=== PATIENT | female | born 1960 | race Caucasian/White ===

== ENCOUNTER → 2018-07-22 09:52 | Outpatient (BNVA) | payer MEDICARE, MEDICAID, SELFPAY | PROVIDERS: PCP Family Medicine; Visit Provider Orthopaedic Surgery | DX: M17.12 Unilateral primary osteoarthritis, left knee (principal); Z96.651 Presence of right artificial knee joint | CPT/HCPCS: 20610; 99211; 99213; J7325 ==

== ENCOUNTER 2018-08-16 15:09 | Emergency (ER) | payer MEDICARE, MEDICAID, SELFPAY ==
[2018-08-16 15:37] VITALS: BP 145/77; PULSE 112; RESP 18; TEMP 36.7; O2SAT 93
--- NOTE | 2018-08-16 15:47 | DI.RAD_ITS ---
SYMPTOM/DIAGNOSIS: COUGH, WHEEZE PA AND LATERAL CHEST: Comparison is made with 10/19/14. The heart size is normal. There is minimal atelectasis versus scarring at the left lung base. No infiltrate, effusion or pulmonary edema is seen. IMPRESSION: No acute abnormality.
--- NOTE | 2018-08-16 15:50 | ED.GENADUL_ITS ---
Discharge Plan Disposition Patient Disposition: HOME Condition: Improving Discharge Details Chief Complaint: RespSymp Clinical Impression: Acute bronchitis with bronchospasm Primary Care Provider: Shahzad Olivarez ED Provider: Jimmy Caban Home Meds and New Rx's Prescriptions: New prednisone 20 mg tablet 40 mg PO DAILY 5 Days Qty: 10 RF: 0 doxycycline hyclate 100 mg capsule 100 mg PO BID 10 Days Qty: 20 RF: 0 Continued simvastatin 20 MG tablet 1 tab PO DAILY Qty: 90 RF: 3 diclofenac sodium 75 MG tablet,delayed release (DR/EC) 75 mg PO BID PRNQty: 180 RF: 3 doxepin 100 MG capsule 200 mg PO HS Qty: 60 RF: 11 gabapentin 300 MG capsule 300 - 600 mg PO BID Qty: 90 RF: 5 lisinopril-hydrochlorothiazide 1 EACH tablet 1 tab-cap PO DAILY Qty: 90 RF: 3 ProAir HFA 90 mcg/actuation HFA aerosol inhaler 2 puff Inhalation QID PRN (Reason: bronchospasm) Qty: 6.7 RF: 3 acetaminophen [Tylenol] 325 MG tablet 2 tab PO PRN PRNRF: 0 aripiprazole [Abilify] 20 MG tablet 30 mg PO DAILY RF: 0 Discharge Instructions Instructions: Acute Bronchitis (ED) Additional Instructions: Home to rest today. Small, frequent sips of fluids to maintain hydration. Begin antibiotics today, continue the prednisone tomorrow as prescribed. Return for any acute concerns. Please follow-up with regular doctor if not improved in 5days Medical Decision Making Pleasant 57-year-old female with a history of COPD presents with 2 days of cough, congestion and now some mild to moderate wheezing. She has a O2 sat of 93% and had a triage pulse of 112. She is speaking full sentences in no acute distress. Differential diagnosis includes bronchitis with bronchospasm, must exclude underlying pneumonia. Patient given DuoNeb and referred for chest x- ray. Question linear atelectasis on the left base, otherwise no acute findings. She is improved with inhaled updraft, will require a burst of steroids given her underlying COPD and given question of underlying pneumonitis I will place her on a course of antibiotics. She is stable and appropriate discharge. Discussed return precautions as well as follow-up with her prior to discharge HPI General Mode of arrival: ambulatory . Date/Time Provider Initiated Documentation: 08/16/18 15:40 . Limitations to Documentation: no limitations . Information obtained by: patient . History of Present Illness 57 year old F presents to the emergency department with the chief complaint of 2 days of cough, congestion, wheezing, described as similar to prior episodes, Quality is described as dull, and is localized to the chest. Patient reports no radiation. Patient started experiencing this day(s) and it has been intermittent. No relieving factors improve symptom(s), No exacerbating facto rs reported . Patient notes cough. Patient did receive the following treatments prior to arrival, other (Albuterol) Related Data Home Medications Medication Instructions Recorded Confirmed acetaminophen [Tylenol] 2 tab PO PRN PRN 10/19/14 08/16/18 aripiprazole [Abilify] 30 mg PO DAILY 02/08/15 08/16/18 diclofenac sodium 75 mg PO BID PRN #180 tab-cap 08/16/17 08/16/18 simvastatin 1 tab PO DAILY #90 tab-cap 08/16/17 08/16/18 doxepin 200 mg PO HS #60 tab-cap 10/25/17 08/16/18 gabapentin 300 - 600 mg PO BID #90 tab-cap 10/29/17 07/22/18 lisinopril-hydrochlorothiazide 1 tab-cap PO DAILY #90 tab-cap 02/12/18 08/16/18 albuterol sulfate HFA 90 2 puff INHALATION QID PRN #6.7 gm 05/13/18 08/16/18 mcg/actuation aerosol inhaler doxycycline hyclate 100 mg PO BID 10 Days #20 cap 08/16/18 prednisone 40 mg PO DAILY 5 Days #10 tab 08/16/18 Previous Rx's Medication Instructions Recorded simvastatin 1 tab PO DAILY #90 tab-cap 08/16/17 doxepin 200 mg PO HS #60 tab-cap 10/25/17 gabapentin 300 - 600 mg PO BID #90 tab-cap 10/29/17 lisinopril-hydrochlorothiazide 1 tab-cap PO DAILY #90 tab-cap 02/12/18 albuterol sulfate HFA 90 2 puff INHALATION QID PRN #6.7 gm 05/13/18 mcg/actuation aerosol inhaler doxycycline hyclate 100 mg PO BID 10 Days #20 cap 08/16/18 prednisone 40 mg PO DAILY 5 Days #10 tab 08/16/18 Allergies Allergy/AdvReac Type Severity Reaction Status Date / Time No Known Allergies Allergy Unverified 08/16/18 15:41 General Stated Complaint: RespSymp BUFFY: 3 Review of Systems Review of Systems 8 systems reviewed and otherwise negative [facility] Surgical History Cholecystectomy (~06/2013) EGD - MAC KNEE SURGERY Replacement of total knee joint (04/17/17) Total replacement of hip ULCER/STOMACH SURGERY Family History Mother Essential hypertension Hyperlipidemia Stroke Grandfather Essential hypertension Stroke Father No problems noted. Grandmother Essential hypertension Stroke Grandfather Essential hypertension Stroke Grandmother No problems noted. Son No problems noted. Son No problems noted. Social History Smoking/Tobacco Use Status: Current-Occasional Exam Narrative Exam Narrative: GEN: awake, alert, oriented 3. Pleasant, well groomed, interactive. HEAD: Normocephalic, atraumatic ENT: Mucous membranes moist, oropharynx unremarkable, External ear exam unremarkable EYES: PERRL, EOMI NECK: Full ROM, no RADHA, no menigismus CHEST/RESP: Nontender,l, bilateral end expiratory wheeze CARDIOVASCULAR: RRR, no murmur, rub hazel. 2+ Rad pulse bilateral ABDOMEN: Soft, nontender, no mass. +Bowel sounds EXT: Full ROM, no edema, no rash Neuro: Grossly normal neurologic exam, conversant, interactive. Psych: Speech fluent, thoughts congruent, affect normal Course Vital Signs Temperature 36.7 C 08/16/18 15:37 Pulse 112 H 08/16/18 15:37 Respiratory Rate 18 08/16/18 15:37 Blood Pressure 145/77 H 08/16/18 15:37 Pulse Oximetry 93 L 08/16/18 15:37 Temperature 36.7 C 08/16/18 15:37 Temperature Source Temporal Artery Scan 08/16/18 15:37 Pulse 112 H 08/16/18 15:37 Respiratory Rate 18 08/16/18 15:37 Blood Pressure 145/77 H 08/16/18 15:37 Blood Pressure Position Sitting 08/16/18 15:37 Pulse Oximetry 93 L 08/16/18 15:37 Oxygen Delivery Method Room Air 12/29/18 15:37 Oxygen Flow Rate 0 08/16/18 15:37 Pain Level 0 08/16/18 15:37
[2018-08-16] MEDS: predniSONE 20 MG TAB 60 MG PO (15:52)
[2018-08-16 15:54] VITALS: RESP 1; RESP 8
[2018-08-16] MEDS: Albuterol/Ipratropium 3 ML UPD VIAL UPD (15:54)
[2018-08-16 16:24] VITALS: O2SAT 95
--- NOTE | 2018-08-16 16:46 | DI.VRAD_ITS ---
EXAM: XR Chest, 2 Views EXAM DATE/TIME: 08/16/2018 3:48 PM CLINICAL HISTORY: 57 years old, female; Signs and symptoms; Cough and wheezing TECHNIQUE: XR of the chest, 2 views. COMPARISON: No relevant prior studies available. FINDINGS: Lungs: Minimal linear atelectasis and/or scarring the left lung base. No pulmonary consolidation. Mild COPD. Pleural space: No pleural effusion or pneumothorax. Heart/Mediastinum: The cardiomediastinal silhouette and pulmonary vasculature are within normal limits. Bones/joints: There is mild scoliosis of the thoracolumbar spine. IMPRESSION: 1. Mild COPD. 2. Linear atelectasis and/or scarring left lung base. Dictated and Authenticated by: Beny Reed MD. Ordering:GEOVANI Marquez MD
== END 2018-08-16 16:52 | disposition home or self-care (01) ==
PROVIDERS: Emergency Provider Emergency Medicine; PCP Family Medicine
DX: J44.0 Chronic obstructive pulmonary disease with (acute) lower respiratory infection (principal); F17.210 Nicotine dependence, cigarettes, uncomplicated
CPT/HCPCS: 94640; 99283; 71046; J7512; J7620

== ENCOUNTER 2018-08-17 12:09 | Inpatient (IN) | payer MEDICARE, MEDICAID, SELFPAY ==
[2018-08-17] VITALS (74 sets, daily range): BP systolic 80–159; BP diastolic 64–113; PULSE 102–133; RESP 4–31; TEMP 36.5–37.5; O2SAT 84–93
--- NOTE | 2018-08-17 12:45 | W.ED.GENAD ---
Discharge Plan Disposition Patient Disposition: [facility] INPATIENT Condition: Serious Discharge Details Chief Complaint: SOB Clinical Impression: Asthma exacerbation in COPD, Bronchitis Primary Care Provider: Shahzad Olivarez ED Provider: Juan Douglass Home Meds and New Rx's Prescriptions: No Action simvastatin 20 MG tablet 1 tab PO DAILY Qty: 90 RF: 3 diclofenac sodium 75 MG tablet,delayed release (DR/EC) 75 mg PO BID PRNQty: 180 RF: 3 doxepin 100 MG capsule 200 mg PO HS Qty: 60 RF: 11 gabapentin 300 MG capsule 300 - 600 mg PO BID Qty: 90 RF: 5 lisinopril-hydrochlorothiazide 1 EACH tablet 1 tab-cap PO DAILY Qty: 90 RF: 3 ProAir HFA 90 mcg/actuation HFA aerosol inhaler 2 puff Inhalation QID PRN (Reason: bronchospasm) Qty: 6.7 RF: 3 acetaminophen [Tylenol] 325 MG tablet 2 tab PO PRN PRNRF: 0 aripiprazole [Abilify] 20 MG tablet 30 mg PO DAILY RF: 0 prednisone 20 mg tablet 40 mg PO DAILY 5 Days Qty: 10 RF: 0 doxycycline hyclate 100 mg capsule 100 mg PO BID 10 Days Qty: 20 RF: 0 Medical Decision Making 12:53 --57-year-old female with history of COPD, recently seen and diagnosed with bronchitis and treated with prednisone and doxycycline, returns with worsening symptoms. Patient is tachypneic and hypoxic on room air and tachycardic. She is requiring 6 L of oxygen to maintain saturation at 93%. She has decreased breath sounds bilaterally with some wheeze and prolonged expiratory phase. Concerned about persistent acute COPD exacerbation with bronchitis. She may have a pneumonia as there was a linear atelectasis noted on chest x-ray yesterday. Plan is to consult respiratory therapy to assist in management. I will order a DuoNeb treatment at this time as well as additional Solu-Medrol to be given IV. Plan to repeat chest x-ray. Will check influenza testing. ECG reviewed and interpreted by me: Sinus tachycardia 128 bpm, normal axis, no STEMI, nondiagnostic. 15:38 -- Patient reassessed: Feels a little better and is moving more air. Respiratory therapy has assisted in the care of the patient. Patient remains tachycardic and hypoxic. Labs reviewed and nondiagnostic. Reviewed and no significant change from yesterday. Plan to cover more broadly with Levaquin 750 mg IV. Plan to admit for further treatment given failing outpatient management and ED course. 15:54 -- Spoke with Dr. Ledesma who will admit - requests bridging orders to floor and TSH, lactate and blood cultures pending at time of admission. HPI General Mode of arrival: ambulatory. Date/Time Provider Initiated Documentation: 08/17/18 12:32. Limitations to Documentation: no limitations. Information obtained by: patient. HPI Narrative: 57yo female with history of COPD, presents with chief complaint of shortness of breath. Patient notes that she was here yesterday for 2-3 days of cough and shortness of breath. She had a chest x-ray that revealed questionable linear atelectasis of the left base, she was treated for bronchitis with bronchospasm and received albuterol neb and prednisone and doxycycline. She has been taking medication as prescribed and noted that she seemed worse today. Last night she used her albuterol inhaler and it did not seem to help. Symptoms are now severe. She states that she feels like she has trouble catching her breath. Cough remains nonproductive. No modifiers. She has no associated leg swelling, calf pain or chest pain. Related Data Home Medications Medication Instructions Recorded Confirmed acetaminophen [Tylenol] 2 tab PO PRN PRN 10/19/14 08/17/18 aripiprazole [Abilify] 30 mg PO DAILY 02/08/15 08/16/18 diclofenac sodium 75 mg PO BID PRN #180 tab-cap 08/16/17 08/16/18 simvastatin 1 tab PO DAILY #90 tab-cap 08/16/17 08/17/18 doxepin 200 mg PO HS #60 tab-cap 10/25/17 08/16/18 gabapentin 300 - 600 mg PO BID #90 tab-cap 10/29/17 08/17/18 lisinopril-hydrochlorothiazide 1 tab-cap PO DAILY #90 tab-cap 02/12/18 08/17/18 albuterol sulfate HFA 90 2 puff INHALATION QID PRN #6.7 gm 05/13/18 08/17/18 mcg/actuation aerosol inhaler doxycycline hyclate 100 mg PO BID 10 Days #20 cap 08/16/18 08/17/18 prednisone 40 mg PO DAILY 5 Days #10 tab 12/29/18 12/30/18 Previous Rx's Medication Instructions Recorded simvastatin 1 tab PO DAILY #90 tab-cap 08/16/17 doxepin 200 mg PO HS #60 tab-cap 10/25/17 gabapentin 300 - 600 mg PO BID #90 tab-cap 10/29/17 lisinopril-hydrochlorothiazide 1 tab-cap PO DAILY #90 tab-cap 02/12/18 albuterol sulfate HFA 90 2 puff INHALATION QID PRN #6.7 gm 05/13/18 mcg/actuation aerosol inhaler doxycycline hyclate 100 mg PO BID 10 Days #20 cap 08/16/18 prednisone 40 mg PO DAILY 5 Days #10 tab 08/16/18 Allergies Allergy/AdvReac Type Severity Reaction Status Date / Time No Known Allergies Allergy Unverified 08/17/18 12:24 General Stated Complaint: SOB BUFFY: 3 Review of Systems Review of Systems All systems reviewed & are unremarkable except as noted in HPI and below Cardiovascular Denies edema and Reports dyspnea Respiratory Reports cough, Reports dyspnea and Reports wheezing Allergic/Immunologic Reports wheezing PFSH Medical History COPD (chronic obstructive pulmonary disease) (Chronic) Surgical History Cholecystectomy (~06/2013) EGD - MAC KNEE SURGERY Replacement of total knee joint (04/17/17) Total replacement of hip ULCER/STOMACH SURGERY Family History Mother Essential hypertension Hyperlipidemia Stroke Grandfather Essential hypertension Stroke Father No problems noted. Grandmother Essential hypertension Stroke Grandfather Essential hypertension Stroke Grandmother No problems noted. Son No problems noted. Son No problems noted. Social History Smoking/Tobacco Use Status: Current-Occasional Exam Const General: cooperative and no acute distress HENMT Head: normocephalic and atraumatic Mouth: moist mucous membranes Eyes Conjunctivae: normal conjunctivae Sclera: normal sclerae EOM: EOM intact bilaterally Neck Neck: trachea midline and no JVD Resp Effort & Inspection: cough, no stridor and tachypneic Auscultation: diminished lung sounds bilaterally, no rales and wheezes expiratory wheezes Cardio Jugular venous pressure: no JVD Rate: tachycardic Rhythm: regular rhythm GI Palpation: soft, not firm, no guarding, no masses, not rigid and nontender Skin General skin exam: no rashes or lesions noted Neuro General: alert, awake, oriented x3 and tone normal Extrem General: no calf tenderness bilaterally and no edema Psych Appearance: grossly normal Mental Status: mental status grossly normal Speech and Movement: speech and movement normal Course Vital Signs Temperature 37 C 08/17/18 12:21 Pulse 133 H 08/17/18 12:21 Respiratory Rate 20 08/17/18 12:21 Blood Pressure 159/84 H 08/17/18 12:21 Pulse Oximetry 86 L 08/17/18 12:21 Temperature 37.2 C 08/17/18 12:38 Temperature Source Oral 08/17/18 12:38 Pulse 133 H 08/17/18 12:21 Respiratory Rate 20 08/17/18 12:39 Respiratory Effort 08/17/18 12:39 Respiratory Depth Normal 08/17/18 12:39 Respiratory Pattern Normal 08/17/18 12:39 Blood Pressure 159/84 H 08/17/18 12:21 Blood Pressure Position Sitting 08/17/18 12:21 Pulse Oximetry 86 L 08/17/18 12:25 Oxygen Delivery Method Nasal Cannula 08/17/18 12:25 Oxygen Flow Rate 6 08/17/18 12:25 Pain Level 0 08/17/18 12:21
[2018-08-17] MEDS: Albuterol/Ipratropium 3 ML UPD VIAL UPD ×2 (12:56→21:36)
[2018-08-17] MEDS: Normal Saline 1,000 ML 1000 ML IV (13:00)
[2018-08-17] MEDS: methylPREDNISolone SUCC 40 MG VIAL IVP (13:09)
[2018-08-17 13:11] LABS: Abs Immature Grans 0.03 k/cumm (0.0-0.09); Absolute Basophil Count 0.02 k/cumm (0.0-0.2); Absolute Lymphocyte Count 0.83 k/cumm (1.2-3.4); Absolute Neutrophil Count 7.17 k/cumm (1.2-6.7); Basophils % 0.2; HCT 46.1 % (36.0-46.0); HGB 15.2 g/dL (12.0-15.5); Immature Grans % 0.4; Lymphocytes % 9.9; Mean Corpuscular Hemoglobin 29.6 pg (27.0-33.0); Mean Corpuscular Volume 89.9 fL (80-95); Mean Platelet Volume 9.6 fL (8.0-11.0); Monocytes % 3.6; Neutrophils % 85.9; Platelet Count 296 x1000/uL (130-400); RBC 5.13 m/cumm (4.00-5.20); White Blood Cell Count 8.35 k/cumm (4.4-10.8)
[2018-08-17 13:25] LABS: ALT 33 U/L (12-78); AST 20 U/L (15-37); Albumin 3.7 g/dL (3.4-5.0); Alkaline Phosphatase 107 U/L (46-116); Anion Gap 9.5 mmol/L (3-11); BUN 10 mg/dL (7-18); Bilirubin, Total 0.3 mg/dL (0.2-1.0); CO2 26.5 mmol/L (21.0-32.0); CREATININE 0.63 mg/dL (0.55-1.02); Calcium 10.1 mg/dL (8.5-10.1); Chloride 101 mmol/L (98-107); Glucose 154 mg/dL (70-100); Magnesium 1.8 mg/dL (1.8-2.4); Sodium 137 mmol/L (136-145); Total Protein 7.8 g/dL (6.4-8.2)
[2018-08-17] MEDS: Albuterol/Ipratropium 3 ML UPD VIAL (13:34)
--- NOTE | 2018-08-17 15:03 | DI.RAD_ITS ---
SYMPTOM/DIAGNOSIS: F/U, COPD PA AND LATERAL CHEST: Comparison is made with 08/16/18. Heart size and pulmonary vasculature are stable. The lungs show no evidence of congestive heart failure or pneumonia. No effusions or pneumothoraces are identified. There is hyperinflation of the lungs with flattened diaphragms consistent with underlying COPD. Stable degenerative changes are seen in the spine. IMPRESSION: No acute pulmonary process.
--- NOTE | 2018-08-17 15:49 | DI.VRAD_ITS ---
EXAM: XR Chest, 2 Views EXAM DATE/TIME: 08/17/2018 3:04 PM CLINICAL HISTORY: 57 years old, female; Signs and symptoms; Cough TECHNIQUE: XR of the chest, 2 views. COMPARISON: CR XR CHEST 2V PA LATERAL 08/16/2018 4:31 PM FINDINGS: Lungs: Stable interstitial prominence. Emphysematous changes. No focal consolidation. Pleural space: Unremarkable. No pleural effusion. No pneumothorax. Heart/Mediastinum: Unremarkable. No cardiomegaly. Bones/joints: Unremarkable. IMPRESSION: No acute findings. Dictated and Authenticated by: Ruthie Tay MD. Ordering:REHAN Martinez MD
[2018-08-17] MEDS: LEVOFLOXACIN 750 MG/150 ML BAG 100 MG IVPB (16:42)
--- NOTE | 2018-08-17 20:18 | HPE_ITS ---
Date of service: 08/17/18 Time of Service: 20:06 Assessment and Plan (1) COPD (chronic obstructive pulmonary disease): Current visit: Yes Status: Chronic With apparent acute exacerbation, with noted change in cough and sputum production. Repeat chest x-ray today again negative for infiltrate. Initiate IV Solu-Medrol, and aggressive nebulizer therapy. Given change in cough and sputum production will also benefit from antibiotic therapy -received high- dose Levaquin in the ED. Will initiate 500 mg of daily levofloxacin starting tomorrow. Continue supplemental oxygen and wean as appropriate. (2) Tobacco use disorder: Current visit: Yes Status: Chronic Encourage cessation and maintain on nicotine replacement therapy while hospitalized (3) Hyperthyroidism: Current visit: Yes Status: Resolved History of hyperthyroidism that appears resolved. Patient is not on replacement therapy. Repeat TSH is normal despite acute illness. (4) Gastric ulcer: Current visit: Yes Status: Chronic History of gastric ulcers, not on PPI therapy. Given need for steroids will initiate IV Protonix (5) DVT prophylaxis: Current visit: Yes Status: Acute SC Lovenox. History of Present Illness Chief Complaint: Dyspnea Narrative: 57-year-old woman with past medical history significant for ongoing tobacco use and likely underlying COPD, referred for admission from [facility] emergency department for a likely bronchitis with COPD exacerbation. This is Giacobbe is a prior medical history significant for likely COPD and ongoing tobacco abuse. She also has a prior history of gastric ulcers, depression and anxiety, and chronic lower back pain. Hypertension and dyslipidemia are also listed as her past medical history, as is osteoarthritis. She was previously incarcerated due to narcotic abuse and distribution, as well as noted sedative drug abuse as well. Patient reports onset of dyspnea yesterday, prompting an ED visit. At that time her lab work was unremarkable, she was afebrile and non-hypoxic, and her imaging with a chest x-ray showed no infiltrate. She was initiated on oral doxycycline and prednisone, and discharged home. However she returned today with worsening of her symptoms, including noted hypoxia and tachycardia, albeit still afebrile. Repeat imaging of the chest showed no evidence of infiltrate. Given her ongoing hypoxia and tachycardia she was referred for admission for further evaluation and treatment. Review of Systems Review of Systems All systems reviewed & are unremarkable except as noted in HPI and below [facility] Medical History COPD (chronic obstructive pulmonary disease) (Chronic) Weight disorder (Chronic) Transaminase or LDH elevation (Chronic) Tobacco use disorder (Chronic) Sleep disturbance (Chronic 07/18/05) Sedative, hypnotic or anxiolytic abuse (Chronic) Hyperthyroidism (Resolved) Gastroparesis (Chronic 07/18/05) Gastric ulcer (Chronic 08/18/05) Depression (Chronic 07/18/05) COPD (chronic obstructive pulmonary disease) (Chronic) Surgical History History of back surgery (Chronic 10/17/17) Cholecystectomy (~06/2013) EGD - MAC KNEE SURGERY Replacement of total knee joint (04/17/17) Total replacement of hip ULCER/STOMACH SURGERY Family History Mother Essential hypertension Hyperlipidemia Stroke Grandfather Essential hypertension Stroke Father No problems noted. Grandmother Essential hypertension Stroke Grandfather Essential hypertension Stroke Grandmother No problems noted. Son No problems noted. Son No problems noted. Social History Smoking/Tobacco Use Status: Current-Occasional additional social history: The patient is . Has 2 children. 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 She has a [id number]-year history of smoking, currently ongoing. Denies any current illicit drug or alcohol use, but previously used and sold narcotics. Meds Home Medications Medication Instructions Recorded Confirmed Type acetaminophen [Tylenol] 2 tab PO PRN PRN 10/19/14 08/17/18 History aripiprazole [Abilify] 30 mg PO DAILY 02/08/15 08/16/18 History diclofenac sodium 75 mg PO BID PRN #180 tab-cap 08/16/17 08/16/18 History simvastatin 1 tab PO DAILY #90 tab-cap 08/16/17 08/17/18 Rx doxepin 200 mg PO HS #60 tab-cap 10/25/17 08/16/18 Rx gabapentin 300 - 600 mg PO BID #90 tab-cap 10/29/17 08/17/18 Rx lisinopril-hydrochlorothiazide 1 tab-cap PO DAILY #90 tab-cap 02/12/18 08/17/18 Rx albuterol sulfate HFA 90 2 puff INHALATION QID PRN #6.7 gm 05/13/18 08/17/18 Rx mcg/actuation aerosol inhaler doxycycline hyclate 100 mg PO BID 10 Days #20 cap 08/16/18 08/17/18 Rx prednisone 40 mg PO DAILY 5 Days #10 tab 08/16/18 08/17/18 Rx Allergies Allergy/AdvReac Type Severity Reaction Status Date / Time No Known Allergies Allergy Unverified 08/17/18 12:24 Exam Narrative Exam Narrative: General: Patient appears comfortable, AAOX3, NAD Neck: Supple CV: Regular, tachycardic, S1S2, No rubs, murmurs, or gallops. Pulmonary: Markedly decreased breath sounds diffusely with trace wheezing, no crackles or rhonchi Abdomen: + Bowel Sounds, soft, nontender, nondistended, obese in contour Vascular: No lower extremity edema Psych: Normal mood and affect. Results Imaging Chest x-ray: report reviewed Additional studies: EXAM: XR Chest, 2 Views EXAM DATE/TIME: 08/17/2018 3:04 PM CLINICAL HISTORY: 57 years old, female; Signs and symptoms; Cough TECHNIQUE: XR of the chest, 2 views. COMPARISON: CR XR CHEST 2V PA LATERAL 08/16/2018 4:31 PM FINDINGS: Lungs: Stable interstitial prominence. Emphysematous changes. No focal consolidation. Pleural space: Unremarkable. No pleural effusion. No pneumothorax. Heart/Mediastinum: Unremarkable. No cardiomegaly. Bones/joints: Unremarkable. IMPRESSION: No acute findings. Labs : 08/17/18 13:00 08/17/18 13:00 Laboratory Results - last 24 hr 08/17/18 08/17/18 08/17/18 13:00 13:00 16:05 WBC 8.35 RBC 5.13 Hgb 15.2 Hct 46.1 H MCV 89.9 MCH 29.6 MCHC 33.0 RDW 13.0 Plt Count 296 MPV 9.6 Immature Gran % 0.4 Neutrophils % 85.9 Lymphocytes % 9.9 Monocytes % 3.6 Eosinophils % 0.0 Basophils % 0.2 Absolute Neutrophils 7.17 H Absolute Lymphocytes 0.83 L Absolute Monocytes 0.30 Absolute Eosinophils 0.00 Absolute Basophils 0.02 Sodium 137 Potassium 4.0 Chloride 101 Carbon Dioxide 26.5 Anion Gap 9.5 BUN 10 Creatinine 0.63 Estimated GFR/1.73 m2 >= 60.00 Glucose 154 H Lactate 1.0 Calcium 10.1 Magnesium 1.8 Total Bilirubin 0.3 AST 20 ALT 33 Alkaline Phosphatase 107 Total Protein 7.8 Albumin 3.7 Last Vital Signs Temp 36.5 C 08/17/18 19:34 Pulse 102 H 08/17/18 19:34 Resp 20 08/17/18 19:34 BP 141/102 H 08/17/18 19:34 Pulse Ox 92 L 08/17/18 19:34
[2018-08-17] MEDS: Normal Saline Flush 10 ML SYR IVP (21:42)
[2018-08-17] MEDS: methylPREDNISolone SUCC 125 MG VIAL 60 MG IVP (21:42)
[2018-08-17] MEDS: Pantoprazole 40 MG VIAL IVP (21:46)
[2018-08-17] MEDS: Enoxaparin 40 MG/0.4 ML SYR SC (21:50)
[2018-08-17] MEDS: Doxepin 50 MG CAP 200 MG PO (22:04)
[2018-08-17] MEDS: Levalbuterol 1.25 MG/3 ML UPD VIAL UPD (22:44)
[2018-08-17] MEDS: Acetaminophen 325 MG TAB PO (23:24)
[2018-08-17] MEDS: Benzonatate 100 MG CAP PO (23:24)
[2018-08-18] VITALS (8 sets, daily range): BP systolic 132–136; BP diastolic 72–81; PULSE 103–117; RESP 4–24; TEMP 37–37.5; O2SAT 93–95
[2018-08-18] MEDS: Albuterol/Ipratropium 3 ML UPD VIAL UPD ×3 (01:23→15:36)
[2018-08-18] MEDS: methylPREDNISolone SUCC 125 MG VIAL 60 MG IVP ×3 (03:50→20:28)
[2018-08-18] MEDS: Normal Saline Flush 10 ML SYR IVP ×5 (03:50→21:43)
[2018-08-18] MEDS: Levalbuterol 1.25 MG/3 ML UPD VIAL UPD ×2 (04:02→18:11)
[2018-08-18 07:04] LABS: Abs Immature Grans 0.01 k/cumm (0.0-0.09); Absolute Basophil Count 0.01 k/cumm (0.0-0.2); Absolute Lymphocyte Count 0.42 k/cumm (1.2-3.4); Absolute Monocyte Count 0.13 k/cumm (0.11-0.7); Absolute Neutrophil Count 7.38 k/cumm (1.2-6.7); Basophils % 0.1; HCT 45.4 % (36.0-46.0); HGB 14.5 g/dL (12.0-15.5); Immature Grans % 0.1; Lymphocytes % 5.3; Mean Corp. HGB Concentration 31.9 g/dL (32.0-36.0); Mean Corpuscular Hemoglobin 29.2 pg (27.0-33.0); Mean Corpuscular Volume 91.3 fL (80-95); Mean Platelet Volume 9.9 fL (8.0-11.0); Monocytes % 1.6; Neutrophils % 92.9; Platelet Count 284 x1000/uL (130-400); RBC 4.97 m/cumm (4.00-5.20); RBC Distribution Width 13.3 % (11.7-14.6); White Blood Cell Count 7.95 k/cumm (4.4-10.8)
[2018-08-18 07:11] LABS: Anion Gap 12.5 mmol/L (3-11); BUN 12 mg/dL (7-18); CO2 27.5 mmol/L (21.0-32.0); CREATININE 0.75 mg/dL (0.55-1.02); Calcium 10.1 mg/dL (8.5-10.1); Chloride 100 mmol/L (98-107); Glucose 171 mg/dL (70-100); Potassium 3.8 mmol/L (3.5-5.1); Sodium 140 mmol/L (136-145)
[2018-08-18] MEDS: Magnesium Oxide 400 MG TAB PO (08:38)
[2018-08-18] MEDS: ARIPiprazole 15 MG TAB 30 MG PO (08:38)
[2018-08-18] MEDS: Simvastatin 20 MG TAB PO (08:38)
[2018-08-18] MEDS: Lisinopril 10 MG TAB PO (08:38)
[2018-08-18] MEDS: Potassium Chloride 20 MEQ TABCR PO (08:38)
[2018-08-18] MEDS: Nystatin POWDER 60 GM JAR TP ×2 (08:39→20:29)
--- NOTE | 2018-08-18 11:16 | PDOC.CMIN ---
- If Service Date Differs Date of service: 08/18/18 Time of Service: 11:16 Care Management Initial Assess REASON FOR HOSPITALIZATION:: COPD Exacerbation PAST MEDICAL HISTORY/PAST SURGICAL HISTORY:: COPD (chronic obstructive pulmonary disease) (Chronic). Weight disorder (Chronic). Transaminase or LDH elevation (Chronic). Tobacco use disorder (Chronic). Sleep disturbance (Chronic 07/18/05). Sedative, hypnotic or anxiolytic abuse (Chronic). Hyperthyroidism (Resolved). Gastroparesis (Chronic 07/18/05). Gastric ulcer (Chronic 08/18/05). Depression (Chronic 07/18/05). COPD (chronic obstructive pulmonary disease) (Chronic). History of back surgery (Chronic 10/17/17). Cholecystectomy (~06/2013). EGD - MAC. KNEE SURGERY. Replacement of total knee joint (04/17/17). Total replacement of hip. ULCER/STOMACH SURGERY PREVIOUS FUNCTIONAL STATUS/SOCIAL/FAMILY SUPPORTS:: Chapis resides with her mother Cherelle in [place]. She has two sons whom both reside out of state, she states that she sees them throughout the year. Chapis statest ahts he has been on disability for the past 10 years and prefers not to discuss her prior work history. She is independent at baseline, drives, and manages ADLs CURRENT FUNCTIONAL STATUS:: Currently Chapis is sitting up in bed this morning. She states that she has been having a coughing spell though states that she is feeling somewhat better. ADVANCE DIRECTIVES:: On file - mother Cherelle Akbar is agent Has patient been provided with information about the portal?: Yes Did the patient sign up for the portal?: No CODE STATUS:: Full Code INSURANCE COVERAGE / FINANCIAL ISSUES:: Medicare, Medicaid CURRENT HOME/COMMUNITY SERVICES/EQUIPMENT:: Currently Chapis has no services or medical equipment in the community. PRIMARY CARE PHYSICIAN:: Dr. Olivarez POTENTIAL DISCHARGE NEEDS:: F/U appointment with PCP PATIENT/FAMILY EDUCATION NEEDS:: Review DC instructions, any limitations, and ongoing DC planning discussion. Discuss 'Ask Me Three' ANTICIPATED BARRIERS TO DISCHARGE:: None identified at this time. TRANSPORTATION:: Via private vehicle with mother Cherelle PLAN:: Chapis will return home with no anticipated services. She will F/U with PCP and plan of care as prescribed. Chapis's mom Cherelle to transport when medically cleared.
[2018-08-18] MEDS: Benzonatate 100 MG CAP PO (11:52)
--- NOTE | 2018-08-18 13:16 | CHAPLAIN ---
Chapis was sitting up on the edge of her bed texting, when I visited. She said she didn't need a brazer crawler torch visit, but was friendly. She lives with her mom who has also recently has been sick.
--- NOTE | 2018-08-18 13:40 | PHARADMIT ---
Addendum entered by Timothy King III 08/22/18 11:46: Pharmacy Note Subjective MD notes that patient is not at baseline yet. Ambulating, decreasing O2 requirement. Objective VS-OK HR-102 No Labs O2 @ 1 L SA-O2-91% Large BM yesterday. Assessment Levaquin completes today. Plan MD will discharge home once she is off O2 and at baseline Original Note: Addendum entered by Jackelin Harvey 08/21/18 10:34: Pharmacy Note Subjective probably will keep pt another day, pt still requiring O2 Objective no labs or vs listed Assessment Levofloxain continues day 5, steroids starting to wean as of yesterday, PPI to continue while on steroids Plan continue to monitor vitals, labs, med changes Original Note: Addendum entered by Dahiana Alexandre 08/20/18 16:31: Pharmacy Note Subjective ok night, feeling better, coughing less Objective HR 107 (trending down) other vitals okay; Na 135; WBC 11.57; BG 143 Assessment Bad case of bronchitis with COPD exacerbation (previously undiagnosed) Continue levaquin 500mg daily, nebulizer therapy and IV solumedrol (dose decreased today) Sputum culture shows moderate growth Plan Continue to monitor vitals, labs, med changes Original Note: Admission Pharmacy Clinical Review COPD exacerbation, bronchitis Code Status Full Code Current Weight 117.934 kg Renally Cleared and Narrow Therapeutic Index Meds Crcl 108.9 mL/min using adjusted body weight QTc Value / Action Taken QTc 441 BP Control, Fever BP 132/80 afebrile Electrolytes reviewed within normal limits DVT Prophylaxis enoxaparin Opiate Usage / Scheduled Bowel Regimen Ordered pnp/prn Plt/SCr for Heparin / Enoxaparin plt 284 SCr 0.75 INR for Warfarin n/a H/H stable, WBC/Bands h/h 14.5/45.4 wbc 7.95 Antibiotic appropriateness levofloxacin Cultures and Sensitivities blood and sputum cultures pending rapid flu negative Surgical ABX d/c within 24 hr n/a DM control / Insulin Dosing BG 171 none Heart Failure (Check EF%) (FRANCISCO's, B-Block, Diuretics) hydrochlorothiazide, lisinopril IV to PO Switch n/a Home Meds Reviewed multiple [employer] depressants- aripiprazole, gabapentin, doxepin Home Meds Not Ordered albuterol (has duonebs ordered), doxycycline(has other abx ordered), gabapentin (pt not taking per med rec comment), prednisone (has IV steroid ordered) Comments
[2018-08-18] MEDS: LEVOFLOXACIN 500 MG/100 ML BAG 100 MG IVPB (15:38)
--- NOTE | 2018-08-18 19:52 | PGE_ITS ---
Date of Service Date of service: 08/18/18 Time of Service: 19:48 Assessment and Plan (1) COPD (chronic obstructive pulmonary disease): Current visit: Yes Status: Chronic With apparent acute exacerbation, with noted change in cough and sputum production. Repeat chest x-ray at time of admission again negative for infiltrate. Continue IV Solu-Medrol and aggressive nebulizer therapy. Given change in cough and sputum production will also benefit from antibiotic therapy - received high- dose Levaquin in the ED. Will continue 500 mg of daily levofloxacin starting today, day #2. Continue supplemental oxygen and wean as appropriate. (2) Tobacco use disorder: Current visit: Yes Status: Chronic Encourage cessation and maintain on nicotine replacement therapy while hospitalized. (3) Hyperthyroidism: Current visit: Yes Status: Resolved History of hyperthyroidism that appears resolved. Patient is not on replacement therapy. Repeat TSH is normal despite acute illness. (4) Gastric ulcer: Current visit: Yes Status: Chronic History of gastric ulcers, not on PPI therapy. Given need for steroids will continue IV Protonix. (5) DVT prophylaxis: Current visit: Yes Status: Acute SC Lovenox. Subjective Interval history since last seen: 57-year-old woman with past medical history significant for ongoing tobacco use and likely underlying COPD, referred for admission from [facility] emergency department for a likely bronchitis with COPD exacerbation. Mrs. Cline is a prior medical history significant for likely COPD and ongoing tobacco abuse. She also has a prior history of gastric ulcers, depression and anxiety, and chronic lower back pain. Hypertension and dyslipidemia are also listed as her past medical history, as is osteoarthritis. She was previously incarcerated due to narcotic abuse and distribution, as well as noted sedative drug abuse as well. Patient reported onset of dyspnea on the day prior to her admission, prompting an ED visit. At that time her lab work was unremarkable, she was afebrile and non-hypoxic, and her imaging with a chest x-ray showed no infiltrate. She was initiated on oral doxycycline and prednisone, and discharged home. However she returned the next day with worsening of her symptoms, including noted hypoxia and tachycardia, albeit still afebrile. Repeat imaging of the chest showed no evidence of infiltrate. Given her ongoing hypoxia and tachycardia she was referred for admission for further evaluation and treatment. The patient has been maintained on IV steroids, frequent duonebs, supplemental oxygen, and antibiotic therapy. She reports some improvement in her symptoms, but not yet at her baseline. She is still requiring supplemental O2 as well. No overnight events reported. She remains afebrile. Exam Narrative Exam Narrative: General: Patient appears comfortable, AAOX3, NAD Neck: Supple CV: Regular, tachycardic, S1S2, No rubs, murmurs, or gallops. Pulmonary: Ddecreased breath sounds diffusely with trace wheezing, improved, with no crackles or rhonchi Abdomen: + Bowel Sounds, soft, nontender, nondistended, obese in contour Vascular: No lower extremity edema Psych: Normal mood and affect. Objective Objective Clinical Data: Abnormal lab results 08/18/18 08/18/18 Range/Units 06:24 06:24 MCHC 31.9 L (32.0-36.0) g/dL Absolute Neutrophils 7.38 H (1.2-6.7) k/cumm Absolute Lymphocytes 0.42 L (1.2-3.4) k/cumm Anion Gap 12.5 H (3-11) mmol/L Glucose 171 H (70-100) mg/dL Vital Signs Temperature 37.5 C 08/18/18 16:21 Temperature Source Tympanic 08/18/18 16:21 Pulse 115 H 08/18/18 16:21 Pulse Rhythm Regular 08/18/18 08:40 Pulse 109 H 08/17/18 19:00 Respiratory Rate 22 08/18/18 16:21 Respiratory Effort 08/18/18 08:40 Respiratory Depth Normal 08/18/18 08:40 Respiratory Pattern Normal 08/18/18 08:40 Blood Pressure 136/81 08/18/18 16:21 Blood Pressure Mean 101 08/17/18 18:45 Blood Pressure Position Sitting 08/17/18 12:21 Pulse Oximetry 93 L 08/18/18 16:21 Oxygen Delivery Method Nasal Cannula 08/18/18 16:21 Oxygen Flow Rate 6 08/18/18 16:21 Pain Level 0 08/18/18 16:21 Intake & Output 08/17/18 08/18/18 08/18/18 23:59 11:59 23:59 Intake Total 1920 / 1920 271 / 631 360 / 631 Output Total 2150 / 2150 600 / 600 Balance -230 / -230 - / 31 31 Weight 117.934 kg Intake: IV 1170 / 1170 31 / 151 120 / 151 Oral 750 / 750 240 / 480 240 / 480 Output: Urine 2150 / 2150 600 / 600 Other: Urine Color Yellow Yellow Urine Appearance Clear Clear Urine Odor Normal Normal Comment Pt voiding in bsc independently. Voiding Methods Bedside Commode Bedside Commode Laboratory Results WBC 7.95 k/cumm (4.4-10.8) 08/18/18 06:24 RBC 4.97 m/cumm (4.00-5.20) 08/18/18 06:24 Hgb 14.5 g/dL (12.0-15.5) 08/18/18 06:24 Hct 45.4 % (36.0-46.0) 08/18/18 06:24 MCV 91.3 fL (80-95) 08/18/18 06:24 MCH 29.2 pg (27.0-33.0) 08/18/18 06:24 MCHC 31.9 g/dL (32.0-36.0) L 08/18/18 06:24 RDW 13.3 % (11.7-14.6) 08/18/18 06:24 Plt Count 284 x1000/uL (130-400) 08/18/18 06:24 MPV 9.9 fL (8.0-11.0) 08/18/18 06:24 Immature Gran % 0.1 08/18/18 06:24 Neutrophils % 92.9 08/18/18 06:24 Lymphocytes % 5.3 08/18/18 06:24 Monocytes % 1.6 08/18/18 06:24 Eosinophils % 0.0 08/18/18 06:24 Basophils % 0.1 08/18/18 06:24 Absolute Neutrophils 7.38 k/cumm (1.2-6.7) H 08/18/18 06:24 Absolute Lymphocytes 0.42 k/cumm (1.2-3.4) L 08/18/18 06:24 Absolute Monocytes 0.13 k/cumm (0.11-0.7) 08/18/18 06:24 Absolute Eosinophils 0.00 k/cumm (0.0-0.7) 08/18/18 06:24 Absolute Basophils 0.01 k/cumm (0.0-0.2) 08/18/18 06:24 Sodium 140 mmol/L (136-145) 08/18/18 06:24 Potassium 3.8 mmol/L (3.5-5.1) 08/18/18 06:24 Chloride 100 mmol/L (98-107) 08/18/18 06:24 Carbon Dioxide 27.5 mmol/L (21.0-32.0) 08/18/18 06:24 Anion Gap 12.5 mmol/L (3-11) H 08/18/18 06:24 BUN 12 mg/dL (7-18) 08/18/18 06:24 Creatinine 0.75 mg/dL (0.55-1.02) 08/18/18 06:24 Estimated GFR/1.73 m2 >= 60.00 (mL/min/1.73m2) 08/18/18 06:24 Glucose 171 mg/dL (70-100) H 08/18/18 06:24 Lactate 1.0 mmol/L (0.6-1.4) 08/17/18 16:05 Calcium 10.1 mg/dL (8.5-10.1) 08/18/18 06:24 Magnesium 2.0 mg/dL (1.8-2.4) 08/18/18 06:24 Total Bilirubin 0.3 mg/dL (0.2-1.0) 08/17/18 13:00 AST 20 U/L (15-37) 08/17/18 13:00 ALT 33 U/L (12-78) 08/17/18 13:00 Alkaline Phosphatase 107 U/L (46-116) 08/17/18 13:00 Total Protein 7.8 g/dL (6.4-8.2) 08/17/18 13:00 Albumin 3.7 g/dL (3.4-5.0) 08/17/18 13:00
[2018-08-18] MEDS: Doxepin 50 MG CAP 200 MG PO (21:42)
[2018-08-18] MEDS: Enoxaparin 40 MG/0.4 ML SYR SC (21:42)
[2018-08-18] MEDS: Pantoprazole 40 MG VIAL IVP (21:43)
[2018-08-19] MEDS: Acetaminophen 325 MG TAB PO (02:01)
[2018-08-19 02:23] VITALS: BP 136/82; PULSE 102; RESP 20; TEMP 36.5; O2SAT 93
[2018-08-19] MEDS: methylPREDNISolone SUCC 125 MG VIAL 60 MG IVP ×3 (04:07→19:39)
[2018-08-19] MEDS: Normal Saline Flush 10 ML SYR IVP ×6 (04:08→21:17)
[2018-08-19 07:00] VITALS: BP 139/88; PULSE 92; RESP 18; TEMP 37.2; O2SAT 92
[2018-08-19 07:16] LABS: Abs Immature Grans 0.04 k/cumm (0.0-0.09); Absolute Basophil Count 0.01 k/cumm (0.0-0.2); Absolute Lymphocyte Count 1.04 k/cumm (1.2-3.4); Absolute Monocyte Count 0.43 k/cumm (0.11-0.7); Basophils % 0.1; HCT 45.1 % (36.0-46.0); HGB 14.5 g/dL (12.0-15.5); Immature Grans % 0.4; Lymphocytes % 9.1; Mean Corp. HGB Concentration 32.2 g/dL (32.0-36.0); Mean Corpuscular Hemoglobin 29.5 pg (27.0-33.0); Mean Corpuscular Volume 91.7 fL (80-95); Mean Platelet Volume 9.6 fL (8.0-11.0); Monocytes % 3.8; Neutrophils % 86.6; Platelet Count 316 x1000/uL (130-400); RBC 4.92 m/cumm (4.00-5.20); RBC Distribution Width 13.3 % (11.7-14.6); White Blood Cell Count 11.41 k/cumm (4.4-10.8)
[2018-08-19 07:26] LABS: Absolute Neutrophil Count 9.88 k/cumm (1.2-6.7)
[2018-08-19 07:31] LABS: Anion Gap 8.3 mmol/L (3-11); BUN 20 mg/dL (7-18); CO2 29.7 mmol/L (21.0-32.0); CREATININE 0.75 mg/dL (0.55-1.02); Calcium 10.1 mg/dL (8.5-10.1); Chloride 100 mmol/L (98-107); Glucose 129 mg/dL (70-100); Magnesium 2.2 mg/dL (1.8-2.4); Potassium 4.5 mmol/L (3.5-5.1); Sodium 138 mmol/L (136-145)
[2018-08-19] MEDS: Simvastatin 20 MG TAB PO (07:45)
[2018-08-19] MEDS: Lisinopril 10 MG TAB PO (07:45)
[2018-08-19] MEDS: ARIPiprazole 15 MG TAB 30 MG PO (07:45)
[2018-08-19] MEDS: Albuterol/Ipratropium 3 ML UPD VIAL UPD (07:47)
[2018-08-19] MEDS: Nystatin POWDER 60 GM JAR TP ×2 (07:50→20:38)
[2018-08-19] MEDS: guaiFENesin/D-METHORPHAN HB 5 ML CUP 10 ML PO ×3 (10:30→19:39)
[2018-08-19] MEDS: Budesonide 0.5 MG/2 ML UPD VIAL UPD ×2 (10:30→21:18)
--- NOTE | 2018-08-19 11:47 | PDOC.CMPRO ---
- If Service Date Differs Date of service: 08/19/18 Time of Service: 11:47 Care Management Progress Note S/O: Chapis is sitting up in her bed when this writer producer visits this morning. She continues to cough throughout discussion, though states that she is hopeful that she is getting better. CM reviewed DC plan with Chapis which remains unchanged at this time. A: 57 y/o female admitted 08/17/18 for COPD Exacerbation, Bronchitis P: Chapis will return home with no anticipated services. She will F/U with PCP and plan of care as prescribed. Chapis's mother Cherelle to transport when ready.
[2018-08-19 16:13] VITALS: BP 131/86; PULSE 98; RESP 18; TEMP 36.8; O2SAT 93
[2018-08-19] MEDS: LEVOFLOXACIN 500 MG/100 ML BAG 100 MG IVPB (16:24)
[2018-08-19] MEDS: Benzonatate 200 MG CAP PO (19:39)
--- NOTE | 2018-08-19 20:09 | PGE_ITS ---
Date of Service Date of service: 08/19/18 Time of Service: 20:06 Assessment and Plan (1) COPD (chronic obstructive pulmonary disease): Current visit: Yes Status: Chronic With apparent acute exacerbation, with noted change in cough and sputum production. Repeat chest x-ray at time of admission again negative for infiltrate. Continue IV Solu-Medrol and aggressive nebulizer therapy. Given change in cough and sputum production will also benefit from antibiotic therapy - received high- dose Levaquin in the ED. Will continue 500 mg of daily levofloxacin starting today, day #3. Continue supplemental oxygen and wean as able. (2) Tobacco use disorder: Current visit: Yes Status: Chronic Encourage cessation and maintain on nicotine replacement therapy while hospitalized. (3) Hyperthyroidism: Current visit: Yes Status: Resolved History of hyperthyroidism that appears resolved. Patient is not on replacement therapy. Repeat TSH is normal despite acute illness. (4) Gastric ulcer: Current visit: Yes Status: Chronic History of gastric ulcers, not on PPI therapy. Given need for steroids will continue IV Protonix. (5) DVT prophylaxis: Current visit: Yes Status: Acute SC Lovenox. Subjective Interval history since last seen: 57-year-old woman with past medical history significant for ongoing tobacco use and likely underlying COPD, referred for admission from [facility] emergency department for a likely bronchitis with acute COPD exacerbation. Mrs. Cline has a prior medical history significant for likely COPD that is undiagnosed, and ongoing tobacco abuse. She also has a prior history of gastric ulcers, depression and anxiety, and chronic lower back pain. Hypertension and dyslipidemia are also listed as her past medical history, as is osteoarthritis. She was previously incarcerated due to narcotic distribution, as well as noted sedative drug abuse. Patient reported onset of dyspnea on the day prior to her admission, prompting an ED visit. At that time her lab work was unremarkable, she was afebrile and non-hypoxic, and her imaging with a chest x-ray showed no infiltrate. She was initiated on oral doxycycline and prednisone, and discharged home. However she returned the next day with worsening of her symptoms, including noted hypoxia and tachycardia, albeit still afebrile. Repeat imaging of the chest showed no evidence of infiltrate. Given her ongoing hypoxia and tachycardia she was referred for admission for further evaluation and treatment. The patient has been maintained on IV steroids, frequent duonebs, supplemental oxygen, and antibiotic therapy. She reports continued improvement in her symptoms, but not yet at her baseline. She is still requiring supplemental O2 as well. No overnight events reported. She remains afebrile. Exam Narrative Exam Narrative: General: Patient appears comfortable, AAOX3, NAD Neck: Supple CV: Regular, tachycardic, S1S2, No rubs, murmurs, or gallops. Pulmonary: Ddecreased breath sounds diffusely with trace wheezing, improved air entry, with no crackles or rhonchi Abdomen: + Bowel Sounds, soft, nontender, nondistended, obese in contour Vascular: No lower extremity edema Psych: Normal mood and affect. Objective Objective Clinical Data: Abnormal lab results 08/19/18 08/19/18 Range/Units 06:50 06:50 WBC 11.41 H D (4.4-10.8) k/cumm Absolute Neutrophils 9.88 H (1.2-6.7) k/cumm Absolute Lymphocytes 1.04 L (1.2-3.4) k/cumm BUN 20 H D (7-18) mg/dL Glucose 129 H (70-100) mg/dL Vital Signs Temperature 36.8 C 08/19/18 16:13 Temperature Source Tympanic 08/19/18 16:13 Pulse 98 H 08/19/18 16:13 Pulse Rhythm Regular 08/19/18 07:45 Pulse 109 H 08/17/18 19:00 Respiratory Rate 18 08/19/18 16:13 Respiratory Effort 08/19/18 07:45 Respiratory Depth Normal 08/19/18 07:45 Respiratory Pattern Normal 08/19/18 07:45 Blood Pressure 131/86 08/19/18 16:13 Blood Pressure Mean 101 08/17/18 18:45 Blood Pressure Position Sitting 08/17/18 12:21 Pulse Oximetry 93 L 08/19/18 16:13 Oxygen Delivery Method Nasal Cannula 08/19/18 16:13 Oxygen Flow Rate 6 08/19/18 16:13 Pain Level 0 08/19/18 07:00 Intake & Output 08/18/18 08/19/18 08/19/18 23:59 11:59 23:59 Intake Total 600 / 871 700 / 1520 820 / 1520 Output Total 1500 / 1500 Balance 600 / 271 -800 / 20 820 / 20 Intake: IV 120 / 151 130 / 130 Oral 480 / 720 700 / 1390 690 / 1390 Output: Urine 1500 / 1500 Other: Urine Color Yellow Urine Appearance Clear Urine Odor Normal Comment Pt voiding in bsc independently. Voiding Methods Bedside Commode Laboratory Results WBC 11.41 k/cumm (4.4-10.8) H D 08/19/18 06:50 RBC 4.92 m/cumm (4.00-5.20) 08/19/18 06:50 Hgb 14.5 g/dL (12.0-15.5) 08/19/18 06:50 Hct 45.1 % (36.0-46.0) 08/19/18 06:50 MCV 91.7 fL (80-95) 08/19/18 06:50 MCH 29.5 pg (27.0-33.0) 08/19/18 06:50 MCHC 32.2 g/dL (32.0-36.0) 08/19/18 06:50 RDW 13.3 % (11.7-14.6) 08/19/18 06:50 Plt Count 316 x1000/uL (130-400) 08/19/18 06:50 MPV 9.6 fL (8.0-11.0) 08/19/18 06:50 Immature Gran % 0.4 08/19/18 06:50 Neutrophils % 86.6 08/19/18 06:50 Lymphocytes % 9.1 08/19/18 06:50 Monocytes % 3.8 08/19/18 06:50 Eosinophils % 0.0 08/19/18 06:50 Basophils % 0.1 08/19/18 06:50 Absolute Neutrophils 9.88 k/cumm (1.2-6.7) H 08/19/18 06:50 Absolute Lymphocytes 1.04 k/cumm (1.2-3.4) L 08/19/18 06:50 Absolute Monocytes 0.43 k/cumm (0.11-0.7) 08/19/18 06:50 Absolute Eosinophils 0.00 k/cumm (0.0-0.7) 08/19/18 06:50 Absolute Basophils 0.01 k/cumm (0.0-0.2) 08/19/18 06:50 Sodium 138 mmol/L (136-145) 08/19/18 06:50 Potassium 4.5 mmol/L (3.5-5.1) 08/19/18 06:50 Chloride 100 mmol/L (98-107) 08/19/18 06:50 Carbon Dioxide 29.7 mmol/L (21.0-32.0) 08/19/18 06:50 Anion Gap 8.3 mmol/L (3-11) 08/19/18 06:50 BUN 20 mg/dL (7-18) H D 08/19/18 06:50 Creatinine 0.75 mg/dL (0.55-1.02) 08/19/18 06:50 Estimated GFR/1.73 m2 >= 60.00 (mL/min/1.73m2) 08/19/18 06:50 Glucose 129 mg/dL (70-100) H 08/19/18 06:50 Lactate 1.0 mmol/L (0.6-1.4) 08/17/18 16:05 Calcium 10.1 mg/dL (8.5-10.1) 08/19/18 06:50 Magnesium 2.2 mg/dL (1.8-2.4) 08/19/18 06:50 Total Bilirubin 0.3 mg/dL (0.2-1.0) 08/17/18 13:00 AST 20 U/L (15-37) 08/17/18 13:00 ALT 33 U/L (12-78) 08/17/18 13:00 Alkaline Phosphatase 107 U/L (46-116) 08/17/18 13:00 Total Protein 7.8 g/dL (6.4-8.2) 08/17/18 13:00 Albumin 3.7 g/dL (3.4-5.0) 08/17/18 13:00
[2018-08-19 20:40] VITALS: BP 130/77; PULSE 109; RESP 20; TEMP 37.1; O2SAT 95
[2018-08-19] MEDS: Doxepin 50 MG CAP 200 MG PO (21:18)
[2018-08-19] MEDS: Pantoprazole 40 MG VIAL IVP (21:18)
[2018-08-19] MEDS: Enoxaparin 40 MG/0.4 ML SYR SC (21:18)
[2018-08-20] VITALS (10 sets, daily range): BP systolic 119–138; BP diastolic 73–95; PULSE 90–107; RESP 17–20; TEMP 36.3–36.9; O2SAT 91–94
[2018-08-20] MEDS: Normal Saline Flush 10 ML SYR IVP ×5 (04:08→21:50)
[2018-08-20] MEDS: methylPREDNISolone SUCC 125 MG VIAL 60 MG IVP ×2 (04:08→11:46)
[2018-08-20 07:18] LABS: HCT 45.2 % (36.0-46.0); HGB 14.4 g/dL (12.0-15.5); Mean Corp. HGB Concentration 31.9 g/dL (32.0-36.0); Mean Corpuscular Hemoglobin 29.2 pg (27.0-33.0); Mean Corpuscular Volume 91.7 fL (80-95); Mean Platelet Volume 9.8 fL (8.0-11.0); Platelet Count 303 x1000/uL (130-400); RBC 4.93 m/cumm (4.00-5.20); White Blood Cell Count 11.57 k/cumm (4.4-10.8)
[2018-08-20 07:32] LABS: Anion Gap 5.5 mmol/L (3-11); BUN 26 mg/dL (7-18); CO2 31.5 mmol/L (21.0-32.0); CREATININE 0.66 mg/dL (0.55-1.02); Calcium 9.9 mg/dL (8.5-10.1); Chloride 98 mmol/L (98-107); Glucose 143 mg/dL (70-100); Magnesium 2.3 mg/dL (1.8-2.4); Potassium 4.2 mmol/L (3.5-5.1); Sodium 135 mmol/L (136-145)
[2018-08-20 08:02] LABS: Absolute Lymphocyte Count 2.08 k/cumm (1.2-3.4); Absolute Monocyte Count 0.35 k/cumm (0.11-0.7); Absolute Neutrophil Count 9.14 k/cumm (1.2-6.7); Atypical Lymphocytes % 5; Diff Comment Manual Differential; RBC Morphology Normal
[2018-08-20] MEDS: ARIPiprazole 15 MG TAB 30 MG PO (08:16)
[2018-08-20] MEDS: Lisinopril 10 MG TAB PO (08:17)
[2018-08-20] MEDS: Benzonatate 200 MG CAP PO (08:17)
[2018-08-20] MEDS: Simvastatin 20 MG TAB PO (08:17)
[2018-08-20] MEDS: Nystatin POWDER 60 GM JAR TP ×2 (08:19→21:51)
[2018-08-20] MEDS: Budesonide 0.5 MG/2 ML UPD VIAL UPD ×2 (09:46→21:50)
[2018-08-20] MEDS: guaiFENesin/D-METHORPHAN HB 5 ML CUP 10 ML PO ×2 (10:01→17:05)
--- NOTE | 2018-08-20 14:02 | PDOC.CMPRO ---
- If Service Date Differs Date of service: 08/20/18 Time of Service: 14:02 Care Management Progress Note S/O:Chapis is sitting on the edge of her bed this morning, she reports starting to feel better at this time, and coughing less throughout the day today. Chapis remains on IV steroids and IV antibiotics at this time. CM reviewed DC plan with Chapis which remains unchanged at this time. A: 57 y/o female admitted 08/17/18 for COPD Exacerbation, Bronchitis P: Chapis will return home with no anticipated services. She will F/U with PCP and plan of care as prescribed. Chapis's mother Cherelle to transport when ready.
--- NOTE | 2018-08-20 15:32 | CHAPLAIN ---
Chapis said is feeling better. She lives with her mom who is home sick, Chapis said. A friend of Chapis's has visited her here.
--- NOTE | 2018-08-20 16:41 | W.PM.PROGNOT ---
Date of Service Date of service: 08/20/18 Time of Service: 16:41 Assessment and Plan (1) COPD (chronic obstructive pulmonary disease): Current visit: Yes Status: Chronic With apparent acute exacerbation, with noted change in cough and sputum production. Repeat chest x-ray at time of admission again negative for infiltrate. Continue IV Solu-Medrol and aggressive nebulizer therapy - begin weaning steroids tody. Given change in cough and sputum production will also benefit from antibiotic therapy - received high- dose Levaquin in the ED. Will continue 500 mg of daily levofloxacin starting today, day #4. Continue supplemental oxygen and wean as able. (2) Tobacco use disorder: Current visit: Yes Status: Chronic Encourage cessation and maintain on nicotine replacement therapy while hospitalized. (3) Hyperthyroidism: Current visit: Yes Status: Resolved History of hyperthyroidism that appears resolved. Patient is not on replacement therapy. Repeat TSH is normal despite acute illness. (4) Gastric ulcer: Current visit: Yes Status: Chronic History of gastric ulcers, not on PPI therapy. Given need for steroids will continue IV Protonix. (5) DVT prophylaxis: Current visit: Yes Status: Acute SC Lovenox. Subjective Interval history since last seen: 57-year-old woman with past medical history significant for ongoing tobacco use and likely underlying COPD, referred for admission from [facility] emergency department for a likely bronchitis with acute COPD exacerbation. Mrs. Cline has a prior medical history significant for likely COPD that is undiagnosed, and ongoing tobacco abuse. She also has a prior history of gastric ulcers, depression and anxiety, and chronic lower back pain. Hypertension and dyslipidemia are also listed as her past medical history, as is osteoarthritis. She was previously incarcerated due to narcotic distribution, as well as noted sedative drug abuse. Patient reported onset of dyspnea on the day prior to her admission, prompting an ED visit. At that time her lab work was unremarkable, she was afebrile and non-hypoxic, and her imaging with a chest x-ray showed no infiltrate. She was initiated on oral doxycycline and prednisone, and discharged home. However she returned the next day with worsening of her symptoms, including noted hypoxia and tachycardia, albeit still afebrile. Repeat imaging of the chest showed no evidence of infiltrate. Given her ongoing hypoxia and tachycardia she was referred for admission for further evaluation and treatment. The patient has been maintained on IV steroids, frequent duonebs, supplemental oxygen, and antibiotic therapy without titration so far. She reports continued improvement in her symptoms today, but still not at her baseline. She is still requiring supplemental O2 as well. No overnight events reported. She remains afebrile. Exam Narrative Exam Narrative: General: Patient appears comfortable, AAOX3, NAD Neck: Supple CV: Regular, tachycardic, S1S2, No rubs, murmurs, or gallops. Pulmonary: Improved breath sounds, still decreased but with improved air entry. Improved wheezing, with no crackles or rhonchi Abdomen: + Bowel Sounds, soft, nontender, nondistended, obese in contour Vascular: No lower extremity edema Psych: Normal mood and affect. Objective Objective Clinical Data: Abnormal lab results 08/20/18 08/20/18 Range/Units 06:35 06:35 WBC 11.57 H (4.4-10.8) k/cumm MCHC 31.9 L (32.0-36.0) g/dL Absolute Neutrophils 9.14 H (1.2-6.7) k/cumm Sodium 135 L (136-145) mmol/L BUN 26 H (7-18) mg/dL Glucose 143 H (70-100) mg/dL Vital Signs Temperature 36.9 C 08/20/18 16:22 Temperature Source Tympanic 08/20/18 16:22 Pulse 107 H 08/20/18 16:22 Pulse Rhythm Regular 08/20/18 08:10 Pulse 109 H 08/17/18 19:00 Respiratory Rate 19 08/20/18 16:22 Respiratory Effort Short of Breath 08/20/18 08:10 Respiratory Depth Normal 08/20/18 08:10 Respiratory Pattern Normal 08/20/18 08:10 Blood Pressure 119/73 08/20/18 16:22 Blood Pressure Mean 101 08/17/18 18:45 Blood Pressure Position Sitting 08/17/18 12:21 Pulse Oximetry 91 L 08/20/18 16:22 Oxygen Delivery Method Nasal Cannula 08/20/18 16:22 Oxygen Flow Rate 2 08/20/18 16:22 Pain Level 0 08/19/18 07:00 Comment 08/20/18 12:53 Intake & Output 08/19/18 08/20/18 08/20/18 23:59 11:59 23:59 Intake Total 950 / 1650 660 / 1690 1030 / 1690 Output Total 900 / 2150 1250 / 2150 Balance 950 / 150 -240 / -460 -220 / -460 Intake: IV 140 / 140 20 / 20 Oral 810 / 1510 640 / 1670 1030 / 1670 Output: Urine 900 / 2150 1250 / 2150 Other: Urine Color Light [place] Yellow Urine Appearance Clear Clear Urine Odor None Normal Comment pt gets up AD EKANU to void. Voiding Methods Bedside Commode Bedside Commode Bedside Commode Laboratory Results WBC 11.57 k/cumm (4.4-10.8) H 08/20/18 06:35 RBC 4.93 m/cumm (4.00-5.20) 08/20/18 06:35 Hgb 14.4 g/dL (12.0-15.5) 08/20/18 06:35 Hct 45.2 % (36.0-46.0) 08/20/18 06:35 MCV 91.7 fL (80-95) 08/20/18 06:35 MCH 29.2 pg (27.0-33.0) 08/20/18 06:35 MCHC 31.9 g/dL (32.0-36.0) L 08/20/18 06:35 RDW 13.0 % (11.7-14.6) 08/20/18 06:35 Plt Count 303 x1000/uL (130-400) 08/20/18 06:35 MPV 9.8 fL (8.0-11.0) 08/20/18 06:35 Immature Gran % 0.0 08/20/18 06:35 Neutrophils % 79.0 08/20/18 06:35 Lymphocytes % 13.0 08/20/18 06:35 Monocytes % 3.0 08/20/18 06:35 Eosinophils % 0.0 08/20/18 06:35 Basophils % 0.0 08/20/18 06:35 Absolute Neutrophils 9.14 k/cumm (1.2-6.7) H 08/20/18 06:35 Absolute Lymphocytes 2.08 k/cumm (1.2-3.4) 08/20/18 06:35 Absolute Monocytes 0.35 k/cumm (0.11-0.7) 08/20/18 06:35 Absolute Eosinophils 0.00 k/cumm (0.0-0.7) 08/20/18 06:35 Absolute Basophils 0.00 k/cumm (0.0-0.2) 08/20/18 06:35 Differential Comment Manual differential 08/20/18 06:35 Atypical Lymphocytes 5 08/20/18 06:35 RBC Morphology Normal 08/20/18 06:35 Sodium 135 mmol/L (136-145) L 08/20/18 06:35 Potassium 4.2 mmol/L (3.5-5.1) 08/20/18 06:35 Chloride 98 mmol/L (98-107) 08/20/18 06:35 Carbon Dioxide 31.5 mmol/L (21.0-32.0) 08/20/18 06:35 Anion Gap 5.5 mmol/L (3-11) 08/20/18 06:35 BUN 26 mg/dL (7-18) H 08/20/18 06:35 Creatinine 0.66 mg/dL (0.55-1.02) 08/20/18 06:35 Estimated GFR/1.73 m2 >= 60.00 (mL/min/1.73m2) 08/20/18 06:35 Glucose 143 mg/dL (70-100) H 08/20/18 06:35 Lactate 1.0 mmol/L (0.6-1.4) 08/17/18 16:05 Calcium 9.9 mg/dL (8.5-10.1) 08/20/18 06:35 Magnesium 2.3 mg/dL (1.8-2.4) 08/20/18 06:35 Total Bilirubin 0.3 mg/dL (0.2-1.0) 08/17/18 13:00 AST 20 U/L (15-37) 08/17/18 13:00 ALT 33 U/L (12-78) 08/17/18 13:00 Alkaline Phosphatase 107 U/L (46-116) 08/17/18 13:00 Total Protein 7.8 g/dL (6.4-8.2) 08/17/18 13:00 Albumin 3.7 g/dL (3.4-5.0) 08/17/18 13:00
[2018-08-20] MEDS: LEVOFLOXACIN 500 MG/100 ML BAG 100 MG IVPB (16:45)
[2018-08-20] MEDS: Pantoprazole 40 MG VIAL IVP (21:49)
[2018-08-20] MEDS: methylPREDNISolone SUCC 40 MG VIAL IVP (21:49)
[2018-08-20] MEDS: Doxepin 50 MG CAP 200 MG PO (21:50)
[2018-08-20] MEDS: Enoxaparin 40 MG/0.4 ML SYR SC (21:50)
[2018-08-21] VITALS (10 sets, daily range): BP systolic 132–135; BP diastolic 81–88; PULSE 86–109; RESP 1–19; TEMP 36.7–37.2; O2SAT 85–93
[2018-08-21] MEDS: guaiFENesin/D-METHORPHAN HB 5 ML CUP 10 ML PO ×3 (02:05→17:30)
[2018-08-21] MEDS: Normal Saline Flush 10 ML SYR IVP ×4 (04:39→21:46)
[2018-08-21] MEDS: methylPREDNISolone SUCC 40 MG VIAL IVP ×2 (04:39→16:45)
[2018-08-21] MEDS: Docusate Sodium 100 MG CAP PO (04:47)
[2018-08-21] MEDS: Albuterol/Ipratropium 3 ML UPD VIAL UPD ×3 (07:48→18:18)
[2018-08-21] MEDS: Lisinopril 10 MG TAB PO (09:10)
[2018-08-21] MEDS: Simvastatin 20 MG TAB PO (09:13)
[2018-08-21] MEDS: ARIPiprazole 15 MG TAB 30 MG PO (09:13)
[2018-08-21] MEDS: Nystatin POWDER 60 GM JAR TP ×2 (09:14→19:45)
--- NOTE | 2018-08-21 10:31 | PDOC.CMPRO ---
- If Service Date Differs Date of service: 08/21/18 Time of Service: 10:31 Care Management Progress Note S/O: Chapis is sitting on the sitting on the edge of her bed when CM visits this morning. She is engaged in conversation, makes good eye contact, and is talkative. She continues to receive supplemental O2 via [place] (2 L) and reports that while she is feeling a little better she does not feel ready to return home. Discussion has ensued with MD regarding Chapis remaining at the hospital to wean from O2 requirements (she remains on 2 L via [facility] at this time) vs. returning home today with supplemental O2 services through [employer] or [employer]. Chapis reports that her mother, whom she lives with, is sick and she feels she would benefit from another night. Chapis reports that she has a friend in [facility], Maryjane, who is quite busy but could support her during her recovery if needed. Her mother, as she is sick, will not be able to assist her, per patient. A: 57 y/o female admitted 08/17/18 for COPD Exacerbation, Bronchitis P: Chapis will return home when medically ready per MD. Anticipate patient will discharge with no services and follow up with her PCP. Chapis will transport via private vehicle with her mother or friend, Maryjane. CM will continue to offer support to patient and care team regarding discharge planning and disposition.
--- NOTE | 2018-08-21 10:42 | CMPROGNOTE_ITS ---
- If Service Date Differs Date of service: 08/21/18 Time of Service: 10:31 Care Management Progress Note S/O: Chapis is sitting on the sitting on the edge of her bed when CM visits this morning. She is engaged in conversation, makes good eye contact, and is talkative. She continues to receive supplemental O2 via [facility] (2 L) and reports that while she is feeling a little better she does not feel ready to return home. Discussion has ensued with MD regarding Chapis remaining at the hospital to wean from O2 requirements (she remains on 2 L via [facility] at this time) vs. returning home today with supplemental O2 services through [employer] or [employer]. Chapis reports that her mother, whom she lives with, is sick and she feels she would benefit from another night. Chapis reports that she has a friend in [facility], Maryjane, who is quite busy but could support her during her recovery if needed. Her mother, as she is sick, will not be able to assist her, per patient. A: 57 y/o female admitted 08/17/18 for COPD Exacerbation, Bronchitis P: Chapis will return home when medically ready per MD. Anticipate patient will discharge with no services and follow up with her PCP. Chapis will transport via private vehicle with her mother or friend, Maryjane. CM will continue to offer support to patient and care team regarding discharge planning and disposition.
--- NOTE | 2018-08-21 12:48 | PGE_ITS ---
Date of Service Date of service: 08/21/18 Time of Service: 12:44 Assessment and Plan (1) COPD (chronic obstructive pulmonary disease): Current visit: Yes Status: Chronic With apparent acute exacerbation, with noted change in cough and sputum production. Repeat chest x-ray at time of admission again negative for infiltrate. Continue IV Solu-Medrol and aggressive nebulizer therapy - continue weaning steroids today. Given change in cough and sputum production will also benefit from antibiotic therapy - received high- dose Levaquin in the ED. Will continue 500 mg of daily levofloxacin starting today, day #5. Continue supplemental oxygen and wean as able - currently down to 2L. (2) Tobacco use disorder: Current visit: Yes Status: Chronic Encourage cessation and maintain on nicotine replacement therapy while hospitalized. (3) Hyperthyroidism: Current visit: Yes Status: Resolved History of hyperthyroidism that appears resolved. Patient is not on replacement therapy. Repeat TSH is normal despite acute illness. (4) Gastric ulcer: Current visit: Yes Status: Chronic History of gastric ulcers, not on PPI therapy. Given need for steroids will continue IV Protonix. (5) DVT prophylaxis: Current visit: Yes Status: Acute SC Lovenox. Subjective Interval history since last seen: 57-year-old woman with past medical history significant for ongoing tobacco use and likely underlying COPD, referred for admission from [facility] emergency department for a likely bronchitis with acute COPD exacerbation. Mrs. Cline has a prior medical history significant for likely COPD that is undiagnosed, and ongoing tobacco abuse. She also has a prior history of gastric ulcers, depression and anxiety, and chronic lower back pain. Hypertension and dyslipidemia are also listed as her past medical history, as is osteoarthritis. She was previously incarcerated due to narcotic distribution, as well as noted sedative drug abuse. Patient reported onset of dyspnea on the day prior to her admission, prompting an ED visit. At that time her lab work was unremarkable, she was afebrile and non-hypoxic, and her imaging with a chest x-ray showed no infiltrate. She was initiated on oral doxycycline and prednisone, and discharged home. However she returned the next day with worsening of her symptoms, including noted hypoxia and tachycardia, albeit still afebrile. Repeat imaging of the chest showed no evidence of infiltrate. Given her ongoing hypoxia and tachycardia she was referred for admission for further evaluation and treatment. The patient has been maintained on IV steroids, frequent duonebs, supplemental oxygen, and antibiotic therapy. She reports continued improvement in her symptoms today, and is now ambulating with supplemental O2. Her oxygen demand has decreased from 6L down to 2, and she has an improved pulmonary exam - still not at her baseline. No overnight events reported. She remains afebrile. Exam Narrative Exam Narrative: General: Patient appears comfortable, AAOX3, NAD Neck: Supple CV: Regular, tachycardic, S1S2, No rubs, murmurs, or gallops. Pulmonary: Improved breath sounds, with vastly improved air entry. Improved wheezing - now minimal, with no crackles or rhonchi Abdomen: + Bowel Sounds, soft, nontender, nondistended, obese in contour Vascular: No lower extremity edema Psych: Normal mood and affect. Objective Objective Clinical Data: Vital Signs Temperature 36.7 C 08/21/18 07:55 Temperature Source Tympanic 08/21/18 07:55 Pulse 86 08/21/18 07:55 Pulse Rhythm Regular 08/21/18 07:55 Pulse 109 H 08/17/18 19:00 Respiratory Rate 19 08/21/18 07:55 Respiratory Effort Non-Labored 08/21/18 07:55 Respiratory Depth Normal 08/21/18 07:55 Respiratory Pattern Normal 08/21/18 07:55 Blood Pressure 135/88 08/21/18 07:55 Blood Pressure Mean 101 08/17/18 18:45 Blood Pressure Position Sitting 08/17/18 12:21 Pulse Oximetry 91 L 08/21/18 07:55 Oxygen Delivery Method Nasal Cannula 08/21/18 07:55 Oxygen Flow Rate 2 08/21/18 07:55 Pain Level 0 08/21/18 07:55 Comment 08/20/18 12:53 Intake & Output 08/20/18 08/21/18 08/21/18 23:59 11:59 23:59 Intake Total 1030 / 1690 1200 / 1200 Output Total 1850 / 2750 1600 / 1600 Balance -820 / -1060 -400 / -400 Intake: IV 160 / 160 Oral 1030 / 1670 1040 / 1040 Output: Urine 1850 / 2750 1600 / 1600 Other: Urine Color Yellow Straw Urine Appearance Clear Clear Urine Odor Normal None Comment voided into toilet when had BM Stool Size Large Stool Characteristics Formed Brown Voiding Methods Toilet Toilet Laboratory Results WBC 11.57 k/cumm (4.4-10.8) H 08/20/18 06:35 RBC 4.93 m/cumm (4.00-5.20) 08/20/18 06:35 Hgb 14.4 g/dL (12.0-15.5) 08/20/18 06:35 Hct 45.2 % (36.0-46.0) 08/20/18 06:35 MCV 91.7 fL (80-95) 08/20/18 06:35 MCH 29.2 pg (27.0-33.0) 08/20/18 06:35 MCHC 31.9 g/dL (32.0-36.0) L 08/20/18 06:35 RDW 13.0 % (11.7-14.6) 08/20/18 06:35 Plt Count 303 x1000/uL (130-400) 08/20/18 06:35 MPV 9.8 fL (8.0-11.0) 08/20/18 06:35 Immature Gran % 0.0 08/20/18 06:35 Neutrophils % 79.0 08/20/18 06:35 Lymphocytes % 13.0 08/20/18 06:35 Monocytes % 3.0 08/20/18 06:35 Eosinophils % 0.0 08/20/18 06:35 Basophils % 0.0 08/20/18 06:35 Absolute Neutrophils 9.14 k/cumm (1.2-6.7) H 08/20/18 06:35 Absolute Lymphocytes 2.08 k/cumm (1.2-3.4) 08/20/18 06:35 Absolute Monocytes 0.35 k/cumm (0.11-0.7) 08/20/18 06:35 Absolute Eosinophils 0.00 k/cumm (0.0-0.7) 08/20/18 06:35 Absolute Basophils 0.00 k/cumm (0.0-0.2) 08/20/18 06:35 Differential Comment Manual differential 08/20/18 06:35 Atypical Lymphocytes 5 08/20/18 06:35 RBC Morphology Normal 08/20/18 06:35 Sodium 135 mmol/L (136-145) L 08/20/18 06:35 Potassium 4.2 mmol/L (3.5-5.1) 08/20/18 06:35 Chloride 98 mmol/L (98-107) 08/20/18 06:35 Carbon Dioxide 31.5 mmol/L (21.0-32.0) 08/20/18 06:35 Anion Gap 5.5 mmol/L (3-11) 08/20/18 06:35 BUN 26 mg/dL (7-18) H 08/20/18 06:35 Creatinine 0.66 mg/dL (0.55-1.02) 08/20/18 06:35 Estimated GFR/1.73 m2 >= 60.00 (mL/min/1.73m2) 08/20/18 06:35 Glucose 143 mg/dL (70-100) H 08/20/18 06:35 Lactate 1.0 mmol/L (0.6-1.4) 08/17/18 16:05 Calcium 9.9 mg/dL (8.5-10.1) 08/20/18 06:35 Magnesium 2.3 mg/dL (1.8-2.4) 08/20/18 06:35 Total Bilirubin 0.3 mg/dL (0.2-1.0) 08/17/18 13:00 AST 20 U/L (15-37) 08/17/18 13:00 ALT 33 U/L (12-78) 08/17/18 13:00 Alkaline Phosphatase 107 U/L (46-116) 08/17/18 13:00 Total Protein 7.8 g/dL (6.4-8.2) 08/17/18 13:00 Albumin 3.7 g/dL (3.4-5.0) 08/17/18 13:00
[2018-08-21] MEDS: Budesonide 0.5 MG/2 ML UPD VIAL UPD ×2 (13:26→21:46)
[2018-08-21] MEDS: LEVOFLOXACIN 500 MG/100 ML BAG 100 MG IVPB (16:16)
[2018-08-21] MEDS: Enoxaparin 40 MG/0.4 ML SYR SC (21:46)
[2018-08-21] MEDS: Doxepin 50 MG CAP 200 MG PO (21:46)
[2018-08-21] MEDS: Pantoprazole 40 MG VIAL IVP (21:46)
[2018-08-22 00:03] VITALS: BP 124/84; PULSE 89; RESP 19; TEMP 36.5; O2SAT 93
[2018-08-22] MEDS: methylPREDNISolone SUCC 40 MG VIAL IVP (03:43)
[2018-08-22] MEDS: Normal Saline Flush 10 ML SYR IVP ×2 (03:43→08:02)
[2018-08-22 07:55] VITALS: BP 104/72; PULSE 102; RESP 17; TEMP 36.6; O2SAT 91
[2018-08-22] MEDS: guaiFENesin/D-METHORPHAN HB 5 ML CUP 10 ML PO (08:02)
[2018-08-22] MEDS: ARIPiprazole 15 MG TAB 30 MG PO (08:03)
[2018-08-22] MEDS: Simvastatin 20 MG TAB PO (08:03)
[2018-08-22] MEDS: Lisinopril 10 MG TAB PO (08:04)
[2018-08-22] MEDS: Nystatin POWDER 60 GM JAR TP (08:04)
[2018-08-22 08:45] VITALS: O2SAT 91
[2018-08-22 09:40] VITALS: PULSE 102; PULSE 118; PULSE 123; RESP 20; RESP 24; O2SAT 89; O2SAT 90; O2SAT 91
--- NOTE | 2018-08-22 09:59 | PDOC.CMPRO ---
- If Service Date Differs Date of service: 08/22/18 Time of Service: 09:59 Care Management Progress Note S/O: Chapis is sitting on the edge of her bed when this greeting card writer visits with her this morning. She is pleasant and receptive to discussion. Chapis states that she is still coughing quite a bit, however states that it is better than when she first came to the hospital. Reviewed CM role and DC plans with Chapis. A: 57 y/o female admitted 08/17/18 for COPD Exacerbation, Bronchitis P: Chapis will return home when medically ready per MD. Anticipate patient will discharge with no services and follow up with her PCP. Chapis will transport via private vehicle with her mother or friend, Maryjane. CM will continue to offer support to patient and care team regarding discharge planning and disposition.
[2018-08-22 10:24] VITALS: RESP 8
[2018-08-22] MEDS: Albuterol/Ipratropium 3 ML UPD VIAL UPD (10:24)
[2018-08-22] MEDS: Budesonide 0.5 MG/2 ML UPD VIAL UPD (10:24)
--- NOTE | 2018-08-22 11:52 | DSE_ITS ---
Date of service: 08/22/18 Time of Service: 11:50 DS: Diagnosis Discharge Diagnosis (1) COPD (chronic obstructive pulmonary disease): Status: Chronic (2) Tobacco use disorder: Status: Chronic Discharge Plan Disposition Patient Disposition: HOME Condition: Serious Discharge Details Reason For Visit: COPD EXACERBATION, BRONCHITIS Admit Date/Time: 08/17/18 15:57 Admit Provider: Kael Ledesma Attending Provider: Kael Ledesma Primary Care Provider: Shahzad Olivarez Hospital Course Hospital Course: CC: Dyspnea HPI: 57-year-old woman with past medical history significant for ongoing tobacco use and likely underlying COPD, referred for admission from [facility] emergency department for a likely bronchitis with acute COPD exacerbation. Mrs. Cline has a prior medical history significant for likely COPD that is undiagnosed, and ongoing tobacco abuse. She also has a prior history of gastric ulcers, depression and anxiety, and chronic lower back pain. Hypertension and dyslipidemia are also listed as her past medical history, as is osteoarthritis. She was previously incarcerated due to narcotic distribution, as well as noted sedative drug abuse. Patient reported onset of dyspnea on the day prior to her admission, prompting an ED visit. At that time her lab work was unremarkable, she was afebrile and non-hypoxic, and her imaging with a chest x-ray showed no infiltrate. She was initiated on oral doxycycline and prednisone, and discharged home. However she returned the next day with worsening of her symptoms, including noted hypoxia and tachycardia, albeit still afebrile. Repeat imaging of the chest showed no evidence of infiltrate. Given her ongoing hypoxia and tachycardia she was referred for admission for further evaluation and treatment. The patient has been maintained on IV steroids, frequent duonebs, supplemental oxygen, and antibiotic therapy. She reports continued improvement in her symptoms today - she had been ambulating with supplemental O2 with a decreased overall oxygen requirement, but today she is no longer hypoxic on room air, and her ambulating O2 was acceptable . No overnight events reported. She remains afebrile. Hospital Course: (1) COPD (chronic obstructive pulmonary disease): With apparent acute exacerbation, with noted change in cough and sputum production. Repeat chest x-ray at time of admission again negative for infiltrate. Continue steroids and wean as outpatient. Will ensure patient has rescue inhaler at time of discharge. Given change in cough and sputum she was also give antibiotic therapy - received high- dose Levaquin in the ED, continued on 500 mg of daily levofloxacin and completed course. Discussed importance of tobacco cessation as well. Condition is vastly improved overall. (2) Tobacco use disorder: Encourage cessation - maintained on nicotine replacement therapy while hospitalized. (3) Hyperthyroidism: History of hyperthyroidism that appears resolved. Patient is not on replacement therapy. Repeat TSH is normal despite acute illness. (4) Gastric ulcer: History of gastric ulcers, not on PPI therapy. Given need for steroids was maintained on IV PPI - will transition to oral protonix short-term following discharge. Home Meds and New Rx's Prescriptions: New pantoprazole [Protonix] 40 mg tablet,delayed release (DR/EC) 40 mg PO DAILY Qty: 30 RF: 0 prednisone 10 mg tablet 10 mg PO DAILY Qty: 56 RF: 0 Continued simvastatin 20 MG tablet 1 tab PO DAILY Qty: 90 RF: 3 diclofenac sodium 75 MG tablet,delayed release (DR/EC) 75 mg PO BID PRNQty: 180 RF: 3 doxepin 100 MG capsule 200 mg PO HS Qty: 60 RF: 11 gabapentin 300 MG capsule 300 - 600 mg PO BID Qty: 90 RF: 5 lisinopril-hydrochlorothiazide 1 EACH tablet 1 tab-cap PO DAILY Qty: 90 RF: 3 acetaminophen [Tylenol] 325 MG tablet 2 tab PO PRN PRNRF: 0 aripiprazole [Abilify] 20 MG tablet 30 mg PO DAILY RF: 0 Changed ProAir HFA 90 mcg/actuation HFA aerosol inhaler 2 puff Inhalation Q4H PRN PRN (Reason: bronchospasm) Qty: 6.7 RF: 3 Discontinued doxycycline hyclate 100 mg capsule 100 mg PO BID 10 Days Qty: 20 RF: 0 Discharge Instructions Instructions: Acute Bronchitis (GEN), Bronchospasm (DC) Additional Instructions: Please see your primary doctor within 1-2 weeks of discharge Stand Alone Forms: Nursing Discharge Form Referrals: Shahzad Olivarez [Primary Care Provider] - (Dr. Olivarez's office will call you with an appointment) Activity:: No Strenuous Activity Equipment/Supplies:: No Equipment Needed Diet:: Heart Healthy Discharge Orders Discharge Orders: Discharge Order (Routine); Ordered 08/22/18 Ordered By: Kael Ledesma Exam Narrative Exam Narrative: General: Patient appears comfortable, AAOX3, NAD Neck: Supple CV: Regular, minimally tachycardic, S1S2, No rubs, murmurs, or gallops. Pulmonary: Improved breath sounds, with vastly improved air entry. Improved wheezing - now minimal at best but mostly resolved, with no crackles or rhonchi Abdomen: + Bowel Sounds, soft, nontender, nondistended, obese in contour Vascular: No lower extremity edema Psych: Normal mood and affect. DS: Data Vitals/I&O Vitals and I&O: Vital Signs Temperature 36.6 C 08/22/18 07:55 Temperature Source Tympanic 08/22/18 07:55 Pulse 102 H 08/22/18 07:55 Pulse Rhythm Regular 08/22/18 08:00 Pulse 109 H 08/17/18 19:00 Respiratory Rate 17 08/22/18 07:55 Respiratory Effort Non-Labored 08/22/18 08:00 Respiratory Depth Normal 08/22/18 08:00 Respiratory Pattern Normal 08/22/18 08:00 Blood Pressure 104/72 08/22/18 07:55 Blood Pressure Mean 101 08/17/18 18:45 Blood Pressure Position Sitting 08/17/18 12:21 Pulse Oximetry 91 L 08/22/18 07:55 Oxygen Delivery Method Nasal Cannula 08/22/18 07:55 Oxygen Flow Rate 1 08/22/18 07:55 Pain Level 0 08/21/18 07:55 Comment 08/21/18 14:35 Intake & Output 08/21/18 08/21/18 08/22/18 11:59 23:59 11:59 Intake Total 1200 / 1810 610 / 1810 610 / 610 Output Total 1600 / 1600 Balance -400 / 210 610 / 210 610 / 610 Intake: IV 160 / 280 120 / 280 10 / 10 Oral 1040 / 1530 490 / 1530 600 / 600 Output: Urine 1600 / 1600 Other: Urine Color Straw Urine Appearance Clear Clear Urine Odor None Comment voided into toilet when had BM voiding indep into toilet. Enc to use toilet not commode to promote ambulation. voiding indep into toilet. Enc to use toilet not commode to promote ambulation. Stool Size Large Stool Characteristics Formed Brown Voiding Methods Toilet Toilet Toilet Completed studies during hospitalization [Text1]: Exam(s) 08/16/2018 a RAD:XR chest 2V PA & lateral SYMPTOM/DIAGNOSIS: COUGH, WHEEZE PA AND LATERAL CHEST: Comparison is made with 10/19/14. The heart size is normal. There is minimal atelectasis versus scarring at the left lung base. No infiltrate, effusion or pulmonary edema is seen. IMPRESSION: No acute abnormality. Exam(s) 08/16/2018 a RAD:XR chest 2V PA & lateral SYMPTOM/DIAGNOSIS: F/U, COPD PA AND LATERAL CHEST: Comparison is made with 08/16/18. Heart size and pulmonary vasculature are stable. The lungs show no evidence of congestive heart failure or pneumonia. No effusions or pneumothoraces are identified. There is hyperinflation of the lungs with flattened diaphragms consistent with underlying COPD. Stable degenerative changes are seen in the spine. IMPRESSION: No acute pulmonary process. Labs on day of discharge: Preliminary micro results at discharge 08/17/18 16:23 Blood Culture - Preliminary Blood NO GROWTH 96 HOURS 08/17/18 16:05 Blood Culture - Preliminary Blood NO GROWTH 96 HOURS Rapid Influenza A & B Final 08/17/18-130 RESULT NEGATIVE FOR FLU A AND B ANTIGENS. A negative test result does NOT exclude an influenza infection on this screening assay. Correlation with clinical impression is recommended to determine if subsequent testing (molecular testing, PCR) is necessary. Sputum Culture Final 08/21/18 Day 1 Result ISOLATES BELOW DAY 1 GROWTH MODERATE GROWTH ISOLATE 1 APPEARANCE Normal Buddy Day 2 Result ISOLATES BELOW DAY 2 GROWTH MODERATE GROWTH ISOLATE 1 APPEARANCE Normal Buddy Day 3 Result ISOLATES BELOW DAY 3 GROWTH MODERATE GROWTH ISOLATE 1 APPEARANCE Normal Buddy Organism 1 NORMAL BUDDY GROWTH MODERATE GROWTH Gram Stain Final 08/18/18-0842 GRAM STAIN Moderate White Blood Cells Few Epithelial Cells Few Mixed Gram Positive & Gram Negative Buddy; None Predominant [facility] Medical History COPD (chronic obstructive pulmonary disease) (Chronic) Weight disorder (Chronic) Transaminase or LDH elevation (Chronic) Tobacco use disorder (Chronic) Sleep disturbance (Chronic 07/18/05) Sedative, hypnotic or anxiolytic abuse (Chronic) Hyperthyroidism (Resolved) Gastroparesis (Chronic 07/18/05) Gastric ulcer (Chronic 08/18/05) Depression (Chronic 07/18/05) COPD (chronic obstructive pulmonary disease) (Chronic) Surgical History History of back surgery (Chronic 10/17/17) Cholecystectomy (~06/2013) EGD - MAC KNEE SURGERY Replacement of total knee joint (04/17/17) Total replacement of hip ULCER/STOMACH SURGERY Family History Mother Essential hypertension Hyperlipidemia Stroke Grandfather Essential hypertension Stroke Father No problems noted. Grandmother Essential hypertension Stroke Grandfather Essential hypertension Stroke Grandmother No problems noted. Son No problems noted. Son No problems noted. Social History Smoking/Tobacco Use Status: Current-Occasional additional social history: The patient is . Has 2 children. 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 She has a 72-82-fodm-year history of smoking, currently ongoing. Denies any current illi cit drug or alcohol use, but previously used and sold narcotics.
--- NOTE | 2018-08-22 13:54 | PDOC.CMDIS ---
- If Service Date Differs Date of service: 08/22/18 Time of Service: 13:54 LACE Index Scoring Tool - Questions: Length of Stay (in days): 4 - 6 Acuity (Admit via E.D.?): Yes Comorbidities: Chronic Pulmonary Disease E.D. Visits: 2 - Answers: Total Score: 11 Risk of Readmission: High Risk Care Management Discharge Reason for Hospitalization: COPD Exacerbation Discharge Plan: Chapis will return home today with no services. She will F/U with PCP and plan of care as prescribed. Chapis's family to transport. Patient/Family Education Needs: Review DC instructions, any limitations, and discuss Ask Me Three
== END 2018-08-22 13:27 | disposition home or self-care (01) | DRG 192 ==
LOC: ER 16:22 → MS 19:14
PROVIDERS: Admitting Provider Internal Medicine; Emergency Provider Student in an Organized Health Care Education/Training Program; PCP Family Medicine; Visit Provider Internal Medicine
DX: J44.1 Chronic obstructive pulmonary disease with (acute) exacerbation (principal); R09.02 Hypoxemia; R00.0 Tachycardia, unspecified; F17.210 Nicotine dependence, cigarettes, uncomplicated; Z86.39 Personal history of other endocrine, nutritional and metabolic disease; Z87.11 Personal history of peptic ulcer disease; I10 Essential (primary) hypertension
CPT/HCPCS: 36415; 80048; 80053; 87040; 87449; 93005; 94640; 96361; 96365; 96375; 99222; 99232; 99239; 99285; J1650; 71046; 83605; 83735; 85025; 87070; 87205; 93010; J1956; J2930; J7614; J7620; J7626

== ENCOUNTER 2018-08-27 11:40 | Outpatient (CLI) | payer MEDICARE, MEDICAID, SELFPAY ==
[2018-08-27 13:02] LABS: Hemoglobin A1C 6.4 % (4.5-6.2)
[2018-08-27 13:24] LABS: Cholesterol 207 mg/dL (50-200); HDL Cholesterol 64 mg/dL (40-60); LDL CHOLESTEROL 100 mg/dL (<100); Triglyceride 203 mg/dL (30-150)
== END 2018-08-27 12:00 ==
PROVIDERS: PCP Family Medicine; Visit Provider Family Medicine
DX: E78.5 Hyperlipidemia, unspecified (principal); R73.02 Impaired glucose tolerance (oral)
CPT/HCPCS: 36415; 80061; 83721; 83036

== ENCOUNTER 2018-11-08 19:09 | Emergency (ER) | payer MEDICARE, MEDICAID, SELFPAY ==
[2018-11-08 19:15] VITALS: BP 164/101; PULSE 105; RESP 16; TEMP 36.1; O2SAT 98
--- NOTE | 2018-11-08 19:35 | DI.RAD_ITS ---
SYMPTOM/DIAGNOSIS: FELL, RT HIP AND KNEE PAIN RIGHT HIP AND PELVIS: Comparison is made with 07/04/16. A right hip prosthesis is again noted. There is a long stem component of the femoral component which is not fully included on the exam. No fracture or dislocation is seen. RIGHT KNEE: Comparison is made with 04/17/17. There is a total knee prosthesis. No fracture or joint effusion is seen. There is no periprosthetic lucency. IMPRESSION: Intact knee prosthesis. No acute abnormality.
--- NOTE | 2018-11-08 19:43 | ED.GENADUL_ITS ---
Discharge Plan Disposition Patient Disposition: HOME Condition: Good Discharge Details Chief Complaint: Orthopedic Clinical Impression: Acute pain of right hip Primary Care Provider: Shahzad Olivarez ED Provider: Alonso Garsia Home Meds and New Rx's Prescriptions: No Action diclofenac sodium 75 mg tablet,delayed release (DR/EC) 75 mg PO BID PRN (Reason: back pain) Qty: 180 RF: 1 doxepin 100 mg capsule 200 mg PO HS Qty: 60 RF: 11 simvastatin 20 mg tablet 20 mg PO DAILY Qty: 90 RF: 3 lisinopril-hydrochlorothiazide 1 EACH tablet 1 tab-cap PO DAILY Qty: 90 RF: 3 acetaminophen [Tylenol] 325 MG tablet 2 tab PO PRN PRNRF: 0 aripiprazole [Abilify] 20 MG tablet 30 mg PO DAILY RF: 0 albuterol sulfate [ProAir HFA] 90 mcg/actuation HFA aerosol inhaler 2 puff Inhalation Q4H PRN PRN (Reason: bronchospasm) Qty: 6.7 RF: 3 Discharge Instructions Instructions: Hip Pain (ED) Additional Instructions: Please use the crutches as directed. Please take Tylenol and Motrin as needed for pain. Please use ice over the sore areas. Please follow-up with your orthopedic surgeon . if you notice any worsening of your symptoms, or any new symptoms such as vomiting, diarrhea, fever, chills, shortness of breath, chest pain, numbness, weakness, or fainting , please return immediately to the emergency department for reevaluation. Please follow up with your primary care provider as soon as possible for reassessment and reevaluation. As always, it was a pleasure participating in your medical care today. Referrals: Ruben Walters MD [ [facility] STAFF PHYSICIAN] - Medical Decision Making This is a pleasant 58-year-old female who presents today for right hip and right knee pain. She has had a right hip and right knee replacement in [facility] over 10 years ago. She fell just moments prior to arrival by slipping on the ice. She did not hit her head or lose consciousness. She was able to get up with assistance and able to walk a few steps over the pain was notable. Pain is made worse with movement and is located in the right hip and right knee. Physical exam shows no signs of severe deformity, however we will get an x-ray to rule out acute process fracture. We will give Toradol for control of pain. Patient is neurovascularly intact, with no signs of neurovascular compromise at this time. 9:01 PM X-ray results have returned and there is no evidence of acute fracture for the knee or hip or pelvis. No evidence of abnormality for the orthotic component. The patient still does have mild to moderate pain with ambulation, however she was able to ambulate with a single person assist, as well as ambulate independently with crutches without significant discomfort. We did discuss potential CT imaging, however it is felt that because of the patient's orthotic that additional CT imaging would be unhelpful secondary to obfuscation from the metal in her hip replacement. With no signs of significant deformity on x-ray, and the patient being able to ambulate well without significant difficulty utilizing crutches, do feel that discharge home is reasonable at this time. Patient would like to go home, and would like to follow-up with her orthopedic surgeon that did her need . With no clinical signs of severe defor mity or fracture per virtual radiology for an x-ray of, we discussed red flags for which to me including worsening pain, worsening symptoms or continued difficulty with ambulation. I have extensively reviewed the treatment plan and discharge instructions with the patient and their family. I have addressed all patient concerns at this time. The patient and family was made aware of what symptoms to monitor for that would warrant a return to the emergency department. Discussed the plan with the patient and family, they demonstrate verbal understanding and agreement with our assessment and plan at this time. Technique: Imaging protocol: XR Right knee 3 views. Comparison: CR RIGHT KNEE LIMITED 1 OR 2 VIEW 04/17/2017 1:59 PM Findings: Bones/joints: Patient is status post complete right knee arthroplasty. No evidence of acute complications. Specifically, no belgica-hardware lucencies or periprosthetic fractures. No acute displaced fractures. No dislocation. No joint effusions. Soft tissues: No significant soft tissue swelling. Impression: No acute findings. Dictated and Authenticated by: Devin Mohr MD. Ordering:CHRISTI Gupta MD Comparison: CR RIGHT HIP COMPLETE POST REDUC 07/04/2016 9:35 AM Findings: Bones/joints: Patient status post complete right hip arthroplasty. No evidence of complications. Specifically, no belgica-hardware lucencies or periprosthetic fractures are appreciated. No acutely displaced skeletal fractures are otherwise seen. Mild osteoarthritis to the left hip joint, as manifested predominantly by tiny marginal osteophyte formation. Patient is status post lumbosacral spine fixation. Soft tissues: No acute soft tissue abnormalities are grossly noted. Impression: 1. No acute skeletal findings. 2. No discrete complications to the right hip arthroplasty. Dictated and Authenticated by: Devin Mohr MD. Ordering:CHRISTI Gupta MD HPI General Date/Time Provider Initiated Documentation: 11/08/18 19:20 . HPI Narrative: This is a 58-year-old female with a past medical history of hypert ension, high cholesterol, and a right hip replacement and a right knee replacement who presents today for evaluation of right hip pain mild right knee pain after a fall. The patient states that just a few minutes prior she was walking and slipped on ice, which led to notable pain in the right hip. She was able to walk with notable pain and difficulty. Strength is limited secondary to pain with movement. She has not taken any Tylenol or Motrin. She denies any numbness tingling or weakness otherwise. She denies any chest or abdomen pain. She did not hit her head, she is not on any blood thinners. She has no other complaints or modifying factors at this time. Related Data Home Medications Medication Instructions Recorded Confirmed acetaminophen [Tylenol] 2 tab PO PRN PRN 10/19/14 11/08/18 aripiprazole [Abilify] 30 mg PO DAILY 02/08/15 11/08/18 lisinopril-hydrochlorothiazide 1 tab-cap PO DAILY #90 tab-cap 02/12/18 11/08/18 albuterol sulfate [ProAir HFA] 2 puff INHALATION Q4H PRN PRN #6.7 08/22/18 11/08/18 gm diclofenac sodium 75 mg 75 mg PO BID PRN #180 tab-cap 08/27/18 11/08/18 tablet,delayed release doxepin 100 mg capsule 200 mg PO HS #60 tab-cap 08/27/18 11/08/18 simvastatin 20 mg tablet 20 mg PO DAILY #90 tab-cap 08/27/18 11/08/18 Previous Rx's Medication Instructions Recorded lisinopril-hydrochlorothiazide 1 tab-cap PO DAILY #90 tab-cap 02/12/18 albuterol sulfate [ProAir HFA] 2 puff INHALATION Q4H PRN PRN #6.7 08/22/18 gm diclofenac sodium 75 mg 75 mg PO BID PRN #180 tab-cap 08/27/18 tablet,delayed release doxepin 100 mg capsule 200 mg PO HS #60 tab-cap 08/27/18 simvastatin 20 mg tablet 20 mg PO DAILY #90 tab-cap 08/27/18 Allergies Allergy/AdvReac Type Severity Reaction Status Date / Time No Known Allergies Allergy Unverified 11/08/18 19:21 General Stated Complaint: Orthopedic BUFFY: 3 Review of Systems Review of Systems All systems reviewed & are unremarkable except as noted in HPI and below PFSH Medical History COPD (chronic obstructive pulmonary disease) (Chronic) Weight disorder (Chronic) Transaminase or LDH elevation (Chronic) Tobacco use disorder (Chronic) Sleep disturbance (Chronic 07/18/05) Sedative, hypnotic or anxiolytic abuse (Chronic) Hyperthyroidism (Resolved) Gastroparesis (Chronic 07/18/05) Gastric ulcer (Chronic 08/18/05) Depression (Chronic 07/18/05) COPD (chronic obstructive pulmonary disease) (Chronic) Surgical History History of back surgery (Chronic 10/17/17) Cholecystectomy (~06/2013) EGD - MAC KNEE SURGERY Replacement of total knee joint (04/17/17) Total replacement of hip ULCER/STOMACH SURGERY Social History Smoking/Tobacco Use Status: Current every day Alcohol Intake: never Drug use: Never Substance use type: does not use Do you feel safe at home: Yes Do you feel safe in your relationship?: Yes Additional Social history: The patient is . Has 2 children. 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 She has a 54-39-srhk-year history of smoking, currently ongoing. Denies any current illicit drug or alcohol use, but previously used and sold narcotics. Exam Narrative Exam Narrative: 1.Const: Well-nourished, Well-developed, appearing stated age 2.Eyes: PERRL, no conjunctival injection, and symmetrical lids. 3.ENT: Atraumatic external nose and ears. Moist MM. Neck: Symmetric, trachea midline, No thyromegaly. 4.CVS: +S1/S2, No murmurs or gallops. Peripheral pulses 2+ and equal in all extremities. Brisk capillary refill in all extremities. 5.RESP: Unlabored respiratory effort. Clear to auscultation bilaterally. No wheezes rales or rhonchi 6.GI: Soft, Nontender/Nondistended, No hepatosplenomegaly. No guarding or rebound. 7.MSK: Normocephalic/Atraumatic, Extremities w/o deformity. No cyanosis or clubbing, no gross deformities or discolorations or lesions. All compartments of upper and lower extremities are soft with no significant tenderness. Vascular exam demonstrates brisk capillary refill and intact pulses in all extremities. Pelvic exam demonstrates a stable pelvis, nontender to lateral compression and palpation of symphysis pubis. Notable worsening of pain with logroll of the right leg. No pain with movement or activity of the left leg. Minimal swelling distal to the right patella. Minimal redness and abrasion. No signs of deformity or dislocation of the right knee. Patient demonstrates reduced strength in the right lower extremity secondary to pain with movement. Normal sensation for both lower extremities, brisk capillary refill in all toes, dorsalis pedis pulses +2 bilaterally. No signs of significant neurovascular compromise. 8.Skin: Warm, Dry. No rashes or lesions. 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 Sensation grossly intact, no focal neurologic deficits. 10.Psych: (AAO) x3. Appropriate mood and affect Course Vital Signs Temperature 36.1 C L 11/08/18 19:15 Pulse 105 H 11/08/18 19:15 Respiratory Rate 16 11/08/18 19:15 Blood Pressure 164/101 H 11/08/18 19:15 Pulse Oximetry 98 11/08/18 19:15 Temperature 36.1 C L 11/08/18 19:15 Temperature Source Temporal Artery Scan 11/08/18 19:15 Pulse 105 H 11/08/18 19:15 Respiratory Rate 16 11/08/18 19:15 Respiratory Effort Non-Labored 11/08/18 19:19 Blood Pressure 164/101 H 11/08/18 19:15 Blood Pressure Position Sitting 11/08/18 19:15 Pulse Oximetry 98 11/08/18 19:15 Oxygen Delivery Method Room Air 11/08/18 19:15 Oxygen Flow Rate 0 11/08/18 19:15 Pain Level 8 11/08/18 19:19
[2018-11-08] MEDS: Ketorolac 30 MG/ML VIAL IM (19:49)
--- NOTE | 2018-11-08 20:26 | DI.VRAD_ITS ---
EXAM: XR Right Hip with Pelvis when Performed, 2 or 3 Views EXAM DATE/TIME: 11/08/2018 7:22 PM CLINICAL HISTORY: 58 years old, female; Pain; Hip pain; Right hip; Patient HX: S/P fall pain right hip. TECHNIQUE: Imaging protocol: XR Right hip with pelvis when performed, 2 or 3 views COMPARISON: CR RIGHT HIP COMPLETE POST REDUC 07/04/2016 9:35 AM FINDINGS: Bones/joints: Patient status post complete right hip arthroplasty. No evidence of complications. Specifically, no belgica-hardware lucencies or periprosthetic fractures are appreciated. No acutely displaced skeletal fractures are otherwise seen. Mild osteoarthritis to the left hip joint, as manifested predominantly by tiny marginal osteophyte formation. Patient is status post lumbosacral spine fixation. Soft tissues: No acute soft tissue abnormalities are grossly noted. IMPRESSION: 1. No acute skeletal findings. 2. No discrete complications to the right hip arthroplasty. Dictated and Authenticated by: Devin Mohr MD. Ordering:CHRISTI Gupta MD
--- NOTE | 2018-11-08 20:28 | DI.VRAD_ITS ---
EXAM: XR Right Knee, 3 Views EXAM DATE/TIME: 11/08/2018 7:22 PM CLINICAL HISTORY: 58 years old, female; Pain; Knee; Right; Prior surgery; Surgery date: 6+ months; Surgery type: Tkr; Patient HX: S/P fall, RT knee pain. TECHNIQUE: Imaging protocol: XR Right knee 3 views. COMPARISON: CR RIGHT KNEE LIMITED 1 OR 2 VIEW 04/17/2017 1:59 PM FINDINGS: Bones/joints: Patient is status post complete right knee arthroplasty. No evidence of acute complications. Specifically, no belgica-hardware lucencies or periprosthetic fractures. No acute displaced fractures. No dislocation. No joint effusions. Soft tissues: No significant soft tissue swelling. IMPRESSION: No acute findings. Dictated and Authenticated by: Devin Mohr MD. Ordering:CHRISTI Gupta MD
[2018-11-08 20:55] VITALS: BP 154/99; PULSE 101; RESP 16; TEMP 36.1; O2SAT 98
== END 2018-11-08 21:00 | disposition home or self-care (01) ==
PROVIDERS: Emergency Provider Student in an Organized Health Care Education/Training Program; PCP Family Medicine
DX: M25.551 Pain in right hip (principal); Z96.641 Presence of right artificial hip joint; Z96.651 Presence of right artificial knee joint; J44.9 Chronic obstructive pulmonary disease, unspecified
CPT/HCPCS: 73562; 96372; 99284; 73502; 99283; E0114; J1885

== ENCOUNTER 2018-11-25 18:16 | Outpatient (CLI) | payer MEDICARE, SELFPAY ==
--- NOTE | 2018-11-25 14:50 | DI.RAD_ITS ---
SYMPTOM/DIAGNOSIS: FELL, ONGOING RT HIP PAIN, M25.559 RIGHT HIP AND PELVIS: Comparison is made with 11/08/18. There are again seen post surgical changes of a right total hip replacement. No evidence of hardware failure is seen. No acute fracture or dislocation is present. The soft tissues are unremarkable. IMPRESSION: No acute fracture or dislocation.
== END 2018-11-25 18:36 ==
PROVIDERS: PCP Family Medicine; Visit Provider Family Medicine
DX: M25.551 Pain in right hip (principal); Z96.641 Presence of right artificial hip joint
CPT/HCPCS: 73502

== ENCOUNTER 2018-12-17 01:19 | Outpatient (CLI) | payer MEDICARE, SELFPAY ==
--- NOTE | 2018-12-17 14:08 | DI.CT_ITS ---
SYMPTOMS/DIAGNOSIS: LOW BACK PAIN WITH LEFT RADICULOPATHY, M54.5 CT SCAN OF THE LUMBAR SPINE AND SACROILIAC JOINTS: Comparison MRI is 10/09/17. Since the prior examination, the patient has undergone an L5 laminectomy, posterior spinal rods and placement of an L5-S1 intervertebral disc cage. There is normal alignment of the lumbar spine. No acute fractures or subluxations are present. There is artifact from the patient's orthopedic hardware present. At L1-L2, there is no focal disc herniation, central spinal canal or neural foraminal stenosis. At L2-L3, there is no focal disc herniation, central spinal canal or neural foraminal stenosis. At L3-L4, there does appear to be a mild diffuse disc bulge but no significant central spinal canal stenosis or neural foraminal stenosis is present. At L4-L5, there is disc desiccation. Degenerative changes of the facets are present. These contribute to cause a mild to moderate central canal stenosis. There is mild bilateral neural foraminal stenosis, left greater than right. At L5-S1, the disc space is obscured by the orthopedic hardware. There does not appear to be significant central spinal canal stenosis. There does appear to be significant narrowing of the neural foramen present. IMPRESSION: 1. Interval postsurgical changes at L5-S1 since 10/09/17. 2. Degenerative changes at L4-5 and L5-S1 as described. The findings result in central spinal canal and neural foraminal stenosis as described above.
== END 2018-12-17 01:39 ==
PROVIDERS: PCP Family Medicine; Visit Provider Family Medicine
DX: M54.5 Low back pain (principal); M54.16 Radiculopathy, lumbar region; M51.17 Intervertebral disc disorders with radiculopathy, lumbosacral region; Z98.890 Other specified postprocedural states
CPT/HCPCS: 72131

== ENCOUNTER → 2019-01-20 09:51 | Outpatient (BNVA) | payer MEDICARE, SELFPAY | PROVIDERS: PCP Family Medicine; Referring Provider Family Medicine; Visit Provider Orthopaedic Surgery | DX: M17.12 Unilateral primary osteoarthritis, left knee (principal); M25.562 Pain in left knee | CPT/HCPCS: 20610; 99211; J7325 ==

== ENCOUNTER 2019-01-21 00:44 | Outpatient (CLI) | payer MEDICARE, SELFPAY ==
--- NOTE | 2019-01-21 11:26 | DI.MRI_ITS ---
SYMPTOMS/DIAGNOSIS: WORSENING RT LEG PAIN AFTER FALL IN OCTOBER, ASSESS FOR POSSIBLE HNP, S/P LUMBAR FUSION 2018, M79.606, M54.5, Z98.1 MRI OF THE LUMBAR SPINE: Routine noncontrast examination was performed. Comparison MRI is 10/09/17. Since the prior examination, the patient has undergone an L 5 - S 1 fusion. The conus medullaris has a normal appearance and location. At L 5 - S 1 the neural foramen are compromised due to the orthopedic hardware artifact. No significant central spinal canal stenosis is seen. At L 4 - 5 there is disc desiccation. There is a mild diffuse disc bulge. No significant central spinal canal stenosis is seen. There is mild to moderate left and mild right neural foraminal stenosis present. At L 3 - 4 there is disc desiccation. There is a diffuse disc bulge. There does appear to be a small central extruded disc. No significant narrowing of the central spinal canal stenosis is seen. No nerve root compression is identified. No significant neural foraminal stenosis is present. At L 2 - 3 no focal disc herniation, central spinal canal or neural foraminal stenosis is present. L 1 - 2 shows mild disc desiccation. No focal disc herniation, central spinal canal or neural foraminal stenosis is seen. No findings to suggest an occult fracture are appreciated. IMPRESSION: 1. No findings to suggest an occult fracture in the lumbar spine. 2. Interval post surgical changes at L 5 - S 1 with posterior spinal fusion. 3. Multi-level degenerative changes in the lumbar spine resulting in neural foraminal stenosis as described above. The findings are most marked at L 4 - 5.
== END 2019-01-21 01:04 ==
PROVIDERS: PCP Family Medicine; Visit Provider Neurological Surgery
DX: M79.604 Pain in right leg (principal); M54.5 Low back pain; M51.16 Intervertebral disc disorders with radiculopathy, lumbar region; Z98.1 Arthrodesis status
CPT/HCPCS: 72148

== ENCOUNTER 2020-08-15 02:51 | Outpatient (CLI) | payer MEDICARE, SELFPAY ==
[2020-08-15 12:52] LABS: Iron 52 ug/dL (50-170)
[2020-08-15 13:03] LABS: Anion Gap 11.9 mmol/L (3-11); BUN 20 mg/dL (7-18); CO2 26.1 mmol/L (21.0-32.0); Calcium 9.9 mg/dL (8.5-10.1); Calculated LDL 98 mg/dL (<100); Chloride 104 mmol/L (98-107); Cholesterol 201 mg/dL (<200); Ferritin 16 ng/mL (8-252); Glucose 110 mg/dL (74-106); HDL Cholesterol 49 mg/dL (40-60); Sodium 142 mmol/L (136-145); Triglyceride 273 mg/dL (<150)
== END 2020-08-15 03:11 ==
PROVIDERS: PCP Family Medicine; Visit Provider Family Medicine
DX: D64.9 Anemia, unspecified (principal); E78.5 Hyperlipidemia, unspecified; E87.1 Hypo-osmolality and hyponatremia
CPT/HCPCS: 36415; 80048; 80061; 82728; 83540

== ENCOUNTER → 2021-03-15 02:25 | Outpatient (CLI) | payer MEDICARE, SELFPAY ==
--- NOTE | 2021-03-15 10:15 | DI.RAD_ITS ---
Exam(s) XR HIP LT COMPLETE AP PELVIS EXAM: XR HIP LT COMPLETE AP PELVIS CLINICAL HISTORY: left hip pain, LT SCIATICA,M54.32. TECHNIQUE: 2D digital imaging was performed. COMPARISON: CR XR hip RT complete AP pelvis from 11/25/2018 FINDINGS: There is fusion hardware in the lumbosacral spine lower aspect as well as an intervertebral disc spac e divide ower at L5-S1 level. There is a right hip prosthesis. Sacroiliac joints appear unremarkabl e. No evidence of acute fracture in the left hip nor significant narrowing of the hip joint space no r osteophytes. Small calcific densities seen lateral to the greater trochanter of the left hip, prob ably related to calcific tendinitis-bursitis. No lytic nor blastic osseous lesions evident. IMPRESSION: DATA REPOSITORY: RADIATION DOSE DELIVERED:
--- NOTE | 2021-03-15 10:19 | DI.RAD_ITS ---
Exam(s) XR LUMBAR SPINE COMPLETE EXAM: XR LUMBAR SPINE COMPLETE CLINICAL HISTORY: left low back pain,M54.9. TECHNIQUE: 2D digital imaging was performed. FINDINGS: There is variant anatomy here. There are 4 non rib bearing vertebral bodies and L5 segment is sacral ized. There is fusion hardware at this level with posterior fusion rods and bilateral intrapedicular screws as well as an intervertebral disc space divide ower at this level (which will be named L5-S1) . There is no listhesis at this level. No hardware fracture. There is moderate disc space narrowin g at 1 level above the fusion which is L4-5 and there appears to be mild anterolisthesis of L 4 upon L5. Approximately 5 millimeters. No pars defects at the L4 level. There is moderate disc space josé miguel rowing at L3-4 level. No disc space narrowing above this level. The 12th ribs are small but have ri b like appearance. Sacroiliac joints appear unremarkable. There is a right hip prosthesis. There i s evidence of previous cholecystectomy in the right upper quadrant and suture line is also seen in th e left upper quadrant. IMPRESSION: DATA REPOSITORY: RADIATION DOSE DELIVERED:
== END ==
PROVIDERS: PCP Family Medicine; Visit Provider Family Medicine
DX: M54.42 Lumbago with sciatica, left side (principal); M25.552 Pain in left hip
CPT/HCPCS: 72110; 73502

== ENCOUNTER → 2021-04-04 02:18 | Outpatient (CLI) | payer MEDICARE, SELFPAY ==
[2021-04-04 09:51] LABS: CREATININE 0.9 mg/dL (0.55-1.02)
[2021-04-04] MEDS: Normal Saline Flush 10 ML SYR IVP (10:06)
[2021-04-04] MEDS: Gadoterate meglumine 20 ML VIAL IVP (10:06)
--- NOTE | 2021-04-04 10:45 | DI.MRI_ITS ---
Exam(s) MR LUMBAR SPINE WO/W EXAM: MR LUMBAR SPINE WO/W CLINICAL HISTORY: back pain/prev back fusion sx in 2018,LT SCIATICA,M54.32. TECHNIQUE: Multiplanar multisequence MRI was performed. CR XR LUMBAR SPINE COMPLETE from 03/15/2021 CR XR LUMBAR SPINE COMPLETE from 03/15/2021 FINDINGS: MR examination lumbosacral spine was performed according to the usual protocol with additional pre an d post contrast axial and sagittal T1 fat sat imaging. Examination is compared with prior study of January 21 2019. Patient has history of prior Pelletier r od placement at the L5-S1 level. Prior examination showed slight persistent spondylolisthesis of L5 on S1, unchanged on today's examination. Conus medullaris appears intact. No significant findings from T 10 T11 through the T2-3 levels. No central canal spinal stenosis, neural foraminal stenosis, or disc herniation at these levels. At L3-4 there is a moderate disc bulge most prominent to the left. This is unchanged from the prior examination. There is no gross central canal spinal stenosis. No significant neural foraminal steno sis at this level. At L4-5 there is a moderate disc bulge without focal disc herniation. Slight bilateral neural forami nal narrowing noted, left greater than right. No significant change from prior examination. No cent ral canal spinal stenosis. At L5-S1 there is a mild disc bulge without evidence of disc herniation. There is mild left-sided ne ural foraminal narrowing and moderate right-sided neural foraminal narrowing. There is no central ca nal spinal stenosis. No change from prior study. IMPRESSION: Multilevel findings as described above, please see above discussion for findings at individual levels . No significant change from prior examination of January 2019. Bilateral neural foraminal stenosis no lukasz at L4-5 and L5-S1. DATA REPOSITORY:
== END ==
PROVIDERS: PCP Family Medicine; Visit Provider Family Medicine
DX: M54.32 Sciatica, left side (principal); M51.27 Other intervertebral disc displacement, lumbosacral region; M48.07 Spinal stenosis, lumbosacral region
CPT/HCPCS: 72158; 82565

== ENCOUNTER 2021-07-26 02:11 | Outpatient (CLI) | payer MEDICARE, SELFPAY ==
[2021-07-26 14:33] LABS: Abs Immature Grans 0.05 10^3/uL (0.0-0.06); Absolute Basophil Count 0.06 10^3/uL (0.0-0.2); Absolute Eosinophil Count 0.37 10^3/uL (0.0-0.7); Absolute Lymphocyte Count 2.55 10^3/uL (1.2-3.4); Absolute Monocyte Count 0.54 10^3/uL (0.1-0.8); Absolute Neutrophil Count 6.02 10^3/uL (1.2-6.7); Basophils % 0.6; Eosinophils % 3.9; HCT 43.5 % (36.0-46.0); Immature Grans % 0.5; Lymphocytes % 26.6; MCH 24.5 pg (27.0-33.0); MCHC 29.9 % (32.0-36.0); MCV 82.1 fL (80-95); MPV 9.3 fL (8.0-11.0); Monocytes % 5.6; Neutrophils % 62.8; Nucleated RBC 0 %; Platelet Count 387 10^3/uL (130-400); RDW 14.5 % (11.7-14.6); RDW-SD 43.1 fL; WBC 9.59 10^3/uL (4.4-10.8)
[2021-07-26 16:25] LABS: Iron 82 ug/dL (50-170)
[2021-07-26 16:38] LABS: Ferritin 13 ng/mL (8-252)
== END 2021-07-26 02:12 | disposition home or self-care (01) ==
LOC: LBO 02:11
PROVIDERS: PCP Family Medicine; Visit Provider Family Medicine
DX: D64.9 Anemia, unspecified (principal); R53.83 Other fatigue
CPT/HCPCS: 36415; 82728; 83540; 85025

== ENCOUNTER 2021-09-28 02:52 | Outpatient (CLI) | payer MEDICARE, SELFPAY ==
[2021-09-28 10:07] LABS: Anion Gap 8.7 mmol/L (3-11); BUN 17 mg/dL (7-18); CO2 27.3 mmol/L (21.0-32.0); CREATININE 0.8 mg/dL (0.55-1.02); Calcium 9.9 mg/dL (8.5-10.1); Calculated LDL 82 mg/dL (<100); Chloride 102 mmol/L (98-107); Cholesterol 187 mg/dL (<200); Glucose 132 mg/dL (74-106); HDL Cholesterol 54 mg/dL (40-60); Potassium 4.7 mmol/L (3.5-5.1); Sodium 138 mmol/L (136-145); Triglyceride 256 mg/dL (<150)
== END 2021-09-28 02:53 | disposition home or self-care (01) ==
LOC: LBO 02:52
PROVIDERS: PCP Family Medicine; Visit Provider Family Medicine
DX: E78.5 Hyperlipidemia, unspecified (principal); E87.1 Hypo-osmolality and hyponatremia
CPT/HCPCS: 36415; 80048; 80061

== ENCOUNTER 2022-05-04 00:57 | Outpatient (CLI) | payer MEDICARE, SELFPAY ==
--- OUTSIDE RECORDS SUMMARY | 2022-05-04 00:59 | XMS_ITS | Encounter Summary ---
:1960 Author Organization [facility] [place] [address] Care Team Providers Name Role Phone Lilli Carmona MD Primary Care Provider Encounter Details Date Type Department Care Team Description 02/11/2018 Interpretation Only [facility] Eveline Knight, [address], [place] [address] [facility] [place], [place] [address] (Wo rk) Social History Tobacco Use Types Packs/Day Years Used Date Never Assessed Sex Assigned at Date Recorded Not on file documented as of this encounter Plan of Treatment Not on filedocumented as of this encounter Procedures Procedure Name Priority Date/Time Associated Diagnosis Comme nts XR LUMBAR SPINE 2 Routine 02/11/2018 12:40 PM Res ults for this OR 3 VIEWS EDT procedure are i n the results section. documented in this encounter Results XR Lumbar Spine 2 Or 3 Views (Generic) (02/11/2018 12:40 PM EDT) Anatomical Region Laterality Modality L-spine N/A Radiographic Imaging Specimen (Source) Anatomical Collection Method Collection Time Re ceived Time Location / / Volume Laterality 02/11/2018 12:40 PM EDT Impressions 02/11/2018 1:21 PM EDT Status post L5-S1 fusion with as above. Narrative 02/11/2018 1:21 PM EDT EXAMINATION: SPINE LUMBAR (2-3VWS) -ROUTN CLINICAL HISTORY: ASSESS LUMBAR FUSION - ., L5,S1, ?? TECHNIQUE: Lateral views of the lumbar s pine including flexion and extension views. COMPARISON: 12/17/2017 FINDINGS: Status post L5-S1 fusion. The hardware r emains intact. There is intervertebral spacer at L5-S1, unchanged in position. There is L5-S1 spondylolisthesis, measur ing approximately 5mm and identified on all views. No significant instability. There is also minimal approximately 4 mm spondylolisthesis L5 on S1, seen on all views. Procedure Note Jake Renteria MD - 02/11/2018Format ting of this note might be different from the original. EXAMINATION: SPINE LUMBAR (2-3VWS) -ROUT N CLINICAL HISTORY: ASSESS LUMBAR FUSION - ., L5,S1, TECHNIQUE: Lateral views of the lumbar s pine including flexion and extension views. COMPARISON: 12/17/2017 FINDINGS: Status post L5-S1 fusion. The hardware r emains intact. There is intervertebral spacer at L5-S1, unchanged in position. There is L5-S1 spondylolisthesis, measur ing approximately 5mm and identified on all views. No significant instability. There is also minimal approximately 4 mm spondylolisthesis L5 on S1, seen on all views. IMPRESSION Status post L5-S1 fusion with as above. Eveline Knight MD IMG DX ORDERABLES documented in this encounter Visit Diagnoses Not on filedocumented in this encounter Care Teams Box Attacher Relationship Specialty Start Date End Date Lilli Carmona MD PCP - General 07/11/[address] [place] [address] documented as of this encounter
--- OUTSIDE RECORDS SUMMARY | 2022-05-04 00:59 | XMS_ITS | Encounter Summary ---
:1960 Author Organization [facility] [place] [address] Care Team Providers Name Role Phone Lilli Carmona MD Primary Care Provider Encounter Details Date Type Department Care Team Description 09/02/2015 Telephone [facility] [address] [place] [address] Social History Tobacco Use Types Packs/Day Years Used Date Never Assessed Sex Assigned at Date Recorded Not on file documented as of this encounter Miscellaneous Notes Telephone Encounter - [facility] Lowry - 09/02/2015 10:08 AM EST Left message for patient to give us a call at [phone] to schedule a GAP eval. documented in this encounter Plan of Treatment Not on filedocumented as of this encounter Visit Diagnoses Not on filedocumented in this encounter Care Teams Top Hat Body Maker Relationship Specialty Start Date End Date Lilli Carmona MD PCP - General 07/11/[address] [place], [place] [address] documented as of this encounter
--- OUTSIDE RECORDS SUMMARY | 2022-05-04 00:59 | XMS_ITS | Encounter Summary ---
:1960 Author Organization [facility] Address [address] [place] [address] Care Team Providers Name Role Phone Lilli Carmona MD Primary Care Provider Encounter Details Date Type Department Care Team Description 01/15/2008 Results Only [facility] - Lilli Carmona MD Maple conversion [address] [facility] [address] [place] [address] [place], [place] [phone] (Wo rk) Social History Tobacco Use Types Packs/Day Years Used Date Never Assessed Sex Assigned at Date Recorded Not on file documented as of this encounter Plan of Treatment Not on filedocumented as of this encounter Procedures Procedure Name Priority Date/Time Associated Comments Diagnosis HPV DETECTION, HIGH Routine 01/15/2008 8:20 Resul ts for this RISK TYPES EDT procedure are i n the results section. CYTOPATHOLOGY Routine 01/15/2008 0:00 Results for this EDT procedure are i n the results section. documented in this encounter Results HUMAN PAPILLOMA VIRUS DNA TEST (01/15/2008 8:20 EDT) Specimen Description Cervix, ThinPrep [facility] Result Positive for one or more of HPV types 16,18,31,33,35,39,45,51,52,56,58,59, or 68. These [facility] high/intermediate risk HPV t ypes are associated with dysplasia and some cervical cancers. LAB Report Status Final [facility] [id number] [facility] Specimen Performing Organization Address City/State/ZIP Code Phon e Number [facility] [address] [place] [address] SERVICES [facility] [address] [place] [address] CYTOPATHOLOGY (01/15/2008 0:00 EDT) Pathology Report: CYTOPATHOLOGY REPORT [facility] RENATE ANG[facility] Reports generated via electronic interface contain julee ginal data; however they are lacking the format of the original re port. Caution should be taken when reading/interpreting unfo rmatted reports. Name: ? MICHELLE JAMES ? Accession #: ? [id number] : ? 1960 (Age: 47) ??F ?Collect Date: ? 12/18 Location: ? [facility] ? Receive Date : ? 01/16/2008 Provider: ?LILLI CARMONA MD Copy to: ? Specimen/Source: ?ThinPrep Pap Test, E ndocervix, processed on Back& ThinPrep Imaging System, with manual evaluation Last Menstrual Period: ? 10/24 Other: ? HPVDX - HPV testing requested regardless of diag nosis on current ThinPrep Pap test. ? SPECIMEN ADEQUACY ? Satisfactory for Evaluation - transformation zone component absent GENERAL CATEGORIZATION ? Negative for Intraepithelial Lesion or Malignan cy ? Document reviewed and electronically signed by: ? Ida Guo, SCT(ASCP) ? Report Date: ??01/19/2008 13:27 End of Report Specimen Performing Organization Address City/State/ZIP Code Phon e Number [facility] [address] [place] [address] SERVICES [facility] [address] [place] [address] documented in this encounter Visit Diagnoses Not on filedocumented in this encounter Care Teams Face Man Relationship Specialty Start Date End Date Lilli Carmona MD PCP - General 09/16/09 03/31/[address] [place] [phone] documented as of this encounter
--- OUTSIDE RECORDS SUMMARY | 2022-05-04 00:59 | XMS_ITS | Encounter Summary ---
:1960 Author Organization [facility] [place] [address] Care Team Providers Name Role Phone Lilli Carmona MD Primary Care Provider Encounter Details Date Type Department Care Team Description 04/15/2012 Orders Only Orthopaedics at [facility] Michael Ramirez, S/P hip replacement [facility] (Primary Dx) [place] [address] [address] [phone] ORTHOPAEDIC SURGERY [place] [address] Social History Tobacco Use Types Packs/Day Years Used Date Never Assessed Sex Assigned at Date Recorded Not on file documented as of this encounter Plan of Treatment Not on filedocumented as of this encounter Visit Diagnoses Diagnosis S/P hip replacement - Primary Hip joint replacement by other means documented in this encounter Care Teams Online Merchandiser Relationship Specialty Start Date End Date Lilli Carmona MD PCP - General 07/11/[address] [place] [address] documented as of this encounter
--- OUTSIDE RECORDS SUMMARY | 2022-05-04 00:59 | XMS_ITS | Encounter Summary ---
:1960 Author Organization [facility] [place] [address] Care Team Providers Name Role Phone Lilli Carmona MD Primary Care Provider Encounter Details Date Type Department Care Team Description 03/15/2021 Ancillary Procedure Radiology at [facility] Frederic Mosquera MD [facility] [place] [address] [facility], [place] [address] (Wo rk) Social History Tobacco Use Types Packs/Day Years Used Date Never Assessed Sex Assigned at Date Recorded Not on file documented as of this encounter Plan of Treatment Not on filedocumented as of this encounter Procedures Procedure Name Priority Date/Time Associated Diagnosis Comme nts FILM LIBRARY Routine 03/15/2021 12:00 AM Results for this STORAGE ONLY DX EDT procedure ar e in SPINE the results section. documented in this encounter Results Film Library- Storage Only DX Spine (03/15/2021 12:00 AM EDT) Specimen (Source) Anatomical Location Collection Method / Collectio n Time Received Time / Laterality Volume Narrative RAD - 04/05/2021 9:14 PM EDT This exam is auto-finalizing. It's purpo se is for storage only. Frederic Mosquera MD IMG FILM LIBRARY ORDERABLES Performing Organization Address City/State/ZIP Code Phon e Number RAD [place], [place] documented in this encounter Visit Diagnoses Not on filedocumented in this encounter Care Teams Renal Case Manager Relationship Specialty Start Date End Date Lilli Carmona MD PCP - General 07/11/[address] [place] [address] documented as of this encounter
--- OUTSIDE RECORDS SUMMARY | 2022-05-04 00:59 | XMS_ITS | Encounter Summary ---
:1960 Author Organization [facility] [place] [address] Care Team Providers Name Role Phone Lilli Carmona MD Primary Care Provider Encounter Details Date Type Department Care Team Description 11/06/2017 Interpretation Only [facility] Eveline Knight, [address], [place] [address] [facility] [phone] [place], [place] [address] (Wo rk) Social History Tobacco Use Types Packs/Day Years Used Date Never Assessed Sex Assigned at Date Recorded Not on file documented as of this encounter Plan of Treatment Not on filedocumented as of this encounter Procedures Procedure Name Priority Date/Time Associated Diagnosis Comme nts XR O-ARM MORE THAN Routine 11/06/2017 1:30 PM Res ults for this ONE HOUR EDT procedure are i n the results section. documented in this encounter Results XR O-Arm More Than One Hour (11/06/2017 1:30 PM EDT) Anatomical Region Laterality Modality Other Specimen (Source) Anatomical Collection Method Collection Time Re ceived Time Location / / Volume Laterality 11/06/2017 1:30 PM EDT Impressions 11/07/2017 8:23 AM EDT C-arm fluoroscopy used for intraoperative guidance. Fluoroscopy time: Six seconds Dose (mGy): 34 Images demonstrate a fixation device mid line attaching to the spinous process with transpedicular screws and intravert ebral spacer at L5-S1. No neural foraminal interruption. Narrative 11/07/2017 8:23 AM EDT EXAMINATION: O-ARM ( =>1HR ) CLINICAL HISTORY: RIGHT L5-S1 FACETECTOM Y PLIF CORTICAL SCREW - OR ROOM 2, ?? Spot fluoroscopic and tomographic images submitted. Procedure Note Adarsh Smith MD - 11/07/2017Formattin g of this note might be different from the original. EXAMINATION: O-ARM ( =>1HR ) CLINICAL HISTORY: RIGHT L5-S1 FACETECTOM Y PLIF CORTICAL SCREW - OR ROOM 2, Spot fluoroscopic and tomographic images submitted. IMPRESSION C-arm fluoroscopy used for intraoperativ e guidance. Fluoroscopy time: Six seconds Dose (mGy): 34 Images demonstrate a fixation device mid line attaching to the spinous process with transpedicular screws and intravert ebral spacer at L5-S1. No neural foraminal interruption. Eveline Knight MD PACS IMAGES documented in this encounter Visit Diagnoses Not on filedocumented in this encounter Care Teams Plaster Molder Relationship Specialty Start Date End Date Lilli Carmona MD PCP - General 07/11/[address] [place] [address] documented as of this encounter
--- OUTSIDE RECORDS SUMMARY | 2022-05-04 00:59 | XMS_ITS | Encounter Summary ---
:1960 Author Organization [facility] Address [address] [place] [address] Care Team Providers Name Role Phone Lilli Carmona MD Primary Care Provider Encounter Details Date Type Department Care Team Description 01/07/2007 Results Only [facility] - Lilli Carmona MD Maple conversion [address] [facility] [address] [place], [place] [id number] [place] [phone] (Wo rk) Social History Tobacco Use Types Packs/Day Years Used Date Never Assessed Sex Assigned at Date Recorded Not on file documented as of this encounter Plan of Treatment Not on filedocumented as of this encounter Procedures Procedure Name Priority Date/Time Associated Diagnosis Comme nts CYTOPATHOLOGY Routine 01/07/2007 0:00 EDT Results for this procedure are i n the results section . documented in this encounter Results CYTOPATHOLOGY (01/07/2007 0:00 EDT) Pathology Report: CYTOPATHOLOGY REPORT [facility] Reports generated via electronic interface contain julee ginal data; however they are lacking the format of the original re port. Caution should be taken when reading/interpreting unfo rmatted reports. Name: ? MICHELLE JAMES ? Accession #: ? [id number] : ? 1960 (Age: 46) ??F ?Collect Date: ? 12/18 Location: ? [facility] ? Receive Date : ? 01/08/2007 Provider: ?LILLI CARMONA MD Copy to: ? Specimen/Source: ?ThinPrep Pap Test, E ndocervix, processed on [employer] ThinPrep Imaging System, with manual evaluation Last Menstrual Period: ? 3 yrs ago Other: ? HPVA - HPV testing requested if ASC-US on the current ThinPrep Pap test. ? SPECIMEN ADEQUACY ? Satisfactory for Evaluation - transformation zone component present GENERAL CATEGORIZATION ? Negative for Intraepithelial Lesion or Malignan cy ? Document reviewed and electronically signed by: ? RICA Allred(ASCP) ? Report Date: ??01/15/2007 07:46 End of Report Specimen Performing Organization Address City/State/ZIP Code Phon e Number [facility] [address] [place] [address] SERVICES [facility] [address] [place] [address] documented in this encounter Visit Diagnoses Not on filedocumented in this encounter Care Teams Diesel Dinkey Engineer Relationship Specialty Start Date End Date Lilli Carmona MD PCP - General 09/16/09 03/31/[address] [place] [phone] documented as of this encounter
--- OUTSIDE RECORDS SUMMARY | 2022-05-04 00:59 | XMS_ITS | Clinical Summary ---
:1960 Author Organization [facility] [place] [address] Care Team Providers Name Role Phone Lilli Carmona MD Primary Care Provider Allergies Active Allergy Reactions Severity Noted Date Comments Adhesive Tape Medium CIS - Urticari a Diphenhydramine Hcl High CIS - ge ts hyper Doxepin Medium CIS - urinary r etention Hydroxyzine High CIS - paradoxic al agitation Nsaids (Non-Steroidal High CIS - Stomach ulcers Anti-Inflammatory Drug) Tramadol Hcl High CIS - Nausea/Vo miting Medications Medication Sig Dispensed Refills Start Date End Date Status esomeprazole (NEXIUM) 40 40M 0 03/17/2010 Active mg capsule Capsule(s), PO, Twice daily metoprolol succinate 0 03/17/2010 Active (TOPROL-XL) 50 mg 24 hr tablet mirtazapine (REMERON) 15 0 03/17/2010 Active mg tablet DULoxetine (CYMBALTA) 30 0 03/17/2010 Active mg capsule dicyclomine (BENTYL) 10 10 MG = 1 0 03/22/2010 Active mg capsule Capsule(s), PO, Three times daily,PRN ALPRAZOLAM ORAL 0 03/17/2010 Act asha polyethylene glycol 0 03/29/2010 Active (MIRALAX) 17 gram/dose powder docusate sodium (COLACE) 0 03/17/2010 Active 100 mg capsule risperidone (RISPERDAL) 0 03/17/2010 Active 2 mg tablet lithium (ESKALITH) 450 0 03/17/2010 Active mg CR tablet bisacodyl (DULCOLAX) 10 0 03/29/2010 Active mg suppository MINERAL OIL (ENEMA RECT) 0 03/29/2010 Active Active Problems Problem Noted Date Spondylosis of lumbosacral region 08/31/2015 Immunizations Name Administration Dates Next Due Influenza Vaccine (Novel) [id number], 09/18/2009 Injectable Influenza Vaccine, Whole 06/19/2009, 06/15/2008, 09/10/2005 Pneumococcal Polyvalent 23 09/10/2005 Social History Tobacco Use Types Packs/Day Years Used Date Never Assessed Sex Assigned at Date Recorded Not on file Plan of Treatment Health Maintenance Due Date Last Done Comments Covid-19 Vaccine (#1) 1967 HIV screen 1980 Hepatitis C Screening 1980 Tdap adult 1981 Tetanus vaccine 1981 HPV test 1992 PAP Smear 1992 Breast Cancer Share Decision 2002 Needed Colonoscopy 2007 Breast Cancer screening 2012 Zoster vaccine (1 of 2) 2012 Influenza (Flu) vaccine (1 of 1 - 04/19/2022 09/18/2009, , Influenza standard series) 06/15/2008, Additiona l history exists Insurance Payer Benefit Plan / Subscriber ID Effective Dates Phone Addre ss Type Group MEDICARE MEDICARE PART [id number] 2009-Prese [phone] [facility] [place] [id number] [place] [id number] 2017-Prese [phone] [address] [place] [address] Advance Directives Documents on File Type Date Recorded Patient Belt Maker Explanati on Advance Directives and Living 10/18/2010 8:56 AM Will Care Teams Acting Teacher Relationship Specialty Start Date End Date Lilli Carmona MD PCP - General 07/11/[address] [place] [address]
--- OUTSIDE RECORDS SUMMARY | 2022-05-04 00:59 | XMS_ITS | Encounter Summary ---
:1960 Author Organization [facility] Address [address] [place] [address] Care Team Providers Name Role Phone Unavailable Primary Care Provider Unavailable Encounter Details Date Type Department Care Team Description 09/13/2009 Orders Only [facility] Pat Carmona MD Laboratory Services - [address] [place] [address] [address] [place] [address] [phone] Social History Tobacco Use Types Packs/Day Years Used Date Never Assessed Sex Assigned at Date Recorded Not on file documented as of this encounter Plan of Treatment Not on filedocumented as of this encounter Procedures Procedure Name Priority Date/Time Associated Diagnosis Comme [facility] SURGICAL PATHOLOGY Routine 09/13/2009 0:00 EST Re sults for this procedure are i n the results section. documented in this encounter Results SURGICAL PATHOLOGY (09/13/2009 0:00 EST) Pathologist [facility] Pathology Report: SURGICAL PATHOLOGY REPORT ? [facility] Reports generated via electr TUBE interface contain original data; ? LAB however they are lacking the format of the original report. ? Caution should be taken when reading/interpreting unformatted reports. ? Name: ? GIACOBBE, KATHLE EN ? Accession #: ? [id number] ? : ? 1960 (Age: 49) ??F ? Collec t Date: ? 09/13/2009 ? Location: ? [facility] ? R eceive Date: ? 09/14/2009 ? Provider: MILAGROS M DOBBERTIN MD ? Copy to: ? Final Pathologic Diagnosis: ? Endometrium, biopsy: ? - Fragments of inactive endo metrium. ? Document reviewed and electr onically signed by: ? Victor Manuel Mckeon. Paez, MD ? Report ??Date: 09/19/2009 17 :47 ? By the signature above, the attending physician certifies that he/she has ? personally conducted a gross and/or microscopic examination of the described ? specimens and rendered or co nfirmed the above diagnosis. ? Specimen(s) Received: ? Endometrial bx ? Clinical History: ? DUB ? Gross Description: ? Received in formalin labelled Marlyn, Chapis and endometrial bx is a 1.0 x 0.7 x 0.2 cm aggrega te of henning-brown, focally pale henning soft, fragmented ?? tissue which is submitted en tirely in one cassette. (Naseem Garrett)/mpl ? End of Report ? Specimen Performing Organization Address City/State/ZIP Code Phon e Number [facility] [address] [place] [address] SERVICES [facility] [address] [place] [address] documented in this encounter Visit Diagnoses Not on filedocumented in this encounter
--- OUTSIDE RECORDS SUMMARY | 2022-05-04 00:59 | XMS_ITS | Encounter Summary ---
:1960 Author Organization [facility] Address [address] [place] [address] Care Team Providers Name Role Phone Lilli Carmona MD Primary Care Provider Encounter Details Date Type Department Care Team Description 08/16/2005 Results Only [facility] - Allison Pascual MD [employer] conversion [address] [place] [address] [place] [address] Social History Tobacco Use Types Packs/Day Years Used Date Never Assessed Sex Assigned at Date Recorded Not on file documented as of this encounter Plan of Treatment Not on filedocumented as of this encounter Procedures Procedure Name Priority Date/Time Associated Diagnosis Comme [facility] CYTOPATHOLOGY Routine 08/16/2005 0:00 EST Results for this procedure are i n the results section . documented in this encounter Results CYTOPATHOLOGY (08/16/2005 0:00 EST) Pathology Report: CYTOPATHOLOGY REPORT [facility] Reports generated via electronic interface contain julee ginal data; however they are lacking the format of the original re port. Caution should be taken when reading/interpreting unfo rmatted reports. Name: ? MICHELLE JAMES ? Accession #: ? [id number] : ? 1960 (Age: 44) ??F ?Collect Date: ? 07/20 Location: ? [facility] ? Receive Date : ? 08/21/2005 Provider: ?KOJO PASCUAL MD Copy to: ?NICOLE LEZAMA MD ? Specimen/Source: ? ThinPrep Pap Test, Cervix/Endocervix, processed on [facility] ThinPrep Imaging System, with manual evaluation Last Menstrual Period: ? SPECIMEN ADEQUACY ? Satisfactory for Evaluation - transformation zone component present - scant squamous epithelial component secondary to exc essive inflammation GENERAL CATEGORIZATION ? Negative for Intraepithelial Lesion or Malignan cy INTERPRETATION ? Reactive cellular festus nges associated with inflammation present (includes repair). ? COMMENT ? The cell sample is atrophic. ? Document reviewed and electronically signed by: ? KEVIN CHU MD [facility] ? Report Date: ??08/24/2005 18:42 End of Report Specimen Performing Organization Address City/State/ZIP Code Phon e Number [facility] [address] [place] [address] SERVICES [facility] [address] [place] [address] documented in this encounter Visit Diagnoses Not on filedocumented in this encounter Care Teams Program Supervisor Relationship Specialty Start Date End Date Lilli Carmona MD PCP - General 09/16/09 03/31/[address] [place] [id number] documented as of this encounter
--- OUTSIDE RECORDS SUMMARY | 2022-05-04 00:59 | XMS_ITS | Encounter Summary ---
:1960 Author Organization [facility] [place] [address] Care Team Providers Name Role Phone Lilli Carmona MD Primary Care Provider Encounter Details Date Type Department Care Team Description 03/15/2021 Ancillary Procedure Radiology at [facility] Frederic Mosquera MD [address] [facility] [address] NEUROSURGERY-[place], [place] [address] (Wo rk) Social History Tobacco Use Types Packs/Day Years Used Date Never Assessed Sex Assigned at Date Recorded Not on file documented as of this encounter Plan of Treatment Not on filedocumented as of this encounter Procedures Procedure Name Priority Date/Time Associated Diagnosis Comme nts FILM LIBRARY Routine 03/15/2021 12:05 AM Results for this STORAGE ONLY DX HIP EDT procedur e are in the results section. documented in this encounter Results Film Library- Storage Only DX Hip (03/15/2021 12:05 AM EDT) Specimen (Source) Anatomical Location Collection Method / Collectio n Time Received Time / Laterality Volume Narrative RAD - 04/05/2021 9:17 PM EDT This exam is auto-finalizing. It's purpo se is for storage only. Frederic Mosquera MD G FILM LIBRARY ORDERABLES Performing Organization Address City/State/ZIP Code Phon e Number [facility] [place], [place] documented in this encounter Visit Diagnoses Not on filedocumented in this encounter Care Teams Guyline Operator Relationship Specialty Start Date End Date Lilli Carmona MD PCP - General 07/11/[address] [place] [address] documented as of this encounter
--- OUTSIDE RECORDS SUMMARY | 2022-05-04 00:59 | XMS_ITS | Encounter Summary ---
:1960 Author Organization [facility] [place] [address] Care Team Providers Name Role Phone Lilli Carmona MD Primary Care Provider Encounter Details Date Type Department Care Team Description 11/06/2017 Interpretation Only [facility] Eveline Knight, [address], [place] [address] [address] [facility] [phone] [place], [place] [address] (Wo rk) Social History Tobacco Use Types Packs/Day Years Used Date Never Assessed Sex Assigned at Date Recorded Not on file documented as of this encounter Plan of Treatment Not on filedocumented as of this encounter Procedures Procedure Name Priority Date/Time Associated Diagnosis Comme nts XR FLUORO MORE THAN Routine 11/06/2017 1:30 PM Re sults for this ONE HOUR EDT procedure are i n the results section. documented in this encounter Results XR FLUORO MORE THAN ONE HOUR (11/06/2017 1:30 PM EDT) Anatomical Region Laterality Modality Other Specimen (Source) Anatomical Collection Method Collection Time Re ceived Time Location / / Volume Laterality 11/06/2017 1:30 PM EDT Impressions 11/07/2017 8:22 AM EDT C-arm fluoroscopy used for intraoperative guidance. Fluoroscopy time: 11 seconds Dose (mGy): Nine Images demonstrate a metallic device pro jecting posteriorly at the L5-S1 intervertebral disc space level. Vacuum disc phenomenon noted. Narrative 11/07/2017 8:22 AM EDT EXAMINATION: C-ARM (=>1HR) CLINICAL HISTORY: RIGHT L5-S1 FACETECTOM Y PLIF CORTICAL SCREW - OR ROOM 2, ?? Procedure Note Adarsh Smith MD - 11/07/2017Formjasper colon of this note might be different from the original. EXAMINATION: C-ARM (=>1HR) CLINICAL HISTORY: RIGHT L5-S1 FACETECTOM Y PLIF CORTICAL SCREW - OR ROOM 2, IMPRESSION C-arm fluoroscopy used for intraoperativ e guidance. Fluoroscopy time: 11 seconds Dose (mGy): Nine Images demonstrate a metallic device pro jecting posteriorly at the L5-S1 intervertebral disc space level. Vacuum disc phenomenon noted. Eveline Knight MD PACS IMAGES documented in this encounter Visit Diagnoses Not on filedocumented in this encounter Care Teams Intake Clinician Relationship Specialty Start Date End Date Lilli Carmona MD PCP - General 07/11/[address] [place] [address] documented as of this encounter
--- OUTSIDE RECORDS SUMMARY | 2022-05-04 00:59 | XMS_ITS | Encounter Summary ---
:1960 Author Organization [facility] [place] [address] Care Team Providers Name Role Phone Lilli Carmona MD Primary Care Provider Encounter Details Date Type Department Care Team Description 05/16/2012 Telephone Orthopaedics at [facility] [place] [address] Social History Tobacco Use Types Packs/Day Years Used Date Never Assessed Sex Assigned at Date Recorded Not on file documented as of this encounter Miscellaneous Notes Telephone Encounter - Mely Vang - 05/16/2012 1:08 PM EDT The patient had not been seen at our office since April of 2009. We set her up for a rotary appointment that was later bumped. When I called to reschedule the appointment, I found that all appointments had been cancelled since April 2010 and the phone numbers were not in service. I called the PCP's office and they informed me that she has been incarcerated. They were not certain of the lengthof time she will be but were under the impression that it would be for a very long period of time. The bumped appointment has been deleted and I will arrange for a note to be placed in [facility] for this change. documented in this encounter Plan of Treatment Not on filedocumented as of this encounter Visit Diagnoses Not on filedocumented in this encounter Care Teams Globe Cleaner Relationship Specialty Start Date End Date Lilli Carmona MD PCP - General 07/11/[address] [place] [address] documented as of this encounter
--- OUTSIDE RECORDS SUMMARY | 2022-05-04 00:59 | XMS_ITS | Encounter Summary ---
:1960 Author Organization [facility] [place] [address] Care Team Providers Name Role Phone Lilli Carmona MD Primary Care Provider Encounter Details Date Type Department Care Team Description 12/17/2017 Interpretation Only [facility] Brandi Montano [address] [place] [address] [place] [address] [phone] (Wo rk) Social History Tobacco Use Types Packs/Day Years Used Date Never Assessed Sex Assigned at Date Recorded Not on file documented as of this encounter Plan of Treatment Not on filedocumented as of this encounter Procedures Procedure Name Priority Date/Time Associated Diagnosis Comme nts XR LUMBAR SPINE 2 Routine 12/17/2017 10:46 AM Res ults for this OR 3 VIEWS EDT procedure are i n the results section. documented in this encounter Results XR Lumbar Spine 2 Or 3 Views (Generic) (12/17/2017 10:46 AM EDT) Anatomical Region Laterality Modality L-spine N/A Radiographic Imaging Specimen (Source) Anatomical Collection Method Collection Time Re ceived Time Location / / Volume Laterality 12/17/2017 10:46 AM EDT Impressions 12/17/2017 12:10 PM EDT 1. ??Interval L5-S1 fusion. 2. ??Slight motion at L4-5 level with na rrowed disc space. Narrative 12/17/2017 12:10 PM EDT EXAMINATION: SPINE LUMBAR (2-3VWS) -ROUTN CLINICAL HISTORY: ASSESS HEALING - S/P F USION, L5,S1, ?? TECHNIQUE: Neutral flexion-extension lat eral views. COMPARISON: CT scan of abdomen pelvis [facility] October 2009 FINDINGS: L5-S1 posterior instrumented fusion and placement of interbody graft. No radiolucency surrounding hardware. Number of non-rib bearing lumbar-type ve rtebrae: 5 Vertebral bodies: Normal vertebral heigh t. No vertebral fracture. There are small vertebral body osteophytes. Disk spaces: Normal. Soft tissues:Unchanged narrow L3-4 L4-5 disc spaces. Diffuse aortic wall calcifications. Alignment: L4-5:5 mm anterolisthesis on neutral, 4 mm on extension and reduce on flexion. L5-S1: 5 mm anterolisthesis unchanged on all images. Procedure Note Leslie Little MD - 12/17/2017Formatt ing of this note might be different from the original. EXAMINATION: SPINE LUMBAR (2-3VWS) -ROUT N CLINICAL HISTORY: ASSESS HEALING - S/P F USION, L5,S1, TECHNIQUE: Neutral flexion-extension lat eral views. COMPARISON: CT scan of abdomen pelvis [facility] October 2009 FINDINGS: L5-S1 posterior instrumented fusion and placement of interbody graft. No radiolucency surrounding hardware. Number of non-rib bearing lumbar-type ve rtebrae: 5 Vertebral bodies: Normal vertebral heigh t. No vertebral fracture. There are small vertebral body osteophytes. Disk spaces: Normal. Soft tissues:Unchanged narrow L3-4 L4-5 disc spaces. Diffuse aortic wall calcifications. Alignment: L4-5:5 mm anterolisthesis on neutral, 4 mm on extension and reduce on flexion. L5-S1: 5 mm anterolisthesis unchanged on all images. IMPRESSION 1. Interval L5-S1 fusion. 2. Slight motion at L4-5 level with narr owed disc space. Brandi Miranda IMG DX ORDERABLES documented in this encounter Visit Diagnoses Not on filedocumented in this encounter Care Teams Color Card Maker Relationship Specialty Start Date End Date Lilli Carmona MD PCP - General 07/11/[address] [place] [address] documented as of this encounter
--- OUTSIDE RECORDS SUMMARY | 2022-05-04 00:59 | XMS_ITS | Clinical Summary ---
:1960 Author Organization [facility] Address [address] [place] [address] Care Team Providers Name Role Phone Unknown, Provider Primary Care Provider Lilli Carmona MD Unavailable Social History Tobacco Use Types Packs/Day Years Used Date Never Assessed Sex Assigned at Date Recorded Not on file Plan of Treatment Health Maintenance Due Date Last Done Comments Hepatitis C Screen 1960 COVID-19 Vaccine (1) 1974 Care Teams E Learning Developer Relationship Specialty Start Date End Date Unknown, Provider, PCP - General 04/01/18 Lilli Carmona MD 04/01/[address] [place] [phone]
--- OUTSIDE RECORDS SUMMARY | 2022-05-04 00:59 | XMS_ITS | Encounter Summary ---
:1960 Author Organization [facility] Address [address] [place] [address] Care Team Providers Name Role Phone Unknown, Provider Primary Care Provider Lilli Carmona MD Unavailable Reason for Visit (Routine) - Receiving Office to Obtain Authorization Specialty Diagnoses / Procedures Referred By Contact Refer red To Contact Procedures Unknown, ProviderMD MR OUTSIDE IMAGES NEURO Phone: Referral ID Status Reason Start Expiration Visits Visits Date Date Requested Authorized [id number] Receiving Office 04/04/2021 1 1 to Obtain Authorization Encounter Details Date Type Department Care Team Description 04/04/2021 Hospital Encounter [facility] Secondary Reads [place] Social History Tobacco Use Types Packs/Day Years Used Date Never Assessed Sex Assigned at Date Recorded Not on file documented as of this encounter Discharge Disposition Disposition Code Departure Means Destination Home or Self Care documented in this encounter Plan of Treatment Not on filedocumented as of this encounter Procedures Procedure Name Priority Date/Time Associated Diagnosis Comme nts MR OUTSIDE IMAGES Routine 04/04/2021 16:00 Result s for this NEURO EDT procedure are i n the results section. documented in this encounter Results MR OUTSIDE IMAGES NEURO (04/04/2021 16:00 EDT) Specimen Narrative 04/04/2021 16:00 EDT This is a non-reportable exam. documented in this encounter Visit Diagnoses Not on filedocumented in this encounter Care Teams Furnace Checker Relationship Specialty Start Date End Date Unknown, ProviderMD PCP - General 04/01/18 Lilli Carmona MD 04/01/[address] [place] [address] [address] [place] [address] documented as of this encounter
--- OUTSIDE RECORDS SUMMARY | 2022-05-04 00:59 | XMS_ITS | Encounter Summary ---
:1960 Author Organization [facility] [place] [address] Care Team Providers Name Role Phone Lilli Carmona MD Primary Care Provider Encounter Details Date Type Department Care Team Description 04/04/2021 Ancillary Procedure Radiology at [facility] Frederic Mosquera MD [address] [facility] [place] [address] NEUROSURGERY-[place], [place] [address] (Wo rk) Social History Tobacco Use Types Packs/Day Years Used Date Never Assessed Sex Assigned at Date Recorded Not on file documented as of this encounter Plan of Treatment Not on filedocumented as of this encounter Procedures Procedure Name Priority Date/Time Associated Diagnosis Comme nts FILM LIBRARY Routine 04/04/2021 12:00 AM Results for this STORAGE ONLY MR EDT procedure ar e in SPINE the results section. documented in this encounter Results Film Library- Storage Only MR Spine (04/04/2021 12:00 AM EDT) Specimen (Source) Anatomical Location Collection Method / Collectio n Time Received Time / Laterality Volume Narrative RAD - 04/05/2021 9:18 PM EDT This exam is auto-finalizing. It's purpo se is for storage only. Frederic Mosquera MD IMG FILM LIBRARY ORDERABLES Performing Organization Address City/State/ZIP Code Phon e Number RAD [place], [place] documented in this encounter Visit Diagnoses Not on filedocumented in this encounter Care Teams Ruby Software Developer Relationship Specialty Start Date End Date Lilli Carmona MD PCP - General 07/11/[address] [place] [address] documented as of this encounter
--- OUTSIDE RECORDS SUMMARY | 2022-05-04 00:59 | XMS_ITS | Encounter Summary ---
:1960 Author Organization [facility] Address [address] [place] [address] Care Team Providers Name Role Phone Unavailable Primary Care Provider Unavailable Encounter Details Date Type Department Care Team Description 09/05/2009 Orders Only [facility]- Jenae Vanegas NP [phone] [address] [place], [place] [address] (Wo rk) Social History Tobacco Use Types Packs/Day Years Used Date Never Assessed Sex Assigned at Date Recorded Not on file documented as of this encounter Plan of Treatment Not on filedocumented as of this encounter Procedures Procedure Name Priority Date/Time Associated Comments Diagnosis HPV DETECTION, HIGH Routine 09/05/2009 14:12 Resu lts for this RISK TYPES EST procedure are i n the results section. CYTOPATHOLOGY Routine 09/05/2009 0:00 Results for this EST procedure are i n the results section. documented in this encounter Results HUMAN PAPILLOMA VIRUS DNA TEST (09/05/2009 14:12 EST) Specimen Description Cervix, ThinPrep [facility] vial Result Negative for HPV [facility] types 16, 18, 31, 33, 35, 39, 45, 51, 52, 56, 58, 59, and 68. Report Status Final [facility] 09/13/2009 Specimen Performing Organization Address City/State/ZIP Code Phon e Number [facility] [address] [place] [address] SERVICES [facility] [address] [place] [address] CYTOPATHOLOGY (09/05/2009 0:00 EST) Pathology Report: CYTOPATHOLOGY REPORT ? [facility] Reports generated via electr onic interface contain original data; ? however they are lacking the format of the original report. ? Caution should be taken when reading/interpreting unformatted reports. ? Name: ? MARY JAMES ? Accession #: ? [id number] ? : ? 1960 (Age: 48) ??F ?Collect Date: ? 09/05/2009 ? Location: ? [facility] ? Receive Date: ? 09/06/2009 ? Provider: ?JENAE SIDNEY MORAN [employer]SPORT AIRCREWMAN ? Copy to: ? Specimen/Source: ? Pap Test, Cervix/Endocervix, ThinPrep Imaging System ? with manual evaluation ? Last Menstrual Period: ? 12/09 ? Previous Gynecologic Patholo gy: ? HPV: high risk ? Other: ? Additional clinical informat ion: LMP 12/09 prior to this one years since menses HPVDX - HPV testing requeste d regardless of diagnosis on current ThinPrep Pap ?? test. ? SPECIMEN ADEQUACY ? Satisfactory for Eval uation ? - transformation zone compon ent present ? - obscuring contamination, p ossibly lubricant ? GENERAL CATEGORIZATION ? Negative for Intraepi thelial Lesion or Malignancy ? Document reviewed and electr onically signed by: ? Lynan Marcial, [place](ASCP) ? Report Date: ??// 2009 09:33 ? End of Report ? Specimen Performing Organization Address City/State/ZIP Code Phon e Number [facility] [address] [place] [address] SERVICES [facility] [address] [place] [address] documented in this encounter Visit Diagnoses Not on filedocumented in this encounter
--- NOTE | 2022-05-04 07:45 | DI.RAD_ITS ---
Exam(s) XR HIP LT COMPLETE AP PELVIS EXAM: XR HIP LT COMPLETE AP PELVIS CLINICAL HISTORY: left hip pain and limp,m25.552. TECHNIQUE: 2D digital imaging was performed. COMPARISON: CR XR HIP LT COMPLETE AP PELVIS from 03/15/2021 FINDINGS: 3 views Right hip prosthesis again noted. Left hip appears unremarkable. No fracture. No obvious degenerat asha changes. Bone density normal. No osseous lesions. Fusion hardware in the lower lumbar spine ag ain noted. IMPRESSION: DATA REPOSITORY: RADIATION DOSE DELIVERED:
== END 2022-05-04 01:17 ==
LOC: DI 00:57
PROVIDERS: PCP Family Medicine; Visit Provider Family Medicine
DX: M25.552 Pain in left hip (principal)
CPT/HCPCS: 73502

== ENCOUNTER 2022-07-02 09:53 | Outpatient (CLI) | payer MEDICARE, SELFPAY ==
--- NOTE | 2022-07-02 09:45 | DI.RAD_ITS ---
Exam(s) XR STANDING ALIGNMENT EXAM: XR STANDING ALIGNMENT CLINICAL HISTORY: evaluate leg length discrepancy. TECHNIQUE: 2D digital imaging was performed. Standing AP views were performed from the pelvis throu gh the ankles. COMPARISON: No exams were available for comparison FINDINGS: BONES: There is a right hip prosthesis with long stem femoral component. A right total knee prosthes is is noted. No acute fracture is present. No bony destructive lesion is seen. Leg length discrepancy: The right iliac crest projects slightly superior to the left. JOINTS: Knees: Severe narrowing of the medial femoral tibial joint space of the left knee. The right ankle is unremarkable. The left ankle is not well profiled. SOFT TISSUE: Bilateral lower extremity soft tissue edema, right greater than left. IMPRESSION: Severe degenerative changes medial femoral tibial joint space of the left knee.. Mild overall leg length discrepancy. DATA REPOSITORY: RADIATION DOSE DELIVERED:
== END 2022-07-02 09:54 | disposition home or self-care (01) ==
PROVIDERS: PCP Family Medicine; Referring Provider Family Medicine; Visit Provider Physician Assistant
DX: M48.061 Spinal stenosis, lumbar region without neurogenic claudication (principal); M25.552 Pain in left hip; M54.16 Radiculopathy, lumbar region; Z98.890 Other specified postprocedural states
CPT/HCPCS: 99203; 77073

== ENCOUNTER 2022-07-23 02:49 | Outpatient (CLI) | payer MEDICARE, SELFPAY ==
--- NOTE | 2022-07-23 07:15 | DI.MRI_ITS ---
Exam(s) MR LUMBAR SPINE WO EXAM: MR LUMBAR SPINE WO CLINICAL HISTORY: PAIN,lumbar radiculopathy,m54.16. TECHNIQUE: Multiplanar multisequence MRI of the Lumbar spine was performed. COMPARISON: MR MR LUMBAR SPINE WO/W from 04/04/2021 CR XR STANDING ALIGNMENT from 07/02/2022 FINDINGS: Bones: The last intervertebral disc space is designated the L5/S1 level for the numbering purpose of this examination. The vertebral body heights are well maintained. Alignment is satisfactory. The ma rrow signal characteristics are unremarkable. Posterior fusion hardware is again noted at the L5-S1 l evel. This creates mild artifact. Cord: The conus tip ends at the T12 level. It is of normal size and signal intensity. T12-L1: No disc herniations or bulges are present. No central spinal canal or neural foraminal stenos is. L1-2: No disc herniations or bulges are present. No central spinal canal or neural foraminal stenosis . L2-3: No disc herniations or bulges are present. No central spinal canal or neural foraminal stenosis . L3-4: Moderate loss of disc height. Stable appearance of disc bulging. No significant central canal stenosis or neural foraminal narrowing. L4-5: Stable concentric disc bulging and small endplate osteophytes. Mild loss of disc height. Face t degenerative changes encroach upon the foramen bilaterally. No central spinal canal stenosis. L5-S1: Postsurgical disc spacer material.. No central spinal canal stenosis.Severe right neural fora enrique narrowing secondary to a combination of endplate osteophytes and facet encroachment. The visualized SI joints and sacrum are well maintained. Soft tissues: The paraspinal soft tissues are unremarkable. IMPRESSION: No evidence of disc herniation. Postsurgical changes at L5-S1. Stable disc bulging and facet degenerative changes at L3-4 and L4-5. Neural foraminal narrowing greatest at L5-S1 on the right. DATA REPOSITORY:
== END 2022-07-23 03:09 ==
LOC: DI 02:49
PROVIDERS: PCP Family Medicine; Visit Provider Student in an Organized Health Care Education/Training Program
DX: M51.16 Intervertebral disc disorders with radiculopathy, lumbar region; M47.26 Other spondylosis with radiculopathy, lumbar region; Z98.890 Other specified postprocedural states
CPT/HCPCS: 72148

== ENCOUNTER 2022-09-26 09:42 | Outpatient (CLI) | payer MEDICARE, SELFPAY ==
[2022-09-26 12:41] LABS: Hemoglobin A1C 5.7 % (<5.7)
[2022-09-26 12:48] LABS: ALT 16 U/L (14-59); AST 14 U/L (15-37); Albumin 3.9 g/dL (3.4-5.0); Alkaline Phosphatase 80 U/L (46-116); BUN 8 mg/dL (7-18); Bilirubin, Total 0.2 mg/dL (0.2-1.0); CREATININE 0.7 mg/dL (0.55-1.02); Calcium 10.3 mg/dL (8.5-10.1); Calculated LDL 66 mg/dL (<100); Chloride 100 mmol/L (98-107); Cholesterol 156 mg/dL (<200); Estimated GFR 98.95 (mL/min/1.73m2); Glucose 118 mg/dL (74-106); HDL Cholesterol 57 mg/dL (40-60); Potassium 3.8 mmol/L (3.5-5.1); Sodium 139 mmol/L (136-145); Total Protein 7.6 g/dL (6.4-8.2); Triglyceride 167 mg/dL (<150)
== END 2022-09-26 09:43 | disposition home or self-care (01) ==
LOC: LOS 09:42
PROVIDERS: PCP Family Medicine; Referring Provider Family Medicine; Visit Provider Family Medicine
DX: R10.9 Unspecified abdominal pain (principal); E78.5 Hyperlipidemia, unspecified; R73.9 Hyperglycemia, unspecified
CPT/HCPCS: 36415; 80053; 80061; 83036

== ENCOUNTER 2023-01-29 00:55 | Outpatient (CLI) | payer MEDICARE, SELFPAY ==
--- NOTE | 2023-01-29 | DI.MRI_ITS ---
Exam(s) MR LUMBAR SPINE WO EXAM: MR LUMBAR SPINE WO CLINICAL HISTORY: RT LEG AND BACK PAIN, H/O FUSION,M54.30,SCIATICA,SPONDYLOSIS,M47.816,Z98.1. TECHNIQUE: Multiplanar multisequence MRI of the Lumbar spine was performed. COMPARISON: CR XR LUMBAR SPINE COMPLETE from 03/15/2021 MR MR LUMBAR SPINE WO/W from 04/04/2021 MR MR LUMBAR SPINE WO from 07/23/2022 FINDINGS: Again noted is posterior fusion hardware at L5-S1 level comprised of posterior fusion rods and bilate ral intrapedicular screws at these 2 levels. There is also artifact from and intervertebral disc spa ce device at L5-S1 disc space level. Conus medullaris is at L2 level. There is no evidence of conus mass nor subjacent clumping of intrat hecal nerve roots to suggest arachnoiditis. The distal thecal sac appears unremarkable.There is no e vidence of Tarlov intrasacral cysts nor other significant findings within the sacral canal Bones:There are no fractures nor ominous osseous lesions in the lumbar vertebral bodies and visualize d sacrum. No evidence of discitis nor osteomyelitis. With respect to the individual levels... T12-L1: Unremarkable L1-2: Normal disc height and signal. No disc herniation nor central canal stenosis.No foraminal steno sis L2-3: Normal disc height. No disc herniation nor central canal stenosis.No foraminal stenosis.No face t arthropathy. L3-4: This level exhibits moderate decreased disc height and signal.. This is more evident on the le ft side of this disc space. Also lateral bridging osteophytes on the left side at this level noted w hich have slowly increase from plain x-rays of February 2021. There is broad annular bulging at this level, somewhat more so on the left side. There is extension of disc bulge into the exiting left neural foramen with mild-moderate left-sided foraminal stenosis a t this level. This has significantly increased when compared to MRI scan of July 2022 (left side ). There is mild central canal stenosis at this level due to short AP dimensions the pedicles. L4-5: This is 1 level above the fusion. The bilateral intrapedicular screws at L5 level quite close to the endplate levels, particularly under right-side. The left side intra pedicular screw at this level continues 1.5 cm into the anterior aspect of the ve rtebra anterior to the pedicle. On the left side the intra pedicular screw ends at the junction of t he anterior aspect of the pedicle and the posterior aspect of the anterior vertebral body, similar to previous. There is mild central canal stenosis at this level At this disc level there is chronic disc space narrowing again noted. There is annular bulging exten ding into the floor of the exiting left neural foramen with mild foraminal stenosis at this level aga in noted, unchanged. Slightly more prominent foraminal stenosis is noted on the right side at this l evel, also unchanged. Facets appear unchanged. L5-S1: This is the level of the fusion. The bilateral intrapedicular screws in S1 exhibit normal pos itions. There is artifact from in intervertebral disc space divide ower slightly to the right of wagner ter at this disc space. There is no disc herniation at this level. Central canal dimensions are low er normal. No prominent listhesis. Minimal foraminal stenosis on the left side, unchanged. On the right side at this level there is again noted significant narrowing and impingement of the exiting ne rve root between the overlying right L5 pedicle and subjacent annular bulging. However, this finding is unchanged from the study of 07/23/2022 Soft tissues: paraspinal soft tissues appear unremarkable. IMPRESSION: 1. Compared to prior MRI scan of 07/23/2022 there is again noted posterior fusion hardware at L5-S1 l evel which appears unchanged in position and no evidence of discitis nor osteomyelitis nor paraspinal abscess. The previously described significant neural foramina ink on the right-sided L5-S1 level is again noted. 2. However, the most significant new finding is at the L3-4 level where there is significant annular bulging now evident in the exiting left neural foramen with mild-moderate left-sided foraminal stenos is. More so than on the scan of July 2022.. However, this is not severe spinal canal stenosis. There is mild central canal stenosis at this level which is mostly due to short AP dimensions the pe dicles. 3. Other findings as above. DATA REPOSITORY:
== END 2023-01-29 01:15 ==
LOC: DI 00:56
PROVIDERS: PCP Family Medicine; Visit Provider Physician Assistant Medical
DX: M54.9 Dorsalgia, unspecified (principal); Z98.1 Arthrodesis status; M48.061 Spinal stenosis, lumbar region without neurogenic claudication
CPT/HCPCS: 72148

== ENCOUNTER 2023-08-24 09:03 | Observation (INO) | payer MEDICARE, SELFPAY ==
[2023-08-24] VITALS (32 sets, daily range): BP systolic 107–169; BP diastolic 58–102; PULSE 72–105; RESP 13–21; TEMP 36.4–37; O2SAT 92–100
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
--- NOTE | 2023-08-24 09:45 | DI.CT_ITS ---
Exam(s) CT LUMBAR SPINE SI JOINTS WO EXAM: CT LUMBAR SPINE SI JOINTS WO CLINICAL HISTORY: Spinal stenosis, increased falls. TECHNIQUE: Imaging Protocol: Axial computed tomography images with coronal and sagittal reformatted images were created and reviewed. COMPARISON: CT CT LUMBAR SPINE SI JOINTS WO from 12/17/2018 CR XR LUMBAR SPINE COMPLETE from 03/15/2021 MR MR LUMBAR SPINE WO/W from 04/04/2021 MR MR LUMBAR SPINE WO from 07/23/2022 MR MR LUMBAR SPINE WO from 01/29/2023 FINDINGS: Bones: No fractures or dislocations are seen. There is a right convex lumbar scoliosis. Postsurgical changes with posterior spinal rods and pedicle screws are seen at L5-S1. The right pedicle screw at L5 extends beyond the superior aspect of the cortex of the left pedicle. There is lucency seen arou nd the right L5 pedicle screw particularly inferiorly and anteriorly. This may reflect loosening. T here is also a discectomy at L5-S1. There are vacuum discs at L3-L4, L4-L5. The L3 vertebral body i s laterally subluxed relative to L4 which is chronic. There are degenerative changes seen at the sac roiliac joints bilaterally. Soft tissues: The degenerative changes there is moderately severe central spinal canal stenosis at L3 -L4. There is also marked central spinal canal stenosis at L4-L5 due to the degenerative changes pre sent. Bilateral neural foraminal stenosis is seen at L3-L4. There is atherosclerosis present. IMPRESSION: 1. Postsurgical changes of posterior L5-S1 instrumentation and L5-S1 discectomy. 2. The right L5 pedicle screw extends beyond the borders of the superior aspect of the left pedicle. 3. There is a lucency seen around the right S1 pedicle screw which can be seen with loosening. 4. Multilevel degenerative changes causing central spinal canal stenosis at L3-4 and L4-L5. 5. No acute fracture or subluxation. RADIATION DOSE DELIVERED: 734.04mGy.cm Total DLP 734.04mGy.cm Total DLP DATA REPOSITORY: All CT scans at this facility are submitted to the National Radiology Data Registry (NRDR) Dose Index Registry (DIR) with the [employer] ([employer]). RADIATION OPTIMIZATION: All CT scans at this facility use at least one of these dose optimization te chniques: automated exposure control; mA and/or kV adjustment per patient size (includes targeted exa ms where dose is matched to clinical indication); or iterative reconstruction.
[2023-08-24 10:04] LABS: Abs Immature Grans 0.02 10^3/uL (0.0-0.06); Absolute Basophil Count 0.04 10^3/uL (0.0-0.2); Absolute Lymphocyte Count 1.29 10^3/uL (1.2-3.4); Absolute Monocyte Count 0.51 10^3/uL (0.1-0.8); Absolute Neutrophil Count 6.35 10^3/uL (1.2-6.7); Basophils % 0.5; Eosinophils % 2.4; HCT 32.8 % (36.0-46.0); Immature Grans % 0.2; Lymphocytes % 15.3; MCH 18.7 pg (27.0-33.0); MCHC 27.4 % (32.0-36.0); MCV 68 fL (80-95); MPV 8.5 fL (8.0-11.0); Monocytes % 6.1; Neutrophils % 75.5; RBC 4.82 10^6/uL (3.93-5.22); RDW 17.5 % (11.7-14.6); RDW-SD 42.4 fL; WBC 8.41 10^3/uL (4.4-10.8)
[2023-08-24] MEDS: hydroCHLOROthiazide 12.5 MG TAB PO (10:07)
[2023-08-24] MEDS: HYDROmorphone 2 MG TAB PO ×2 (10:07→16:18)
[2023-08-24] MEDS: Lisinopril 10 MG TAB PO (10:07)
[2023-08-24] MEDS: Diclofenac Sodium 75 MG TABEC PO ×2 (10:07→16:23)
[2023-08-24] MEDS: fentaNYL 75 MCG PATCH TD (10:08)
[2023-08-24 10:24] LABS: ALT 16 U/L (14-59); AST 12 U/L (15-37); Albumin 3.6 g/dL (3.4-5.0); Alkaline Phosphatase 68 U/L (46-116); BUN 5 mg/dL (7-18); Bilirubin, Total 0.3 mg/dL (0.2-1.0); CREATININE 0.7 mg/dL (0.55-1.02); Calcium 10.5 mg/dL (8.5-10.1); Chloride 101 mmol/L (98-107); Estimated GFR 98.95 (mL/min/1.73m2); Glucose 106 mg/dL (74-106); Magnesium 1.9 mg/dL (1.8-2.4); Potassium 3.2 mmol/L (3.5-5.1); Sodium 140 mmol/L (136-145); Total Protein 7.3 g/dL (6.4-8.2)
[2023-08-24 10:25] LABS: Diff Comment Diff Reviewed; Hypochromasia 2+; Microcytosis 2+; Platelet Count 612 10^3/uL (130-400); Polychromasia Present
[2023-08-24 10:26] LABS: Poikilocytes 2+
--- NOTE | 2023-08-24 10:56 | DI.VRAD_ITS ---
PROCEDURE INFORMATION: Exam: CT Lumbar Spine Without Contrast Exam date and time: 08/24/2023 10:29 AM Age: 62 years old Clinical indication: Pain and injury or trauma; Fall and other: History of spinal stenosis, multiple falls; Low back pain; Prior surgery; Surgery date: 6+ months; Surgery type: Lumbar TECHNIQUE: Imaging protocol: Computed tomography of the lumbar spine without contrast. COMPARISON: MR LUMBAR SPINE WO 01/29/2023 10:01 AM FINDINGS: Bones/joints: Surgical changes of posterior L5-S1 instrumentation with L5-S1 disc cage. No hardware fracture. There is a 1 mm lucency surrounding the right S1 screw. The right L5 screw is violating the upper endplate the right L5 into the right aspect of the L4-L5 disc space. In addition, the right L5 screw is violating the superior border of the right pedicle into the inferior aspect of the right L4-L5 neural foramen. No acute fracture or dislocation. There is a mild curvature of the lumbar spine convex to the right. There is advanced degenerative disease at L3-L4 and L4-L5 with vacuum phenomenon, disc space narrowing, endplate sclerosis and anterior and posterior osteophytes. There is severe thecal sac compression at L3-L4 with posterior osteophyte disc complex as well as bilateral neural foraminal narrowing. There is a posterior osteophyte disc complex at L4-L5 with moderate thecal sac compression. There is degenerative disease of bilateral sacroiliac joints. Vasculature: There are bilateral aortoiliac calcifications. Soft tissues: Unremarkable. Atelectatic changes in the dependent lung bases. IMPRESSION: 1. No posttraumatic changes. 2. Posterior L5-S1 instrumentation hardware with the right L5 screw violating the superior border of the right pedicle and the upper L5 endplate. 3. Advanced degenerative at L3-L4 and L4-L5 more significant at L3-L4. Dictated and Authenticated by: Surjit Escalante MD. Ordering:JENNA Fulton MD
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
[2023-08-24] MEDS: Potassium Chloride 20 MEQ TABCR 40 MEQ PO (12:43)
[2023-08-24 12:44] LABS: Bilirubin Negative (Negative); Blood Negative (Negative); Clarity Cloudy (Clear); Glucose Negative (Negative); Ketones Negative (Negative); Leukocyte Esterase Negative (Negative); Nitrite Positive (Negative)
[2023-08-24 13:03] LABS: Bacteria Many HPF (Negative); C & S Indicated? Yes; Casts Negative LPF (Negative); Crystals Negative HPF (Negative); Epithelial Cells Rare HPF (Negative); Mucus Negative (Negative); RBC 0-2 HPF (0-2)
[2023-08-24] MEDS: Fosfomycin Tromethamine 3 GM PACKET PO (13:30)
--- NOTE | 2023-08-24 14:07 | NUR.NOTE ---
meal tray ordered Nursing Note:
[2023-08-24 15:54] LABS: COVID-19 PCR Negative (Negative); Influenza A PCR Negative (Negative); Influenza B PCR Negative (Negative); RSV PCR Negative (Negative)
[2023-08-24 15:56] LABS: Source Nasopharynx
[2023-08-24] MEDS: Acetaminophen 325 MG TAB PO (16:17)
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
[2023-08-24] MEDS: metFORMIN 500 MG TAB 1000 MG PO (17:30)
[2023-08-24] MEDS: Enoxaparin 40 MG/0.4 ML SYR SC (17:31)
[2023-08-24] MEDS: Normal Saline Flush 10 ML SYR IVP (20:10)
[2023-08-24] MEDS: Lidocaine 5% Patch 1 PATCH TP (20:11)
[2023-08-24] MEDS: Doxepin 50 MG CAP 200 MG PO (22:42)
[2023-08-24] MEDS: Gabapentin 600 MG TAB PO (22:42)
[2023-08-25 07:46] LABS: Anion Gap 4.5 mmol/L (3-11); BUN 8 mg/dL (7-18); CO2 29.5 mmol/L (21.0-32.0); CREATININE 0.6 mg/dL (0.55-1.02); Calcium 9.8 mg/dL (8.5-10.1); Chloride 103 mmol/L (98-107); Estimated GFR 102.69 (mL/min/1.73m2); Ferritin 8 ng/mL (8-252); Folate 4.9 ng/mL (8.6-20.0); Glucose 96 mg/dL (74-106); Magnesium 1.8 mg/dL (1.8-2.4); Potassium 3.8 mmol/L (3.5-5.1); Sodium 137 mmol/L (136-145); Vitamin B12 170 pg/mL (193-986)
[2023-08-25 08:00] LABS: Iron 11 ug/dL (50-170); Total Iron Binding Capacity 359 ug/dL (250-450); Transferrin Sat 3 % (15-50)
[2023-08-25] MEDS: ARIPiprazole 5 MG TAB 10 MG PO (08:01)
[2023-08-25] MEDS: metFORMIN 500 MG TAB 1000 MG PO ×2 (08:05→16:55)
[2023-08-25] MEDS: Patch Removal 1 EACH TP (08:05)
[2023-08-25] MEDS: Lisinopril 5 MG TAB PO (08:05)
[2023-08-25] MEDS: HYDROmorphone 2 MG TAB PO ×3 (08:06→19:27)
[2023-08-25] MEDS: hydroCHLOROthiazide 12.5 MG TAB 6.25 MG PO (08:06)
[2023-08-25] MEDS: Cyanocobalamin 1000 MCG/ML VIAL IM/SC (08:17)
[2023-08-25] MEDS: Fenofibrate, Micronized 48 MG TAB PO (08:17)
[2023-08-25] MEDS: Cyanocobalamin 500 MCG TAB 1000 MCG PO (08:17)
[2023-08-25] MEDS: Folic Acid 1 MG TAB PO (08:17)
[2023-08-25] MEDS: Ketoconazole 2% CREAM 15 GM TUBE TP (08:18)
[2023-08-25] MEDS: Normal Saline Flush 10 ML SYR IVP ×2 (08:18→19:25)
[2023-08-25] MEDS: Tiotropium Bromide-Respimat 10 PUFF INH 2 PUFF IH (08:28)
[2023-08-25] MEDS: Budesonide/Formoterol 80/4.5 6.9 GM 60 PUFF INH IH (08:29)
[2023-08-25 08:31] VITALS: BP 145/77; PULSE 99; RESP 19; TEMP 36.9; O2SAT 91
[2023-08-25] MEDS: Acetaminophen 325 MG TAB PO ×2 (08:34→17:58)
[2023-08-25] MEDS: ARIPiprazole 15 MG TAB 30 MG PO (08:34)
[2023-08-25] MEDS: Gabapentin 600 MG TAB PO ×2 (09:17→19:26)
[2023-08-25] MEDS: Diclofenac Sodium 75 MG TABEC PO ×3 (09:20→19:27)
--- NOTE | 2023-08-25 10:25 | PT.INIE ---
PT Notes Visit Reasons: acute on chronic back pain, amb. dysfunction Inpatient Physical Therapy Evaluation Date: 08/25/23 Referring Doctor: Dr. Cardenas PT Orders: PT CONSULT: limited ability to ambulate Precautions: fall Patient Profile/Admitting Diagnosis: Patient admitted 08/24/23 from ED after fall at home. Patient endorses multiple falls (approx 6 in the past several weeks), most recently falling when trying to stand from toilet. Long history of LBP and sciatica, with h/o lumbar fusion 2017 and notes from [facility] noting severe L4-5 right foraminal stenosis. She is additionally s/p right hip surgery x 3, including NAN. Admitted on observation status, with scheduled MRI for Saturday08/26/23. Social History/Home Situation: Chapis lives in a private home with her mother. She has been receiving HH PT for the past 2 weeks. Utilizes 4WW for ambulation in the home, with h/o multiple falls. States that she is extremely fearful of falling, and spends most of her day on the couch. She sleeps on the couch due to inability to manage stairs. Requires use of leg auto painter helper to lie down and get up from couch. Equipment Owned/DME: FWW Subjective: Patient reports fall at home occurring when trying to stand from toilet. States that she had her 4WW there, but that her legs just gave out. She was evaluated by myself in the ED yesterday, at which time she was unable to ambulate and required assistance for all transfers. Rates her pain as 8/10 in RLE (references L4 pattern). Objective: General Observation: Resting in bed. Villatoro catheter in place. IV in RUE. Mental Status: A&O3. Pleasant and coorative during session. ROM: Right Upper Extremity: WFL Left Upper Extremity: WFL Right Lower Extremity: Hip flexion 95* with moderate reduction in RLE pain. Hip AB to 30*. Knee flexion to 110*. Knee extension +10. Left Lower Extremity: Hip flexoin 100*. Hip AB 30*. Knee motion 0-110*. Strength: Right Upper Extremity: WFL Left Upper Extremity: WFL Right Lower Extremity: Hip flexion 3-/5. Quads 3/5. Functionally unable to perform SLR. Ankle DF 4/5. EHL 3/5. Left Lower Extremity: Hip flexion 3-/5. Quads 3/5. Functionally unable to perform SLR. Ankle DF 4/5. EHL 3/5. Bed Mobility/Transfers: supine-sit: mod A to LEs sit-supine: mod A to LEs. Requires cues for sit-sidelying, and able to roll sidelying to supine with SBA. sit-stand: CGA, with heavy reliance on UE support to FWW in forward flexed standing position stand-sit: CGA Gait: Ambulates 6'x2 with FWW, CGA. Balance: Static Sitting: good Dynamic Sitting: fair Static Standing: fair Dynamic Standing: poor Special Tests: Mobility Limitations Standardized Measure [facility] AM-PAC 6 clicks Basic Mobility Inpatient Short Form: Raw Score: 16 CMS Score: 54% impairment Informed Consent/Education: Patient instructed in purpose of PT consult and plan of care. Therapeutic Exercises ([id number]): AA heel slides, 10x each ankle pumps 10x seated LAQ 10x each sit-stand 3x Assessment: Patient is a 62 year old female referred to physical therapy services during acute care stay for management of acute on chronic back pain with radiculopathy after fall at home. She is demonstrating improved mobility vs her presentation yesterday, although continues to have severe impairments in bed mobility and ambulation. She responds favorably to flexion based movement patterns, and reported improved pain symptoms after short distance ambulation. She requires skilled PT intervention to address mobility impairments. May require brief SNF stay if not making dramatic improvements in mobility. Goals will reflect efforts to return to community with PT, as per baseline. She currently demonstrated by the following impairment level findings: 1. decreased LE strength bilat 2. decreased activity tolerance 3. poorly controlled pain Impairments are contributing to the following functional limitations: 1. unable to ambulate independently 2. unable to perform bed mobility independently 3. unable to transfer independently Patient is assessed as yonathan [id number] complexity based on the following: History: Patient is a 62 year old female with h/o chronic back pain with radicular symptoms, presenting with worsening mobility resulting in fall at home. She presents with significant LE weakness and poorly controlled pain resulting in inability to independently transfer or ambulate. No significant complicating factors. Examination: functional limitations as noted above Presentation: evolving Decision Making: low complexity Goals: 7 days supine-sit: supervision sit-supine: supervision sit-stand: supervision stand-sit: supervision Gait: able to ambulate 50' with FWW and SBA Plan of Care/Treatment Plan: 1-2x/day, 7 days/week x 1 week. Plan of care has been reviewed with the WEB PRODUCTION DESIGNER providing the service under Physical Therapy direction. Initiate Physical Therapy intervention for strengthening, bed mobility, transfers, gait, stairs, balance training, use of assistive device. DISCHARGE RECOMMENDATIONS: Home with home health vs SNF. Will continue monitoring mobility for discharge planning. TREATMENT CODE/TIME: 48820 ([id number]) Thank you for this referral! Rosa Maria Maldonado, PT, DPT [facility] Please sign an return this page within 30 days if you agree with the above POC. Thank you! Physician Signature Date [facility]
--- NOTE | 2023-08-25 14:27 | W.PM.PROGNOT ---
Date of Service Date of service: 08/25/23 Time of Service: 14:27 Assessment and Plan Assessment and plan (1) Lumbar spinal stenosis: Status: Chronic Assessment and plan: adjustments to pain regimen included increased gabapentin dose, lidocaine patch and added one extra dose of hydromorphone increasing from 2 mg bid to tid prn continue heat. fentanyl patch unchanged dose Will plan for MRI lumbar spine on Saturday. discontinue paige catheter as she is safely reambulating (2) Multiple falls: Status: Acute Assessment and plan: fall precautions. advanced imaging pending for tomorrow PT eval (3) Ambulatory dysfunction: Status: Acute Assessment and plan: As above (4) Chronic back pain: Status: Chronic Assessment and plan: as above (5) Tinea pedis: Status: Acute Assessment and plan: treat with topical ketoconazole (6) DVT prophylaxis: Status: Acute Assessment and plan: SC enoxaparin (7) Discharge planning issues: Status: Acute Assessment and plan: Full code anticipate discharge to home with services vs skilled rehabilitation discussed with DR Cardenas Subjective Subjective Interval history since last seen: pain much better, safely re-ambulating. states she is eating and drinking well. no constipation. Exam Const General: cooperative, healthy appearing, comfortable and no acute distress Nutritional Appearance: overweight Orientation: alert, awake and oriented x3 HENMT Head: normal to inspection, normocephalic and atraumatic Face and sinus: normal facial exam Mouth: oral mucosae normal Chest Chest: normal inspection of the chest Cardio Rate: regular rate GI Inspection: normal to inspection Skin General skin exam: no rashes or lesions noted Neuro General: patient alert, patient awake, patient oriented x3, tone normal and moves all extremities Extrem General: normal to inspection and full ROM Objective Last Vital Signs Temp 36.9 C 08/25/23 08:31 Pulse 99 H 08/25/23 08:31 Resp 19 08/25/23 08:31 BP 145/77 H 08/25/23 08:31 Pulse Ox 91 L 08/25/23 08:31 Laboratory Results - last 24 hr 08/24/23 08/25/23 15:15 06:00 Sodium 137 Potassium 3.8 Chloride 103 Carbon Dioxide 29.5 Anion Gap 4.5 BUN 8 Creatinine 0.6 Est GFR (CKD-EPI 2020) 102.69 Glucose 96 Calcium 9.8 Magnesium 1.8 Iron 11 L TIBC 359 Transferrin % Sat 3 L Ferritin 8 Vitamin B12 170 L Folate 4.9 L COVID-19 Source Nasopharynx SARS-CoV-2 (PCR) Negative Influenza Type A (PCR) Negative Influenza Type B (PCR) Negative RSV (PCR) Negative Time Spent with Patient Time Spent with Patient: 35-49 minutes Time was spent: preparing to see the patient(eg.review tests), obtaining and/or reviewing separately otained hiistory, ordering medications,tests, procedures, indepentently interpreting results and counseling the patient
[2023-08-25 15:07] VITALS: BP 128/71; PULSE 82; RESP 18; TEMP 36.6; O2SAT 97
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
[2023-08-25] MEDS: Enoxaparin 40 MG/0.4 ML SYR SC (17:58)
[2023-08-25] MEDS: Lidocaine 5% Patch 1 PATCH TP (19:23)
[2023-08-25] MEDS: Doxepin 50 MG CAP 200 MG PO (19:26)
[2023-08-25] MEDS: Simvastatin 20 MG TAB PO (19:26)
[2023-08-25 21:25] VITALS: BP 112/64; PULSE 82; RESP 18; TEMP 36.8; O2SAT 98
[2023-08-26] MEDS: HYDROmorphone 2 MG TAB PO ×2 (03:09→09:46)
[2023-08-26] MEDS: Acetaminophen 325 MG TAB PO ×2 (03:09→11:46)
[2023-08-26 07:02] LABS: Platelet Count 459 10^3/uL (130-400)
[2023-08-26 07:19] LABS: Hemoglobin A1C 5.1 % (<5.7)
[2023-08-26 07:25] VITALS: BP 130/81; PULSE 71; RESP 17; TEMP 36.6; O2SAT 98
[2023-08-26] MEDS: Tiotropium Bromide-Respimat 10 PUFF INH 2 PUFF IH (07:28)
[2023-08-26] MEDS: Budesonide/Formoterol 80/4.5 6.9 GM 60 PUFF INH IH (07:28)
[2023-08-26] MEDS: Ketoconazole 2% CREAM 15 GM TUBE TP (07:29)
[2023-08-26] MEDS: Insulin Aspart 300 UNITS/3 ML PEN SC (07:30)
[2023-08-26] MEDS: Fenofibrate, Micronized 48 MG TAB PO (07:34)
[2023-08-26] MEDS: hydroCHLOROthiazide 12.5 MG TAB 6.25 MG PO (07:34)
[2023-08-26] MEDS: Diclofenac Sodium 75 MG TABEC PO (07:34)
[2023-08-26] MEDS: metFORMIN 500 MG TAB 1000 MG PO (07:35)
[2023-08-26] MEDS: Cyanocobalamin 500 MCG TAB 1000 MCG PO (07:35)
[2023-08-26] MEDS: ARIPiprazole 15 MG TAB 30 MG PO (07:35)
[2023-08-26] MEDS: Folic Acid 1 MG TAB PO (07:35)
[2023-08-26] MEDS: Gabapentin 600 MG TAB PO (07:35)
[2023-08-26] MEDS: Lisinopril 5 MG TAB PO (07:35)
[2023-08-26] MEDS: ARIPiprazole 5 MG TAB 10 MG PO (07:35)
[2023-08-26] MEDS: Patch Removal 1 EACH TP (07:36)
[2023-08-26] MEDS: Normal Saline Flush 10 ML SYR IVP (07:36)
--- NOTE | 2023-08-26 09:16 | PT.INTREAT ---
PT Notes Visit Reasons: acute on chronic back pain, amb. dysfunction Date: 08/26/23 Referring Doctor: Dr. Cardenas PT Orders: PT CONSULT: limited ability to ambulate Precautions: fall SUBJECTIVE: Pt in bed when approached for therapy this morning, pt agrees to participating with therapy, pt expresses concern about falling, and reports feeling very weak today prior to initiation of session. OBJECTIVE: ? PAIN: pt reports her knees are painful on the medial aspect, ankle and lowback ? BED MOBILITY/TRANSFERS? Supine-sit: min A? Sit-supine: mod A for BLE elevation to get centered in bed? Sit-stand: min A ? Stand-sit: cga ? Toilet seat: Stand-pivot transfer with FWW and Min A? ?stand to sit, min A for sit to stand ? GAIT? Assistive Device: FWW? Weight bearing: Full Assist: CGA ? Distance:? 15' to toilet ? Deviation: apprehensive verbally/physically, very limited requiring close contact guarding to improve pt confidence with activity. ? THEREX: Patient was instructed in a seated LE strengthening program in a.m., to include: ankle pumps, heel raises, LAQ, hip flexion and hip abduction.? she was instructed in a AROM supine UE and LE strengthening program, to include: bicep curls, shoulder flexion, shoulder abduction, triceps, IR/ER, ankle pumps, hip adduction, hip abduction and heel slides. ? ASSESSMENT:? Pt expresses she feels very weak, afraid to go home due to weakness, requires verbal and tactile cue to prevent pt from feeling like she is going to fall. PLAN: Continue with global strengthening and general conditioning for improved mobility and activity tolerance. TREATMENT CODE/TIME: 25 minutes; [id number], [id number] (8:50-9:15am) ? Session 2: 21 minutes; [id number] x2 (13:01)
[2023-08-26] MEDS: LORazepam 1 MG TAB PO (10:29)
--- NOTE | 2023-08-26 11:13 | W.NUTRFU ---
Date of service: 08/26/23
[2023-08-26] MEDS: fentaNYL 75 MCG PATCH TD (13:23)
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
--- NOTE | 2023-08-26 16:20 | CMDISCH_ITS ---
Date of service: 08/26/23 Time of Service: 16:21 LACE Index Scoring Tool Questions: Length of Stay (in days): 2 Was the patient admitted via the E.D.?: Yes Comorbidities: Chronic Pulmonary Disease E.D. Visits: 0 Answers: Total Score: 7 Risk of Readmission: Low Risk Care Management Discharge Plan Reason for Hospitalization: Acute on chronic back pain, ambulatory dysfunction Discharge Plan: Maryjane will return home via RCT private vehicle with a lift assist coordinated through [employer]. She verbalized concerns over her interaction with the provider and about returning home; CM provided patient education central to medical necessity and provision of outpatient services. She will follow up with her PCP and plan of care as prescribed and resume home health support as needed. She stated her mother and son were re-adjusting furniture in the home to support her return. Patient/Family Education Needs: Review discharge instructions, discuss Ask Me [employer]. [facility] Health Related Social Needs: No Data to Display
--- NOTE | 2023-08-31 09:19 | PDOC.CMPRO ---
Date of service: 08/31/23 Time of Service: 09:19 Care Management Progress Note Progress Note Text Progress Note Text: CM asked by ED provider to see patient . Maryjane presented to ED on
== END 2023-08-26 14:48 | disposition home or self-care (01) ==
LOC: ER 15:13 → MS 08-25 09:57
PROVIDERS: Family Medicine; Admitting Provider Internal Medicine; Emergency Provider Nurse Practitioner Family; PCP Family Medicine; Visit Provider Internal Medicine
DX: M48.061 Spinal stenosis, lumbar region without neurogenic claudication (principal); R29.6 Repeated falls; G89.29 Other chronic pain; B35.3 Tinea pedis; M54.50 Low back pain, unspecified; Z79.891 Long term (current) use of opiate analgesic; Z87.11 Personal history of peptic ulcer disease; Z96.641 Presence of right artificial hip joint; T84.328A Displacement of other bone devices, implants and grafts, initial encounter; R73.03 Prediabetes; R53.83 Other fatigue; I10 Essential (primary) hypertension; J44.9 Chronic obstructive pulmonary disease, unspecified; R74.01 Elevation of levels of liver transaminase levels; Z98.1 Arthrodesis status; K31.84 Gastroparesis; F32.A Depression, unspecified; F41.9 Anxiety disorder, unspecified; G47.9 Sleep disorder, unspecified; M17.12 Unilateral primary osteoarthritis, left knee; F17.210 Nicotine dependence, cigarettes, uncomplicated
CPT/HCPCS: 00123; 36415; 51702; 80048; 80053; 87077; 87637; 94640; 96365; 96372; 97110; 97161; 97162; 97530; 99285; J1650; 72131; 81003; 81015; 82607; 82728; 82746; 83036; 83540; 83550; 83735; 85025; 85049; 87086; 87186; 94664; 99223; 99233; 99238; G0378; J0131; J1815; J3420; J3490

== ENCOUNTER 2023-08-30 21:00 | Observation (INO) | payer MEDICARE, SELFPAY ==
[2023-08-30] VITALS (30 sets, daily range): BP systolic 102–144; BP diastolic 42–79; PULSE 68–124; RESP 12–24; TEMP 36.8; O2SAT 93–100
--- NOTE | 2023-08-30 20:45 | RT.EKG_ITS ---
APPROVED REPORT Exam: Resting ECG Reason for Exam: weakness Patient Location: E HR:93 bpm ECG Measurements Heart Rate 93 AXIS AZ 144 P 13 QRSd 94 QRS 19 QT 348 T 31 QTc 434 Conclusion Sinus rhythm...normal P axis, V-rate 60- 99 Supraventricular bigeminy...bigeminy string>4 w/ SV complexes Probable left atrial enlargement...P >50mS, <-0.10mV V1
[2023-08-30 21:31] LABS: Abs Immature Grans 0.03 10^3/uL (0.0-0.06); Absolute Basophil Count 0.05 10^3/uL (0.0-0.2); Absolute Eosinophil Count 0.45 10^3/uL (0.0-0.7); Absolute Lymphocyte Count 1.51 10^3/uL (1.2-3.4); Basophils % 0.7; Eosinophils % 6.1; HCT 33.4 % (36.0-46.0); Immature Grans % 0.4; Lymphocytes % 20.6; MCH 18.5 pg (27.0-33.0); MCHC 26.9 % (32.0-36.0); MCV 69 fL (80-95); MPV 9.3 fL (8.0-11.0); Monocytes % 5.4; Neutrophils % 66.8; Platelet Count 671 10^3/uL (130-400); RBC 4.86 10^6/uL (3.93-5.22); RDW 17.5 % (11.7-14.6); WBC 7.34 10^3/uL (4.4-10.8)
[2023-08-30 21:46] LABS: ALT 15 U/L (14-59); AST 11 U/L (15-37); Albumin 3.9 g/dL (3.4-5.0); Alkaline Phosphatase 63 U/L (46-116); Anion Gap 9.6 mmol/L (3-11); BUN 12 mg/dL (7-18); Bilirubin, Total 0.3 mg/dL (0.2-1.0); CO2 31.4 mmol/L (21.0-32.0); CREATININE 0.9 mg/dL (0.55-1.02); Calcium 10.5 mg/dL (8.5-10.1); Chloride 94 mmol/L (98-107); Estimated GFR 73.19 (mL/min/1.73m2); Glucose 112 mg/dL (74-106); Potassium 3.6 mmol/L (3.5-5.1); Sodium 135 mmol/L (136-145); Total Protein 7.6 g/dL (6.4-8.2)
--- NOTE | 2023-08-30 21:56 | DI.RAD_ITS ---
Exam(s) XR KNEE RT 3V AP,LAT,RAJ EXAM: XR KNEE RT 3V AP,LAT,RAJ CLINICAL HISTORY: right knee inj. TECHNIQUE: 2D digital imaging was performed. COMPARISON: CR XR knee RT 3V AP,lat,raj from 11/08/2018 CR XR STANDING ALIGNMENT from 07/02/2022 FINDINGS: 3 views Position alignment of the components of the prosthesis remain stable. No fracture or loosening evide nt. No evidence of osteomyelitis. IMPRESSION: No acute osseous findings in the right knee. Stable appearing knee prosthesis. DATA REPOSITORY: RADIATION DOSE DELIVERED:
[2023-08-30 21:58] LABS: Hypochromasia 2+; Microcytosis 2+; Poikilocytes 2+
--- NOTE | 2023-08-30 22:09 | DI.VRAD_ITS ---
PROCEDURE INFORMATION: Exam: XR Right Knee Exam date and time: 08/30/2023 9:48 PM Age: 62 years old Clinical indication: Injury or trauma; Fall; Blunt trauma; Injury date: 08/30/23; Injury details: Patient fell onto floor; Prior surgery; Surgery date: 6+ months; Surgery type: Knee replacement; Patient HX: Right knee injury; Additional info: Patient unable to bend knee, best images possible TECHNIQUE: Imaging protocol: Radiologic exam of the right knee. Views: 3 views. COMPARISON: CR XR knee RT 3V AP,lat,glendy 11/08/2018 7:38 PM FINDINGS: Bones/joints: Surgical changes of right total knee arthroplasty with no hardware complications. There is a small knee joint effusion. No acute fracture or dislocation. Soft tissues: Normal. IMPRESSION: No acute fracture or dislocation. Dictated and Authenticated by: Surjit Escalante MD. Ordering:VAL Kwong MD
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
[2023-08-31] VITALS (236 sets, daily range): BP systolic 90–119; BP diastolic 49–86; PULSE 71–106; RESP 13–25; TEMP 36.3; O2SAT 83–100
[2023-08-31] MEDS: HYDROmorphone 2 MG TAB PO ×4 (00:23→20:48)
[2023-08-31] MEDS: Gabapentin 300 MG CAP 600 MG PO ×3 (00:23→19:24)
[2023-08-31] MEDS: Doxepin 50 MG CAP 200 MG PO ×2 (00:24→20:51)
[2023-08-31 00:54] LABS: Bilirubin Negative (Negative); Blood Negative (Negative); Clarity Clear (Clear); Glucose Negative (Negative); Ketones Negative (Negative); Leukocyte Esterase Negative (Negative); Nitrite Negative (Negative); Specific Gravity 1.015 (1.005-1.025); Urobilinogen 0.2 mg/dL (Up to 0.2)
--- NOTE | 2023-08-31 07:57 | W.EDPROG ---
Date of service: 08/31/23 Time of Service: 07:58 Medical Decision Making I received signout on this 70-year-old female emergency department pending an evaluation with physical therapy, Occupational Therapy, and care management. She was discharged from the hospital last week. She cannot ambulate. Provider tried to transfer her to [facility]. She has not been accepted by the hospitalist team. Will update documentation following PT OT assessment. 8:36 AM Magda Duenas from care management is in to see the patient. I ordered the patient's home antihypertensives and her hydromorphone. 9:05 AM Patient has received outpatient prescriptions for Lidoderm patches and hydromorphone which she has not yet filled reportedly. Magda Duenas advises increasing PT from once up to 2-3 times per week. She also advises adding on occupational therapy for help with showering and providing the patient with a bedside commode. She will return once PT and OT have seen the patient. 9:15 AM Reportedly according to health community associate Nyla there is no Occupational Therapy on the weekend. 9:51 AM I spoke with Katia from physical therapy who reported that the patient was not safe for discharge. She reported that the patient was a heavy 3 person assist. Care management will return to see the patient. 11:42 AM I spoke with Dr. Kirkpatrick from the hospitalist team who was planning on touching base with care management. In the event that the patient's knee pain is a result of a ligamentous injury I ordered a knee immobilizer. 12:25 PM I spoke with Dr. Kirkpatrick again from the hospitalist team. He had spoken with Magda from care management. He did not agree to accept the patient for hospitalization. He felt that the patient would not qualify for inpatient hospitalization. I asked him to leave a note given physical therapy evaluation reporting that the patient was not safe for discharge. 1:30 PM I met with the patient and explained plan for discharge. I am waiting on a note from the hospitalist. Patient is a supportive mother was a bedside. 2:38 PM I spoke to the patient's son, Sony Palomo, by phone. He had been talking to home health all week. [phone]. 4:07 PM No active issues on my shift. Will sign patient out to Dr. Harris. Quality:[facility] Health Related Social Needs: No Data to Display Sign Out Sign Out Data: Sign Out Comment: back pain/spinal stenosis/deconditioning/ unable to ambulate safely : pending care management assessment and PT eval in the AM pending urinalysis baseline anemia Last updated by Elenita Espinal PA at 08/30/23 23:33 Sign Out Comment: No additional interventions needed throughout the night. Follow-up on PT OT eval in the a.m. Last updated by Alonso Garsia DO at 08/31/23 08:24 Discharge Plan Discharge Details Chief Complaint: Fall/Non TraumaCriteria Clinical Impression: Multiple falls, Acute pain of right knee Primary Care Provider: Shahzad Olivarez ED Provider: Eligio Dumont [place] Meds and New Rx's Prescriptions: Continued Stiolto Respimat 2.5-2.5 mcg/actuation mist 2 puff inhalation DAILY Qty: 4 11RF Hold Instructions: discuss with pcp doxepin 100 mg capsule 200 mg PO QHS Qty: 180 3RF simvastatin 20 mg tablet 20 mg PO DAILY Qty: 90 3RF fenofibrate nanocrystallized [Tricor] 48 mg tablet 48 mg PO DAILY Qty: 90 3RF aripiprazole [Abilify] 20 mg tablet 40 mg PO DAILY Qty: 180 4RF Trelegy Ellipta 100-62.5-25 mcg blister with device 1 inh inhalation DAILY Qty: 28 11RF lisinopril-hydrochlorothiazide 10-12.5 mg tablet 0.5 tab PO DAILY diclofenac sodium 75 mg tablet,delayed release (DR/EC) 75 mg PO BID PRN (Reason: back pain) Qty: 180 3RF metformin 1,000 mg tablet 1,000 mg PO BID Qty: 180 3RF fentanyl 75 mcg/hr patch 72 hour 1 patch transdermal Q72H MDD 1 patch Qty: 3 0RF acetaminophen 325 mg Tablet 650 mg PO Q4H PRN PRNQty: 90 0RF budesonide-formoterol [Symbicort] 80-4.5 mcg/actuation Hfa Aerosol Inhaler 2 puff inhalation BID Qty: 0 0RF Spiriva Respimat 2.5 mcg/actuation Mist 2 puff inhalation BID Qty: 0 0RF gabapentin 600 mg tablet 600 mg PO BID Qty: 0 0RF Rx Instructions: dose increase 10/16/22 hydromorphone 2 mg tablet 2 mg PO TID MDD 2 TABS Qty: 6 0RF
[2023-08-31] MEDS: Tiotropium Bromide-Respimat 10 PUFF INH 2 PUFF IH (08:20)
[2023-08-31] MEDS: metFORMIN 500 MG TAB 1000 MG PO ×2 (08:21→17:25)
[2023-08-31] MEDS: Acetaminophen 500 MG TAB 1000 MG PO (08:22)
--- NOTE | 2023-08-31 09:22 | CMPROGNOTE_ITS ---
Date of service: 08/31/23 Time of Service: 09:22 Care Management Progress Note Progress Note Text Progress Note Text: CM was asked by ED provider to see patient. Maryjane is a 62 year old woman with chronic back pain and spinal stenosis who has been experiencing frequent falls at home. Most recently she was discharged from [facility] after a 2 day Observation stay (08/24/23-08/26/23) for the same issues. Her pain medicine regimen was adjusted and included an increase in Gabapentin to 600 mg bid, addition of Lidocaine patches and increase in Dialudid from 1-2 mg bid to 2 mg tid. She was discharged home on 08/26/23 with a 2 day supply of additional Dilaudid and a prescription for Lidocaoine patches. Maryjane admits that she did not fill the prescriptions so has not emilia receiving the meds at home. CM explained to Maryjane that there did not appear to be a medical reason to admit her and that if she were admitted, insurance might not cover the cost. Maryjane asked about SNF, CM explained that insurance would not cover the cost because she has not had a qualifying 3 night hospital stay.She would have to pay out of pocket for rehab. Maryjane lives at home with her mother. She stated several times that she does not want her mother to have to take care of her. When asked what care she requires, she stated that although she can dress, toilet and feed herself, she needs help with meal preparation. CM suggested Meals on Wheels and Maryjane informed CM that she already receives MOW, its just that sometimes she cant stand and wait at the microwave and then her mother needs to bring it to her. She was also concerned that her mother might have to empty her commode if she got one.CM inquired if her mother was fairly independent and Maryjane stated that she is independent and continues to drive. If discharged home, CM suggested: 1. Fill prescriptions for Lidocaine and higher dose gabapentin 2. Get a commode and keep it near to reduce the amount of walking needed. 3. Increase home health PT to at least 2-3 times a week and add OT 4.Consider getting a wheelchair 5.Complete an application for Patient Financial Assistance (provided by CM)
--- NOTE | 2023-08-31 09:53 | PT.ERNOTE ---
PT Emergency Department Note Patient Location: Emergency Room Referring Provider: Dr. Eligio Dumont PT Diagnosis: Frequent falls, chronic LBP, impaired mobility and safety MD Diagnosis: Evaluate for ambulatory status Date of Service: August 30, 2023 21:00 Precautions: Fall risk Patient Profile/Admitting Diagnosis:? The patient is a 62 yo female who came to the ED 08/30/23 s/p fall at home. Previously adm to hospital 08/24/23 to 08/26/23 secondary to falls at home. Patient reports her right LE just gives out. Lives with her 82 yo mom in [place]. Has a 4 wheeled rolling walker at home. No commode. Reports she just sponge bathes. Reports she has HHPT. Reported to case management that she has MOW. Says she has been having more difficulty at home and that she planned to have her son drive her to the ED [place] [facility] at 8 am for evaluation by her normal providers for her spine. She reports sometimes she is able to sit on the seat of her walker and cook on the stove. Reports she is normally able to walk from her bedroom to the bathroom. Past Medical History: COPD (chronic obstructive pulmonary disease) ULCER/STOMACH SURGERY (esophagogastroduodenoscopy) [place] Replacement of total knee joint (04/17/17) RIGHT/ Total replacement of hip 2006 [facility] [place] HORSE ACCIDENT SURGERY 10/2014 LEFT KNEE; 01/2015 RIGHT KNEE Cholecystectomy (~06/2013) Prediabetes Lumbar spinal stenosis Morbid obesity Essential hypertension L knee OA Tobacco use disorder Sleep disturbance (Chronic 07/18/05) Sedative, hypnotic or anxiolytic abuse (Chronic) ? GRAND MAL SEIZURE, SECONDARY TO BENZO WITHDRAWAL 2006; one episode without any recurrence; occurred due to anxiety prior to incarceration Injury of head (Chronic 11/16/06) History of back surgery (Chronic 10/17/17) L5-S1 facetectomy and lumbar body fusion Magnadottir UVN Gastroparesis (Chronic 07/18/05) Gastric ulcer (Chronic 08/18/05) 08/24 EGD: DUODENITIS; REACTIVE GASTROPATHY; ANTRAL ULCERATION; HYPERPLASTIC SQUAMOUS MUCOSA;NEG H. PYLORI Depression (Chronic 07/18/05) history of 7 psych admissions 2009 Chronic back pain (Chronic 06/30/14) Anxiety (Chronic 07/18/05) Medications: Home Medications Medication Instructions Recorded Confirmed tiotropium 2.5 mcg-olodaterol 2.5 2 puff inhalation DAILY #4 grams 10/02/21 08/30/23 mcg/actuation mist for inhalation (Stiolto Respimat) doxepin 100 mg capsule 200 mg (2 x 100 mg) PO QHS #180 09/26/22 08/30/23 caps fenofibrate nanocrystallized 48 mg 48 mg PO DAILY #90 tabs 09/26/22 08/30/23 tablet (Tricor) simvastatin 20 mg tablet 20 mg PO DAILY #90 tab-caps 09/26/22 08/30/23 aripiprazole 20 mg tablet (Abilify) 40 mg (2 x 20 mg) PO DAILY #180 10/20/22 08/30/23 tabs fluticasone fur. 100 mcg-umeclid 1 inh inhalation DAILY #28 ea 07/16/23 08/30/23 62.5 mcg-vilant 25 mcg inhalat.powder (Trelegy Ellipta) lisinopril 10 0.5 tab PO DAILY 08/13/23 08/24/23 mg-hydrochlorothiazide 12.5 mg tablet diclofenac sodium 75 mg 75 mg PO BID PRN back pain #180 08/21/23 08/30/23 tablet,delayed release tab-caps acetaminophen 325 mg tablet 650 mg (2 x 325 mg) PO Q4H PRN PRN 08/26/23 08/30/23 #90 tabs budesonide-formoterol HFA 80 2 puff inhalation BID #0 grams 08/26/23 08/30/23 mcg-4.5 mcg/actuation aerosol inhaler (Symbicort) gabapentin 600 mg tablet 600 mg PO BID #0 tabs 08/26/23 08/30/23 hydromorphone 2 mg tablet 2 mg PO TID #6 tabs 08/26/23 08/30/23 tiotropium bromide 2.5 2 puff inhalation BID #0 grams 08/26/23 mcg/actuation mist for inhalation (Spiriva Respimat) fentanyl 75 mcg/hr transdermal 1 patch transdermal Q72H #3 ea 08/28/23 08/30/23 patch metformin 1,000 mg tablet 1,000 mg PO BID #180 tabs 08/28/23 08/30/23 Previous Rx's Medication Instructions Recorded tiotropium 2.5 mcg-olodaterol 2.5 2 puff inhalation DAILY #4 grams 10/02/21 mcg/actuation mist for inhalation (Stiolto Respimat) doxepin 100 mg capsule 200 mg (2 x 100 mg) PO QHS #180 09/26/22 caps fenofibrate nanocrystallized 48 mg 48 mg PO DAILY #90 tabs 09/26/22 tablet (Tricor) simvastatin 20 mg tablet 20 mg PO DAILY #90 tab-caps 09/26/22 aripiprazole 20 mg tablet (Abilify) 40 mg (2 x 20 mg) PO DAILY #180 10/20/22 tabs fluticasone fur. 100 mcg-umeclid 1 inh inhalation DAILY #28 ea 07/16/23 62.5 mcg-vilant 25 mcg inhalat.powder (Trelegy Ellipta) diclofenac sodium 75 mg 75 mg PO BID PRN back pain #180 08/21/23 tablet,delayed release tab-caps acetaminophen 325 mg tablet 650 mg (2 x 325 mg) PO Q4H PRN PRN 08/26/23 #90 tabs budesonide-formoterol HFA 80 2 puff inhalation BID #0 grams 08/26/23 mcg-4.5 mcg/actuation aerosol inhaler (Symbicort) gabapentin 600 mg tablet 600 mg PO BID #0 tabs 08/26/23 hydromorphone 2 mg tablet 2 mg PO TID #6 tabs 08/26/23 tiotropium bromide 2.5 2 puff inhalation BID #0 grams 08/26/23 mcg/actuation mist for inhalation (Spiriva Respimat) fentanyl 75 mcg/hr transdermal 1 patch transdermal Q72H #3 ea 08/28/23 patch metformin 1,000 mg tablet 1,000 mg PO BID #180 tabs 08/28/23 Spoke with case management who reports she was given prescriptions for lidocaine patches, gabapentin and dilaudid during her recent admission to assist with the pain, but she did not fill any of these prescriptions. Allergies Allergy/AdvReac Type Severity Reaction Status Date / Time No Known Drug Allergies Allergy Unknown Unverified 08/30/23 20:57 Subjective: Reports no increased back pain or pain in her LE since her fall yesterday. Objective: Spoke with Case management and Dr. Dumont after this evaluation of my findings. Mental Status: Patient is alert and oriented. Pain: No c/o pain or grimacing during today's session Vital Signs: Monitored by nursing. Patient was using 1.5 l/min 02 at time of this evaluation. Reports she does not usually use home O@ ROM/Strength: Upper extremities: WNL. My arms are strong. Lower extremities: Able to perform active quad sets bilaterally. Unable to perform active heel slide or straight leg raise bilaterally. 3/5 right long arc quad while sitting on the commode. Sensation: Reports tingling in her right lateral thigh and leg, but reports this is not new. Soft tissue/edema: Bilateral LE observed. Bed Mobility: sit to supine onto gurney with max/dependent x 2. Transfers: Sit to stand mod assist from commode with cuing to use UE and left LE to support right LE. SPT with walker to [place] and upon lining up with gurney, patient stopped weight bearing through either extremity despite cuing and left LE blocked by PT to prevent from sliding to the floor. Assisted back onto gurney as above. Gait: n/a Balance: unsafe to consistently stand with walker without assist [facility] AM-PAC 6 clicks Basic Mobility Inpatient Short Form: Raw Score:??10? CMS Score:76.75% disability Informed Consent/Education:? Patient instructed in purpose of PT consult and plan of care and is agreeable Assessment:? Patient is a? 62 year old female who came to the ED 08/30/23 s/p fall at home who is currently unable to independently mobilize as needed for home with her 82 yo mother.? Patient presents with low back and right LE pain (though not reported during today's session), decreased strength, decreased functional mobility, decreased balance and difficulty with ambulation. The patient would benefit from skilled PT services to improve these impairments to maximize function and safety. Patient is assessed as:? High 60651 complexity based on the following: History: duration of symptoms, overweight, home environment, chronic back pain, depression, anxiety Examination: see above Presentation: Unstable/unpredictable ? Decision Making:? High (3-4 history, 4+ exam, unstable, challenging- 45 mins) Physical Therapy Goals: 1 week Able to get in/out of bed with supervision only. Able to perform sit to/from stand with supervision only. Able to 20 walk feet with rolling walker with supervision only. Able to go up and down 2-3 steps with 1 rail with contact guard assist only. Independent with home exercise program Plan of Care/Treatment Plan: 1-2x/day, 7 days/week x 1 week. Plan of care has been reviewed with the ORTHODONTIST providing the service under Physical Therapy direction. Initiate Physical Therapy intervention for strengthening, bed mobility, transfers, gait, stairs, balance training, use of assistive device. DISCHARGE RECOMMENDATIONS: May need Level 1 Billing Charges: Treatment Units Time Duration Manual Therapy(60730) Hands-on techniques to modulate pain increase joint range of motion reduce or eliminate soft tissue swelling, inflammation, or restriction facilitate relaxation and improve contractile and non-contractile tissue extensibility ? ? Therapeutic Procedures (55027) Instruction in therapeutic exercises to develop strength and endurance, range of motion and flexibility. HEP instruction and review: Provided skilled instruction in proper exercise performance: Provided skilled manual cues to facilitate proper muscle recruitment and/or movement pattern Neurological Re-Education(64754) To improve balance, coordination, kinesthetic and proprioceptive sensations. ? ? Ultrasound(00039) To promote healing. ? ? Gait Training(74040) ?0 6 ? Therapeutic Activity(20452) Instruction in dynamic activities with one on one patient contact by the provider to improve functional performance as follows: ? ? Self Care Training(59150) ? ? E-Stim (Attended)(02896) ? ? Low IE(16381) Mod IE(86235) ? ? High IE(44419) ?1 ?26 Time Coded Treatment Time ? 6 Total Treatment Time ? 26
--- NOTE | 2023-08-31 15:10 | W.MEDCONSULT ---
Date of service: 08/31/23 Time of Service: 15:11 Assessment and Plan Assessment and plan (1) Acute pain of right knee: Status: Acute Assessment and plan: xray of the right knee did not show any fractures nor any evidence for loosening of the hardware. Patient wearing a knee immobilizer for comfort and stability. I would try NSAID (oral and topical to the knee), continue lidocaine patches for her back along w/ gabapentin and fentanyl patch and dilaudid prn for breakthrough pain. Per nursing, she was really affected by the 2 mg dilaudid. Perhaps just 1 mg dilaudid 3 to 4 times per day as needed, while her gabapentin dose is adjusted and she may need an increase in her fentanyl patch. She would benefit from a Pain Management consult. her right hip muscle group weakness may from her radiculopath and may not improve w/ pain control or skilled P.T. She reportedly has an upcoming appointment w/ the spine surgeon in September. I spoke w/ her son who lives in [place]. He has even indicated a willingness to drive her to [facility] to see her specialist there. for the knee, I do not think she tore any ligaments. She has no bruising and no effusion. If knee pain is not improving then an MRI of the knee would be reasonable. We have no ortho coverage for next few days. As for hospitalization, she may benefit from titration of her pain meds under supervision, however, we do not have the specialists in house to deal w/ any spine surgery or in house pain consultants. She could be referred to Dr. Morales as an outpatient. She would benefit from increased home health services including P.T. and O.T. 3 x per week. She does not seem to have a diagnosis which would qualify her for inpatient admission let alone a required 3 night stay in order for Medicare to cover her for senior care stay. She would need a home wheel chair and bedside commode to accomodate her needs at present. I spoke w/ her son, he indicated that his grandmother does not drive after dark and therefore the patient will likely need to stay for the night. (2) Ambulatory dysfunction: Status: Acute (3) Multiple falls: Status: Acute (4) Lumbar spinal stenosis: Status: Chronic Qualifiers: Neurogenic claudication status: without neurogenic claudication Qualified Code(s): M48.061 - Spinal stenosis, lumbar region without neurogenic claudication History of Present Illness History of Present Illness Chief Complaint: frequent falls, right knee pain, inability to ambulate Narrative: Ms Cline is a 62 yr old female w/ hx of chronic lower back pain d/t lumbar spinal stenosis w/ L5 radiculopathy to the right leg, s/p prior back surgeries, and scoliosis, s/p hip replacement x 3 which has left her w/ left leg longer than the right necessitating use of a shoe lift. She was hospitalized @ [facility] 08/24-08/26/23 after a series of falls at home leadinig to increasing lower back pains. Patient is under pain management contract w/ her PCP, Dr. Shahzad Olivraez. Her pain meds include fentanyl patch and oral dilaudid. During this hospital stay a CT of her lower back was performed and demonstrated Postsurgical changes of the posterior L5-S1 instrumentation as well as L5-S1 S1 discectomy, right L5 pedicle screw extends beyond the borders of the superior aspect of the left pedicle, there is lucency seen around the right S1 pedicle screw suggestive of loosening of the screw, multilevel degenerative changes causing central spinal canal stenosis at L3-4 and L4-L5 no acute fractures or subluxation. After P.T. evaluation of the patient in the ED and determination that she could safely ambulate she was admitted to the hospitalist service on observation status. While hospitalized her pain medications were adjusted: gabapentin increased to 600 mg bid, lidocaine patches were added, dilaudis was increased from 1 to 2 mg bid to 2 mg tid. P.T. was consulted while she was on observation status (see P.T. notes 08/25 and 08/26/23. Patient was able to ambulate up to 15 ft w/ FWW w/ only CGA but required much encouragement as she was afraid of falling. As her pain was under better control she was dc home for outpatient follow up w her PCP and for home P.T to continue to work w/ her. She returns to the E.D. last night after recurrent fall at home w/ a twisting of her knee and she complains of right knee pain (same one which has had TKA) as well as leg weakness and inability to ambulate herself even w/ her walker. She was treated in the E.D.with her hydromorphone, and gabapentin and tylenol. Physical therapy and credit administration manager and myself were asked by the ED provider to evaluate the patient. See Magda Ortega's notes regarding patient home conditions and resources. Patient is cared for by her 82 yr old mother w/ assistance of home health agency w/ home P.T. and Meals on Wheels. P.T. evaluation was completed in the E.D See her note for details. PT reported patient is 2 person max assist to get her from sit to supine onto guerney after patient had gone from sit to stand w/ moderate assist from commode using walker. Patient exhibited ability to perform active quad sets bilaterally but was unable to perform active heel slide or SLR biaterally. PFSH All Active Problems (Updated 08/31/23 @ 21:23 by Rom Carrillo) Hyponatremia (Acute) Hypercalcemia (Chronic) Type 2 diabetes mellitus (Chronic) Microcytic anemia (Chronic) Chronic right-sided lumbar radiculopathy (Acute) Acute pain of right knee (Acute) Tinea pedis (Acute) Ambulatory dysfunction (Acute) Multiple falls (Acute) Prediabetes (Acute) Cellulitis (Acute) Lumbar spinal stenosis (Chronic) Hip abductor tendinitis (Acute) Pain in left hip (Acute) COVID-19 (Acute) Fatigue (Acute) Left sided sciatica (Acute) Morbid obesity (Acute) Essential hypertension (Acute) Chronic bilateral low back pain without sciatica (Acute) History of arthroscopy of right knee (Acute 11/08/14) History of cholecystectomy (Acute) History of esophagogastroduodenoscopy (Acute) History of hip replacement (Acute) History of surgical procedure (Acute) Primary osteoarthritis of left knee (Chronic) Hip pain (Acute) COPD (chronic obstructive pulmonary disease) (Chronic) Weight disorder (Chronic) UP AND DOWN Transaminase or LDH elevation (Chronic) Tobacco use disorder (Chronic) Sleep disturbance (Chronic 07/18/05) Sedative, hypnotic or anxiolytic abuse (Chronic) [facility]; ? GRAND MAL SEIZURE, SECONDARY TO BENZO WITHDRAWAL 2006; one episode without any recurrence; occurred due to anxiety prior to incarceration Pneumonia (Acute) Malnutrition (Acute) Injury of head (Chronic 11/16/06) History of back surgery (Chronic 10/17/17) L5-S1 facetectomy and lumbar body fusion Magnadottir UVN Gastroparesis (Chronic 07/18/05) Gastric ulcer (Chronic 08/18/05) 08/24 EGD: DUODENITIS; REACTIVE GASTROPATHY; ANTRAL ULCERATION; HYPERPLASTIC SQUAMOUS MUCOSA; NEG H. PYLORI Depression (Chronic 07/18/05) history of 7 psych admissions 2009 Chronic back pain (Chronic 06/30/14) Anxiety (Chronic 07/18/05) Medical History COPD (chronic obstructive pulmonary disease) Surgical History [place]OM[place] Replacement of total knee joint (04/17/17) RIGHT/ Total replacement of hip [place] [facility] HORSE ACCIDENT KNEE SURGERY 10/2014 LEFT KNEE; 01/2015 RIGHT KNEE EGD - [facility] Cholecystectomy (~06/2013) Family History Mother Essential hypertension Hyperlipidemia Stroke Grandfather Essential hypertension Stroke Father No problems noted. Grandmother Essential hypertension Stroke Grandfather Essential hypertension Stroke Grandmother No problems noted. Son No problems noted. Son No problems noted. Social History Smoking/Tobacco Use Status: Former Tobacco Use Quit Date: 08/19/18 Second Hand Exposure: No Smoking risk assessment performed?: Yes Alcohol Intake: never Drug use: Never Substance use type: does not use Household members: family Housing: apartment Communication Needs: None Pets and animals: Yes Pets and animals: dog(s) Sexually active: No Do you think of yourself as: straight/heterosexual What is your relationship status?: How often do you talk on the phone with friends or family?: three or more times per week How often do you get together with friends or relatives?: decline to answer How often do you attend gnosticist or taoism services?: 1-3 times per year Do you belong to any clubs or organized social groups?: no Panel score (0-1 are the most socially isolated patients): 1 What type of physical activity do you participate in: none [employer]ki/[employer] Seatbelt use: always Drive intox or ride w/intox team driver: No Do you feel safe at home: Yes Do you feel safe in your relationship?: Yes Additional Social history: The patient is . Has 2 children. 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 She has a [id number]-year history of smoking, currently ongoing. Denies any current illicit drug or alcohol use, but previously used and sold narcotics. Exam Narrative Exam Narrative: Patient was fearful at first of attempting to mobilize out of the chair while in the E.D. I found that the walker provided for her was set at the incorrect height such that she was at a mechanical disadvantage when attempting to get up out of the chair (i.e. her arms would have to flex at the elbow in such a way that her elbow were up to her chin in order for her to grab the walker handles. After I adjusted the walker to the correct height, the patient was able to stand on her left leg w/ touch down bearing of her right leg. She was unsteady in her gait, halting at first but with encouragement I got her to take 3 to 4 steps forward before she stated that she was going to fall and her legs buckled, I and the nurse pulled the chair forward towards her buttocks so she could sit Examination of her spine demonstrates scoliosis w/ and evidence of prior lumbosacral surgery, she had no spine or paraspinal tenderness when I palpated her back Lower extremities: s/p R TKA scar over midline of knee, no ballotable effusions, no tenderness w/ palpation of the medial or lateral collateral ligaments, no erythema. Anterior and posterior Drawer's maneuver w/out laxity of the joint Manual muscle testing: she was weak in both quads although the left was stronger than the right. On the right I could not get her to hold her thigh up against gravity; knee extension and flexion on the left was normal whereas it was 3/5 on the right, dorsal flexion and plantar flexion was normal on the left and 4/5 on the right, hip abductors was normal on the left and 4/5 on the right, hip adductors were normal bilaterally Results Last Vital Signs Temp 36.8 C 08/30/23 20:59 Pulse 81 08/31/23 13:32 Resp 13 08/31/23 00:31 BP 111/65 08/31/23 13:32 Pulse Ox 96 08/31/23 11:52 Labs 08/30/23 21:05 08/30/23 21:05 Labs: Laboratory Results - last 24 hr 08/30/23 08/31/23 21:05 00:46 WBC 7.34 RBC 4.86 Hgb 9.0 L Hct 33.4 L MCV 69 L MCH 18.5 L MCHC 26.9 L RDW 17.5 H Plt Count 671 H MPV 9.3 Immature Gran % 0.4 Neutrophils % 66.8 Lymphocytes % 20.6 Monocytes % 5.4 Eosinophils % 6.1 Basophils % 0.7 Nucleated RBC % 0.0 Absolute Neutrophils 4.90 Absolute Lymphocytes 1.51 Absolute Monocytes 0.40 Absolute Eosinophils 0.45 Absolute Basophils 0.05 RBC Morphology See Below Hypochromasia 2+ Poikilocytosis 2+ Microcytosis 2+ Sodium 135 L Potassium 3.6 Chloride 94 L Carbon Dioxide 31.4 Anion Gap 9.6 BUN 12 Creatinine 0.9 Est GFR (CKD-EPI 2020) 73.19 Glucose 112 H Calcium 10.5 H Total Bilirubin 0.3 AST 11 L ALT 15 Alkaline Phosphatase 63 Total Protein 7.6 Albumin 3.9 Urine Color Yellow Urine Clarity Clear Urine pH 7.0 Ur Specific [place] 1.015 Urine Protein Negative Urine Ketones Negative Urine Blood Negative Urine Nitrite Negative Urine Bilirubin Negative Urine Urobilinogen 0.2 Ur Leukocyte Esterase Negative Urine Glucose Negative
[2023-08-31] MEDS: Ketorolac 15 MG/ML VIAL IM (19:24)
--- NOTE | 2023-08-31 20:33 | W.EDPROG ---
Date of service: 08/31/23 Time of Service: 20:33 Medical Decision Making pt given oral pain meds and im toradol and still needs assistance to get to walker and can only go a few steps until she needs to stop due to balance issues, will discuss with hospitalist about obs admissionand repeat pt/ot tomorrow Quality:SDOH Health Related Social Needs: No Data to Display Sign Out Sign Out Data: Sign Out Comment: back pain/spinal stenosis/deconditioning/ unable to ambulate safely : pending care management assessment and PT eval in the AM pending urinalysis baseline anemia Last updated by Elenita Espinal PA at 08/30/23 23:33 Sign Out Comment: No additional interventions needed throughout the night. Follow-up on PT OT eval in the a.m. Last updated by Alonso Garsia DO at 08/31/23 08:24 Sign Out Comment: Patient unable to ambulate. PT evaluated the patient and advised hospitalization. Hospitalist is to see the patient. If she is to be discharged home she would likely benefit from prescription for additional PT and Occupational Therapy. Last updated by Eligio Dumont MD at 08/31/23 16:21 Discharge Plan Disposition Patient Disposition: Admit to [facility] Condition: Stable Discharge Details Chief Complaint: Fall/Non TraumaCriteria Clinical Impression: Multiple falls, Acute pain of right knee Primary Care Provider: Shahzad Olivarez ED Provider: Howard Harris Home Meds and New Rx's Prescriptions: Continued Stiolto Respimat 2.5-2.5 mcg/actuation mist 2 puff inhalation DAILY Qty: 4 11RF Hold Instructions: discuss with pcp doxepin 100 mg capsule 200 mg PO QHS Qty: 180 3RF simvastatin 20 mg tablet 20 mg PO DAILY Qty: 90 3RF fenofibrate nanocrystallized [Tricor] 48 mg tablet 48 mg PO DAILY Qty: 90 3RF aripiprazole [Abilify] 20 mg tablet 40 mg PO DAILY Qty: 180 4RF Trelegy Ellipta 100-62.5-25 mcg blister with device 1 inh inhalation DAILY Qty: 28 11RF lisinopril-hydrochlorothiazide 10-12.5 mg tablet 0.5 tab PO DAILY diclofenac sodium 75 mg tablet,delayed release (DR/EC) 75 mg PO BID PRN (Reason: back pain) Qty: 180 3RF metformin 1,000 mg tablet 1,000 mg PO BID Qty: 180 3RF fentanyl 75 mcg/hr patch 72 hour 1 patch transdermal Q72H MDD 1 patch Qty: 3 0RF acetaminophen 325 mg Tablet 650 mg PO Q4H PRN PRNQty: 90 0RF budesonide-formoterol [Symbicort] 80-4.5 mcg/actuation Hfa Aerosol Inhaler 2 puff inhalation BID Qty: 0 0RF Spiriva Respimat 2.5 mcg/actuation Mist 2 puff inhalation BID Qty: 0 0RF gabapentin 600 mg tablet 600 mg PO BID Qty: 0 0RF Rx Instructions: dose increase 10/16/22 hydromorphone 2 mg tablet 2 mg PO TID MDD 2 TABS Qty: 6 0RF
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
[2023-09-01 03:32] VITALS: BP 121/81; PULSE 86; RESP 20; TEMP 36.8; O2SAT 96
[2023-09-01] MEDS: Acetaminophen 325 MG TAB PO ×2 (03:41→20:28)
[2023-09-01] MEDS: HYDROmorphone 2 MG TAB PO ×4 (05:28→20:28)
[2023-09-01 07:29] VITALS: BP 135/84; PULSE 79; RESP 18; TEMP 36.6; O2SAT 99
[2023-09-01 07:29] LABS: HCT 27.9 % (36.0-46.0); HGB 7.7 g/dL (11.2-15.7); MCHC 27.6 % (32.0-36.0); MPV 8.9 fL (8.0-11.0); Platelet Count 551 10^3/uL (130-400); RBC 4.11 10^6/uL (3.93-5.22); RDW 17.6 % (11.7-14.6); RDW-SD 42.5 fL; WBC 6.85 10^3/uL (4.4-10.8)
[2023-09-01 07:42] LABS: Iron 13 ug/dL (50-170)
[2023-09-01 07:44] LABS: MCV 68 fL (80-95)
[2023-09-01 07:45] LABS: MCH 18.7 pg (27.0-33.0)
[2023-09-01 08:08] LABS: ALT 16 U/L (14-59); AST 10 U/L (15-37); Albumin 3.1 g/dL (3.4-5.0); Alkaline Phosphatase 53 U/L (46-116); Anion Gap 4.9 mmol/L (3-11); BUN 12 mg/dL (7-18); Bilirubin, Total 0.2 mg/dL (0.2-1.0); CO2 30.1 mmol/L (21.0-32.0); CREATININE 0.7 mg/dL (0.55-1.02); Calcium 9.5 mg/dL (8.5-10.1); Chloride 97 mmol/L (98-107); Estimated GFR 98.95 (mL/min/1.73m2); Ferritin 11 ng/mL (8-252); Folate 7.1 ng/mL (8.6-20.0); Glucose 92 mg/dL (74-106); Magnesium 1.5 mg/dL (1.8-2.4); Potassium 3.8 mmol/L (3.5-5.1); Sodium 132 mmol/L (136-145); Total Protein 6.2 g/dL (6.4-8.2); Vitamin B12 401 pg/mL (193-986)
[2023-09-01] MEDS: Tiotropium Bromide-Respimat 10 PUFF INH IH ×2 (08:19→20:26)
[2023-09-01] MEDS: Gabapentin 600 MG TAB PO ×2 (09:24→20:29)
[2023-09-01] MEDS: Lisinopril 5 MG TAB PO (09:24)
[2023-09-01] MEDS: hydroCHLOROthiazide 12.5 MG TAB 6.25 MG PO (09:25)
[2023-09-01] MEDS: metFORMIN 500 MG TAB 1000 MG PO ×2 (09:25→16:03)
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
[2023-09-01] MEDS: Fenofibrate, Micronized 48 MG TAB PO (09:26)
[2023-09-01] MEDS: fentaNYL 75 MCG PATCH TD (09:27)
[2023-09-01] MEDS: Diclofenac Sodium 75 MG TABEC PO (09:52)
[2023-09-01] MEDS: ARIPiprazole 5 MG TAB 10 MG PO (09:52)
[2023-09-01] MEDS: ARIPiprazole 15 MG TAB 30 MG PO (09:53)
[2023-09-01 15:16] VITALS: BP 126/74; PULSE 80; RESP 17; TEMP 36.9; O2SAT 95
--- NOTE | 2023-09-01 15:47 | W.PM.PROGNOT ---
Date of Service Date of service: 09/01/23 Time of Service: 15:47 Assessment and Plan Assessment and plan (1) Lumbar spinal stenosis: Status: Chronic Assessment and plan: patient to follow up w/ her spine surgeon at [facility], otherwise, I would suggest referral to Dr. Morales for pain management locally at [facility] Qualifiers: Neurogenic claudication status: with neurogenic claudication Qualified Code(s): M48.062 - Spinal stenosis, lumbar region with neurogenic claudication (2) Acute pain of right knee: Status: Acute Assessment and plan: no fracture on xray and no evidence of hardware disruption, no soft tissue injury. continue current pain regimen along w/ use of walker and P.T. (3) Multiple falls: Status: Acute (4) Chronic right-sided lumbar radiculopathy: Status: Chronic Subjective Subjective Interval history since last seen: Patient states that her pain is better today. She is looking forward to going home tomorrow. CM met w/ her and is arranging increased home health services including more frequent P.T. addition of O.T. Patient would like a grab bar in her bathroom to help w/ getting off the toilet. She indicated that her son is coming up from [place] on Saturday. Exam Narrative Exam Narrative: Sadie is more cheerful today, no acute pain, sitting on edge of her bed She seems to have improved strength in both her legs. She has good left hip flexion and extension and she has good bilateral knee flexion and extenions as well as pedal dorsiflexion and plantar flexion. She is no longer wearing the knee brace as it was uncomfortable to wear Right knee has no swelling or redness and no pain w/ palpation of the joint. Objective Last Vital Signs Temp 36.9 C 09/01/23 15:16 Pulse 80 09/01/23 15:16 Resp 17 09/01/23 15:16 BP 126/74 09/01/23 15:16 Pulse Ox 95 09/01/23 15:16 Laboratory Results - last 24 hr 09/01/23 09/01/23 09/01/23 06:38 06:38 06:38 WBC 6.85 RBC 4.11 Hgb 7.7 L Hct 27.9 L MCV 68 L MCH 18.7 L MCHC 27.6 L RDW 17.6 H Plt Count 551 H MPV 8.9 Sodium 132 L Potassium 3.8 Chloride 97 L Carbon Dioxide 30.1 Anion Gap 4.9 BUN 12 Creatinine 0.7 Est GFR (CKD-EPI 2020) 98.95 Glucose 92 Calcium 9.5 Magnesium 1.5 L Iron Cancelled 13 L Ferritin Cancelled 11 Total Bilirubin 0.2 AST 10 L ALT 16 Alkaline Phosphatase 53 Total Protein 6.2 L Albumin 3.1 L Vitamin B12 Cancelled Folate 09/01/23 09/01/23 06:38 06:38 WBC RBC Hgb Hct MCV MCH MCHC RDW Plt Count MPV Sodium Potassium Chloride Carbon Dioxide Anion Gap BUN Creatinine Est GFR (CKD-EPI 2020) Glucose Calcium Magnesium Iron Ferritin Total Bilirubin AST ALT Alkaline Phosphatase Total Protein Albumin Vitamin B12 401 Folate Cancelled 7.1 L Time Spent with Patient Time Spent with Patient: <25 minutes Time was spent: preparing to see the patient(eg.review tests), indepentently interpreting results, counseling the patient and care coordination
[2023-09-01] MEDS: Budesonide/Formoterol 80/4.5 10.2 GM 120 PUFF INH IH (20:24)
[2023-09-01] MEDS: Doxepin 50 MG CAP 200 MG PO (20:27)
[2023-09-01] MEDS: Simvastatin 20 MG TAB PO (20:28)
[2023-09-01 23:53] VITALS: BP 113/62; PULSE 80; RESP 18; TEMP 36; O2SAT 94
[2023-09-02] MEDS: HYDROmorphone 2 MG TAB PO ×2 (04:08→10:35)
[2023-09-02 07:27] VITALS: BP 117/69; PULSE 78; RESP 18; TEMP 36.5; O2SAT 98
[2023-09-02] MEDS: ARIPiprazole 15 MG TAB 30 MG PO (07:32)
[2023-09-02] MEDS: ARIPiprazole 5 MG TAB 10 MG PO (07:32)
[2023-09-02] MEDS: hydroCHLOROthiazide 12.5 MG TAB 6.25 MG PO (07:33)
[2023-09-02] MEDS: Fenofibrate, Micronized 48 MG TAB PO (07:33)
[2023-09-02] MEDS: Lisinopril 5 MG TAB PO (07:34)
[2023-09-02] MEDS: metFORMIN 500 MG TAB 1000 MG PO (07:34)
[2023-09-02] MEDS: Gabapentin 600 MG TAB PO (07:34)
[2023-09-02] MEDS: Tiotropium Bromide-Respimat 10 PUFF INH IH (07:36)
[2023-09-02] MEDS: Budesonide/Formoterol 80/4.5 10.2 GM 120 PUFF INH IH (07:36)
--- NOTE | 2023-09-02 09:34 | PDOC.HHF2F_ITS ---
Home Health Referral Home Health Orders Clinical synopsis of why skilled professionals are needed: Lumbar spine stenosis, frequent falls Registered Nurse: Check all that apply Instruct on new or changed medication(s)/assess compliance: Ordered Assess for exacerbation of medical condition, instruct patient/caregivers on signs and symptoms to report for early detection: Ordered (worsening back pain; leg weakness) Physical Therapist: Check all that apply Increase strength & endurance for safe mobility at home: Ordered To design/establish home maintenance program: Ordered Fall reduction therapy program for patient with history of frequent falls: Ordered Home safety evaluation and teaching/gait training including stair management (if applicable): Ordered Rn Progressive Care: Assist with community resources: Ordered Home Bound Status Patient has a condition such that leaving home is medically contraindicated (Describe): exacerbation of back pain/leg weakness Encounter Date and Reason: I certify that a FTF encounter for this patient was performed on September 02, 2023 and that such encounter was related to the primary reason the patient requires home health services. The encounter was conducted in the following manner: * By me as the certifying physician, BUILDING CONSTRUCTION SUPERVISOR, PA or * By an inpatient physician, BUILDING CONSTRUCTION SUPERVISOR or PA during an inpatient stay who communicated findings to me, Certification And Authentication I certify that I composed the above information based on my clinical judgment relating to this patient's medical condition and, if applicable, clinical findings communicated to me by the NPP or inpatient physician who performed the FTF encounter. Name of Provider that will be monitoring home health services: Shahzad Olivarez
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
[2023-09-02 10:03] LABS: Parathyroid Hormone,Intact 48 pg/mL (19-88)
--- NOTE | 2023-09-02 10:45 | PT.INNT ---
PT Notes Visit Reasons: Multiple falls,Lumbar stenosis with radiculopathy Pt DC'd at 9:30am, going for home and receiving HHPT.
--- NOTE | 2023-09-02 17:32 | PDOC.CMDIS ---
Date of service: 09/02/23 Time of Service: 17:32 LACE Index Scoring Tool Questions: Length of Stay (in days): 2 Was the patient admitted via the E.D.?: Yes Comorbidities: Diabetes w/o Complication, Chronic Pulmonary Disease and Liver or Renal Disease E.D. Visits: 2 Answers: Total Score: 12 Risk of Readmission: High Risk Care Management Discharge Plan Reason for Hospitalization: multiple falls Discharge Plan: Maryjane will be discharged home with an increase in home health PT services with the addition of OT. She also plans to get a commode to reduce the amount she needs to ambulate. She will follow up with her community providers and plan of care and transport with family. Patient/Family Education Needs: Review of discharge instructions, activity, limitations, follow up plan, discuss Ask Me Three Services Needed at Discharge: Home Health Care Services SDOH Health Related Social Needs: No Data to Display
== END 2023-09-02 10:37 | disposition home health service (06) ==
LOC: ER 08-31 21:53 → MS 08-31 22:04
PROVIDERS: Physician Assistant; Admitting Provider Family Medicine; Emergency Provider Emergency Medicine; PCP Family Medicine; Visit Provider Family Medicine
DX: M48.062 Spinal stenosis, lumbar region with neurogenic claudication (principal); M25.561 Pain in right knee; R29.6 Repeated falls; M54.16 Radiculopathy, lumbar region; D50.9 Iron deficiency anemia, unspecified; E83.42 Hypomagnesemia; E87.1 Hypo-osmolality and hyponatremia; Z96.651 Presence of right artificial knee joint; Z79.891 Long term (current) use of opiate analgesic; E83.52 Hypercalcemia; E66.01 Morbid (severe) obesity due to excess calories; M54.40 Lumbago with sciatica, unspecified side; J44.9 Chronic obstructive pulmonary disease, unspecified; R74.01 Elevation of levels of liver transaminase levels; Z87.11 Personal history of peptic ulcer disease; F32.A Depression, unspecified; G89.29 Other chronic pain; M54.9 Dorsalgia, unspecified; F41.9 Anxiety disorder, unspecified; Z98.1 Arthrodesis status; Z68.34 Body mass index [BMI] 34.0-34.9, adult; E11.43 Type 2 diabetes mellitus with diabetic autonomic (poly)neuropathy; K31.84 Gastroparesis; Z79.84 Long term (current) use of oral hypoglycemic drugs
CPT/HCPCS: 00123; 36415; 36416; 73562; 80053; 82962; 85027; 93005; 94640; 96372; 97163; 99285; 81003; 82607; 82728; 82746; 83540; 83735; 83970; 85025; 93010; 94664; 99222; 99231; 99239; G0378; J1885

== ENCOUNTER 2023-10-02 19:01 | Outpatient (REF) | payer MEDICARE, SELFPAY ==
[2023-10-02 18:47] LABS: HCT 36.2 % (36.0-46.0); HGB 10.4 g/dL (11.2-15.7); MCHC 28.7 % (32.0-36.0); MPV 9.8 fL (8.0-11.0); Platelet Count 430 10^3/uL (130-400); RBC 4.85 10^6/uL (3.93-5.22); RDW 24.8 % (11.7-14.6); RDW-SD 64.8 fL; WBC 7.18 10^3/uL (4.4-10.8)
[2023-10-02 18:59] LABS: Calculated LDL 55 mg/dL (<100); Cholesterol 142 mg/dL (<200); HDL Cholesterol 59 mg/dL (40-60); Triglyceride 143 mg/dL (<150)
[2023-10-02 19:03] LABS: MCH 21.4 pg (27.0-33.0); MCV 75 fL (80-95)
== END 2023-10-02 19:02 | disposition home or self-care (01) ==
LOC: LBN 19:01
PROVIDERS: PCP Family Medicine; Visit Provider Family Medicine
DX: E78.5 Hyperlipidemia, unspecified (principal); R53.83 Other fatigue
CPT/HCPCS: 80061; 85027

== ENCOUNTER → 2023-11-29 00:17 | Outpatient (CLI) | payer MEDICARE, SELFPAY ==
--- NOTE | 2023-11-29 | DI.DEXA_ITS ---
Exam(s) XR DEXA BONE DENSITY W/WO NEO EXAM: XR DEXA BONE DENSITY W/WO NEO CLINICAL HISTORY: M81.0 Osteoporosis,unspd osteoporosis , unspd patholgical FX presence; TECHNIQUE: COMPARISON: No exams were available for comparison FINDINGS: Lateral Spine Image: Unremarkable. No compression deformities identified. Posterior spinal surgery a nd disc surgery at L5-S1. Left hip: Total T-Score: -3.1 Total Z-Score: -2.1 T- and Z-scores: Findings are consistent with osteoporosis. Left forearm: Total T-Score: -2.2 Total Z-Score: -0.9 T- and Z-scores: Findings are consistent with osteopenia. IMPRESSION: Osteoporosis in the left hip.
== END ==
PROVIDERS: PCP Family Medicine; Visit Provider Neurological Surgery
DX: M81.0 Age-related osteoporosis without current pathological fracture (principal); Z13.820 Encounter for screening for osteoporosis
CPT/HCPCS: 77080

== ENCOUNTER 2024-03-06 01:30 | Outpatient (CLI) | payer MEDICARE, SELFPAY ==
[2024-03-06 16:32] LABS: Anion Gap 10.3 mmol/L (3-11); BUN 18 mg/dL (7-18); CO2 27.7 mmol/L (21.0-32.0); CREATININE 0.6 mg/dL (0.55-1.02); Calcium 10.1 mg/dL (8.5-10.1); Chloride 100 mmol/L (98-107); Estimated GFR 102.06 (mL/min/1.73m2); Glucose 104 mg/dL (74-106); Potassium 4.5 mmol/L (3.5-5.1); Sodium 138 mmol/L (136-145); Vitamin D 25 Total 30.8 ng/mL (30-100)
[2024-03-06 22:48] LABS: Parathyroid Hormone,Intact 69 pg/mL (19-88)
== END 2024-03-06 01:31 | disposition home or self-care (01) ==
LOC: LBO 01:31
PROVIDERS: PCP Family Medicine; Visit Provider Internal Medicine Endocrinology, Diabetes & Metabolism
DX: M81.0 Age-related osteoporosis without current pathological fracture (principal)
CPT/HCPCS: 36415; 80048; 82306; 83970

== ENCOUNTER 2024-03-17 19:31 | Emergency (ER) | payer MEDICARE, MEDICAID, SELFPAY ==
[2024-03-17 19:41] VITALS: BP 164/104; PULSE 108; RESP 18; TEMP 37; O2SAT 95
[2024-03-17 21:14] VITALS: BP 168/91; PULSE 98; RESP 16; TEMP 37.1; O2SAT 97
[2024-03-17] MEDS: Clindamycin 300 MG CAP PO (21:14)
[2024-03-17] MEDS: Ketorolac 15 MG/ML VIAL IM (21:14)
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
--- NOTE | 2024-03-17 21:51 | NUR.NOTE ---
Nursing Note: Report and transfer of care given to Ann Marie Zayas RN
[2024-03-17 22:28] VITALS: BP 171/100; PULSE 94; TEMP 36.3; O2SAT 97
[2024-03-17 22:46] VITALS: BP 171/100; PULSE 94; RESP 16; TEMP 36.3; O2SAT 97
== END 2024-03-17 22:46 | disposition home or self-care (01) ==
PROVIDERS: Emergency Provider Emergency Medicine; PCP Family Medicine
DX: L03.115 Cellulitis of right lower limb (principal); E11.628 Type 2 diabetes mellitus with other skin complications; M79.661 Pain in right lower leg
CPT/HCPCS: 96372; 99284; 99283; J1885

== ENCOUNTER 2024-03-25 05:24 | Emergency (ER) | payer MEDICARE, MEDICAID, SELFPAY ==
[2024-03-25 05:22] VITALS: BP 151/93; PULSE 103; RESP 16; TEMP 36.2; O2SAT 99
--- NOTE | 2024-03-25 05:30 | DI.CT_ITS ---
Exam(s) CT UPPER EXTREMITY RT CTA EXAM: CT UPPER EXTREMITY RT CTA CLINICAL HISTORY: fall, large hematoma TECHNIQUE: Imaging Protocol: Axial computed tomography images with coronal and sagittal reformatted images were created and reviewed. CONTRAST MATERIAL: Intravenous: Omnipaque 350 Contrast volume:100 mL contrast route:IV - COMPARISON: No exams were available for comparison FINDINGS: OSSEOUS: No evidence of humerus fracture nor fracture of the clavicle, scapula, and ipsilateral ribs. Small calcific density adjacent to the greater tuberosity noted consistent with calcific rotator cu ff tendinitis. SOFT TISSUES: There is a huge hematoma of the right deltoid muscle with medial expansion causing up l ifting of the ipsilateral pectoralis major. The size of this hematoma measures 16 cm wide x 6 cm AP x 16 cm craniocaudal. There does not appear to be active extravasation blush seen in the substance o f this large hematoma. ARTERIES: Thoracic aorta is intact. With respect of the right upper extremity, the brachiocephalic a rteries intact. Right subclavian artery is intact. Right axillary artery intact. Right brachial ar azar intact. There does not appear to be extravasation from these vessels nor from the opacified cir cumflex humerus vessels. OTHER: No evidence of lung contusion, pleural effusion, nor pneumothorax. No ominous incidental lung findings. No ascites in the visualized upper abdomen included in the field of view. No liver lacer ation. Visualize kidneys and spleen appear intact. No significant adrenal findings. Aortic arch an d descending thoracic aorta unremarkable. IMPRESSION: There is a very large hematoma of the right deltoid muscle measuring 16x 6 x 16 centimeters. The rig ht subclavian, axillary common brachial arteries are patent and there does not appear to be active ex travasation in the main component of the large hematoma. No fractures evident Other findings as above. Discussed with ER physician 03/25/2024 at 7:15 a.m. RADIATION DOSE DELIVERED: Total DLP DATA REPOSITORY: All CT scans at this facility are submitted to the National Radiology Data Registry (NRDR) Dose Index Registry (DIR) with the [employer] (A[employer]). RADIATION OPTIMIZATION: All CT scans at this facility use at least one of these dose optimization te chniques: automated exposure control; mA and/or kV adjustment per patient size (includes targeted exa ms where dose is matched to clinical indication); or iterative reconstruction.
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
[2024-03-25] MEDS: Normal Saline - Diluent 50 ML VIAL IJ (06:27)
[2024-03-25] MEDS: Omnipaque 350 MG/ML 100 ML BTL IJ (06:27)
[2024-03-25 06:28] LABS: Abs Immature Grans 0.05 10^3/uL (0.0-0.06); Absolute Basophil Count 0.05 10^3/uL (0.0-0.2); Absolute Eosinophil Count 0.29 10^3/uL (0.0-0.7); Absolute Lymphocyte Count 0.97 10^3/uL (1.2-3.4); Absolute Monocyte Count 0.46 10^3/uL (0.1-0.8); Absolute Neutrophil Count 7.99 10^3/uL (1.2-6.7); Basophils % 0.5 %; HCT 32.8 % (36.0-46.0); HGB 10.1 g/dL (11.2-15.7); Immature Grans % 0.5 %; Lymphocytes % 9.9 %; MCH 27.3 pg (27.0-33.0); MCHC 30.8 % (32.0-36.0); MCV 89 fL (80-95); MPV 8.4 fL (8.0-11.0); Monocytes % 4.7 %; Neutrophils % 81.4 %; Platelet Count 376 10^3/uL (130-400); RDW 14.2 % (11.7-14.6); RDW-SD 45.7 fL; WBC 9.81 10^3/uL (4.4-10.8)
[2024-03-25] MEDS: Ondansetron 4 MG/2 ML VIAL IVP (06:31)
[2024-03-25] MEDS: ACETAMINOPHEN 1,000 MG/100 ML BTL 400 MG IVPB (06:31)
[2024-03-25] MEDS: MORPHine 4 MG/ML SYR IVP ×2 (06:31→08:49)
[2024-03-25] MEDS: Ketorolac 15 MG/ML VIAL IVP (06:31)
[2024-03-25 06:46] LABS: ALT 22 U/L (14-59); AST 19 U/L (15-37); Albumin 3.6 g/dL (3.4-5.0); Alkaline Phosphatase 67 U/L (46-116); Anion Gap 5.8 mmol/L (3-11); BUN 16 mg/dL (7-18); Bilirubin, Total 0.25 mg/dL (0.2-1.0); CO2 30.2 mmol/L (21.0-32.0); CREATININE 0.7 mg/dL (0.55-1.02); Calcium 10.1 mg/dL (8.5-10.1); Chloride 97 mmol/L (98-107); Creatine Kinase 151 U/L (26-192); Estimated GFR 98.34 (mL/min/1.73m2); Glucose 129 mg/dL (74-106); Potassium 4.3 mmol/L (3.5-5.1); Sodium 133 mmol/L (136-145); Total Protein 6.8 g/dL (6.4-8.2)
[2024-03-25 06:57] LABS: PTT Activated 23.6 sec (23.6-32.8); Prothrombin Time 10.3 sec (9.1-11.1)
--- NOTE | 2024-03-25 07:30 | DI.RAD_ITS ---
Exam(s) XR SHOULDER RT COMPLETE 2+V EXAM: XR SHOULDER RT COMPLETE 2+V CLINICAL HISTORY: eval soft tissue hematoma. TECHNIQUE: 2D digital imaging was performed. COMPARISON: No exams were available for comparison FINDINGS: There are 2 small adjacent soft tissue calcifications charge medially adjacent to the greater tuberos ity on the lateral aspect of the humeral head consistent with calcific tendinitis. There are no frac tures evident. No dislocation of the glenohumeral and AC joints. Clavicle appears intact. There is prominent soft tissue density over the lateral aspect of the shoulder-upper humerus consiste nt with a large hematoma as seen on CT scan IMPRESSION: Calcific rotator cuff tendinitis. No fractures evident. Large soft tissue hematoma as described on CT scan earlier same date. This hematoma was shown to rey sures 16 x 6 x [address] scan today. DATA REPOSITORY: RADIATION DOSE DELIVERED:
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
--- NOTE | 2024-03-25 09:50 | IN_ITS ---
PT Notes Visit Reasons: SHRUTHI fell down Inpatient Physical Therapy Evaluation Date: March 25, 2024 Referring Doctor: Dr. Castaneda PT Orders: PT CONSULT: Evaluation for assistive device Precautions: [] Patient Profile/Admitting Diagnosis: Chapis is a 63-year-old female presented to the ED after fall at home while walking with her 4 wheeled walker. X-ray of right shoulder negative for fracture positive for large hematoma to anterior lateral deltoid area. She is medicated with morphine prior to assessment. PMHX: DM type II, HTN, COPD, obesity, chronic low back pain with lumbar radiculopathy, anxiety, depression, right TKA, left NAN, OP, BLE cellulitis Social History/Home Situation: lives with her mother(81) who has dementia in a 1 story home with 3STE and right rail going up. Patient reports she ascends stairs leading with left leg occasionally needing assistance from left upper extremity to place left foot onto step due to her pre-existing conditions. Independent ambulation with 4 wheeled walker within home. Current Functional Limitations: Equipment Owned/DME: Four-wheel walker with seat and brakes Subjective: It hurts to lift my arm but I can use it . Maybe it is the medication. Objective: [] General Observation: Semireclined on stretcher frequently closing eyes/dozing off , B Lower extremities( shins/calf) with weeping scapped areas Mental Status: Alert and oriented x 4 Pain: Right shoulder with pain med in place 4 out of 10; without pain meds 10 out of 10 Vital Signs: ROM: Right Upper Extremity: Shoulder flexion 15 degrees; abduction 40 degrees; external rotation 45 degrees with with 20 degrees of abduction; elbow wrist and fingers within normal limits Left Upper Extremity: WNL Right Lower Extremity: WFL Left Lower Extremity: WFL Strength: Right Upper Extremity: shoulder flexion 2-/5; abduction 2-/5, IR >2/5, ER 2-/5 Left Upper Extremity: 5/5 Right Lower Extremity: hip 2+/5, knee 3/5 ankle 3/5 Left Lower Extremity: hip 3/5, knee 3/5 ankle 3/5 Sensation: intact light touch deep pressure hot and cold Bed Mobility/Transfers: SBA transfers , Vincenzo for bed mobility for LE management Gait: FWW SBA 5 feet limited by BLE pain Denies pain in RUE with WB or advancement of FWW. Pt demonstrates impaired foot clearance BLE, decreased knee flexion B during swing phase Balance: Static Sitting: Normal Dynamic Sitting: Good Static Standing: Good Dynamic Standing: Good with 1UE support of FWW Special Tests: Mobility Limitations Standardized Measure [facility] AM-PAC 6 clicks Basic Mobility Inpatient Short Form: Raw Score: 21 Standardized Score: [] CMS Score: 28.97 Informed Consent/Education: Patient instructed in purpose of PT consult and plan of care. Assessment: Patient is a 63 year old female referred to physical therapy services with the diagnosis of Right shoulder hematoma s/p fall. Patient presents with clinical signs and symptoms consistent with diagnosis, as demonstrated by the following impairment level findings: pain, swelling, ROM, strength Impairments are contributing to the following functional limitations: AMPAC score, impaired ADLS. Pt demonstrates ability to WB through RUE for transfers and advancement of FWW for short distance ambulation. She demonstrates limitation in BLE d/t lumbar radiculopathy. Pt expressing desire to return to [facility] . She notes she has to sit at the EOB at home for 1 hour in the morning d/t the stiffness in her legs. She demonstrated ability to lift her LE to step height for simulated stair. Patient is assessed as a X Low 44214 [] Moderate 54371 [] High 82332 complexity based on the following: History: [X] Examination: [X] Presentation: [X] Decision Making: [X] Goals: NA eval only Plan of Care/Treatment Plan: evaluation only reviewed with Dr Castaneda DISCHARGE RECOMMENDATIONS: [] Home with no services [] [X] Home with services PT [] Home with outpatient PT [] [] SNF for continued rehabilitation [] [] [facility] [] [] SNF versus LTC based on ability to participate and progress [] TREATMENT CODE/TIME: 35587 /54 minutes Please sign an return this page within 30 days if you agree with the above POC. Thank you! Physician Signature Date [facility]
[2024-03-25 10:07] LABS: HCT 28.6 % (36.0-46.0); HGB 8.7 g/dL (11.2-15.7); MCH 27.1 pg (27.0-33.0); MCHC 30.4 % (32.0-36.0); MCV 89 fL (80-95); MPV 8.5 fL (8.0-11.0); Platelet Count 328 10^3/uL (130-400); RBC 3.21 10^6/uL (3.93-5.22); RDW 14.1 % (11.7-14.6); RDW-SD 45.9 fL
--- NOTE | 2024-03-25 10:49 | ED.PROG_ITS ---
Date of service: 03/25/24 Time of Service: 10:54 Medical Decision Making 63-year-old female who was signed out to me by my colleague Dr. Cyr. Please refer to HPI, physical exam, assessment and plan. At time of signout we are awaiting repeat assessment CBC and x-ray as well as orthopedic evaluation. Orthopedics made a wonderful suggestion for getting a PT consult while here in the ED. Repeat x-ray is unchanged. PT consult demonstrates excellent ambulatory capability with walker, good range of motion for the shoulder, and excellent pain tolerance. Patient was able to ambulate well without any lightheadedness or difficulty. She did not require any extra assistance. She does live with a friend in her home as well. Repeat hemoglobin came back at 8.7, which is actually relatively close to her baseline. Patient's hemodynamics remained notably stable. Blood pressure stable with no hypotension, no near syncope. Patient otherwise feels well. I did contact her primary care provider's office, Dr. Olivarez is currently out today, but I did speak with Randolph Villela. They will follow-up closely with the patient and schedule repeat CBC on Saturday to make sure hemoglobin is staying stable. Recommend continued fluids at home, red meat diet and iron supplements. Recommend caution when standing up. Discussed signs and symptoms that would necessitate return. Recommend continued ice of the shoulder. Orthopedics did evaluate the patient, and the good Dr. Valentine evaluated the patient and feels that outpatient follow- up is certainly reasonable at this time as there is no indication for orthopedic admission or emergent surgical intervention. Patient will be discharged home. We will help coordinate lift assist for when she gets home. Discussed red flags for which to return. I have extensively reviewed the treatment plan and discharge instructions with the patient and their family. I have addressed all patient concerns at this time. The patient and family was made aware of what symptoms to monitor for that would warrant a return to the emergency department. Discussed the plan with the patient and family, they demonstrate verbal understanding and agreement with our assessment and plan at this time. The documentation in this chart was dictated using [employer] dictation software. Please excuse any dictation errors. Quality:SDOH Health Related Social Needs: No Data to Display Sign Out Sign Out Data: Sign Out Comment: MFFS, severe rapidly progressive right upper arm/shoulder swelling extending to anterior chest. Not on anticoagulation. Benign neurovascular exam. Not compartment syndrome at this time. Pending CTA read for ? vascular injury/fracture, discussed with ortho. Plan for XR, repeat CBC. May need admission to medicine for trend labs/pain control Last updated by Quiana Kim MD at 03/25/24 07:44 Discharge Plan Disposition Patient Disposition: Home Condition: Good Discharge Details Chief Complaint: Fall/Non TraumaCriteria Clinical Impression: Sprain of right shoulder, Hematoma of right shoulder Primary Care Provider: Shahzad Olivarez ED Provider: Alonso Garsia Home Meds and New Rx's Prescriptions: No Action clindamycin HCl 300 mg capsule 300 mg PO QID Qty: 48 0RF Stiolto Respimat 2.5-2.5 mcg/actuation mist 2 puff inhalation DAILY Qty: 4 11RF Trelegy Ellipta 100-62.5-25 mcg blister with device 1 inh inhalation DAILY Qty: 28 11RF pantoprazole 40 mg tablet,delayed release (DR/EC) 40 mg PO DAILY Rx Instructions: 09/11/23 Per [facility] [place] [facility]. -hb simvastatin 20 mg tablet 20 mg PO DAILY Qty: 90 3RF aripiprazole [Abilify] 20 mg tablet 40 mg PO DAILY Qty: 180 4RF fenofibrate 54 mg tablet 54 mg PO DAILY Qty: 90 3RF cholecalciferol (vitamin D3) 1,250 mcg (50,000 unit) capsule 1,250 mcg PO QWEEK Qty: 12 2RF diclofenac sodium 75 mg tablet,delayed release (DR/EC) 75 mg PO BID PRN (Reason: back pain) Qty: 180 3RF oxycodone 10 mg tablet 10 mg PO QHS MDD 1 tab PRN (Reason: pain) Qty: 24 0RF lisinopril-hydrochlorothiazide 10-12.5 mg tablet 0.5 tab PO DAILY Qty: 45 3RF gabapentin 600 mg tablet 900 mg PO TID Qty: 135 1RF Rx Instructions: dose increase 12/28/23 doxepin 100 mg capsule 200 mg PO QHS Qty: 180 3RF fentanyl 100 mcg/hr patch 72 hour 1 patch transdermal Q48H MDD 1 patch Qty: 5 0RF fentanyl 12 mcg/hr patch 72 hour 1 patch transdermal Q48H MDD 1 patch Qty: 5 0RF lisinopril 5 mg Tablet 5 mg PO QAM Qty: 60 0RF cephalexin 500 mg capsule 500 mg PO QID Patient Comments: TAKE ONE CAPSULE BY MOUTH FOUR TIMES A DAY FOR 7 DAYS furosemide 20 mg tablet 20 mg PO DAILY PRN Patient Comments: TAKE 1 TABLET BY MOUTH DAILY NEEDED FOR SWELLING acetaminophen 325 mg Tablet 650 mg PO Q4H PRN PRNQty: 90 0RF budesonide-formoterol [Symbicort] 80-4.5 mcg/actuation Hfa Aerosol Inhaler 2 puff inhalation BID Qty: 0 0RF Spiriva Respimat 2.5 mcg/actuation Mist 2 puff inhalation BID Qty: 0 0RF Discharge Instructions Instructions: Shoulder Sprain ED Additional Instructions: At this time your x-ray and CAT scan showed no evidence of fracture in your shoulder. As we discussed together you have a large hematoma in your shoulder which is a collection of blood. Please ice the area frequently. You did very well with his physical therapist, and it is their assessment that you have the resources needed at home at this time. Please still stand up slowly and be cautious when you ambulate. Use your walker at all times. With the amount of blood that you did lose in your shoulder it is important to get your blood levels rechecked. Please come back Saturday morning to have a repeat blood level checked And follow-up closely with your primary care provider. Stay well- hydrated. Drink plenty of fluids and do not hesitate to eat red meat or take an iron supplement. If you notice any worsening of your symptoms, or any new symptoms such as vomiting, diarrhea, fever, chills, shortness of breath, chest pain, numbness, weakness, or fainting , please return immediately to the emergency department for reevaluation. Please follow up with your primary care provider as soon as possible for reassessment and reevaluation. As always, it was a pleasure participating in your medical care today. Referrals: Richard Valentine PA [PHYSICIANS PHOTONICS TECHNICIAN] - Shahzad Olivarez MD [Primary Care Provider] -
[2024-03-25 11:11] VITALS: BP 115/60; PULSE 89; RESP 14; O2SAT 99
== END 2024-03-25 11:11 | disposition home or self-care (01) ==
PROVIDERS: Student in an Organized Health Care Education/Training Program; Emergency Provider Student in an Organized Health Care Education/Training Program; PCP Family Medicine
DX: S40.011A Contusion of right shoulder, initial encounter (principal); S43.491A Other sprain of right shoulder joint, initial encounter; D64.9 Anemia, unspecified; I10 Essential (primary) hypertension; E11.9 Type 2 diabetes mellitus without complications; J44.9 Chronic obstructive pulmonary disease, unspecified; Z87.891 Personal history of nicotine dependence; W01.0XXA Fall on same level from slipping, tripping and stumbling without subsequent striking against object, initial encounter; Y93.01 Activity, walking, marching and hiking; Y92.018 Other place in single-family (private) house as the place of occurrence of the external cause
CPT/HCPCS: 00123; 73206; 80053; 82550; 85027; 86850; 86900; 86901; 96365; 96375; 96376; 97161; 99284; 99285; 73030; 85025; 85610; 85730; J0131; J1885; J2270; J2405; J3490

== ENCOUNTER 2024-04-14 18:18 | Outpatient (REF) | payer MEDICARE, SELFPAY ==
[2024-04-14 14:29] LABS: HCT 35.2 % (36.0-46.0); HGB 10.4 g/dL (11.2-15.7); MCH 27.8 pg (27.0-33.0); MCHC 29.5 % (32.0-36.0); MCV 94 fL (80-95); MPV 9.2 fL (8.0-11.0); Platelet Count 398 10^3/uL (130-400); RBC 3.74 10^6/uL (3.93-5.22); RDW 14.8 % (11.7-14.6); RDW-SD 51.6 fL
[2024-04-14 14:45] LABS: Iron 69 ug/dL (50-170); Total Iron Binding Capacity 405 ug/dL (250-450); Transferrin Sat 17 % (15-50)
[2024-04-14 14:56] LABS: Ferritin 69 ng/mL (8-252)
== END 2024-04-14 18:19 | disposition home or self-care (01) ==
LOC: LBN 18:18
PROVIDERS: PCP Family Medicine; Visit Provider Family Medicine
DX: R53.83 Other fatigue (principal); D64.9 Anemia, unspecified
CPT/HCPCS: 85027; 82728; 83540; 83550

== ENCOUNTER 2024-05-01 12:23 | Emergency (ER) | payer MEDICARE, MEDICAID, SELFPAY ==
[2024-05-01] VITALS (24 sets, daily range): BP systolic 101–161; BP diastolic 30–99; PULSE 70–148; RESP 13–33; TEMP 37.2; O2SAT 92–97
--- NOTE | 2024-05-01 12:30 | DI.CT_ITS ---
Exam(s) CT THORACIC LUMBAR SPINE WO EXAM: CT THORACIC LUMBAR SPINE WO CLINICAL HISTORY: Fall, eval fracture. TECHNIQUE: Imaging Protocol: Axial computed tomography images with coronal and sagittal reformatted images were created and reviewed. COMPARISON: MR MR LUMBAR SPINE WO from 01/29/[address] LUMBAR SPINE SI JOINTS WO from 08/24/2023 CR XR DEXA BONE DENSITY W/WO NEO from 11/29/2023 CR XR PORTABLE CHEST AP from 05/01/2024 FINDINGS: Bones: No acute fracture or subluxation is seen in the thoracic spine. Age-appropriate degenerative changes are present. There is a left convex upper thoracic spine scoliosis. Since the prior examina tion, there is now disruption of the posterior cortex of the L3 vertebral body and a lucency in the i nferior endplate of the L3 vertebral body. There is also now a fracture through the posterior and le ft aspect of the L3 vertebral body. There is loss of height of the left aspect of the L3 vertebral b dariel. There is also new loss of the cortex at the L4-L5 level. There is again seen posterior spinal surgery pedicle screws and posterior rods at L4 and L5 and an intervertebral disc cage at L5-S1. Ther e is increased lucency seen about the pedicle screws in S1. This has progressed since the prior exam ination. There is also now lucency around the right L5 pedicle screw. There is also a healing subac [place] nondisplaced fracture of the right L2 transverse process. This was not present on the prior exam ination. Soft tissues: There is now air seen within the spinal canal. The air extends from T11 through to L2. There is high density material seen within the spinal canal at L1 and L2 which appears to be contig uous with the air collection. The possibility of an abscess should be considered given the findings seen in the bones of the lumbar spine. Trauma should also be considered. IMPRESSION: 1. Fracture involving the posterior and superior aspect of the L3 vertebral body with loss of height of the vertebral body. 2. Irregularity in the cortices of L3-L4 and L5 concerning for spondylo discitis. 3. Worsening lucency seen around the pedicle screws at L4 and L5 which can be seen with loosening or infection. 4. Air-fluid collection within the spinal canal. Given the concern for spondylo discitis, abscess sh ould be considered. 5. An MRI of the thoracic and lumbar spine without and with contrast is recommended in this patient. 6. Findings were discussed with Dr. Ibrahim at 2:55 p.m. on 05/01/2024. RADIATION DOSE DELIVERED: 2,895.43mGy.cm Total DLP DATA REPOSITORY: All CT scans at this facility are submitted to the National Radiology Data Registry (NRDR) Dose Index Registry (DIR) with the [employer] ([employer]). RADIATION OPTIMIZATION: All CT scans at this facility use at least one of these dose optimization te chniques: automated exposure control; mA and/or kV adjustment per patient size (includes targeted exa ms where dose is matched to clinical indication); or iterative reconstruction.
--- NOTE | 2024-05-01 12:30 | RT.EKG_ITS ---
APPROVED REPORT Exam: Resting ECG Reason for Exam: Tachycardia Patient Location: E HR:112 bpm ECG Measurements Heart Rate 112 AXIS HI 153 P 21 QRSd 95 QRS 24 QT 326 T 263 QTc 442 Conclusion Sinus tachycardia, rate 112 PACs No interval abnormalities Diffuse non-specific T-wave depression/flattening, <1mm elevation aVR No STEMI
--- NOTE | 2024-05-01 12:32 | NUR.NOTE ---
Nursing Note:this RN and [facility], RN visualized x2 fent patches on patient left upper arm one 100mcg and 12mcg on arrival to department
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
[2024-05-01 13:08] LABS: Abs Immature Grans 0.16 10^3/uL (0.0-0.06); Absolute Eosinophil Count 0.26 10^3/uL (0.0-0.7); Absolute Lymphocyte Count 0.92 10^3/uL (1.2-3.4); Absolute Neutrophil Count 14.73 10^3/uL (1.2-6.7); Basophils % 0.3 %; Eosinophils % 1.5 %; HCT 39.2 % (36.0-46.0); HGB 12.2 g/dL (11.2-15.7); Immature Grans % 0.9 %; Lymphocytes % 5.3 %; MCH 28.4 pg (27.0-33.0); MCHC 31.1 % (32.0-36.0); MCV 91 fL (80-95); MPV 8.1 fL (8.0-11.0); Monocytes % 7.6 %; Neutrophils % 84.4 %; Platelet Count 373 10^3/uL (130-400); RBC 4.29 10^6/uL (3.93-5.22); RDW 14.2 % (11.7-14.6); RDW-SD 47.6 fL; WBC 17.45 10^3/uL (4.4-10.8)
[2024-05-01] MEDS: Acetaminophen 500 MG TAB 1000 MG PO (13:19)
[2024-05-01 13:27] LABS: Absolute Basophil Count 0.05 10^3/uL (0.0-0.2); Absolute Monocyte Count 1.33 10^3/uL (0.1-0.8)
--- NOTE | 2024-05-01 13:30 | DI.RAD_ITS ---
Exam(s) XR PORTABLE CHEST AP EXAM: XR PORTABLE CHEST AP CLINICAL HISTORY: eval infection TECHNIQUE: 2D digital imaging was performed. COMPARISON: CR XR CHEST 2V PA LATERAL from 08/17/2018 FINDINGS: LUNGS: Basilar linear atelectasis. Infiltrates not entirely excluded. Lungs are suboptimally inflat ed. No pleural abnormality seen. HEART: Normal size. AORTA: Normal diameter. BONES: Unremarkable for age. Soft tissues: Unremarkable. IMPRESSION: Suboptimal exam. Bibasilar atelectasis. DATA REPOSITORY: RADIATION DOSE DELIVERED:
[2024-05-01 13:31] LABS: ALT 11 U/L (14-59); AST 13 U/L (15-37); Albumin 3.6 g/dL (3.4-5.0); Alkaline Phosphatase 90 U/L (46-116); Anion Gap 11.5 mmol/L (3-11); BUN 35 mg/dL (7-18); Bilirubin, Total 0.33 mg/dL (0.2-1.0); CO2 26.5 mmol/L (21.0-32.0); Calcium 9.9 mg/dL (8.5-10.1); Chloride 99 mmol/L (98-107); Estimated GFR 64.09 (mL/min/1.73m2); Glucose 105 mg/dL (74-106); Magnesium 1.8 mg/dL (1.8-2.4); Potassium 3.4 mmol/L (3.5-5.1); Sodium 137 mmol/L (136-145); Total Protein 7.1 g/dL (6.4-8.2)
[2024-05-01 13:38] LABS: Prothrombin Time 10.3 sec (9.1-11.1)
[2024-05-01 14:06] LABS: Bilirubin Negative (Negative); Blood Negative (Negative); Clarity Sl Cloudy (Clear); Glucose Negative (Negative); Ketones Negative (Negative); Leukocyte Esterase Moderate (Negative); Nitrite Negative (Negative); Urobilinogen 0.2 mg/dL (Up to 0.2); pH 5.5 (5-8)
[2024-05-01] MEDS: Lactated Ringers 1,000 ML 1000 ML IV (14:09)
[2024-05-01 14:31] LABS: Epithelial Cells Moderate HPF (Negative)
[2024-05-01 14:32] LABS: Bacteria Moderate HPF (Negative); C & S Indicated? No/Sq. Contamination; Crystals Negative HPF (Negative); Mucus Negative (Negative); Other Cells Rare Transitional (Negative)
[2024-05-01 14:35] LABS: Lactate 1.8 mmol/L (0.6-1.4)
--- NOTE | 2024-05-01 15:00 | DI.MRI_ITS ---
Exam(s) MR THORACIC SPINE WO/W MR LUMBAR SPINE WO/W EXAM: MR LUMBAR SPINE WO/W and MR thoracic spine without and with CLINICAL HISTORY: Eval abscess, fracture. TECHNIQUE: Multiplanar multisequence MRI of the thoracic and lumbar Spine was performed. CONTRAST MATERIAL: IV Contrast: 20 mL of Dotarem contrast administered. COMPARISON: MR MR LUMBAR SPINE WO from 01/29/[address] THORACIC LUMBAR SPINE WO from 05/01/2024 FINDINGS: The examination is limited due to patient motion artifact. MRI of the thoracic spine: Bones: The vertebral body heights are well maintained. There is a left convex curvature of the midtho racic spine. Mild endplate degenerative signal changes are seen in the thoracic spine. Cord: There is normal signal intensity in the spinal cord. No intrinsic cord lesion is present. There is flattening of the spinal cord secondary to the extradural fluid collection as described below. It also causes rightward displacement of the spinal cord. There is posterior dural enhancement almost t he entire length of the thoracic spine. Discs: No disc herniation or bulge is present in the thoracic spine. No significant neural foraminal stenosis is seen. Soft tissues: There is an extradural collection extending from T11 through L3. It lies posterior and to the left of the thecal sac. It measures at least 7.1 cm in length. As a maximum transverse diamet er of 1.9 cm in the maximum AP diameter 1.1 cm. There is some enhancement of the wall following contr ast administration. There are areas of signal dropout seen predominantly superiorly consistent with t he air seen on the CT scan from the same day. MRI of the lumbar spine: This examination is limited by patient motion artifact. Bones: The last intervertebral disc space is designated the L5/S1 level for the numbering purpose of this examination. There are 4 non rib-bearing lumbar type vertebral bodies. Posterior spinal rods an d pedicle screws are again seen at L5-S1. There is a right convex lumbar scoliosis. The fracture of t he left lateral aspect of the L3 vertebral body is noted but best visualized on the CT scan from the same day. In addition to endplate degenerative changes throughout the lumbar spine, hyperintense sign al seen on the T2 weighted images and hypointense signal seen on the T1 weighted images consistent wi th L3 fracture. Cord: The conus tip ends at the L1 level. It is of normal size and signal intensity. T12-L1: No disc herniations or bulges are present. There does appear to be left neural foraminal sten osis. There is narrowing of the central spinal canal secondary to the extradural fluid collection. L1-L2: No disc herniations or bulges are present. There is left neural foraminal stenosis. L2-L3: There is a diffuse disc bulge. It is eccentric to the left. There is marked left neural forami nal stenosis and [id number] right neural foraminal stenosis.There is central spinal canal steno sis. L3-L4: A diffuse disc bulge. There is marked right and moderate left neural foraminal stenosis. There is central spinal canal stenosis seen. L4-L5: No disc herniations or bulges are present. There is marked right neural foraminal stenosis and [id number] left neural foraminal stenosis. No definite central spinal canal stenosis is seen, however, examination is limited by orthopedic hardware artifact. IMPRESSION: 1. 7.1 x 1.9 x 1.1 cm extradural 5 heterogeneous fluid collection posterior to the left of the thecal sac extending from L2. Findings consistent with internal air and associated calcification are noted and are consistent with what is seen on the CT scan from the same day. There is peripheral enhancemen t following contrast administration. This may be sequelae from the pre-existing discal calcification and the acute L2 fracture. Infection should also be considered. 2. Posterior dural enhancement to almost the entire length of the thoracic spine. This may be reactiv e. Again, infection should be considered. 3. Normal signal seen in the thoracic spinal cord. There is compression of the distal cord secondary to the extradural complex fluid collection. 4. Fracture of the L2 vertebral body which is best seen on the CT scan from the same day. DATA REPOSITORY:
[2024-05-01 15:03] LABS: Bilirubin Negative (Negative); Blood Negative (Negative); Clarity Clear (Clear); Glucose Negative (Negative); Ketones Negative (Negative); Leukocyte Esterase Negative (Negative); Nitrite Negative (Negative); Urobilinogen 0.2 mg/dL (Up to 0.2); pH 5.5 (5-8)
[2024-05-01 15:03] LABS: ESR 19 mm/hr (0-30)
[2024-05-01 15:10] LABS: C-Reactive Protein 7.56 mg/dL (<or=0.5)
[2024-05-01] MEDS: LORazepam 2 MG/ML VIAL 0.5 MG IVP (15:31)
[2024-05-01] MEDS: Gadoterate meglumine 20 ML SYRINGE IVP (15:43)
[2024-05-01] MEDS: Normal Saline Flush 10 ML SYR IVP (15:43)
--- NOTE | 2024-05-01 17:57 | DI.VRAD_ITS ---
PROCEDURE INFORMATION: Exam: MR Thoracic Spine Without and With Contrast Exam date and time: 05/01/2024 4:06 PM Age: 63 years old Clinical indication: Condition or disease; Other: Eval abscess, fracture TECHNIQUE: Imaging protocol: Magnetic resonance imaging of the thoracic spine without and with contrast. Contrast material: DOTAREM; Contrast volume: 20 ml; Contrast route: INTRAVENOUS (IV); COMPARISON: 1. CT THORACIC LUMBAR SPINE WO 05/01/2024 1:[address] LUMBAR SPINE SI JOINTS WO 08/24/2023 10:29 AM FINDINGS: Limitations: The examination is mildly degraded by patient motion artifact. Diagnostic information is still obtained. Bones/joints: Mild S shaped curvature and rotation of the thoracic spine. No subluxation or marrow infiltrative changes are appreciated. Spinal cord: There is a heterogeneous extradural collection of the posterolateral left thoracic spine extending from T10 through the lumbar spine. This demonstrates signal dropout on all pulse sequences consistent with air seen on prior CT, as well as additional heterogeneous material consistent with fluid density in calcium density seen on prior CT. There is peripheral dural and epidural enhancement. This displaces the thoracic cord to the right anterior, with significant flattening of the thoracic cord. To the extent evaluated there is no gross cord edema or enhancement to suggest acute cord compression. There is additionally noted smooth dorsal dural enhancement in the thoracic spine extending from the T3 level through the extradural mass at T10. This does not significantly contribute to spinal canal stenosis. Soft tissues: Unremarkable. IMPRESSION: 1. Heterogeneous left posterior epidural collection extending from T10 through the lumbar spine. Given the appearance on CT and MRI, this is consistent with complex intraspinal extension of disc and heterotopic calcification seen on prior CT of 08/24/2023, likely facilitated by L2 fracture (see CT and MRI lumbar spine dictated the same day). The presence of surrounding dural and epidural enhancement is likely reactive in nature; the possibility of superinfection is unlikely but not excluded. 2. Right anterior displacement of the thoracic cord at T10 through the thoracolumbar junction with deformity; no definite evidence of acute cord compression. 3. Additional smooth dural and epidural thickening and enhancement of the thoracic spine extending from T3 through T10 is likely reactive in nature. Dictated and Authenticated by: Rohith White MD. Ordering:NIKITA Murry MD
--- NOTE | 2024-05-01 17:57 | DI.VRAD_ITS ---
PROCEDURE INFORMATION: Exam: MR Lumbar Spine Without and With Contrast Exam date and time: 05/01/2024 3:41 PM Age: 63 years old Clinical indication: Other: Eval abscess, fracture; Prior surgery; Surgery date: 6+ months; Surgery type: Fusion TECHNIQUE: Imaging protocol: Magnetic resonance imaging of the lumbar spine without and with contrast. Contrast material: DOTAREM; Contrast volume: 20 ml; Contrast route: INTRAVENOUS (IV); COMPARISON: 1. CT THORACIC LUMBAR SPINE WO 05/01/2024 1:[address] LUMBAR SPINE SI JOINTS WO 08/24/2023 10:29 AM FINDINGS: Limitations: The examination is mildly degraded by patient motion artifact. Bones/joints: Four [id number]-[id number] lumbar type vertebral bodies with essentially complete sacralization of L5. Close correlation with vertebral body numbering is recommended prior to any planned intervention. The patient is status post discectomy and posterior fusion at L4-L5, unchanged. Metallic artifact with signal dropout and geometric distortion results in suboptimal evaluation through this level. S shaped curvature of the lumbar spine with right lateral subluxation of L2 and L3, unchanged from CT lumbar spine examination performed earlier the same day. There is edema associated with the left superior vertebral and pedicle fracture at L2 as well as predominantly Modic type 1 endplate degenerative signal change at L1-L2. Spinal epidural space: There is a complex left epidural collection which appears to originate anterolaterally at L1-L2 and extend to the left dorsal lateral epidural space. This is concordant with calcified, soft tissue, fluid, and air seen in this space on CT. There is surrounding dural thickening and epidural enhancement which appears to be circumferential at L1-L2 through L2-L3. There is possibly additional dural and epidural enhancement of the lower lumbar spine however this is not well visualized secondary to metallic artifact. Additional extension into the thoracic spine as described on the thoracic spine MRI dictated separately. Spinal cord: Right anterolateral deviation and deformity of the distal thoracic cord, conus medullaris, and cauda equina. No edema or enhancement of the distal cord or conus medullaris to suggest acute compression. T11-T12: Prominent left posterior collection results in deviation of the conus medullaris anterolaterally to the right without definite evidence of acute compression. Overall severe spinal canal stenosis. No significant disc disease. T12-L1: Prominent left posterior and lateral collection results in deviation of the conus medullaris and cauda equina nerve roots anterolateral to the right with severe spinal canal stenosis and severe narrowing of the left subarticular recess. Mild disc desiccation and disc bulge. Likely moderate left neural foraminal narrowing. L1-L2: Disc and endplate osteophyte disease is greater on the right than the left with diffuse abnormal signal intensity of the L2 vertebral body likely related to fracture and sclerotic changes seen on CT. Irregular circumferential moderate narrowing of the thecal sac and subarticular recesses. Severe left neural foraminal narrowing. L2-L3: Large disc extrusion and lateral subluxation with severe spinal canal stenosis and severe narrowing of the subarticular recesses. Moderate right and severe left neural foraminal narrowing. L3-L4: Irregular disc and endplate osteophyte complex with vacuum disc phenomenon. Severe spinal canal stenosis with severe right and moderate left neural foraminal narrowing. L4-L5: Sacralization of L5, status post discectomy and posterior fusion. To the extent evaluated there is no gross high-grade spinal canal stenosis. There does appear to be residual severe right neural foraminal narrowing. L5-S1: Rudimentary intervertebral disc without gross spinal canal stenosis or neural foraminal narrowing. Soft tissues: There are calcifications with surrounding edema and enhancement lateral to the left L2-L3 interspace consistent with calcifications and ill-defined collection seen on CT. Urinary bladder: The urinary bladder appears significantly distended, incompletely evaluated. IMPRESSION: 1. Four [id number]-[id number]-jfkftib lumbar type vertebral bodies with essentially complete sacralization of L5.. Close correlation with vertebral body numbering is recommended prior to any planned intervention. 2. Status post discectomy and posterior fusion at L4-L5. 3. Fracture on the left at L2 is better seen on the lumbar spine CT, with associated edema on MRI. This appears to be associated with a complex left epidural collection likely representing intraspinal extension of previously seen amorphous calcifications and disc into the epidural space, with resultant high-grade spinal canal stenosis, right anterolateral deviation of the conus medullaris and cauda equina, and enhancement of the dura and epidural space that is likely reactive in nature. The possibility of superinfection is not excluded. 4. Additional severe degenerative changes of the lumbar spine as detailed on a level by level basis above. Dictated and Authenticated by: Rohith White MD. Ordering:NIKITA Murry MD
[2024-05-01] MEDS: HYDROmorphone 2 MG/ML SYR 0.5 MG IVP (19:31)
--- NOTE | 2024-05-01 19:54 | W.EDPROG ---
Date of service: 05/01/24 Time of Service: 19:54 Medical Decision Making MRI showing complex left epidural collection with right anterior lateral deviation of conus medullaris and cauda equina as well as enhancement of the dura and epidural space in the setting of leukocytosis elevated CRP tachycardia high clinical suspicion for epidural abscess was able to consult with [facility] orthopedic team who is covering spine Dr. Ruiz who is going to consult with the rest of his team to determine whether this patient can be transferred to [facility] for operative evaluation and treatment however I have been told that they have limited bed availability. Patient has persistent tachycardia initially antibiotics were held as to preserve diagnostic yield of any operative intervention from a culture standpoint however Dr. Ruiz has suggested starting broad-spectrum antibiotics if our differential includes spinal epidural abscess which it does. Awaits with Dr. Ruiz discusses this case with his team before calling another tertiary care center to attempt to transfer this patient for operative management. Lower extremities remained neurologically and neurovascularly intact, patient has good rectal tone with normal sensation in the perineum. 21: 52 as I have not heard back from [facility] spine team in some time I have reached out to [facility] for consultation with spinal service. 22: 34 patient resting comfortably no acute distress neurovascularly intact; I was able to speak with Dr. Quiroz of orthopedic/spine service at [facility] who has accepted patient for transfer, patient will come ED to ED accepting ER physician Dr. Horowitz. Quality:HIOH Health Related Social Needs: No Data to Display Sign Out Sign Out Data: Sign Out Comment: Multiple mechanical falls at home, unable to stand due to pain and generalized lower extremity weakness today, found to have evidence of L3 fracture and a concern for spinal infection (epidural abscess likely with air-fluid levels). New leukocytosis, tachycardic, no fever, cultures drawn and pending. -Follow MRI with and without T and L-spine -Spine surgery if significant findings Last updated by Jackeline Kuhn MD at 05/01/24 16:36 Discharge Plan Disposition Patient Disposition: Transfer-Acute Inpatient Care Specific Acute Inpt Facility: [facility] Condition: Stable Discharge Details Chief Complaint: Fall/Non TraumaCriteria Clinical Impression: Spinal epidural abscess Primary Care Provider: Shahzad Olivarez ED Provider: Michael Nichole Home Meds and New Rx's Prescriptions: No Action fenofibrate 54 mg tablet 54 mg PO DAILY Qty: 90 3RF simvastatin 20 mg tablet 20 mg PO DAILY Qty: 90 3RF Stiolto Respimat 2.5-2.5 mcg/actuation mist 2 puff inhalation DAILY Qty: 4 11RF Trelegy Ellipta 100-62.5-25 mcg blister with device 1 inh inhalation DAILY Qty: 28 11RF cholecalciferol (vitamin D3) 1,250 mcg (50,000 unit) capsule 1,250 mcg PO QWEEK Qty: 12 2RF lisinopril-hydrochlorothiazide 10-12.5 mg tablet 0.5 tab PO DAILY Qty: 45 3RF doxepin 100 mg capsule 200 mg PO QHS Qty: 180 3RF aripiprazole [Abilify] 20 mg tablet 40 mg PO DAILY Qty: 180 4RF furosemide 20 mg tablet 20 mg PO DAILY PRN (Reason: swelling) Qty: 30 3RF diclofenac sodium 75 mg tablet,delayed release (DR/EC) 75 mg PO BID PRN (Reason: back pain) Qty: 180 3RF fentanyl 100 mcg/hr patch 72 hour 1 patch transdermal Q48H MDD 1 patch Qty: 10 0RF fentanyl 12 mcg/hr patch 72 hour 1 patch transdermal Q48H MDD 1 patch Qty: 10 0RF oxycodone 10 mg tablet 10 mg PO QHS MDD 1 tab PRN (Reason: pain) Qty: 24 0RF gabapentin 600 mg tablet 900 mg PO TID Qty: 135 1RF Rx Instructions: dose increase 12/28/23 acetaminophen 325 mg Tablet 650 mg PO Q4H PRN PRNQty: 90 0RF Spiriva Respimat 2.5 mcg/actuation Mist 2 puff inhalation BID Qty: 0 0RF
== END 2024-05-01 23:20 | disposition short-term general hospital (02) ==
PROVIDERS: Emergency Medicine; Emergency Provider Emergency Medicine; PCP Family Medicine
DX: M54.50 Low back pain, unspecified (principal); G06.1 Intraspinal abscess and granuloma; W19.XXXA Unspecified fall, initial encounter; R29.6 Repeated falls; R53.1 Weakness
CPT/HCPCS: 00123; 72158; 80053; 85652; 87040; 93005; 96361; 96374; 96375; 99285; 71045; 72128; 72131; 72157; 81003; 81015; 83605; 83735; 85025; 85610; 86140; 93010; J1170; J2060

== ENCOUNTER 2024-06-20 17:53 | Observation (INO) | payer MEDICARE, MEDICAID, SELFPAY ==
[2024-06-20] VITALS (35 sets, daily range): BP systolic 81–112; BP diastolic 53–67; PULSE 68–100; RESP 6–19; TEMP 37.4; O2SAT 79–99
--- NOTE | 2024-06-20 18:00 | DI.RAD_ITS ---
Exam(s) XR ANKLE RT COMPLETE EXAM: XR ANKLE RT COMPLETE CLINICAL HISTORY: fall, medial ankle pain. TECHNIQUE: 2D digital imaging was performed. Three views. COMPARISON: CR XR STANDING ALIGNMENT from 07/02/2022 FINDINGS: BONES: Fracture at the posterior malleolus without significant displacement. Cortical contour deform ity at the medial malleolus could indicate additional nondisplaced fracture. Old fracture of the dis abdifatah tibial shaft. No bony destructive lesion is seen. Bones are demineralized. Plantar calcaneal sp ur. JOINTS: The ankle mortise is normally aligned. SOFT TISSUE: Lower leg and ankle edema. IMPRESSION: Acute fracture of the posterior malleolus. DATA REPOSITORY: RADIATION DOSE DELIVERED:
--- NOTE | 2024-06-20 18:45 | DI.CT_ITS ---
Exam(s) CT LOWER EXTREMITY RT WO EXAM: CT LOWER EXTREMITY RT WO CLINICAL HISTORY: eval for ankle fx and acuity versus chronicity. TECHNIQUE: Imaging Protocol: Axial computed tomography images with coronal and sagittal reformatted images were created and reviewed. CONTRAST MATERIAL: Noncontrast COMPARISON: CR,XR XR ANKLE RT COMPLETE from 06/20/2024 FINDINGS: Exam is limited by image noise and bony demineralization. Bones: Nondisplaced fracture seen through the posterior malleolus, extending in the coronal plane. N o separation at the articular surface. Additional nondisplaced fracture seen extending through the t alus an oblique sagittal plane. No separation at the articular surface. No defect of the talar dome . The fracture extends to the posterior talocalcaneal joint. Additional fracture noted at the media l metaphysis of the distal tibia, above the level of the malleolus. The bones are demineralized. Ol d fracture deformity of the distal tibial shaft. No cellulitic or osteomyelitic changes are identified. No lytic or sclerotic lesions are identified. Joints: There is no significant joint space narrowing. Mild periarticular spurring. Soft Tissues: Lower extremity edema. IMPRESSION: Exam is limited by bony demineralization and increased image noise. Nondisplaced fracture through the posterior malleolus without visible separation at the articular leighton face. Nondisplaced fracture through the the medial tibial metaphysis. Nondisplaced fracture through the posterior talus. RADIATION DOSE DELIVERED: Total DLP DATA REPOSITORY: All CT scans at this facility are submitted to the National Radiology Data Registry (NRDR) Dose Index Registry (DIR) with the [employer] (A[employer]). RADIATION OPTIMIZATION: All CT scans at this facility use at least one of these dose optimization te chniques: automated exposure control; mA and/or kV adjustment per patient size (includes targeted exa ms where dose is matched to clinical indication); or iterative reconstruction.
--- NOTE | 2024-06-20 18:46 | DI.VRAD_ITS ---
PROCEDURE INFORMATION: Exam: XR Right Ankle Exam date and time: 06/20/2024 6:20 PM Age: 63 years old Clinical indication: Right; Patient HX: Fall, medial ankle pain TECHNIQUE: Imaging protocol: Radiologic exam of the right ankle. Views: 3 or more views. COMPARISON: CR XR KNEE RT 3V AP,LAT,RAJ 08/30/2023 9:48 PM FINDINGS: Bones/joints: The bones are demineralized. Chronic appearing healed deformity of the tibial diaphysis. Fracture of the posterior malleolus with a minimal cortical step-off along the cephalad margin. The ankle mortise is intact. Plantar calcaneal spur. Soft tissues: Generalized soft tissue swelling. IMPRESSION: Fracture of the posterior malleolus with a minimal cortical step-off along the cephalad margin. This is very challenging to date radiographically and could be acute, subacute or chronic. Please correlate with the location of tenderness and any prior imaging. Dictated and Authenticated by: Jacqui Hopkins MD. Ordering:CHRISTI Gupta MD
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
--- NOTE | 2024-06-20 19:34 | DI.VRAD_ITS ---
PROCEDURE INFORMATION: Exam: CT Right Lower Extremity, Ankle Exam date and time: 06/20/2024 7:03 PM Age: 63 years old Clinical indication: Screening exam; Eval for FX and acuity vs chronicity TECHNIQUE: Imaging protocol: CT of the right lower extremity without contrast was performed. Exam focused on the ankle. COMPARISON: CR XR ANKLE RT COMPLETE 06/20/2024 6:20 PM FINDINGS: Bones/joints: Chronic healed tibial diaphysis deformity. Vertically oriented acute fracture of the posterior malleolus of the tibia without displacement. The bones are severely demineralized. The ankle mortise is intact. That could be in minor chronic healed deformity of the lateral malleolus which is anatomic. Soft tissues: Severe generalized infiltration throughout the subcutaneous fat. Skin thickening. No focal fluid collection on these noncontrast images. IMPRESSION: 1. Vertically oriented acute fracture of the posterior malleolus of the tibia without displacement. 2. Severe generalized edema and/or cellulitis. 3. The bones are severely demineralized. Dictated and Authenticated by: Jacqui Hopkins MD. Ordering:CHRISTI Gupta MD
[2024-06-20] MEDS: oxyCODONE 10 MG TAB PO (21:53)
[2024-06-21] VITALS (29 sets, daily range): BP systolic 97–134; BP diastolic 48–88; PULSE 73–111; RESP 14–18; TEMP 36.8–37.5; O2SAT 90–98
[2024-06-21] MEDS: oxyCODONE 10 MG TAB PO ×2 (02:01→13:52)
[2024-06-21] MEDS: MORPHine IR 15 MG TAB 7.5 MG PO (07:00)
[2024-06-21] MEDS: ARIPiprazole 5 MG TAB 40 MG PO (08:30)
[2024-06-21] MEDS: Gabapentin 300 MG CAP 600 MG PO (08:39)
[2024-06-21] MEDS: Lisinopril 10 MG TAB PO (08:39)
[2024-06-21] MEDS: hydroCHLOROthiazide 12.5 MG TAB PO (08:39)
[2024-06-21] MEDS: Furosemide 20 MG TAB PO (08:39)
[2024-06-21] MEDS: Acetaminophen 500 MG TAB 1000 MG PO (09:18)
--- NOTE | 2024-06-21 09:52 | IN_ITS ---
PT Notes Visit Reasons: SHRUTHI/ankle injury Inpatient Physical Therapy Evaluation Date: June 21, 2024 Referring Doctor: Alonso Garsia PT Orders: PT CONSULT: Safety consult evaluation for discharge Precautions: Weightbearing as tolerated with walking boot Patient Profile/Admitting Diagnosis: 63-year-old female with a past medical history of type 2 diabetes, COPD, GERD, gastric ulcer, depression, who more recently a few months ago had spinal abscess with surgery, and was eventually discharged from [facility] to [facility] rehab for a month. She was discharged home 2 days ago and while at home yesterday she fell and hit her right ankle. This occurred last night. She was unable to get off the toilet today because of the pain and weakness in the right ankle. She contacted EMS and she was brought to the ER for further assessment. Upon arrival at the ER she complained of pain in the ankle itself, mainly when bearing weight. She denies any other pain or trauma anywhere else. She did not hit her head. She denies any chest pain or shortness of breath. She denies any new or acute back pain. She denies any hip pain. She denies any new numbness or tingling. No other complaints at this time. Patient expressed desire to avoid rehab placement and wishes to go home. States that her baseline includes utilizing front wheel walker and also has a 4 wheeled walker. Diagnostics performed. CT confirms : IMPRESSION: Exam is limited by bony demineralization and increased image noise. Nondisplaced fracture through the posterior malleolus without visible separation at the articular surface. Nondisplaced fracture through the the medial tibial metaphysis. Nondisplaced fracture through the posterior talus. PMHX: PFSH All Active Problems (Updated 06/20/24 @ 21:17 by Alonso Garsia DO) Ankle fracture, right (Acute) Right leg weakness (Acute) Frequent falls (Acute) Traumatic hematoma of right shoulder (Acute 03/25/24) Bilateral cellulitis of lower leg (Acute ~02/2024) Osteoporosis (Chronic) Type 2 diabetes mellitus (Chronic) Microcytic anemia (Chronic) Chronic right-sided lumbar radiculopathy (Chronic) Tinea pedis (Acute) Ambulatory dysfunction (Acute) Multiple falls (Acute) Prediabetes (Acute) Cellulitis (Acute) Lumbar spinal stenosis (Chronic) Hip abductor tendinitis (Acute) Pain in left hip (Acute) COVID-19 (Acute) Fatigue (Acute) Left sided sciatica (Acute) Morbid obesity (Acute) Essential hypertension (Acute) Chronic bilateral low back pain without sciatica (Acute) History of arthroscopy of right knee (Acute 11/08/14) History of cholecystectomy (Acute) History of esophagogastroduodenoscopy (Acute) History of hip replacement (Acute) History of surgical procedure (Acute) Primary osteoarthritis of left knee (Chronic) Hip pain (Acute) COPD (chronic obstructive pulmonary disease) (Chronic) Weight disorder (Chronic) UP AND DOWN Transaminase or LDH elevation (Chronic) Tobacco use disorder (Chronic) Sleep disturbance (Chronic 07/18/05) Sedative, hypnotic or anxiolytic abuse (Chronic) [facility]; ? GRAND MAL SEIZURE, SECONDARY TO BENZO WITHDRAWAL 2006; one episode without any recurrence; occurred due to anxiety prior to incarceration Pneumonia (Acute) Malnutrition (Acute) Injury of head (Chronic 11/16/06) History of back surgery (Chronic 10/17/17) L5-S1 facetectomy and lumbar body fusion Magnadottir UVN Gastroparesis (Chronic 07/18/05) Gastric ulcer (Chronic 08/18/05) 08/24 EGD: DUODENITIS; REACTIVE GASTROPATHY; ANTRAL ULCERATION; HYPERPLASTIC SQUAMOUS MUCOSA; NEG H. PYLORI Depression (Chronic 07/18/05) history of 7 psych admissions 2009 Chronic back pain (Chronic 06/30/14) Anxiety (Chronic 07/18/05) Medical History History of fractured rib 09/12/23 Per [facility] [place]. Left lateral 5th rib, anterior right rib 5&6. -hbCOPD (chronic obstructive pulmonary disease) Surgical History [facility]LCER[facility]OMACH [facility] 2007[facility] [place] [facility] RIGHT/ replacement of hip 2006 [facility] [place]; HORSE ACCIDENTKNEE SURGERY 10/2014 LEFT KNEE; 01/2015 RIGHT KNEEEGD - MAC Cholecystectomy (~06/2013) Social History/Home Situation: Lives with her mother in a single level dwelling with 3 steps to enter railing upon entry. Has grab bars near toilet and bathroom. Current Functional Limitations: Inability to tolerate weightbearing, ambulation, prolonged stance. Unable to utilize front wheeled walker for ambulatory purposes secondary to pain. Equipment Owned/DME: Front wheel walker, 4 wheeled walker. Medications: Home Medications ?Medication ?Instructions ?Recorded ?Confirmed tiotropium 2.5 mcg-olodaterol 2.5 2 puff inhalation DAILY #4 grams 10/02/21 06/20/24 mcg/actuation mist for inhalation (Stiolto Respimat) fluticasone fur. 100 mcg-umeclid 1 inh inhalation DAILY #28 ea 07/16/23 06/20/24 62.5 mcg-vilant 25 mcg inhalat.powder (Trelegy Ellipta) acetaminophen 325 mg tablet 650 mg (2 x 325 mg) PO Q4H PRN PRN 08/26/23 06/20/24 #90 tabs tiotropium bromide 2.5 2 puff inhalation BID #0 grams 08/26/23 06/20/24 mcg/actuation mist for inhalation (Spiriva Respimat) cholecalciferol (vitamin D3) 1,250 1,250 mcg PO QWEEK #12 caps 01/01/24 06/20/24 mcg (50,000 unit) capsule lisinopril 10 0.5 tab PO DAILY #45 tabs 03/12/24 06/20/24 mg-hydrochlorothiazide 12.5 mg tablet doxepin 100 mg capsule 200 mg (2 x 100 mg) PO QHS #180 03/17/24 06/20/24 caps fenofibrate 54 mg tablet 54 mg PO DAILY #90 tabs 04/07/24 06/20/24 simvastatin 20 mg tablet 20 mg PO DAILY #90 tab-caps 04/07/24 06/20/24 aripiprazole 20 mg tablet (Abilify) 40 mg (2 x 20 mg) PO DAILY #180 04/13/24 06/20/24 tabs furosemide 20 mg tablet 20 mg PO DAILY PRN swelling #30 04/13/24 06/20/24 tabs diclofenac sodium 75 mg 75 mg PO BID PRN back pain #180 04/23/24 06/20/24 tablet,delayed release tab-caps fentanyl 100 mcg/hr transdermal 1 patch transdermal Q48H #10 ea 04/23/24 06/20/24 patch fentanyl 12 mcg/hr transdermal 1 patch transdermal Q48H #10 ea 04/23/24 06/20/24 patch oxycodone 10 mg tablet 10 mg PO QHS PRN pain #24 tabs 04/27/24 06/20/24 gabapentin 600 mg tablet 900 mg (1.5 x 600 mg) PO TID #135 04/29/24 06/20/24 tabs Previous Rx's ?Medication ?Instructions ?Recorded tiotropium 2.5 mcg-olodaterol 2.5 2 puff inhalation DAILY #4 grams 10/02/21 mcg/actuation mist for inhalation (Stiolto Respimat) fluticasone fur. 100 mcg-umeclid 1 inh inhalation DAILY #28 ea 07/16/23 62.5 mcg-vilant 25 mcg inhalat.powder (Trelegy Ellipta) acetaminophen 325 mg tablet 650 mg (2 x 325 mg) PO Q4H PRN PRN 08/26/23 #90 tabs tiotropium bromide 2.5 2 puff inhalation BID #0 grams 08/26/23 mcg/actuation mist for inhalation (Spiriva Respimat) cholecalciferol (vitamin D3) 1,250 1,250 mcg PO QWEEK #12 caps 01/01/24 mcg (50,000 unit) capsule lisinopril 10 0.5 tab PO DAILY #45 tabs 03/12/24 mg-hydrochlorothiazide 12.5 mg tablet doxepin 100 mg capsule 200 mg (2 x 100 mg) PO QHS #180 03/17/24 caps fenofibrate 54 mg tablet 54 mg PO DAILY #90 tabs 04/07/24 simvastatin 20 mg tablet 20 mg PO DAILY #90 tab-caps 04/07/24 aripiprazole 20 mg tablet (Abilify) 40 mg (2 x 20 mg) PO DAILY #180 04/13/24 tabs furosemide 20 mg tablet 20 mg PO DAILY PRN swelling #30 04/13/24 tabs diclofenac sodium 75 mg 75 mg PO BID PRN back pain #180 04/23/24 tablet,delayed release tab-caps fentanyl 100 mcg/hr transdermal 1 patch transdermal Q48H #10 ea 04/23/24 patch fentanyl 12 mcg/hr transdermal 1 patch transdermal Q48H #10 ea 04/23/24 patch oxycodone 10 mg tablet 10 mg PO QHS PRN pain #24 tabs 04/27/24 gabapentin 600 mg tablet 900 mg (1.5 x 600 mg) PO TID #135 04/29/24 tabs Subjective: I really do not want to go back to rehab. I just want to go home. Really difficult for me to put any weight down through my right ankle due to pain. Objective: General Observation: Patient lying in hospital bed in ED. Head of bed 45 degrees. Pulse oximeter. Mental Status: Alert and oriented x 3 Pain: 6/10 at rest, 10/10 in stance and with attempt to walk Vital Signs: Per nursing ROM: Right Upper Extremity: Glenohumeral joint flexion and abduction 140 degrees, elbow flexion extension within normal limits, active range of motion right wrist within normal limits Left Upper Extremity: Glenohumeral height flexion and abduction 135 degrees, elbow flexion and extension within normal limits, active range of motion of the left wrist within normal limits Right Lower Extremity: Ankle range of motion not assessed. Patient in walking boot for stabilization purposes. Hip and knee AROM within functional limits Left Lower Extremity: Hip, knee and ankle AROM within functional limits. Strength: Right Upper Extremity: 4/5 glenohumeral flexion, abduction, elbow flexion. 4 - /5 elbow extension. 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 4 -/5 elbow extension. 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 Hip flexion 4/5, knee flexion 4 -/5, knee extension 4/5 ankle dorsiflexion, plantarflexion 4/5 Left Lower Extremity: Unable to perform straight leg raise. Hip flexion 3/5, knee extension 3+/5, knee flexion 4 -/5. Ankle strength not assessed. Sensation: Reports intact sensation light touch to toes right foot. Bed Mobility/Transfers: Supine?sit: Min assist x 1 more so for right lower extremity placement. Sit?stand: Max assist x 1 to front wheel walker with gait belt. Stand?sit: Mod assist x 1 for placement of right lower extremity Gait: Prior to gait, in standing, patient works on some weight shifts for right lower extremity and immediately complains of 10/10 pain. Attempted 2 steps with front wheel walker and unable. This required max assist x 1 with contact-guard via gait belt. Balance: Static Sitting: Normal Dynamic Sitting: Normal Static Standing: Poor Dynamic Standing: Poor Special Tests: Mobility Limitations Standardized Measure [facility] AM-PAC 6 clicks Basic Mobility Inpatient Short Form: Raw Score: 11 standardized Score: [] CMS Score:73% Informed Consent/Education: Patient instructed in purpose of PT consult and plan of care. ASSESSMENT:?? Patient currently in ED secondary to right nondisplaced fracture through posterior malleolus, medial tibial metaphysis and posterior talus right lower extremity. Unfortunately sustained a fall the day she return from extended rehab secondary to spinal surgery. She resides at home with her mother and baseline uses assistive device including front wheel walker and 4 wheeled walker. Patient presents with clinical signs and symptoms consistent with current/admitting diagnoses that have resulted to mobility limitations, gait instability, generalized weakness, and overall ADL decline as demonstrated by the following impairment level findings: 1. Decreased strength to R LE major muscle groups as before 2. Poorly managed pain 3. Impaired activity tolerance 4. High pain level and high anticipation of pain, high anxiety 5. decreased ROM LLE 6. Impaired bone density Impairments are contributing to the following functional limitations: 1. Decline in bed mobility skills 2. Decline in transfer skills 3. Non-ambulatory secondary to pain Given her current status with unmanageable pain with weightbearing she is in no condition to be discharged home for safety reasons. Do recommend placement intermediate care facility for further rehabilitation. Patient is assessed as a 52965 moderate complexity based on the following: History: 63-year-old female with past medical history as indicated above Examination: Demonstrable impairment in strength, balance, and mobility level with underlying impairments and functional limitations as exhibited above as well as deficit score of 73% utilizing the [facility] Mobility Inpatient Short Form Presentation: Evolving Decision Makin moderate complexity Goals: Goals X1 week 1. Supine-Sit : Independent 2. Sit-Supine independent 3. Sit-Stand: min assist with contact-guard to front wheel walker 4. Stand-Sit : min assist with contact-guard from front wheel walker 5. Bed-Chair: Min assist x 1 with contact-guard with front wheel walker 6. Chair-Bed: Min assist x1 contact-guard with front wheel walker 7. Gait: Able to demonstrate ambulation with contact-guard x 1 with front wheel walker 150 feet. 8. Stairs: Able to negotiate 3 stairs with railing contact-guard x 1 9. Independent with home exercise program . Plan of Care/Treatment Plan: 1-2x/day, 7 days/week x 1 week. Plan of care has been reviewed with the CORE DRILLING SUPERVISOR providing the service under Physical Therapy direction. Initiate Physical Therapy intervention for strengthening, bed mobility, transfers, gait, stairs, balance training, use of assistive device. DISCHARGE RECOMMENDATIONS: [] Home with no services [] [] Home with services [specify] [] Home with outpatient PT [] X SNF for continued rehabilitation once cleared medically [] Planning Rn Care [] [] SNF versus LTC based on ability to participate and progress [] TREATMENT CODE/TIME: 40 minutes 9:20-1000 direct one-on-one care. Initial evaluation [id number]. Please sign an return this page within 30 days if you agree with the above POC. Thank you! Physician Signature Date Thank you for the opportunity to participate in the care of this patient. Howard Do PT, DPT [facility]
--- NOTE | 2024-06-21 12:01 | W.PM.HP.N ---
Date of service: 06/21/24 Time of Service: 12:02 Assessment and Plan Assessment and plan (1) Ankle fracture, right: Status: Acute Assessment and plan: walking boot and walker for toe touch weight bearing as tolerated pain management elevation ice therapy outpatient orthopedic consultation (2) Frequent falls: Status: Acute Assessment and plan: fall precautions PT consultation, gait training, falls prevention, etc (3) Type 2 diabetes mellitus: Status: Chronic Assessment and plan: hemoglobin A1C 5.1 in Aug. no surveillance while hospitalized. will change to regular diet. Qualifiers: Diabetes mellitus complication status: without complication Diabetes mellitus longterm insulin use: without watcher automat long goods use Qualified Code(s): E11.9 - Type 2 diabetes mellitus without complications (4) Essential hypertension: Status: Acute Assessment and plan: blood pressure is controlled on lisinopril/hctz continue to monitor and adjust as needed. discussed with DR Whitney History of Present Illness Narrative: right ankle pain, obese female released from rehab 2 days ago, had a mechanical fall at home with isolated injury to right ankle. CT imaging to better evaluate with findings of acute fracture of the posterior malleolus of the tibia without displacement, with possible small chip in the talas as well. She was trialled to reambulate with walking boot but poorly tolerated. PT evaluation recommendations for skilled rehabilitation. Hospitalist services contacted and patient meets criteria for observation overnight for pain management and ongoing PT services. Review of Systems All systems reviewed & are unremarkable except as noted in HPI and below PFSH All Active Problems (Updated 06/20/24 @ 21:17 by Alonso Garsia DO) Ankle fracture, right (Acute) Right leg weakness (Acute) Frequent falls (Acute) Traumatic hematoma of right shoulder (Acute 03/25/24) Bilateral cellulitis of lower leg (Acute ~02/2024) Osteoporosis (Chronic) Type 2 diabetes mellitus (Chronic) Microcytic anemia (Chronic) Chronic right-sided lumbar radiculopathy (Chronic) Tinea pedis (Acute) Ambulatory dysfunction (Acute) Multiple falls (Acute) Prediabetes (Acute) Cellulitis (Acute) Lumbar spinal stenosis (Chronic) Hip abductor tendinitis (Acute) Pain in left hip (Acute) COVID-19 (Acute) Fatigue (Acute) Left sided sciatica (Acute) Morbid obesity (Acute) Essential hypertension (Acute) Chronic bilateral low back pain without sciatica (Acute) History of arthroscopy of right knee (Acute 11/08/14) History of cholecystectomy (Acute) History of esophagogastroduodenoscopy (Acute) History of hip replacement (Acute) History of surgical procedure (Acute) Primary osteoarthritis of left knee (Chronic) Hip pain (Acute) COPD (chronic obstructive pulmonary disease) (Chronic) Weight disorder (Chronic) UP AND DOWN Transaminase or LDH elevation (Chronic) Tobacco use disorder (Chronic) Sleep disturbance (Chronic 07/18/05) Sedative, hypnotic or anxiolytic abuse (Chronic) [facility]; ? GRAND MAL SEIZURE, SECONDARY TO BENZO WITHDRAWAL 2006; one episode without any recurrence; occurred due to anxiety prior to incarceration Pneumonia (Acute) Malnutrition (Acute) Injury of head (Chronic 11/16/06) History of back surgery (Chronic 10/17/17) L5-S1 facetectomy and lumbar body fusion Magn[place]ottir UVN Gastroparesis (Chronic 07/18/05) Gastric ulcer (Chronic 08/18/05) 08/24 EGD: DUODENITIS; REACTIVE GASTROPATHY; ANTRAL ULCERATION; HYPERPLASTIC SQUAMOUS MUCOSA; NEG H. PYLORI Depression (Chronic 07/18/05) history of 7 psych admissions 2009 Chronic back pain (Chronic 06/30/14) Anxiety (Chronic 07/18/05) Medical History History of fractured rib 09/12/23 [place] [facility] Left lateral 5th rib, anterior right rib 5&6. -hb COPD (chronic obstructive pulmonary disease) Surgical History ULCER[place]OMACH [place] 2006[place] Replacement of total knee joint (04/17/17) RIGHT/ Total replacement of hip 2006 [facility] HORSE ACCIDENT KNEE SURGERY 10/2014 LEFT KNEE; 01/2015 RIGHT KNEE EGD - MAC Cholecystectomy (~06/2013) Family History Mother Essential hypertension Hyperlipidemia Stroke Grandfather Essential hypertension Stroke Father No problems noted. Grandmother Essential hypertension Stroke Grandfather Essential hypertension Stroke Grandmother No problems noted. Son No problems noted. Son No problems noted. Social History (Reviewed 06/20/24 @ 18:54 by LISA Minaya Smoking/Tobacco Use Status: Current every day Tobacco Type: cigarettes Second Hand Exposure: No Smoking risk assessment performed?: Yes Alcohol Intake: never Drug use: Never Substance use type: does not use Details: Fent patch on and prescription for PRN oxy Household members: family Housing: apartment Communication Needs: None Pets and animals: Yes Pets and animals: dog(s) Sexually active: No Do you think of yourself as: straight/heterosexual What is your relationship status?: How often do you talk on the phone with friends or family?: three or more times per week How often do you get together with friends or relatives?: decline to answer How often do you attend hoahaoism or yarsani services?: 1-3 times per year Do you belong to any clubs or organized social groups?: no Panel score (0-1 are the most socially isolated patients): 1 What type of physical activity do you participate in: none Nikki/Protestant: Moravian Seatbelt use: always Drive intox or ride w/intox 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 100 mcg-umeclid 1 inh inhalation DAILY #28 ea 07/16/23 06/20/24 Rx 62.5 mcg-vilant 25 mcg inhalat.powder (Trelegy Ellipta) acetaminophen 325 mg tablet 650 mg (2 x 325 mg) PO Q4H PRN PRN 08/26/23 06/20/24 Rx #90 tabs tiotropium bromide 2.5 2 puff inhalation BID #0 grams 08/26/23 06/20/24 Rx mcg/actuation mist for inhalation (Spiriva Respimat) cholecalciferol (vitamin D3) 1,250 1,250 mcg PO QWEEK #12 caps 01/01/24 06/20/24 Rx mcg (50,000 unit) capsule lisinopril 10 0.5 tab PO DAILY #45 tabs 03/12/24 06/20/24 Rx mg-hydrochlorothiazide 12.5 mg tablet doxepin 100 mg capsule 200 mg (2 x 100 mg) PO QHS #180 03/17/24 06/20/24 Rx caps fenofibrate 54 mg tablet 54 mg PO DAILY #90 tabs 04/07/24 06/20/24 Rx simvastatin 20 mg tablet 20 mg PO DAILY #90 tab-caps 04/07/24 06/20/24 Rx aripiprazole 20 mg tablet (Abilify) 40 mg (2 x 20 mg) PO DAILY #180 04/13/24 06/20/24 Rx tabs furosemide 20 mg tablet 20 mg PO DAILY PRN swelling #30 04/13/24 06/20/24 Rx tabs diclofenac sodium 75 mg 75 mg PO BID PRN back pain #180 04/23/24 06/20/24 Rx tablet,delayed release tab-caps fentanyl 100 mcg/hr transdermal 1 patch transdermal Q48H #10 ea 04/23/24 06/20/24 Rx patch fentanyl 12 mcg/hr transdermal 1 patch transdermal Q48H #10 ea 04/23/24 06/20/24 Rx patch oxycodone 10 mg tablet 10 mg PO QHS PRN pain #24 tabs 04/27/24 06/20/24 Rx gabapentin 600 mg tablet 900 mg (1.5 x 600 mg) PO TID #135 04/29/24 06/20/24 Rx tabs Results Last Vital Signs Temp 37.4 C 06/20/24 18:07 Pulse 81 06/21/24 10:41 Resp 16 06/21/24 04:25 BP 129/70 06/21/24 10:41 Pulse Ox 96 06/21/24 10:41 Time Spent Time spent with Patient: 55-74 minutes Time was spent: preparing to see the patient(eg.review tests), obtaining and/or reviewing separately otained hiistory, ordering medications,tests, procedures, indepentently interpreting results, counseling the patient and care coordination
--- NOTE | 2024-06-21 12:15 | W.PC.ACHO ---
Registration Status: Primary Language: Preferred Language: ED Information & Data Chief Complaint Cellulitis 06/20/24 18:56 Triage Note pt d/c from [facility] 06/20/24 18:02 yesterday for recovery from cellulitis, lives with mother (81), fell/slow slide to ground in bathroom last night, unable to get off toilet today r/t leg weakness/right leg pain, no deformity but MARIELA LE red/ swollen and warm to touch, pain 5/10 but has 112mct fent patch and took 15mg oxy at 1700, temp 99.4 orally on arrival, other VSS. Medical / Surgical History (Last Reviewed 06/20/24 @ 18:54 by Alonso Garsia DO) History of fractured rib COPD (chronic obstructive pulmonary disease) (Last Reviewed 06/20/24 @ 18:54 by Alonso Garsia DO) ULCER/STOMACH SURGERY Replacement of total knee joint (04/17/17) Total replacement of hip KNEE SURGERY EGD - MAC Cholecystectomy (~06/2013) Most Recent Vital Signs Temperature 37.4 C 06/20/24 18:07 Temperature Source Oral 06/20/24 18:07 Pulse 79 06/21/24 11:31 Pulse 96 H 06/21/24 00:30 Respiratory Rate 16 06/21/24 04:25 Respiratory Effort Normal, Non-Labored 06/20/24 18:06 Blood Pressure 110/66 06/21/24 11:31 Blood Pressure Mean 81 06/21/24 11:31 Blood Pressure Position Supine 06/20/24 18:02 Pulse Oximetry 93 06/21/24 11:15 Oxygen Delivery Method Room Air 06/21/24 04:25 Oxygen Flow Rate 0 06/21/24 04:25 Pain Level 7 06/21/24 09:18 Allergies No Known Drug Allergies Allergy (Unknown, Verified 06/20/24 18:02) none Precautions Isolation Standard precaution 06/20/24 18:06 Active Medications Generic Name Dose Route Start Last Admin Trade Name Freq PRN Reason Stop Dose Admin Aripiprazole 40 mg 06/21/24 08:30 06/21/24 08:30 Aripiprazole 5 Mg Tab PO 40 mg DAILY TAINA Administration Fentanyl 100 mcg 06/20/24 21:00 06/21/24 00:34 Fentanyl 100 Mcg Patch TD Not Given Q72H TAINA Furosemide 20 mg 06/21/24 08:30 06/21/24 08:39 Furosemide 20 Mg Tab PO 20 mg DAILY TAINA Administration Gabapentin 600 mg 06/21/24 08:30 06/21/24 08:39 Gabapentin 300 Mg Cap PO 600 mg TID TAINA Administration Hydrochlorothiazide 12.5 mg 06/21/24 08:30 06/21/24 08:39 Hydrochlorothiazide 12.5 Mg Tab PO 12.5 mg DAILY TAINA Administration Lisinopril 10 mg 06/21/24 08:30 06/21/24 08:39 Lisinopril 10 Mg Tab PO 10 mg DAILY TAINA Administration Tiotropium Orrum/Olodaterol 2 puff 06/21/24 08:30 06/21/24 08:41 Tiotropium/Olodaterol 10 Puff Inhaler IH Not Given DAILY TAINA Intake and Output - 24 Hour Total 06/20/24 17:46 thru 06/21/24 10:47 Output Total 1400 Balance -1400 Weight 95.254 kg Output: Urine 1400 Other: Urine Color Yellow Urine Appearance Clear Urinary Catheter Urinary Catheter Date of 06/21/24 Insertion [Urethral (Paige)] Time of insertion [Urethral ( 10:47 Paige)] Falls Risk Assessment History of Falls Previous History 06/20/24 18:10 Contributing Factors Impairments,Incontinence, 06/20/24 18:10 Medications Ambulatory Aids Uses ambulatory device 06/20/24 18:10 Tubes/Lines None 06/20/24 18:10 Gait Evaluation W/no contributing factors 06/20/24 18:10 Cognition No cognitive impairment 06/20/24 18:10 Fall Total Score 49 06/20/24 18:10 Level of Risk Moderate Risk 06/20/24 18:10 Problems (Last Reviewed 06/20/24 @ 18:54 by Alonso Garsia DO) Ankle fracture, right (Acute) Frequent falls (Acute) Type 2 diabetes mellitus (Chronic) Essential hypertension (Acute) v v v v v v v v v Sending and/or Receiving Nurses: Please use comment section below to note any information pertinent to the patient hand-off not included above. Information / Comments: A&Ox3, 18F [address], patent, No iV access all medications given PO, able to stand pivot to commode. Bilateral lower extremities, warm, red and swollen. Report received from: Clementina RICHARDSON from ER at 1214
[2024-06-21] MEDS: Acetaminophen 325 MG TAB 650 MG PO ×3 (13:26→20:12)
[2024-06-21] MEDS: fentaNYL 100 MCG PATCH TD (13:26)
[2024-06-21] MEDS: Gabapentin 300 MG CAP 900 MG PO ×2 (13:26→20:13)
[2024-06-21] MEDS: fentaNYL 12 MCG PATCH TD (13:27)
[2024-06-21] MEDS: oxyCODONE 10 MG TAB 15 MG PO ×2 (17:48→21:58)
--- NOTE | 2024-06-21 18:04 | NUR.NOTE ---
Nursing Note: Walking boot removed at 1805 while patient is in bed resting. ice applied. Per Leatha Suárez MARKET NEWS REPORTER okay to remove while in bed. MACEY RN
[2024-06-21] MEDS: Doxepin 50 MG CAP 100 MG PO (21:59)
[2024-06-22] MEDS: oxyCODONE 10 MG TAB 15 MG PO ×5 (04:23→21:25)
[2024-06-22] MEDS: Diclofenac Sodium 75 MG TABEC PO (04:25)
[2024-06-22 04:26] VITALS: BP 122/77; PULSE 88; RESP 18; TEMP 36.9; O2SAT 99
[2024-06-22 07:45] VITALS: BP 110/62; PULSE 74; RESP 18; TEMP 37.4; O2SAT 94
[2024-06-22] MEDS: Acetaminophen 325 MG TAB 650 MG PO ×4 (08:26→21:24)
[2024-06-22] MEDS: Gabapentin 300 MG CAP 900 MG PO ×3 (08:29→21:25)
[2024-06-22] MEDS: Furosemide 20 MG TAB PO (08:29)
[2024-06-22] MEDS: Lisinopril 10 MG TAB PO (08:29)
[2024-06-22] MEDS: hydroCHLOROthiazide 12.5 MG TAB PO (08:30)
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
--- NOTE | 2024-06-22 10:40 | PTTR_ITS ---
PT Notes Visit Reasons: Right ankle pain,intractable Inpatient Physical Therapy Treatment Note Date: 06/22/2024 Precautions: Fall risk. Standard precautions. Per Dr. Jones as of 06/22/2024, protected weight bearing on the R LE with fracture boot on the R and post-op shoe on the L (to balance leg length), use FWW. Subjective: 5/10 pain in the R leg and foot with weight bearing. Fatigued at end of walk. Complained of pain in low back too at 5/10. Concerned about how she will tackle the three entrance steps at home. Prefers to go home if safe to do so. Objective: General Observation: Patient resting in bed for both sessions when PT came in. High BMI. Mental Status: Alert and oriented x 3 Pain: In AM 7-8/10/ at rest, 5-6/10 with weight bearing in the PM Vital Signs: Closely monitored by nursing staff Bed Mobility/Transfers: Minimal cueing provided for use of B hands as needed for support, movement sequence, AD management, and posture to reduce fall risk and minimize pain report Supine?sit: stand by assist with definite use of hands for support, HOB at 45 degrees Sit?stand: minimal assist using FWW Stand?sit: contact guard assist with FWW Bed to chair: minimal assist with FWW using stand pivot transfer with fracture boot on R, post-op shoe on L and using FWW in the morning oh Gait: Instructed patient with safe performance of proteceted weight bearing through the R LE with fracture boot and FWB through L LE with post op shoe, FWW needed. patietn covered about 15 feet, turned around slowly towards the L side and then walked another 15 feet back to the edge of bed, turned towards L side and then finally sat on edge of bed after adequately backing up. Emphasized putting weight through hands while right before midstance through R LE to ensure WB precaution. Reinforced optimizing trunk alignment and advancing R LE not too far each time. Pain report of 5-6/10 which subsided with rest. No LOB. No SOB. Balance: Static Sitting: Normal Dynamic Sitting: Normal Static Standing: Fair Dynamic Standing: Fair ASSESSMENT:?? Patient recently discharged from SNF where she stayed for a month of rehabilitation. Fell 2 days after she went home and sustained a lateral malleolus, tibial metaphysis, and posterior talus as read in CT scan on 06/21/2024. Per Dr. Jones, patient is to do protected weight bearing on the R LE with fracture boot. PT put in a post op shoe on the L side to equalize leg length as the fracture boot added at least 2 inches to the R leg length an dpatient does not have shoes that she brought with her here. Patient required assist of 1 for short distance ambulation using FWW with cueing provided for appropriate weight distribution through extremities. Will plane on practicing on steps tomorrow morning if this afternoon's x-rays are okay and with clearance from orthopedic surgeon. Goals: Goals X1 week 1. Supine-Sit : Independent 2. Sit-Supine independent 3. Sit-Stand: min assist with contact-guard to front wheel walker 4. Stand-Sit : min assist with contact-guard from front wheel walker 5. Bed-Chair: Min assist x 1 with contact-guard with front wheel walker 6. Chair-Bed: Min assist x1 contact-guard with front wheel walker 7. Gait: Able to demonstrate ambulation with contact-guard x 1 with front wheel walker 150 feet. 8. Stairs: Able to negotiate 3 stairs with railing contact-guard x 1 9. Independent with home exercise program . Plan of Care/Treatment Plan: 1-2x/day, 7 days/week x 1 week. Do stairs negotiation training to determine ability of patient to return to home with current mobility level and WB precaution. Review HEP prior to discharge. DISCHARGE RECOMMENDATIONS: [] Home with no services [] [] Home with services [specify] [] Home with outpatient PT [] [] SNF for continued rehabilitation once cleared medically [] Casing Worker Care [] [] SNF versus LTC based on ability to participate and progress [] [X] HH PT vs short-term rehab based on progress towards goals TREATMENT CODE/TIME: Session 1--10611 x 32 minutes for 2 units (10;40-11:12). Session 2--63054 x 20 minutes for 1 unit (12:37-13:07).
[2024-06-22] MEDS: Fenofibrate, Micronized 48 MG TAB PO (12:50)
[2024-06-22 15:17] VITALS: BP 116/64; PULSE 78; RESP 16; TEMP 36.5; O2SAT 94
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
--- NOTE | 2024-06-22 18:50 | W.PM.PROGNOT ---
Date of Service Date of service: 06/22/24 Time of Service: 12:00 Assessment and Plan Assessment and plan (1) Ankle fracture, right: Status: Acute Assessment and plan: walking boot and walker for toe touch weight bearing as tolerated pain management elevation ice therapy orthopedic consultation PT (2) Frequent falls: Status: Acute Assessment and plan: fall precautions PT consultation, gait training, falls prevention, etc (3) Type 2 diabetes mellitus: Status: Chronic Assessment and plan: hemoglobin A1C 5.1 in Aug. no surveillance while hospitalized. regular diet. Qualifiers: Diabetes mellitus manager terminal insulin use: without penitentiary use Diabetes mellitus complication status: without complication Qualified Code(s): E11.9 - Type 2 diabetes mellitus without complications (4) Essential hypertension: Status: Acute Assessment and plan: blood pressure is controlled on lisinopril/hctz continue to monitor and adjust as needed. discussed with Dr. Huitron and Dr Jones Subjective Subjective Patient reports: no new complaints Exam Narrative Exam Narrative: 1.Const: Well-nourished, Well-developed, appearing stated age 2.Eyes: PERRL, no conjunctival injection, and symmetrical lids. 3.ENT: Atraumatic external nose and ears. Moist MM. Neck: Symmetric, trachea midline, No thyromegaly. 4.CVS: +S1/S2, Peripheral pulses 2+ and equal in all extremities. Brisk capillary refill in all extremities 5.RESP: Unlabored respiratory effort. Clear to auscultation bilaterally. No wheezes rales or rhonchi 6.GI: Soft, Nontender/Nondistended, No hepatosplenomegaly. No guarding or rebound. 7.MSK: Bilateral extremities demonstrate +1 pitting edema. Mild chronic venous stasis staining bilaterally. Right ankle demonstrates mild swelling and tenderness at the medial malleolus, mild edema. Notable pain on plantarflexion. Minimal pain with dorsiflexion. Minimal pain with eversion and inversion of the ankle. 8.Skin: Warm, Dry. No rashes or lesions. 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 Sensation grossly intact, no focal neurologic deficits. 10.Psych: (AAO) x3. Appropriate mood and affect Objective Last Vital Signs Temp 36.5 C 06/22/24 15:17 Pulse 78 06/22/24 15:17 Resp 16 06/22/24 15:17 BP 116/64 06/22/24 15:17 Pulse Ox 94 06/22/24 15:17 Time Spent with Patient Time Spent with Patient: 25-34 minutes Time was spent: preparing to see the patient(eg.review tests), ordering medications,tests, procedures, referring, communicating with other health acute care occupational therapist, indepentently interpreting results, counseling the patient and care coordination
--- NOTE | 2024-06-22 19:00 | DI.RAD_ITS ---
Exam(s) XR ANKLE RT COMPLETE EXAM: XR ANKLE RT COMPLETE CLINICAL HISTORY: eval frx after mobilization. TECHNIQUE: 2D digital imaging was performed of the right ankle. Four images were obtained. AP, lat eral and oblique views were obtained. COMPARISON: CT CT LOWER EXTREMITY RT WO from 06/20/2024 CR,XR XR ANKLE RT COMPLETE from 06/20/2024 FINDINGS: BONES: There are findings of an old healed distal right tibial fracture. The bones are osteopenic. The deformity at the medial metaphysis of the distal tibia is again seen. The talar fracture was bes t appreciated on the CT scan of the leg. The minimally displaced posterior malleolar fracture is aga in seen. No bony destructive lesion is seen. There is a plantar calcaneal spur. JOINTS: The ankle mortise is normally aligned. Degenerative changes are seen in the foot. SOFT TISSUE: There is soft tissue swelling of the ankle particularly medially. IMPRESSION: Stable appearance of the ankle with minimally displaced posterior malleolar fracture and deformity in volving the medial aspect of the distal tibia. DATA REPOSITORY: RADIATION DOSE DELIVERED:
--- NOTE | 2024-06-22 19:48 | DI.VRAD_ITS ---
PROCEDURE INFORMATION: Exam: XR Right Ankle Exam date and time: 06/22/2024 6:51 PM Age: 63 years old Clinical indication: Other: Eval frx after mobilization TECHNIQUE: Imaging protocol: Radiologic exam of the right ankle. Views: 3 or more views. COMPARISON: CT LOWER EXTREMITY RT WO 06/20/2024 7:03 PM FINDINGS: Bones/joints: Again noted is mild osteopenia. Again noted is chronic appearing deformity of the distal tibial diaphysis, suggesting old healed fracture. There is chronic appearing mild deformity of the medial malleolus as well, unchanged, likely old healed fracture. Again noted is a small minimally displaced posterior malleolar fracture, unchanged in alignment, likely with some interval healing since prior study. There is moderate degenerative change of the dorsal midfoot, as on prior study. There is a small plantar calcaneal spur. Soft tissues: Again noted is mild soft tissue swelling around the medial malleolus. IMPRESSION: No change in alignment of small minimally displaced posterior malleolar fracture, with findings suggesting some degree of interval healing. Dictated and Authenticated by: Eligio Infante MD. Ordering:JORDAN Braun MD
[2024-06-22] MEDS: Doxepin 50 MG CAP 100 MG PO (21:26)
[2024-06-22] MEDS: Simvastatin 20 MG TAB PO (21:26)
[2024-06-22 22:10] VITALS: BP 108/66; PULSE 92; RESP 16; TEMP 37; O2SAT 91
[2024-06-23] MEDS: oxyCODONE 10 MG TAB 15 MG PO ×4 (06:44→23:07)
[2024-06-23] MEDS: Diclofenac Sodium 75 MG TABEC PO (06:44)
[2024-06-23 07:42] VITALS: BP 133/72; PULSE 100; RESP 18; TEMP 37.9; O2SAT 92
--- NOTE | 2024-06-23 08:10 | PT.INTREAT ---
PT Notes Visit Reasons: Right ankle pain,intractable Inpatient Physical Therapy Treatment Note Date: 06/23/2024 Precautions: Fall risk. Standard precautions. Per Dr. Jones as of 06/22/2024, protected weight bearing on the R LE with fracture boot on the R and post-op shoe on the L (to balance leg length), use FWW. Subjective: 5-6/10 pain in the R leg and foot with weight bearing. Minimally atigued at end of walk. Hoping to stay for another day to do more training with walking and stairs. Continues to be anxious abour doing the stairs as she only has one rail and she prefers not use the cane. Planning on coming into house with stair lift assist. Willing to see how she will do tomorrow morning with stairs training before she goes home. Likes to use the bariatric walker as she feels more stable. Objective: General Observation: Patient resting in bed for both sessions when PT came in. High BMI. Mental Status: Alert and oriented x 3 Pain: In AM 5/10 with movement Vital Signs: Closely monitored by nursing staff Bed Mobility/Transfers: Minimal cueing provided for use of B hands as needed for support, movement sequence, AD management, and posture to reduce fall risk and minimize pain report Supine?sit: stand by assist with definite use of hands for support, HOB at 45 degrees Sit?stand: stand by assist Stand?sit: stand by assist Bed to chair: stand by assist with FWW Gait: Instructed patient with safe performance of protected weight bearing through the R LE with fracture boot and FWB through L LE with post op shoe, FWW needed. Covered about 30 feet in the morning using the regular walker and about 40 feet in the afternoon using the bariatric walker. Emphasized putting weight through hands while right before midstance through R LE to ensure WB precaution. Reinforced optimizing trunk alignment and advancing R LE not too far each time. Pain report of 5/10 which subsided with rest. No LOB. No SOB. Stairs: Patient was brought to the therapy room to attempt stairs training. Patient backed out on doing it, evidently very apprehensive despite safe technique shown to her. She verbalized that she plans to have chair lift assist to get into house when she goes home tomorrow however would like to see how she feels tomorrow morning during last PT session to seeh if she would want to try. Balance: Static Sitting: Normal Dynamic Sitting: Normal Static Standing: Fair Dynamic Standing: Fair ASSESSMENT:?? Demonstrated improved functional performance, increased distance coverage, and better posture using bariatric FWW this afternoon. HAs strong reservatins about trying out the stairs despite safe technique and persuasion of PT. Will revisit and offer stair performance tomorrow morning within half an hour after she is pre-medicated. Patient recently discharged from SNF where she stayed for a month of rehabilitation. Fell 2 days after she went home and sustained a lateral malleolus, tibial metaphysis, and posterior talus as read in CT scan on 06/21/2024. Per Dr. Jones, patient is to do protected weight bearing on the R LE with fracture boot. PT put in a post op shoe on the L side to equalize leg length as the fracture boot added at least 2 inches to the R leg length an dpatient does not have shoes that she brought with her here. Patient required assist of 1 for short distance ambulation using FWW with cueing provided for appropriate weight distribution through extremities. Plan of Care/Treatment Plan: 1-2x/day, 7 days/week x 1 week. Continue with HH PT to ensure safety training with all mobility performance at home in compliance with WB precaution by orthopedic surgeon using needed devices for walking. Patient will be provided with bariatric FWW to ensure independence and reduce fall risk at home. DISCHARGE RECOMMENDATIONS: [] Home with no services [] [] Home with services [specify] [] Home with outpatient PT [] [] SNF for continued rehabilitation once cleared medically [] [facility] [] [] SNF versus LTC based on ability to participate and progress [] [X] HH PT vs short-term rehab based on progress towards goals TREATMENT CODE/TIME: Session 1--76781 x 38 minutes for 3 units (8;10-8:48). Session 2--[id number] x 23 minutes for 2 units (14:12-14:35).
[2024-06-23] MEDS: hydroCHLOROthiazide 12.5 MG TAB PO (09:02)
[2024-06-23] MEDS: Acetaminophen 325 MG TAB 650 MG PO ×4 (09:02→19:31)
[2024-06-23] MEDS: Gabapentin 300 MG CAP 900 MG PO ×3 (09:02→19:31)
[2024-06-23] MEDS: Lisinopril 10 MG TAB PO (09:03)
[2024-06-23] MEDS: Furosemide 20 MG TAB PO (09:03)
--- NOTE | 2024-06-23 11:06 | PDOC.CMDIS ---
Date of service: 06/23/24 Time of Service: 11:06 LACE Index Scoring Tool Questions: Length of Stay (in days): 2 Was the patient admitted via the E.D.?: Yes Comorbidities: Diabetes w/o Complication and Chronic Pulmonary Disease E.D. Visits: 3 Answers: Total Score: 11 Risk of Readmission: High Risk Care Management Discharge Plan Reason for Hospitalization: Right ankle pain, intractable Discharge Plan: Maryjane will return home today with resumption of HH PT, OT, and addition of WINDOW TRIMMER. She will transport via private vehicle by a friend. She will follow up with her PCP and discharge plan of care. Patient/Family Education Needs: Review discharge instructions and limitations, discussion of self care needs including ask me three. Services Needed at Discharge: Home Health Care Services (resume HH PT, OT, add WINDOW TRIMMER) [facility] Health Related Social Needs: No Data to Display
[2024-06-23] MEDS: fentaNYL 100 MCG PATCH TD (15:14)
[2024-06-23] MEDS: fentaNYL 12 MCG PATCH TD (15:15)
[2024-06-23 15:50] VITALS: BP 109/68; PULSE 76; RESP 18; TEMP 36.9; O2SAT 91
[2024-06-23] MEDS: ZOLEDRONIC ACID/MANNITOL/WATER 5 MG/100 ML BTL 300 MG IVPB (16:01)
--- NOTE | 2024-06-23 16:19 | CMPROGNOTE_ITS ---
Date of service: 06/23/24 Time of Service: 16:19 Care Management Progress Note Progress Note Text Progress Note Text: Maryjane was sitting up in bed when CM met with her. She stated that she was concerned about going home today, as she feels she isn't ready. Per PT, she will benefit from another night to provide an opportunity for her to continue working with PT on stairs and mobility using a walking boot. Maryjane called her son, Sony, with CM in the room, and together Maryjane's discharge plan was discussed. Sony brought up concerns about his mother falling again, and the potential for rehab. CM reviewed the barriers to rehab, including the lack of a three night inpatient stay, that she has used at least the first 20 MCR days in the past month at [facility], and that she does not want to go back to rehab. CM verified that Maryjane is an active [employer] member, which will waive the three night stay, but she will likely have a 20% copay, as she has recently used her 20 MCR days which would be paid in full. Maryjane stated that she prefers to return home, and feels safe, especially after having the ability to work with PT again prior to discharge. She stated that her mother will pick her up tomorrow at 11am. CM provided this information to the provider, who will plan to discharge her in the morning. CM will continue to follow. Discharge Potential Discharge Needs: PCP F/U Appt Anticipated Barriers to Discharge: None Identified Patient/Family Education Needs: Review discharge instructions, discuss Ask Me Three Transportation: Private vehicle Plan: Anticipate Maryjane will return home with a resumption of HH PT, OT. She will likely transport via private vehicle by her mother. She will follow up with her PCP and discharge plan of care. CM will continue to follow. SDOH(Care Management) Screening Will the Patient Participate in the Screening?: Yes Do you worry about having a steady place to live?: no Problems where you live: no known problems In the past 12 months, have you had to go without electric, gas, oil or water in your home?: no Have you or anyone in your house had to go without enough food to eat?: no Has lack of transportation kept you from medical appointments or from doing things needed for daily living?: no Has anyone in your support network made you feel unsafe for any reason?: no
[2024-06-23] MEDS: Enoxaparin 40 MG/0.4 ML SYR SC (16:20)
--- NOTE | 2024-06-23 16:41 | NUR.NOTE ---
Nursing Note: Patient has not had labs done since April of this year. Lovenox scheduled to be given and provider notified by primary nurse. Policy was reviewed by RN and shown to discharge coordinator. Provider and charge nurse said that it was not indicated for labs to be drawn and platelet levels are fine from history and nurse was told to give the anticoagulant.
--- NOTE | 2024-06-23 16:52 | PGE_ITS ---
Date of Service Date of service: 06/23/24 Time of Service: 16:52 Assessment and Plan Assessment and plan (1) Ankle fracture, right: Status: Acute Assessment and plan: walking boot and walker for toe touch weight bearing as tolerated pain management elevation ice therapy orthopedic consultation PT Zoledronic acid 5 mg x 1 per recommendation of orthopedics (2) Frequent falls: Status: Acute Assessment and plan: fall precautions PT consultation, gait training, falls prevention, etc (3) Type 2 diabetes mellitus: Status: Chronic Assessment and plan: hemoglobin A1C 5.1 in Aug. no surveillance while hospitalized. regular diet. Qualifiers: Diabetes mellitus ad terminal makeup operator insulin use: without ad terminal makeup operator use Diabetes mellitus complication status: without complication Qualified Code(s): E11.9 - Type 2 diabetes mellitus without complications (4) Essential hypertension: Status: Acute Assessment and plan: blood pressure is controlled on lisinopril/hctz continue to monitor and adjust as needed. discussed with Dr. Huitron and Dr Jones Subjective Subjective Patient reports: no new complaints Exam Narrative Exam Narrative: 1.Const: Well-nourished, Well-developed, appearing stated age 2.Eyes: PERRL, no conjunctival injection, and symmetrical lids. 3.ENT: Atraumatic external nose and ears. Moist MM. Neck: Symmetric, trachea m idline, No thyromegaly. 4.CVS: +S1/S2, Peripheral pulses 2+ and equal in all extremities. Brisk capillary refill in all extremities 5.RESP: Unlabored respiratory effort. Clear to auscultation bilaterally. No wheezes rales or rhonchi 6.GI: Soft, Nontender/Nondistended, No hepatosplenomegaly. No guarding or rebound. 7.MSK: Bilateral extremities demonstrate +1 pitting edema. Mild chronic venous stasis staining bilaterally. Right ankle demonstrates mild swelling and tenderness at the medial malleolus, mild edema. Notable pain on plantarflexion. Minimal pain with dorsiflexion. Minimal pain with eversion and inversion of the ankle. 8.Skin: Warm, Dry. No rashes or lesions. 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 Sensation grossly intact, no focal neurologic deficits. 10.Psych: (AAO) x3. Appropriate mood and affect Objective Last Vital Signs Temp 36.9 C 06/23/24 15:50 Pulse 76 06/23/24 15:50 Resp 18 06/23/24 15:50 BP 109/68 06/23/24 15:50 Pulse Ox 91 L 06/23/24 15:50 Time Spent with Patient Time Spent with Patient: 25-34 minutes Time was spent: preparing to see the patient(eg.review tests), ordering medications,tests, procedures, referring, communicating with other health progressive care manager, indepentently interpreting results, counseling the patient and care coordination
--- NOTE | 2024-06-23 16:53 | PGE_ITS ---
Date of Service Date of service: 06/23/24 Time of Service: 12:30 Assessment and Plan Assessment and plan (1) Fracture of right talus: Status: Acute Assessment and plan: Maryjane is a 63 year old female with significant medical comorbidities who has suffered fractures around the right ankle, largely related to really poor bone and likely, or at least clinical, osteoporosis. These fractures are associated with focal areas of osteoporotic lesions, yet they don't seem to invovled the weight bearing portions of the subtalar or tibiotalar joint. Post mobilization x-rays yesterday do not show any change in position. Thus, we will continue with weightbearing as tolerated for short distances so she may be able to transition to home. This would be very unlikely I would recommend close follow- up of the edema and associated errythema. There is the possibility of further displacement or fracture about the right ankle but given that it doesn't involve the mechanical portions of the joint we will trial protected weight bearing and then check follow-up x-rays. I would also say that she needs treatment for her osteoporosis and will discuss with hospitalist about potentially starting that.. (2) Pathological fracture of ankle: Status: Acute (3) Fracture of posterior malleolus of right tibia: Status: Acute (4) Ankle fracture, right: Status: Acute Subjective Subjective Interval history since last seen: Maryjane reports to be doing well. She has been able to mobilize with manageable pain. No new symptoms. No increasing pain at the area of hyperemia of the distal right leg. X-rays after mobilization yesterday were reviewed and do not show any signs of fracture displacement or diastases. Exam Narrative Exam Narrative: Resting in the bed. No acute distress. Evaluation of the right leg shows 3+ pitting edema. There is notable swelling of the distal leg from about the proximal leg down through the foot. There is an area of hyperemia about the distal aspect of the right leg however nontender to palpation. 3 small serous blisters. Objective Last Vital Signs Temp 36.9 C 06/23/24 15:50 Pulse 76 06/23/24 15:50 Resp 18 06/23/24 15:50 BP 109/68 06/23/24 15:50 Pulse Ox 91 L 06/23/24 15:50 Time Spent with Patient Time Spent with Patient: <25 minutes Time was spent: preparing to see the patient(eg.review tests) and referring, communicating with other health rn progressive care unit
[2024-06-23] MEDS: Simvastatin 20 MG TAB PO (19:31)
[2024-06-23] MEDS: Doxepin 50 MG CAP 100 MG PO (19:31)
[2024-06-23 23:19] VITALS: BP 110/68; PULSE 80; RESP 18; TEMP 36.7; O2SAT 91
[2024-06-24 07:47] VITALS: BP 164/77; PULSE 132; RESP 18; TEMP 39; O2SAT 91
[2024-06-24] MEDS: Furosemide 20 MG TAB PO (07:52)
[2024-06-24] MEDS: Gabapentin 300 MG CAP 900 MG PO ×2 (07:52→13:10)
[2024-06-24] MEDS: oxyCODONE 10 MG TAB 15 MG PO ×2 (07:52→13:10)
[2024-06-24] MEDS: Acetaminophen 325 MG TAB 650 MG PO ×2 (07:52→12:13)
[2024-06-24] MEDS: hydroCHLOROthiazide 12.5 MG TAB PO (07:53)
[2024-06-24] MEDS: Lisinopril 10 MG TAB PO (07:53)
[2024-06-24 08:11] VITALS: PULSE 112
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
[2024-06-24 09:33] VITALS: BP 141/94; PULSE 130; RESP 18; TEMP 37; O2SAT 92
--- NOTE | 2024-06-24 09:51 | PT.INTREAT ---
PT Notes Visit Reasons: Right ankle pain,intractable Inpatient Physical Therapy Treatment Note Date: 06/24/2024 Precautions: Fall risk. Standard precautions. Per Dr. Jones as of 06/22/2024, protected weight bearing on the R LE with fracture boot on the R and post-op shoe on the L (to balance leg length), use FWW. Subjective: In pain today at 7-8/10. Anxious about going home with paiin this much. Per Nurse Kanwal, patient has been given all her pain meds about an hour ago. Still willing to go for a walk and test her new bariatric walker. Continues to be anxious about doing the stairs as she only has one rail and she prefers not use the cane. Planning on coming into house with stair lift assist. Willing to see how she will do tomorrow morning with stairs training before she goes home. Likes to use the bariatric walker as she feels more stable. Objective: General Observation: Patient sitting at edge of bed. Mental Status: Alert and oriented x 3 Pain: As above Vital Signs: Closely monitored by nursing staff Bed Mobility/Transfers: Minimal cueing provided for use of B hands as needed for support, movement sequence, AD management, and posture to reduce fall risk and minimize pain report Supine?sit: stand by assist with definite use of hands for support, HOB at 45 degrees Sit?stand: stand by assist Stand?sit: stand by assist Bed to chair: stand by assist with FWW Gait: Instructed patient with safe performance of protected weight bearing through the R LE with fracture boot and FWB through L LE with post op shoe, FWW needed. Covered about 50 feet the bariatric walker. Emphasized putting weight through hands right before midstance through R LE to ensure WB precaution. Reinforced optimizing trunk alignment and advancing R LE not too far each time. No LOB. No SOB. Fatigued after activity. Stairs: Refused. Patient does not feel safe tackling the stairs despite technique given. Verbalizes that boot is too heavy to lift. Balance: Static Sitting: Normal Dynamic Sitting: Normal Static Standing: Fair Dynamic Standing: Fair ASSESSMENT:?? Demonstrated improved functional performance, increased distance coverage, and better posture using bariatric FWW. Has strong reservatins about trying out the stairs despite safe technique and persuasion of PT. Pain level on the high side despite intake of pain medications earlier in the morning. Patient recently discharged from SNF where she stayed for a month of rehabilitation. Fell 2 days after she went home and sustained a lateral malleolus, tibial metaphysis, and posterior talus as read in CT scan on 06/21/2024. Per Dr. Jones, patient is to do protected weight bearing on the R LE with fracture boot. PT put in a post op shoe on the L side to equalize leg length as the fracture boot added at least 2 inches to the R leg length an dpatient does not have shoes that she brought with her here. Patient required assist of 1 for short distance ambulation using FWW with cueing provided for appropriate weight distribution through extremities. Plan of Care/Treatment Plan: 1-2x/day, 7 days/week x 1 week. Continue with HH PT to ensure safety training with all mobility performance at home in compliance with WB precaution by orthopedic surgeon using needed devices for walking. Patient provided with bariatric FWW to ensure independence and reduce fall risk at home. DISCHARGE RECOMMENDATIONS: [] Home with no services [] [] Home with services [specify] [] Home with outpatient PT [] [] SNF for continued rehabilitation once cleared medically [] [facility] [] [] SNF versus LTC based on ability to participate and progress [] [X] HH PT vs short-term rehab based on progress towards goals TREATMENT CODE/TIME: 91413 x 20 minutes for 1 unit (9:51-10:11).
[2024-06-24 10:50] VITALS: BP 112/57; PULSE 102; RESP 16; TEMP 37.9; O2SAT 89
[2024-06-24 10:50] LABS: Abs Immature Grans 0.02 10^3/uL (0.0-0.06); Absolute Basophil Count 0.04 10^3/uL (0.0-0.2); Absolute Eosinophil Count 0.11 10^3/uL (0.0-0.7); Absolute Lymphocyte Count 0.38 10^3/uL (1.2-3.4); Absolute Monocyte Count 0.25 10^3/uL (0.1-0.8); Absolute Neutrophil Count 5.62 10^3/uL (1.2-6.7); Basophils % 0.6 %; Eosinophils % 1.7 %; HCT 38.6 % (36.0-46.0); HGB 11.8 g/dL (11.2-15.7); Immature Grans % 0.3 %; Lymphocytes % 5.9 %; MCH 26.1 pg (27.0-33.0); MCHC 30.6 % (32.0-36.0); MCV 85 fL (80-95); MPV 9.1 fL (8.0-11.0); Monocytes % 3.9 %; Neutrophils % 87.6 %; Platelet Count 318 10^3/uL (130-400); RBC 4.52 10^6/uL (3.93-5.22); RDW 13.4 % (11.7-14.6); RDW-SD 42.2 fL; WBC 6.42 10^3/uL (4.4-10.8)
[2024-06-24 11:00] LABS: Anion Gap 6.9 mmol/L (3-11); BUN 13 mg/dL (7-18); CO2 30.1 mmol/L (21.0-32.0); CREATININE 0.6 mg/dL (0.55-1.02); Calcium 9.8 mg/dL (8.5-10.1); Chloride 99 mmol/L (98-107); Estimated GFR 102.06 (mL/min/1.73m2); Glucose 114 mg/dL (74-106); Magnesium 1.8 mg/dL (1.8-2.4); Potassium 4.1 mmol/L (3.5-5.1); Sodium 136 mmol/L (136-145)
[2024-06-24 11:34] VITALS: O2SAT 94
[2024-06-24 11:58] LABS: Bilirubin Negative (Negative); Blood Trace-intact (Negative); Clarity Clear (Clear); Glucose Negative (Negative); Ketones Negative (Negative); Leukocyte Esterase Small (Negative); Nitrite Positive (Negative); Specific Gravity <= 1.005 (1.005-1.025); Urobilinogen 0.2 mg/dL (Up to 0.2); pH 5.5 (5-8)
[2024-06-24 12:12] LABS: COVID-19 PCR Negative (Negative); Influenza A PCR Negative (Negative); Influenza B PCR Negative (Negative); RSV PCR Negative (Negative)
[2024-06-24 12:21] LABS: Source Nasopharynx
[2024-06-24 12:29] LABS: Epithelial Cells Few HPF (Negative); WBC 20-50 HPF (0-5)
[2024-06-24 12:30] LABS: Bacteria Many HPF (Negative); C & S Indicated? Yes; Crystals Negative HPF (Negative); Mucus Negative (Negative); Other Cells Few Renal (Negative)
[2024-06-24] MEDS: MacroBID 100 MG CAP PO (13:10)
--- NOTE | 2024-06-24 13:44 | CMDISCH_ITS ---
Date of service: 06/24/24 Time of Service: 13:45 LACE Index Scoring Tool Questions: Length of Stay (in days): 3 Was the patient admitted via the E.D.?: Yes Comorbidities: Chronic Pulmonary Disease E.D. Visits: 4 Answers: Total Score: 12 Risk of Readmission: High Risk Care Management Discharge Plan Reason for Hospitalization: right ankle fracture Discharge Plan: Maryjane was discharged home earlier today with new orders for oral antibiotics, for UTI, and continued HH PT and [employer]. She transported home with her Mom in a private vehicle. She will continue f/u with her PCP on 06/[address] Jones on 07/27, and continue per the plan of care. Patient/Family Education Needs: Review of discharge instructions, activity, limitations and discuss ask me 3. Services Needed at Discharge: Home Health Care Services (resumption of HH PT and new [employer]) [facility] Health Related Social Needs: No Data to Display
--- NOTE | 2024-07-15 15:10 | NUR.NOTE ---
Accessed patient chart to print provider note to be faxed to [facility] for billing purposes. Nursing Note:
== END 2024-06-24 13:31 | disposition home health service (06) ==
LOC: ER 06-21 12:07 → MS 06-21 12:27
PROVIDERS: Nurse Practitioner Family; Admitting Provider Family Medicine; Emergency Provider Student in an Organized Health Care Education/Training Program; PCP Family Medicine; Visit Provider Family Medicine
DX: S82.391A Other fracture of lower end of right tibia, initial encounter for closed fracture (principal); M80.871A Other osteoporosis with current pathological fracture, right ankle and foot, initial encounter for fracture; S92.101A Unspecified fracture of right talus, initial encounter for closed fracture; R50.9 Fever, unspecified; R29.6 Repeated falls; E11.9 Type 2 diabetes mellitus without complications; I10 Essential (primary) hypertension; Z79.899 Other long term (current) drug therapy; J44.9 Chronic obstructive pulmonary disease, unspecified; K21.9 Gastro-esophageal reflux disease without esophagitis; F32.A Depression, unspecified; W19.XXXA Unspecified fall, initial encounter; R60.0 Localized edema; I87.2 Venous insufficiency (chronic) (peripheral); D50.9 Iron deficiency anemia, unspecified; M48.061 Spinal stenosis, lumbar region without neurogenic claudication; M54.32 Sciatica, left side; E66.01 Morbid (severe) obesity due to excess calories; F17.210 Nicotine dependence, cigarettes, uncomplicated; Z96.651 Presence of right artificial knee joint
CPT/HCPCS: 00123; 27750; 36410; 51702; 80048; 87040; 87077; 87637; 96365; 96372; 97162; 97530; 99222; 99231; 99285; J1650; 73610; 73700; 81003; 81015; 83735; 85025; 87086; 87186; 99239; G0378; J3489

== ENCOUNTER 2024-07-03 13:07 | Observation (INO) | payer MEDICARE, MEDICAID, SELFPAY ==
[2024-07-03] VITALS (61 sets, daily range): BP systolic 121–188; BP diastolic 63–101; PULSE 100–135; RESP 11–25; TEMP 36.6–37.3; O2SAT 93–100
--- NOTE | 2024-07-03 13:15 | DI.RAD_ITS ---
Exam(s) XR ANKLE RT COMPLETE EXAM: XR ANKLE RT COMPLETE CLINICAL HISTORY: Eval Fracture. TECHNIQUE: 2D digital imaging was performed. Three views. COMPARISON: CR,XR XR ANKLE RT COMPLETE from 06/20/[address] LOWER EXTREMITY RT WO from 06/20/2024 CR,XR XR ANKLE RT COMPLETE from 06/22/2024 FINDINGS: BONES: Transverse fracture now seen through the lateral malleolus with mild medial displacement. Fra cture of the medial malleolus which is now significantly displaced. No bony destructive lesion is se en. Eight increased displacement of posterior malleolar fracture. The fractures noted on CT throug h the talus is not visible on the current exam. JOINTS: medial displacement of the talus with respect to the distal tibia. SOFT TISSUE: Extensive swelling IMPRESSION: Displaced trimalleolar fracture with significant worsening from prior exam. DATA REPOSITORY: RADIATION DOSE DELIVERED:
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
--- NOTE | 2024-07-03 14:09 | DI.RAD_ITS ---
Exam(s) XR TIB/FIB RT EXAM: XR TIB/FIB RT CLINICAL HISTORY: Fracture. TECHNIQUE: 2D digital imaging was performed. Two views. COMPARISON: No exams were available for comparison FINDINGS: BONES: Old distal tibial shaft fracture. Acute fractures again noted of the malleoli. Please see pr evious ankle films. No fractures are seen more superiorly in the tibia or fibula. There is a knee p rosthesis which is unremarkable. No bony destructive lesion is seen. Visualized portion of knee and ankle joints are unremarkable. SOFT TISSUE: Normal. IMPRESSION: Fractures of the distal tibia and fibula. No additional fractures are noted more superiorly. DATA REPOSITORY: RADIATION DOSE DELIVERED:
[2024-07-03] MEDS: oxyCODONE 5 MG TAB PO ×2 (14:17→19:37)
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
[2024-07-03 14:47] LABS: Abs Immature Grans 0.03 10^3/uL (0.0-0.06); Absolute Basophil Count 0.02 10^3/uL (0.0-0.2); Absolute Eosinophil Count 0.19 10^3/uL (0.0-0.7); Absolute Lymphocyte Count 1.11 10^3/uL (1.2-3.4); Absolute Monocyte Count 0.36 10^3/uL (0.1-0.8); Absolute Neutrophil Count 4.44 10^3/uL (1.2-6.7); Basophils % 0.3 %; Eosinophils % 3.1 %; HCT 38.4 % (36.0-46.0); HGB 11.4 g/dL (11.2-15.7); Immature Grans % 0.5 %; MCH 25.5 pg (27.0-33.0); MCHC 29.7 % (32.0-36.0); MCV 86 fL (80-95); MPV 8.4 fL (8.0-11.0); Monocytes % 5.9 %; Neutrophils % 72.2 %; Platelet Count 390 10^3/uL (130-400); RBC 4.47 10^6/uL (3.93-5.22); RDW 13.6 % (11.7-14.6); RDW-SD 42.8 fL; WBC 6.15 10^3/uL (4.4-10.8)
[2024-07-03 15:06] LABS: ALT 14 U/L (14-59); AST 6 U/L (15-37); Albumin 3.4 g/dL (3.4-5.0); Alkaline Phosphatase 145 U/L (46-116); BUN 11 mg/dL (7-18); Bilirubin, Total 0.28 mg/dL (0.2-1.0); CREATININE 0.5 mg/dL (0.55-1.02); Calcium 9.4 mg/dL (8.5-10.1); Chloride 105 mmol/L (98-107); Estimated GFR 106.64 (mL/min/1.73m2); Glucose 104 mg/dL (74-106); Potassium 4.2 mmol/L (3.5-5.1); Sodium 142 mmol/L (136-145); Total Protein 7.3 g/dL (6.4-8.2)
--- NOTE | 2024-07-03 15:15 | DI.RAD_ITS ---
Exam(s) XR ANKLE RT COMPLETE EXAM: XR ANKLE RT COMPLETE CLINICAL HISTORY: Post-reduction. TECHNIQUE: 2D digital imaging was performed of the right ankle. Three images were obtained. AP, la teral and oblique views were obtained. COMPARISON: CR XR ANKLE RT COMPLETE from 07/03/2024 FINDINGS: There is again seen a trimalleolar fracture of the right ankle. There has been improved alignment of the ankle, particularly improvement of the displaced medial and lateral malleolar fractures. The ti bial talar joint has been reduced. The patient's ankle is in a cast. There is diffuse soft tissue s welling of the ankle. IMPRESSION: Trimalleolar fracture of the right ankle. There has been improved alignment of the ankle joint since the prior examination. DATA REPOSITORY: RADIATION DOSE DELIVERED:
[2024-07-03] MEDS: Propofol 200 MG/20 ML VIAL IVP (15:33)
--- NOTE | 2024-07-03 15:37 | RESPIRATORY ---
Paged at 1505 to assist with conscious sedation. Patient placed on NC with EtCO2 monitoring with oral airway, ambu bag and suction at bedside. Pt required 4L O2 during procedure which was titrated to RA immediately after procedure complete. HR 122, RR 18, SpO2 96% and EtCO2 27.Patient awake, alert and stable post procedure.
[2024-07-03] MEDS: HYDROmorphone 2 MG/ML SYR 0.5 MG IVP (15:39)
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
--- NOTE | 2024-07-03 16:06 | W.EDPROG ---
Date of service: 07/03/24 Time of Service: 16:06 Medical Decision Making This dictation utilizes [id number] dictation software and may contain unedited grammatical errors. Patient seen in signout from Brandi Tay NP, please see her complete note. Essentially this 63-year-old female who is seen 1104 with a posterior and medial tibia fracture at the ankle. She is now having an unstable trimalleolar fracture that was reduced with closed reduction and conscious sedation, Ortho recommends that she follow-up with [facility] for surgery, she had been walking on the injury and has significant weight issues. At time of signout we are awaiting postreduction x-ray as well as physical therapy evaluation, the patient has awake from conscious sedation with disposition pending. Patients' medical history: T2DM hypertension, COPD, gastroparesis, gastric ulcer, history of spinal epidural abscess operated on at [facility]. Family and social history: Patient does have home opiate and fentanyl use by prescription, denies other illicit substance use, lives with her elderly mother who has dementia. Pertinent exam findings / vital signs include [ ]. Differential / pathologies of concern include [ ]. Diagnostic studies of: -Reviewed initial imaging today and basic labs, awaiting postreduction x-ray. -Postreduction x-ray shows [ ] Interventions of: -Reviewed prior interventions, patient received 5 mg oxycodone, total of 1 mg IV Dilaudid, constant sedation by propofol, see Dr. Duoglass's note. -PT recommends against safety for discharge. -[facility] Ortho Dr. Fitzgerald at 1808 states that they could do surgery on this patient, but not this weekend as it is non-emergent, non-urgent. -Spoke to Hospitalist Dr. Carrillo @ 1844, accepts patient for admit- OBS status, surgery consulting. Patient may need SNF/rehab placement, as [facility] refuses to accept patient, and on-call ortho does not perform this type of surgery and refuses to have it scheduled for early in the week. -Given 10mg oxycodone PO after shift-change -Given another dose 5mg @ 1930 Disposition of Displaced trimalleolar fracture of right ankle, fracture of right tibia. Patient verbalized understanding of the plan and return to ED criteria and engaged in shared decision making. Medical Records Medical records reviewed: Yes I reviewed the patient's medical records. Imaging Data Radiologic Study: Attestation: I personally reviewed and interpreted this imaging study as follows: Imaging: X-Ray Radiologist's impression: EXAM: XR ANKLE RT COMPLETE CLINICAL HISTORY: Eval Fracture. TECHNIQUE: 2D digital imaging was performed. Three views. COMPARISON: CR,XR XR ANKLE RT COMPLETE from 06/20/[address] LOWER EXTREMITY RT WO from 06/20/2024 CR,XR XR ANKLE RT COMPLETE from 06/22/2024 FINDINGS: BONES: Transverse fracture now seen through the lateral malleolus with mild medial displacement. Fracture of the medial malleolus which is now significantly displaced. No bony destructive lesion is seen. Eight increased displacement of posterior malleolar fracture. The fractures noted on CT through the talus is not visible on the current exam. JOINTS: medial displacement of the talus with respect to the distal tibia. SOFT TISSUE: Extensive swelling IMPRESSION: Displaced trimalleolar fracture with significant worsening from prior exam. Radiologic Study #2: Attestation: I personally reviewed and interpreted this imaging study as follows: Imaging: X-Ray Radiologist's impression: EXAM: XR TIB/FIB RT CLINICAL HISTORY: Fracture. TECHNIQUE: 2D digital imaging was performed. Two views. COMPARISON: No exams were available for comparison FINDINGS: BONES: Old distal tibial shaft fracture. Acute fractures again noted of the malleoli. Please see previous ankle films. No fractures are seen more superiorly in the tibia or fibula. There is a knee prosthesis which is unremarkable. No bony destructive lesion is seen. Visualized portion of knee and ankle joints are unremarkable. SOFT TISSUE: Normal. IMPRESSION: Fractures of the distal tibia and fibula. No additional fractures are noted more superiorly. Radiologic Study #3: Attestation: I personally reviewed and interpreted this imaging study as follows: Imaging: X-Ray Radiologist's impression: EXAM: XR ANKLE RT COMPLETE CLINICAL HISTORY: Post-reduction. TECHNIQUE: 2D digital imaging was performed of the right ankle. Three images were obtained. AP, lateral and oblique views were obtained. COMPARISON: CR XR ANKLE RT COMPLETE from 07/03/2024 FINDINGS: There is again seen a trimalleolar fracture of the right ankle. There has been improved alignment of the ankle, particularly improvement of the displaced medial and lateral malleolar fractures. The tibial talar joint has been reduced. The patient's ankle is in a cast. There is diffuse soft tissue swelling of the ankle. IMPRESSION: Trimalleolar fracture of the right ankle. There has been improved alignment of the ankle joint since the prior examination. Lab Data Lab results reviewed: Yes I reviewed the patient's lab results. Labs: Laboratory Tests Range/Units 07/03/24 14:40 WBC (4.4-10.8) 10^3/uL 6.15 RBC (3.93-5.22) 10^6/uL 4.47 Hgb (11.2-15.7) g/dL 11.4 Hct (36.0-46.0) % 38.4 MCV (80-95) fL 86 MCH (27.0-33.0) pg 25.5 L MCHC (32.0-36.0) % 29.7 L RDW (11.7-14.6) % 13.6 Plt Count (130-400) 10^3/uL 390 MPV (8.0-11.0) fL 8.4 Immature Gran % % 0.5 Neutrophils % % 72.2 Lymphocytes % % 18.0 Monocytes % % 5.9 Eosinophils % % 3.1 Basophils % % 0.3 Nucleated RBC % (0.0-0.3) % 0.0 Absolute Neutrophils (1.2-6.7) 10^3/uL 4.44 Absolute Lymphocytes (1.2-3.4) 10^3/uL 1.11 L Absolute Monocytes (0.1-0.8) 10^3/uL 0.36 Absolute Eosinophils (0.0-0.7) 10^3/uL 0.19 Absolute Basophils (0.0-0.2) 10^3/uL 0.02 Sodium (136-145) mmol/L 142 Potassium (3.5-5.1) mmol/L 4.2 Chloride (98-107) mmol/L 105 Carbon Dioxide (21.0-32.0) mmol/L 30.0 Anion Gap (3-11) mmol/L 7.0 BUN (7-18) mg/dL 11 Creatinine (0.55-1.02) mg/dL 0.5 L Est GFR (CKD-EPI 2020) (mL/min/1.73m2) 106.64 Glucose (74-106) mg/dL 104 Calcium (8.5-10.1) mg/dL 9.4 Total Bilirubin (0.2-1.0) mg/dL 0.28 AST (15-37) U/L 6 L ALT (14-59) U/L 14 Alkaline Phosphatase (46-116) U/L 145 H Total Protein (6.4-8.2) g/dL 7.3 Albumin (3.4-5.0) g/dL 3.4 Quality:SDOH Health Related Social Needs: No Data to Display Sign Out Sign Out Data: Sign Out Comment: 63 year old recent Spinal abscess surgery at [facility] in Apr, Here and Dc'd on 06/24/24 for right ankle fracture with failed ambulatory trial. Dc'd to home with home PT, walking boot and walker. Since Wed increased pain. Here with trimalleolar fracture and is post reduction and procedural sedation with Propofol. Awaiting PT eval for DC safety consult. Last updated by Suly Valente NP at 07/03/24 15:51 Discharge Plan Disposition Patient Disposition: Admit to [facility] Condition: Stable Discharge Details Clinical Impression: Displaced trimalleolar fracture of right ankle, Fracture of right tibia Primary Care Provider: Shahzad Olivarez ED Provider: Alonso Palmer Home Meds and New Rx's Prescriptions: No Action fenofibrate 54 mg tablet 54 mg PO DAILY Qty: 90 3RF simvastatin 20 mg tablet 20 mg PO DAILY Qty: 90 3RF Trelegy Ellipta 100-62.5-25 mcg blister with device 1 inh inhalation DAILY Qty: 28 11RF cholecalciferol (vitamin D3) 1,250 mcg (50,000 unit) capsule 1,250 mcg PO QWEEK Qty: 12 2RF lisinopril-hydrochlorothiazide 10-12.5 mg tablet 0.5 tab PO DAILY Qty: 45 3RF doxepin 100 mg capsule 200 mg PO QHS Qty: 180 3RF aripiprazole [Abilify] 20 mg tablet 40 mg PO DAILY Qty: 180 4RF furosemide 20 mg tablet 20 mg PO DAILY PRN (Reason: swelling) Qty: 30 3RF diclofenac sodium 75 mg tablet,delayed release (DR/EC) 75 mg PO BID PRN (Reason: back pain) Qty: 180 3RF fentanyl 100 mcg/hr patch 72 hour 1 patch transdermal Q48H MDD 1 patch Qty: 10 0RF fentanyl 12 mcg/hr patch 72 hour 1 patch transdermal Q48H MDD 1 patch Qty: 10 0RF gabapentin 600 mg tablet 900 mg PO TID Qty: 135 1RF Rx Instructions: dose increase 12/28/23 Lactobacillus acidoph-L.bulgar [Floranex] 1 million cell tablet 2 tab PO BID methocarbamol 500 mg tablet 500 mg PO QID gabapentin 300 mg capsule 300 mg PO TID tamsulosin 0.4 mg capsule 0.4 mg PO QHS loperamide [Anti-Diarrheal (loperamide)] 2 mg capsule 2 mg PO Q2H PRN Rx Instructions: administer after each loose stool until symptoms controlled; do not exceed 8 mg per 24 hrs oxycodone 10 mg tablet 10 mg PO TID MDD 3 tabs PRN (Reason: pain) Qty: 30 0RF nitrofurantoin macrocrystal 100 mg capsule 100 mg PO BID Qty: 9 0RF Rx Instructions: must administer with a meal/food acetaminophen 325 mg Tablet 650 mg PO Q4H PRN PRNQty: 90 0RF
[2024-07-03] MEDS: hydroCHLOROthiazide 12.5 MG TAB 6.25 MG PO (17:11)
[2024-07-03] MEDS: oxyCODONE 10 MG TAB PO (17:12)
[2024-07-03] MEDS: Lisinopril 5 MG TAB PO (17:12)
[2024-07-03 18:30] LABS: Bilirubin Negative (Negative); Blood Negative (Negative); Clarity Clear (Clear); Glucose Negative (Negative); Ketones Negative (Negative); Leukocyte Esterase Trace (Negative); Nitrite Positive (Negative); Urobilinogen 0.2 mg/dL (Up to 0.2)
[2024-07-03 18:36] LABS: Bacteria Moderate HPF (Negative); C & S Indicated? No; Casts Negative LPF (Negative); Crystals Negative HPF (Negative); Epithelial Cells Rare HPF (Negative); Mucus Negative (Negative); RBC Negative HPF (0-2)
[2024-07-03] MEDS: Acetaminophen 325 MG TAB 650 MG PO (19:37)
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
[2024-07-03] MEDS: Cefpodoxime 200 MG TAB PO (20:21)
[2024-07-03 20:24] LABS: Source Nasal/Nares
[2024-07-03 20:58] LABS: COVID-19 PCR Negative (Negative)
[2024-07-03] MEDS: Ketorolac 30 MG/ML VIAL IVP (22:55)
[2024-07-04] MEDS: Tamsulosin 0.4 MG CAPCR PO ×2 (00:04→20:44)
[2024-07-04] MEDS: Gabapentin 300 MG CAP PO (00:04)
[2024-07-04] MEDS: Methocarbamol 500 MG TAB PO ×5 (00:04→20:44)
[2024-07-04] MEDS: Doxepin 50 MG CAP 200 MG PO ×2 (00:05→20:42)
[2024-07-04] MEDS: oxyCODONE 10 MG TAB PO ×5 (01:29→21:39)
[2024-07-04 02:10] VITALS: BP 120/73; PULSE 102; RESP 16; TEMP 36.9; O2SAT 95
--- NOTE | 2024-07-04 05:29 | W.PC.ACHO ---
Registration Status: Primary Language: Preferred Language: ED Information & Data Chief Complaint Orthopedic 07/03/24 13:21 Triage Note Pt arrives via EMS for known 07/03/24 13:08 right distal tibia fracture that occurred 8 days ago , was wearing boot, doing pt at home on saturday and pain has been worse since. Thinks she walked too much. Pain only when ambulating. Leg appears red around ankle which pt states is baseline . No fall. Medical / Surgical History (Last Reviewed 07/03/24 @ 20:04 by Rom Carrillo) Type 2 diabetes mellitus Essential hypertension History of fractured rib COPD (chronic obstructive pulmonary disease) (Last Reviewed 07/03/24 @ 20:04 by Rom Carrillo) ULCER/STOMACH SURGERY Replacement of total knee joint (04/17/17) Total replacement of hip KNEE SURGERY EGD - MAC Cholecystectomy (~06/2013) Most Recent Vital Signs Temperature 36.9 C 07/04/24 02:10 Temperature Source Tympanic 07/04/24 02:10 Pulse 102 H 07/04/24 02:10 Pulse Rhythm Regular 07/03/24 21:30 Pulse 111 H 07/03/24 20:30 Respiratory Rate 16 07/04/24 02:10 Respiratory Effort Normal, Non-Labored 07/03/24 21:30 Respiratory Depth Normal 07/03/24 21:30 Respiratory Pattern Normal 07/03/24 21:30 Blood Pressure 120/73 07/04/24 02:10 Blood Pressure Mean 79 07/03/24 20:16 Blood Pressure Position Supine 07/03/24 13:08 Pulse Oximetry 95 07/04/24 02:10 Respiratory End-tidal CO2 32 07/03/24 15:40 Oxygen Delivery Method Room Air 07/04/24 02:10 Oxygen Flow Rate 0 07/04/24 02:10 Pain Level 7 07/03/24 22:55 Comment ED provider aware of persistent tachycardia 07/03/24 16:25 Allergies No Known Drug Allergies Allergy (Unknown, Verified 07/03/24 13:19) none Active Medications Generic Name Dose Route Start Last Admin Trade Name Freq PRN Reason Stop Dose Admin Cefpodoxime Proxetil 200 mg 07/03/24 20:00 07/03/24 20:21 Cefpodoxime 200 Mg Tab PO 07/13/24 19:59 200 mg Q12H TAINA Administration Doxepin HCl 200 mg 07/03/24 23:25 07/04/24 00:05 Doxepin 50 Mg Cap PO 200 mg HS TAINA Administration Gabapentin 300 mg 07/03/24 23:07 07/04/24 00:04 Gabapentin 300 Mg Cap PO 300 mg TID TAINA Administration Ketorolac Tromethamine 30 mg 07/03/24 22:39 07/03/24 22:55 Ketorolac 30 Mg/Ml Vial IVP 07/08/24 22:38 30 mg Q6H PRN PRN Administration Methocarbamol 500 mg 07/03/24 23:07 07/04/24 00:04 Methocarbamol 500 Mg Tab PO 500 mg QID TAINA Administration Oxycodone HCl 10 mg 07/03/24 19:57 07/04/24 01:29 Oxycodone 10 Mg Tab PO 10 mg Q4H PRN Administration Sodium Chloride 0 ml 07/03/24 20:00 07/03/24 20:16 Normal Saline Flush 10 Ml Syr IVP Not Given BID TAINA Tamsulosin HCl 0.4 mg 07/03/24 23:07 07/04/24 00:04 Tamsulosin 0.4 Mg Capcr PO 0.4 mg HS TAINA Administration IV IV Catheter Type [Left Upper Saline Lock arm] IV Catheter Gauge [Left Upper 18 arm] Diet Orders Category Date Time Status Heart Healthy Eating [DIET] Nutrition 07/04/24 Breakfast Active Diagnostics 07/04/24 07/03/24 07/03/24 Range/Units 05:35 20:20 18:22 WBC Pending (4.4-10.8) 10^3/uL RBC Pending (3.93-5.22) 10^6/uL Hgb Pending (11.2-15.7) g/dL Hct Pending (36.0-46.0) % MCV Pending (80-95) fL MCH Pending (27.0-33.0) pg MCHC Pending (32.0-36.0) % RDW Pending (11.7-14.6) % Plt Count Pending (130-400) 10^3/uL MPV Pending (8.0-11.0) fL Immature Gran % % Neutrophils % % Lymphocytes % % Monocytes % % Eosinophils % % Basophils % % Nucleated RBC % (0.0-0.3) % Absolute Neutrophils (1.2-6.7) 10^3/uL Absolute Lymphocytes (1.2-3.4) 10^3/uL Absolute Monocytes (0.1-0.8) 10^3/uL Absolute Eosinophils (0.0-0.7) 10^3/uL Absolute Basophils (0.0-0.2) 10^3/uL Sodium Pending (136-145) mmol/L Potassium Pending (3.5-5.1) mmol/L Chloride Pending (98-107) mmol/L Carbon Dioxide Pending (21.0-32.0) mmol/L Anion Gap Pending (3-11) mmol/L BUN Pending (7-18) mg/dL Creatinine Pending (0.55-1.02) mg/dL Est GFR (CKD-EPI 2020) Pending (mL/min/1.73m2) Glucose Pending (74-106) mg/dL Calcium Pending (8.5-10.1) mg/dL Magnesium Pending Total Bilirubin Pending (0.2-1.0) mg/dL AST Pending (15-37) U/L ALT Pending (14-59) U/L Alkaline Phosphatase Pending (46-116) U/L Total Protein Pending (6.4-8.2) g/dL Albumin Pending (3.4-5.0) g/dL Urine Color Yellow (Yellow) Urine Clarity Clear (Clear) Urine pH 7.0 (5-8) Ur Specific Mitchell 1.020 (1.005-1.025) Urine Protein Negative (Neg-Trace) mg/dL Urine Ketones Negative (Negative) mg/dL Urine Blood Negative (Negative) Urine Nitrite Positive H (Negative) Urine Bilirubin Negative (Negative) Urine Urobilinogen 0.2 (Up to 0.2) mg/dL Ur Leukocyte Esterase Trace H (Negative) Urine RBC Negative (0-2) HPF Urine WBC 3-5 (0-5) HPF Ur Epithelial Cells Rare (Negative) HPF Urine Crystals Negative (Negative) HPF Urine Bacteria Moderate (Negative) HPF Urine Casts Negative (Negative) LPF Urine Mucus Negative (Negative) Ur Culture Indicated? No Urine Glucose Negative (Negative) mg/dL COVID-19 Source Nasal/Nares SARS-CoV-2 (PCR) Negative (Negative) 07/03/24 Range/Units 14:40 WBC 6.15 (4.4-10.8) 10^3/uL RBC 4.47 (3.93-5.22) 10^6/uL Hgb 11.4 (11.2-15.7) g/dL Hct 38.4 (36.0-46.0) % MCV 86 (80-95) fL MCH 25.5 L (27.0-33.0) pg MCHC 29.7 L (32.0-36.0) % RDW 13.6 (11.7-14.6) % Plt Count 390 (130-400) 10^3/uL MPV 8.4 (8.0-11.0) fL Immature Gran % 0.5 % Neutrophils % 72.2 % Lymphocytes % 18.0 % Monocytes % 5.9 % Eosinophils % 3.1 % Basophils % 0.3 % Nucleated RBC % 0.0 (0.0-0.3) % Absolute Neutrophils 4.44 (1.2-6.7) 10^3/uL Absolute Lymphocytes 1.11 L (1.2-3.4) 10^3/uL Absolute Monocytes 0.36 (0.1-0.8) 10^3/uL Absolute Eosinophils 0.19 (0.0-0.7) 10^3/uL Absolute Basophils 0.02 (0.0-0.2) 10^3/uL Sodium 142 (136-145) mmol/L Potassium 4.2 (3.5-5.1) mmol/L Chloride 105 (98-107) mmol/L Carbon Dioxide 30.0 (21.0-32.0) mmol/L Anion Gap 7.0 (3-11) mmol/L BUN 11 (7-18) mg/dL Creatinine 0.5 L (0.55-1.02) mg/dL Est GFR (CKD-EPI 2020) 106.64 (mL/min/1.73m2) Glucose 104 (74-106) mg/dL Calcium 9.4 (8.5-10.1) mg/dL Magnesium Total Bilirubin 0.28 (0.2-1.0) mg/dL AST 6 L (15-37) U/L ALT 14 (14-59) U/L Alkaline Phosphatase 145 H (46-116) U/L Total Protein 7.3 (6.4-8.2) g/dL Albumin 3.4 (3.4-5.0) g/dL Urine Color (Yellow) Urine Clarity (Clear) Urine pH (5-8) Ur Specific Mitchell (1.005-1.025) Urine Protein (Neg-Trace) mg/dL Urine Ketones (Negative) mg/dL Urine Blood (Negative) Urine Nitrite (Negative) Urine Bilirubin (Negative) Urine Urobilinogen (Up to 0.2) mg/dL Ur Leukocyte Esterase (Negative) Urine RBC (0-2) HPF Urine WBC (0-5) HPF Ur Epithelial Cells (Negative) HPF Urine Crystals (Negative) HPF Urine Bacteria (Negative) HPF Urine Casts (Negative) LPF Urine Mucus (Negative) Ur Culture Indicated? Urine Glucose (Negative) mg/dL COVID-19 Source SARS-CoV-2 (PCR) (Negative) 07/03/24 18:22 Urine Culture - Pending Urine - Cath Paige Indwelling Intake and Output - 24 Hour Total 07/03/24 12:58 thru 07/04/24 00:10 Intake Total 20 Output Total 950 Balance -930 Weight 97.522 kg Intake: IV 20 Output: Urine 950 Other: Urine Color Pale Yellow Urine Appearance Clear Stool Size Small Stool Characteristics Soft Formed Brown Urinary Catheter Urinary Catheter Date of 07/03/24 Insertion [Urethral (Paige)] Time of insertion [Urethral ( 18:00 Paige)] Falls Risk Assessment History of Falls Previous History 07/03/24 21:30 Contributing Factors No Factors 07/03/24 21:30 Ambulatory Aids Uses ambulatory device + 07/03/24 21:30 Tubes/Lines With any additional score 07/03/24 21:30 Gait Evaluation W/any additional score 07/03/24 21:30 Cognition No cognitive impairment 07/03/24 21:30 Fall Total Score 85 07/03/24 21:30 Level of Risk Maximum Risk 07/03/24 21:30 Problems (Last Reviewed 07/03/24 @ 20:04 by Rom Carrillo) UTI (urinary tract infection) (Acute) Displaced trimalleolar fracture of right ankle (Acute) Chronic right-sided lumbar radiculopathy (Chronic) Morbid obesity (Acute) COPD (chronic obstructive pulmonary disease) (Chronic) Tobacco use disorder (Chronic) Depression (Chronic 07/18/05) Notes 07/03/24 15:37 Respiratory by Odessa Kilgore Paged at 1505 to assist with conscious sedation. Patient placed on NC with EtCO2 monitoring with oral airway, ambu bag and suction at bedside. Pt required 4L O2 during procedure which was titrated to RA immediately after procedure complete. HR 122, RR 18, SpO2 96% and EtCO2 27.Patient awake, alert and stable post procedure. Initialized on 07/03/24 15:37 - END OF NOTE v v v v v v v v v Sending and/or Receiving Nurses: Please use comment section below to note any information pertinent to the patient hand-off not included above. Information / Comments: Pt had PT last saturday, since then has felt worse, feels like ankle looks more deformed. found to have trimalleolar fracture - reduced by MD Tonya. splinted chronic pain, chronic pain med use. Pt broke back in Apr., had an abcess. A&O, occasionally make unrelated/impulsive remarks HR tachy, pvcs present, on tele BP has improved R calf larger than L calf Last visit did not have DVT profylaxis, aware of Cardiac status and swelling has paige- 800 output immediately- educated on infection risk of paige stood 1x with PT, appears to be putting too much weight on foot even with instruction to be non-weight bearing Urine was sent to lab, maybe has a bit of uti left over has gotten: 1g APAP 10mg oxy lisinopril hydrochlorothiazide cefpedoxime 2120 pt will not take ibuprofen or anything similar IV 18g MAE HR 115 RR 19 O2 93 ra T 36.6 Report received from: DEBRA Fernando @ [id number]
[2024-07-04] MEDS: Heparin 5,000 UNITS/ML VIAL 5000 UNITS SC ×3 (06:22→22:43)
[2024-07-04 07:09] LABS: HCT 36.3 % (36.0-46.0); HGB 10.8 g/dL (11.2-15.7); MCH 25.7 pg (27.0-33.0); MCHC 29.8 % (32.0-36.0); MCV 86 fL (80-95); MPV 8.5 fL (8.0-11.0); Platelet Count 368 10^3/uL (130-400); RBC 4.21 10^6/uL (3.93-5.22); RDW 13.8 % (11.7-14.6); RDW-SD 43.5 fL; WBC 4.89 10^3/uL (4.4-10.8)
[2024-07-04 07:34] LABS: ALT 11 U/L (14-59); AST 9 U/L (15-37); Albumin 2.9 g/dL (3.4-5.0); Alkaline Phosphatase 128 U/L (46-116); Anion Gap 5.9 mmol/L (3-11); BUN 9 mg/dL (7-18); Bilirubin, Total 0.28 mg/dL (0.2-1.0); CO2 29.1 mmol/L (21.0-32.0); CREATININE 0.5 mg/dL (0.55-1.02); Calcium 8.7 mg/dL (8.5-10.1); Chloride 105 mmol/L (98-107); Estimated GFR 106.64 (mL/min/1.73m2); Glucose 89 mg/dL (74-106); Magnesium 1.8 mg/dL (1.8-2.4); Potassium 3.9 mmol/L (3.5-5.1); Sodium 140 mmol/L (136-145); Total Protein 6.4 g/dL (6.4-8.2)
[2024-07-04 07:37] VITALS: BP 138/68; PULSE 89; RESP 17; TEMP 36.7; O2SAT 97
[2024-07-04] MEDS: Cefpodoxime 200 MG TAB PO ×2 (08:35→20:42)
[2024-07-04] MEDS: Gabapentin 300 MG CAP 900 MG PO ×3 (08:35→20:42)
[2024-07-04] MEDS: Normal Saline Flush 10 ML SYR IVP ×2 (08:36→20:40)
[2024-07-04] MEDS: Lactobacillus Acidophilus CAP 2 CAP PO ×2 (08:36→20:43)
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
--- NOTE | 2024-07-04 09:40 | PTTR_ITS ---
PT Notes Visit Reasons: trimalleolar fracture right ankle, UTI, Morbid Obe Date: 07/04/2024 PRECAUTIONS: Fall risk. Standard precautions. Per Dr. Castaneda as of 07/03/2024, protected weight bearing on the R LE with posterior leg splint on the R and post-op shoe on the L (to balance leg length), use FWW. SUBJECTIVE: Pt in bed when approached for therapy this morning. agreed to participating with therapy session. OBJECTIVE: Villatoro catheter, RLE posterior leg splint? PAIN: 12/26 ankle VITALS: Closely monitored by nursing Therapeutic Activities 81175: Direct one-on-one instruction in dynamic activ ities to improve functional performance. ?? BED MOBILITY/TRANSFERS? Rolling L/R: supervision Supine-sit: ?supervision? Sit-supine: ? supervision? Sit-stand: ? SBA ? Stand-sit: ??SBA ? Bed-Commode:? ?SBA ? Commode-bed: SBA Provided skilled cues and instruction on performance and technique throughout. Gait Training 48871: Direct one-on-one instruction and skilled instruction in: Employing an assistive device Modified weight-bearing status Movement sequencing Turning and movement with proper form Provided verbal cues for equipment management and technique Provided instruction in gait pattern Patient education regarding pacing and breathing techniques to maximize activity tolerance? GAIT? Assistive Device: ??FWW ? Weight bearing: Protected weight bearing Assist: ?SBA ? Distance:??Stand pivot transfer ? Deviation: ? antalgic? ASSESSMENT:?Pt cue for making sure edge of commode is touching the back of her knees to ensure safety, education on how to perform transfers with in protected weight bearing status, able to execute transfer safely and with improved confidence with activity. pt refused gait training, reports she would like to try tomorrow. PLAN: Continue with balance training, global strengthening and general conditioning for improved safety, mobility and activity tolerance until pt is ready for DC. TREATMENT CODE/TIME: [id number] 15mins (9:15-9:30am)
[2024-07-04 11:04] VITALS: BP 143/91; PULSE 101; RESP 20; TEMP 36.8; O2SAT 92
--- NOTE | 2024-07-04 12:01 | RESPIRATORY ---
RT had conversation with pt about home inhaler regimen. Pt used to take Trelegy Ellipta, medication unavailable at this facility, Spiriva and Symbicort orderd in place of this. Pt states that she does not want these inhalers and since she has quit smoking, she has also stopped using her home Trelegy and no longer needs it.
[2024-07-04] MEDS: fentaNYL 12 MCG PATCH TD (12:23)
[2024-07-04] MEDS: fentaNYL 100 MCG PATCH TD (12:23)
--- NOTE | 2024-07-04 13:40 | PGE_ITS ---
Date of Service Date of service: 07/04/24 Time of Service: 13:40 Assessment and Plan Assessment and plan (1) Displaced trimalleolar fracture of right ankle: Start date: 07/03/24 Status: Acute Assessment and plan: This is a 63-year-old lady with fall and fracture of her right ankle 1-1/2 weeks prior to this admission now with trimalleolar fracture and advancing of displacement with fibular fracture while ambulating on her previous fracture. She did have a walking boot previously. She is morbidly obese and male PT evaluation for safe return home tonight. She will be admitted for observation and further physical therapy with patient to walk with bariatric walker she has at home and return home to her elderly mother who could be helpful. Long-term she will need fixation of the right ankle and will be seeing [facility] orthopedics as an outpatient. Pain management while hospitalized which may be complicated by her chronic fentanyl patch use for chronic back pain. DVT prophylaxis per orthopedics. She is a full code. 07/04/2024 Plan of care was reiterated with the patient patient this afternoon. I am going to attempt to transfer the patient again on Saturday at the patient's wishes to either [facility] or [facility]. My guess is that she will have to follow-up in their clinic prior to her surgery. Qualifiers: Encounter type: initial encounter Fracture type: closed Qualified Code(s): S82.851A - Displaced trimalleolar fracture of right lower leg, initial encounter for closed fracture (2) UTI (urinary tract infection): Start date: 07/03/24 Status: Acute Assessment and plan: Patient does have suggestive for UTI with treated with oral antibiotic therapy with urine culture performed. Adjust oral antibiotics according to culture report if positive. If negative, patient could be placed on Macrodantin for prophylaxis which has been done in the recent past. 07/04/2024 Waiting on urine culture results. Patient has a history of UTIs and I will attempt to look at old urine culture results to see if I can determine a pattern. Qualifiers: Urinary tract infection type: acute cystitis Hematuria presence: without hematuria Qualified Code(s): N30.00 - Acute cystitis without hematuria (3) Morbid obesity: Status: Chronic Assessment and plan: This complicates her ability to ambulate and osteoporosis as well as risk for DVT. Weight loss advised the patient losing weight overall. She was prediabetic in the past but not overtly diabetic presently. (4) COPD (chronic obstructive pulmonary disease): Status: Chronic Assessment and plan: Continue outpatient medical therapy with inhalers. This is not exacerbated. Qualifiers: COPD type: chronic bronchitis Chronic bronchitis type: simple Qualified Code(s): J41.0 - Simple chronic bronchitis (5) Chronic right-sided lumbar radiculopathy: Status: Chronic Assessment and plan: Continue fentanyl patches which are changed every 48 hours at 112 mcg/h. (6) Tobacco use disorder: Status: Chronic Assessment and plan: Long-term advised complete cessation. (7) Depression: Status: Chronic Assessment and plan: Continue outpatient medical therapy. Qualifiers: Depression Type: major depressive disorder Major depression recurrence: recurrent Active/Remission status: currently active Major depression episode severity: moderate Qualified Code(s): F33.1 - Major depressive disorder, recurrent, moderate (8) Essential hypertension: Assessment and plan: Continue outpatient medical therapy adjust as needed. Subjective Subjective Interval history since last seen: Patient seen and examined in her room this afternoon. Patient does complain of postprocedure pain in her right ankle. Plan of care discussed with patient as well as at multidisciplinary rounds. Exam Narrative Exam Narrative: Constitutional: Alert and oriented x3. Appears stated age. Normal body habitus. Head: Normocephalic, no trauma. Eyes: Pupils PERRL, Red reflex noted, EOM's intact. Eyelids symmetrical without lesions, discharge, or swelling. Chest: RRR, Normal S1, S2, distal pulses intact. Resp: Lungs clear to auscultation bilaterally, no wheezes, rales, or rhonchi. Abdomen: Soft, non-distended, Normoactive bowel sounds all 4 quads. Musculoskeletal: cast on right leg, cap refill less than 2 seconds. Skin: No suspicious rashes or lesions. Capillary refill less than 2 sec. Neurologic: Cranial nerves II-XII intact. Alert and oriented x 3. Motor: No deficits noted. Sensory: Intact bilaterally all 4 extremities. Hematologic/Lymphatic: No ecchymosis, no lymphadenopathy. Objective Last Vital Signs Temp 36.8 C 07/04/24 11:04 Pulse 101 H 07/04/24 11:04 Resp 20 07/04/24 11:04 BP 143/91 H 07/04/24 11:04 Pulse Ox 92 07/04/24 11:04 Laboratory Results - last 24 hr 07/03/24 07/03/24 07/03/24 14:40 18:22 20:20 WBC 6.15 RBC 4.47 Hgb 11.4 Hct 38.4 MCV 86 MCH 25.5 L MCHC 29.7 L RDW 13.6 Plt Count 390 MPV 8.4 Immature Gran % 0.5 Neutrophils % 72.2 Lymphocytes % 18.0 Monocytes % 5.9 Eosinophils % 3.1 Basophils % 0.3 Nucleated RBC % 0.0 Absolute Neutrophils 4.44 Absolute Lymphocytes 1.11 L Absolute Monocytes 0.36 Absolute Eosinophils 0.19 Absolute Basophils 0.02 Sodium 142 Potassium 4.2 Chloride 105 Carbon Dioxide 30.0 Anion Gap 7.0 BUN 11 Creatinine 0.5 L Est GFR (CKD-EPI 2020) 106.64 Glucose 104 Calcium 9.4 Magnesium Total Bilirubin 0.28 AST 6 L ALT 14 Alkaline Phosphatase 145 H Total Protein 7.3 Albumin 3.4 Urine Color Yellow Urine Clarity Clear Urine pH 7.0 Ur Specific [place] 1.020 Urine Protein Negative Urine Ketones Negative Urine Blood Negative Urine Nitrite Positive H Urine Bilirubin Negative Urine Urobilinogen 0.2 Ur Leukocyte Esterase Trace H Urine RBC Negative Urine WBC 3-5 Ur Epithelial Cells Rare Urine Crystals Negative Urine Bacteria Moderate Urine Casts Negative Urine Mucus Negative Ur Culture Indicated? No Urine Glucose Negative COVID-19 Source Nasal/Nares SARS-CoV-2 (PCR) Negative 07/04/24 06:52 WBC 4.89 RBC 4.21 Hgb 10.8 L Hct 36.3 MCV 86 MCH 25.7 L MCHC 29.8 L RDW 13.8 Plt Count 368 MPV 8.5 Immature Gran % Neutrophils % Lymphocytes % Monocytes % Eosinophils % Basophils % Nucleated RBC % Absolute Neutrophils Absolute Lymphocytes Absolute Monocytes Absolute Eosinophils Absolute Basophils Sodium 140 Potassium 3.9 Chloride 105 Carbon Dioxide 29.1 Anion Gap 5.9 BUN 9 Creatinine 0.5 L Est GFR (CKD-EPI 2020) 106.64 Glucose 89 Calcium 8.7 Magnesium 1.8 Total Bilirubin 0.28 AST 9 L ALT 11 L Alkaline Phosphatase 128 H Total Protein 6.4 Albumin 2.9 L Urine Color Urine Clarity Urine pH Ur Specific [place] Urine Protein Urine Ketones Urine Blood Urine Nitrite Urine Bilirubin Urine Urobilinogen Ur Leukocyte Esterase Urine RBC Urine WBC Ur Epithelial Cells Urine Crystals Urine Bacteria Urine Casts Urine Mucus Ur Culture Indicated? Urine Glucose COVID-19 Source SARS-CoV-2 (PCR) Time Spent with Patient Time Spent with Patient: 35-49 minutes Time was spent: preparing to see the patient(eg.review tests), obtaining and/or reviewing separately otained hiistory, ordering medications,tests, procedures, referring, communicating with other health childcare teacher, indepentently interpreting results, counseling the patient and care coordination
[2024-07-04] MEDS: Acetaminophen 500 MG TAB 1000 MG PO (14:47)
[2024-07-04 15:13] VITALS: BP 153/69; PULSE 100; RESP 18; TEMP 37.3; O2SAT 95
[2024-07-04] MEDS: Budesonide/Formoterol 80/4.5 6.9 GM 60 PUFF INH IH (20:06)
[2024-07-04 20:40] VITALS: BP 146/83; PULSE 88; RESP 16; TEMP 37.4; O2SAT 95
[2024-07-04] MEDS: Simvastatin 20 MG TAB PO (20:43)
[2024-07-04] MEDS: Calcium 600mg/Vit D 200U TAB 1 TAB PO (20:43)
--- NOTE | 2024-07-05 | DI.CT_ITS ---
Exam(s) CT LOWER EXTREMITY RT WO EXAM: CT LOWER EXTREMITY RT WO CLINICAL HISTORY: evaluation of intra-articular involvement. TECHNIQUE: Imaging Protocol: Axial computed tomography images with coronal and sagittal reformatted images were created and reviewed. CONTRAST MATERIAL: Noncontrast COMPARISON: CT CT LOWER EXTREMITY RT WO from 06/20/2024 CR XR ANKLE RT COMPLETE from 07/03/2024 FINDINGS: Exam is somewhat limited by bony demineralization as well as technical artifacts. Bones: The bones are severely demineralized. Impacted fracture at the distal tibia with comminuted f ractures of the medial and posterior malleoli. The medial malleolar fragment is severely displaced m edially. The posterior malleolar fracture is displaced posteriorly. There is significant separation at the articular surface. Distal fibular fracture shows mild displacement and angulation. A nondis placed fractures again noted extending obliquely through the talus. No cellulitic or osteomyelitic changes are identified. Multiple degenerative cysts are noted. Joints: There is no significant joint space narrowing. No significant periarticular spurring. Soft Tissues: Cast material noted. Extensive soft tissue edema. IMPRESSION: Comminuted, impacted intra-articular fracture of the distal tibia with significant displacement. Mil dly angulated distal fibular fracture. Nondisplaced oblique talar fracture. RADIATION DOSE DELIVERED: Total DLP DATA REPOSITORY: All CT scans at this facility are submitted to the National Radiology Data Registry (NRDR) Dose Index Registry (DIR) with the [employer] (A[employer]). RADIATION OPTIMIZATION: All CT scans at this facility use at least one of these dose optimization te chniques: automated exposure control; mA and/or kV adjustment per patient size (includes targeted exa ms where dose is matched to clinical indication); or iterative reconstruction.
[2024-07-05 03:11] VITALS: BP 139/79; PULSE 85; RESP 16; TEMP 36.8; O2SAT 100
[2024-07-05] MEDS: oxyCODONE 10 MG TAB PO ×5 (03:16→18:13)
[2024-07-05] MEDS: Heparin 5,000 UNITS/ML VIAL 5000 UNITS SC ×3 (05:21→22:58)
[2024-07-05 06:58] LABS: HCT 36.2 % (36.0-46.0); HGB 10.7 g/dL (11.2-15.7); MCH 25.4 pg (27.0-33.0); MCHC 29.6 % (32.0-36.0); MCV 86 fL (80-95); MPV 8.6 fL (8.0-11.0); Platelet Count 373 10^3/uL (130-400); RBC 4.22 10^6/uL (3.93-5.22); RDW 13.7 % (11.7-14.6); WBC 5.61 10^3/uL (4.4-10.8)
[2024-07-05] MEDS: Cefpodoxime 200 MG TAB PO ×2 (07:15→20:57)
[2024-07-05] MEDS: Calcium 600mg/Vit D 200U TAB 1 TAB PO ×2 (07:15→20:57)
[2024-07-05 07:16] LABS: ALT 10 U/L (14-59); AST 6 U/L (15-37); Albumin 2.9 g/dL (3.4-5.0); Alkaline Phosphatase 132 U/L (46-116); BUN 10 mg/dL (7-18); Bilirubin, Total 0.19 mg/dL (0.2-1.0); CREATININE 0.5 mg/dL (0.55-1.02); Chloride 106 mmol/L (98-107); Estimated GFR 106.64 (mL/min/1.73m2); Glucose 90 mg/dL (74-106); Potassium 4.1 mmol/L (3.5-5.1); Sodium 140 mmol/L (136-145); Total Protein 6.4 g/dL (6.4-8.2)
[2024-07-05] MEDS: Lactobacillus Acidophilus CAP 2 CAP PO ×2 (07:16→20:57)
[2024-07-05] MEDS: Gabapentin 300 MG CAP 900 MG PO ×3 (07:16→20:57)
[2024-07-05] MEDS: Budesonide/Formoterol 80/4.5 6.9 GM 60 PUFF INH IH ×2 (08:02→20:28)
[2024-07-05] MEDS: Tiotropium Bromide-Respimat 10 PUFF INH 2 PUFF IH (08:03)
[2024-07-05 08:14] VITALS: BP 145/69; PULSE 85; RESP 18; TEMP 36.8; O2SAT 95
--- NOTE | 2024-07-05 09:28 | PT.INTREAT ---
PT Notes Visit Reasons: trimalleolar fracture right ankle, UTI, Morbid Obe Date: 07/04/2024 PRECAUTIONS: Fall risk. Standard precautions. Per Dr. Castaneda as of 07/03/2024, protected weight bearing on the R LE with posterior leg splint on the R and post-op shoe on the L (to balance leg length), use FWW. SUBJECTIVE: Pt in bed when approached for therapy this morning. agreed to participating with therapy session. OBJECTIVE: Villatoro catheter, RLE posterior leg splint? PAIN: 12/26 ankle VITALS: Closely monitored by nursing Therapeutic Activities 71099: Direct one-on-one instruction in dynamic activities to improve functional performance. ?? BED MOBILITY/TRANSFERS? Rolling L/R: supervision Supine-sit: ?supervision? Sit-supine: ? supervision? Sit-stand: ? SBA ? Stand-sit: ??SBA ? Bed-Commode:? ?SBA ? Commode-bed: SBA Provided skilled cues and instruction on performance and technique throughout. Gait Training 78812: Direct one-on-one instruction and skilled instruction in: Employing an assistive device Modified weight-bearing status Movement sequencing Turning and movement with proper form Provided verbal cues for equipment management and technique Provided instruction in gait pattern Patient education regarding pacing and breathing techniques to maximize activity tolerance? GAIT? Assistive Device: ??FWW ? Weight bearing: Protected weight bearing RLE Assist: ?SBA ? Distance:??20'x1 with 180degree turn at 10' to get back to EOB ? Deviation: ? antalgic? ASSESSMENT:?Pt education about importance of not weight shifting on RLE by using LLE as pivot leg. cue for emphasis with BUE weight bearing to improve safety and maintain precaution. PLAN: Continue with balance training, global strengthening and general conditioning for improved safety, mobility and activity tolerance until pt is ready for DC. TREATMENT CODE/TIME: [id number] 25mins (9:05-9:30am)
[2024-07-05] MEDS: Methocarbamol 500 MG TAB PO ×4 (09:37→20:57)
[2024-07-05] MEDS: Normal Saline Flush 10 ML SYR IVP ×2 (09:37→20:58)
[2024-07-05 09:46] VITALS: PULSE 98
[2024-07-05 11:44] VITALS: BP 145/80; PULSE 80; RESP 20; TEMP 37; O2SAT 95
--- NOTE | 2024-07-05 14:28 | DI.VRAD_ITS ---
PROCEDURE INFORMATION: Exam: CT Right Lower Extremity, Ankle Exam date and time: 07/05/2024 12:58 PM Age: 63 years old Clinical indication: Other: Evaluation of intra-articular involvement TECHNIQUE: Imaging protocol: CT of the right lower extremity without contrast was performed. Exam focused on the ankle. COMPARISON: CR XR ANKLE RT COMPLETE 07/03/2024 3:44 PM (report not provided) FINDINGS: Tubes, catheters and devices: A fiberglass splint is again present. Bones/joints: There is again acute comminuted fracture involving the distal tibia, with extension through the anterior and posterior malleoli, and oblique extension through the base of the medial malleolus. There are variable degrees of displacement and multifocal intra-articular involvement of the tibial plafond, with splaying of articular fragments across much of the plafond. There is also acute, mildly displaced fracture extending horizontally through the base of the lateral malleolus with mild medial angulation. The ankle mortise is irregularly disrupted, mildly widened laterally and narrowed medially. There also appears to be nondisplaced, obliquely oriented fracture involving the talus, extending from the lateral aspect of the dome posteriorly and medially to the articular surface of the posterior subtalar joint. No other fracture is identified. Aside from the ankle mortise, the joint spaces are normally aligned. There are variable degenerative changes. The bones appear osteopenic. Soft tissues: There is moderate associated soft tissue swelling about the ankle. IMPRESSION: 1. Acute comminuted intra-articular distal tibial fracture with involvement of the anterior and posterior malleoli and base of the medial malleolus. 2. Acute lateral malleolar fracture. 3. Irregular disruption of the ankle mortise. 4. Apparent nondisplaced talar fracture. 5. Variable degenerative changes. 6. Apparent osteopenia. Dictated and Authenticated by: Howard Johnson MD. Ordering:JORDAN Braun MD
[2024-07-05] MEDS: hydroCHLOROthiazide 12.5 MG TAB 6.25 MG PO (14:30)
[2024-07-05] MEDS: Lisinopril 5 MG TAB PO (14:31)
[2024-07-05] MEDS: Ketorolac 30 MG/ML VIAL IVP (14:32)
--- NOTE | 2024-07-05 15:00 | PGE_ITS ---
Date of Service Date of service: 07/05/24 Time of Service: 15:00 Assessment and Plan Assessment and plan (1) Displaced trimalleolar fracture of right ankle: Start date: 07/03/24 Status: Acute Assessment and plan: This is a 63-year-old lady with fall and fracture of her right ankle 1-1/2 weeks prior to this admission now with trimalleolar fracture and advancing of displacement with fibular fracture while ambulating on her previous fracture. She did have a walking boot previously. She is morbidly obese and male PT evaluation for safe return home tonight. She will be admitted for observation and further physical therapy with patient to walk with bariatric walker she has at home and return home to her elderly mother who could be helpful. Long-term she will need fixation of the right ankle and will be seeing [facility] orthopedics as an outpatient. Pain management while hospitalized which may be complicated by her chronic fentanyl patch use for chronic back pain. DVT prophylaxis per orthopedics. She is a full code. 07/04/2024 Plan of care was reiterated with the patient patient this afternoon. I am going to attempt to transfer the patient again on Saturday at the patient's wishes to either [facility] or [facility]. My guess is that she will have to follow-up in their clinic prior to her surgery. 07/05/24 Pt will remain overnight and we will attempt to transfer her to [facility] or [facility] in the am Qualifiers: Encounter type: initial encounter Fracture type: closed Qualified Code(s): S82.851A - Displaced trimalleolar fracture of right lower leg, initial encounter for closed fracture (2) UTI (urinary tract infection): Start date: 07/03/24 Status: Acute Assessment and plan: Patient does have suggestive for UTI with treated with oral antibiotic therapy with urine culture performed. Adjust oral antibiotics according to culture report if positive. If negative, patient could be placed on Macrodantin for prophylaxis which has been done in the recent past. 07/04/2024 Waiting on urine culture results. Patient has a history of UTIs and I will attempt to look at old urine culture results to see if I can determine a pattern. 07/05/24 Urine cultures show GNR with over 100k cfu's Qualifiers: Urinary tract infection type: acute cystitis Hematuria presence: without hematuria Qualified Code(s): N30.00 - Acute cystitis without hematuria (3) Morbid obesity: Status: Chronic Assessment and plan: This complicates her ability to ambulate and osteoporosis as well as risk for DVT. Weight loss advised the patient losing weight overall. She was prediabetic in the past but not overtly diabetic presently. (4) COPD (chronic obstructive pulmonary disease): Status: Chronic Assessment and plan: Continue outpatient medical therapy with inhalers. This is not exacerbated. Qualifiers: COPD type: chronic bronchitis Chronic bronchitis type: simple Qualified Code(s): J41.0 - Simple chronic bronchitis (5) Chronic right-sided lumbar radiculopathy: Status: Chronic Assessment and plan: Continue fentanyl patches which are changed every 48 hours at 112 mcg/h. (6) Tobacco use disorder: Status: Chronic Assessment and plan: Long-term advised complete cessation. (7) Depression: Status: Chronic Assessment and plan: Continue outpatient medical therapy. Qualifiers: Depression Type: major depressive disorder Major depression recurrence: recurrent Active/Remission status: currently active Major depression episode severity: moderate Qualified Code(s): F33.1 - Major depressive disorder, recurrent, moderate (8) Essential hypertension: Assessment and plan: Continue outpatient medical therapy adjust as needed. Subjective Subjective Interval history since last seen: Patient seen and examined in her room this morning. Plan of care discussed with patient as well as the multidisciplinary team. Patient does complain of mild right lower extremity pain but is otherwise without significant complaint Exam Narrative Exam Narrative: Constitutional: Alert and oriented x3. Appears stated age. Normal body habitus. Head: Normocephalic, no trauma. Eyes: Pupils PERRL, Red reflex noted, EOM's intact. Eyelids symmetrical without lesions, discharge, or swelling. Chest: RRR, Normal S1, S2, distal pulses intact. Resp: Lungs clear to auscultation bilaterally, no wheezes, rales, or rhonchi. Abdomen: Soft, non-distended, Normoactive bowel sounds all 4 quads. Musculoskeletal: Unable to assess gait, lower extremities erythemic, appears to be chronic venous stasis, she reports she does have chronic cellulitis. Does have swelling noted to her right ankle and it is rotated outwards distal dorsal pedal pulses intact. Extremity is warm, cap refill less than 2 seconds. Skin: No suspicious rashes or lesions. Capillary refill less than 2 sec. Neurologic: Cranial nerves II-XII intact. Alert and oriented x 3. Motor: No deficits noted. Sensory: Intact bilaterally all 4 extremities. Hematologic/Lymphatic: No ecchymosis, no lymphadenopathy. Objective Last Vital Signs Temp 37 C 07/05/24 11:44 Pulse 80 07/05/24 11:44 Resp 20 07/05/24 11:44 BP 145/80 H 07/05/24 11:44 Pulse Ox 95 07/05/24 11:44 Laboratory Results - last 24 hr 07/05/24 06:33 WBC 5.61 RBC 4.22 Hgb 10.7 L Hct 36.2 MCV 86 MCH 25.4 L MCHC 29.6 L RDW 13.7 Plt Count 373 MPV 8.6 Sodium 140 Potassium 4.1 Chloride 106 Carbon Dioxide 28.0 Anion Gap 6.0 BUN 10 Creatinine 0.5 L Est GFR (CKD-EPI 2020) 106.64 Glucose 90 Calcium 9.0 Total Bilirubin 0.19 L AST 6 L ALT 10 L Alkaline Phosphatase 132 H Total Protein 6.4 Albumin 2.9 L Time Spent with Patient Time Spent with Patient: 25-34 minutes Time was spent: preparing to see the patient(eg.review tests), obtaining and/or reviewing separately otained hiistory, ordering medications,tests, procedures, referring, communicating with other health manager critical care unit, indepentently interpreting results, counseling the patient and care coordination
[2024-07-05 15:01] VITALS: BP 148/90; PULSE 77; RESP 19; TEMP 37.7; O2SAT 99
[2024-07-05] MEDS: Acetaminophen 500 MG TAB 1000 MG PO (18:13)
[2024-07-05] MEDS: Doxepin 50 MG CAP 200 MG PO (20:56)
[2024-07-05] MEDS: Simvastatin 20 MG TAB PO (20:57)
[2024-07-05] MEDS: Tamsulosin 0.4 MG CAPCR PO (20:57)
[2024-07-05 21:08] VITALS: BP 128/68; PULSE 91; RESP 18; TEMP 36.9; O2SAT 97
[2024-07-06] VITALS (7 sets, daily range): BP systolic 125–139; BP diastolic 55–82; PULSE 78–91; RESP 15–18; TEMP 36.2–37.2; O2SAT 90–97
--- NOTE | 2024-07-06 01:43 | PT.INTREAT ---
PT Notes Visit Reasons: trimalleolar fracture right ankle, UTI, Morbid Obe Physical Therapy Treatment Note Date: 07/06/2024 Precautions: Fall risk. Standard precautions. Per Dr Castaneda as of 07/03/2024, NWB on the R LE with AD, may do protected weight bearing if patient is unable and weak. Transfers only with nursing staff, ALWAYS LEAD WITH LEFT FOOT TO TRANSFER SURFACE. Ambulation training with physical therapy only. Subjective: Would like to minimize movement to essential transfers only until seen for definitive surgery at [facility] in a day or two. Was agreeable to positioning self in bed so that her B LEs are elevated and not dangling at edge of bed. Continues to report pain in the R leg and foot at rest and with movement. Objective: General Observation: Patient lying in hospital bed in ED. Head of bed 45 degrees. Telemetry monitoring in place. Mental Status: Alert and oriented x 4 Pain: Moderate to severe with movement Vital Signs: Closely monitored by nursing staff Bed Mobility/Transfers: Minimal cueing provided for correct WB precaution, use of B hands as needed for support, movement sequence, AD management, and posture to reduce fall risk and minimize pain report Supine?sit: stand by assist Sit?stand: contact guard assist Stand?sit: contact guard assist Bed<>bedside commode: contact guard assist Gait: Completed side side pivot with the L LE leading, R LE sliding along with contact guard assist using bariatric FWW. Pain increased but no loss of balance seen. Patient needed assistnce on R LE onto bed. ensured that r LE was elevated using pillow for comfort and for edema reduction/minimization. THERA EX: Gluteal sets 5sh x 10 Quads sets 5 sh x 10 gentle Toe curls x 10 Balance: Static Sitting: Normal Dynamic Sitting: Normal Static Standing: Poor Dynamic Standing: Poor ASSESSMENT:?? Patient previously with non-displaced fracture through posterior malleolus, medial tibial metaphysis and posterior talus on the right lower extremity as of 06/20/2024 from a fall she sustained now presents with displaced trimalleolar fracture S/P closed reduction with short leg plaster splint in place. Anxiety level high, signs of depression worsening. Patient requires conatct guard to minimal assist dependending on pain level at time of visit. Protected weight bearing only through the R affected LE. She resides at home with her mother and at baseline using front-wheeled walker and 4 wheeled walker independently. Per orthopod recommendation, may need transfer to a tertiary care facility for a more definitive orthopedic/surgical intervention. Plan of Care/Treatment Plan: 1-2x/day, 7 days/week x 1 week. AMBULATION WITH THERAPY ONLY. NURSING MAY DO ESSENTIAL TRANSFERS WITH PATIENT. Will hold off on any ambulation training until fracture is definitively fixated/stabilized. DISCHARGE RECOMMENDATIONS: [] Home with no services [] [] Home with services [specify] [] Home with outpatient PT [] [X] SNF for continued rehabilitation. Patient will benefit from snf facility placement for continued skilled physical therapy services in order to progress mobility level, strength, and balance in preparation for a safe discharge to home. [] [facility] Care [] [] SNF versus LTC based on ability to participate and progress [] TREATMENT CODE/TIME: Session 1--45177 x 17 minutes for 1 unit (09:10-09:27). Session 2--55004 x 20 minutes for 1 unit (13:43-14:03)
[2024-07-06] MEDS: oxyCODONE 10 MG TAB PO ×4 (01:59→21:47)
[2024-07-06] MEDS: Heparin 5,000 UNITS/ML VIAL 5000 UNITS SC ×3 (06:48→21:54)
[2024-07-06] MEDS: Tiotropium Bromide-Respimat 10 PUFF INH 2 PUFF IH (07:44)
[2024-07-06] MEDS: Budesonide/Formoterol 80/4.5 6.9 GM 60 PUFF INH IH ×2 (07:45→20:15)
[2024-07-06] MEDS: Acetaminophen 500 MG TAB 1000 MG PO (07:48)
[2024-07-06] MEDS: hydroCHLOROthiazide 12.5 MG TAB 6.25 MG PO (08:45)
[2024-07-06] MEDS: Gabapentin 300 MG CAP 900 MG PO ×3 (08:45→21:47)
[2024-07-06] MEDS: Cefpodoxime 200 MG TAB PO (08:45)
[2024-07-06] MEDS: Calcium 600mg/Vit D 200U TAB 1 TAB PO ×2 (08:45→21:48)
[2024-07-06] MEDS: Lisinopril 5 MG TAB PO (08:46)
[2024-07-06] MEDS: Lactobacillus Acidophilus CAP 2 CAP PO ×2 (08:46→21:47)
[2024-07-06] MEDS: Methocarbamol 500 MG TAB PO ×4 (08:47→21:47)
[2024-07-06] MEDS: Normal Saline Flush 10 ML SYR IVP ×2 (09:43→21:49)
--- NOTE | 2024-07-06 11:08 | PDOC.CMPRO ---
Date of service: 07/06/24 Time of Service: 12:24 Care Management Progress Note Progress Note Text Progress Note Text: Maryjane was lying in bed when CM met with her. She stated that she was informed that she will likely be transferred to [facility] tomorrow, pending bed availability. Per report, she is scheduled for surgery at [facility] on Saturday. CM discussed discharge planning considerations with her; she stated that she would prefer to return home, but understands that she has limitations. She expressed understanding that she may require short term rehab post surgically. CM contacted [facility], the rehab facility where she spent time after discharge from [facility], to verify dates and determine if she has remaining [facility] benefit days, and found that she was admitted at [facility] from 05/13/24-06/19/24. CM informed Maryjane that she will likely have the opportunity to work with care management at [facility] to discuss discharge planning considerations further, as she will be receiving acute care at [facility]. CM will continue to follow. Discharge Potential Discharge Needs: Other (transfer to tertiary facility for surgery) Anticipated Barriers to Discharge: Bed availability Patient/Family Education Needs: Review discharge instructions, discuss Ask Me Three Transportation: EMS Plan: Maryjane will be transferred to [facility], pending bed availability, where she will have surgical intervention for her ankle fracture. She will transport via EMS, coordinated by RN color making supervisor, as it is an acute transfer. She will discuss discharge planning considerations with staff at [facility]. She will follow up with her PCP and discharge plan of care. CM will continue to follow. SDOH(Care Management) Screening Will the Patient Participate in the Screening?: Declined to provide
--- NOTE | 2024-07-06 12:16 | W.PM.PROGNOT ---
Date of Service Date of service: 07/06/24 Time of Service: 12:16 Assessment and Plan Assessment and plan (1) Displaced trimalleolar fracture of right ankle: Start date: 07/03/24 Status: Acute Assessment and plan: This is a 63-year-old lady with fall and fracture of her right ankle 1-1/2 weeks prior to this admission now with trimalleolar fracture and advancing of displacement with fibular fracture while ambulating on her previous fracture. She did have a walking boot previously. She is morbidly obese and male PT evaluation for safe return home tonight. She will be admitted for observation and further physical therapy with patient to walk with bariatric walker she has at home and return home to her elderly mother who could be helpful. Long-term she will need fixation of the right ankle and will be seeing [facility] orthopedics as an outpatient. Pain management while hospitalized which may be complicated by her chronic fentanyl patch use for chronic back pain. DVT prophylaxis per orthopedics. She is a full code. 07/04/2024 Plan of care was reiterated with the patient patient this afternoon. I am going to attempt to transfer the patient again on Saturday at the patient's wishes to either [facility] or [facility]. My guess is that she will have to follow-up in their clinic prior to her surgery. 07/05/24 Pt will remain overnight and we will attempt to transfer her to [facility] or [facility] in the am 07/06/2024 Patient accepted in transfer to [facility] this will be done tomorrow Qualifiers: Encounter type: initial encounter Fracture type: closed Qualified Code(s): S82.851A - Displaced trimalleolar fracture of right lower leg, initial encounter for closed fracture (2) UTI (urinary tract infection): Start date: 07/03/24 Status: Acute Assessment and plan: Patient does have suggestive for UTI with treated with oral antibiotic therapy with urine culture performed. Adjust oral antibiotics according to culture report if positive. If negative, patient could be placed on Macrodantin for prophylaxis which has been done in the recent past. 07/04/2024 Waiting on urine culture results. Patient has a history of UTIs and I will attempt to look at old urine culture results to see if I can determine a pattern. 07/05/24 Urine cultures show GNR with over 100k cfu's 07/06/2024 Urine cultures reviewed and her infection is sensitive to Macrobid so we will switch from recurrent antibiotics of Macrobid for targeted coverage. Qualifiers: Urinary tract infection type: acute cystitis Hematuria presence: without hematuria Qualified Code(s): N30.00 - Acute cystitis without hematuria (3) Morbid obesity: Status: Chronic Assessment and plan: This complicates her ability to ambulate and osteoporosis as well as risk for DVT. Weight loss advised the patient losing weight overall. She was prediabetic in the past but not overtly diabetic presently. (4) COPD (chronic obstructive pulmonary disease): Status: Chronic Assessment and plan: Continue outpatient medical therapy with inhalers. This is not exacerbated. Qualifiers: COPD type: chronic bronchitis Chronic bronchitis type: simple Qualified Code(s): J41.0 - Simple chronic bronchitis (5) Chronic right-sided lumbar radiculopathy: Status: Chronic Assessment and plan: Continue fentanyl patches which are changed every 48 hours at 112 mcg/h. (6) Tobacco use disorder: Status: Chronic Assessment and plan: Long-term advised complete cessation. (7) Depression: Status: Chronic Assessment and plan: Continue outpatient medical therapy. Qualifiers: Depression Type: major depressive disorder Major depression recurrence: recurrent Active/Remission status: currently active Major depression episode severity: moderate Qualified Code(s): F33.1 - Major depressive disorder, recurrent, moderate (8) Essential hypertension: Assessment and plan: Continue outpatient medical therapy adjust as needed. Subjective Subjective Interval history since last seen: Patient seen and examined in her room this morning. Plan of care discussed with patient, as well as with orthopedic surgery, as well as the multidisciplinary team. The plan today transferred department was communicated to the patient Exam Narrative Exam Narrative: Constitutional: Alert and oriented x3. Appears stated age. Normal body habitus. Head: Normocephalic, no trauma. Eyes: Pupils PERRL, Red reflex noted, EOM's intact. Eyelids symmetrical without lesions, discharge, or swelling. Chest: RRR, Normal S1, S2, distal pulses intact. Resp: Lungs clear to auscultation bilaterally, no wheezes, rales, or rhonchi. Abdomen: Soft, non-distended, Normoactive bowel sounds all 4 quads. MS: Splint/cast placed on the right lower extremity Skin: No suspicious rashes or lesions. Capillary refill less than 2 sec. Neurologic: Cranial nerves II-XII intact. Alert and oriented x 3. Motor: No deficits noted. Sensory: Intact bilaterally all 4 extremities. Hematologic/Lymphatic: No ecchymosis, no lymphadenopathy. Objective Last Vital Signs Temp 37.2 C 07/06/24 11:25 Pulse 91 H 07/06/24 11:25 Resp 16 07/06/24 11:25 BP 125/82 07/06/24 11:25 Pulse Ox 90 L 07/06/24 11:25 Time Spent with Patient Time Spent with Patient: 25-34 minutes Time was spent: preparing to see the patient(eg.review tests), obtaining and/or reviewing separately otained hiistory, ordering medications,tests, procedures, referring, communicating with other health career development engineer, indepentently interpreting results, counseling the patient and care coordination
--- NOTE | 2024-07-06 12:38 | PHA.REVIEW2 ---
Pharmacy Admission Review Admission Clinical Review Admission Pharmacy Review: UTI (urinary tract infection) (Acute) Displaced trimalleolar fracture of right ankle (Acute) No Known Drug Allergies Allergy (Unknown, Verified 07/03/24 13:19) none Resuscitation Status Full Code Height 5 ft 5 in Weight 95.254 kg Comments Comments/Follow Ups: Has been accepted for transfer to [facility] tomorrow Pharmacy Admission Review Renal Dosing Renal Dosing: BUN 10 mg/dL (7-18) 07/05/24 06:33 Creatinine 0.5 mg/dL (0.55-1.02) L 07/05/24 06:33 Medications needing adjustments: Reviewed (CrCl 67.43 mL/min) List of meds needing interventions: Current medications are okay Anticoagulation Anticoagulation: Hgb 10.7 g/dL (11.2-15.7) L 07/05/24 06:33 Hct 36.2 % (36.0-46.0) 07/05/24 06:33 Plt Count 373 10^3/uL (130-400) 07/05/24 06:33 Creatinine 0.5 mg/dL (0.55-1.02) L 07/05/24 06:33 DVT Prophylaxis: Reviewed Medications: Heparin (q8h) Opiate Usage Evaluate Pain Scale/Pains Meds: Reviewed (Fentanyl 112mcg/hr patch and oxycodone 10mg q4h PRN - 40mg in past 24 hours) Scheduled Bowel Reg ordered if on Opiates?: No (PRN docusate / Miralax) Relevant Labs Relevant Labs: Sodium 140 mmol/L (136-145) 07/05/24 06:33 Potassium 4.1 mmol/L (3.5-5.1) 07/05/24 06:33 Chloride 106 mmol/L (98-107) 07/05/24 06:33 Magnesium 1.8 mg/dL (1.8-2.4) 07/04/24 06:52 Electrolytes, C-Reactive P, ESR: Reviewed (No new labs for today) Cardiac Review BP, HR, EF%: Reviewed (BP WNL, HR 91, Ox 90) List meds needing interventions: Has order for HCTZ 6.25mg daily and lisinopril 5mg daily QTc Review QTc: Reviewed (442 from 05/01/24 - most recent EKG on file) IV to PO Switch IV Medications: Reviewed (ketorolac) Home Meds Home Med List reviewed: Reviewed Relevent Home Meds Not ordered & why?: fenofibrate (hold per progress note), diclofenac (PRN), Trelegy (substituted with Symbicort and Spiriva per pharmacy protocol), furosemide (PRN weight gain) and Bactrim (therapy completed) Patients vitmain D3 put in as patients own med, per nurse patient is unlikely to have this brought in for them. Current Meds Current Medication Order Review: Reviewed Pharmacy Antibiotic Review Relevant Labs: WBC 5.61 10^3/uL (4.4-10.8) 07/05/24 06:33 Temperature 37.2 C Temperature 36.8 C Temperature 36.8 C Temperature 36.8 C Microbiology 07/03/24 18:22 Urine Culture - Final Urine - Cath Villatoro Indwelling Citrobacter Freundii Pharmacy Antibiotic Activity: C/S review and Reviewed, no change Comments: Patient was on cefpodoxime (started 07/03) but was switched today to Macrobid PO 100mg BID due to culture results. Urine culture growing citrobacter freundii that is resistant to cefazolin and intermediate with ceftazidime and ceftriaxone. Comments Comments/Follow Ups: Has been accepted for transfer to [facility] tomorrow
[2024-07-06] MEDS: Ketorolac 30 MG/ML VIAL IVP (12:53)
[2024-07-06] MEDS: fentaNYL 12 MCG PATCH TD (12:53)
[2024-07-06] MEDS: fentaNYL 100 MCG PATCH TD (12:55)
--- NOTE | 2024-07-06 13:31 | NUR.NOTE ---
Documentation reviewed with Mile Ang, student FLOORING GRADER. Fariba Wright, MSN, RNC-OB, clinical instructor
--- NOTE | 2024-07-06 13:34 | PGE_ITS ---
Date of Service Date of service: 07/06/24 Time of Service: 12:25 Assessment and Plan Assessment and plan (1) Displaced trimalleolar fracture of right ankle: Status: Acute Qualifiers: Encounter type: initial encounter Fracture type: closed Qualified Code(s): S82.851A - Displaced trimalleolar fracture of right lower leg, initial encounter for closed fracture (2) Fracture of right tibia: Status: Acute (3) Pathological fracture of ankle: Status: Acute Assessment and plan: Maryjane is a 63-year-old female who unfortunately has failed nonoperative manage ment of her pathologic fracture about the right ankle due to osteoporosis. She has had further progression of fractures about the distal tibia, posterior malleolus, medial malleolus, distal fibula, talus. She did receive a dose of zoledronic acid when she was here at her last admission approximately June 21. Unfortunately, this fracture is not maintaining any position with the current management thus needs more surgical treatment to stabilize the fracture. This is complicated with her other medical comorbidities, chronic pain, epidural abscess history, morbid obesity, prolonged deconditioning. Given the complexity this case this needs tertiary involvement. I have reached out to [facility] to initiate transfer for surgical intervention which they agree is necessary. At this point she is medically stable. We will continue to work with [facility] to transfer. I discussed all this with Maryjane and her mom. All of her questions were answered. Subjective Subjective Interval history since last seen: Maryjane reports some continued pain about the right leg although stable and not getting worse. She denies any worsening numbness or tingling. She has stumbled when trying to mobilize with physical therapy. CT scan was performed yesterday. She does report continued pain although mostly controlled at this point. Exam Narrative Exam Narrative: Sitting up in the hospital bed. No acute distress. Alert and orient x 3. Evaluation the right lower extremity shows a resting externally rotated position of the right leg, comparable to the contralateral side. A splint is intact. No significant pain with palpation of the proximal leg or knee. She is able demonstrate great toe extension and flexion. She endorses sensation over the deep and superficial peroneal nerve and tibial nerve. Capillary refill less than 3 seconds. Objective Last Vital Signs Temp 37.2 C 07/06/24 11:25 Pulse 91 H 07/06/24 11:25 Resp 16 07/06/24 11:25 BP 125/82 07/06/24 11:25 Pulse Ox 90 L 07/06/24 11:25 Objective Narrative Objective Narrative: CT scan of the right leg was reviewed, performed yesterday. This shows significant demineralization of the bones as seen previously on the CT scan performed on 06/20/2024. However, since that study there has been significant destruction of the bone surrounding the ankle. There is a distal tibia fracture is runs transversely in the metaphyseal region with varus collapse. There is a completely displaced medial malleolus with notable comminution. The posterior malleolar fracture fragment is displaced slightly posteriorly. The talus is a large underneath the tibia although some slight displacement is noted. There is joint impaction and comminution seen. The distal fibula is also fractured and displaced. There is a fracture seen once again through the posterior aspect of the talus although not extending much into the articular surface. Once again the bone is poorly demineralized with large osteoporotic lesions seen throughout. Time Spent with Patient Time Spent with Patient: 35-49 minutes Time was spent: preparing to see the patient(eg.review tests), obtaining and/or reviewing separately otained hiistory, referring, communicating with other health rn home care and care coordination
[2024-07-06] MEDS: Doxepin 50 MG CAP 200 MG PO (21:47)
[2024-07-06] MEDS: MacroBID 100 MG CAP PO (21:47)
[2024-07-06] MEDS: Simvastatin 20 MG TAB PO (21:48)
[2024-07-06] MEDS: Tamsulosin 0.4 MG CAPCR PO (21:49)
[2024-07-07] MEDS: oxyCODONE 10 MG TAB PO ×4 (02:17→21:52)
[2024-07-07] MEDS: Ketorolac 30 MG/ML VIAL IVP (02:17)
[2024-07-07] MEDS: Normal Saline Flush 10 ML SYR IVP ×3 (02:18→20:58)
[2024-07-07 03:09] VITALS: BP 94/76; PULSE 92; RESP 19; TEMP 36.5; O2SAT 91
[2024-07-07] MEDS: Acetaminophen 500 MG TAB 1000 MG PO (03:45)
[2024-07-07] MEDS: Heparin 5,000 UNITS/ML VIAL 5000 UNITS SC ×3 (06:35→21:53)
[2024-07-07] MEDS: Tiotropium Bromide-Respimat 10 PUFF INH 2 PUFF IH (08:10)
[2024-07-07] MEDS: Budesonide/Formoterol 80/4.5 6.9 GM 60 PUFF INH IH ×2 (08:11→20:13)
[2024-07-07 08:38] VITALS: BP 109/48; PULSE 87; RESP 18; TEMP 36.1; O2SAT 98
[2024-07-07] MEDS: hydroCHLOROthiazide 12.5 MG TAB 6.25 MG PO (09:04)
[2024-07-07] MEDS: Calcium 600mg/Vit D 200U TAB 1 TAB PO ×2 (09:05→20:57)
[2024-07-07] MEDS: MacroBID 100 MG CAP PO ×2 (09:05→20:57)
[2024-07-07] MEDS: Gabapentin 300 MG CAP 900 MG PO ×3 (09:05→20:57)
[2024-07-07] MEDS: Lactobacillus Acidophilus CAP 2 CAP PO ×2 (09:05→20:56)
[2024-07-07] MEDS: Methocarbamol 500 MG TAB PO ×4 (09:05→20:57)
--- NOTE | 2024-07-07 09:40 | CMPROGNOTE_ITS ---
Date of service: 07/07/24 Time of Service: 09:40 Care Management Progress Note Progress Note Text Progress Note Text: Maryjane was lying in bed visiting with her mother when CM met with her. She stated that she is looking forward to going to [facility] today, and having surgery tomorrow, as she is hoping that her pain will be less post surgically. CM provided a patient assistance packet, at her request. Per report, she is likely going to be transferred this evening, pending bed availability and transport. CM will continue to follow. Discharge Potential Discharge Needs: Other (transfer to [facility]) Anticipated Barriers to Discharge: Bed availability Patient/Family Education Needs: Review discharge instructions, discuss Ask Me Three Transportation: EMS Plan: Maryjane will be transferred to [facility], pending bed availability, where she will have surgical intervention for her ankle fracture. She will transport via EMS, coordinated by RN supervisor liquefaction, as it is an acute transfer. She will discuss discharge planning considerations with staff at [facility]. She will follow up with her PCP and discharge plan of care. CM will continue to follow. SDOH(Care Management) Screening Will the Patient Participate in the Screening?: Declined to provide
[2024-07-07 11:04] VITALS: BP 124/47; PULSE 85; RESP 18; TEMP 37.1; O2SAT 97
--- NOTE | 2024-07-07 11:48 | DSE_ITS ---
Date of service: 07/07/24 Time of Service: 11:48 DS: Diagnosis Discharge Diagnosis (1) Displaced trimalleolar fracture of right ankle: Status: Acute (2) Fracture of right tibia: Status: Acute (3) Pathological fracture of ankle: Status: Acute Discharge Plan Disposition Patient Disposition: Transfer-Acute Inpatient Care Specific Acute Inpt Facility: [facility] Condition: Stable Discharge Details Reason For Visit: trimalleolar fracture right ankle, UTI, Morbid Obe Admit Date/Time: 07/03/24 19:41 Admit Provider: Beto Leung Attending Provider: Beto Leung Primary Care Provider: Shahzad Olivarez Hospital Course Hospital Course: Assessment and Plan Assessment and plan (1) Displaced trimalleolar fracture of right ankle: Start date: 07/03/24 Status: Acute Assessment and plan: This is a 63-year-old lady with fall and fracture of her right ankle 1-1/2 weeks prior to this admission now with trimalleolar fracture and advancing of displacement with fibular fracture while ambulating on her previous fracture. She did have a walking boot previously. She is morbidly obese and male PT evalu ation for safe return home tonight. She will be admitted for observation and further physical therapy with patient to walk with bariatric walker she has at home and return home to her elderly mother who could be helpful. Long-term she will need fixation of the right ankle and will be seeing [facility] orthopedics as an outpatient. Pain management while hospitalized which may be complicated by her chronic fentanyl patch use for chronic back pain. DVT prophylaxis per orthopedics. She is a full code. Qualifiers: Encounter type: initial encounter Fracture type: closed Qualified Code(s): S82.851A - Displaced trimalleolar fracture of right lower leg, initial encounter for closed fracture (2) UTI (urinary tract infection): Start date: 07/03/24 Status: Acute Assessment and plan: Patient does have suggestive for UTI with treated with oral antibiotic therapy with urine culture performed. Adjust oral antibiotics according to culture report if positive. If negative, patient could be placed on Macrodantin for prophylaxis which has been done in the recent past. Qualifiers: Hematuria presence: without hematuria Urinary tract infection type: acute cystitis Qualified Code(s): N30.00 - Acute cystitis without hematuria (3) Morbid obesity: Status: Chronic Assessment and plan: This complicates her ability to ambulate and osteoporosis as well as risk for DVT. Weight loss advised the patient losing weight overall. She was prediabetic in the past but not overtly diabetic presently. (4) COPD (chronic obstructive pulmonary disease): Status: Chronic Assessment and plan: Continue outpatient medical therapy with inhalers. This is not exacerbated. Qualifiers: COPD type: chronic bronchitis Chronic bronchitis type: simple Qualified Code(s): J41.0 - Simple chronic bronchitis (5) Chronic right-sided lumbar radiculopathy: Status: Chronic Assessment and plan: Continue fentanyl patches which are changed every 48 hours at 112 mcg/h. (6) Tobacco use disorder: Status: Chronic Assessment and plan: Long-term advised complete cessation. (7) Depression: Status: Chronic Assessment and plan: Continue outpatient medical therapy. Qualifiers: Active/Remission status: currently active Depression Type: major depressive disorder Major depression episode severity: moderate Major depression recurrence: recurrent Qualified Code(s): F33.1 - Major depressive disorder, recurrent, moderate (8) Essential hypertension: Assessment and plan: Continue outpatient medical therapy adjust as needed. History of Present Illness History of Present Illness Chief Complaint: Increasing right ankle pain status post ankle fracture from recent fall. Narrative: This is a 63-year-old morbidly obese female patient who has severe osteoporosis presenting to the ED because of increasing pain and deformity of her right ankle when she was ambulating with walking boot status post ankle fracture after fall 1-1/2 weeks prior to presentation. She was hospitalized at that time and had a walking boot with weightbearing as tolerated. Imaging did reveal now a trimalleolar fracture which shows new fractures with displacement when previously he had nondisplaced fractures involving only the posterior and medial malleolus. Dr. Castaneda was consulted and reduced the fracture under conscious sedation with cast applied. Patient will be nonweightbearing. She will need follow-up at [facility] with orthopedics where she has had previous surgery for a spinal abscess earlier this fall. This is not an urgent or emergent surgery but may require fixation. She does have chronic pain with fentanyl patch having chronic back pain with failed surgery in the past as well as recent surgery for the abscess. A management may be an issue and she was given oxycodone orally which was helpful with her usual fentanyl patches changed every 48 hours. She does have elderly mother at home who could be helpful and she also has a bariatric walker at home. She failed PT evaluation for safety to return home in the ED and will be admitted for observation and further physical therapy to return home. Orthopedics was consulted and will follow while hospitalized. They did recommend DVT prophylaxis because of the patient's obesity and immobility and subcu heparin will be initiated with patient to be discharged either on twice daily aspirin 325 mg or Eliquis depending on [facility] orthopedics recommendations. Patient is a full code. Review of Systems Narrative: 13 point review of systems otherwise unrevealing or stable. [facility] All Active Problems (Updated 07/04/24 @ 06:56 by Beto Leung) UTI (urinary tract infection) (Acute) Fracture of right tibia (Acute) Displaced trimalleolar fracture of right ankle (Acute) Fracture of right talus (Acute) Pathological fracture of ankle (Acute) Fracture of posterior malleolus of right tibia (Acute) Right leg weakness (Acute) Frequent falls (Acute) Traumatic hematoma of right shoulder (Acute 03/25/24) Bilateral cellulitis of lower leg (Acute ~02/2024) Osteoporosis (Chronic) Microcytic anemia (Chronic) Chronic right-sided lumbar radiculopathy (Chronic) Tinea pedis (Acute) Ambulatory dysfunction (Acute) Multiple falls (Acute) Prediabetes (Acute) Cellulitis (Acute) Lumbar spinal stenosis (Chronic) Hip abductor tendinitis (Acute) Pain in left hip (Acute) COVID-19 (Acute) Fatigue (Acute) Left sided sciatica (Acute) Morbid obesity (Chronic) Chronic bilateral low back pain without sciatica (Acute) History of arthroscopy of right knee (Acute 11/08/14) History of cholecystectomy (Acute) History of esophagogastroduodenoscopy (Acute) History of hip replacement (Acute) History of surgical procedure (Acute) Primary osteoarthritis of left knee (Chronic) Hip pain (Acute) COPD (chronic obstructive pulmonary disease) (Chronic) Weight disorder (Chronic) UP AND DOWN Transaminase or LDH elevation (Chronic) Tobacco use disorder (Chronic) Sleep disturbance (Chronic 07/18/05) Sedative, hypnotic or anxiolytic abuse (Chronic) [facility]; ? GRAND MAL SEIZURE, SECONDARY TO BENZO WITHDRAWAL 2006; one episode without any recurrence; occurred due to anxiety prior to incarceration Pneumonia (Acute) Malnutrition (Acute) Injury of head (Chronic 11/16/06) History of back surgery (Chronic 10/17/17) L5-S1 facetectomy and lumbar body fusion [place] UVN Gastroparesis (Chronic 07/18/05) Gastric ulcer (Chronic 08/18/05) 08/24 EGD: DUODENITIS; REACTIVE GASTROPATHY; ANTRAL ULCERATION; HYPERPLASTIC SQUAMOUS MUCOSA; NEG H. PYLORI Depression (Chronic 07/18/05) history of 7 psych admissions 2009 Chronic back pain (Chronic 06/30/14) Anxiety (Chronic 07/18/05) Medical History Type 2 diabetes mellitus Essential hypertension History of fractured rib 09/12/23 Per [facility]. Left lateral 5th rib, anterior right rib 5&6. -hbCOPD (chronic obstructive pulmonary disease) Surgical History ULCER/STOMACH [facility]GERY 2006[facility] [place] of [facility] RIGHT/ replacement of hip 2006 [facility] [place]; HORSE ACCIDENTKNEE SURGERY 10/2014 LEFT KNEE; 01/2015 RIGHT KNEEEGD - MAC Cholecystectomy (~06/2013) Family History Mother Essential hypertension Hyperlipidemia StrokeGrandfather Essential hypertension StrokeFather No problems noted. Grandmother Essential hypertension StrokeGrandfather Essential hypertension StrokeGrandmother No problems noted. Son No problems noted. Son No problems noted. Social History Smoking/Tobacco Use Status: Current every day Tobacco Type: cigarettes Second Hand Exposure: No Smoking risk assessment performed?: Yes Alcohol Intake: never Drug use: Never Substance use type: does not use Details: Fent patch on and prescription for PRN oxy Household members: family Housing: apartment Communication Needs: None Pets and animals: Yes Pets and animals: dog(s) Sexually active: No Do you think of yourself as: straight/heterosexual What is your relationship status?: How often do you talk on the phone with friends or family?: three or more times per week How often do you get together with friends or relatives?: decline to answer How often do you attend mandaeism or denominational services?: 1-3 times per year Do you belong to any clubs or organized social groups?: no Panel score (0-1 are the most socially isolated patients): 1 What type of physical activity do you participate in: none Nikki/Restorationist: Episcopalian Seatbelt use: always Drive intox or ride w/intox driver manager: No Do you feel safe at home: Yes Do you feel safe in your relationship?: Yes Meds Allergies and Home Medications Allergies Allergy/AdvReac Type Severity Reaction Status Date / Time No Known Drug Allergies Allergy Unknown none Verified 07/03/24 13:19 Home Medications ?Medication ?Instructions ?Recorded ?Confirmed ?Type fluticasone fur. 100 mcg-umeclid 1 inh inhalation DAILY #28 ea 07/16/23 07/03/24 Rx 62.5 mcg-vilant 25 mcg inhalat.powder (Trelegy Ellipta) acetaminophen 325 mg tablet 650 mg (2 x 325 mg) PO Q4H PRN PRN 08/26/23 07/03/24 Rx #90 tabs cholecalciferol (vitamin D3) 1,250 1,250 mcg PO QWEEK #12 caps 01/01/24 07/03/24 Rx mcg (50,000 unit) capsule lisinopril 10 0.5 tab PO DAILY #45 tabs 03/12/24 07/03/24 Rx mg-hydrochlorothiazide 12.5 mg tablet doxepin 100 mg capsule 200 mg (2 x 100 mg) PO QHS #180 03/17/24 07/03/24 Rx caps fenofibrate 54 mg tablet 54 mg PO DAILY #90 tabs 04/07/24 07/03/24 Rx simvastatin 20 mg tablet 20 mg PO DAILY #90 tab-caps 04/07/24 07/03/24 Rx aripiprazole 20 mg tablet (Abilify) 40 mg (2 x 20 mg) PO DAILY #180 04/13/24 07/03/24 Rx tabs furosemide 20 mg tablet 20 mg PO DAILY PRN swelling #30 04/13/24 07/03/24 Rx tabs diclofenac sodium 75 mg 75 mg PO BID PRN back pain #180 04/23/24 07/03/24 Rx tablet,delayed release tab-caps fentanyl 100 mcg/hr transdermal 1 patch transdermal Q48H #10 ea 04/23/24 07/03/24 Rx patch fentanyl 12 mcg/hr transdermal 1 patch transdermal Q48H #10 ea 04/23/24 07/03/24 Rx patch gabapentin 600 mg tablet 900 mg (1.5 x 600 mg) PO TID #135 04/29/24 07/03/24 Rx tabs Lactobacillus acidoph-L.bulgaricus 2 tab PO BID 06/22/24 07/03/24 History 1 million cell tablet (Floranex) gabapentin 300 mg capsule 300 mg PO TID 06/22/24 07/03/24 History loperamide 2 mg capsule 2 mg PO Q2H PRN 06/22/24 07/03/24 History (Anti-Diarrheal (loperamide)) methocarbamol 500 mg tablet 500 mg PO QID 06/22/24 07/03/24 History tamsulosin 0.4 mg capsule 0.4 mg PO QHS 06/22/24 07/03/24 History nitrofurantoin macrocrystal 100 mg 100 mg PO BID #9 caps 06/24/24 07/03/24 Rx capsule oxycodone 10 mg tablet 10 mg PO TID PRN pain #30 tabs 06/30/24 07/03/24 Rx Exam Narrative Exam Narrative: General: Patient is morbidly obese, appears appropriate for age, alert and oriented x 3 and in no acute distress. HEENT: Normocephalic, eyes with pupils equal and reactive to light symmetrically, extraocular movement intact and sclera anicteric. Oropharynx with moist Koza and normal dentition. Neck: Supple without JVD. Back: Stooped posture without CVA tenderness. Lungs: No focalizing rales or rhonchi. Fair aeration and clear to auscultation and percussion. Breast: Exam deferred. Heart: Regular rate and rhythm with 4/6 systolic murmur left sternal border. No rub or gallop. Abdomen: Obese contour, soft and nontender with no palpable hepatosplenomegaly. No guarding or rebound. Bowel sounds positive all quadrants. Genitalia/rectal: Exam deferred. Extremities: No clubbing, cyanosis or pitting edema with nonpitting edema both lower extremities mostly over the right with casting covering her leg. She does have a well-healed scar over her right knee. Good capillary refill. Skin: Darkly tanned, normal color otherwise, warm and dry. No bruising. Neuro: Cranial nerves II through XII intact, no focal motor deficits. No tremor. Psych: Normal affect and mood. No abnormal thought processes. Remote and recent memory intact. Results Imaging Imaging Studies: EXAM: XR TIB/FIB RT Date of exam 07/03/2024 CLINICAL HISTORY: Fracture. TECHNIQUE: 2D digital imaging was performed. Two views. COMPARISON: No exams were available for comparison FINDINGS: BONES: Old distal tibial shaft fracture. Acute fractures again noted of the malleoli. Please see previous ankle films. No fractures are seen more superiorly in the tibia or fibula. There is a knee prosthesis which is unremarkable. No bony destructive lesion is seen. Visualized portion of knee and ankle joints are unremarkable. SOFT TISSUE: Normal. IMPRESSION: Fractures of the distal tibia and fibula. No additional fractures are noted more superiorly. EXAM: XR ANKLE RT COMPLETE Date of exam 07/03/2024 CLINICAL HISTORY: Post-reduction. TECHNIQUE: 2D digital imaging was performed of the right ankle. Three images were obtained. AP, lateral and oblique views were obtained. COMPARISON: CR XR ANKLE RT COMPLETE from 07/03/2024 FINDINGS: There is again seen a trimalleolar fracture of the right ankle. There has been improved alignment of the ankle, particularly improvement of the displaced medial and lateral malleolar fractures. The tibial talar joint has been reduced. The patient's ankle is in a cast. There is diffuse soft tissue swelling of the ankle. IMPRESSION: Trimalleolar fracture of the right ankle. There has been improved alignment of the ankle joint since the prior examination. EXAM: CT LOWER EXTREMITY RT WO Date of exam 06/21/2024 CLINICAL HISTORY: eval for ankle fx and acuity versus chronicity. TECHNIQUE: Imaging Protocol: Axial computed tomography images with coronal and sagittal reformatted images were created and reviewed. CONTRAST MATERIAL: Noncontrast COMPARISON: CR,XR XR ANKLE RT COMPLETE from 06/20/2024 FINDINGS: Exam is limited by image noise and bony demineralization. Bones: Nondisplaced fracture seen through the posterior malleolus, extending in the coronal plane. No separation at the articular surface. Additional nondisplaced fracture seen extending through the talus an oblique sagittal plane. No separation at the articular surface. No defect of the talar dome. The fracture extends to the posterior talocalcaneal joint. Additional fracture noted at the medial metaphysis of the distal tibia, above the level of the malleolus. The bones are demineralized. Old fracture deformity of the distal tibial shaft. No cellulitic or osteomyelitic changes are identified. No lytic or sclerotic lesions are identified. Joints: There is no significant joint space narrowing. Mild periarticular spurring. Soft Tissues: Lower extremity edema. IMPRESSION: Exam is limited by bony demineralization and increased image noise. Nondisplaced fracture through the posterior malleolus without visible separation at the articular surface. Nondisplaced fracture through the the medial tibial metaphysis. Nondisplaced fracture through the posterior talus. Labs 07/03/24 14:40 07/03/24 14:40 Labs: Laboratory Results - last 24 hr 07/03/24 07/03/24 14:40 18:22 WBC 6.15 RBC 4.47 Hgb 11.4 Hct 38.4 MCV 86 MCH 25.5 L MCHC 29.7 L RDW 13.6 Plt Count 390 MPV 8.4 Immature Gran % 0.5 Neutrophils % 72.2 Lymphocytes % 18.0 Monocytes % 5.9 Eosinophils % 3.1 Basophils % 0.3 Nucleated RBC % 0.0 Absolute Neutrophils 4.44 Absolute Lymphocytes 1.11 L Absolute Monocytes 0.36 Absolute Eosinophils 0.19 Absolute Basophils 0.02 Sodium 142 Potassium 4.2 Chloride 105 Carbon Dioxide 30.0 Anion Gap 7.0 BUN 11 Creatinine 0.5 L Est GFR (CKD-EPI 2020) 106.64 Glucose 104 Calcium 9.4 Total Bilirubin 0.28 AST 6 L ALT 14 Alkaline Phosphatase 145 H Total Protein 7.3 Albumin 3.4 Urine Color Yellow Urine Clarity Clear Urine pH 7.0 Ur Specific [place] 1.020 Urine Protein Negative Urine Ketones Negative Urine Blood Negative Urine Nitrite Positive H Urine Bilirubin Negative Urine Urobilinogen 0.2 Ur Leukocyte Esterase Trace H Urine RBC Negative Urine WBC 3-5 Ur Epithelial Cells Rare Urine Crystals Negative Urine Bacteria Moderate Urine Casts Negative Urine Mucus Negative Ur Culture Indicated? No Urine Glucose Negative Last Vital Signs Temp 36.6 C 07/03/24 13:08 Pulse 115 H 07/03/24 19:30 Resp 20 07/03/24 19:31 BP 170/101 H 07/03/24 19:30 Pulse Ox 99 07/03/24 19:00 Time Spent Time spent with Patient: >75 minutes Time was spent: preparing to see the patient(eg.review tests), obtaining and/or reviewing separately otained hiistory, ordering medications,tests, procedures, referring, communicating with other health healthcare receptionist, indepentently interpreting results, counseling the patient and care coordination cc: SHAHZAD OLIVAREZ MD Dictated by: BETO LEUNG Dictated: 07/03/24 Time: 2003 Patient was seen in consultation with orthopedic surgery who recommended transfer to higher level of care for subspecialty treatment. Patient was accepted into department for definitive treatment. The plan is to transfer the patient down to department. I will add that while she was here she was diagnosed with a UTI and started on Macrobid. I will add her sensitivities. RUN DATE: 07/07/24 [facility] PAGE 1 RUN TIME: [id number] RUN USER: [place] [address] Tiffany Lieberman MD,PhD PATIENT REPORT PATIENT: Chapis Cline LOC: U #: [id number] /SX: [id number] F ROOM: 212 RE07/03/[address]: BETO LEUNG STATUS: ADM INOo BED: A DIS: SPEC #: [id number] ELSI: 07/03/24 STATUS: COMP REQ #: [id number] RECD: 07/03/24-[address]: BETO LEUNG OT DR: Alonso Palmer MD,ALEX OLIVAREZ MD, SHAHZAD Tovar,InPatient FAX #: SOURCE:Urine SPECIMEN DESCRIPTION:Cath Villatoro Indwelling Procedure Result Verified Urine Culture Final 07/06/24-816 Day 1 Result ISOLATES BELOW ISOLATE 1 COLONY COUNT >100,000 COLONIES/ML ISOLATE 1 APPEARANCE Gram Negative Tr ISOLATE 1 ACTION ID AND SUSCEPTIBILITY TO FOLLOW Day 2 Result ISOLATES BELOW ISOLATE 1 COLONY COUNT >100,000 COLONIES/ML ISOLATE 1 APPEARANCE Gram Negative Tr Organism 1 CITROBACTER FREUNDII COLONY COUNT >100,000 COLONIES/ML Citr freu Result Cefazolin R Ceftazidime I CEFTRIAXONE I Ciprofloxacin S Gentamicin S Nitrofurantoin S Imipenem S Levofloxacin S Tobramycin S Trimethoprim/Sulfamethoxazole S Piperacillin/Tazobactam I Home Meds and New Rx's Prescriptions: No Action fenofibrate 54 mg tablet 54 mg PO DAILY Qty: 90 3RF simvastatin 20 mg tablet 20 mg PO DAILY Qty: 90 3RF Trelegy Ellipta 100-62.5-25 mcg blister with device 1 inh inhalation DAILY Qty: 28 11RF cholecalciferol (vitamin D3) 1,250 mcg (50,000 unit) capsule 1,250 mcg PO QWEEK Qty: 12 2RF Patient Comments: takes once a week on per patient lisinopril-hydrochlorothiazide 10-12.5 mg tablet 0.5 tab PO DAILY Qty: 45 3RF doxepin 100 mg capsule 200 mg PO QHS Qty: 180 3RF aripiprazole [Abilify] 20 mg tablet 40 mg PO DAILY Qty: 180 4RF furosemide 20 mg tablet 20 mg PO DAILY PRN (Reason: swelling) Qty: 30 3RF diclofenac sodium 75 mg tablet,delayed release (DR/EC) 75 mg PO BID PRN (Reason: back pain) Qty: 180 3RF fentanyl 100 mcg/hr patch 72 hour 1 patch transdermal Q48H MDD 1 patch Qty: 10 0RF fentanyl 12 mcg/hr patch 72 hour 1 patch transdermal Q48H MDD 1 patch Qty: 10 0RF gabapentin 600 mg tablet 900 mg PO TID Qty: 135 1RF Rx Instructions: dose increase 12/28/23 Lactobacillus acidoph-L.bulgar [Floranex] 1 million cell tablet 2 tab PO BID methocarbamol 500 mg tablet 500 mg PO QID tamsulosin 0.4 mg capsule 0.4 mg PO QHS loperamide [Anti-Diarrheal (loperamide)] 2 mg capsule 2 mg PO Q2H PRN Rx Instructions: administer after each loose stool until symptoms controlled; do not exceed 8 mg per 24 hrs oxycodone 10 mg tablet 10 mg PO TID MDD 3 tabs PRN (Reason: pain) Qty: 30 0RF nitrofurantoin macrocrystal 100 mg capsule 100 mg PO BID Qty: 9 0RF Rx Instructions: must administer with a meal/food acetaminophen 325 mg Tablet 650 mg PO Q4H PRN PRNQty: 90 0RF Discharge Instructions Activity:: per ortho Equipment/Supplies:: No Equipment Needed Diet:: As Tolerated Discharge Orders Discharge Orders: Discharge Order (Routine); Ordered 07/07/24 Ordered By: Rohith Loving DS: Summary Time Spent with Patient providing and/or coordinating discharge services: Greater than 30 minutes Status at Discharge Functional status at discharge: wheelchair bound Overall status at discharge: patient is not back to baseline Mental Status: mental status grossly normal Speech and Movement: speech and movement normal Mood: congruent mood Affect: normal affect Quality:SDOH Health Related Social Needs: No Data to Display Exam Narrative Exam Narrative: Constitutional: Alert and oriented x3. Appears stated age. Normal body habitus. Head: Normocephalic, no trauma. Eyes: Pupils PERRL, Red reflex noted, EOM's intact. Eyelids symmetrical without lesions, discharge, or swelling. Chest: RRR, Normal S1, S2, distal pulses intact. Resp: Lungs clear to auscultation bilaterally, no wheezes, rales, or rhonchi. Abdomen: Soft, non-distended, Normoactive bowel sounds all 4 quads. MS: Splint/cast placed on the right lower extremity Skin: No suspicious rashes or lesions. Capillary refill less than 2 sec. Neurologic: Cranial nerves II-XII intact. Alert and oriented x 3. Motor: No deficits noted. Sensory: Intact bilaterally all 4 extremities. Hematologic/Lymphatic: No ecchymosis, no lymphadenopathy. Psych Mental Status: mental status grossly normal Speech and Movement: speech and movement normal Mood: congruent mood Affect: normal affect DS: Data Vitals/I&O Vitals and I&O: Vital Signs Temperature 37.1 C 07/07/24 11:04 Temperature Source Temporal Artery Scan 07/07/24 11:04 Pulse 85 11/19/24 11:04 Pulse Rhythm Regular 07/03/24 21:30 Pulse 111 H 07/03/24 20:30 Respiratory Rate 18 07/07/24 11:04 Respiratory Effort Normal, Non-Labored 07/03/24 21:30 Respiratory Depth Normal 07/03/24 21:30 Respiratory Pattern Normal 07/03/24 21:30 Blood Pressure 124/47 L 07/07/24 11:04 Blood Pressure Mean 79 07/03/24 20:16 Blood Pressure Position Supine 07/03/24 13:08 Pulse Oximetry 97 07/07/24 11:04 Respiratory End-tidal CO2 32 07/03/24 15:40 Oxygen Delivery Method Room Air 07/07/24 11:04 Oxygen Flow Rate 0 07/07/24 11:04 Pain Level 5 07/07/24 11:04 Comment RN in room when BP taken 07/07/24 11:04 Comment ED provider aware of persistent tachycardia 07/03/24 16:25 Intake & Output 07/06/24 07/06/24 07/07/24 11:59 23:59 11:59 Intake Total 360 / 830 470 / 830 250 / 250 Output Total 750 / 750 500 / 500 Balance -390 / 80 470 / 80 -250 / -250 Intake: Oral 360 / 830 470 / 830 250 / 250 Output: Urine 750 / 750 500 / 500 Other: Urine Color Light [place] Yellow Yellow Urine Appearance Clear Clear Clear Urine Odor None Comment BSC X1 Stool Size Large Stool Characteristics Formed Brown PFSH All Active Problems (Updated 07/04/24 @ 06:56 by Beto Leung) UTI (urinary tract infection) (Acute) Fracture of right tibia (Acute) Displaced trimalleolar fracture of right ankle (Acute) Fracture of right talus (Acute) Pathological fracture of ankle (Acute) Fracture of posterior malleolus of right tibia (Acute) Right leg weakness (Acute) Frequent falls (Acute) Traumatic hematoma of right shoulder (Acute 03/25/24) Bilateral cellulitis of lower leg (Acute ~02/2024) Osteoporosis (Chronic) Microcytic anemia (Chronic) Chronic right-sided lumbar radiculopathy (Chronic) Tinea pedis (Acute) Ambulatory dysfunction (Acute) Multiple falls (Acute) Prediabetes (Acute) Cellulitis (Acute) Lumbar spinal stenosis (Chronic) Hip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
[2024-07-07 15:07] VITALS: BP 141/77; PULSE 83; RESP 16; TEMP 37.2; O2SAT 98
--- NOTE | 2024-07-07 16:01 | NT_ITS ---
PT Notes Visit Reasons: trimalleolar fracture right ankle, UTI, Morbid Obe Hold PT services as of today. Patient to transfer to [facility] for definitive orthopedic surgical procedure. Will plan to re-evaluate post-op as appropriate.
--- NOTE | 2024-07-07 16:01 | PT.INNT ---
PT Notes Visit Reasons: trimalleolar fracture right ankle, UTI, Morbid Obe Hold PT services as of today. Patient to transfer to [facility] [place] for definitive orthopedic surgical procedure. Will plan to re-evaluate post-op as appropriate.
--- NOTE | 2024-07-07 16:32 | CHAPLAIN ---
This morning when I visited Maryjane, she was waiting to be transferred to [facility] for surgery. I brought her a purple prayer shawl. It turned out to be her favorite color. I left when nursing came in to assist her to the commode. She was still at [facility] at 4 p.m.
[2024-07-07 19:37] VITALS: BP 146/65; PULSE 96; RESP 18; TEMP 36.2; O2SAT 95
[2024-07-07] MEDS: Tamsulosin 0.4 MG CAPCR PO (20:57)
[2024-07-07] MEDS: Doxepin 50 MG CAP 200 MG PO (20:57)
[2024-07-07] MEDS: Simvastatin 20 MG TAB PO (20:57)
== END 2024-07-07 22:10 | disposition short-term general hospital (02) ==
LOC: ER 21:26 → MS 21:28
PROVIDERS: Hospitalist; Registered Nurse Emergency; Admitting Provider Family Medicine; Emergency Provider Physician Assistant; PCP Family Medicine; Visit Provider Family Medicine
DX: M80.071A Age-related osteoporosis with current pathological fracture, right ankle and foot, initial encounter for fracture (principal); S82.851A Displaced trimalleolar fracture of right lower leg, initial encounter for closed fracture; N30.00 Acute cystitis without hematuria; E66.01 Morbid (severe) obesity due to excess calories; Z68.34 Body mass index [BMI] 34.0-34.9, adult; J41.0 Simple chronic bronchitis; F17.210 Nicotine dependence, cigarettes, uncomplicated; I10 Essential (primary) hypertension; F33.1 Major depressive disorder, recurrent, moderate; M54.16 Radiculopathy, lumbar region; I87.2 Venous insufficiency (chronic) (peripheral); G89.29 Other chronic pain; Z79.891 Long term (current) use of opiate analgesic; M54.42 Lumbago with sciatica, left side; M54.41 Lumbago with sciatica, right side; W19.XXXA Unspecified fall, initial encounter; Z96.651 Presence of right artificial knee joint
CPT/HCPCS: 27762; 00123; 36415; 51702; 80053; 85027; 87077; 87635; 94640; 96374; 96375; 96376; 97163; 97530; 99156; 99223; 99285; 73590; 73610; 73700; 81003; 81015; 83735; 85025; 87086; 87186; 94664; 99231; 99232; 99239; G0378; J1171; J1644; J1885; J2704

== ENCOUNTER 2024-12-05 14:16 | Emergency (ER) | payer MEDICARE, SELFPAY ==
[2024-12-05 14:18] VITALS: BP 187/72; PULSE 103; RESP 18; O2SAT 96
--- NOTE | 2024-12-05 14:30 | DI.RAD_ITS ---
Exam(s) XR LUMBAR SPINE COMPLETE EXAM: XR LUMBAR SPINE COMPLETE CLINICAL HISTORY: Back pain. TECHNIQUE: 2D digital imaging was performed. COMPARISON: CR XR DEXA BONE DENSITY W/WO NEO from 11/29/[address] THORACIC LUMBAR SPINE WO from 05/01/2024 MR MR LUMBAR SPINE WO/W from 05/01/2024 DX XR ANKLE MIN 3 VIEWS RIGHT (GENERIC) from 08/03/2024 FINDINGS: Five views. Lateral views were performed cross-table. Again noted is posterior fusion rods and intrapedicular screws at L5-S1 level as well as an intervert ebral disc space device at this level. This patient also has a right hip prosthesis. There is a significant scoliosis convex right and this is related to significant height loss at super ior endplate level on the left side of the L3 vertebral body. There is also again noted right latera l subluxation of L3 upon L4, similar to the CT scan of 05/01/2024 and vacuum phenomenon is seen withi n the left side of the L 3-4 disc space, similar to previous as well as within L4-5 level. Sacroiliac joints appear unremarkable. IMPRESSION: Findings as above, similar to CT scan of 05/01/2024. DATA REPOSITORY: RADIATION DOSE DELIVERED:
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
[2024-12-05] MEDS: MORPHine IR 15 MG TAB PO (14:52)
[2024-12-05] MEDS: oxyCODONE 5 MG TAB PO (16:24)
[2024-12-05] MEDS: Lidocaine 5% Patch 1 PATCH TP (16:29)
== END 2024-12-05 16:31 | disposition home or self-care (01) ==
LOC: ER 16:29
PROVIDERS: Emergency Provider Registered Nurse Emergency; PCP Family Medicine
DX: M54.16 Radiculopathy, lumbar region (principal); M25.551 Pain in right hip; I10 Essential (primary) hypertension; E11.9 Type 2 diabetes mellitus without complications; J44.9 Chronic obstructive pulmonary disease, unspecified; F17.210 Nicotine dependence, cigarettes, uncomplicated; Z96.641 Presence of right artificial hip joint
CPT/HCPCS: 99283; 72110

== ENCOUNTER 2025-01-13 23:07 | Inpatient (IN) | payer MEDICARE, SELFPAY ==
[2025-01-13] VITALS (15 sets, daily range): BP systolic 117–186; BP diastolic 55–116; PULSE 69–140; RESP 14–26; TEMP 36.3; O2SAT 97–99
--- NOTE | 2025-01-13 23:00 | RT.EKG_ITS ---
APPROVED REPORT Exam: Resting ECG Reason for Exam: overdose Patient Location: E HR:125 bpm ECG Measurements Heart Rate 125 AXIS MS [id number] P [id number] QRSd 92 QRS 50 QT 296 T 222 QTc 409 Conclusion Atrial flutter/fibrillation...A-rate 246, multiple Ps Probable LVH with secondary repol abnrm...multiple LVH criteria Afib/Aflutter with diffuse ST depression likely rate related not ischemia Normal [place]/Interval LVH
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
[2025-01-13 23:37] LABS: BE (Venous) 0 mmol/L (-2-3); HCO3 (Venous) 26 mmol/L (23-28); O2 Sat (Venous) 55 %; TCO2 (Venous) 24 mmol/L (24-29); pCO2 (Venous) 52 mmHg (41-51); pH (Venous) 7.31 (7.31-7.41); pO2 (Venous) 34 mmHg
[2025-01-13 23:39] LABS: Abs Immature Grans 0.08 10^3/uL (0.0-0.06); Absolute Basophil Count 0.09 10^3/uL (0.0-0.2); Absolute Eosinophil Count 0.51 10^3/uL (0.0-0.7); Absolute Monocyte Count 0.59 10^3/uL (0.1-0.8); Absolute Neutrophil Count 10.04 10^3/uL (1.2-6.7); Basophils % 0.7 %; Eosinophils % 3.9 %; HCT 40.9 % (36.0-46.0); HGB 12.1 g/dL (11.2-15.7); Immature Grans % 0.6 %; Lymphocytes % 13.7 %; MCH 25.2 pg (27.0-33.0); MCHC 29.6 % (32.0-36.0); MCV 85 fL (80-95); MPV 9.2 fL (8.0-11.0); Monocytes % 4.5 %; Neutrophils % 76.6 %; Platelet Count 631 10^3/uL (130-400); RBC 4.81 10^6/uL (3.93-5.22); RDW 14.3 % (11.7-14.6); RDW-SD 44.4 fL; WBC 13.11 10^3/uL (4.4-10.8)
[2025-01-13] MEDS: Normal Saline 1,000 ML 1000 ML IV (23:42)
[2025-01-13] MEDS: dilTIAZem 25 MG/5 ML VIAL 15 MG IVP (23:46)
[2025-01-13 23:58] LABS: ALT 21 U/L (14-59); AST 21 U/L (15-37); Albumin 4.4 g/dL (3.4-5.0); Alkaline Phosphatase 111 U/L (46-116); Anion Gap 10.8 mmol/L (3-11); BUN 23 mg/dL (7-18); Bilirubin, Total 0.3 mg/dL (0.2-1.0); CO2 27.2 mmol/L (21.0-32.0); CREATININE 0.9 mg/dL (0.55-1.02); Calcium 10.8 mg/dL (8.5-10.1); Chloride 94 mmol/L (98-107); Estimated GFR 72.28 (mL/min/1.73m2); Glucose 145 mg/dL (74-106); Magnesium 2.1 mg/dL (1.8-2.4); Potassium 3.4 mmol/L (3.5-5.1); Sodium 132 mmol/L (136-145); Troponin I 9 ng/L (<or=51)
[2025-01-13 23:59] LABS: ETHANOL BLOOD < 3.0 mg/dL (<10)
[2025-01-14] VITALS (38 sets, daily range): BP systolic 89–169; BP diastolic 38–95; PULSE 69–131; RESP 11–23; TEMP 36.3–36.8; O2SAT 94–100
[2025-01-14 00:02] LABS: Salicylate < 2.8 mg/dL (<2.8)
[2025-01-14 00:03] LABS: Acetaminophen < 2 ug/mL (10-30)
[2025-01-14 00:16] LABS: Bilirubin Negative (Negative); Blood Negative (Negative); Clarity Clear (Clear); Glucose Negative (Negative); Ketones Negative (Negative); Leukocyte Esterase Negative (Negative); Nitrite Negative (Negative); Specific Gravity 1.015 (1.005-1.025); Urobilinogen 0.2 mg/dL (Up to 0.2); pH 5.5 (5-8)
[2025-01-14 00:24] LABS: Prothrombin Time 9.9 sec (9.1-11.1)
[2025-01-14 00:25] LABS: Ammonia 12 umol/L (11-32)
[2025-01-14] MEDS: dilTIAZem 25 MG/5 ML VIAL 10 MG IVP (00:29)
[2025-01-14] MEDS: dilTIAZem 30 MG TAB PO (00:29)
[2025-01-14 00:32] LABS: Troponin I 9 ng/L (<or=51)
[2025-01-14 00:35] LABS: *AMPHETAMINES SCREEN URINE Negative (Negative); *BARBITURATES SCREEN URINE Negative (Negative); *BENZODIAZEPINES SCREEN URINE Negative (Negative); Cannabinoids THC Negative (Negative); Cocaine Screen,Urine Negative (Negative); METHADONE URINE SCREEN Positive (Negative); OPIATES URINE SCREEN Positive (Negative)
[2025-01-14 00:38] LABS: Tricyclic Antidepressants Positive (Negative)
--- NOTE | 2025-01-14 00:44 | DI.CT_ITS ---
Exam(s) CT HEAD WO EXAM: CT HEAD WO CLINICAL HISTORY: altered mental status. TECHNIQUE: Imaging Protocol: Axial computed tomography images with coronal and sagittal reformatted images were created and reviewed COMPARISON: No exams were available for comparison FINDINGS: There are no skull fractures. There is no fluid in the visualized paranasal sinuses. There is no evidence of intracranial hemorrhage, mass effect, or shift of midline structures. There are no extra-axial fluid collections. The ventricles are not enlarged or shifted and there is no blo od within the ventricular system nor within the basal cisterns. There is symmetrical atrophy of the frontal lobes as well as the anterior aspect of both temporal lob es. IMPRESSION: Findings are consistent with fronto-temporal atrophy. Virtual Radiology report reviewed Final report called by myself to ER provider 01/14/2025 8:03 a.m. RADIATION DOSE DELIVERED: 888.21mGy.cm Total DLP DATA REPOSITORY: All CT scans at this facility are submitted to the National Radiology Data Registry (NRDR) Dose Index Registry (DIR) with the [employer] (ACR). RADIATION OPTIMIZATION: All CT scans at this facility use at least one of these dose optimization te chniques: automated exposure control; mA and/or kV adjustment per patient size (includes targeted exa ms where dose is matched to clinical indication); or iterative reconstruction.
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
--- NOTE | 2025-01-14 02:13 | W.PC.ACHO ---
Registration Status: Primary Language: Preferred Language: ED Information & Data Chief Complaint AMS/LOC 01/13/25 23:35 Triage Note low o2 sats and snoring resp 01/13/25 23:07 on scene. 2mg of narcan given on scene with some affect. arrives axo maintaining patent airway. endorsing pain in lower legs . pt on opioid contract calling out for Mom frequently Medical / Surgical History (Last Reviewed 01/14/25 @ 00:14 by Rohith Smith MD) Gastric ulcer (08/18/05) Depression (07/18/05) Gastroparesis (07/18/05) Morbid obesity Chronic right-sided lumbar radiculopathy Osteoporosis Type 2 diabetes mellitus Essential hypertension History of fractured rib COPD (chronic obstructive pulmonary disease) (Last Reviewed 01/14/25 @ 00:14 by Rohith Smith MD) History of ankle surgery History of back surgery (10/17/17) ULCER/STOMACH SURGERY Replacement of total knee joint (04/17/17) Total replacement of hip KNEE SURGERY EGD - MAC Cholecystectomy (~06/2013) Most Recent Vital Signs Temperature 36.3 C L 01/13/25 23:07 Pulse 109 H 01/14/25 00:29 Pulse 140 H 01/13/25 23:20 Respiratory Rate 26 H 01/13/25 23:20 Respiratory Effort Non-Labored 01/13/25 23:16 Respiratory Depth Normal 01/13/25 23:16 Respiratory Pattern Normal 01/13/25 23:16 Blood Pressure 157/88 H 01/14/25 00:29 Blood Pressure Mean 124 01/13/25 23:09 Blood Pressure Position Sitting 01/13/25 23:07 Pulse Oximetry 98 01/13/25 23:09 Oxygen Delivery Method Room Air 01/13/25 23:07 Oxygen Flow Rate 0 01/13/25 23:07 Pain Level 10 01/13/25 23:07 Allergies No Known Drug Allergies Allergy (Unknown, Verified 01/13/25 23:13) none Precautions Isolation Standard precaution 01/13/25 23:15 IV IV Catheter Type [Left Wrist] Diffusics IV Catheter Gauge [Left Wrist] 20 Diagnostics 01/14/25 01/14/25 01/13/25 Range/Units 02:31 00:05 23:58 WBC (4.4-10.8) 10^3/uL RBC (3.93-5.22) 10^6/uL Hgb (11.2-15.7) g/dL Hct (36.0-46.0) % MCV (80-95) fL MCH (27.0-33.0) pg MCHC (32.0-36.0) % RDW (11.7-14.6) % Plt Count (130-400) 10^3/uL MPV (8.0-11.0) fL Immature Gran % % Neutrophils % % Lymphocytes % % Monocytes % % Eosinophils % % Basophils % % Nucleated RBC % (0.0-0.3) % Absolute Neutrophils (1.2-6.7) 10^3/uL Absolute Lymphocytes (1.2-3.4) 10^3/uL Absolute Monocytes (0.1-0.8) 10^3/uL Absolute Eosinophils (0.0-0.7) 10^3/uL Absolute Basophils (0.0-0.2) 10^3/uL PT 9.9 INR 1.0 VBG pH (7.31-7.41) VBG pCO2 (41-51) mmHg VBG pO2 mmHg VBG HCO3 (23-28) mmol/L VBG Total CO2 (24-29) mmol/L VBG O2 Saturation % VBG Base Excess (-2-3) mmol/L Sodium (136-145) mmol/L Potassium (3.5-5.1) mmol/L Chloride (98-107) mmol/L Carbon Dioxide (21.0-32.0) mmol/L Anion Gap (3-11) mmol/L BUN (7-18) mg/dL Creatinine (0.55-1.02) mg/dL Est GFR (CKD-EPI 2020) (mL/min/1.73m2) Glucose (74-106) mg/dL Calcium (8.5-10.1) mg/dL Magnesium (1.8-2.4) mg/dL Total Bilirubin (0.2-1.0) mg/dL AST (15-37) U/L ALT (14-59) U/L Alkaline Phosphatase (46-116) U/L Ammonia 12 Troponin I Cancelled 9 (<or=51) ng/L Total Protein (6.4-8.2) g/dL Albumin (3.4-5.0) g/dL Urine Color Yellow (Yellow) Urine Clarity Clear (Clear) Urine pH 5.5 (5-8) Ur Specific Clyde 1.015 (1.005-1.025) Urine Protein Negative (Neg-Trace) mg/dL Urine Ketones Negative (Negative) mg/dL Urine Blood Negative (Negative) Urine Nitrite Negative (Negative) Urine Bilirubin Negative (Negative) Urine Urobilinogen 0.2 (Up to 0.2) mg/dL Ur Leukocyte Esterase Negative (Negative) Urine Glucose Negative (Negative) mg/dL Salicylates (<2.8) mg/dL Urine Opiates Screen Positive A (Negative) Urine Methadone Screen Positive A (Negative) Acetaminophen (10-30) ug/mL Ur Barbiturates Screen Negative (Negative) Ur Tricyclics Screen Positive A (Negative) Ur Amphetamines Screen Negative (Negative) U Benzodiazepines Scrn Negative (Negative) Urine Cocaine Screen Negative (Negative) Ur THC Screen Negative (Negative) Ethyl Alcohol (<10) mg/dL 01/13/25 01/13/25 Range/Units 23:40 23:19 WBC 13.11 H (4.4-10.8) 10^3/uL RBC 4.81 (3.93-5.22) 10^6/uL Hgb 12.1 (11.2-15.7) g/dL Hct 40.9 (36.0-46.0) % MCV 85 (80-95) fL MCH 25.2 L (27.0-33.0) pg MCHC 29.6 L (32.0-36.0) % RDW 14.3 (11.7-14.6) % Plt Count 631 H (130-400) 10^3/uL MPV 9.2 (8.0-11.0) fL Immature Gran % 0.6 % Neutrophils % 76.6 % Lymphocytes % 13.7 % Monocytes % 4.5 % Eosinophils % 3.9 % Basophils % 0.7 % Nucleated RBC % 0.0 (0.0-0.3) % Absolute Neutrophils 10.04 H (1.2-6.7) 10^3/uL Absolute Lymphocytes 1.80 (1.2-3.4) 10^3/uL Absolute Monocytes 0.59 (0.1-0.8) 10^3/uL Absolute Eosinophils 0.51 (0.0-0.7) 10^3/uL Absolute Basophils 0.09 (0.0-0.2) 10^3/uL PT Cancelled INR Cancelled VBG pH 7.31 (7.31-7.41) VBG pCO2 52 H (41-51) mmHg VBG pO2 34 mmHg VBG HCO3 26 (23-28) mmol/L VBG Total CO2 24 (24-29) mmol/L VBG O2 Saturation 55 % VBG Base Excess 0 (-2-3) mmol/L Sodium 132 L (136-145) mmol/L Potassium 3.4 L (3.5-5.1) mmol/L Chloride 94 L (98-107) mmol/L Carbon Dioxide 27.2 (21.0-32.0) mmol/L Anion Gap 10.8 (3-11) mmol/L BUN 23 H (7-18) mg/dL Creatinine 0.9 (0.55-1.02) mg/dL Est GFR (CKD-EPI 2020) 72.28 (mL/min/1.73m2) Glucose 145 H (74-106) mg/dL Calcium 10.8 H (8.5-10.1) mg/dL Magnesium 2.1 (1.8-2.4) mg/dL Total Bilirubin 0.3 (0.2-1.0) mg/dL AST 21 (15-37) U/L ALT 21 (14-59) U/L Alkaline Phosphatase 111 (46-116) U/L Ammonia Cancelled Troponin I 9 (<or=51) ng/L Total Protein 9.0 H (6.4-8.2) g/dL Albumin 4.4 (3.4-5.0) g/dL Urine Color (Yellow) Urine Clarity (Clear) Urine pH (5-8) Ur Specific Clyde (1.005-1.025) Urine Protein (Neg-Trace) mg/dL Urine Ketones (Negative) mg/dL Urine Blood (Negative) Urine Nitrite (Negative) Urine Bilirubin (Negative) Urine Urobilinogen (Up to 0.2) mg/dL Ur Leukocyte Esterase (Negative) Urine Glucose (Negative) mg/dL Salicylates < 2.8 (<2.8) mg/dL Urine Opiates Screen (Negative) Urine Methadone Screen (Negative) Acetaminophen < 2 (10-30) ug/mL Ur Barbiturates Screen (Negative) Ur Tricyclics Screen (Negative) Ur Amphetamines Screen (Negative) U Benzodiazepines Scrn (Negative) Urine Cocaine Screen (Negative) Ur THC Screen (Negative) Ethyl Alcohol < 3.0 (<10) mg/dL Intake and Output - 24 Hour Total 01/13/25 22:56 thru 01/14/25 00:09 Weight 98.4 kg Other: Urine Color Pale Urine Appearance Clear Falls Risk Assessment History of Falls Previous History 01/13/25 23:14 Contributing Factors Confusion,Impairments 01/13/25 23:14 Ambulatory Aids Uses ambulatory device 01/13/25 23:14 Tubes/Lines W/no contributing factors 01/13/25 23:14 Cognition Cognitive impairment 01/13/25 23:14 Fall Total Score 61 01/13/25 23:14 Level of Risk High Risk 01/13/25 23:14 v v v v v v v v v Sending and/or Receiving Nurses: Please use comment section below to note any information pertinent to the patient hand-off not included above. Information / Comments: No further questions. Report received from: GILLES, RN
[2025-01-14] MEDS: Normal Saline Flush 10 ML SYR IVP ×3 (03:13→20:54)
[2025-01-14] MEDS: Acetaminophen 325 MG TAB 650 MG PO ×2 (03:40→10:53)
[2025-01-14 06:41] LABS: HCT 31.5 % (36.0-46.0); HGB 9.6 g/dL (11.2-15.7); MCH 25.7 pg (27.0-33.0); MCHC 30.5 % (32.0-36.0); MCV 84 fL (80-95); MPV 9.1 fL (8.0-11.0); Platelet Count 525 10^3/uL (130-400); RBC 3.74 10^6/uL (3.93-5.22); RDW 14.4 % (11.7-14.6); WBC 9.02 10^3/uL (4.4-10.8)
[2025-01-14 07:07] LABS: ALT 18 U/L (14-59); AST 17 U/L (15-37); Alkaline Phosphatase 79 U/L (46-116); Anion Gap 8.3 mmol/L (3-11); BUN 17 mg/dL (7-18); Bilirubin, Total 0.3 mg/dL (0.2-1.0); CO2 28.7 mmol/L (21.0-32.0); CREATININE 0.5 mg/dL (0.55-1.02); Calcium 9.5 mg/dL (8.5-10.1); Chloride 101 mmol/L (98-107); Estimated GFR 105.98 (mL/min/1.73m2); Glucose 104 mg/dL (74-106); Potassium 3.8 mmol/L (3.5-5.1); Sodium 138 mmol/L (136-145); Total Protein 6.4 g/dL (6.4-8.2)
--- NOTE | 2025-01-14 08:00 | DI.US_ITS ---
APPROVED REPORT EXAM: Comprehensive 2D, Doppler, and color-flow Echocardiogram Patient Location: In-Patient Room/Bed: 227 Safety Physician: Marycarmen Kulkarni RDCS (AE) Indications: New onset atrial fibrillation with RVR Other Information Study Quality: Fair. Technically limited study due to body habitus, exam done supine. Conclusion Mild concentric left ventricular hypertrophy. Ejection fraction is 60%. Wall motion is normal Normal right ventricular size and function Left atrium is mildly enlarged. Normal right atrial size Aortic valve is mildly sclerotic and trileaflet without stenosis or regurgitation Mild mitral annular calcification. Trace mitral regurgitation Patient was in sinus rhythm throughout the study Wall motion Left Ventricle The left ventricle is normal size. The left ventricular systolic function is normal. The left ventric ular ejection fraction is within the normal range. Mild concentric left ventricular hypertrophy. Ther e is normal LV segmental wall motion. There is no ventricular septal defect visualized. LVEF is 60%. Right Ventricle The right ventricle is normal size. The right ventricular systolic function is normal. Atria Left atrium is mildly dilated. The right atrium size is normal. The interatrial septum is intact with no evidence for an atrial septal defect. Aortic Valve The Aortic valve is mildly sclerotic. Aortic valve is trileaflet. There is no aortic valvular stenosi s. No aortic regurgitation is present. Mitral Valve Mild mitral annular calcification. No evidence of mitral valve stenosis. Trace mitral regurgitation. Tricuspid Valve The tricuspid valve is normal in structure. There is no tricuspid valve stenosis. Trace tricuspid reg urgitation. Unable to assess PA pressure. Pulmonic Valve The pulmonary valve is normal in structure. There is no pulmonic valvular stenosis. There is no pulmo maximiliano valvular regurgitation. Great Vessels The aortic root is normal in size. The ascending aorta is normal in size. Aortic arch is normal in ca liber. IVC is normal in size and collapses >50% with inspiration. Pericardium There is no pericardial effusion. 2D Dimensions IVSD d PLAX 1.23 cm F: 0.6-1.0 Ao Root d 3.13 cm F: 2.7 - 3.3 LVPW d PLAX 1.21 cm F: 0.6 - 1.0 Ao Asc Diam d 3.31 cm F: 2.3 - 3.1 LVID d PLAX 4.40 cm F: 3.8 - 5.2 LVDs 2.99 cm F: 2.2 - 3.5 LV EF Teichholz 59.6 % FS 31.49 % LV EDV (Teich) 86.2 mL LV ESV (Teich) 34.8 mL M-Mode TAPSE 2.42 cm (M/F) >1.7 Auto EF LV EDV A4C 127.2 mL LV EDV A2C 114.6 mL LV EDV BP 120.8 mL LV ESV A4C 46.3 mL LV ESV A2C 44.6 mL LV ESV BP 45.2 mL LVEF(%) A4C 63.6 % LVEF(%) A2C 61.1 % LVEF(%) BP 62.5 % LV SV A4C 80.8 ml LV SV A2C 70.0 ml LV SV BP 75.5 ml LV CO A4C 6.3 L/min LV CO A2C 5.4 L/min LV CO BP 5.8 L/min HR A4C 78.26 BPM HR A2C 76.73 BPM LV EDV Index (BP) LA Volume LA Length A4C 6.5 cm LA Length A2C 6.5 cm LA Area A4C s 21.48 cm2 LA Area A2C s 25.69 cm2 LA Vol A4C A-L 60.00 mL LA Vol A2C A-L 86.34 mL LA Vol Biplane A-L 72.2 mL LA Vol/BSA A4C A-L LA Vol/BSA A2C A-L LA Vol/BSA BP A-L 35.7 mL/m2 LA Vol A4C MOD 56.6 mL LA Vol A2C MOD 82.4 mL LA Vol BP MOD 68.5 mL RA Volume RA Area A4C 14.2 cm2 RA ESV A4C (A-L) 37.3mL RA Vol/BSA A4C A-L RA Length A4C 4.6 cm RA ESV A4C (MOD) 35.6mL LV Diastology MV E' medial 0.071 (>0.07 m/s) MV E Vmax 0.80 (0.4-1.3 m/s) MV E/E' MED 11.19 (<14) MV A Vmax 0.80 (0.4-1.3 m/s) MV E' lateral 0.123 (>0.1 m/s) E/A Ratio 1.0 MV E/E' LAT 6.48 (<14) MV E' Average 0.097 m/s MV E/E'(average) 8.21 Aortic Valve AoV Vmax 1.85 m/s LVOT Vmax 1.40 m/s AoV Peak Grad 13.7 mmHg LVOT Peak Grad 7.8 mmHg AoV Area (Vmax) 2.30 cm2 LVOT VTI 0.253 m AoV VTI 0.341 m LVOT Mean Grad 4.3 mmHg AoV Mean Jorge. 1.25 m/s LVOT SV 77.36 mL AoV Mean Grad 7.2 mmHg LVOT Diam s 1.95 cm AoV Area (VTI) 2.27 cm2 AV Regurg Peak Gr. 13.74 mmHg Velocity Ratio 0.76 Mitral Valve MV DT 221 (160-240 msec) MV Vmax TIPS 0.75 m/s MV Mean Grad 1.2 (<2mmHg) MV VTI 0.292 m Pulmonary Valve PV Vmax 1.33 (0.5-1.5 m/s) RVOT Vmax 0.93 m/s PV Peak Grad 7.1 mmHg RVOT Peak Gr. 3.5 mmHg PV Mean Jorge 0.88 m/s RVOT VTI 0.176 m PV Mean Grad 3.6 mmHg RVOT Mean Gr. 1.9 mmHg Tricuspid Valve RA Pressure 3.00 mmHg TV S' 0.16 m/s
[2025-01-14] MEDS: Simvastatin 20 MG TAB PO (08:52)
[2025-01-14] MEDS: Sulfameth/Trimeth DS TAB 1 TAB PO ×2 (08:52→20:52)
[2025-01-14] MEDS: Enoxaparin 40 MG/0.4 ML SYR SC (08:52)
[2025-01-14] MEDS: Lidocaine 5% Patch 1 PATCH TP (08:52)
[2025-01-14] MEDS: hydroCHLOROthiazide 12.5 MG TAB 6.25 MG PO (08:53)
[2025-01-14] MEDS: Fenofibrate, Micronized 48 MG TAB PO (08:53)
[2025-01-14] MEDS: DULoxetine 30 MG CAP 60 MG PO (08:53)
[2025-01-14] MEDS: dilTIAZem 30 MG TAB 60 MG PO (08:53)
[2025-01-14] MEDS: Lisinopril 5 MG TAB PO (08:53)
[2025-01-14] MEDS: Gabapentin 400 MG CAP 800 MG PO ×4 (08:54→20:52)
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
--- NOTE | 2025-01-14 10:15 | W.PM.PROGNOT ---
Date of Service Date of service: 01/14/25 Time of Service: 12:33 Assessment and Plan Assessment and plan (1) New onset a-fib: Start date: 01/14/25 Status: Acute Assessment and plan: New onset atrial fibrillation discovered in the ED with evaluation and she responded to IV diltiazem and then placed on oral diltiazem with good rate control. Echocardiogram conclusion: Mild concentric left ventricular hypertrophy. Ejection fraction is 60%. Wall motion is normal Normal right ventricular size and function Left atrium is mildly enlarged. Normal right atrial size Aortic valve is mildly sclerotic and trileaflet without stenosis or regurgitation Mild mitral annular calcification. Trace mitral regurgitation Patient was in sinus rhythm throughout the study Continue oral diltiazem at 60 mg every 8 hours then transition to Diltiazem CD PO in AM with patient hypertensive upon admission. Lovenox for DVT prophylaxis for now. Might not be a good candidate for long-term anticoagulation because of debilitated state and risk for falls. Might miss use for pain management and have periods of oversedation- took her methadone only one hour early. Not interested in suboxone She is chronically on antihypertensives which will be continued as well. Cardiac consultation as needed. RN for Rx management and HH PT (2) Altered mental status: Start date: 01/14/25 Status: Acute Assessment and plan: Patient is chronically on narcotics and may be missed taking her narcotics with review of VPMS and recent change to methadone as well as having empty bottles brought in from home with a 14-day prescriptions appearing to disappear within 5 days. Urine drug screen pending Review for illicit drug use and misuse of present drugs. Long-term she be evaluated for increased supervision of her pain management at home or in supervised living. The patient continues to be sedated having been given Narcan in the field with minimal response but slight agitation when appearing in the ED. Resolved when seen- mentioning taking her methadone only one hour early (3) Sedative, hypnotic or anxiolytic abuse: Status: Chronic Assessment and plan: Patient has history of misuse and there is a chance of misuse presently. Further evaluate with history once patient awakens, urine drug screens with confirmations and Consultation with PCP before discharge- contacted pending return Usual narcotics will be held except for as needed oxycodone as the patient is alert. At risk for narcotic withdrawal as well. She is high risk for misuse because of her psychiatric disease and chronic, inoperable musculoskeletal pain issues, concomitant psychiatric disease and deconditioning with obesity. (4) Cellulitis of right leg: Start date: 01/13/25 Status: Acute Assessment and plan: Ongoing -Patient started on Bactrim DS which will be continued while hospitalized. She has chronic stasis edema with skin changes/ulcers from her obesity and immobility and spinal stenosis with her right leg not moving well. She often lifts her right leg with her hands which causes of bruising on the right leg. She states she did not fall. (5) Lumbar spinal stenosis: Status: Chronic Assessment and plan: This appears to be an inoperable problem and patient is deconditioned and obese making this problem worse. Poor prognosis for change. Mentioned spinal abscess and Sx at [facility] by Dr. Quiroz and ongoing rehabilitation CODE STATUS should be reviewed ongoingly with patient having poor prognosis. (6) Bilateral leg edema: Status: Chronic Assessment and plan: Chronic with skin changes and most likely secondary to venous stasis as well as obesity, venous ulcers to RLE . Compression stockings as tolerated, but not on sores (7) Type 2 diabetes mellitus: Assessment and plan: glucometers before meals and at bedtime and cover with sensitive insulin sliding scale while hospitalized. (8) Essential hypertension: Assessment and plan: Continue outpatient medical therapy adjusting as needed with the patient now on Cardizem for new onset atrial fibrillation rate controlled. (9) Anxiety: Status: Chronic Assessment and plan: continue home meds This also puts her at risk for misuse of sedating drugs. (10) Depression: Assessment and plan: continue home meds and as above (11) Tobacco use disorder: Status: Chronic Assessment and plan: PRN NRT discussed with Dr. Alvares Subjective Subjective Patient reports: no new complaints, feels better, tolerating liquids well, tolerating a regular diet, voiding w/o difficulty, flatus, bowel movement and afebrile; denies diarrhea, blood in stool, nausea, vomiting or shortness of breath Exam Narrative Exam Narrative: Alert and oriented X3, no acute distress, clear lungs to auscultation bilaterally, S1, S2, no murmur on tele -SR, ABD in non-distended, soft , non tender, no CVA tenderness, RLE weakness- chronic, poor insight Objective Last Vital Signs Temp 36.3 C L 01/14/25 07:17 Pulse 95 H 05/29/25 07:17 Resp 16 01/14/25 07:17 BP 108/74 01/14/25 07:17 Pulse Ox 97 01/14/25 07:17 Laboratory Results - last 24 hr 01/13/25 01/13/25 01/13/25 23:19 23:40 23:58 WBC 13.11 H RBC 4.81 Hgb 12.1 Hct 40.9 MCV 85 MCH 25.2 L MCHC 29.6 L RDW 14.3 Plt Count 631 H MPV 9.2 Immature Gran % 0.6 Neutrophils % 76.6 Lymphocytes % 13.7 Monocytes % 4.5 Eosinophils % 3.9 Basophils % 0.7 Nucleated RBC % 0.0 Absolute Neutrophils 10.04 H Absolute Lymphocytes 1.80 Absolute Monocytes 0.59 Absolute Eosinophils 0.51 Absolute Basophils 0.09 PT Cancelled INR Cancelled VBG pH 7.31 VBG pCO2 52 H VBG pO2 34 VBG HCO3 26 VBG Total CO2 24 VBG O2 Saturation 55 VBG Base Excess 0 Sodium 132 L Potassium 3.4 L Chloride 94 L Carbon Dioxide 27.2 Anion Gap 10.8 BUN 23 H Creatinine 0.9 Est GFR (CKD-EPI 2020) 72.28 Glucose 145 H Calcium 10.8 H Magnesium 2.1 Total Bilirubin 0.3 AST 21 ALT 21 Alkaline Phosphatase 111 Ammonia Cancelled Troponin I 9 Total Protein 9.0 H Albumin 4.4 TSH Urine Color Yellow Urine Clarity Clear Urine pH 5.5 Ur Specific [place] 1.015 Urine Protein Negative Urine Ketones Negative Urine Blood Negative Urine Nitrite Negative Urine Bilirubin Negative Urine Urobilinogen 0.2 Ur Leukocyte Esterase Negative Urine Glucose Negative Salicylates < 2.8 Urine Opiates Screen Positive A Urine Methadone Screen Positive A Acetaminophen < 2 Ur Barbiturates Screen Negative Ur Tricyclics Screen Positive A Ur Amphetamines Screen Negative U Benzodiazepines Scrn Negative Urine Cocaine Screen Negative Ur THC Screen Negative Ethyl Alcohol < 3.0 01/14/25 01/14/25 01/14/25 00:05 02:31 06:06 WBC 9.02 RBC 3.74 L Hgb 9.6 L D Hct 31.5 L MCV 84 MCH 25.7 L MCHC 30.5 L RDW 14.4 Plt Count 525 H MPV 9.1 Immature Gran % Neutrophils % Lymphocytes % Monocytes % Eosinophils % Basophils % Nucleated RBC % Absolute Neutrophils Absolute Lymphocytes Absolute Monocytes Absolute Eosinophils Absolute Basophils PT 9.9 INR 1.0 VBG pH VBG pCO2 VBG pO2 VBG HCO3 VBG Total CO2 VBG O2 Saturation VBG Base Excess Sodium 138 Potassium 3.8 Chloride 101 Carbon Dioxide 28.7 Anion Gap 8.3 BUN 17 Creatinine 0.5 L Est GFR (CKD-EPI 2020) 105.98 Glucose 104 Calcium 9.5 Magnesium 2.0 Total Bilirubin 0.3 AST 17 ALT 18 Alkaline Phosphatase 79 Ammonia 12 Troponin I 9 Cancelled Total Protein 6.4 Albumin 3.0 L TSH Cancelled Urine Color Urine Clarity Urine pH Ur Specific [place] Urine Protein Urine Ketones Urine Blood Urine Nitrite Urine Bilirubin Urine Urobilinogen Ur Leukocyte Esterase Urine Glucose Salicylates Urine Opiates Screen Urine Methadone Screen Acetaminophen Ur Barbiturates Screen Ur Tricyclics Screen Ur Amphetamines Screen U Benzodiazepines Scrn Urine Cocaine Screen Ur THC Screen Ethyl Alcohol 01/14/25 06:06 WBC RBC Hgb Hct MCV MCH MCHC RDW Plt Count MPV Immature Gran % Neutrophils % Lymphocytes % Monocytes % Eosinophils % Basophils % Nucleated RBC % Absolute Neutrophils Absolute Lymphocytes Absolute Monocytes Absolute Eosinophils Absolute Basophils PT INR VBG pH VBG pCO2 VBG pO2 VBG HCO3 VBG Total CO2 VBG O2 Saturation VBG Base Excess Sodium Potassium Chloride Carbon Dioxide Anion Gap BUN Creatinine Est GFR (CKD-EPI 2020) Glucose Calcium Magnesium Total Bilirubin AST ALT Alkaline Phosphatase Ammonia Troponin I Total Protein Albumin TSH 1.00 Urine Color Urine Clarity Urine pH Ur Specific [place] Urine Protein Urine Ketones Urine Blood Urine Nitrite Urine Bilirubin Urine Urobilinogen Ur Leukocyte Esterase Urine Glucose Salicylates Urine Opiates Screen Urine Methadone Screen Acetaminophen Ur Barbiturates Screen Ur Tricyclics Screen Ur Amphetamines Screen U Benzodiazepines Scrn Urine Cocaine Screen Ur THC Screen Ethyl Alcohol Time Spent with Patient Time Spent with Patient: >50 minutes Time was spent: preparing to see the patient(eg.review tests), obtaining and/or reviewing separately otained hiistory, ordering medications,tests, procedures, referring, communicating with other health critical care registered nurse, indepentently interpreting results, counseling the patient and care coordination
[2025-01-14] MEDS: ARIPiprazole 5 MG TAB 10 MG PO (10:37)
[2025-01-14] MEDS: ARIPiprazole 15 MG TAB 30 MG PO (10:38)
[2025-01-14] MEDS: Diclofenac Sodium 75 MG TABEC PO (10:54)
--- NOTE | 2025-01-14 12:00 | RT.EKG_ITS ---
APPROVED REPORT Exam: Resting ECG Reason for Exam: Conversion to SR (07:00) Patient Location: I HR:80 bpm ECG Measurements Heart Rate 80 AXIS AR 139 P 39 QRSd 99 QRS 41 QT 380 T 91 QTc 439 Conclusion Sinus rhythm...normal P axis, V-rate 60- 99 Atrial premature complex...SV complex w/ short R-R interval Nonspecific T abnrm, anterolateral leads...T <-0.10mV, I aVL V2-V6
[2025-01-14 12:20] LABS: COVID-19 PCR Negative (Negative); Influenza A PCR Negative (Negative); Influenza B PCR Negative (Negative); RSV PCR Negative (Negative)
[2025-01-14 12:21] LABS: Source Nasopharynx
[2025-01-14] MEDS: oxyCODONE 10 MG TAB PO (12:53)
--- NOTE | 2025-01-14 13:37 | CHAPLAIN ---
Chapis was sitting up at the edge of the bed when I visited. She thinks we've met before. I explained my role and offered support. She was most interested in getting a phone called made and asked for help using the hospital phone. When I wasn't able to get the call through, I called [facility] and they put Chapis call through for her.
--- NOTE | 2025-01-14 13:47 | PT.INIE ---
PT Notes Visit Reasons: New onset atrial fibrillation with RVR, AMS Inpatient Physical Therapy Evaluation Date:01/14/2025 Referring Doctor: Carol Douglass NP PT Orders: PT CONSULT: Safety Consult for D/C Precautions: Fall risk, Standard Patient Profile/Admitting Diagnosis: pt is 64 yo female presented to ED from home via EMS because of altered mental status and sedation being found by her mother. She did receive Narcan in the field with little response but in the ED she was alert and slightly agitated. In ED pt found to be in Afib. Pt recently started Antibiotic for RLE cellulitis Pt admitted to Med Surg Unit for medical management and monitoring PMHX: Cellulitis of right leg (Acute) Altered mental status (Acute) New onset a-fib (Acute) Bilateral leg edema (Chronic) w stasis dermatitisRight leg weakness (Chronic) Frequent falls (Chronic) Microcytic anemia (Chronic) Ambulatory dysfunction (Acute) Lumbar spinal stenosis (Chronic) Primary osteoarthritis of left knee (Chronic) Transaminase or LDH elevation (Chronic) Tobacco use disorder (Chronic) Sleep disturbance (Chronic 07/18/05) Sedative, hypnotic or anxiolytic abuse (Chronic) [facility]; ? GRAND MAL SEIZURE, SECONDARY TO BENZO WITHDRAWAL 2006; one episode without any recurrence; occurred due to anxiety prior to incarceration Anxiety (Chronic 07/18/05) Medical History Gastric ulcer (08/18/05) 08/24 EGD: DUODENITIS; REACTIVE GASTROPATHY; ANTRAL ULCERATION; HYPERPLASTIC SQUAMOUS MUCOSA; NEG H. PYLORI Depression (07/18/05) history of 7 psych admissions 2010 Gastroparesis (07/18/05) Morbid obesity Chronic right-sided lumbar radiculopathy Osteoporosis Type 2 diabetes mellitus Essential hypertension History of fractured rib 09/12/23 [facility]. Left lateral 5th rib, anterior right rib 5&6. -hbCOPD (chronic obstructive pulmonary disease) Surgical History History of ankle surgery History of back surgery (10/17/17) L5-S1 facetectomy and lumbar body fusion [place] UVN ULCER/STOMACH SURGERY [facility] of [facility] (04/17/17) RIGHT/tal replacement of hip 2006 [facility]; HORSE ACCIDENTKNEE SURGERY 10/2014 LEFT KNEE; 01/2015 RIGHT KNEEEGD - [facility] Cholecystectomy (~06/2013) Social History/Home Situation: Lives with her mother in a single level dwelling with 3 steps to enter railing upon entry. Has grab bars near toilet and bathroom. Equipment Owned/DME: Front wheel walker, 4 wheeled walker, bariatric front-wheeled walker, wheelchair Subjective: Pt reports her primary mode of mobility is wheelchair. She states she step turns from bed to commode or bed to w/c. She is able to get and prepare meals from the wheelchair. She utilizes online shopping to get most of her needs met, such as groceries, or medication refills. Objective: [] General Observation:groggy female supine in bed telemetry in place, erythema and draining scabbed areas to RLE anteriorlateral [place]. Mental Status: Alert and Ox3 uncertain of all specifics that lead to hospitalization. Pt slightly agitated but agreeable to perform transfers with FwW Pain: 5/10 back and right leg Vital Signs: monitored via telemetry throughout ROM: Right Upper Extremity: Shoulder Flexion lacks the last 25% of AROM. Shoulder abduction lacks the last 25% of AROM. Elbow flexion WFL. Wrist flexion WFL. Functional opening and closing of hand WFL. Left Upper Extremity: Shoulder Flexion lacks the last 25% of AROM. Shoulder abduction lacks the last 25% of AROM. Elbow flexion WFL. Wrist flexion WFL. Functional opening and closing of hand WFL. Left Lower Extremity: Able to sit up at edge of bed to allow for 90 degrees of hip and knee flexion. Ankle dorsiflexion Neutral. Ankle plantarflexion WFL. Right Lower Extremity: Hip flexion WFL. Hip abduction WFL. Knee flexion WFL. Ankle dorsiflexion WFL. Ankle plantarflexion WFL. Strength: Right Upper Extremity: Shoulder flexors 3-/5. Shoulder abductors 3-/5. Elbow flexors 4/5. Elbow extensors 4/5. [place] strong. Left Upper Extremity: Shoulder flexors 3-/5. Shoulder abductors 3-/5. Elbow flexors 4/5. Elbow extensors 4/5. Head [place] strong. Left Lower Extremity: Hip flexors 2+/5. Hip abductors 2-/5. Knee flexors 2-/5. Knee extensors 3-/5. Ankle dorsiflexors 3-. Ankle plantarflexors 3. Right Lower Extremity:Hip flexors 4/5. Hip abductors 4/5. Knee flexors 4/5. Knee extensors 4/5. Ankle dorsiflexors 4/5. Ankle plantarflexors 4/5. Sensation: intact Bed Mobility/Transfers: [] supine to sit min A sit to supine mod A for RLE sit to stand CGA stand to sit CGA bed to/from commode step turn with FWW CGA Gait: non ambulatory at baseline--- pt able to take 5 steps to transfer dragging LLE Balance: [] Static Sitting: good but prefers to lean down to right Dynamic Sitting: fair Static Standing: fair - Dynamic Standing: Poor Special Tests: Mobility Limitations Standardized Measure [facility] AM-PAC 6 clicks Basic Mobility Inpatient Short Form: Raw Score: 14 CMS Score: 61.29% Informed Consent/Education: Patient instructed in purpose of PT consult and plan of care. Assessment: Patient presents with clinical signs and symptoms consistent with current/admitting diagnoses that have resulted to mobility limitations, gait instability, generalized weakness, and overall ADL decline as demonstrated by the following impairment level findings: 1. Decreased strength toB LE major muscle groups as before 2. Poorly managed pain 3. Impaired activity tolerance 4. High pain level and high anticipation of pain, high anxiety 5. Impairments are contributing to the following functional limitations: 1. Decline in bed mobility skills 2. Decline in transfer skills 3. Increased fall risk Patient is assessed as a 51740 moderate complexity based on the following: History: 63-year-old female with past medical history as indicated above Examination: Demonstrable impairment in strength, balance, and mobility level with underlying impairments and functional limitations as exhibited above as well as deficit score of 69% utilizing the [facility] Mobility Inpatient Short Form Presentation: Evolving Decision Makin moderate complexity Goals: Goals X1 week 1. Supine-Sit : independent 2. Sit-Supine independent 3. Sit-Stand: stand by assist with bariatric walker 4. Stand-Sit : stand by assist with bariatric walker 5. Bed-Chair: stand by assist with bariatric walker 6. Chair-Bed: stand by assist with bariatric walker Plan of Care/Treatment Plan: 1-2x/day, 7 days/week x 1 week. Plan of care has been reviewed with the PRACTICE PHYSICIAN providing the service under Physical Therapy direction. Initiate Physical Therapy intervention for strengthening, bed mobility, transfers, gait, stairs, balance training, use of assistive device. DISCHARGE RECOMMENDATIONS: [] [] Home with no services [] [X] Home with services PT [] Home with outpatient PT [] [] SNF for continued rehabilitation [] [] Reproduction Order Processor Care [] [] SNF versus LTC based on ability to participate and progress [] TREATMENT CODE/TIME: 27027/ [id number]
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
--- NOTE | 2025-01-14 15:37 | PHA.REVIEW2 ---
Pharmacy Admission Review Admission Clinical Review Admission Pharmacy Review: Cellulitis of right leg (Acute) Altered mental status (Acute) New onset a-fib (Acute) No Known Drug Allergies Allergy (Unknown, Verified 01/13/25 23:13) none Resuscitation Status Full Code Height 5 ft 5 in Weight 94.7 kg Pharmacy Admission Review Renal Dosing Renal Dosing: BUN 17 mg/dL (7-18) 01/14/25 06:06 Creatinine 0.5 mg/dL (0.55-1.02) L 01/14/25 06:06 Medications needing adjustments: Reviewed (CrCl 66.37 mL/min) List of meds needing interventions: Current medications are okay Anticoagulation Anticoagulation: Hgb 9.6 g/dL (11.2-15.7) L D 01/14/25 06:06 Hct 31.5 % (36.0-46.0) L 01/14/25 06:06 Plt Count 525 10^3/uL (130-400) H 01/14/25 06:06 INR 1.0 (0.9-1.1) 01/14/25 00:05 Creatinine 0.5 mg/dL (0.55-1.02) L 01/14/25 06:06 DVT Prophylaxis: Reviewed (Hgb decreased from 12.1) Medications: Enoxaparin (40mg daily) Opiate Usage Evaluate Pain Scale/Pains Meds: Reviewed (methadone 10mg q12h (on hold), oxycodone 10mg TID PRN - 10mg / 24hrs) Scheduled Bowel Reg ordered if on Opiates?: No (PRN Miralax and docusate) Relevant Labs Relevant Labs: Sodium 138 mmol/L (136-145) 01/14/25 06:06 Potassium 3.8 mmol/L (3.5-5.1) 01/14/25 06:06 Chloride 101 mmol/L (98-107) 01/14/25 06:06 Magnesium 2.0 mg/dL (1.8-2.4) 01/14/25 06:06 Electrolytes, C-Reactive P, ESR: Reviewed DM Control DM Control: Glucose 104 mg/dL (74-106) 01/14/25 06:06 Finger Stick Blood Glucose 113 1151 Finger Stick Blood Glucose 113 1140 Finger Stick Blood Glucose 113 1140 DM Control: Reviewed Insulin Dosing, Diabetic Medication: Has order for SS insulin Cardiac Review Cardiac Review: Troponin I Cancelled 01/14/25 02:31 Blood Pressure 91/65 1454 Blood Pressure 98/64 1441 Blood Pressure 117/78 1142 Blood Pressure 108/74 0717 BP, HR, EF%: Reviewed (HR 91) List meds needing interventions: Has orders for diltiazem 60mg TID (changing to 180mg CD daily starting tomorrow), HCTZ 6.25mg daily and lisinopril 5mg daily QTc Review QTc: Reviewed (409 from 01/13/25) IV to PO Switch IV Medications: Reviewed Home Meds Home Med List reviewed: Intervened Relevent Home Meds Not ordered & why?: Prolia ([id number]) and furosemide (PRN) Home list has methadone dose as 20mg q12h, order was put in for 10mg q12h. Spoke to provider, it is currently on hold but provider will look into it once it is resumed. Current Meds Current Medication Order Review: Intervened Comments: Changed IV ED access Added 2nd PRN to oxycodone order per pharmacy protocol Pharmacy Antibiotic Review Relevant Labs: WBC 9.02 10^3/uL (4.4-10.8) 01/14/25 06:06 Temperature 36.8 C Temperature 36.4 C Temperature 36.3 C Pharmacy Antibiotic Activity: Reviewed, no change Comments: Patient is on Bactrim DS PO for cellulitis (started prior to admission). Per external fill history prescription was filled on 01/12 for a 7 day supply. WBC decreased from 13.11.
[2025-01-14] MEDS: Methadone 10 MG TAB PO (20:51)
[2025-01-14] MEDS: Doxepin 50 MG CAP 200 MG PO (20:52)
[2025-01-14] MEDS: Patch Removal 1 EACH TP (20:55)
[2025-01-15 03:32] VITALS: BP 94/73; PULSE 65; RESP 19; TEMP 36.7; O2SAT 97
[2025-01-15 05:33] VITALS: BP 100/65
[2025-01-15] MEDS: dilTIAZem CD 180 MG CAPCR PO (05:41)
[2025-01-15 07:15] LABS: HCT 30.8 % (36.0-46.0); HGB 8.8 g/dL (11.2-15.7); MCH 24.9 pg (27.0-33.0); MCHC 28.6 % (32.0-36.0); MCV 87 fL (80-95); MPV 9.3 fL (8.0-11.0); Platelet Count 464 10^3/uL (130-400); RBC 3.53 10^6/uL (3.93-5.22); RDW 14.7 % (11.7-14.6); RDW-SD 47.2 fL; WBC 7.38 10^3/uL (4.4-10.8)
[2025-01-15 07:41] LABS: ALT 15 U/L (14-59); AST 12 U/L (15-37); Albumin 2.9 g/dL (3.4-5.0); Alkaline Phosphatase 74 U/L (46-116); Anion Gap 5.1 mmol/L (3-11); BUN 30 mg/dL (7-18); Bilirubin, Total 0.2 mg/dL (0.2-1.0); CO2 28.9 mmol/L (21.0-32.0); CREATININE 0.9 mg/dL (0.55-1.02); Calcium 9.4 mg/dL (8.5-10.1); Chloride 103 mmol/L (98-107); Estimated GFR 72.28 (mL/min/1.73m2); Glucose 87 mg/dL (74-106); Magnesium 2.1 mg/dL (1.8-2.4); Potassium 3.9 mmol/L (3.5-5.1); Sodium 137 mmol/L (136-145)
[2025-01-15] MEDS: Enoxaparin 40 MG/0.4 ML SYR SC (07:49)
[2025-01-15 07:50] VITALS: BP 95/67; PULSE 91; RESP 15; TEMP 36.9; O2SAT 98
[2025-01-15] MEDS: Gabapentin 400 MG CAP 800 MG PO ×2 (07:50→12:14)
[2025-01-15] MEDS: Fenofibrate, Micronized 48 MG TAB PO (07:50)
[2025-01-15] MEDS: ARIPiprazole 15 MG TAB 30 MG PO (07:50)
[2025-01-15] MEDS: ARIPiprazole 5 MG TAB 10 MG PO (07:50)
[2025-01-15] MEDS: DULoxetine 30 MG CAP 60 MG PO (07:50)
[2025-01-15] MEDS: Simvastatin 20 MG TAB PO (07:50)
[2025-01-15] MEDS: Methadone 10 MG TAB PO (07:51)
[2025-01-15] MEDS: Sulfameth/Trimeth DS TAB 1 TAB PO (07:51)
--- NOTE | 2025-01-15 09:25 | W.PM.PROGNOT ---
Date of Service Date of service: 01/15/25 Time of Service: 09:25 Exam Narrative Exam Narrative: Alert and oriented X3, no acute distress, clear lungs to auscultation bilaterally, S1, S2, no murmur on tele -SR, ABD in non-distended, soft , non tender, no CVA tenderness, RLE weakness- chronic, poor insight Const Other: Obese woman awake and alert Neck Other: No neck vein distention and V waves carotid pulsations are grossly normal no bruits Resp Auscultation: clear to auscultation bilaterally Cardio Other: Heart is regular there is an S4 Extrem Other: No significant edema Objective Last Vital Signs Temp 36.9 C 01/15/25 07:50 Pulse 91 H 01/15/25 07:50 Resp 15 01/15/25 07:50 BP 95/67 L 01/15/25 07:50 Pulse Ox 98 01/15/25 07:50 Laboratory Results - last 24 hr 01/14/25 01/15/25 11:30 06:30 WBC 7.38 RBC 3.53 L Hgb 8.8 L Hct 30.8 L MCV 87 MCH 24.9 L MCHC 28.6 L RDW 14.7 H Plt Count 464 H MPV 9.3 Sodium 137 Potassium 3.9 Chloride 103 Carbon Dioxide 28.9 Anion Gap 5.1 BUN 30 H Creatinine 0.9 Est GFR (CKD-EPI 2020) 72.28 Glucose 87 Calcium 9.4 Magnesium 2.1 Total Bilirubin 0.2 AST 12 L ALT 15 Alkaline Phosphatase 74 Total Protein 6.0 L Albumin 2.9 L COVID-19 Source Nasopharynx SARS-CoV-2 (PCR) Negative Influenza Type A (PCR) Negative Influenza Type B (PCR) Negative RSV (PCR) Negative
--- NOTE | 2025-01-15 09:29 | CMDISCH_ITS ---
Date of service: 01/15/25 Time of Service: 09:29 LACE Index Scoring Tool Questions: Length of Stay (in days): 3 Was the patient admitted via the E.D.?: Yes E.D. Visits: 4 Answers: Total Score: 10 Risk of Readmission: High Risk Care Management Discharge Plan Reason for Hospitalization: New onset of afib with RVR, AMS Discharge Plan: Discharge home with resumption of [facility] PT/OT/INTERNSHIP COORDINATOR, sanya RN. Transportation is via private vehicle with mother. Maryjane will follow up with PCP and discharge plan of care as directed. Patient/Family Education Needs: Review discharge instructions and plan for outpatient follow up. Discuss ask me three. Services Needed at Discharge: Home Health Care Services (Resume [facility] PT/OT/INTERNSHIP COORDINATOR, sanya RN) SDOH Health Related Social Needs: No Data to Display
[2025-01-15] MEDS: Metoprolol 12.5 MG TAB PO (09:40)
[2025-01-15] MEDS: Polyethylene Glycol 3350 17 GM PACKET PO (09:50)
[2025-01-15] MEDS: Normal Saline Flush 10 ML SYR IVP (09:50)
--- NOTE | 2025-01-15 10:13 | PTTR_ITS ---
PT Notes Visit Reasons: New onset atrial fibrillation with RVR, AMS Physical Therapy Treatment Note Date: 01/15/2025 Precautions: Fall risk. Standard precautions. Subjective: Pt reports she is more awake and feeling like herself. Objective: General Observation: Patient lying in hospital bed Telemetry monitoring in place. Mental Status: Alert and oriented x 4 Pain: Moderate to severe with movement Vital Signs: Closely monitored by nursing staff Bed Mobility/Transfers: Minimal cueing provided for use of B hands as needed for support, movement sequence, AD management, and posture to reduce fall risk and minimize pain report Supine?sit: stand by assist Sit?stand: contact guard assist Stand?sit: contact guard assist Bed<>bedside commode: step turn to left contact guard assist with FWW chair to bed step turn with FWW CGA Balance: Static Sitting: Normal Dynamic Sitting: Normal Static Standing: Fair Dynamic Standing: Fair- ASSESSMENT:?? Pt tolerated session well . Pt with improved ability to perform stand step / pivot transfers with FWW. Pt remains limited and at risk for falls d/t impaired motor control of LLE difficulty advancing forward or abduction . Pt drags LLE along. Pt performs transfers with less difficulty with her booty slippers on. Pt becomes agitated when staff hold on to her or if she feels as staff may be pulling or pushing on the gait belt. Plan of Care/Treatment Plan: 1-2x/day, 7 days/week x 1 week. Plan of care has been reviewed with the ANESTHESIOLOGIST ASSISTANT CERTIFIED providing the service under Physical Therapy direction. Initiate Physical Therapy intervention for strengthening, bed mobility, transfers, gait,, balance training, use of assistive device. DISCHARGE RECOMMENDATIONS: [] Home with no services [] [X] Home with services PT [] Home with outpatient PT [] [] SNF for continued rehabilitation. [] Motor Polarizer Care [] [] SNF versus LTC based on ability to participate and progress [] TREATMENT CODE/TIME: Session 1--37336 for 20 minutes for 1 unit / [id number].
[2025-01-15] MEDS: Lactated Ringers 1,000 ML 1000 ML IV (10:40)
[2025-01-15 11:24] VITALS: BP 95/45; PULSE 61; RESP 14; TEMP 36.9; O2SAT 97
[2025-01-15 11:42] LABS: Fentanyl Scr w/Rfx Confirm Negative ng/mL (<1)
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
--- NOTE | 2025-01-15 13:48 | PDOC.HHF2F ---
Home Health Referral Home Health Orders Clinical synopsis of why skilled professionals are needed: This 64 yo female patient with a past medical history of depression, tobacco use disorder, RLE cellulitis on Bactrim back pain , spinal stenosis on methadone and oxycodone presented to ED by EMS on 01/13/25 after being activated by patient's mother for unresponsiveness/altered mental status. Patient did receive Narcan in the field with no reported acute change although on arrival to the ED the patient was awake and alert, seemingly irritated and mildly confused. head CT was negative, patient found to be in atrial fibrillation with rapid ventricular response in the ED, with resolution and conversion to sinus rhythm s/p IV diltiazem with transition to oral. Blood work was unremarkable with correction of minimal electolyte abnormalities for K at 3.4 , Mg at 1.2, Na 132; urine drug screen positive for opiates, methadone and tricyclic's. Cardiology recommendation for metoprolol to prevent recurrence of atrial fibrillation implemented and patient will be discharged home on low dose metoprolol succinate, lisinopril dose reduced to 2.5 mg daily. Anticoagulation not recommended. Prescribed methadone and oxycodone for 14-day per supply 5 days prior to presentation confirmed with PCP; patient will have to seek refill from PCP. On the day of discharged the patient was hemodynamically stable and a-febrile. 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 Home health resumption of PT, OT, CORNER BRACE BLOCK MACHINE OPERATOR and new RN on discharge. Follow-up with PCP within 7 days of discharge please. Discussed with Dr. Alvares Registered Nurse: Check all that apply Instruct on new or changed medication(s)/assess compliance: Ordered Assess for exacerbation of medical condition, instruct patient/caregivers on signs and symptoms to report for early detection: Ordered (worsening back pain; leg weakness) Physical Therapist: Check all that apply Increase strength & endurance for safe mobility at home: Ordered To design/establish home maintenance program: Ordered Fall reduction therapy program for patient with history of frequent falls: Ordered Home safety evaluation and teaching/gait training including stair management (if applicable): Ordered Occupational Therapist: Evaluate and treat for patient unable to perform ADL/IADL/self-care: Ordered Boilers And Pressure Vessels Inspector: Assist with community resources: Ordered Home Bound Status Requires the aid of supportive device (check all that apply): Wheelchair Patient has a condition such that leaving home is medically contraindicated (Describe): Bilateral lower extremity weakness, frequent falls; chronic low back pain; awaiting surgery Encounter Date and Reason: I certify that a FTF encounter for this patient was performed on January 15, 2025 and that such encounter was related to the primary reason the patient requires home health services. The encounter was conducted in the following manner: By me as the certifying physician, IT PROGRAM MANAGER, PA or By an inpatient physician, IT PROGRAM MANAGER or PA during an inpatient stay who communicated findings to me, Certification And Authentication I certify that I composed the above information based on my clinical judgment relating to this patient's medical condition and, if applicable, clinical findings communicated to me by the NPP or inpatient physician who performed the FTF encounter. Name of Provider that will be monitoring home health services: Shahzad Olivarez
[2025-01-15 13:53] LABS: Anion Gap 5.4 mmol/L (3-11); BUN 34 mg/dL (7-18); CO2 28.6 mmol/L (21.0-32.0); Calcium 9.2 mg/dL (8.5-10.1); Chloride 101 mmol/L (98-107); Glucose 92 mg/dL (74-106); Potassium 4.4 mmol/L (3.5-5.1); Sodium 135 mmol/L (136-145)
[2025-01-16 13:04] LABS: Oxycodone Screen, U Presumptive Positive ng/mL (Cutoff: 100)
--- NOTE | 2025-01-18 11:54 | DI.[facility]_ITS ---
PROCEDURE INFORMATION: Exam: CT Head Without Contrast Exam date and time: 01/14/2025 12:38 AM Age: 64 years old Clinical indication: Altered mental status/memory loss TECHNIQUE: Imaging protocol: Computed tomography of the head without contrast. Radiation optimization: All CT scans at this facility use at least one of these dose optimization techniques: automated exposure control; mA and/or kV adjustment per patient size (includes targeted exams where dose is matched to clinical indication); or iterative reconstruction. COMPARISON: No relevant prior studies available. FINDINGS: Brain: Age related diffuse parenchymal volume loss. There are bilateral periventricular white matter and centrum semiovale hypodensities, consistent with chronic ischemic small vessel disease. No recent infarct, intracranial bleed or mass effect. Cerebral ventricles: No ventriculomegaly. Pituitary gland and sella: There is a normal empty pituitary sella. Paranasal sinuses: Mild mucosal disease of the left maxillary sinus. Mastoid air cells: Visualized mastoid air cells are well aerated. Bones: Unremarkable. No acute fracture. Soft tissues: Unremarkable. IMPRESSION: No large territorial infarct or intracranial bleed. Dictated and Authenticated by: Surjit Escalante MD. Orderin Luis Newberry MD
[2025-01-19 16:12] LABS: Codeine Negative ng/mL (Cutoff: 25); Dihydrocodeine Negative ng/mL (Cutoff: 25); Hydrocodone Negative ng/mL (Cutoff: 25); Hydromorphone Negative ng/mL (Cutoff: 25); Morphine Negative ng/mL (Cutoff: 25); Naloxone 154 ng/mL (Cutoff: 25); Norhydrocodone Negative ng/mL (Cutoff: 25); Noroxycodone 7148 ng/mL (Cutoff: 25); Noroxymorphone 488 ng/mL (Cutoff: 25); Opiates Interpretation Positive.
== END 2025-01-15 15:14 | disposition home health service (06) | DRG 309 ==
LOC: ER 01-14 01:59 → MS 01-14 02:21
PROVIDERS: Admitting Provider Family Medicine; Emergency Provider Emergency Medicine; PCP Family Medicine; Responsible Provider Nurse Practitioner Acute Care; Visit Provider Family Medicine
DX: I48.91 Unspecified atrial fibrillation (principal); F11.20 Opioid dependence, uncomplicated; L03.115 Cellulitis of right lower limb; F13.10 Sedative, hypnotic or anxiolytic abuse, uncomplicated; R60.0 Localized edema; I10 Essential (primary) hypertension; F17.210 Nicotine dependence, cigarettes, uncomplicated; F41.9 Anxiety disorder, unspecified; I87.2 Venous insufficiency (chronic) (peripheral); R29.6 Repeated falls; M17.12 Unilateral primary osteoarthritis, left knee; D50.9 Iron deficiency anemia, unspecified; M48.061 Spinal stenosis, lumbar region without neurogenic claudication; R74.01 Elevation of levels of liver transaminase levels; E11.43 Type 2 diabetes mellitus with diabetic autonomic (poly)neuropathy; K31.84 Gastroparesis; M81.0 Age-related osteoporosis without current pathological fracture; E66.01 Morbid (severe) obesity due to excess calories; J44.9 Chronic obstructive pulmonary disease, unspecified; G89.29 Other chronic pain; I83.018 Varicose veins of right lower extremity with ulcer other part of lower leg; R53.1 Weakness; Z87.11 Personal history of peptic ulcer disease; F32.A Depression, unspecified; Z68.34 Body mass index [BMI] 34.0-34.9, adult
CPT/HCPCS: 00123; 36415; 51702; 80048; 80053; 80307; 80361; 80362; 80365; 82805; 85027; 87637; 93005; 93306; 96361; 96374; 96376; 97162; 97530; 99222; 99291; J1650; 70450; 80320; 80329; 81003; 82140; 83735; 84443; 84484; 85025; 85610; 93010; 99223; 99239; J1815; J3490

== ENCOUNTER 2025-02-17 21:45 | Outpatient (REF) | payer MEDICARE, SELFPAY | END 2025-02-17 21:46 | disposition home or self-care (01) | LOC: LBN 21:45 | PROVIDERS: PCP Family Medicine; Visit Provider Family Medicine | DX: S81.801A Unspecified open wound, right lower leg, initial encounter (principal) | CPT/HCPCS: 87077; 87070; 87186; 87205 ==

== ENCOUNTER 2025-05-13 21:44 | Inpatient (IN) | payer MEDICARE, SELFPAY ==
[2025-05-13] VITALS (21 sets, daily range): BP systolic 118–179; BP diastolic 58–124; PULSE 57–135; RESP 17–29; TEMP 36.4; O2SAT 89–100
--- NOTE | 2025-05-13 21:30 | RT.EKG_ITS ---
APPROVED REPORT Exam: Resting ECG Reason for Exam: weakness Patient Location: E HR:107 bpm ECG Measurements Heart Rate 107 AXIS OK 156 P 58 QRSd 92 QRS 69 QT 313 T 53 QTc 405 Conclusion Sinus tachycardia...rate> 99 Atrial premature complexes...SV complexes w/ short R-R intvls no ST segment or T wave abnormalities to suggest occlusive MT
--- NOTE | 2025-05-13 22:00 | DI.RAD_ITS ---
Exam(s) XR PORTABLE CHEST AP EXAM: XR PORTABLE CHEST AP CLINICAL HISTORY: SOB TECHNIQUE: 2D digital imaging was performed. COMPARISON: CR XR PORTABLE CHEST AP from 05/01/2024 FINDINGS: LUNGS: Pulmonary vascular prominence and increased interstitial markings bilaterally as well as peribronchial thickening, suspicious for pulmonary edema. No focal area of consolidation is visible. No pleural abnormality seen. HEART: Enlarged. AORTA: Normal diameter. BONES: Unremarkable for age. Soft tissues: Unremarkable. IMPRESSION: Findings consistent with moderate pulmonary edema. DATA REPOSITORY: RADIATION DOSE DELIVERED:
--- NOTE | 2025-05-13 22:11 | DI.CT_ITS ---
Exam(s) CT HEAD CERVICAL SPINE WO EXAM: CT HEAD CERVICAL SPINE WO CLINICAL HISTORY: altered mental status. TECHNIQUE: Imaging Protocol: Axial computed tomography images with coronal and sagittal reformatted images were created and reviewed COMPARISON: CT CT HEAD WO from 01/14/2025 FINDINGS: Head CT Ventricles and Extra axial spaces: Normal in size and morphology for the patient's age. Hemorrhage: None. Cerebral parenchyma: No evidence of mass or acute infarct. atrophy is again noted, greatest in the frontal temporal regions. Midline shift: None. Brainstem/Cerebellum: Normal. Calvarium: Normal. Visualized Paranasal sinuses/Mastoids: Large amount of mucous within the right maxillary sinus. Mild mucous retention at the floor of the left maxillary sinus. Mid mucosal thickening of the left sphenoid and several ethmoid sinuses. Soft tissues: Large posterior sebaceous cyst. Cervical Spine CT The exam is limited by patient body habitus. BONES: Vertebral body heights are maintained. Alignment is normal. There is no evidence of acute fracture. Degenerative disc changes and facet degenerative changes are seen . SOFT TISSUES: No paraspinal hematoma. The airway appears intact. There is some debris in the upper esophagus. IMPRESSION: Head CT: No acute intracranial abnormality. Sinus disease. C-spine CT: Degenerative changes, no acute abnormality. The preliminary [facility] report was reviewed. RADIATION DOSE DELIVERED: 1,500.03mGy.cm Total DLP DATA REPOSITORY: All CT scans at this facility are submitted to the National Radiology Data Registry (NRDR) Dose Index Registry (DIR) with the [employer] (ACR). RADIATION OPTIMIZATION: All CT scans at this facility use at least one of these dose optimization techniques: automated exposure control; mA and/or kV adjustment per patient size (includes targeted exams where dose is matched to clinical indication); or iterative reconstruction.
[2025-05-13 22:20] LABS: BE (Venous) 6 mmol/L (-2-3); HCO3 (Venous) 33 mmol/L (23-28); O2 Sat (Venous) 47 %; TCO2 (Venous) 33 mmol/L (24-29); pO2 (Venous) 31 mmHg
[2025-05-13 22:22] LABS: Abs Immature Grans 0.05 10^3/uL (0.0-0.06); HCT 32.8 % (36.0-46.0); HGB 7.8 g/dL (11.2-15.7); Immature Grans % 0.6 %; MCH 17.8 pg (27.0-33.0); MCHC 23.8 % (32.0-36.0); MCV 75 fL (80-95); MPV 9.6 fL (8.0-11.0); Platelet Count 423 10^3/uL (130-400); RBC 4.39 10^6/uL (3.93-5.22); RDW 19.3 % (11.7-14.6); RDW-SD 52.2 fL; WBC 7.86 10^3/uL (4.4-10.8); pCO2 (Venous) 71 mmHg (41-51)
[2025-05-13] MEDS: cefTRIAXone 1 GM/50 ML BAG IVPB (22:25)
[2025-05-13 22:31] LABS: Hypochromasia 2+; Microcytosis 2+
[2025-05-13 22:37] LABS: INR 1.0 (0.9-1.1); Prothrombin Time 10.2 sec (9.1-11.1)
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
[2025-05-13 22:50] LABS: ALT 16 U/L (14-59); AST 11 U/L (15-37); Albumin 2.9 g/dL (3.4-5.0); Alkaline Phosphatase 119 U/L (46-116); Anion Gap 2.4 mmol/L (3-11); BUN 14 mg/dL (7-18); Bilirubin, Total 0.4 mg/dL (0.2-1.0); CO2 34.6 mmol/L (21.0-32.0); Calcium 9.0 mg/dL (8.5-10.1); Chloride 105 mmol/L (98-107); Estimated GFR 101.42 (mL/min/1.73m2); Glucose 116 mg/dL (74-106); Magnesium 2.2 mg/dL (1.8-2.4); NT-proBNP 4309 pg/mL (<300); Potassium 4.2 mmol/L (3.5-5.1); Sodium 142 mmol/L (136-145); TSH (W/Ref FT4) 2.13 uIU/mL (0.36-3.74); Total Protein 6.4 g/dL (6.4-8.2); Troponin I 14 ng/L (<or=51)
--- NOTE | 2025-05-13 22:54 | DI.CT_ITS ---
Exam(s) CT CHEST PE ABD PELVIS W EXAM: CT CHEST PE ABD PELVIS W CLINICAL HISTORY: SOB, R ribs TTP, ? aspiration, ?PE. TECHNIQUE: Imaging Protocol: Axial computed tomography images with coronal and sagittal reformatted images were created and reviewed. Computer aided detection (CAD) was utilized. CONTRAST MATERIAL: Intravenous: Omnipaque 350 Contrast volume:100 ml Oral: no COMPARISON: CT CHEST FOR PULMONARY EMBOLUS from 12/01/2009 CR XR HIP LT COMPLETE AP PELVIS from 05/04/[address] THORACIC LUMBAR SPINE WO from 05/01/2024 CR XR LUMBAR SPINE COMPLETE from 12/05/2024 CR,XR XR PORTABLE CHEST AP from 05/13/2025 FINDINGS: CHEST: Exam is limited by patient arm positioning and body habitus. Pulmonary parenchyma: There is interlobular septal thickening consistent with pulmonary edema. There is small amount of fluid in the right major fissure. No consolidation. No dominant measurable mass. There are mild emphysematous changes. Tracheobronchial tree: No bronchiectasis. No mucous plugging.No bronchial wall thickening. Pleura: Small right pleural effusion. No pneumothorax. Mediastinum: Within normal limits. Pulmonary arteries: No visible emboli. Cardiovascular: The heart is enlarged. No pericardial effusion. Thoracic aorta non-dilated. Bones: Multiple old subacute right rib fractures. There are acute appearing fractures of the right posterolateral 4th through 7th ribs. Old left anterior rib fractures. No lytic or blastic lesions. No compression fractures. Levoscoliosis. Soft tissues: Unremarkable soft tissue swelling over the right lateral chest. ABDOMEN and PELVIS: Liver: Normal density. No suspicious mass. Gallbladder and biliary tract: Cholecystectomy. No biliary dilatation. Pancreas: Normal density, no abnormal calcifications or inflammatory process. Spleen: Normal. Kidneys: Normal size, contour and axis. No radiodense stones. No obstructive uropathy. No suspicious masses seen. Adrenal glands: No masses seen. Aorta: Abdominal portion non-dilated. Atherosclerotic changes. Lymph nodes: Within normal limits. Soft tissues: Anasarca. Large anterior abdominal wall hernia containing a loop of colon again noted, not significantly changed. Bladder: Decompressed by Villatoro catheter. Bowel: Suture material at stomach. Apparent gastric bypass. No obstruction or bowel wall thickening. The appendix is normal. Moderate quantity of stool. Peritoneal cavity: No ascites. No focal collection. No mesenteric inflammatory response. No free air. Bones: Subacute appearing minimally displaced fracture of the left ilium extending through to the superior left acetabulum. Mild flattening of the superior left femoral head. Right hip prosthesis. Posterior fusion hardware at L5-S1. No significant change in appearance of old compression fracture of the left side of L3. Severe degenerative changes and sclerosis are present at L3 3 4 and L4-5, unchanged from prior CT.. Reproductive organs: Partially obscured by artifact from hip prosthesis. IMPRESSION: Chest: No evidence of pulmonary emboli. Small right pleural effusion and pulmonary edema. No focal area of consolidation. Acute fractures of the right anterior 4th through 7th ribs. No pneumothorax. Abdomen pelvis: Subacute appearing fracture of the left ilium extending to the superior acetabulum. Also subacute appearing impaction fracture of the superior left femoral head. No internal organ injury. Stable appearance of ventral hernia containing nonobstructed loop of colon. The preliminary [facility] report was reviewed. RADIATION DOSE DELIVERED: 2,056.41mGy.cm Total DLP DATA REPOSITORY: All CT scans at this facility are submitted to the National Radiology Data Registry (NRDR) Dose Index Registry (DIR) with the [employer] ([employer]). RADIATION OPTIMIZATION: All CT scans at this facility use at least one of these dose optimization techniques: automated exposure control; mA and/or kV adjustment per patient size (includes targeted exams where dose is matched to clinical indication); or iterative reconstruction.
[2025-05-13 22:56] LABS: Ammonia 12 umol/L (11-32)
[2025-05-13] MEDS: Albuterol/Ipratropium 3 ML UPD VIAL UPD ×3 (23:07)
[2025-05-13] MEDS: dexmedeTOMidine IN 0.9 % NACL 400 MCG/100 ML BTL 180 MCG IV (23:10)
[2025-05-13 23:23] LABS: BE (Venous) 4 mmol/L (-2-3); HCO3 (Venous) 30 mmol/L (23-28); O2 Sat (Venous) 88 %; TCO2 (Venous) 29 mmol/L (24-29); pCO2 (Venous) 53 mmHg (41-51); pO2 (Venous) 56 mmHg
[2025-05-13 23:48] LABS: Glucose Negative (Negative)
[2025-05-13 23:55] LABS: Troponin I 11 ng/L (<or=51)
[2025-05-13] MEDS: VANCOMYCIN 1,500 MG in Normal Saline 250 ML 166.6666 MG IVPB (23:56)
[2025-05-14] VITALS (117 sets, daily range): BP systolic 78–146; BP diastolic 31–106; PULSE 48–153; RESP 12–33; TEMP 36.7–37.8; O2SAT 80–99
[2025-05-14] LABS: Cannabinoids THC Negative (Negative); METHADONE URINE SCREEN Positive (Negative)
--- NOTE | 2025-05-14 00:03 | DI.[facility]_ITS ---
PROCEDURE INFORMATION: Exam: XR Chest Exam date and time: 05/13/2025 10:23 PM Age: 64 years old Clinical indication: Shortness of breath TECHNIQUE: Imaging protocol: Radiologic exam of the chest. Views: 1 view. COMPARISON: CR XR PORTABLE CHEST AP 05/01/2024 1:53 PM FINDINGS: Lungs: Bilateral peribronchial and interstitial thickening, most compatible with moderate pulmonary edema. Pleural spaces: Unremarkable. No pleural effusion. No pneumothorax. Heart/Mediastinum: The heart demonstrates diffuse enlargement. Bones/joints: No acute osseous abnormality. Soft tissues: Soft tissues are unremarkable as visualized. IMPRESSION: Bilateral peribronchial and interstitial thickening, most compatible with moderate pulmonary edema. Dictated and Authenticated by: Komal Chaudhry MD. Orderin Julio Araya MD
--- NOTE | 2025-05-14 00:16 | DI.[facility]_ITS ---
PROCEDURE INFORMATION: Exam: CTA Chest With Contrast CTA Abdomen With Contrast Exam date and time: 05/13/2025 11:40 PM Age: 64 years old Clinical indication: Other: SOB, R ribs ttp, ? aspiration, ? pe TECHNIQUE: Imaging protocol: Computed tomographic angiography of the chest with contrast. Exam focused on the arteries. Computed tomographic angiography of the abdomen with contrast. Exam focused on the arteries. 3D rendering (Not supervised by radiologist): MIP and/or 3D reconstructed images were created by the technologist. Radiation optimization: All CT scans at this facility use at least one of these dose optimization techniques: automated exposure control; mA and/or kV adjustment per patient size (includes targeted exams where dose is matched to clinical indication); or iterative reconstruction. Contrast material: OMNIPAQUE 350; Contrast volume: 100 ml; Contrast route: INTRAVENOUS (IV); COMPARISON: CR XR PORTABLE CHEST AP 05/13/2025 10:23 PM FINDINGS: VASCULATURE: Pulmonary arteries: No evidence of pulmonary embolism. Aorta: There is severe diffuse atherosclerotic disease of the abdominal aorta. Celiac and mesenteric arteries: No occlusion or significant stenosis. Renal arteries: No occlusion or significant stenosis. Thyroid: No thyroid lesions. No thyroid enlargement. CHEST: Trachea: The central airways clear. Lungs: Bilateral peribronchial and interstitial thickening, most compatible with moderate pulmonary edema. Pleural spaces: Small pleural effusions, [id number]-left. Heart: The heart demonstrates diffuse enlargement. ABDOMEN AND PELVIS: Liver: The liver is unremarkable. Gallbladder and biliary ducts: Post cholecystectomy. Pancreas: The pancreas is unremarkable. Spleen: No splenomegaly. No lesions. Adrenal glands: The adrenal glands are unremarkable. Kidneys: The kidneys are normal. Stomach and bowel: There has been a prior gastrectomy. Moderate stool throughout the colon and rectum. Large bowel and omentum containing anterior abdominal wall hernia. Appendix: Appendix is not seen but there is no pericecal inflammatory change. Intraperitoneal space: See Stomach and bowel finding. Urinary bladder: Villatoro catheter within the urinary bladder. Reproductive: The uterus is unremarkable. Lymph nodes: Unremarkable. No enlarged lymph nodes. Bones/joints: Old left 10th rib fracture. Acute fractures of the right posterolateral 4th through 7th ribs. Subacute right posterolateral 1st, 2nd and 10th ribs. Right hip prosthesis noted. No evidence of malalignment. Postsurgical changes at L5/S1. The lumbar spine demonstrates marked degenerative changes at multiple levels. Nondisplaced fracture through the inferior portion of the left pelvic bone extending to the left acetabulum, appears subacute Soft tissues: There is diffuse anasarca. IMPRESSION: 1. No evidence of pulmonary embolism. 2. Small pleural effusions, [id number]-left. 3. Bilateral peribronchial and interstitial thickening, most compatible with moderate pulmonary edema. 4. There is diffuse anasarca. 5. Acute fractures of the right posterolateral 4th through 7th ribs. 6. Subacute right posterolateral 1st, 2nd and 10th ribs. 7. Nondisplaced fracture through the inferior portion of the left pelvic bone extending to the left acetabulum, appears subacute Dictated and Authenticated by: Komal Chaudhry MD. Orderin Julio Araya MD
--- NOTE | 2025-05-14 00:44 | DI.[facility]_ITS ---
PROCEDURE INFORMATION: Exam: CT Head Without Contrast Exam date and time: 05/13/2025 11:34 PM Age: 64 years old Clinical indication: Altered mental status/memory loss; Other: AMS TECHNIQUE: Imaging protocol: Computed tomography of the head without contrast. COMPARISON: CT HEAD WO 01/14/2025 12:38 AM FINDINGS: Brain: Fairly significant cortical volume loss noted. Minimal scattered areas of decreased attenuation in the deep periventricular white matter consistent with small vessel ischemic change. No evidence for acute intracranial hemorrhage. Cerebral ventricles: No ventriculomegaly. Paranasal sinuses: Air-fluid level noted in the right maxillary sinus with fairly significant mucoperiosteal thickening in the left sphenoid sinus. Mastoid air cells: Visualized mastoid air cells are well aerated. Bones: Unremarkable. No acute fracture. Soft tissues: Unremarkable. IMPRESSION: Senescent changes noted. No acute intracranial abnormality. PROCEDURE INFORMATION: Exam: CT Cervical Spine Without Contrast Exam date and time: 05/13/2025 11:34 PM Age: 64 years old Clinical indication: Altered mental status/memory loss; Other: AMS TECHNIQUE: Imaging protocol: Computed tomography of the cervical spine without contrast. COMPARISON: CT HEAD WO 01/14/2025 12:38 AM FINDINGS: Bones: No acute fracture. Normal alignment. No significant disc bulge or herniation. No severe spinal canal stenosis. No significant neural foraminal narrowing. Lungs: Lung apices are normal. Soft tissues: Unremarkable. IMPRESSION: No evidence for acute posttraumatic abnormality. Dictated and Authenticated by: Marissa Thurston MD. Orderin Julio Araya MD
[2025-05-14] MEDS: Furosemide 40 MG/4 ML VIAL IVP ×3 (01:05→16:26)
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
[2025-05-14 01:33] LABS: Troponin I 12 ng/L (<or=51)
[2025-05-14 06:39] LABS: Abs Immature Grans 0.03 10^3/uL (0.0-0.06); HCT 28.5 % (36.0-46.0); HGB 7.1 g/dL (11.2-15.7); Immature Grans % 0.4 %; MCH 18.1 pg (27.0-33.0); MCHC 24.9 % (32.0-36.0); MCV 73 fL (80-95); MPV 9.8 fL (8.0-11.0); Platelet Count 396 10^3/uL (130-400); RBC 3.92 10^6/uL (3.93-5.22); RDW 19.5 % (11.7-14.6); RDW-SD 50.4 fL; WBC 7.58 10^3/uL (4.4-10.8)
[2025-05-14 07:11] LABS: Ferritin 22 ng/mL (8-252)
[2025-05-14 07:25] LABS: ALT 12 U/L (14-59); AST 11 U/L (15-37); Albumin 2.5 g/dL (3.4-5.0); Alkaline Phosphatase 105 U/L (46-116); Anion Gap 4.7 mmol/L (3-11); BUN 11 mg/dL (7-18); Bilirubin, Total 0.4 mg/dL (0.2-1.0); CO2 34.3 mmol/L (21.0-32.0); Calcium 8.6 mg/dL (8.5-10.1); Chloride 105 mmol/L (98-107); Estimated GFR 111.83 (mL/min/1.73m2); Glucose 98 mg/dL (74-106); Magnesium 2.1 mg/dL (1.8-2.4); Potassium 3.4 mmol/L (3.5-5.1); Sodium 144 mmol/L (136-145); Total Protein 5.6 g/dL (6.4-8.2)
[2025-05-14 07:48] LABS: Anisocytosis 2+; Hypochromasia 3+
[2025-05-14 07:49] LABS: Microcytosis 2+; Ovalocytes 2+; Polychromasia Present
[2025-05-14 07:50] LABS: Stomatocytes 2+
--- NOTE | 2025-05-14 08:00 | DI.US_ITS ---
APPROVED REPORT EXAM: Comprehensive 2D, Doppler, and color-flow Echocardiogram Patient Location: In-Patient Room/Bed: [facility] Police Surgeon: Marycarmen Kulkarni RDCS (AE) Indications: Pulmonary edema and ansarca, Elevated BNP, Limited follow up exam Conclusion Mild concentric left ventricular hypertrophy. Ejection fraction is 60%. Wall motion appears normal Normal right ventricular size and function Left atrium is enlarged. Right atrial size appears normal There is no significant valvular disease Wall motion Left Ventricle Beat to beat variation throughout exam. The overall left ventricular systolic function appears normal. Limited follow up echo.
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
[2025-05-14] MEDS: Enoxaparin 40 MG/0.4 ML SYR SC ×2 (08:45→20:06)
[2025-05-14] MEDS: Metoprolol CR 25 MG TABCR 12.5 MG PO (08:45)
[2025-05-14] MEDS: ARIPiprazole 5 MG TAB 40 MG PO (08:45)
[2025-05-14] MEDS: DULoxetine 30 MG CAP 60 MG PO (08:46)
[2025-05-14 08:51] LABS: Iron 14 ug/dL (50-170); Total Iron Binding Capacity 361 ug/dL (250-450); Transferrin Sat 4 % (15-50)
[2025-05-14 09:25] LABS: COVID-19 PCR Negative (Negative); RSV PCR Negative (Negative)
[2025-05-14] MEDS: SODIUM FER. GLUC./SUC. 125 MG in Normal Saline 100 ML 110 MG IVPB (09:48)
--- NOTE | 2025-05-14 11:45 | PDOC.ANES ---
Date of service: 05/14/25 Time of Service: 11:46 Anesthesia Note Report Anesthesia Note: requested to evaluate for the appropriateness of regional anesthesia for rib fractures. Brief discussion on the risks and benefits of regional anesthesia. She states that she is not interested. Her pain is not much worse than it always is. She was encouraged to reach out if she changes her mind.
[2025-05-14] MEDS: Normal Saline Flush 10 ML SYR ×3 (12:32→20:08)
[2025-05-14] MEDS: oxyCODONE 10 MG TAB PO ×2 (13:07→21:47)
--- NOTE | 2025-05-14 14:08 | PT.INNT ---
PT Notes Visit Reasons: Opioid Overdose PT consult on hold, awaiting weight bearing recommendations. Will attempt tomorrow if appropriate.
--- NOTE | 2025-05-14 17:02 | W.PC.ACHO ---
Registration Status: ADM IN Primary Language: Preferred Language: Greenlandic ED Information & Data Chief Complaint AMS/LOC 05/13/25 22:50 Triage Note LKN 1700 today. PT found 05/13/25 21:46 with decreased level of responsiveness in her home. EMS deployed narcan in field . Medical / Surgical History (Last Reviewed 01/14/25 @ 02:11 by Rom Carrillo) Gastric ulcer (08/18/05) Depression (07/18/05) Gastroparesis (07/18/05) Morbid obesity Chronic right-sided lumbar radiculopathy Osteoporosis Type 2 diabetes mellitus Essential hypertension History of fractured rib COPD (chronic obstructive pulmonary disease) (Last Reviewed 01/14/25 @ 02:11 by Rom Carrillo) History of ankle surgery History of back surgery (10/17/17) ULCER/STOMACH SURGERY Replacement of total knee joint (04/17/17) Total replacement of hip KNEE SURGERY EGD - MAC Cholecystectomy (~06/2013) Most Recent Vital Signs Temperature 37.2 C 05/14/25 15:05 Temperature Source Temporal Artery Scan 05/14/25 15:05 Pulse 76 05/14/25 15:05 Pulse 118 H 05/14/25 14:01 Respiratory Rate 15 05/14/25 15:05 Respiratory Effort Labored 05/14/25 02:20 Respiratory Depth Shallow 05/14/25 02:20 Respiratory Pattern Irregular 05/14/25 02:20 Blood Pressure 97/57 L 05/14/25 15:05 Blood Pressure Mean 70 05/14/25 15:05 Blood Pressure Position Sitting 05/13/25 21:51 Pulse Oximetry 86 L 05/14/25 15:05 Oxygen Delivery Method Room Air 05/14/25 15:05 Oxygen Flow Rate 0 05/14/25 15:05 Pain Level 10 05/14/25 13:07 Comment 02 restarted on 2LNC. pt desats to 80s on RA 05/14/25 15:05 Allergies No Known Drug Allergies Allergy (Unknown, Verified 05/13/25 21:52) none Active Medications Generic Name Dose Route Start Last Admin Trade Name Freq PRN Reason Stop Dose Admin Aripiprazole 40 mg 05/14/25 08:30 05/14/25 08:45 Aripiprazole 5 Mg Tab PO 40 mg DAILY TAINA Administration Duloxetine HCl 60 mg 05/14/25 08:30 05/14/25 08:46 Duloxetine 30 Mg Cap PO 60 mg DAILY TAINA Administration Furosemide 40 mg 05/14/25 08:00 05/14/25 16:26 Furosemide 40 Mg/4 Ml Vial IVP 05/14/25 21:00 40 mg BID@0800,1600 TAINA Administration Ferric Sodium Gluconate 110 mls @ 110 mls/hr 05/14/25 08:00 05/14/25 10:48 Complex 125 mg/ Sodium IVPB 05/18/25 12:00 Infused Chloride DAILY@0800 TAINA Infusion Metoprolol Succinate 12.5 mg 05/14/25 08:30 05/14/25 08:45 Metoprolol Cr 25 Mg Tabcr PO 12.5 mg DAILY TAINA Administration Oxycodone HCl 10 mg 05/14/25 12:38 05/14/25 13:07 Oxycodone 10 Mg Tab PO 10 mg Q8H PRN PRN Administration IV IV Catheter Type [Left Wrist] Saline Lock IV Catheter Type [Right Saline Lock Antecubital] IV Catheter Gauge [Left Wrist] 20 IV Catheter Gauge [Right 18 Antecubital] Diet Orders Category Date Time Status Heart Healthy Eating [DIET] Nutrition 05/14/25 Dinner Active Diagnostics 05/14/25 05/14/25 05/14/25 Range/Units 08:40 05:42 01:13 WBC 7.58 (4.4-10.8) 10^3/uL RBC 3.92 L (3.93-5.22) 10^6/uL Hgb 7.1 L (11.2-15.7) g/dL Hct 28.5 L (36.0-46.0) % MCV 73 L (80-95) fL MCH 18.1 L (27.0-33.0) pg MCHC 24.9 L (32.0-36.0) % RDW 19.5 H (11.7-14.6) % Plt Count 396 (130-400) 10^3/uL MPV 9.8 (8.0-11.0) fL Immature Gran % 0.4 % Neutrophils % 80.3 % Lymphocytes % 9.1 % Monocytes % 6.5 % Eosinophils % 3.2 % Basophils % 0.5 % Nucleated RBC % 0.0 (0.0-0.3) % Absolute Neutrophils 6.09 (1.2-6.7) 10^3/uL Absolute Lymphocytes 0.69 L (1.2-3.4) 10^3/uL Absolute Monocytes 0.49 (0.1-0.8) 10^3/uL Absolute Eosinophils 0.24 (0.0-0.7) 10^3/uL Absolute Basophils 0.04 (0.0-0.2) 10^3/uL RBC Morphology See Below Polychromasia Present Hypochromasia 3+ Anisocytosis 2+ Microcytosis 2+ Ovalocytes 2+ Stomatocytes 2+ PT (9.1-11.1) sec INR (0.9-1.1) VBG pH (7.31-7.41) VBG pCO2 (41-51) mmHg VBG pO2 mmHg VBG HCO3 (23-28) mmol/L VBG Total CO2 (24-29) mmol/L VBG O2 Saturation % VBG Base Excess (-2-3) mmol/L VBG Lactate (<or=2.0) mmol/L Sodium 144 (136-145) mmol/L Potassium 3.4 L (3.5-5.1) mmol/L Chloride 105 (98-107) mmol/L Carbon Dioxide 34.3 H (21.0-32.0) mmol/L Anion Gap 4.7 (3-11) mmol/L BUN 11 (7-18) mg/dL Creatinine 0.4 L (0.55-1.02) mg/dL Est GFR (CKD-EPI 2020) 111.83 (mL/min/1.73m2) Glucose 98 (74-106) mg/dL Calcium 8.6 (8.5-10.1) mg/dL Magnesium 2.1 (1.8-2.4) mg/dL Iron 14 L (50-170) ug/dL TIBC 361 (250-450) ug/dL Transferrin % Sat 4 L (15-50) % Ferritin 22 (8-252) ng/mL Total Bilirubin 0.4 (0.2-1.0) mg/dL AST 11 L (15-37) U/L ALT 12 L (14-59) U/L Alkaline Phosphatase 105 (46-116) U/L Ammonia (11-32) umol/L Troponin I 12 (<or=51) ng/L NT-Pro-B Natriuret Pep (<300) pg/mL Total Protein 5.6 L (6.4-8.2) g/dL Albumin 2.5 L (3.4-5.0) g/dL TSH (0.36-3.74) uIU/mL Urine Color (Yellow) Urine Clarity (Clear) Urine pH (5-8) Ur Specific [place] (1.005-1.025) Urine Protein (Neg-Trace) mg/dL Urine Ketones (Negative) mg/dL Urine Blood (Negative) Urine Nitrite (Negative) Urine Bilirubin (Negative) Urine Urobilinogen (Up to 0.2) mg/dL Ur Leukocyte Esterase (Negative) Urine Glucose (Negative) mg/dL Urine Opiates Screen (Negative) Urine Methadone Screen (Negative) Ur Barbiturates Screen (Negative) Ur Tricyclics Screen (Negative) Ur Amphetamines Screen (Negative) U Benzodiazepines Scrn (Negative) Urine Cocaine Screen (Negative) Ur THC Screen (Negative) Ethyl Alcohol (<10) mg/dL COVID-19 Source Nasopharynx SARS-CoV-2 (PCR) Negative (Negative) Influenza Type A (PCR) Negative (Negative) Influenza Type B (PCR) Negative (Negative) RSV (PCR) Negative (Negative) 05/13/25 05/13/25 05/13/25 Range/Units 23:19 22:41 22:40 WBC (4.4-10.8) 10^3/uL RBC (3.93-5.22) 10^6/uL Hgb (11.2-15.7) g/dL Hct (36.0-46.0) % MCV (80-95) fL MCH (27.0-33.0) pg MCHC (32.0-36.0) % RDW (11.7-14.6) % Plt Count (130-400) 10^3/uL MPV (8.0-11.0) fL Immature Gran % % Neutrophils % % Lymphocytes % % Monocytes % % Eosinophils % % Basophils % % Nucleated RBC % (0.0-0.3) % Absolute Neutrophils (1.2-6.7) 10^3/uL Absolute Lymphocytes (1.2-3.4) 10^3/uL Absolute Monocytes (0.1-0.8) 10^3/uL Absolute Eosinophils (0.0-0.7) 10^3/uL Absolute Basophils (0.0-0.2) 10^3/uL RBC Morphology Polychromasia Hypochromasia Anisocytosis Microcytosis Ovalocytes Stomatocytes PT (9.1-11.1) sec INR (0.9-1.1) VBG pH 7.36 (7.31-7.41) VBG pCO2 53 H (41-51) mmHg VBG pO2 56 mmHg VBG HCO3 30 H (23-28) mmol/L VBG Total CO2 29 (24-29) mmol/L VBG O2 Saturation 88 % VBG Base Excess 4 H (-2-3) mmol/L VBG Lactate (<or=2.0) mmol/L Sodium (136-145) mmol/L Potassium (3.5-5.1) mmol/L Chloride (98-107) mmol/L Carbon Dioxide (21.0-32.0) mmol/L Anion Gap (3-11) mmol/L BUN (7-18) mg/dL Creatinine (0.55-1.02) mg/dL Est GFR (CKD-EPI 2020) (mL/min/1.73m2) Glucose (74-106) mg/dL Calcium (8.5-10.1) mg/dL Magnesium (1.8-2.4) mg/dL Iron (50-170) ug/dL TIBC (250-450) ug/dL Transferrin % Sat (15-50) % Ferritin (8-252) ng/mL Total Bilirubin (0.2-1.0) mg/dL AST (15-37) U/L ALT (14-59) U/L Alkaline Phosphatase (46-116) U/L Ammonia 12 (11-32) umol/L Troponin I 11 (<or=51) ng/L NT-Pro-B Natriuret Pep (<300) pg/mL Total Protein (6.4-8.2) g/dL Albumin (3.4-5.0) g/dL TSH (0.36-3.74) uIU/mL Urine Color Yellow (Yellow) Urine Clarity Clear (Clear) Urine pH 6.5 (5-8) Ur Specific [place] 1.015 (1.005-1.025) Urine Protein Negative (Neg-Trace) mg/dL Urine Ketones Negative (Negative) mg/dL Urine Blood Negative (Negative) Urine Nitrite Negative (Negative) Urine Bilirubin Negative (Negative) Urine Urobilinogen 1.0 H (Up to 0.2) mg/dL Ur Leukocyte Esterase Negative (Negative) Urine Glucose Negative (Negative) mg/dL Urine Opiates Screen Positive A (Negative) Urine Methadone Screen Positive A (Negative) Ur Barbiturates Screen Negative (Negative) Ur Tricyclics Screen Positive A (Negative) Ur Amphetamines Screen Negative (Negative) U Benzodiazepines Scrn Negative (Negative) Urine Cocaine Screen Negative (Negative) Ur THC Screen Negative (Negative) Ethyl Alcohol (<10) mg/dL COVID-19 Source SARS-CoV-2 (PCR) (Negative) Influenza Type A (PCR) (Negative) Influenza Type B (PCR) (Negative) RSV (PCR) (Negative) 05/13/25 Range/Units 21:55 WBC 7.86 (4.4-10.8) 10^3/uL RBC 4.39 (3.93-5.22) 10^6/uL Hgb 7.8 L (11.2-15.7) g/dL Hct 32.8 L (36.0-46.0) % MCV 75 L (80-95) fL MCH 17.8 L (27.0-33.0) pg MCHC 23.8 L (32.0-36.0) % RDW 19.3 H (11.7-14.6) % Plt Count 423 H (130-400) 10^3/uL MPV 9.6 (8.0-11.0) fL Immature Gran % 0.6 % Neutrophils % 71.3 % Lymphocytes % 13.7 % Monocytes % 7.1 % Eosinophils % 6.7 % Basophils % 0.6 % Nucleated RBC % 0.0 (0.0-0.3) % Absolute Neutrophils 5.59 (1.2-6.7) 10^3/uL Absolute Lymphocytes 1.08 L (1.2-3.4) 10^3/uL Absolute Monocytes 0.56 (0.1-0.8) 10^3/uL Absolute Eosinophils 0.53 (0.0-0.7) 10^3/uL Absolute Basophils 0.05 (0.0-0.2) 10^3/uL RBC Morphology See Below Polychromasia Hypochromasia 2+ Anisocytosis Microcytosis 2+ Ovalocytes Stomatocytes PT 10.2 (9.1-11.1) sec INR 1.0 (0.9-1.1) VBG pH 7.28 L (7.31-7.41) VBG pCO2 71 H* (41-51) mmHg VBG pO2 31 mmHg VBG HCO3 33 H (23-28) mmol/L VBG Total CO2 33 H (24-29) mmol/L VBG O2 Saturation 47 % VBG Base Excess 6 H (-2-3) mmol/L VBG Lactate 1.4 (<or=2.0) mmol/L Sodium 142 (136-145) mmol/L Potassium 4.2 (3.5-5.1) mmol/L Chloride 105 (98-107) mmol/L Carbon Dioxide 34.6 H (21.0-32.0) mmol/L Anion Gap 2.4 L (3-11) mmol/L BUN 14 (7-18) mg/dL Creatinine 0.6 (0.55-1.02) mg/dL Est GFR (CKD-EPI 2020) 101.42 (mL/min/1.73m2) Glucose 116 H (74-106) mg/dL Calcium 9.0 (8.5-10.1) mg/dL Magnesium 2.2 (1.8-2.4) mg/dL Iron (50-170) ug/dL TIBC (250-450) ug/dL Transferrin % Sat (15-50) % Ferritin (8-252) ng/mL Total Bilirubin 0.4 (0.2-1.0) mg/dL AST 11 L (15-37) U/L ALT 16 (14-59) U/L Alkaline Phosphatase 119 H (46-116) U/L Ammonia (11-32) umol/L Troponin I 14 (<or=51) ng/L NT-Pro-B Natriuret Pep 4309 H (<300) pg/mL Total Protein 6.4 (6.4-8.2) g/dL Albumin 2.9 L (3.4-5.0) g/dL TSH 2.13 (0.36-3.74) uIU/mL Urine Color (Yellow) Urine Clarity (Clear) Urine pH (5-8) Ur Specific [place] (1.005-1.025) Urine Protein (Neg-Trace) mg/dL Urine Ketones (Negative) mg/dL Urine Blood (Negative) Urine Nitrite (Negative) Urine Bilirubin (Negative) Urine Urobilinogen (Up to 0.2) mg/dL Ur Leukocyte Esterase (Negative) Urine Glucose (Negative) mg/dL Urine Opiates Screen (Negative) Urine Methadone Screen (Negative) Ur Barbiturates Screen (Negative) Ur Tricyclics Screen (Negative) Ur Amphetamines Screen (Negative) U Benzodiazepines Scrn (Negative) Urine Cocaine Screen (Negative) Ur THC Screen (Negative) Ethyl Alcohol < 3.0 (<10) mg/dL COVID-19 Source SARS-CoV-2 (PCR) (Negative) Influenza Type A (PCR) (Negative) Influenza Type B (PCR) (Negative) RSV (PCR) (Negative) [id number] Documentation Fingerstick Glucose Start: 05/13/25 22:09 Freq: .Stat Status: Active Protocol: Activity Type Activity Date Activity User E-sign Co-sign Detail Recorded Client Recorded Date Recorded By Document 05/13/25 23:27 LB ER01 05/13/25 23:27 LB Intake and Output - 24 Hour Total 05/13/25 21:35 thru 05/14/25 14:27 Intake Total 610 Output Total 4300 Balance -3690 Weight 115.8 kg Intake: IV 510 Oral 100 Output: Urine 4300 Other: Urine Color Yellow Urine Appearance Clear Comment paige catheter in place Urinary Catheter Urinary Catheter Date of 05/13/25 Insertion [Urethral (Paige)] Time of insertion [Urethral ( 22:19 Paige)] Falls Risk Assessment History of Falls Previous History 05/14/25 02:20 Contributing Factors Confusion,Unstable, 05/14/25 02:20 Impairments,Medications Ambulatory Aids Uses ambulatory device + 05/14/25 02:20 Tubes/Lines With any additional score 05/14/25 02:20 Gait Evaluation W/any additional score 05/14/25 02:20 Cognition Cognitive impairment 05/14/25 02:20 Fall Total Score 112 05/14/25 02:20 Level of Risk Maximum Risk 05/14/25 02:20 Restraint Information Behavior Requiring Restraints/ Harm to Patient Seclusion Date of Initiation 05/13/25 Time Restraints were Initiated 22:34 Note restraints are no longer needed, pt not agitated and follows commands Criteria for Restraint Removal No longer threat to self Date Restraints Removed 05/14/25 Time Restraints Removed 07:00 Was Restraint Order Yes Discontinued If no,why was the order not Received in report that pt has not needed discontinued? restraints for a few hours. Pt arrived without restraints on. Restraint order not discontinued due to pt previously having moments of thrashing & attempting to pull at lines. Pt still confused when awake and restraints may need to be re-initiated. Problems (Last Reviewed 01/14/25 @ 02:11 by Rom Carrillo) Pulmonary edema (Acute) Acute and chronic respiratory failure with hypercapnia (Acute) Abdominal hernia without obstruction and without gangrene (Chronic) Chronic atrial fibrillation (Chronic) Anasarca (Acute) Opioid overdose (Acute) Opioid use disorder, severe, on maintenance therapy, dependence (Acute) Closed fracture of left pelvis (Acute) Multiple closed fractures of ribs of right side (Acute) Ground-level fall (Acute) Cellulitis of right leg (Chronic) Microcytic anemia (Chronic) Lumbar spinal stenosis (Chronic) v v v v v v v v v Sending and/or Receiving Nurses: Please use comment section below to note any information pertinent to the patient hand-off not included above. Information / Comments: Pt [facility] hovermat [facility], and then transported into room. hovermat remains under patient for boosting. Report received from:Ana Lomas, STAFF SONOGRAPHER.
[2025-05-14] MEDS: Docusate Sodium 100 MG CAP PO (20:04)
[2025-05-14] MEDS: Doxepin 50 MG CAP 200 MG PO (20:05)
[2025-05-14] MEDS: MORPHine 2 MG/ML SYR IVP (20:05)
[2025-05-14] MEDS: Milk of Magnesia 30 ML CUP PO (20:05)
[2025-05-14] MEDS: Ferrous Sulfate 325 MG TAB PO (20:06)
[2025-05-15] VITALS (10 sets, daily range): BP systolic 93–124; BP diastolic 56–81; PULSE 60–90; RESP 16–21; TEMP 36–37.1; O2SAT 87–93
[2025-05-15] MEDS: MORPHine 2 MG/ML SYR IVP ×5 (01:08→20:31)
[2025-05-15 07:08] LABS: Abs Immature Grans 0.03 10^3/uL (0.0-0.06); HCT 31.1 % (36.0-46.0); HGB 7.5 g/dL (11.2-15.7); Immature Grans % 0.4 %; MCH 17.6 pg (27.0-33.0); MCHC 24.1 % (32.0-36.0); MCV 73 fL (80-95); MPV 9.3 fL (8.0-11.0); Platelet Count 390 10^3/uL (130-400); RBC 4.25 10^6/uL (3.93-5.22); RDW 19.8 % (11.7-14.6); RDW-SD 51.1 fL; WBC 8.10 10^3/uL (4.4-10.8)
[2025-05-15 07:24] LABS: ALT 13 U/L (14-59); AST 11 U/L (15-37); Albumin 2.6 g/dL (3.4-5.0); Alkaline Phosphatase 108 U/L (46-116); Anion Gap 3.5 mmol/L (3-11); BUN 14 mg/dL (7-18); Bilirubin, Total 0.3 mg/dL (0.2-1.0); CO2 36.5 mmol/L (21.0-32.0); Calcium 8.8 mg/dL (8.5-10.1); Chloride 103 mmol/L (98-107); Estimated GFR 101.42 (mL/min/1.73m2); Glucose 99 mg/dL (74-106); Magnesium 2.3 mg/dL (1.8-2.4); Potassium 3.5 mmol/L (3.5-5.1); Sodium 143 mmol/L (136-145); Total Protein 5.9 g/dL (6.4-8.2)
[2025-05-15] MEDS: ARIPiprazole 5 MG TAB 40 MG PO (07:36)
[2025-05-15] MEDS: Metoprolol CR 25 MG TABCR 12.5 MG PO (07:37)
[2025-05-15] MEDS: Ferrous Sulfate 325 MG TAB PO ×2 (07:37→19:45)
[2025-05-15] MEDS: DULoxetine 30 MG CAP 60 MG PO (07:37)
[2025-05-15 07:38] LABS: Hypochromasia 1+; Microcytosis 2+; Polychromasia Present
[2025-05-15] MEDS: Enoxaparin 40 MG/0.4 ML SYR SC ×2 (07:38→19:46)
[2025-05-15 07:40] LABS: Poikilocytes 1+
[2025-05-15] MEDS: Albuterol/Ipratropium 3 ML UPD VIAL UPD (07:44)
[2025-05-15] MEDS: SODIUM FER. GLUC./SUC. 125 MG in Normal Saline 100 ML 110 MG IVPB (08:26)
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
[2025-05-15] MEDS: oxyCODONE 10 MG TAB PO ×2 (09:13→18:06)
--- NOTE | 2025-05-15 09:53 | IN_ITS ---
Date of service: 05/15/25 Time of Service: 09:35 PT Notes Visit Reasons: Opioid Overdose Inpatient Physical Therapy Evaluation I certify the need for these services as being medically necessary and skilled as furnished under this plan of treatment while under my care. Please sign and return within 14 days if you agree with the plan of care listed below.? Thank you for this referral! ? Referring Physician? Date Referring Doctor:? Bienvenido Putnam PT Orders: PT CONSULT for exacerbation of chronic condition Precautions: rib fractures, WBAT left LE for pelvic fx per Dr. Jones today Patient Profile/Admitting Diagnosis:? The patient is a 64 yo female adm on 05/14/25 for opiod overdose, acute and chronic respiratory failure with hypercapnia, pulmonary edema, anasarca, multiple falls with new facial trauma, new and old right rib fractures, and left pelvic fracture, multiple closed fractures of ribs of right side (acute right posterolateral rib fractures 4 t hrough 7,subacute right posterolateral rib fractures 1-2 and 10, Left pelvic fracture, nondisplaced, possibly subacute, extending into acetabulum, Opioid use disorder, severe, on maintenance therapy, Microcytic anemia, Cellulitis of right leg with Chronic wound, previously on chronic bactrim, Chronic atrial fibrillation, Lumbar spinal stenosis, Depression,and Abdominal hernia without obstruction and without gangrene Past Medical History: All Active Problems (Updated 05/14/25 @ 01:48 by Bienvenido Putnam MD) Pulmonary edema (Acute) Acute and chronic respiratory failure with hypercapnia (Acute) Abdominal hernia without obstruction and without gangrene (Chronic) Chronic atrial fibrillation (Chronic) Anasarca (Acute) Opioid overdose (Acute) Opioid use disorder, severe, on maintenance therapy, dependence (Acute) Closed fracture of left pelvis (Acute) Multiple closed fractures of ribs of right side (Acute) Ground-level fall (Acute) Viral URI (Acute) Leg wound, right (Acute) Low BP (Acute) Cellulitis of right leg (Chronic) New onset a-fib (Acute) Bilateral leg edema (Chronic) w stasis dermatitisRight leg weakness (Chronic) Frequent falls (Chronic) Microcytic anemia (Chronic) Ambulatory dysfunction (Acute) Lumbar spinal stenosis (Chronic) Primary osteoarthritis of left knee (Chronic) Transaminase or LDH elevation (Chronic) Tobacco use disorder (Chronic) Sleep disturbance (Chronic 07/18/05) Sedative, hypnotic or anxiolytic abuse (Chronic) [facility]; ? GRAND MAL SEIZURE, SECONDARY TO BENZO WITHDRAWAL 2006; one episode without any recurrence; occurred due to anxiety prior to incarceration Anxiety (Chronic 07/18/05) Medical History Gastric ulcer (08/18/05) 08/24 EGD: DUODENITIS; REACTIVE GASTROPATHY; ANTRAL ULCERATION; HYPERPLASTIC SQUAMOUS MUCOSA; NEG H. PYLORI Depression (07/18/05) history of 7 psych admissions 2009 Gastroparesis (07/18/05) Morbid obesity Chronic right-sided lumbar radiculopathy Osteoporosis Type 2 diabetes mellitus Essential hypertension History of [place] [facility] [place] 5th [place], anterior right rib 5&6. -hbCOPD (chronic obstructive pulmonary disease) Surgical History History of ankle surgery History of back surgery (10/17/17) L5-S1 facetectomy and lumbar body fusion [place] UVN [place]ER[place] [place] [facility] of [facility] RIGHT/ [place] of [place] [facility] [place] HORSE ACCIDENTKNEE SURGERY 10/2014 LEFT KNEE; 01/2015 RIGHT KNEEEGD - MAC Cholecystectomy (~06/2013) Current every day Tobacco Type: cigarettes Medications: See chart. Patient reports she normally takes methadone and that her pain is currently not managed secondary to the fact that she is not currently receiving her methadone Social History/Home Situation: Patient reports she lives in [place] with her mom. Reports she is w/c bound, but is normally able to perform her transfers independently. Reports she normally stands with her walker to cook. Subjective: You don't understand how bad the pain is. I want to go home by tomorrow at the latest. Objective: Full status unable to be assessed secondary to agitation and patient requesting to be left alone. Recommend ankle pumps, quad sets, heel slides, rolling in bed, OOB as tolerated Issued leg carbon sequestration plant manager to assist with right LE ROM Mental Status: Patient is alert and oriented. Pain: You don't understand how bad the pain is. pain in her low back, left hip and right lower leg Vital Signs: per nursing ROM/Strength: Upper extremities: able to move bilateral LE against gravity Lower extremities: I cannot move that leg very well (right). Holding right LE in flexion and ER. Is able to place in a more neutral position with the assist of a leg carbon sequestration plant manager. Issued one today. Reports she usually uses one at home. Sensation: No reports of numbness/tingling Soft tissue/edema: right facial brusing. Multiple dressings on right LE with visible drainage on the dressings. Bed Mobility: refused even trying rolling side to side in bed. discussed trying this for alternative positions. refused trying to sit at the edge of the bed. Educated on loss strength with lack of movement/use Transfers: refused. Aylin RN reports three heavy assist to commode last night for a BM Gait: Does not normally ambulate Balance: not assessed [facility] 6 clicks Basic Mobility Inpatient Short Form: Raw Score:10? CMS Score:76.75% Informed Consent/Education:? Patient instructed in purpose of PT consult and plan of care and is agreeable Assessment:? Patient is a? 64 yo female adm on 05/14/25 for opiod overdose, acute and chronic respiratory failure with hypercapnia, pulmonary edema, anasarca, multiple falls with new facial trauma, new and old right rib fractures, and left pelvic fracture, multiple closed fractures of ribs of right side (acute right posterolateral rib fractures 4 through 7,subacute right posterolateral rib fractures 1-2 and 10, Left pelvic fracture, nondisplaced, possibly subacute, extending into acetabulum, Opioid use disorder, severe, on maintenance therapy, Microcytic anemia, Cellulitis of right leg with Chronic wound, previously on chronic bactrim, Chronic atrial fibrillation, Lumbar spinal stenosis, Depression,and Abdominal hernia without obstruction and without gangrene.? Patient presents with low back, left hip and right leg pain, decreased strength, decreased functional mobility, decreased balance and difficulty with transfers. The patient would benefit from skilled inpatient services to improve these impairments to maximize function and safety. Patient is assessed as:? Low 04097?? complexity based on the following: History: overweight, disagreeable to all activity Examination: see above Presentation: Stable and uncomplicated? Decision Making:? Low (0 history, 1-2 exam, stable/predictable, easy 20) Physical Therapy Goals: 1 week Able to get in/out of bed with supervision only. Able to perform sit to/from stand with supervision only. Able to transfer bed to chair with a walker with supervision only. Equipment needs met. Independent with home exercise program Plan of Care/Treatment Plan: 1x/day, 7 days/week x 1 week. Plan of care has been reviewed with the [employer] providing the service under Physical Therapy direction. Initiate Physical Therapy intervention for strengthening, bed mobility, transfers, gait, stairs, balance training, use of assistive device. DISCHARGE RECOMMENDATIONS: HHPT, HHRN Informed consent Prior to the start and throughout the course of the examination and treatment, patient was made aware of the specifics and purpose of the physical assessment and treatment procedures. Appropriate draping procedures were utilized to protect modesty where applicable. Billing Charges: Treatment Units Time Duration Manual Therapy(18607) Hands-on techniques to modulate pain increase joint range of motion reduce or eliminate soft tissue swelling, inflammation, or restriction facilitate relaxation and improve contractile and non-contractile tissue extensibility ? ? Therapeutic Procedures (27564) Instruction in therapeutic exercises to develop strength and endurance, range of motion and flexibility. HEP instruction and review: Provided skilled instruction in proper exercise performance: Provided skilled manual cues to facilitate proper muscle recruitment and/or movement pattern 1 9 Neurological Re-Education(28202) To improve balance, coordination, kinesthetic and proprioceptive sensations. ? ? Ultrasound(48727) To promote healing. ? ? Gait Training(96485) ? ? Therapeutic Activity(15560) Instruction in dynamic activities with one on one patient contact by the provider to improve functional performance as follows: ? ? Self Care Training(65931) ? ? E-Stim (Attended)(62235) ? ? Low IE(50955) Mod IE(47458) ? ? High IE(29674) ? ? Time Coded Treatment Time ?1 7 Total Treatment Time ? 16
--- NOTE | 2025-05-15 14:17 | W.PM.PROGNOT ---
Date of Service Date of service: 05/15/25 Time of Service: 14:17 Assessment and Plan Assessment and plan (1) Opioid overdose: Status: Acute Assessment and plan: Narcan-responsive mental status changes with very heavy daily use of narcotics for chronic intractable back pain She needed a narcan dose in the field, and another dose after several hours in the ED Will admit to medicine with cardiac monitoring Anticipate withdrawal, current plan to resume home opioid regimen in the morning 05/15/25 restart methadone (2) Acute and chronic respiratory failure with hypercapnia: Status: Acute Assessment and plan: Reported history of COPD, not on any COPD meds at home Chronic CO2 retention likely due to obesity hypoventilation Good response to duonebs in ED, will continue PRN Continue O2 supplementation to maintain SpO2 88-92% No antibiotics at this time (3) Pulmonary edema: Status: Acute Assessment and plan: With edema and anasarca, in the absence of renal injury, with elevated BNP, new concern for heart failure Starting furosemide 40 IV BID Ordered echocardiogram 05/15/25 Conclusion Mild concentric left ventricular hypertrophy. Ejection fraction is 60%. Wall motion appears normal Normal right ventricular size and function Left atrium is enlarged. Right atrial size appears normal There is no significant valvular disease continue with gently diuresis (4) Anasarca: Status: Acute Assessment and plan: Edema as above, concern for HF (5) Ground-level fall: Status: Acute Assessment and plan: Multiple falls reported in previous ED visits with new facial trauma, new and old right rib fractures, and left pelvic fracture PT when appropriate (6) Multiple closed fractures of ribs of right side: Status: Acute Assessment and plan: Acute right posterolateral rib fractures 4 through 7 Subacute right posterolateral rib fractures 1-2 and 10 Awaiting official read of the CT Consider orthopedic surgery consult, unlikely to need intervention, but with fractures in the majority of the right posterolateral ribs, what is advice for healing/PT? Additional pain for this opioid-dependent patient presents challenges (7) Closed fracture of left pelvis: Status: Acute Assessment and plan: Left pelvic fracture, nondisplaced, possibly subacute, extending into acetabulum Awaiting official read of the CT Consider orthopedic surgery consult, unlikely to need intervention, but of interest is advice on weight bearing status and other guidance for PT 05/15/25 notes reviewed from Ortho, no surgical correction appropriate at this point (8) Opioid use disorder, severe, on maintenance therapy, dependence: Status: Acute Assessment and plan: Per review of COMPUTER SYSTEMS ADMINISTRATOR, she is on 233 MME daily Home regimen: oxycodone 10 TID, methadone 40 daily Will restart these in the morning (9) Microcytic anemia: Status: Chronic Assessment and plan: Acute on chronic with hemoglobin < 8 and MCV < 80 Iron panel pending Iron infusions starting in the AM (10) Cellulitis of right leg: Status: Chronic Assessment and plan: Chronic wound, previously on chronic bactrim Most recent antibiotic was doxycycline per medical record Ceftriaxone and vancomycin given in ED, will discontinue Wound care (11) Chronic atrial fibrillation: Status: Chronic Assessment and plan: Diagnosed during December 2024 hospitalization Anticoagulation deferred due to frequent falls Continue home metoprolol for rate control (12) Lumbar spinal stenosis: Status: Chronic Assessment and plan: Chronic, severe degeneration leading to opioid dependence Poor mobility and frequent falls Requested PT evaluation (13) Depression: Assessment and plan: Chronic Continue aripiprazole, doxepin, duloxetine (14) Abdominal hernia without obstruction and without gangrene: Status: Chronic Assessment and plan: Chronic, not reducible Outpatient followup with general surgery Subjective Subjective Interval history since last seen: Pt agrees to participate with PT tomorrow but does want her methadone restarted Exam Narrative Exam Narrative: heent-bruise right cheek neck-no lad no jvd cv-rrr no mrg abd-sntndbsa paige in place Objective Last Vital Signs Temp 37.0 C 05/15/25 11:16 Pulse 70 05/15/25 11:16 Resp 17 05/15/25 11:16 BP 101/65 05/15/25 11:16 Pulse Ox 93 05/15/25 11:16 Laboratory Results - last 24 hr 05/15/25 06:40 WBC 8.10 RBC 4.25 Hgb 7.5 L Hct 31.1 L MCV 73 L MCH 17.6 L MCHC 24.1 L RDW 19.8 H Plt Count 390 MPV 9.3 Immature Gran % 0.4 Neutrophils % 61.0 Lymphocytes % 21.0 Monocytes % 7.3 Eosinophils % 9.3 Basophils % 1.0 Nucleated RBC % 0.0 Absolute Neutrophils 4.95 Absolute Lymphocytes 1.70 Absolute Monocytes 0.59 Absolute Eosinophils 0.75 H Absolute Basophils 0.08 RBC Morphology See Below Polychromasia Present Hypochromasia 1+ Poikilocytosis 1+ Microcytosis 2+ Sodium 143 Potassium 3.5 Chloride 103 Carbon Dioxide 36.5 H Anion Gap 3.5 BUN 14 Creatinine 0.6 Est GFR (CKD-EPI 2020) 101.42 Glucose 99 Calcium 8.8 Magnesium 2.3 Total Bilirubin 0.3 AST 11 L ALT 13 L Alkaline Phosphatase 108 Total Protein 5.9 L Albumin 2.6 L Time Spent with Patient Time Spent with Patient: 25-34 minutes Time was spent: preparing to see the patient(eg.review tests), obtaining and/or reviewing separately otained hiistory, ordering medications,tests, procedures, referring, communicating with other health acute care assistant, indepentently interpreting results, counseling the patient, care coordination and other
[2025-05-15] MEDS: Doxepin 50 MG CAP 200 MG PO (19:45)
[2025-05-15] MEDS: Methadone 10 MG TAB 20 MG PO (19:45)
[2025-05-15] MEDS: Normal Saline Flush 10 ML SYR IVP (20:34)
[2025-05-16] VITALS (9 sets, daily range): BP systolic 102–132; BP diastolic 73–90; PULSE 58–90; RESP 16–22; TEMP 36.4–36.8; O2SAT 88–94
[2025-05-16] MEDS: Albuterol/Ipratropium 3 ML UPD VIAL UPD ×2 (02:22→03:57)
[2025-05-16] MEDS: MORPHine 2 MG/ML SYR IVP ×2 (06:13→15:25)
[2025-05-16] MEDS: Normal Saline Flush 10 ML SYR IVP ×2 (06:13→19:46)
[2025-05-16 07:13] LABS: Abs Immature Grans 0.03 10^3/uL (0.0-0.06); HCT 30.6 % (36.0-46.0); HGB 7.6 g/dL (11.2-15.7); Immature Grans % 0.4 %; MCH 18.4 pg (27.0-33.0); MCHC 24.8 % (32.0-36.0); MCV 74 fL (80-95); MPV 9.5 fL (8.0-11.0); Platelet Count 393 10^3/uL (130-400); RBC 4.12 10^6/uL (3.93-5.22); RDW 20.3 % (11.7-14.6); RDW-SD 52.6 fL; WBC 7.46 10^3/uL (4.4-10.8)
[2025-05-16 07:29] LABS: ALT 15 U/L (14-59); AST 12 U/L (15-37); Albumin 2.7 g/dL (3.4-5.0); Alkaline Phosphatase 107 U/L (46-116); Anion Gap 5.1 mmol/L (3-11); BUN 12 mg/dL (7-18); Bilirubin, Total 0.3 mg/dL (0.2-1.0); CO2 32.9 mmol/L (21.0-32.0); Calcium 8.8 mg/dL (8.5-10.1); Chloride 103 mmol/L (98-107); Estimated GFR 105.98 (mL/min/1.73m2); Glucose 91 mg/dL (74-106); Magnesium 2.2 mg/dL (1.8-2.4); Potassium 3.4 mmol/L (3.5-5.1); Sodium 141 mmol/L (136-145); Total Protein 6.2 g/dL (6.4-8.2)
[2025-05-16] MEDS: DULoxetine 30 MG CAP 60 MG PO (07:40)
[2025-05-16] MEDS: ARIPiprazole 5 MG TAB 40 MG PO (07:41)
[2025-05-16] MEDS: Metoprolol CR 25 MG TABCR 12.5 MG PO (07:42)
[2025-05-16] MEDS: Enoxaparin 40 MG/0.4 ML SYR SC ×2 (07:42→19:46)
[2025-05-16] MEDS: Methadone 10 MG TAB 20 MG PO ×2 (07:42→19:45)
[2025-05-16] MEDS: Ferrous Sulfate 325 MG TAB PO ×2 (07:42→19:45)
[2025-05-16 07:43] LABS: Anisocytosis 2+; Hypochromasia 1+; Microcytosis 2+
--- NOTE | 2025-05-16 10:14 | PTTR_ITS ---
Date of service: 05/16/25 Time of Service: 09:55 PT Notes Visit Reasons: Opioid Overdose SUBJECTIVE: They gave me the methadone...it's the only thing that works for my pain. Reports her worst pain is in her right LE. Also having low back pain. No left hip or rib pain. OBJECTIVE:? Dependent for donning her socks. Reports her mom or aunt will help her with this at home. Treatment: Sit to/from stand 5 times CGA only. Standing 5-10 seconds at walker each time. After performing this, patient stated, That's it. and declined additional activity. Assessment: Patient is a? 64 yo female adm on 05/14/25 for opiod overdose, acute and chronic respiratory failure with hypercapnia, pulmonary edema, anasarca, multiple falls with new facial trauma, new and old right rib fractures, and left pelvic fracture, multiple closed fractures of ribs of right side (acute right posterolateral rib fractures 4 through 7,subacute right posterolateral rib fractures 1-2 and 10, Left pelvic fracture, nondisplaced, possibly subacute, extending into acetabulum, Opioid use disorder, severe, on maintenance therapy, Microcytic anemia, Cellulitis of right leg with Chronic wound, previously on chronic bactrim, Chronic atrial fibrillation, Lumbar spinal stenosis, Depression,and Abdominal hernia without obstruction and without gangrene.? Improved pain and mobility from yesterday. Plan: Continue PT 1-2x/day as patient is agreeable. Billing Charges: Treatment Units Time Duration Manual Therapy (55428) Hands-on techniques to modulate pain increase joint range of motion reduce or eliminate soft tissue swelling, inflammation, or restriction facilitate relaxation and improve contractile and non-contractile tissue extensibility Therapeutic Procedures (68172) Instruction in therapeutic exercises to develop strength and endurance, range of motion and flexibility. HEP instruction and review: Provided skilled instruction in proper exercise performance: Provided skilled manual cues to facilitate proper muscle recruitment and/or movement?pattern: Neurological Re-Education (15083) to improve balance, coordination, kinesthetic and proprioceptive sensations. Ultrasound (79487) to promote healing Gait Training (84465) Therapeutic Activity (71826) instruction in dynamic activitie s with one on one patient contact by the provider to improve functional performance as follows: 1 19 Self Care Training (23651) Time Coded Treatment Minutes: 19 Total Treatment Time: 19
--- NOTE | 2025-05-16 15:14 | W.PM.PROGNOT ---
Date of Service Date of service: 05/16/25 Time of Service: 15:14 Assessment and Plan Assessment and plan (1) Opioid overdose: Status: Acute Assessment and plan: Narcan-responsive mental status changes with very heavy daily use of narcotics for chronic intractable back pain She needed a narcan dose in the field, and another dose after several hours in the ED Will admit to medicine with cardiac monitoring Anticipate withdrawal, current plan to resume home opioid regimen in the morning 05/15/25 restart methadone pt states that she does feel better but does not feel safe at home at this time (2) Acute and chronic respiratory failure with hypercapnia: Status: Acute Assessment and plan: Reported history of COPD, not on any COPD meds at home Chronic CO2 retention likely due to obesity hypoventilation Good response to duonebs in ED, will continue PRN Continue O2 supplementation to maintain SpO2 88-92% No antibiotics at this time (3) Pulmonary edema: Status: Acute Assessment and plan: With edema and anasarca, in the absence of renal injury, with elevated BNP, new concern for heart failure Starting furosemide 40 IV BID Ordered echocardiogram 05/15/25 Conclusion Mild concentric left ventricular hypertrophy. Ejection fraction is 60%. Wall motion appears normal Normal right ventricular size and function Left atrium is enlarged. Right atrial size appears normal There is no significant valvular disease continue with gently diuresis 05/16/25 output since admission appx 5645. CXR on admission with moderate pulmonary edema will recheck cxr tonight in anticipation of dc in am. Will also dc paige and attempt voiding trial (4) Anasarca: Status: Acute Assessment and plan: Edema as above, concern for HF (5) Ground-level fall: Status: Acute Assessment and plan: Multiple falls reported in previous ED visits with new facial trauma, new and old right rib fractures, and left pelvic fracture PT when appropriate (6) Multiple closed fractures of ribs of right side: Status: Acute Assessment and plan: Acute right posterolateral rib fractures 4 through 7 Subacute right posterolateral rib fractures 1-2 and 10 Awaiting official read of the CT Consider orthopedic surgery consult, unlikely to need intervention, but with fractures in the majority of the right posterolateral ribs, what is advice for healing/PT? Additional pain for this opioid-dependent patient presents challenges (7) Closed fracture of left pelvis: Status: Acute Assessment and plan: Left pelvic fracture, nondisplaced, possibly subacute, extending into acetabulum Awaiting official read of the CT Consider orthopedic surgery consult, unlikely to need intervention, but of interest is advice on weight bearing status and other guidance for PT 05/15/25 notes reviewed from Ortho, no surgical correction appropriate at this point (8) Opioid use disorder, severe, on maintenance therapy, dependence: Status: Acute Assessment and plan: Per review of IOS ARCHITECT, she is on 233 MME daily Home regimen: oxycodone 10 TID, methadone 40 daily Will restart these in the morning (9) Microcytic anemia: Status: Chronic Assessment and plan: Acute on chronic with hemoglobin < 8 and MCV < 80 Iron panel pending Iron infusions starting in the AM 05/16/25 cw iron supplementation (10) Cellulitis of right leg: Status: Chronic Assessment and plan: Chronic wound, previously on chronic bactrim Most recent antibiotic was doxycycline per medical record Ceftriaxone and vancomycin given in ED, will discontinue Wound care (11) Chronic atrial fibrillation: Status: Chronic Assessment and plan: Diagnosed during December 2024 hospitalization Anticoagulation deferred due to frequent falls Continue home metoprolol for rate control 05/16/25 noted on 01/13/[address] Thomas (1) New onset a-fib: Status: Acute Assessment and plan: Patient is currently in sinus rhythm. Please note that a beta-xavi is considered first-line choice rather than diltiazem if prevention of recurrent atrial fibrillation is desired. I would not recommend anticoagulation. History of Present Illness Narrative: This is a 64-year-old woman who presented to the emergency room with altered mental status felt possibly to be related to drug ingestion. She was in atrial fibrillation with a modestly elevated heart rate at the time of presentation. She was given intravenous diltiazem. Subsequently she converted to sinus rhythm. Her mental status improved. She is currently on short acting diltiazem She had an echocardiogram performed which showed preserved left ventricular systolic function, no valvular disease. (12) Lumbar spinal stenosis: Status: Chronic Assessment and plan: Chronic, severe degeneration leading to opioid dependence Poor mobility and frequent falls Requested PT evaluation (13) Depression: Assessment and plan: Chronic Continue aripiprazole, doxepin, duloxetine (14) Abdominal hernia without obstruction and without gangrene: Status: Chronic Assessment and plan: Chronic, not reducible Outpatient followup with general surgery Subjective Subjective Interval history since last seen: still with pain. Does not feel safe to dc home as she lives be herself Exam Narrative Exam Narrative: heent-bruise right cheek neck-no lad no jvd cv-rrr no mrg abd-sntndbsa paige in place Objective Last Vital Signs Temp 36.6 C 05/16/25 11:38 Pulse 58 L 05/16/25 11:38 Resp 20 05/16/25 11:38 BP 114/77 05/16/25 11:38 Pulse Ox 92 05/16/25 11:38 Laboratory Results - last 24 hr 05/16/25 06:30 WBC 7.46 RBC 4.12 Hgb 7.6 L Hct 30.6 L MCV 74 L MCH 18.4 L MCHC 24.8 L RDW 20.3 H Plt Count 393 MPV 9.5 Immature Gran % 0.4 Neutrophils % 69.1 Lymphocytes % 11.8 Monocytes % 6.7 Eosinophils % 11.3 Basophils % 0.7 Nucleated RBC % 0.0 Absolute Neutrophils 5.16 Absolute Lymphocytes 0.88 L Absolute Monocytes 0.50 Absolute Eosinophils 0.84 H Absolute Basophils 0.05 RBC Morphology See Below Hypochromasia 1+ Anisocytosis 2+ Microcytosis 2+ Sodium 141 Potassium 3.4 L Chloride 103 Carbon Dioxide 32.9 H Anion Gap 5.1 BUN 12 Creatinine 0.5 L Est GFR (CKD-EPI 2020) 105.98 Glucose 91 Calcium 8.8 Magnesium 2.2 Total Bilirubin 0.3 AST 12 L ALT 15 Alkaline Phosphatase 107 Total Protein 6.2 L Albumin 2.7 L Time Spent with Patient Time Spent with Patient: 25-34 minutes Time was spent: preparing to see the patient(eg.review tests), obtaining and/or reviewing separately otained hiistory, ordering medications,tests, procedures, referring, communicating with other health ocular care technologist, indepentently interpreting results, counseling the patient and care coordination
[2025-05-16] MEDS: Doxepin 50 MG CAP 200 MG PO (19:46)
[2025-05-17 06:40] LABS: Abs Immature Grans 0.04 10^3/uL (0.0-0.06); HCT 31.9 % (36.0-46.0); HGB 7.9 g/dL (11.2-15.7); Immature Grans % 0.5 %; MCH 18.5 pg (27.0-33.0); MCHC 24.8 % (32.0-36.0); MCV 75 fL (80-95); MPV 9.5 fL (8.0-11.0); Platelet Count 394 10^3/uL (130-400); RBC 4.28 10^6/uL (3.93-5.22); RDW 21.2 % (11.7-14.6); RDW-SD 52.5 fL; WBC 7.65 10^3/uL (4.4-10.8)
[2025-05-17 07:17] LABS: Anisocytosis 1+; Hypochromasia 1+; Macrocytosis 1+; Microcytosis 1+; Polychromasia Present
[2025-05-17 07:20] LABS: ALT 13 U/L (14-59); AST 12 U/L (15-37); Albumin 2.9 g/dL (3.4-5.0); Alkaline Phosphatase 114 U/L (46-116); Anion Gap 5.4 mmol/L (3-11); BUN 10 mg/dL (7-18); Bilirubin, Total 0.3 mg/dL (0.2-1.0); CO2 32.6 mmol/L (21.0-32.0); Calcium 9.3 mg/dL (8.5-10.1); Chloride 103 mmol/L (98-107); Estimated GFR 105.98 (mL/min/1.73m2); Glucose 102 mg/dL (74-106); Potassium 3.9 mmol/L (3.5-5.1); Sodium 141 mmol/L (136-145); Total Protein 6.5 g/dL (6.4-8.2)
--- NOTE | 2025-05-17 08:09 | PDOC.CMPRO ---
Date of service: 05/17/25 Time of Service: 08:12 Care Management Progress Note Progress Note Text Progress Note Text: Maryjane was sitting up in bed when CM met with her. She is discharging home today and has already coordinated her own lift assist with [facility], as they routinely help her get in and out of her home, prn. She denies concerns at this time and is calling her mother to come get her. During this hospitalization she was seen by Ortho for evaluation and her imaging and exam reveal that her left pelvic fracture is not acute and other benign exam findings. No surgical intervention is felt to be indicated, nor is she considered a surgical candidate, per Ortho provider. In addition, she continues to have active purulent cellulites of the right leg, which requires aggressive treatment to prevent spread. This is of high concern given the metal hardware in the right leg. Maryjane has severe degenerative scoliosis with old compression fractures which contribute to , per provider. Patient is agreeable to resumption of [facility] RN for wound care, add PT/OT/[employer]. Discharge Potential Discharge Needs: PCP F/U Appt Anticipated Barriers to Discharge: None Identified Patient/Family Education Needs: Review discharge instructions, discuss Ask Me Three Transportation: Private vehicle (With lift assist.) Plan: Maryjane will discharge home with resumption of [facility] RN (new [facility] PT, OT, [employer].) Outpatient Palliative follow up is recommended. She will transport via private vehicle with family and continue per her discharge plan of care. Maryjane refuses SNF for STR, and elects to coordinate her own lift assist through [facility]. CM will follow. Social Determinants of Health Screening Will the Patient Participate in the Screening?: Declined to provide Do you worry about having a steady place to live?: choose not to answer In the past 12 months, have you had to go without electric, gas, oil or water in your home?: choose not to answer Comments: has become more agitated and less open to answering questions as the day has progressed Health Related Social Needs Health related social needs: material hardship(utilities) (Z59.12) Health related social needs details: lives with mother with dementia, falls often, found unresponsive on the floor prior to admission, non ambulatory
[2025-05-17 08:25] VITALS: BP 110/60; PULSE 90; RESP 17; TEMP 37.1; O2SAT 90
[2025-05-17] MEDS: Enoxaparin 40 MG/0.4 ML SYR SC (08:40)
[2025-05-17] MEDS: Metoprolol CR 25 MG TABCR 12.5 MG PO (08:41)
[2025-05-17] MEDS: DULoxetine 30 MG CAP 60 MG PO (08:41)
[2025-05-17] MEDS: Methadone 10 MG TAB 20 MG PO (08:42)
[2025-05-17] MEDS: Ferrous Sulfate 325 MG TAB PO (08:43)
[2025-05-17] MEDS: ARIPiprazole 5 MG TAB 10 MG PO (09:12)
[2025-05-17] MEDS: ARIPiprazole 15 MG TAB 30 MG PO (09:13)
[2025-05-17] MEDS: Normal Saline Flush 10 ML SYR IVP (09:13)
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
--- NOTE | 2025-05-17 09:39 | PDOC.CMDIS ---
Date of service: 05/17/25 Time of Service: 09:39 LACE Index Scoring Tool Questions: Length of Stay (in days): 3 Was the patient admitted via the E.D.?: Yes E.D. 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 She will be transported via private vehicle with family and continue per her discharge plan of care. Maryjane refuses SNF for STR, and elects to coordinate her own lift assist through [facility]. Patient/Family Education Needs: Review discharge instructions, discuss ask me three. Services Needed at Discharge: Home Health Care Services (CM notified [facility]) SDOH Health Related Social Needs: Health related social needs material hardship Health related social needs details lives with mother with dementia, falls often, found unresponsive on the floor prior to admission, non ambulatory Health related social needs details: lives with mother with dementia, falls often, found unresponsive on the floor prior to admission, non ambulatory
--- NOTE | 2025-05-17 10:55 | PTTR_ITS ---
PT Notes Visit Reasons: Opioid Overdose Physical Therapy Treatment Note Date: 05/17/2025 Precautions: Fall risk. Standard precautions. Subjective: Pt reports she is more awake and feeling like herself. Objective: General Observation: Patient seated on commode Mental Status: Alert and oriented x 4 Pain: pt no facial grimacing throughout session. Pt premedicated prior to PT entering room Vital Signs: Closely monitored by nursing staff Bed Mobility/Transfers: Minimal cueing provided for use of B hands as needed for support, movement sequence, AD management, and posture to reduce fall risk and minimize pain report Sit?stand: contact guard assist Stand?sit: contact guard assist bedside commode to w/c: step turn to left contact guard assist with FWW wheelchair to car step turn toward left with CGA with cues for foot positioning Balance: Static Sitting: Normal Dynamic Sitting: Normal Static Standing: Fair Dynamic Standing: Fair- ASSESSMENT:?? Pt tolerated session well . Pt with improved ability to perform stand step / pivot transfers with FWW. Pt remains limited and at risk for falls d/t impaired motor control of LLE difficulty advancing forward or abduction . Pt drags LLE along. Pt performs transfers with less difficulty with her booty slippers on. Pt becomes agitated when staff hold on to her or if she feels as staff may be pulling or pushing on the gait belt. Pt assisted to car at discharge with planned lift assist into her home. Plan of Care/Treatment Plan: 1-2x/day, 7 days/week x 1 week. Plan of care has been reviewed with the RIB CLOTH KNITTER providing the service under Physical Therapy direction. Initiate Physical Therapy intervention for strengthening, bed mobility, transfers, gait,, balance training, use of assistive device. DISCHARGE RECOMMENDATIONS: [] Home with no services [] [X] Home with services PT [] Home with outpatient PT [] [] SNF for continued rehabilitation. [] [facility] [] [] SNF versus LTC based on ability to participate and progress [] TREATMENT CODE/TIME: 64027/ [id number]
== END 2025-05-17 10:40 | disposition home health service (06) | DRG 917 ==
LOC: ER 05-14 00:59 → ICU 05-14 02:31 → MS 05-14 15:00
PROVIDERS: Admitting Provider Family Medicine; Emergency Provider Student in an Organized Health Care Education/Training Program; PCP Family Medicine; Responsible Provider Hospitalist; Visit Provider Family Medicine
DX: T40.2X1A Poisoning by other opioids, accidental (unintentional), initial encounter (principal); J96.22 Acute and chronic respiratory failure with hypercapnia; R60.1 Generalized edema; S22.41XA Multiple fractures of ribs, right side, initial encounter for closed fracture; F11.20 Opioid dependence, uncomplicated; D50.9 Iron deficiency anemia, unspecified; L03.115 Cellulitis of right lower limb; I48.20 Chronic atrial fibrillation, unspecified; M48.062 Spinal stenosis, lumbar region with neurogenic claudication; W18.30XA Fall on same level, unspecified, initial encounter; S32.492A Other specified fracture of left acetabulum, initial encounter for closed fracture; S32.392A Other fracture of left ilium, initial encounter for closed fracture; Z68.41 Body mass index [BMI] 40.0-44.9, adult; E66.2 Morbid (severe) obesity with alveolar hypoventilation; Z59.12 Inadequate housing utilities; E11.43 Type 2 diabetes mellitus with diabetic autonomic (poly)neuropathy; K31.84 Gastroparesis; Z96.641 Presence of right artificial hip joint; Z98.1 Arthrodesis status; G89.29 Other chronic pain; M41.80 Other forms of scoliosis, site unspecified; E87.6 Hypokalemia; I10 Essential (primary) hypertension; F31.9 Bipolar disorder, unspecified; Z79.899 Other long term (current) drug therapy; R29.6 Repeated falls; R41.82 Altered mental status, unspecified; R74.01 Elevation of levels of liver transaminase levels; F41.9 Anxiety disorder, unspecified; F17.210 Nicotine dependence, cigarettes, uncomplicated; M54.16 Radiculopathy, lumbar region; M81.0 Age-related osteoporosis without current pathological fracture; K43.9 Ventral hernia without obstruction or gangrene; Z74.09 Other reduced mobility
CPT/HCPCS: 00123; 36415; 36416; 51702; 71275; 74177; 80053; 80307; 82805; 82962; 87637; 93005; 93306; 93308; 94640; 96365; 96366; 96367; 96375; 97110; 97161; 97530; 99222; 99291; J1650; 70450; 71045; 72125; 80320; 81003; 82140; 82728; 83540; 83550; 83605; 83735; 83880; 84443; 84484; 85025; 85610; 93010; 94667; 94760; 99223; 99231; 99238; J0696; J1938; J2270; J2312; J2916; J3373; J7620

== ENCOUNTER 2025-05-18 14:42 | Inpatient (IN) | payer MEDICARE, SELFPAY ==
[2025-05-18] VITALS (86 sets, daily range): BP systolic 75–156; BP diastolic 39–98; PULSE 43–135; RESP 8–34; TEMP 36.7–36.8; O2SAT 70–100
--- NOTE | 2025-05-18 14:30 | RT.EKG_ITS ---
APPROVED REPORT Exam: Resting ECG Reason for Exam: Overdose Patient Location: E HR:110 bpm ECG Measurements Heart Rate 110 AXIS LA 148 P 42 QRSd 98 QRS 0 QT 345 T 41 QTc 440 Conclusion Sinus tachycardia...rate> 99 Probable left atrial enlargement...P >50mS, <-0.10mV V1 Indeterminate axis...QRS axis indeterminate Nonspecific T abnormalities, inferior leads...T <-0.10mV, II III aVF Sinus Tachy with PAC/PVC w/ episodes afib Normal axis/interval Nonspecific ST-T changes No acute ST changes
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
[2025-05-18] MEDS: Normal Saline 1,000 ML 1000 ML IV (15:02)
[2025-05-18 15:07] LABS: BE (Venous) 3 mmol/L (-2-3); HCO3 (Venous) 30 mmol/L (23-28); O2 Sat (Venous) 90 %; TCO2 (Venous) 29 mmol/L (24-29); pCO2 (Venous) 58 mmHg (41-51); pO2 (Venous) 61 mmHg
[2025-05-18 15:09] LABS: Abs Immature Grans 0.06 10^3/uL (0.0-0.06); HCT 34.2 % (36.0-46.0); HGB 8.1 g/dL (11.2-15.7); Immature Grans % 0.7 %; MCH 18.6 pg (27.0-33.0); MCHC 23.7 % (32.0-36.0); MPV 9.6 fL (8.0-11.0); Platelet Count 432 10^3/uL (130-400); RBC 4.35 10^6/uL (3.93-5.22); RDW 21.7 % (11.7-14.6); RDW-SD 55.7 fL; WBC 9.09 10^3/uL (4.4-10.8)
[2025-05-18] MEDS: dilTIAZem 25 MG/5 ML VIAL 20 MG IVP (15:10)
[2025-05-18 15:15] LABS: MCV 79 fL (80-95)
--- NOTE | 2025-05-18 15:15 | DI.CT_ITS ---
Exam(s) CT CHEST/ABD/PEL W EXAM: CT CHEST/ABD/PEL W CLINICAL HISTORY: AMS; unknown reason; previous falls. TECHNIQUE: Imaging Protocol: Axial computed tomography images with coronal and sagittal reformatted images were created and reviewed. Computer aided detection (CAD) was utilized. CONTRAST MATERIAL: Intravenous: Omnipaque 350 Contrast volume:100 ml Oral: / no COMPARISON: CT CT LUMBAR SPINE SI JOINTS WO from 08/24/[address] THORACIC LUMBAR SPINE WO from 05/01/[address] CHEST PE ABD PELVIS W from 05/13/2025 FINDINGS: CHEST: The exam is limited by motion. Pulmonary parenchyma: Expiratory changes. No consolidation. No dominant measurable mass. Mild emphysematous changes. Tracheobronchial tree: No bronchiectasis. No mucous plugging.No bronchial wall thickening. Pleura: There is a tiny right pleural effusion, decreased from the prior exam. No pneumothorax. Mediastinum: Within normal limits. Pulmonary arteries: Prominent. No visible emboli. Cardiovascular: The heart is enlarged. There mild coronary artery calcifications. No pericardial effusion. Thoracic aorta non-dilated. Bones: Multiple bilateral rib fractures are again noted. No lytic or blastic lesions. No thoracic compression fractures. Soft tissues: Unremarkable. ABDOMEN and PELVIS: Liver: Normal density. No suspicious mass. Gallbladder and biliary tract: Cholecystectomy. No biliary dilatation. Pancreas: Normal density, no abnormal calcifications or inflammatory process. Spleen: Normal. Kidneys: Normal size, contour and axis. No radiodense stones. No obstructive uropathy. No suspicious masses seen. Adrenal glands: No masses seen. Aorta: Abdominal portion non-dilated. Lymph nodes: Within normal limits. Soft tissues: Large paraumbilical hernia again noted. A loop of small bowel is also seen within the hernia. The previous exam showed only colon. There is no evidence of obstruction. Bladder: Unremarkable. Bowel: Large quantity of stool. The appendix is normal. No obstruction or bowel wall thickening. Peritoneal cavity: No ascites. No focal collection. No mesenteric inflammatory response. No free air. Bones: Right hip prosthesis. Postsurgical and severe degenerative changes are again noted in the lumbar spine. The appearance appears unchanged from [address] Subacute left acetabular fractures again noted. No change in mild flattening of the superior left femoral head. Reproductive organs: Unremarkable for age. IMPRESSION: No acute abnormality in the chest, abdomen or pelvis. Evaluation of the lungs is limited due to respiratory motion and expiratory changes. Bilateral rib fractures are again noted. No pneumothorax. Large quantity of stool is noted throughout the colon. Large left paraumbilical hernia containing loop of colon as well as a loop of small bowel. There is no evidence of obstruction at this level. RADIATION DOSE DELIVERED: Total DLP DATA REPOSITORY: All CT scans at this facility are submitted to the National Radiology Data Registry (NRDR) Dose Index Registry (DIR) with the [employer] (ACR). RADIATION OPTIMIZATION: All CT scans at this facility use at least one of these dose optimization techniques: automated exposure control; mA and/or kV adjustment per patient size (includes targeted exams where dose is matched to clinical indication); or iterative reconstruction.
[2025-05-18 15:30] LABS: Anisocytosis 3+
[2025-05-18 15:31] LABS: Hypochromasia 1+; Macrocytosis 1+; Microcytosis 2+; Ovalocytes 2+; Polychromasia Present
[2025-05-18 15:34] LABS: ALT 15 U/L (14-59); AST 25 U/L (15-37); Albumin 3.1 g/dL (3.4-5.0); Alkaline Phosphatase 119 U/L (46-116); Anion Gap 6.6 mmol/L (3-11); BUN 20 mg/dL (7-18); Bilirubin, Total 0.3 mg/dL (0.2-1.0); CO2 30.4 mmol/L (21.0-32.0); Calcium 9.0 mg/dL (8.5-10.1); Chloride 104 mmol/L (98-107); Estimated GFR 83.26 (mL/min/1.73m2); Glucose 96 mg/dL (74-106); Magnesium 2.5 mg/dL (1.8-2.4); Potassium 4.0 mmol/L (3.5-5.1); Sodium 141 mmol/L (136-145); Total Protein 7.0 g/dL (6.4-8.2); Troponin I 15 ng/L (<or=51)
[2025-05-18 15:38] LABS: Acetaminophen < 2 ug/mL (10-30)
[2025-05-18 15:43] LABS: Lipase 14 U/L (<78)
[2025-05-18] MEDS: Omnipaque 350 MG/ML 100 ML BTL IJ (15:53)
[2025-05-18] MEDS: Normal Saline Flush 10 ML SYR IVP (15:53)
[2025-05-18] MEDS: Normal Saline - Diluent 50 ML VIAL IJ (15:53)
--- NOTE | 2025-05-18 16:07 | DI.CT_ITS ---
Exam(s) CT HEAD CERVICAL SPINE WO EXAM: CT HEAD CERVICAL SPINE WO CLINICAL HISTORY: AMS, unknown cause. TECHNIQUE: Imaging Protocol: Axial computed tomography images with coronal and sagittal reformatted images were created and reviewed COMPARISON: CT CT HEAD CERVICAL SPINE WO from 05/13/2025 FINDINGS: Head CT The exam is limited by motion. Ventricles and Extra axial spaces: Normal in size and morphology for the patient's age. Hemorrhage: None. Cerebral parenchyma: No evidence of mass or acute infarct. Frontal temporal atrophy. Midline shift: None. Brainstem/Cerebellum: Normal. Calvarium: Normal. Visualized Paranasal sinuses/Mastoids: Multifocal sinus disease again noted. Soft tissues: Posterior scalp lesion again noted, probable sebaceous cyst. Cervical Spine CT BONES: Vertebral body heights are maintained. Alignment is normal. There is no evidence of acute fracture. Degenerative disc changes and facet degenerative changes are seen . SOFT TISSUES: No paraspinal hematoma. The airway appears intact. No pneumothorax is seen at the lung apices. IMPRESSION: Head CT: No acute abnormality. C-spine CT: Degenerative changes, no acute abnormality. RADIATION DOSE DELIVERED: Total DLP DATA REPOSITORY: All CT scans at this facility are submitted to the National Radiology Data Registry (NRDR) Dose Index Registry (DIR) with the [employer] (ACR). RADIATION OPTIMIZATION: All CT scans at this facility use at least one of these dose optimization techniques: automated exposure control; mA and/or kV adjustment per patient size (includes targeted exams where dose is matched to clinical indication); or iterative reconstruction.
[2025-05-18 16:53] LABS: Glucose Negative (Negative)
[2025-05-18 17:14] LABS: Cannabinoids THC Negative (Negative); METHADONE URINE SCREEN Positive (Negative)
[2025-05-18] MEDS: Lactated Ringers 1,000 ML 125 ML IV (17:30)
[2025-05-18 17:55] LABS: Salicylate < 2.8 mg/dL (<2.8)
[2025-05-18 18:01] LABS: Troponin I 16 ng/L (<or=51)
[2025-05-18 18:06] LABS: Lab Add On Test DONE
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
[2025-05-18 19:29] LABS: Troponin I 16 ng/L (<or=51)
[2025-05-18 19:50] LABS: COVID-19 PCR Negative (Negative); RSV PCR Negative (Negative)
--- NOTE | 2025-05-18 20:21 | W.PC.ACHO ---
Registration Status: REG ER Primary Language: Preferred Language: Malay ED Information & Data Chief Complaint AMS/LOC 05/18/25 14:57 Chief Complaint OD/Poison 05/18/25 14:54 Triage Note Pt BIBA after being found 05/18/25 14:45 unresponsive by home nurse. EMS states pills surrounded pt in bed. EMS administered 4mg narcan total and 4mg zofran. Pt responsive to painful stimuli upon entering ED. Medical / Surgical History (Last Reviewed 05/18/25 @ 18:45 by Rom Carrillo) Displaced trimalleolar fracture of right ankle Gastric ulcer (08/18/05) Depression (07/18/05) Gastroparesis (07/18/05) Morbid obesity Chronic right-sided lumbar radiculopathy Osteoporosis Type 2 diabetes mellitus Essential hypertension History of fractured rib COPD (chronic obstructive pulmonary disease) (Last Reviewed 05/18/25 @ 18:45 by Rom Carrillo) History of ankle surgery History of back surgery (10/17/17) ULCER/STOMACH SURGERY Replacement of total knee joint (04/17/17) Total replacement of hip KNEE SURGERY EGD - MAC Cholecystectomy (~06/2013) Most Recent Vital Signs Temperature 36.7 C 05/18/25 14:45 Temperature Source Tympanic 05/18/25 14:45 Pulse 83 05/18/25 20:01 Pulse 117 H 05/18/25 20:10 Respiratory Rate 9 L 05/18/25 20:10 Respiratory Effort Normal 05/18/25 17:56 Respiratory Depth Deep 05/18/25 14:57 Blood Pressure 105/52 L 05/18/25 20:01 Blood Pressure Mean 69 05/18/25 20:01 Pulse Oximetry 100 05/18/25 19:45 Oxygen Delivery Method Venti Mask 05/18/25 16:54 Oxygen Flow Rate 4 05/18/25 16:54 Pain Level 0 05/18/25 14:45 Allergies No Known Drug Allergies Allergy (Unknown, Verified 05/13/25 21:52) none Precautions Isolation Standard precaution 05/18/25 14:57 Active Medications Generic Name Dose Route Start Last Admin Trade Name Freq PRN Reason Stop Dose Admin Ringer's Solution 1,000 mls @ 125 mls/hr 05/18/25 17:00 05/18/25 17:30 IV 125 mls/hr INFUSION TAINA Administration Iohexol 100 ml 05/18/25 16:00 05/18/25 15:53 Omnipaque 350 Mg/Ml 100 Ml Btl IJ 06/17/25 23:59 100 ml DIRECTED TAINA Administration Sodium Chloride 0 ml 05/18/25 15:51 05/18/25 15:53 Normal Saline Flush 10 Ml Syr IVP 10 ml PRN PRN Administration Sodium Chloride 50 ml 05/18/25 16:00 05/18/25 15:53 Normal Saline - Diluent 50 Ml Vial IJ 50 ml DIRECTED TAINA Administration IV IV Catheter Type [Right Hand] Peripheral IV IV Catheter Type [Left Peripheral IV Antecubital] IV Catheter Gauge [Right Hand] 18 IV Catheter Gauge [Left 20 Antecubital] Diet Orders Category Date Time Status npo [Nothing Per Oral] [DIET] Nutrition 05/18/25 14:52 Active Diagnostics 05/18/25 05/18/25 05/18/25 Range/Units 19:05 19:04 17:35 WBC (4.4-10.8) 10^3/uL RBC (3.93-5.22) 10^6/uL Hgb (11.2-15.7) g/dL Hct (36.0-46.0) % MCV (80-95) fL MCH (27.0-33.0) pg MCHC (32.0-36.0) % RDW (11.7-14.6) % Plt Count (130-400) 10^3/uL MPV (8.0-11.0) fL Immature Gran % % Neutrophils % % Lymphocytes % % Monocytes % % Eosinophils % % Basophils % % Nucleated RBC % (0.0-0.3) % Absolute Neutrophils (1.2-6.7) 10^3/uL Absolute Lymphocytes (1.2-3.4) 10^3/uL Absolute Monocytes (0.1-0.8) 10^3/uL Absolute Eosinophils (0.0-0.7) 10^3/uL Absolute Basophils (0.0-0.2) 10^3/uL RBC Morphology Polychromasia Hypochromasia Anisocytosis Microcytosis Macrocytosis Ovalocytes VBG pH (7.31-7.41) VBG pCO2 (41-51) mmHg VBG pO2 mmHg VBG HCO3 (23-28) mmol/L VBG Total CO2 (24-29) mmol/L VBG O2 Saturation % VBG Base Excess (-2-3) mmol/L VBG Lactate (<or=2.0) mmol/L Sodium (136-145) mmol/L Potassium (3.5-5.1) mmol/L Chloride (98-107) mmol/L Carbon Dioxide (21.0-32.0) mmol/L Anion Gap (3-11) mmol/L BUN (7-18) mg/dL Creatinine (0.55-1.02) mg/dL Est GFR (CKD-EPI 2020) (mL/min/1.73m2) Glucose (74-106) mg/dL Calcium (8.5-10.1) mg/dL Magnesium (1.8-2.4) mg/dL Total Bilirubin (0.2-1.0) mg/dL AST (15-37) U/L ALT (14-59) U/L Alkaline Phosphatase (46-116) U/L Troponin I 16 (<or=51) ng/L Total Protein (6.4-8.2) g/dL Albumin (3.4-5.0) g/dL Lipase (<78) U/L Urine Color (Yellow) Urine Clarity (Clear) Urine pH (5-8) Ur Specific Bishop (1.005-1.025) Urine Protein (Neg-Trace) mg/dL Urine Ketones (Negative) mg/dL Urine Blood (Negative) Urine Nitrite (Negative) Urine Bilirubin (Negative) Urine Urobilinogen (Up to 0.2) mg/dL Ur Leukocyte Esterase (Negative) Urine Glucose (Negative) mg/dL Salicylates < 2.8 (<2.8) mg/dL Urine Opiates Screen (Negative) Urine Methadone Screen (Negative) Acetaminophen (10-30) ug/mL Ur Barbiturates Screen (Negative) Ur Tricyclics Screen (Negative) Ur Amphetamines Screen (Negative) U Benzodiazepines Scrn (Negative) Urine Cocaine Screen (Negative) Ur THC Screen (Negative) Ethyl Alcohol COVID-19 Source Nasopharynx SARS-CoV-2 (PCR) Negative (Negative) Influenza Type A (PCR) Negative (Negative) Influenza Type B (PCR) Negative (Negative) RSV (PCR) Negative (Negative) Add-On Test Request 09/30/25 09/30/25 09/30/25 Range/Units 17:34 16:45 15:00 WBC 9.09 (4.4-10.8) 10^3/uL RBC 4.35 (3.93-5.22) 10^6/uL Hgb 8.1 L (11.2-15.7) g/dL Hct 34.2 L (36.0-46.0) % MCV 79 L D (80-95) fL MCH 18.6 L (27.0-33.0) pg MCHC 23.7 L (32.0-36.0) % RDW 21.7 H (11.7-14.6) % Plt Count 432 H (130-400) 10^3/uL MPV 9.6 (8.0-11.0) fL Immature Gran % 0.7 % Neutrophils % 72.2 % Lymphocytes % 12.0 % Monocytes % 7.0 % Eosinophils % 7.3 % Basophils % 0.8 % Nucleated RBC % 0.0 (0.0-0.3) % Absolute Neutrophils 6.57 (1.2-6.7) 10^3/uL Absolute Lymphocytes 1.09 L (1.2-3.4) 10^3/uL Absolute Monocytes 0.64 (0.1-0.8) 10^3/uL Absolute Eosinophils 0.66 (0.0-0.7) 10^3/uL Absolute Basophils 0.07 (0.0-0.2) 10^3/uL RBC Morphology See Below Polychromasia Present Hypochromasia 1+ Anisocytosis 3+ Microcytosis 2+ Macrocytosis 1+ Ovalocytes 2+ VBG pH 7.32 (7.31-7.41) VBG pCO2 58 H (41-51) mmHg VBG pO2 61 mmHg VBG HCO3 30 H (23-28) mmol/L VBG Total CO2 29 (24-29) mmol/L VBG O2 Saturation 90 % VBG Base Excess 3 (-2-3) mmol/L VBG Lactate 2.3 H* (<or=2.0) mmol/L Sodium 141 (136-145) mmol/L Potassium 4.0 (3.5-5.1) mmol/L Chloride 104 (98-107) mmol/L Carbon Dioxide 30.4 (21.0-32.0) mmol/L Anion Gap 6.6 (3-11) mmol/L BUN 20 H (7-18) mg/dL Creatinine 0.8 (0.55-1.02) mg/dL Est GFR (CKD-EPI 2020) 83.26 (mL/min/1.73m2) Glucose 96 (74-106) mg/dL Calcium 9.0 (8.5-10.1) mg/dL Magnesium 2.5 H (1.8-2.4) mg/dL Total Bilirubin 0.3 (0.2-1.0) mg/dL AST 25 (15-37) U/L ALT 15 (14-59) U/L Alkaline Phosphatase 119 H (46-116) U/L Troponin I 16 15 (<or=51) ng/L Total Protein 7.0 (6.4-8.2) g/dL Albumin 3.1 L (3.4-5.0) g/dL Lipase 14 (<78) U/L Urine Color Yellow (Yellow) Urine Clarity Clear (Clear) Urine pH 6.0 (5-8) Ur Specific Bishop 1.010 (1.005-1.025) Urine Protein Negative (Neg-Trace) mg/dL Urine Ketones Negative (Negative) mg/dL Urine Blood Negative (Negative) Urine Nitrite Negative (Negative) Urine Bilirubin Negative (Negative) Urine Urobilinogen 0.2 (Up to 0.2) mg/dL Ur Leukocyte Esterase Negative (Negative) Urine Glucose Negative (Negative) mg/dL Salicylates (<2.8) mg/dL Urine Opiates Screen Positive A (Negative) Urine Methadone Screen Positive A (Negative) Acetaminophen < 2 (10-30) ug/mL Ur Barbiturates Screen Negative (Negative) Ur Tricyclics Screen Positive A (Negative) Ur Amphetamines Screen Negative (Negative) U Benzodiazepines Scrn Negative (Negative) Urine Cocaine Screen Negative (Negative) Ur THC Screen Negative (Negative) Ethyl Alcohol Pending COVID-19 Source SARS-CoV-2 (PCR) (Negative) Influenza Type A (PCR) (Negative) Influenza Type B (PCR) (Negative) RSV (PCR) (Negative) Add-On Test Request DONE Intake and Output - 24 Hour Total 05/18/25 14:38 thru 05/18/25 16:47 Intake Total 1000 Output Total 400 Balance 600 Weight 118.8 kg Intake: IV 1000 Output: Urine 400 Other: Urine Color Yellow Urine Appearance Clear Urinary Catheter Urinary Catheter Date of 05/18/25 Insertion [Urethral (Villatoro)] Time of insertion [Urethral ( 16:30 Villatoro)] Falls Risk Assessment History of Falls No History 05/18/25 14:57 Contributing Factors Confusion,Unstable, 05/18/25 14:57 Impairments Ambulatory Aids Uses ambulatory device 05/18/25 14:57 Tubes/Lines With any additional score 05/18/25 14:57 Gait Evaluation No gait disturbance 05/18/25 14:57 Cognition Cognitive impairment 05/18/25 14:57 Fall Total Score 59 05/18/25 14:57 Level of Risk High Risk 05/18/25 14:57 Problems (Last Reviewed 05/18/25 @ 18:45 by Rom Carrillo) Opiate overdose (Acute) v v v v v v v v v Sending and/or Receiving Nurses: Please use comment section below to note any information pertinent to the patient hand-off not included above. Information / Comments:Brought in by EMS, after being found by home health unresponsive, and pills scattered around patient. EMS gave Narcan in the field. In the ED patient had to be suctioned, and possibly aspirated. Patient is on methadone, and has it at home, not sure what else patient may have taken at this point. Blood pressure soft, and given boluses in the ED. Maps are good. Is on oxy mask at 10 Liters currently. Patient has been unable to arouse. Head/neck CT unremarkable. Report received from:Alisa Ibarra RN
[2025-05-18 22:50] LABS: TSH 1.57 uIU/mL (0.36-3.74)
[2025-05-19] VITALS (27 sets, daily range): BP systolic 89–127; BP diastolic 54–90; PULSE 67–125; RESP 9–15; TEMP 36.6–37.6; O2SAT 79–99
[2025-05-19] MEDS: AMPICILLIN/SULBACTAM 3 GM in Normal Saline 100 ML IVPB ×3 (00:36→12:03)
[2025-05-19] MEDS: Normal Saline Flush 10 ML SYR IVP ×4 (00:36→20:01)
[2025-05-19] MEDS: Lactated Ringers 1,000 ML 125 ML IV (01:23)
--- NOTE | 2025-05-19 06:15 | DI.RAD_ITS ---
Exam(s) XR HAND LT LIMITED EXAM: XR HAND LT LIMITED INDICATION: Swelling left hand status post fall. COMPARISON: No exams were available for comparison TECHNIQUE: 2D digital imaging was performed. Two views. Portable. FINDINGS: Stable alignment of the mid 4th fracture. No new abnormalities. DATA REPOSITORY: RADIATION DOSE DELIVERED:
--- NOTE | 2025-05-19 06:15 | DI.RAD_ITS ---
Exam(s) XR PORTABLE CHEST AP EXAM: XR PORTABLE CHEST AP CLINICAL HISTORY: Vomiting with aspiration, AMS TECHNIQUE: 2D digital imaging was performed. Portable COMPARISON: CR,XR XR PORTABLE CHEST AP from 05/13/[address] CHEST/ABD/PEL W from 05/18/2025 FINDINGS: Exam is limited by positioning. Leads overlie the chest. LUNGS: Stable appearance pulmonary vascular prominence and increased interstitial markings consistent with pulmonary edema. No effusions are visible. HEART: Enlarged, unchanged. AORTA: Normal diameter. BONES: Unremarkable for age. Soft tissues: Unremarkable. IMPRESSION: Stable findings of pulmonary edema. No focal consolidation is visible. DATA REPOSITORY: RADIATION DOSE DELIVERED:
--- NOTE | 2025-05-19 06:15 | DI.RAD_ITS ---
Exam(s) XR SHOULDER LT 1V EXAM: XR SHOULDER LT 1V CLINICAL HISTORY: Bruising over left shoulder status post fall. TECHNIQUE: 2D digital imaging was performed. Single portable semi upright view COMPARISON: CR LEFT RIBS TO INCLUDE CXR from 10/19/2014 CR XR SHOULDER RT COMPLETE 2+V from 03/25/2024 CR,XR XR PORTABLE CHEST AP from 05/13/2025 CR XR PORTABLE CHEST AP from 05/19/2025 FINDINGS: BONES: No acute fracture is present. No bony destructive lesion is seen. JOINTS: No dislocation present. The AC joint is not widened. SOFT TISSUE: Normal. IMPRESSION: Limited exam. No acute abnormality. DATA REPOSITORY: RADIATION DOSE DELIVERED:
[2025-05-19 06:46] LABS: ALT 13 U/L (14-59); AST 32 U/L (15-37); Albumin 2.4 g/dL (3.4-5.0); Alkaline Phosphatase 97 U/L (46-116); Anion Gap 3.2 mmol/L (3-11); BUN 13 mg/dL (7-18); Bilirubin, Total 0.3 mg/dL (0.2-1.0); CO2 31.8 mmol/L (21.0-32.0); Calcium 8.3 mg/dL (8.5-10.1); Chloride 108 mmol/L (98-107); Estimated GFR 111.83 (mL/min/1.73m2); Glucose 87 mg/dL (74-106); Sodium 143 mmol/L (136-145); Total Protein 5.9 g/dL (6.4-8.2)
[2025-05-19 06:48] LABS: Potassium 5.2 mmol/L (3.5-5.1)
[2025-05-19 07:15] LABS: HCO3 (Venous) 32 mmol/L (23-28); TCO2 (Venous) 31 mmol/L (24-29); pCO2 (Venous) 53 mmHg (41-51); pO2 (Venous) 143 mmHg
[2025-05-19 07:16] LABS: BE (Venous) 7 mmol/L (-2-3)
[2025-05-19 08:01] LABS: HCT 31.3 % (36.0-46.0); HGB 7.6 g/dL (11.2-15.7); MCH 19.2 pg (27.0-33.0); MCHC 24.3 % (32.0-36.0); MCV 79 fL (80-95); MPV 9.7 fL (8.0-11.0); RBC 3.96 10^6/uL (3.93-5.22); RDW 21.6 % (11.7-14.6); RDW-SD 56.8 fL; WBC 7.93 10^3/uL (4.4-10.8)
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
[2025-05-19] MEDS: Lidocaine 5% Patch 1 PATCH TP (09:16)
[2025-05-19] MEDS: Enoxaparin 40 MG/0.4 ML SYR SC (09:17)
--- NOTE | 2025-05-19 11:29 | W.PM.PROGNOT ---
Date of Service Date of service: 05/19/25 Time of Service: 11:29 Assessment and Plan Assessment and plan (1) Opiate overdose: Start date: 05/18/25 Status: Acute Assessment and plan: Second hospitalizatoin this week for oversedation from her prescribed narcotics, only home 1 night. She cleared off of her methadone during her last hospital stay. Urine send-outs for polysubstance use are pending. She did respond to naloxone confirming opioid overdose, presumably accidental, and she is becoming more alert now. Progressed to clear diet. She needs an alternative to methadone, or methadone at [facility] given demonstrated risks. Will discuss options when she is more alert. (2) Aspiration pneumonia: Start date: 05/18/25 Status: Acute Assessment and plan: CT of the chest showed no acute changes, CXR also did not show pneumonia. Can stop amp/sulbactam. (3) Degenerative scoliosis in adult patient: Status: Chronic Assessment and plan: This is cause of her chronic pain. Need alternate pain regimen as above. (4) PAF (paroxysmal atrial fibrillation): Status: Chronic Assessment and plan: Paeoxysmal, continue metoprolol. Not on intermediate manager anticoagulation. (5) Venous stasis ulcers of both lower extremities: Status: Chronic Assessment and plan: Wound care will be consulted, needs chronic management. (6) Type 2 diabetes mellitus: Assessment and plan: has been in remission recently, confirm with A1c, if normal no need to monitor (7) Depression: Assessment and plan: H/o severe depression. She is on ariprazole along with full dose SNRI as well as TCA, which is not typical, but will defer to primary care. She does not appear to be in seratonin syndrome. (8) Frequent falls: Status: Chronic Assessment and plan: Patient does have acute injury to her left shoulder and does have her left hand swollen. XRs negative. PT consult. VTE: enoxaparin Subjective Subjective Patient reports: denies diarrhea, vomiting, shortness of breath or fever Interval history since last seen: No events overnight, did respond to naloxone in ED She denies pain this morning. She knows she is at [facility]. Has been NPO, more alert and asking for coffee later in the morning Exam Narrative Exam Narrative: GEN: Somnolent, awakens to voice and oriented to self and place. Pupils 3-4mm room air Lungs: diminished with poor effort, no rales or wheezing CV: RRR, no murmur ABD: soft, NT/ND Ext: no cyanosis or edema. Objective Last Vital Signs Temp 37.6 C H 05/19/25 04:30 Pulse 99 H 05/19/25 10:02 Resp 10 L 05/19/25 10:02 BP 115/68 05/19/25 10:02 Pulse Ox 97 05/19/25 11:21 Laboratory Results - last 24 hr 05/18/25 05/18/25 05/18/25 15:00 16:45 17:34 WBC 9.09 RBC 4.35 Hgb 8.1 L Hct 34.2 L MCV 79 L D MCH 18.6 L MCHC 23.7 L RDW 21.7 H Plt Count 432 H MPV 9.6 Immature Gran % 0.7 Neutrophils % 72.2 Lymphocytes % 12.0 Monocytes % 7.0 Eosinophils % 7.3 Basophils % 0.8 Nucleated RBC % 0.0 Absolute Neutrophils 6.57 Absolute Lymphocytes 1.09 L Absolute Monocytes 0.64 Absolute Eosinophils 0.66 Absolute Basophils 0.07 RBC Morphology See Below Polychromasia Present Hypochromasia 1+ Anisocytosis 3+ Microcytosis 2+ Macrocytosis 1+ Ovalocytes 2+ VBG pH 7.32 VBG pCO2 58 H VBG pO2 61 VBG HCO3 30 H VBG Total CO2 29 VBG O2 Saturation 90 VBG Base Excess 3 VBG Lactate 2.3 H* Sodium 141 Potassium 4.0 Chloride 104 Carbon Dioxide 30.4 Anion Gap 6.6 BUN 20 H Creatinine 0.8 Est GFR (CKD-EPI 2020) 83.26 Glucose 96 Calcium 9.0 Magnesium 2.5 H Total Bilirubin 0.3 AST 25 ALT 15 Alkaline Phosphatase 119 H Troponin I 15 16 Total Protein 7.0 Albumin 3.1 L Lipase 14 TSH Urine Color Yellow Urine Clarity Clear Urine pH 6.0 Ur Specific [place] 1.010 Urine Protein Negative Urine Ketones Negative Urine Blood Negative Urine Nitrite Negative Urine Bilirubin Negative Urine Urobilinogen 0.2 Ur Leukocyte Esterase Negative Urine Glucose Negative Salicylates Urine Opiates Screen Positive A Urine Methadone Screen Positive A Acetaminophen < 2 Ur Barbiturates Screen Negative Ur Tricyclics Screen Positive A Ur Amphetamines Screen Negative U Benzodiazepines Scrn Negative Urine Cocaine Screen Negative Ur THC Screen Negative Ethyl Alcohol < 3.0 COVID-19 Source SARS-CoV-2 (PCR) Influenza Type A (PCR) Influenza Type B (PCR) RSV (PCR) Add-On Test Request DONE 05/18/25 05/18/25 05/18/25 17:35 19:04 19:05 WBC RBC Hgb Hct MCV MCH MCHC RDW Plt Count MPV Immature Gran % Neutrophils % Lymphocytes % Monocytes % Eosinophils % Basophils % Nucleated RBC % Absolute Neutrophils Absolute Lymphocytes Absolute Monocytes Absolute Eosinophils Absolute Basophils RBC Morphology Polychromasia Hypochromasia Anisocytosis Microcytosis Macrocytosis Ovalocytes VBG pH VBG pCO2 VBG pO2 VBG HCO3 VBG Total CO2 VBG O2 Saturation VBG Base Excess VBG Lactate Sodium Potassium Chloride Carbon Dioxide Anion Gap BUN Creatinine Est GFR (CKD-EPI 2020) Glucose Calcium Magnesium Total Bilirubin AST ALT Alkaline Phosphatase Troponin I 16 Total Protein Albumin Lipase TSH 1.57 Urine Color Urine Clarity Urine pH Ur Specific [place] Urine Protein Urine Ketones Urine Blood Urine Nitrite Urine Bilirubin Urine Urobilinogen Ur Leukocyte Esterase Urine Glucose Salicylates < 2.8 Urine Opiates Screen Urine Methadone Screen Acetaminophen Ur Barbiturates Screen Ur Tricyclics Screen Ur Amphetamines Screen U Benzodiazepines Scrn Urine Cocaine Screen Ur THC Screen Ethyl Alcohol COVID-19 Source Nasopharynx SARS-CoV-2 (PCR) Negative Influenza Type A (PCR) Negative Influenza Type B (PCR) Negative RSV (PCR) Negative Add-On Test Request 05/19/25 05/19/25 05:40 06:00 WBC 7.93 RBC 3.96 Hgb 7.6 L Hct 31.3 L MCV 79 L MCH 19.2 L MCHC 24.3 L RDW 21.6 H Plt Count MPV 9.7 Immature Gran % Neutrophils % Lymphocytes % Monocytes % Eosinophils % Basophils % Nucleated RBC % Absolute Neutrophils Absolute Lymphocytes Absolute Monocytes Absolute Eosinophils Absolute Basophils RBC Morphology Polychromasia Hypochromasia Anisocytosis Microcytosis Macrocytosis Ovalocytes VBG pH 7.39 VBG pCO2 53 H VBG pO2 143 VBG HCO3 32 H VBG Total CO2 31 H VBG O2 Saturation VBG Base Excess 7 H VBG Lactate 1.2 Sodium 143 Potassium 5.2 H D Chloride 108 H Carbon Dioxide 31.8 Anion Gap 3.2 BUN 13 Creatinine 0.4 L Est GFR (CKD-EPI 2020) 111.83 Glucose 87 Calcium 8.3 L Magnesium Total Bilirubin 0.3 AST 32 ALT 13 L Alkaline Phosphatase 97 Troponin I Total Protein 5.9 L Albumin 2.4 L Lipase TSH Urine Color Urine Clarity Urine pH Ur Specific [place] Urine Protein Urine Ketones Urine Blood Urine Nitrite Urine Bilirubin Urine Urobilinogen Ur Leukocyte Esterase Urine Glucose Salicylates Urine Opiates Screen Urine Methadone Screen Acetaminophen Ur Barbiturates Screen Ur Tricyclics Screen Ur Amphetamines Screen U Benzodiazepines Scrn Urine Cocaine Screen Ur THC Screen Ethyl Alcohol COVID-19 Source SARS-CoV-2 (PCR) Influenza Type A (PCR) Influenza Type B (PCR) RSV (PCR) Add-On Test Request Time Spent with Patient Time Spent with Patient: >50 minutes Time was spent: preparing to see the patient(eg.review tests), obtaining and/or reviewing separately otained hiistory, ordering medications,tests, procedures, referring, communicating with other health progressive care unit registered nurse, indepentently interpreting results, counseling the patient and care coordination
--- NOTE | 2025-05-19 13:22 | PHA.REVIEW2 ---
Pharmacy Admission Review Admission Clinical Review Admission Pharmacy Review: Aspiration pneumonia (Acute) Opiate overdose (Acute) No Known Drug Allergies Allergy (Unknown, Verified 05/13/25 21:52) none Resuscitation Status Full Code Height 5 ft 4.96 in Weight 106.3 kg Comments Comments/Follow Ups: Follow up on missing home meds Pharmacy Admission Review Renal Dosing Renal Dosing: BUN 13 mg/dL (7-18) 05/19/25 06:00 Creatinine 0.4 mg/dL (0.55-1.02) L 05/19/25 06:00 Medications needing adjustments: Reviewed (CrCl 70.6 mL/min) List of meds needing interventions: Current medications are okay Anticoagulation Anticoagulation: Hgb 7.6 g/dL (11.2-15.7) L 05/19/25 05:40 Hct 31.3 % (36.0-46.0) L 05/19/25 05:40 Plt Count 10^3/uL (130-400) 05/19/25 05:40 Creatinine 0.4 mg/dL (0.55-1.02) L 05/19/25 06:00 DVT Prophylaxis: Reviewed (Hgb decreased from 8.1) Medications: Enoxaparin (40mg daily) Relevant Labs Relevant Labs: Sodium 143 mmol/L (136-145) 05/19/25 06:00 Potassium 5.2 mmol/L (3.5-5.1) H D 05/19/25 06:00 Chloride 108 mmol/L (98-107) H 05/19/25 06:00 Magnesium 2.5 mg/dL (1.8-2.4) H 05/18/25 15:00 Electrolytes, C-Reactive P, ESR: Reviewed Cardiac Review Cardiac Review: Troponin I 16 ng/L (<or=51) 05/18/25 19:05 Blood Pressure 117/58 1201 Blood Pressure 115/68 1002 Blood Pressure 106/61 1001 Blood Pressure 115/68 0801 Blood Pressure 103/59 0600 Blood Pressure 104/54 0401 Blood Pressure 90/64 0203 BP, HR, EF%: Reviewed (RR 11, Ox 90 and oxygen flow rate = 2) List meds needing interventions: Has order for metoprolol XL 12.5mg daily QTc Review QTc: Reviewed (440 from 05/18/25) IV to PO Switch IV Medications: Reviewed (acetaminophen and Unasyn) Home Meds Home Med List reviewed: Intervened Relevent Home Meds Not ordered & why?: Prolia (a9szrhml), fenofibrate, furosemide (PRN), gabapentin, HCTZ, methadone (on hold per H+P), naltrexone and oxycodone (PRN) Asked provider about fenofibrate, gabapentin (assume due to OD/sedation risk) and HCTZ (assume due to low BP) - waiting to hear back Current Meds Current Medication Order Review: Intervened Comments: Added patch removal order for lidocaine patch Asked provider for frequency for miconazole power order - was put in as PRN PRN, provider stated should be TID PRN - order changed Pharmacy Antibiotic Review Relevant Labs: WBC 7.93 10^3/uL (4.4-10.8) 05/19/25 05:40 Temperature 37.6 C Pharmacy Antibiotic Activity: C/S review and Reviewed, no change Comments: Patient is on Unasyn, day 1, for aspiration pneumonia. Per progress note from this afternoon, pneumonia is unlikely and provider plans on discontinuing. Reached out as the order is still active, per provider they will discontinue shortly. Comments Comments/Follow Ups: Follow up on missing home meds
--- NOTE | 2025-05-19 17:36 | NUR.NOTE ---
Pt laying in bed, crying help me over and over. Attempts made to help her- she wants her Mom, but can't remember the number, can't dial the phone. Has dropped 2 glasses of water and ale jacey, the last requiring a complete bed change and bath. Want's hot coffee, but she cannot hold the cup without dropping it. I will not give her hot coffee at this time due to inability to manage cups of fluid. O2 changed to nasal cannula at 2 L, this she is keeping on.
[2025-05-19] MEDS: oxyCODONE 10 MG TAB PO (17:57)
[2025-05-19] MEDS: Doxepin 50 MG CAP 200 MG PO (20:01)
[2025-05-19] MEDS: Simvastatin 10 MG TAB 20 MG PO (20:01)
[2025-05-19] MEDS: Patch Removal LIDOCAINE 1 EACH TP (20:02)
[2025-05-20] VITALS (15 sets, daily range): BP systolic 100–154; BP diastolic 68–92; PULSE 78–130; RESP 10–22; TEMP 36.7; O2SAT 87–97
[2025-05-20] MEDS: ACETAMINOPHEN 1,000 MG/100 ML BAG 400 MG IVPB (04:27)
[2025-05-20 06:25] LABS: HCT 31.9 % (36.0-46.0); HGB 7.4 g/dL (11.2-15.7); MCH 18.9 pg (27.0-33.0); MCHC 23.2 % (32.0-36.0); MCV 82 fL (80-95); MPV 9.5 fL (8.0-11.0); Platelet Count 359 10^3/uL (130-400); RBC 3.91 10^6/uL (3.93-5.22); RDW 21.8 % (11.7-14.6); RDW-SD 60.3 fL; WBC 5.79 10^3/uL (4.4-10.8)
[2025-05-20 06:54] LABS: ALT 9 U/L (14-59); AST 19 U/L (15-37); Albumin 2.4 g/dL (3.4-5.0); Alkaline Phosphatase 94 U/L (46-116); Anion Gap 4.4 mmol/L (3-11); BUN 11 mg/dL (7-18); Bilirubin, Total 0.3 mg/dL (0.2-1.0); CO2 33.6 mmol/L (21.0-32.0); Calcium 8.8 mg/dL (8.5-10.1); Chloride 104 mmol/L (98-107); Estimated GFR 105.98 (mL/min/1.73m2); Glucose 76 mg/dL (74-106); Potassium 4.3 mmol/L (3.5-5.1); Sodium 142 mmol/L (136-145); Total Protein 5.8 g/dL (6.4-8.2)
--- NOTE | 2025-05-20 08:19 | CMPROGNOTE_ITS ---
Date of service: 05/20/25 Time of Service: 08:19 Care Management Progress Note Progress Note Text Progress Note Text: Maryjane was awake and lying in bed when CM met with her. She readily engaged in conversation, after expressing that she did not want discuss the reason for her readmission with this telegraphic typewriter operator. Maryjane shared that she is currently upset that her son Sony, who she had just been re-added to her HIPAA was already calling the hospital for information. Maryjane specifically asked CM not to call him; stating that she would rather call him herself, which she then did using her room phone. CM was present for the conversation and patient appeared to provide her son with an accurate description of her reason for readmission, stating to him that she overdosed again on her prescription meds. She then informed him that she is being taken off methodone and oxycodone and trialing another medication. Following this exchange, the conversation appeared to become unproductive, and CM heard Maryjane tell her son that she would no longer be calling him with up dates. After the call, Maryjane reported to CM that the conversation did not go well, which she states is typically the case. She then requested another HIPAA form. Per pt, she does not want her son receiving any information from the hospital or interfering with the relationship she has with her PCP whom she states prescribes her meds. Maryjane is being downgraded to the MS status. Consults are pending for PT, Wound and Palliative. Anticipate, patient will discharge home with resumption of [facility] RN, add PT, OT, CYLINDER DYER. CM will continue to follow and support discharge planning considerations once her needs are better defined. Patient will need close outpatient follow up for her opioid use disorder. CM has been in contact with [facility] RN at PCP's office. Discharge Potential Discharge Needs: PCP F/U Appt Anticipated Barriers to Discharge: None Identified Patient/Family Education Needs: Review discharge instructions, discuss Ask Me Three Transportation: Private vehicle Plan: There are significant concerns regarding Maryjane's safety and ability to manage her pain medication at home. PT, wound and Palliative referrals are pending. CM will continue to follow and support discharge planning considerations once her needs are better defined. Social Determinants of Health Screening Will the Patient Participate in the Screening?: Unable to obtain Do you worry about having a steady place to live?: choose not to answer
[2025-05-20] MEDS: Metoprolol CR 25 MG TABCR PO (09:41)
[2025-05-20] MEDS: HYDROmorphone 4 MG TAB PO ×3 (09:41→20:00)
[2025-05-20] MEDS: ARIPiprazole 15 MG TAB 30 MG PO (09:41)
[2025-05-20] MEDS: ARIPiprazole 5 MG TAB 10 MG PO (09:41)
[2025-05-20] MEDS: Enoxaparin 40 MG/0.4 ML SYR SC (09:42)
[2025-05-20] MEDS: Normal Saline Flush 10 ML SYR IVP ×2 (09:42→19:58)
[2025-05-20] MEDS: DULoxetine 30 MG CAP 60 MG PO (09:42)
[2025-05-20] MEDS: Miconazole 2% Topical Powder 85 GM BTL TP (09:43)
[2025-05-20 11:24] LABS: Fentanyl Scr w/Rfx Confirm Negative ng/mL (<1)
--- NOTE | 2025-05-20 11:34 | W.NUTRFU ---
Date of service: 05/20/25 Time of Service: 11:35 Nutrition Note NOTE: Pt being treated in ICU for rx opiate overdose. Mental status has improved - diet advanced to heart healthy yesterday with fair intake. Pt with hx of diabetes but last a1c was 5.1% August 2023. glucose fingersticks 05/13 at 23:26 was 126 - no monitoring since. fastng gluocse wnl the last 6 days. Reviewed labs today - low hgb/hct. Cr .5 today. Mag was 2.5 05/18. total protein and albumin labs low today. NFPE not performed ONS will be offered at meals by kitchen staff to try and increase protein intake this admission. No other agressive nutrition therapies planned at this time. Will continue to monitor/reassess nutrition status. Time Spent in Nutritional Counseling and Treatment: 5 min
[2025-05-20] MEDS: Buprenorphine 2 MG SUBLINGUAL TABLET 0.5 MG SL ×4 (12:32→21:21)
--- NOTE | 2025-05-20 14:34 | PGE_ITS ---
Date of Service Date of service: 05/20/25 Time of Service: 14:38 Assessment and Plan Assessment and plan (1) Opiate overdose: Start date: 05/18/25 Status: Acute Assessment and plan: Second hospitalizatoin this week for oversedation from her prescribed narcotics, only home 1 night. She cleared off of her methadone during her last hospital stay. Urine send-outs for polysubstance use are pending. She did respond to naloxone confirming opioid overdose, she confirms accidental, and she is now alert. Progressed to regular diet. She needs an alternative to methadone. We discussed options, will initiate low dose titration of buprenorphine, use hydromorphone bridge for the first 2 days. (2) Aspiration pneumonia: Start date: 05/18/25 Status: Acute Assessment and plan: CT of the chest showed no acute changes, CXR also did not show pneumonia. Stopped amp/sulbactam 05/19. (3) Degenerative scoliosis in adult patient: Status: Chronic Assessment and plan: This is cause of her chronic pain. Also recent injuries including left hip related to falls. Need alternate pain regimen as above. (4) PAF (paroxysmal atrial fibrillation): Status: Chronic Assessment and plan: Paeoxysmal, continue metoprolol. Not on ocean transportation intermediary anticoagulation. (5) Venous stasis ulcers of both lower extremities: Status: Chronic Assessment and plan: Wound care consulted, needs chronic management. Compression as tolerated. (6) Type 2 diabetes mellitus: Assessment and plan: has been in remission, confirmed with A1c 5.1% in normal range , no need to monitor (7) Depression: Assessment and plan: H/o severe depression. She is on ariprazole along with full dose SNRI as well as TCA, which is not typical, but will defer to primary care. She does not appear to be in seratonin syndrome. (8) Frequent falls: Status: Chronic Assessment and plan: Patient does have acute injury to her left shoulder and does have her left hand swollen. XRs negative for acute fracture but she has subacute fractures of left hip. PT consulted. Will consult orthopedics.. VTE: enoxaparin Subjective Subjective Patient reports: shortness of breath; denies diarrhea, vomiting or fever Interval history since last seen: Events: Continues off methadone, resumed oxycodone 10mg prn. She is getting more pain this morning. Feels like oxycodone isn't strong enough. She is starting to get anxious, irritable. No nausea or diarrhea. She has been on pain medication for years, doesn't think she can ever stop, though she agrees she can't be on methadone safely. Pain is in the low back and left hip and legs. She still has a cough. Wants real food. Her shoulders and arms aren't bothering her. Exam Narrative Exam Narrative: GEN: A&O x 3, NAD. Pupils 3-4mm room air Lungs: Normal effort, no rales or wheezing CV: RRR, no murmur ABD: soft, NT, large hernia noted, not distended Ext: no cyanosis. venous stasis sabrina, ulcers on right lower leg. Objective Last Vital Signs Temp 36.7 C 05/20/25 14:14 Pulse 78 05/20/25 14:03 Resp 16 05/20/25 14:03 BP 133/75 05/20/25 14:03 Pulse Ox 95 05/20/25 14:03 Laboratory Results - last 24 hr 05/20/25 05:20 WBC 5.79 RBC 3.91 L Hgb 7.4 L Hct 31.9 L MCV 82 MCH 18.9 L MCHC 23.2 L RDW 21.8 H Plt Count 359 MPV 9.5 Sodium 142 Potassium 4.3 Chloride 104 Carbon Dioxide 33.6 H Anion Gap 4.4 BUN 11 Creatinine 0.5 L Est GFR (CKD-EPI 2020) 105.98 Glucose 76 Calcium 8.8 Total Bilirubin 0.3 AST 19 ALT 9 L Alkaline Phosphatase 94 Total Protein 5.8 L Albumin 2.4 L Time Spent with Patient Time Spent with Patient: >50 minutes Time was spent: preparing to see the patient(eg.review tests), obtaining and/or reviewing separately otained hiistory, ordering medications,tests, procedures, referring, communicating with other health resident care director, indepentently interpreting results, counseling the patient and care coordination
--- NOTE | 2025-05-20 14:56 | PT.INIE ---
PT Notes Visit Reasons: Opioid Overdose Inpatient Physical Therapy Evaluation Date: 05/20/2025 Referring Doctor: Dr Alvares PT Orders: PT CONSULT: Eval for assistive device, fall safety assessment Precautions: Standard, IV access Patient Profile/Admitting Diagnosis: Patient is a 64-year-old female presented to the ED via EMS with altered level of alertness less than 24 hours after discharge from hospital. Patient received Narcan with slight improvement in alertness. Patient admitted to ICU for further medical monitoring. Patient with recent hospitalization 926 with increased pain status post fall and overdose. At that time patient was diagnosed with right 4 through [address] scan revealed fracture of left ilium extending to this superior acetabulum and left femoral head impaction/flattening. Ortho consult at that time felt fractures worst subacute no further interventions indicated. PMHX: Frequent falls (Chronic) Venous stasis ulcers of both lower extremities (Chronic) Aspiration pneumonia (Acute) PAF (paroxysmal atrial fibrillation) (Chronic) Degenerative scoliosis in adult patient (Chronic) Closed pelvic fracture (Acute) Multiple rib fractures (Acute) Cellulitis (Acute) Altered mental status (Acute) Opiate overdose (Acute) Anemia (Chronic) Pulmonary edema (Acute) Acute respiratory failure with hypoxia and hypercapnia (Acute) Abdominal hernia without obstruction and without gangrene (Chronic) Chronic atrial fibrillation (Chronic) Anasarca (Acute) Opioid overdose (Acute) Opioid use disorder, severe, on maintenance therapy, dependence (Acute) Closed fracture of left pelvis (Acute) Multiple closed fractures of ribs of right side (Acute) Ground-level fall (Acute) Viral URI (Acute) Leg wound, right (Acute) Low BP (Acute) Cellulitis of right leg (Chronic) New onset a-fib (Acute) Bilateral leg edema (Chronic) w stasis dermatitisRight leg weakness (Chronic) Frequent falls (Chronic) Microcytic anemia (Chronic) Ambulatory dysfunction (Acute) Lumbar spinal stenosis (Chronic) Primary osteoarthritis of left knee (Chronic) Transaminase or LDH elevation (Chronic) Tobacco use disorder (Chronic) Sleep disturbance (Chronic 07/18/05) Sedative, hypnotic or anxiolytic abuse (Chronic) [facility]; ? GRAND MAL SEIZURE, SECONDARY TO BENZO WITHDRAWAL 2006; one episode without any recurrence; occurred due to anxiety prior to incarceration Anxiety (Chronic 07/18/05) Medical History Displaced trimalleolar fracture of right ankle Gastric ulcer (08/18/05) 08/24 EGD: DUODENITIS; REACTIVE GASTROPATHY; ANTRAL ULCERATION; HYPERPLASTIC SQUAMOUS MUCOSA; NEG H. PYLORI Depression (07/18/05) history of 7 psych admissions 2010 Gastroparesis (07/18/05) Morbid obesity Chronic right-sided lumbar radiculopathy Osteoporosis Type 2 diabetes mellitus Essential hypertension History of fractured rib 09/12/23 Per [facility]. Left lateral 5th rib, anterior right rib 5&6. -hbCOPD (chronic obstructive pulmonary disease) Surgical History History of ankle surgery History of back surgery (10/17/17) L5-S1 facetectomy and lumbar body fusion Magnadottir UVN ULCER/STOMACH [facility]GERY 2006[facility]) RIGHT/ replacement of hip 2006 [facility]; HORSE ACCIDENTKNEE SURGERY 10/2014 LEFT KNEE; 01/2015 RIGHT KNEEEGD - MAC Cholecystectomy (~06/2013) Social History/Home Situation: Lives with her mother in a single level dwelling with 3 steps to enter railing upon entry. Has grab bars near toilet and bathroom. Equipment Owned/DME: Front wheel walker, 4 wheeled walker, bariatric front-wheeled walker, wheelchair Subjective: Pt reports her primary mode of mobility is wheelchair. She states she step turns from bed to commode or bed to w/c. She is able to get and prepare meals from the wheelchair. She utilizes online shopping to get most of her needs met, such as groceries, or medication refills. Objective: [] General Observation:groggy female supine in bed telemetry in place, erythema scabbed areas to RLE anteriorlateral crowley. Mental Status: Alert and Ox3 uncertain of all specifics that lead to hospitalization. Pt slightly agitated agreeable to participate in bed level evaluation. Pain: 8/10 back, left and right leg, left shoulder Vital Signs: monitored via telemetry throughout, O2 at 2 L via nasal cannula continuous ROM: Right Upper Extremity: Shoulder Flexion lacks the last 25% of AROM. Shoulder abduction lacks the last 25% of AROM. Elbow flexion WFL. Wrist flexion WFL. Functional opening and closing of hand WFL. Left Upper Extremity: Shoulder Flexion lacks the last 25% of AROM. Shoulder abduction lacks the last 25% of AROM. Elbow flexion WFL. Wrist flexion WFL. Functional opening and closing of hand WFL. Left Lower Extremity: Able to sit up at edge of bed to allow for 90 degrees of hip and knee flexion. Ankle dorsiflexion Neutral. Ankle plantarflexion WFL. Right Lower Extremity: Hip flexion WFL. Hip abduction WFL. Knee flexion WFL. Ankle dorsiflexion WFL. Ankle plantarflexion WFL. Strength: Right Upper Extremity: Shoulder flexors 3/5. Shoulder abductors 3-/5. Elbow flexors 4/5. Elbow extensors 4/5. Blocker And Cutter Contact Lens strong. Left Upper Extremity: Shoulder flexors 3/5. Shoulder abductors 3-/5. Elbow flexors 4/5. Elbow extensors 4/5. Blocker And Cutter Contact Lens strong. Left Lower Extremity: Hip flexors 2-/5. Hip abductors 2-/5. Knee flexors 2-/5. Knee extensors 2+/5. Ankle dorsiflexors 3-/5. Ankle plantarflexors 3. Right Lower Extremity:Hip flexors 3-/5. Hip abductors 2+/5. Knee flexors 2+/5. Knee extensors 3-/5. Ankle dorsiflexors 3/5. Ankle plantarflexors 3/5. Sensation: intact Bed Mobility/Transfers: [] Rolling to the right max assist of 2 patient able to assist with use of upper extremities Rolling to the left dependent x 2 secondary to severity of pain in left hip/pelvis Supine to sit unable to assess secondary to pain Sit to supine unable to assess secondary to pain Out of bed transfers unable to assess secondary to pain Gait: N/A patient is nonambulatory at baseline Balance: [] Static Sitting: Unable to perform Dynamic Sitting: Unable to perform Static Standing: Unable to perform Dynamic Standing: Unable to perform Special Tests: Mobility Limitations Standardized Measure [facility]-PAC 6 clicks Basic Mobility Inpatient Short Form: Raw Score: 7 CMS Score: 92.36% deficit/impairment Informed Consent/Education: Patient instructed in purpose of PT consult and plan of care. Assessment: Patient is a 64year old female referred to physical therapy services with the diagnosis of overdose. Patient presents with the following deficits: 1. Impaired strength/motor control bilateral lower extremities major muscle groups 2. Impaired functional activity tolerance 3. Pain left hip right lower extremity, left shoulder 4. Inability to participate in seated task due to severity of pain 5. Anxiousness 6. O2 dependent Impairments are contributing to the following functional limitations: 1. AMPAC score. Indicating high rate for readmission if discharged to community without supportive services 2. Decline in bed mobility skills 3. inability to perform transfers at this time 4. Increased time to perform functional tasks Patient is assessed as a Moderate 16269 complexity based on the following: History: 64-year-old female presenting with complex medical history and multiple comorbidities Examination: As stated above Presentation: Evolving Decision Making: Moderate Goals: Goals X1 week 1. Supine-Sit independent 2. Sit-Supine [independent 3. Sit-Stand standby assist 4. Stand-Sit standby assist 5. Bed-Chair standby assist pivot transfer with FWW 6. Chair-Bed standby assist with pivot transfer with FWW Plan of Care/Treatment Plan: 1-2x/day, 7 days/week x 1 week. Plan of care has been reviewed with the RADIO ENGINEERING TEACHER providing the service under Physical Therapy direction. Initiate Physical Therapy intervention for strengthening, bed mobility, transfers, gait, stairs, balance training, use of assistive device. DISCHARGE RECOMMENDATIONS: [] [] Home with no services [] [] Home with services [specify] [] Home with outpatient PT [] [x] SNF for continued rehabilitation however patient declines therefore recommend home health PT [] [facility] [] [] SNF versus LTC based on ability to participate and progress [] TREATMENT CODE/TIME: [id number]
--- NOTE | 2025-05-20 16:01 | W.ORTHOCONSU ---
Date of service: 05/20/25 Time of Service: 16:01 Assessment and Plan Assessment and plan (1) Left acetabular fracture: Status: Acute Assessment and plan: 64-year-old female with subacute healing left acetabular fracture. Orthopedics consulted again as the patient was readmitted to the hospital for similar problems with repeat CT scans obtained. No pelvis x-rays or Judet a views have been done. It is not clear when this fracture may have occurred. The patient is currently admitted for significant complicating medical and pain problems. See hospitalist note for details. Her left acetabular fracture is healing, and there has been no change on the new CT done 05/18/2025 compared to the prior done 05/13/2025. I agree with Dr. Jones's consult from 05/15/25. No specific restrictions are needed for the left hip. Continue to encourage safe ambulation, range of motion, hip and core strengthening. Medical optimization of her many other problems as best possible. She may follow-up as an outpatient with [facility] orthopedics for her complex orthopedic care. [facility] All Active Problems (Updated 05/20/25 @ 16:02 by Harrison Castaneda MD) Left acetabular fracture (Acute) Frequent falls (Chronic) Venous stasis ulcers of both lower extremities (Chronic) Aspiration pneumonia (Acute) PAF (paroxysmal atrial fibrillation) (Chronic) Degenerative scoliosis in adult patient (Chronic) Closed pelvic fracture (Acute) Multiple rib fractures (Acute) Cellulitis (Acute) Altered mental status (Acute) Opiate overdose (Acute) Anemia (Chronic) Pulmonary edema (Acute) Acute respiratory failure with hypoxia and hypercapnia (Acute) Abdominal hernia without obstruction and without gangrene (Chronic) Chronic atrial fibrillation (Chronic) Anasarca (Acute) Opioid overdose (Acute) Opioid use disorder, severe, on maintenance therapy, dependence (Acute) Closed fracture of left pelvis (Acute) Multiple closed fractures of ribs of right side (Acute) Ground-level fall (Acute) Viral URI (Acute) Leg wound, right (Acute) Low BP (Acute) Cellulitis of right leg (Chronic) New onset a-fib (Acute) Bilateral leg edema (Chronic) w stasis dermatitis Right leg weakness (Chronic) Frequent falls (Chronic) Microcytic anemia (Chronic) Ambulatory dysfunction (Acute) Lumbar spinal stenosis (Chronic) Primary osteoarthritis of left knee (Chronic) Transaminase or LDH elevation (Chronic) Tobacco use disorder (Chronic) Sleep disturbance (Chronic 07/18/05) Sedative, hypnotic or anxiolytic abuse (Chronic) [place]; ? GRAND MAL SEIZURE, SECONDARY TO BENZO WITHDRAWAL 2006; one episode without any recurrence; occurred due to anxiety prior to incarceration Anxiety (Chronic 07/18/05) Medical History Displaced trimalleolar fracture of right ankle Gastric ulcer (08/18/05) 08/24 EGD: DUODENITIS; REACTIVE GASTROPATHY; ANTRAL ULCERATION; HYPERPLASTIC SQUAMOUS MUCOSA; NEG H. PYLORI Depression (07/18/05) history of 7 psych admissions 2009 Gastroparesis (07/18/05) Morbid obesity Chronic right-sided lumbar radiculopathy Osteoporosis Type 2 diabetes mellitus Essential hypertension History of fractured rib 09/12/23 Per [facility]. Left lateral 5th rib, anterior right rib 5&6. -hb COPD (chronic obstructive pulmonary disease) Surgical History History of ankle surgery History of back surgery (10/17/17) L5-S1 facetectomy and lumbar body fusion Magnadottir UVN ULCER/STOMACH SURGERY 2007-[facility] Replacement of total knee joint (04/17/17) RIGHT/ Total replacement of hip 2006 [facility]; HORSE ACCIDENT KNEE SURGERY 10/2014 LEFT KNEE; 01/2015 RIGHT KNEE EGD - MAC Cholecystectomy (~06/2013) Family History Mother Essential hypertension Hyperlipidemia Stroke Grandfather Essential hypertension Stroke Father No problems noted. Grandmother Essential hypertension Stroke Grandfather Essential hypertension Stroke Grandmother No problems noted. Son No problems noted. Son No problems noted. Social History Smoking/Tobacco Use Status: Current every day Tobacco Type: cigarettes Second Hand Exposure: No Smoking risk assessment performed?: Yes Alcohol Intake: never Drug use: Never Substance use type: does not use Household members: family Housing: house Communication Needs: None Pets and animals: Yes Pets and animals: dog(s) Sexually active: No Do you think of yourself as: straight/heterosexual What is your relationship status?: How often do you talk on the phone with friends or family?: three or more times per week How often do you get together with friends or relatives?: decline to answer How often do you attend cheondoism or confucianism services?: 1-3 times per year Do you belong to any clubs or organized social groups?: no Panel score (0-1 are the most socially isolated patients): 1 What type of physical activity do you participate in: none Nikki/Roman Catholic: Episcopal Seatbelt use: always Drive intox or ride w/intox bus driver/monitor: No Do you feel safe at home: Yes Do you feel safe in your relationship?: Yes Results Last Vital Signs Temp 98.1 F 05/20/25 14:14 Pulse 78 05/20/25 14:03 Resp 16 05/20/25 14:03 BP 133/75 05/20/25 14:03 Pulse Ox 87 L 05/20/25 15:45 Labs 05/20/25 05:20 05/20/25 05:20 Labs: Laboratory Results - last 24 hr 05/19/25 05/20/25 02:30 05:20 WBC 5.79 RBC 3.91 L Hgb 7.4 L Hct 31.9 L MCV 82 MCH 18.9 L MCHC 23.2 L RDW 21.8 H Plt Count 359 MPV 9.5 Sodium 142 Potassium 4.3 Chloride 104 Carbon Dioxide 33.6 H Anion Gap 4.4 BUN 11 Creatinine 0.5 L Est GFR (CKD-EPI 2020) 105.98 Glucose 76 Calcium 8.8 Total Bilirubin 0.3 AST 19 ALT 9 L Alkaline Phosphatase 94 Total Protein 5.8 L Albumin 2.4 L Urine Fentanyl Screen Negative
[2025-05-20 19:31] LABS: Oxycodone Screen, U Presumptive Positive ng/mL (Cutoff: 100)
[2025-05-20] MEDS: Simvastatin 10 MG TAB 20 MG PO (19:57)
[2025-05-20] MEDS: Doxepin 50 MG CAP 200 MG PO (19:57)
[2025-05-21] VITALS (15 sets, daily range): BP systolic 125–149; BP diastolic 70–96; PULSE 61–141; RESP 16–24; TEMP 36.6–37.4; O2SAT 83–97
[2025-05-21] MEDS: Buprenorphine 2 MG SUBLINGUAL TABLET 0.5 MG SL ×3 (01:10→07:33)
[2025-05-21 05:41] LABS: HCT 34.2 % (36.0-46.0); MCH 18.6 pg (27.0-33.0); MCHC 24.0 % (32.0-36.0); MCV 78 fL (80-95); MPV 9.2 fL (8.0-11.0); Platelet Count 362 10^3/uL (130-400); RBC 4.40 10^6/uL (3.93-5.22); RDW-SD 59.9 fL; WBC 6.63 10^3/uL (4.4-10.8)
[2025-05-21 05:59] LABS: ALT 12 U/L (14-59); AST 11 U/L (15-37); Albumin 2.7 g/dL (3.4-5.0); Alkaline Phosphatase 100 U/L (46-116); Anion Gap 4.7 mmol/L (3-11); BUN 9 mg/dL (7-18); Bilirubin, Total 0.4 mg/dL (0.2-1.0); CO2 36.3 mmol/L (21.0-32.0); Calcium 8.9 mg/dL (8.5-10.1); Chloride 102 mmol/L (98-107); Estimated GFR 111.83 (mL/min/1.73m2); Glucose 101 mg/dL (74-106); Potassium 3.9 mmol/L (3.5-5.1); Sodium 143 mmol/L (136-145); Total Protein 6.2 g/dL (6.4-8.2)
[2025-05-21 06:18] LABS: RDW 22.1 % (11.7-14.6)
[2025-05-21 06:19] LABS: HGB 8.2 g/dL (11.2-15.7)
--- NOTE | 2025-05-21 08:16 | PDOC.CMPRO ---
Date of service: 05/21/25 Time of Service: 08:17 Care Management Progress Note Progress Note Text Progress Note Text: Maryjane transitioned to the MS floor today and was awake and able to engage in conversation when CM met with her. Patient agreed to a [facility] evaluation for support with connecting to outpatient services (coordinated by CM.) Outpatient follow up with [facility] is planned via Zoom vs their mobile unit, as patient is homebound. No safety plan was deemed necessary at this time. Anticipate patient will discharge home with resumption of [facility] RN for wound care, add PT/OT/[facility] [facility]. Declines SNF for STR.CM will continue to follow. Discharge Potential Discharge Needs: Consult Consult Services Needed: Other ([facility]) and PCP F/U Appt Anticipated Barriers to Discharge: None Identified Patient/Family Education Needs: Review discharge instructions, discuss Ask Me Three Transportation: Private vehicle (Lift assist will be needed) Plan: Maryjane will discharge home with resumption of [facility] RN, add PT, OT, [facility] [employer] SAFETY once medically ready. Patient will transport via private vehicle with family, lift assist will be needed (she prefers to be met by Bennie Camarena and coordinated her own lift assist last time.) Maryjane will follow up with community providers and continue per her discharge plan of care. Outpatient clinical assessment with [facility] via will be held via Zoom vs mobile unit. CM will continue to follow Social Determinants of Health Screening Will the Patient Participate in the Screening?: Unable to obtain Do you worry about having a steady place to live?: choose not to answer
[2025-05-21] MEDS: ARIPiprazole 15 MG TAB 30 MG PO (09:40)
[2025-05-21] MEDS: ARIPiprazole 5 MG TAB 10 MG PO (09:41)
[2025-05-21] MEDS: Metoprolol CR 25 MG TABCR PO (09:41)
[2025-05-21] MEDS: Enoxaparin 40 MG/0.4 ML SYR SC (09:41)
[2025-05-21] MEDS: DULoxetine 30 MG CAP 60 MG PO (09:41)
[2025-05-21] MEDS: Lidocaine 5% Patch 1 PATCH TP (09:41)
[2025-05-21] MEDS: Normal Saline Flush 10 ML SYR IVP ×2 (09:42→21:13)
[2025-05-21] MEDS: HYDROmorphone 4 MG TAB PO ×3 (10:01→18:06)
[2025-05-21 10:12] LABS: Xylazine, Confirmation Urine Negative ng/mL (<50)
--- NOTE | 2025-05-21 11:22 | PGE_ITS ---
Date of Service Date of service: 05/21/25 Time of Service: 11:22 Assessment and Plan Assessment and plan (1) Opiate overdose: Start date: 05/18/25 Status: Acute Assessment and plan: Second hospitalizatoin this week for oversedation from her prescribed narcotics, only home 1 night. She cleared off of her methadone during her last hospital stay. Urine send-outs for polysubstance negative for fentanyl/xylazine, just show prescribed opioids. She did respond to naloxone confirming opioid overdose, she confirms accidental, and she has been alert since 05/20. She needs an alternative to methadone. We discussed options, initiated 3 day low dose titration of buprenorphine, use hydromorphone bridge for the first 2 days, on day #2 today. 05/22 I would treat with full dose buprenophine 8mg BID. This should be sufficient to treat pain, so hydromorphone can be stopped. She could get another up to 8mg prn per day as prn if necessary, but very possible she won't need this. Any more than 24mg/day is unlikely to give her additional releif. (2) Degenerative scoliosis in adult patient: Status: Chronic Assessment and plan: This is cause of her chronic pain. Also recent injuries including left hip related to falls. Need alternate pain regimen as above. (3) Acute respiratory failure with hypoxia and hypercapnia: Status: Acute Assessment and plan: Initially related to opioid overdose, as she improved hypercapnea normalizing, but still hypoxica. Then treated for aspiration, but imaging not c/w aspiration . Off antibiotics since 05/19. Has some chronic pulmonary congestion. Hypoxia at night again last night, likely undiagnosed NATALIE. Will give a dose of furosemide to see if it helps her breathing. (4) PAF (paroxysmal atrial fibrillation): Status: Chronic Assessment and plan: Paeoxysmal, continue metoprolol. Not on fdc anticoagulation but should consider as [id number] is 3 (if h/o DM, 2 otherwise with h/o HFpEF and female). (5) Venous stasis ulcers of both lower extremities: Status: Chronic Assessment and plan: Wound care consulted, needs chronic management. Compression as tolerated. (6) Depression: Assessment and plan: H/o severe depression, not acutely depressed or suicidal now. She is on ariprazole along with full dose SNRI as well as TCA, which is not typical, but will defer to primary care. She does not appear to be in seratonin syndrome. (7) Frequent falls: Status: Chronic Assessment and plan: Patient does have acute injury to her left shoulder and does have her left hand swollen. XRs negative for acute fracture but she has subacute fractures of left hip. Ortho and PT consulted, no surgical intervention warranted. She may be more appropriate for SNF level care given chronic disability, but she has been resistant to this. She should be ready for home vs placement on 05/22 VTE: enoxaparin Subjective Subjective Patient reports: feels better and tolerating a regular diet; denies nausea, vomiting or fever Interval history since last seen: She feels okay, hydromorphone helps pain, starting to get more this morning after not taking overnight. States SL buprenorphine doesn't work. She didn't want to remove paige yesterday. She is not very mobile at baseline, in wheelchair, didn't get to work with PT yesterday as they requested ortho input first. She doesn't fee SOB at rest, not coughing, but needed O2 overnight Exam Narrative Exam Narrative: GEN: A&O x 3, NAD. Pupils 4mm room air Lungs: Normal effort, no wheezing, slight rale right base CV: RRR, no murmur ABD: soft, NT, large hernia noted, not distended Ext: no cyanosis. skin dry, venous stasis sabrina, ulcers on right lower leg. Objective Last Vital Signs Temp 36.6 C 05/21/25 10:00 Pulse 87 05/21/25 10:00 Resp 19 05/21/25 10:00 BP 154/90 H 05/20/25 20:02 Pulse Ox 93 05/21/25 10:00 Laboratory Results - last 24 hr 05/19/25 05/21/25 02:30 05:34 WBC 6.63 RBC 4.40 Hgb 8.2 L Hct 34.2 L MCV 78 L D MCH 18.6 L MCHC 24.0 L RDW 22.1 H Plt Count 362 MPV 9.2 Sodium 143 Potassium 3.9 Chloride 102 Carbon Dioxide 36.3 H Anion Gap 4.7 BUN 9 Creatinine 0.4 L Est GFR (CKD-EPI 2020) 111.83 Glucose 101 Calcium 8.9 Total Bilirubin 0.4 AST 11 L ALT 12 L Alkaline Phosphatase 100 Total Protein 6.2 L Albumin 2.7 L Ur Oxycodone Screen Presumptive Positive A Urine Fentanyl Screen Negative Time Spent with Patient Time Spent with Patient: 35-49 minutes Time was spent: preparing to see the patient(eg.review tests), obtaining and/or reviewing separately otained hiistory, ordering medications,tests, procedures, referring, communicating with other health healthcare account manager, indepentently interpreting results, counseling the patient and care coordination
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
--- NOTE | 2025-05-21 12:39 | PTTR_ITS ---
PT Notes Visit Reasons: Opioid Overdose Physical Therapy Treatment Note Date: 05/21/2025 Precautions: Fall risk. Standard precautions. Villatoro catheter, telemetry PATIENT DOES NOT ALLOW SAFETY BELT OR HANDS ON HER TO ASSIST Subjective: Pt reports she is more awake and feeling better. Patient states she is going home in 1 to 2 days. Objective: General Observation: Patient supine in bed with 2 L/min vis NC, Villatoro in place , Mental Status: Alert and oriented x 4 Pain: reported pain in right LEand Left shoulder. Pt premedicated prior to PT entering room Vital Signs: Closely monitored by nursing staff via telemetry throughout. Pt HR increased to 143 with seated at EOB tasks Bed Mobility/Transfers: Maximal cueing provided for use of B hands as needed for support, movement sequence, and posture to reduce fall risk and minimize pain report rolling B directions with rail Max A of 2 supine with HOB at 30 degrees to sit at EOB Max A of 1 Sit to 3/4 stand: contact guard assist x 1 x 5 trials ( pt does not allow hands on her or safety belt) 3/4Stand?sit: contact guard assist x 1 x 5 trials Balance: Static Sitting: Good with bilateral upper extremity support Dynamic Sitting: Fair minus Static Standing: Unable Dynamic Standing: Unable TherEX: Supine active assistive range of motion right lower extremity hip knee ankle, active assistive range of motion left lower extremity hip knee and ankle Heel slides, internal/external rotation of hip, abduction adduction hip short arc quad pillow under knee ankle pumps x 10 reps ASSESSMENT:?? Pt demonstrate improvement in level of participation and willingness to be seated at edge of bed. Patient able to assist with mobility in bed and to get to edge of bed. Patient attempted stand from bed however unable to achieve upright position. Patient able to stand for 5 repetitions allowing for adjustments to bed linen. Patient is very fearful and states I have to feel comfortable and safe to do transfers. Patient limited by unwillingness to allow staff to apply safety belt or provide hands-on assistance to aid her in achieving upright position and/or assisting with pivot transfer. Patient tolera lukasz seated at edge of bed x 15 minutes. Patient became fatigued after sit to stand trials stating that's enough . Patient pleased with her ability to perform seated activity. Plan of Care/Treatment Plan: 1-2x/day, 7 days/week x 1 week. Plan of care has been reviewed with the EXIT BOOTH AGENT providing the service under Physical Therapy direction. Initiate Physical Therapy intervention for strengthening, bed mobility, transfers, gait,, balance training, use of assistive device. DISCHARGE RECOMMENDATIONS: [] Home with no services [] [X] Home with services PT [] Home with outpatient PT [] [] SNF for continued rehabilitation. [] [facility] [] [] SNF versus LTC based on ability to participate and progress [] TREATMENT CODE/TIME: 49529, [id number]
[2025-05-21] MEDS: Buprenorphine 2 MG SUBLINGUAL TABLET 1 MG SL ×3 (12:41→21:14)
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
--- NOTE | 2025-05-21 13:45 | W.PC.ACHO ---
Registration Status: ADM IN Primary Language: Preferred Language: Mohawk ED Information & Data Chief Complaint AMS/LOC 05/18/25 14:57 Chief Complaint OD/Poison 05/18/25 14:54 Triage Note Pt BIBA after being found 05/18/25 14:45 unresponsive by home nurse. EMS states pills surrounded pt in bed. EMS administered 4mg narcan total and 4mg zofran. Pt responsive to painful stimuli upon entering ED. Medical / Surgical History (Last Reviewed 05/18/25 @ 18:45 by Rom Carrillo) Displaced trimalleolar fracture of right ankle Gastric ulcer (08/18/05) Depression (07/18/05) Gastroparesis (07/18/05) Morbid obesity Chronic right-sided lumbar radiculopathy Osteoporosis Type 2 diabetes mellitus Essential hypertension History of fractured rib COPD (chronic obstructive pulmonary disease) (Last Reviewed 05/18/25 @ 18:45 by Rom Carrillo) History of ankle surgery History of back surgery (10/17/17) ULCER/STOMACH SURGERY Replacement of total knee joint (04/17/17) Total replacement of hip KNEE SURGERY EGD - MAC Cholecystectomy (~06/2013) Most Recent Vital Signs Temperature 36.7 C 05/21/25 12:47 Temperature Source Temporal Artery Scan 05/20/25 14:14 Pulse 86 05/21/25 12:47 Pulse 115 H 05/21/25 12:47 Respiratory Rate 22 05/21/25 12:47 Respiratory Effort Normal 05/18/25 20:50 Respiratory Depth Normal 05/18/25 20:50 Respiratory Pattern Bradypnea 05/18/25 20:50 Blood Pressure 149/96 H 05/21/25 12:47 Blood Pressure Mean 114 05/21/25 12:47 Blood Pressure Position Sitting 05/18/25 20:50 Pulse Oximetry 85 L 05/21/25 12:47 Oxygen Delivery Method Room Air 05/21/25 07:20 Oxygen Flow Rate 0 05/21/25 07:20 Pain Level 6 05/20/25 16:26 Allergies No Known Drug Allergies Allergy (Unknown, Verified 05/13/25 21:52) none Precautions Isolation Standard precaution 05/18/25 14:57 Active Medications Generic Name Dose Route Start Last Admin Trade Name Freq PRN Reason Stop Dose Admin Aripiprazole 30 mg 05/20/25 08:30 05/21/25 09:40 Aripiprazole 15 Mg Tab PO 30 mg DAILY TAINA Administration Aripiprazole 10 mg 05/20/25 08:30 05/21/25 09:41 Aripiprazole 5 Mg Tab PO 10 mg DAILY TAINA Administration Buprenorphine HCl 1 mg 05/21/25 08:00 05/21/25 12:41 Buprenorphine 2 Mg Sublingual Tablet SL 05/22/25 07:00 1 mg Q3H TAINA Administration Diclofenac Sodium 75 mg 05/18/25 21:08 05/20/25 09:42 Diclofenac Sodium 75 Mg Tabec PO 75 mg BID PRN PRN Administration back pain Doxepin HCl 200 mg 05/18/25 21:18 05/20/25 19:57 Doxepin 50 Mg Cap PO 200 mg HS TAINA Administration Duloxetine HCl 60 mg 05/19/25 08:30 05/21/25 09:41 Duloxetine 30 Mg Cap PO 60 mg DAILY TAINA Administration Enoxaparin Sodium 40 mg 05/19/25 08:30 05/21/25 09:41 Enoxaparin 40 Mg/0.4 Ml Syr SC 40 mg DAILY TAINA Administration Hydromorphone HCl 4 mg 05/20/25 08:39 05/21/25 10:01 Hydromorphone 4 Mg Tab PO 4 mg Q4H PRN PRN Administration Acetaminophen 1,000 mg in 100 mls @ 400 mls/hr 05/19/25 06:59 05/20/25 07:00 Ofirmev IVPB Infused Q6H PRN PRN Infusion Lidocaine 1 patch 05/19/25 08:30 05/21/25 09:41 Lidocaine 5% Patch TP 1 patch DAILY TAINA Administration Metoprolol Succinate 25 mg 05/20/25 08:30 05/21/25 09:41 Metoprolol Cr 25 Mg Tabcr PO 25 mg DAILY TAINA Administration Miconazole Nitrate 0 gm 05/19/25 11:14 05/20/25 09:43 Miconazole 2% Topical Powder 85 Gm Btl TP 1 applic TID PRN PRN Administration Miscellaneous 1 each 05/19/25 20:30 05/20/25 22:09 Patch Removal Lidocaine TP Not Given Q24H TAINA Simvastatin 20 mg 05/19/25 20:00 05/20/25 19:57 Simvastatin 10 Mg Tab PO 20 mg HS TAINA Administration Sodium Chloride 0 ml 05/18/25 15:51 05/19/25 01:24 Normal Saline Flush 10 Ml Syr IVP 30 ml PRN PRN Administration Sodium Chloride 50 ml 05/18/25 16:00 05/18/25 15:53 Normal Saline - Diluent 50 Ml Vial IJ 50 ml DIRECTED TAINA Administration Sodium Chloride 0 ml 05/18/25 21:08 05/21/25 09:42 Normal Saline Flush 10 Ml Syr IVP 10 ml BID TAINA Administration IV IV Catheter Type [Right Hand] Saline Lock IV Catheter Type [Left Saline Lock Antecubital] IV Catheter Gauge [Right Hand] 18 IV Catheter Gauge [Left 20 Antecubital] Diagnostics 05/21/25 05/19/25 Range/Units 05:34 02:30 WBC 6.63 (4.4-10.8) 10^3/uL RBC 4.40 (3.93-5.22) 10^6/uL Hgb 8.2 L (11.2-15.7) g/dL Hct 34.2 L (36.0-46.0) % MCV 78 L D (80-95) fL MCH 18.6 L (27.0-33.0) pg MCHC 24.0 L (32.0-36.0) % RDW 22.1 H (11.7-14.6) % Plt Count 362 (130-400) 10^3/uL MPV 9.2 (8.0-11.0) fL Sodium 143 (136-145) mmol/L Potassium 3.9 (3.5-5.1) mmol/L Chloride 102 (98-107) mmol/L Carbon Dioxide 36.3 H (21.0-32.0) mmol/L Anion Gap 4.7 (3-11) mmol/L BUN 9 (7-18) mg/dL Creatinine 0.4 L (0.55-1.02) mg/dL Est GFR (CKD-EPI 2020) 111.83 (mL/min/1.73m2) Glucose 101 (74-106) mg/dL Calcium 8.9 (8.5-10.1) mg/dL Total Bilirubin 0.4 (0.2-1.0) mg/dL AST 11 L (15-37) U/L ALT 12 L (14-59) U/L Alkaline Phosphatase 100 (46-116) U/L Total Protein 6.2 L (6.4-8.2) g/dL Albumin 2.7 L (3.4-5.0) g/dL U Noroxymorphone LCMSMS Pending Ur Oxycodone Screen Presumptive Positive A (Cutoff: 100) ng/mL U Noroxycodone LC/MS/MS Pending Ur Oxycodone LC/MS/MS Pending Ur Oxycodone Interp Pending Ur Oxymorphone LC/MS/MS Pending Urine Fentanyl Screen Negative (<1) ng/mL Urine Xylazine Negative (<50) ng/mL Intake and Output - 24 Hour Total 05/18/25 14:38 thru 05/21/25 13:23 Intake Total 5727.417 Output Total 4770 Balance 957.417 Weight 106.4 kg Intake: IV 3385.417 Oral 2342 Output: Urine 4770 Other: Urine Color Yellow Urine Appearance Clear Comment At this time patient urine appears significantly clearer to prior, possibly with minor cloudiness. Stool Size Moderate Stool Characteristics Soft Formed Brown Urinary Catheter Urinary Catheter Date of 05/18/25 Insertion [Urethral (Villatoro)] Time of insertion [Urethral ( 16:30 Villatoro)] Falls Risk Assessment History of Falls Previous History 05/18/25 20:50 Contributing Factors Medications 05/18/25 20:50 Ambulatory Aids Uses ambulatory device 05/18/25 14:57 Tubes/Lines W/no contributing factors 05/18/25 20:50 Gait Evaluation W/no contributing factors 05/18/25 20:50 Cognition Cognitive impairment 05/18/25 20:50 Fall Total Score 53 05/18/25 20:50 Level of Risk High Risk 05/18/25 20:50 Problems (Last Reviewed 05/18/25 @ 18:45 by Rom Carrillo) Left acetabular fracture (Acute) Frequent falls (Chronic) Venous stasis ulcers of both lower extremities (Chronic) Aspiration pneumonia (Acute) PAF (paroxysmal atrial fibrillation) (Chronic) Degenerative scoliosis in adult patient (Chronic) Opiate overdose (Acute) Acute respiratory failure with hypoxia and hypercapnia (Acute) Notes 05/19/25 17:36 Nursing Notes by Molly Domínguez Pt laying in bed, crying help me over and over. Attempts made to help her- she wants her Mom, but can't remember the number, can't dial the phone. Has dropped 2 glasses of water and ale jacey, the last requiring a complete bed change and bath. Want's hot coffee, but she cannot hold the cup without dropping it. I will not give her hot coffee at this time due to inability to manage cups of fluid. O2 changed to nasal cannula at 2 L, this she is keeping on. Initialized on 05/19/25 17:36 - END OF NOTE v v v v v v v v v Sending and/or Receiving Nurses: Please use comment section below to note any information pertinent to the patient hand-off not included above. Information / Comments: Pt is AOx4, c/o constant pain in several locations: lower back, chest barton, hips, and left shoulder. VS are remarcable for O2 sat in mid 80 range 85-88% which seems to be her BL. HR is in 120 with afib on telemetry. Breathing sounds are diminished bilaterally in bases, no wheezing. RUQ abdominal hernia, redusable, non painful, chronic. R knee abrasion covered with mepilex, no signs of infection. yeast infection of abdominal folds.Bed bath done today, nystatin powder applied. Villatoro catheter is in place and drains per gravity - 1400ml since 7 am. PT worked with the pt today. Pt`s mother is at bedside. The son is taken off from [facility] per pt`s request. LAC 20 G and RW 18G are patent. Report received from:Matti Perez RN
[2025-05-21] MEDS: Acetaminophen 325 MG TAB 650 MG PO (16:02)
--- NOTE | 2025-05-21 16:20 | PDOC.MHCN ---
Date of service: 05/21/25 Time of Service: 14:44 PHQ-9 Over the last 2 weeks, how often have you been bothered by any of the following problems? 1. Little interest or pleasure in doing things: several days 2. Feeling down, depressed, or hopeless: more than half the days 3. Trouble falling or staying asleep, or sleeping too much: several days 4. Feeling tired or having little energy: several days 5. Poor appetite or overeating: not at all 6. Feeling bad about yourself - or that you are a failure or have let yourself and your family down: several days 7. Trouble concentrating on things, such as reading the newspaper or watching television: several days 8. Moving or speaking so slowly that other people could have noticed? - Or the opposite - being so fidgety or restless that you have been moving around a lot more than usual: not at all 9. Thoughts that you would be better off or of hurting yourself in some way: not at all Total score: 7 If you checked off any problems, how difficult have these problems made it for you to do your work, take care of things at home, or get along with other people?: somewhat difficult PHQ-9 Results: Negative Source: Developed by Drs. Rohith Amato, Cherelle Sanches, Johann Tilley and colleagues, with an educational brandon from [employer]. Suicide Severity Rate CSSRS Have you wished you were or wished you could go to sleep and not wake up?: No Have you actually had any thoughts of killing yourself?: No CSSRS3 Have you ever done anything, started to do anything or prepared to do anything to end your life?: No CSSRS4 Was this within the past three months?: No Screening Score Total Score: 0 Screening: Negative Mental Health Emergency Note Release [facility] release signed:: No Reason for Visit MS Cline is a 64 year old single female who resides in [facility]. The client reports that she has overdosed on oxycodone and methadone and fell down then woke up and called 911. The client denies SI and HI. The states she lives by herself and is on social security disability. The client reports having a friend who helps her. The client states her primary care doctor visits her due to mobility issues. The client states that she wants someone to talk with. The client reports watching TV as a coping mechanism. The client stated three times she was done with the questions when this clinician attempted to create a safety plan for managing medications. A referral will be made for therapy. In the last 2 weeks has the pt presented for ES prior to today?: No Asssessment/Mental Status Appearance: Disheveled Attitude: Cooperative and Friendly Behavior: Unremarkable Speech: Normal Affect: Normal Mood: Irritable Thought process: Poverty of content Hallucinations: No evidence Delusions: No evidence Attention: Unremarkable Perception: Not impaired Orientation: Fully orientated Insight: Poor Judgement: Poor Impression MS Cline is a 64 year old single female who resides in [facility]. The client reports that she has overdosed on oxycodone and methadone and fell down then woke up and called 911. The client denies SI and HI. The states she lives by herself and is on social security disability. The client reports having a friend who helps her. The client states her primary care doctor visits her due to mobility issues. The client states that she wants someone to talk with. The client reports watching TV as a coping mechanism. The client stated three times she was done with the questions when this clinician attempted to create a safety plan for managing medications. A referral will be made for therapy.? Plan/Disposition Recommended Disposition: [facility] Services [facility] Services: Therapy. Plan: The client will discharge when medically able to do so and follow up with out patient therapy services. Reports/communication Outcome discussed with: ED/Personnel (Discussed with care managers)
--- NOTE | 2025-05-21 18:11 | NUR.NOTE ---
Nursing Note: Pt keeps taking off her NC despite O2 sats on RA at 83-85%. Pt educated. Provider notified
[2025-05-21] MEDS: Doxepin 50 MG CAP 200 MG PO (21:14)
[2025-05-21] MEDS: Simvastatin 10 MG TAB 20 MG PO (21:14)
[2025-05-22 06:30] LABS: Noroxycodone-by LC-MS/MS 4223 ng/mL (Cutoff: 25); Noroxymorphone-by LC-MS/MS 334 ng/mL (Cutoff: 25); Oxycodone Interpretation Positive.; Oxycodone-by LC-MS/MS 490 ng/mL (Cutoff: 25); Oxymorphone-by LC-MS/MS 834 ng/mL (Cutoff: 25)
[2025-05-22 07:47] VITALS: BP 149/86; PULSE 72; RESP 16; TEMP 36.7; O2SAT 94
[2025-05-22] MEDS: Enoxaparin 40 MG/0.4 ML SYR SC (09:34)
[2025-05-22] MEDS: HYDROmorphone 4 MG TAB PO (09:34)
[2025-05-22] MEDS: DULoxetine 30 MG CAP 60 MG PO (09:35)
[2025-05-22] MEDS: Metoprolol CR 25 MG TABCR PO (09:36)
[2025-05-22] MEDS: ARIPiprazole 15 MG TAB 30 MG PO (09:36)
[2025-05-22] MEDS: ARIPiprazole 5 MG TAB 10 MG PO (09:37)
[2025-05-22] MEDS: Normal Saline Flush 10 ML SYR IVP (09:38)
[2025-05-22 11:14] VITALS: BP 143/88; PULSE 93; RESP 16; TEMP 36.3; O2SAT 80
--- NOTE | 2025-05-22 12:08 | PDOC.HHF2F_ITS ---
Date of service: 05/22/25 Time of Service: 12:08 Home Health Referral Home Health Orders Clinical synopsis of why skilled professionals are needed: Chronic pain, chronic opiate use, frequent falls, a-fib Registered Nurse: Check all that apply Instruct on new or changed medication(s)/assess compliance: Ordered Assess for exacerbation of medical condition, instruct patient/caregivers on sig ns and symptoms to report for early detection: Ordered (worsening back pain; leg weakness) Physical Therapist: Check all that apply Increase strength & endurance for safe mobility at home: Ordered To design/establish home maintenance program: Ordered Fall reduction therapy program for patient with history of frequent falls: Ordered Home safety evaluation and teaching/gait training including stair management (if applicable): Ordered Occupational Therapist: Evaluate and treat for patient unable to perform ADL/IADL/self-care: Ordered Exceptional Needs Teacher: Assist with community resources: Ordered Home Bound Status Requires the aid of supportive device (check all that apply): Wheelchair Patient has a condition such that leaving home is medically contraindicated (Describe): Bilateral lower extremity weakness, frequent falls; chronic low back pain; awaiting surgery Encounter Date and Reason: I certify that a FTF encounter for this patient was performed on May 22, 2025 and that such encounter was related to the primary reason the patient requires h ome health services. The encounter was conducted in the following manner: * By me as the certifying physician, HYDROELECTRIC PLANT MAINTAINER, PA or * By an inpatient physician, HYDROELECTRIC PLANT MAINTAINER or PA during an inpatient stay who communicated findings to me, Certification And Authentication I certify that I composed the above information based on my clinical judgment relating to this patient's medical condition and, if applicable, clinical findings communicated to me by the NPP or inpatient physician who performed the FTF encounter. Name of Provider that will be monitoring home health services: Shahzad Olivarez
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
--- NOTE | 2025-05-22 12:49 | RESPIRATORY ---
1252 Patient denies SOB, pt declines to have oxygen at home. Pt SPO2 85% on RA, per RN SPO2 was down into the 70%s on RA. RN had put pt on 2L, pt stated to me that this made no difference in her breathing (though SPO2 did climb into the 90s) and plan is for pt to go home so O2 was taken off by this R and SPO2 is around 82% with no SOB. [id number] checked pt SPO2 on RA. Difficult to get accurate SPO2 and ranged from the 70%s to the 90%s and pt denied SOB.
--- NOTE | 2025-05-22 12:57 | CMDISCH_ITS ---
Date of service: 05/22/25 Time of Service: 12:57 LACE Index Scoring Tool Questions: Length of Stay (in days): 4 - 6 Was the patient admitted via the E.D.?: Yes Comorbidities: PVD, Diabetes w/o Complication, Chronic Pulmonary Disease and Liver or Renal Disease E.D. 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 She will follow up with her community providers including her PCP and Palliative Care. Maryjane requested EMS transport but was informed it is not medically necessary. She asked the out of pocket cost. CM contacted [email or web address] and was informed that [facility] transport costs between $840 and $1350 and an additional $29/mile. Maryjane declined the EMS transport and requested RCT. Patient/Family Education Needs: Review discharge instructions, limitations, follow up plan and discuss Ask Me Three Services Needed at Discharge: Home Health Care Services and Transportation SDOH Health Related Social Needs: Health related social needs lonely/isolated Health related social needs details Patient intubated, unable to answer.
[2025-05-22 13:02] VITALS: PULSE 98; RESP 16; O2SAT 86
[2025-05-22 14:00] VITALS: PULSE 54; O2SAT 79; O2SAT 82; O2SAT 88; O2SAT 89
--- NOTE | 2025-05-22 14:08 | PT.INTREAT ---
PT Notes Visit Reasons: Opioid Overdose Inpatient Physical Therapy Treatment Note [facility] Date: 05/22/25 PRECAUTIONS:Fall precautions SUBJECTIVE: Pt states she wants to try to get onto the commode. She hopes to go home today. OBJECTIVE: ? PAIN: Chronic back pain with chronic opiod use VITALS: spO2 ranging from 83-91% on 1 L/min throughout session, RT present during session making adjustments as needed, pt now agreeable to home O2 Therapeutic Activities ([id number]): Direct one-on-one instruction in dynamic activities to improve functional performance. ? BED MOBILITY/TRANSFERS? Rolling L/R: min assist Supine-sit: min assist ? Sit-supine: min assist ? Sit-stand: min assist ? Stand-sit: min assist ? Bed-Chair: min assist ? Chair-bed: min assist Ambulation: unable to perform Provided skilled cues and instruction on performance and technique throughout. Exercises performed: LAQs, seated heel raises x10 bilat ASSESSMENT:?Pt required assistance for all forms of mobility. She performed stand pivot transfers today to and from the commode but needed min assist to remain safe throughout the movement. Returning home is not a safe d/c plan but she is refusing all forms of short term rehab even though it continues to be the safest option. She is a high risk of hospital readmission. PLAN: Likely will d/c to home today due to refusal of STR recommendation TREATMENT CODE/TIME: Ther Act (11414) x3 - 45 min
[2025-05-22 14:33] VITALS: BP 136/78; PULSE 97; RESP 18; TEMP 36.8; O2SAT 93
== END 2025-05-22 17:45 | disposition home health service (06) | DRG 917 ==
LOC: ER 15:35 → ICU 20:27 → MS 05-21 14:07
PROVIDERS: Admitting Provider Family Medicine; Emergency Provider Emergency Medicine; PCP Family Medicine; Responsible Provider Family Medicine; Visit Provider Family Medicine
DX: M41.50 Other secondary scoliosis, site unspecified; I48.0 Paroxysmal atrial fibrillation; E11.43 Type 2 diabetes mellitus with diabetic autonomic (poly)neuropathy; I10 Essential (primary) hypertension; M81.0 Age-related osteoporosis without current pathological fracture; E66.01 Morbid (severe) obesity due to excess calories; Z68.39 Body mass index [BMI] 39.0-39.9, adult; M54.16 Radiculopathy, lumbar region; I83.018 Varicose veins of right lower extremity with ulcer other part of lower leg; I83.028 Varicose veins of left lower extremity with ulcer other part of lower leg; L97.918 Non-pressure chronic ulcer of unspecified part of right lower leg with other specified severity; L97.928 Non-pressure chronic ulcer of unspecified part of left lower leg with other specified severity; R29.6 Repeated falls; K31.84 Gastroparesis; F33.1 Major depressive disorder, recurrent, moderate; T40.3X1A Poisoning by methadone, accidental (unintentional), initial encounter; J96.01 Acute respiratory failure with hypoxia; J96.02 Acute respiratory failure with hypercapnia; F11.921 Opioid use, unspecified with intoxication delirium; J44.9 Chronic obstructive pulmonary disease, unspecified; K43.9 Ventral hernia without obstruction or gangrene; S40.012A Contusion of left shoulder, initial encounter; W19.XXXA Unspecified fall, initial encounter; D64.9 Anemia, unspecified; F41.9 Anxiety disorder, unspecified; F17.210 Nicotine dependence, cigarettes, uncomplicated; R53.1 Weakness; Z96.653 Presence of artificial knee joint, bilateral; Z96.641 Presence of right artificial hip joint; G89.29 Other chronic pain; G47.33 Obstructive sleep apnea (adult) (pediatric); S32.492D Other specified fracture of left acetabulum, subsequent encounter for fracture with routine healing
CPT/HCPCS: 00123; 36415; 51702; 74177; 80053; 80307; 80348; 80365; 80375; 82805; 83690; 85027; 87637; 93005; 96127; 96361; 96374; 97110; 97162; 97530; 99221; 99291; J1650; 70450; 71045; 71260; 72125; 73020; 73120; 80320; 80329; 81003; 83605; 83735; 84443; 84484; 85025; 93010; 94760; 99223; 99232; 99233; 99238; J0131; J0295; J3490

== ENCOUNTER 2025-06-09 20:16 | Inpatient (IN) | payer MEDICARE, SELFPAY ==
[2025-06-09] VITALS (62 sets, daily range): BP systolic 76–165; BP diastolic 41–121; PULSE 36–141; RESP 10–28; TEMP 36.8; O2SAT 85–100
--- NOTE | 2025-06-09 20:00 | RT.EKG_ITS ---
APPROVED REPORT Exam: Resting ECG Reason for Exam: AMS Patient Location: E HR:122 bpm ECG Measurements Heart Rate 122 AXIS VT [id number] P [id number] QRSd 89 QRS 45 QT 325 T -22 QTc 464 Conclusion Atrial fibrillation, rate 122 Significant baseline wander/movement artiface No STEMI within the limitations of this EKG
[2025-06-09] MEDS: Etomidate 20 MG/10 ML VIAL (20:28)
[2025-06-09] MEDS: Rocuronium 50 MG/5 ML SYR (20:29)
[2025-06-09] MEDS: PROPOFOL 1,000 MG/100 ML BTL 14.4 MG IV_INF (20:33)
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
[2025-06-09] MEDS: fentaNYL 1,000 MCG in Normal Saline 80 ML 5.7 MCG IV_INF (20:50)
[2025-06-09 20:55] LABS: Abs Immature Grans 0.02 10^3/uL (0.0-0.06); BE (Venous) 5 mmol/L (-2-3); HCO3 (Venous) 31 mmol/L (23-28); HCT 37.1 % (36.0-46.0); HGB 8.9 g/dL (11.2-15.7); Immature Grans % 0.3 %; MCH 18.6 pg (27.0-33.0); MCHC 24.0 % (32.0-36.0); MCV 78 fL (80-95); MPV 9.6 fL (8.0-11.0); O2 Sat (Venous) 68 %; Platelet Count 339 10^3/uL (130-400); RBC 4.78 10^6/uL (3.93-5.22); RDW 20.6 % (11.7-14.6); RDW-SD 57.1 fL; TCO2 (Venous) 30 mmol/L (24-29); WBC 6.79 10^3/uL (4.4-10.8); pO2 (Venous) 41 mmHg
[2025-06-09 21:02] LABS: pCO2 (Venous) 68 mmHg (41-51)
[2025-06-09 21:15] LABS: INR 1.1 (0.9-1.1); Prothrombin Time 10.7 sec (9.1-11.1)
--- NOTE | 2025-06-09 21:15 | DI.RAD_ITS ---
Exam(s) XR PORTABLE CHEST AP EXAM: XR PORTABLE CHEST AP CLINICAL HISTORY: intubated TECHNIQUE: 2D digital imaging was performed. Portable supine. COMPARISON: CR XR PORTABLE CHEST AP from 05/19/2025 FINDINGS: The exam is extremely limited by overlying abdominal soft tissues and under penetration. An endotracheal tube has been placed which appears in satisfactory position above the level of the aprveen. Nasogastric tube has been placed which projects below the diaphragm. LUNGS: Vascular prominence and diffuse increased pulmonary markings consistent with CHF. No gross pleural abnormality seen. HEART: Partially obscured. AORTA: Normal diameter. BONES: Unremarkable for age. Soft tissues: Unremarkable. IMPRESSION: Satisfactory placement of endotracheal and nasogastric tubes. Severe bilateral pulmonary infiltrates versus CHF. DATA REPOSITORY: RADIATION DOSE DELIVERED:
[2025-06-09 21:20] LABS: Anisocytosis 2+; Hypochromasia 1+; Salicylate < 2.8 mg/dL (<2.8)
[2025-06-09 21:21] LABS: Acetaminophen < 2 ug/mL (10-30); Poikilocytes 1+
[2025-06-09 21:28] LABS: ALT 15 U/L (14-59); AST 9 U/L (15-37); Albumin 3.4 g/dL (3.4-5.0); Alkaline Phosphatase 110 U/L (46-116); Anion Gap 6.1 mmol/L (3-11); BUN 20 mg/dL (7-18); Bilirubin, Total 0.4 mg/dL (0.2-1.0); CO2 33.9 mmol/L (21.0-32.0); Calcium 9.0 mg/dL (8.5-10.1); Chloride 101 mmol/L (98-107); Glucose 100 mg/dL (74-106); Magnesium 2.2 mg/dL (1.8-2.4); Potassium 3.7 mmol/L (3.5-5.1); Sodium 141 mmol/L (136-145); Total Protein 7.4 g/dL (6.4-8.2); Troponin I 13 ng/L (<or=51)
[2025-06-09 21:32] LABS: Glucose Negative (Negative)
[2025-06-09] MEDS: Norepinephrine in D5W 8 MG/250 ML BAG 10 MG IV (21:35)
[2025-06-09 21:36] LABS: RBC Negative HPF (0-2)
[2025-06-09 21:37] LABS: C & S Indicated? No
[2025-06-09 21:40] LABS: Cannabinoids THC Negative (Negative)
--- NOTE | 2025-06-09 22:04 | DI.CT_ITS ---
Exam(s) CT HEAD WO EXAM: CT HEAD WO CLINICAL HISTORY: c/f hypoxic brain injury. TECHNIQUE: Imaging Protocol: Axial computed tomography images with coronal and sagittal reformatted images were created and reviewed COMPARISON: CT CT HEAD WO from 01/14/[address] HEAD CERVICAL SPINE WO from 05/13/2025 FINDINGS: Ventricles and Extra axial spaces: Normal in size and morphology for the patient's age. Hemorrhage: None. Cerebral parenchyma: The grace-white matter differentiation is maintained. There are no areas of decreased attenuation to suggest an acute infarct or mass effect. Midline shift: None. Brainstem/Cerebellum: Normal. Calvarium: Normal. Visualized Paranasal sinuses/Mastoids: There is mild mucosal thickening in the visualized paranasal sinuses. The mastoid air cells are clear. Soft Tissues: Unremarkable. IMPRESSION: 1. No acute intracranial process. 2. The preliminary [facility] report was reviewed. RADIATION DOSE DELIVERED: 841.56mGy.cm Total DLP DATA REPOSITORY: All CT scans at this facility are submitted to the National Radiology Data Registry (NRDR) Dose Index Registry (DIR) with the [employer] (A[employer]). RADIATION OPTIMIZATION: All CT scans at this facility use at least one of these dose optimization techniques: automated exposure control; mA and/or kV adjustment per patient size (includes targeted exams where dose is matched to clinical indication); or iterative reconstruction.
[2025-06-09 22:26] LABS: BE (Venous) 5 mmol/L (-2-3); HCO3 (Venous) 30 mmol/L (23-28); O2 Sat (Venous) 87 %; TCO2 (Venous) 28 mmol/L (24-29); pCO2 (Venous) 47 mmHg (41-51); pO2 (Venous) 51 mmHg
--- NOTE | 2025-06-09 22:32 | NUR.NOTE ---
assumed care of PT from Lucretia Viera Note:
[2025-06-09 22:46] LABS: Troponin I 13 ng/L (<or=51)
[2025-06-09] MEDS: Normal Saline 1,000 ML 1000 ML IV (22:52)
--- NOTE | 2025-06-09 23:11 | DI.VRAD_ITS ---
PROCEDURE INFORMATION: Exam: XR Chest Exam date and time: 06/09/2025 9:07 PM Age: 64 years old Clinical indication: Other: Intubated TECHNIQUE: Imaging protocol: Radiologic exam of the chest. Views: 1 view. COMPARISON: CR XR PORTABLE CHEST AP 05/19/2025 6:47 AM FINDINGS: Tubes, catheters and devices: Endotracheal tube now in place with the tip in good position approximately 5.8 cm above the parveen. Esophagogastric tube in place with the distal end not visualized but at least as far as the gastroesophageal junction. Lungs: Diffuse bilateral pulmonary vascular prominence and infiltrates throughout both lungs appears similar to the earlier study Pleural spaces: Unremarkable. No pleural effusion. No pneumothorax. Heart/Mediastinum: Unremarkable. No cardiomegaly. Bones/joints: Unremarkable. IMPRESSION: Appropriate position of the endotracheal tube. Stable diffuse bilateral pulmonary infiltrates. Dictated and Authenticated by: John Almeida MD. Orderin [facility]armad Viveros MD
--- NOTE | 2025-06-09 23:15 | DI.VRAD_ITS ---
PROCEDURE INFORMATION: Exam: CT Head Without Contrast Exam date and time: 06/09/2025 9:50 PM Age: 64 years old Clinical indication: Other: C/f hypoxic brain injury TECHNIQUE: Imaging protocol: Computed tomography of the head without contrast. Radiation optimization: All CT scans at this facility use at least one of these dose optimization techniques: automated exposure control; mA and/or kV adjustment per patient size (includes targeted exams where dose is matched to clinical indication); or iterative reconstruction. COMPARISON: CT HEAD CERVICAL SPINE WO 05/18/2025 3:58 PM FINDINGS: Brain: Moderate generalized cerebral atrophy. No intracranial mass, hemorrhage or evidence of acute ischemia. Cerebral ventricles: No ventriculomegaly. Paranasal sinuses: Visualized sinuses are unremarkable. No fluid levels. Mastoid air cells: Visualized mastoid air cells are well aerated. Bones: Unremarkable. No acute fracture. Soft tissues: Unremarkable. IMPRESSION: No acute intracranial abnormality Dictated and Authenticated by: John Almeida MD. Orderin [facility] Sarmad Viveros MD
--- NOTE | 2025-06-09 23:19 | NUR.NOTE ---
after several attempts to get peripheral IV by RN. ED MD at bedside for ultrasound IV placement Nursing Note:
--- NOTE | 2025-06-09 23:20 | NUR.NOTE ---
2300 after infiltration ED MD notified. R arm elevated and monitored per ED MD. Nursing Note:
--- NOTE | 2025-06-09 23:46 | NUR.NOTE ---
23:43 L AC IV infiltrated. ED MD aware. ED MD at bedside for IJ placement Nursing Note:
[2025-06-10] VITALS (124 sets, daily range): BP systolic 70–158; BP diastolic 39–117; PULSE 42–152; RESP 12–23; TEMP 36.4–36.6; O2SAT 81–99
[2025-06-10] LABS: Troponin I 13 ng/L (<or=51)
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
--- NOTE | 2025-06-10 00:18 | NUR.NOTE ---
line placement verified by Xray. ED ok with line use at this timeNursing Note:
[2025-06-10] MEDS: PROPOFOL 1,000 MG/100 ML BTL 32.4 MG IV_INF ×2 (00:20→03:11)
--- NOTE | 2025-06-10 00:26 | DI.RAD_ITS ---
Exam(s) XR PORTABLE CHEST AP POST LINE EXAM: XR PORTABLE CHEST AP POST LINE CLINICAL HISTORY: line placement TECHNIQUE: 2D digital imaging was performed. Portable supine COMPARISON: CR,XR XR PORTABLE CHEST AP from 06/09/2025 FINDINGS: Stable positioning of endotracheal tube and nasogastric tube. A left-sided internal jugular line has been placed. The tip projects in the cavoatrial junction. LUNGS: Severe bilateral pulmonary infiltrates and vascular prominence, similar to prior.. No pleural abnormality seen. HEART: Normal size. AORTA: Normal diameter. BONES: Unremarkable for age. Soft tissues: Unremarkable. IMPRESSION: Satisfactory placement of left internal jugular central line. Stable bilateral infiltrates. DATA REPOSITORY: RADIATION DOSE DELIVERED:
--- NOTE | 2025-06-10 00:33 | DI.VRAD_ITS ---
PROCEDURE INFORMATION: Exam: XR Chest Exam date and time: 06/10/2025 12:25 AM Age: 64 years old Clinical indication: Device placement; Other: Central line TECHNIQUE: Imaging protocol: Radiologic exam of the chest. Views: 1 view. COMPARISON: CR XR PORTABLE CHEST AP 06/09/2025 9:07 PM FINDINGS: Tubes, catheters and devices: Left IJ central line in good position with the tip in the cavoatrial junction. Endotracheal tube remains in good position with the tip 4 cm above the parveen. Esophagogastric tube remains in place. Lungs: Diffuse bilateral pulmonary infiltrates appear stable Pleural spaces: Unremarkable. No pleural effusion. No pneumothorax. Heart/Mediastinum: Unremarkable. No cardiomegaly. Bones/joints: Unremarkable. IMPRESSION: Appropriate position of left IJ central line and endotracheal tube. Stable diffuse bilateral pulmonary infiltrates. Dictated and Authenticated by: John Almeida MD. Orderin St. Sarmad Viveros MD
--- NOTE | 2025-06-10 00:44 | W.PC.ACHO ---
Registration Status: REG ER Primary Language: Preferred Language: Armenian ED Information & Data Chief Complaint AMS/LOC 06/09/25 21:29 Triage Note PT's mother was watching TV 06/09/25 20:11 with the PT when she noticed that the PT was not alert. Called 911 sighting concern about her altered mental status. Hx of polypharmacy Medical / Surgical History (Last Reviewed 05/18/25 @ 18:45 by Rom Carrillo) Displaced trimalleolar fracture of right ankle Gastric ulcer (08/18/05) Depression (07/18/05) Gastroparesis (07/18/05) Morbid obesity Chronic right-sided lumbar radiculopathy Osteoporosis Type 2 diabetes mellitus Essential hypertension History of fractured rib COPD (chronic obstructive pulmonary disease) (Last Reviewed 05/18/25 @ 18:45 by Rom Carrillo) History of ankle surgery History of back surgery (10/17/17) ULCER/STOMACH SURGERY Replacement of total knee joint (04/17/17) Total replacement of hip KNEE SURGERY EGD - MAC Cholecystectomy (~06/2013) Most Recent Vital Signs Temperature 36.8 C 06/09/25 20:54 Temperature Source Temporal Artery Scan 06/09/25 20:54 Pulse 68 06/10/25 00:30 Pulse 105 H 06/10/25 00:30 Respiratory Rate 20 06/10/25 00:30 Blood Pressure 117/71 06/10/25 00:30 Blood Pressure Mean 81 06/10/25 00:30 Blood Pressure Position Sitting 06/09/25 20:54 Pulse Oximetry 83 L 06/10/25 00:30 Respiratory End-tidal CO2 42 06/09/25 23:26 Oxygen Delivery Method Room Air 06/09/25 20:54 Oxygen Flow Rate 0 06/09/25 20:54 Fraction of Inspired Oxygen (FIO2) 30 06/09/25 23:26 Allergies No Known Drug Allergies Allergy (Unknown, Verified 05/13/25 21:52) none Active Medications Generic Name Dose Route Start Last Admin Trade Name Freq PRN Reason Stop Dose Admin Fentanyl 1,000 mcg/ Sodium 100 mls @ 0 mls/hr 06/09/25 20:45 06/10/25 00:29 Chloride IV_INF 22.8 mls/hr INFUSION TAINA 22.8 mls/hr Protocol Titration Per Protocol Norepinephrine Bitartrate 8 mg in 250 mls @ 0 mls/hr 10/22/25 21:30 06/09/25 23:44 IV 0 mls/hr INFUSION TAINA 0 mls/hr Protocol Titration Per Protocol Propofol 1,000 mg in 100 mls @ 0 mls/hr 06/09/25 22:30 06/10/25 00:12 Diprivan IV_INF Infused INFUSION TAINA Titration Protocol Per Protocol Propofol 1,000 mg in 100 mls @ 0 mls/hr 06/10/25 00:30 06/10/25 00:29 Diprivan IV_INF 32.4 mls/hr INFUSION TAINA 32.4 mls/hr Protocol Titration Per Protocol IV IV Catheter Type [Left Triple Lumen Subclavian Internal Jugular] IV Catheter Type [Left Saline Lock Antecubital] IV Catheter Type [Left Wrist] Peripheral IV IV Catheter Type [Right Peripheral IV Antecubital] IV Catheter Gauge [Left 18 Antecubital] IV Catheter Gauge [Left Wrist] 20 IV Catheter Gauge [Right 14 Antecubital] Diet Orders Category Date Time Status Nothing Per Oral [DIET] Nutrition 06/10/25 00:11 Active Diagnostics 06/10/25 06/09/25 06/09/25 Range/Units 05:35 23:37 22:23 WBC Pending (4.4-10.8) 10^3/uL RBC Pending (3.93-5.22) 10^6/uL Hgb Pending (11.2-15.7) g/dL Hct Pending (36.0-46.0) % MCV Pending (80-95) fL MCH Pending (27.0-33.0) pg MCHC Pending (32.0-36.0) % RDW Pending (11.7-14.6) % Plt Count Pending (130-400) 10^3/uL MPV Pending (8.0-11.0) fL Immature Gran % Pending % Neutrophils % Pending % Lymphocytes % Pending % Monocytes % Pending % Eosinophils % Pending % Basophils % Pending % Nucleated RBC % (0.0-0.3) % Absolute Neutrophils Pending (1.2-6.7) 10^3/uL Absolute Lymphocytes Pending (1.2-3.4) 10^3/uL Absolute Monocytes Pending (0.1-0.8) 10^3/uL Absolute Eosinophils Pending (0.0-0.7) 10^3/uL Absolute Basophils Pending (0.0-0.2) 10^3/uL RBC Morphology Hypochromasia Poikilocytosis Anisocytosis PT (9.1-11.1) sec INR (0.9-1.1) VBG pH 7.41 (7.31-7.41) VBG pCO2 47 (41-51) mmHg VBG pO2 51 mmHg VBG HCO3 30 H (23-28) mmol/L VBG Total CO2 28 (24-29) mmol/L VBG O2 Saturation 87 % VBG Base Excess 5 H (-2-3) mmol/L Sodium Pending (136-145) mmol/L Potassium Pending (3.5-5.1) mmol/L Chloride Pending (98-107) mmol/L Carbon Dioxide Pending (21.0-32.0) mmol/L Anion Gap Pending (3-11) mmol/L BUN Pending (7-18) mg/dL Creatinine Pending (0.55-1.02) mg/dL Est GFR (CKD-EPI 2020) Pending (mL/min/1.73m2) Glucose Pending (74-106) mg/dL Calcium Pending (8.5-10.1) mg/dL Magnesium (1.8-2.4) mg/dL Total Bilirubin Pending (0.2-1.0) mg/dL AST Pending (15-37) U/L ALT Pending (14-59) U/L Alkaline Phosphatase Pending (46-116) U/L Troponin I 13 13 (<or=51) ng/L Total Protein Pending (6.4-8.2) g/dL Albumin Pending (3.4-5.0) g/dL Urine Color (Yellow) Urine Clarity (Clear) Urine pH (5-8) Ur Specific [place] (1.005-1.025) Urine Protein (Neg-Trace) mg/dL Urine Ketones (Negative) mg/dL Urine Blood (Negative) Urine Nitrite (Negative) Urine Bilirubin (Negative) Urine Urobilinogen (Up to 0.2) mg/dL Ur Leukocyte Esterase (Negative) Urine RBC (0-2) HPF Urine WBC (0-5) HPF Ur Epithelial Cells (Negative) HPF Urine Crystals (Negative) HPF Urine Bacteria (Negative) HPF Urine Casts (Negative) LPF Urine Mucus (Negative) Ur Culture Indicated? Urine Glucose (Negative) mg/dL Salicylates (<2.8) mg/dL Urine Opiates Screen (Negative) Urine Methadone Screen (Negative) Acetaminophen (10-30) ug/mL Ur Barbiturates Screen (Negative) Ur Tricyclics Screen (Negative) Ur Amphetamines Screen (Negative) U Benzodiazepines Scrn (Negative) Urine Cocaine Screen (Negative) Ur THC Screen (Negative) Ethyl Alcohol (<10) mg/dL 06/09/25 06/09/25 Range/Units 21:20 20:48 WBC 6.79 (4.4-10.8) 10^3/uL RBC 4.78 (3.93-5.22) 10^6/uL Hgb 8.9 L (11.2-15.7) g/dL Hct 37.1 (36.0-46.0) % MCV 78 L (80-95) fL MCH 18.6 L (27.0-33.0) pg MCHC 24.0 L (32.0-36.0) % RDW 20.6 H (11.7-14.6) % Plt Count 339 (130-400) 10^3/uL MPV 9.6 (8.0-11.0) fL Immature Gran % 0.3 % Neutrophils % 59.1 % Lymphocytes % 23.7 % Monocytes % 6.3 % Eosinophils % 9.7 % Basophils % 0.9 % Nucleated RBC % 0.0 (0.0-0.3) % Absolute Neutrophils 4.01 (1.2-6.7) 10^3/uL Absolute Lymphocytes 1.61 (1.2-3.4) 10^3/uL Absolute Monocytes 0.43 (0.1-0.8) 10^3/uL Absolute Eosinophils 0.66 (0.0-0.7) 10^3/uL Absolute Basophils 0.06 (0.0-0.2) 10^3/uL RBC Morphology See Below Hypochromasia 1+ Poikilocytosis 1+ Anisocytosis 2+ PT 10.7 (9.1-11.1) sec INR 1.1 (0.9-1.1) VBG pH 7.27 L (7.31-7.41) VBG pCO2 68 H* (41-51) mmHg VBG pO2 41 mmHg VBG HCO3 31 H (23-28) mmol/L VBG Total CO2 30 H (24-29) mmol/L VBG O2 Saturation 68 % VBG Base Excess 5 H (-2-3) mmol/L Sodium 141 (136-145) mmol/L Potassium 3.7 (3.5-5.1) mmol/L Chloride 101 (98-107) mmol/L Carbon Dioxide 33.9 H (21.0-32.0) mmol/L Anion Gap 6.1 (3-11) mmol/L BUN 20 H (7-18) mg/dL Creatinine 0.6 (0.55-1.02) mg/dL Est GFR (CKD-EPI 2020) 101.42 (mL/min/1.73m2) Glucose 100 (74-106) mg/dL Calcium 9.0 (8.5-10.1) mg/dL Magnesium 2.2 (1.8-2.4) mg/dL Total Bilirubin 0.4 (0.2-1.0) mg/dL AST 9 L (15-37) U/L ALT 15 (14-59) U/L Alkaline Phosphatase 110 (46-116) U/L Troponin I 13 (<or=51) ng/L Total Protein 7.4 (6.4-8.2) g/dL Albumin 3.4 (3.4-5.0) g/dL Urine Color Yellow (Yellow) Urine Clarity Clear (Clear) Urine pH 6.0 (5-8) Ur Specific [place] 1.025 (1.005-1.025) Urine Protein 30 H (Neg-Trace) mg/dL Urine Ketones Negative (Negative) mg/dL Urine Blood Negative (Negative) Urine Nitrite Negative (Negative) Urine Bilirubin Negative (Negative) Urine Urobilinogen 1.0 H (Up to 0.2) mg/dL Ur Leukocyte Esterase Negative (Negative) Urine RBC Negative (0-2) HPF Urine WBC 3-5 (0-5) HPF Ur Epithelial Cells Moderate (Negative) HPF Urine Crystals Negative (Negative) HPF Urine Bacteria Few (Negative) HPF Urine Casts 5-10 Hyaline (Negative) LPF Urine Mucus Moderate (Negative) Ur Culture Indicated? No Urine Glucose Negative (Negative) mg/dL Salicylates < 2.8 (<2.8) mg/dL Urine Opiates Screen Positive A (Negative) Urine Methadone Screen Positive A (Negative) Acetaminophen < 2 (10-30) ug/mL Ur Barbiturates Screen Negative (Negative) Ur Tricyclics Screen Positive A (Negative) Ur Amphetamines Screen Negative (Negative) U Benzodiazepines Scrn Negative (Negative) Urine Cocaine Screen Negative (Negative) Ur THC Screen Negative (Negative) Ethyl Alcohol < 3.0 (<10) mg/dL Intake and Output - 24 Hour Total 06/09/25 20:04 thru 06/10/25 00:29 Intake Total 305.520 Balance 305.520 Weight 114 kg Intake: IV 305.520 Other: Urine Color Yellow Urine Appearance Clear Urinary Catheter Urinary Catheter Date of 06/09/25 Insertion [Urethral (Villatoro)] Time of insertion [Urethral ( 21:20 Villatoro)] Falls Risk Assessment History of Falls Previous History 06/09/25 20:54 Contributing Factors Unstable,Impairments 06/09/25 20:54 Ambulatory Aids Uses ambulatory device + 06/09/25 20:54 Tubes/Lines With any additional score 06/09/25 20:54 Gait Evaluation W/any additional score 06/09/25 20:54 Cognition No cognitive impairment 06/09/25 20:54 Fall Total Score 91 06/09/25 20:54 Level of Risk Maximum Risk 06/09/25 20:54 Restraint Information Behavior Requiring Restraints/ Harm to Patient Seclusion Note restraints cont for ET tube protection Notes 06/10/25 00:18 Nursing Notes by Richar Rae line placement verified by Xray. ED MD ok with line use at this timeNursing Note: Initialized on 06/10/25 00:18 - END OF NOTE 06/09/25 23:46 Nursing Notes by Richar Rae 23:43 L AC IV infiltrated. ED MD aware. ED MD at bedside for IJ placement Nursing Note: Initialized on 06/09/25 23:46 - END OF NOTE 06/09/25 23:20 Nursing Notes by Richar Rae 2300 after infiltration ED MD notified. R arm elevated and monitored per ED MD. Nursing Note: Initialized on 06/09/25 23:20 - END OF NOTE 06/09/25 23:19 Nursing Notes by Richar Rae after several attempts to get peripheral IV by RN. ED MD at bedside for ultrasound IV placement Nursing Note: Initialized on 06/09/25 23:19 - END OF NOTE 06/09/25 22:32 Nursing Notes by Richar Rae assumed care of PT from Lucretia Viera Note: Initialized on 06/09/25 22:32 - END OF NOTE v v v v v v v v v Sending and/or Receiving Nurses: Please use comment section below to note any information pertinent to the patient hand-off not included above. Information / Comments:found unresponsive after taking too much of her opioid medication, for which she has a history of misuse. EMS gave narcan which improved RR, but still not protecting airway. Is now intubated. Propofol, and Fentanyl drips infusing. Had Norepinephrine, which is now paused. Has borderline maps, so may restart. Report received from:richar Cooley RN
[2025-06-10] MEDS: fentaNYL 1,000 MCG in Normal Saline 80 ML 22.8 MCG IV_INF (02:49)
[2025-06-10] MEDS: cefTRIAXone 1 GM VIAL (03:02)
[2025-06-10] MEDS: Normal Saline Flush 10 ML SYR IVP ×3 (03:05→06:47)
[2025-06-10] MEDS: IRON SUCROSE COMPLEX 200 MG in Normal Saline 100 ML 400 MG IVPB (03:19)
[2025-06-10] MEDS: DEXTROSE 5%-0.45% SALINE 1,000 ML 100 ML IV ×2 (04:08→14:12)
[2025-06-10 05:36] LABS: BE (Venous) 8 mmol/L (-2-3); HCO3 (Venous) 33 mmol/L (23-28); O2 Sat (Venous) 76 %; TCO2 (Venous) 32 mmol/L (24-29); pCO2 (Venous) 52 mmHg (41-51); pO2 (Venous) 41 mmHg
[2025-06-10 05:52] LABS: Abs Immature Grans 0.02 10^3/uL (0.0-0.06); HCT 28.4 % (36.0-46.0); HGB 7.1 g/dL (11.2-15.7); Immature Grans % 0.3 %; MCH 19.2 pg (27.0-33.0); MCHC 25.0 % (32.0-36.0); MCV 77 fL (80-95); MPV 9.4 fL (8.0-11.0); Platelet Count 270 10^3/uL (130-400); RBC 3.69 10^6/uL (3.93-5.22); RDW 20.0 % (11.7-14.6); RDW-SD 56.1 fL; WBC 5.97 10^3/uL (4.4-10.8)
[2025-06-10 05:59] LABS: ALT 7 U/L (14-59); AST 9 U/L (15-37); Albumin 2.4 g/dL (3.4-5.0); Alkaline Phosphatase 82 U/L (46-116); Anion Gap 3.1 mmol/L (3-11); BUN 17 mg/dL (7-18); Bilirubin, Total 0.2 mg/dL (0.2-1.0); CO2 33.9 mmol/L (21.0-32.0); Calcium 8.4 mg/dL (8.5-10.1); Chloride 105 mmol/L (98-107); Glucose 93 mg/dL (74-106); Potassium 3.5 mmol/L (3.5-5.1); Sodium 142 mmol/L (136-145); Total Protein 5.2 g/dL (6.4-8.2)
[2025-06-10 06:16] LABS: Hypochromasia 2+
[2025-06-10] MEDS: Norepinephrine in D5W 8 MG/250 ML BAG 9.4 MG IV (06:34)
[2025-06-10] MEDS: PROPOFOL 1,000 MG/100 ML BTL 28.1 MG IV_INF (06:43)
--- NOTE | 2025-06-10 08:23 | W.PULMCC ---
General Date of Service Date of service: 06/10/25 Time of Service: 08:00 Reason for Admission to ICU: Respiratory failure Assessment and Plan Assessment and plan (1) Respiratory failure: Status: Acute (2) Shock: Status: Acute (3) Chronic atrial fibrillation: Status: Chronic (4) Altered mental status: Status: Acute Recommendations Pulmonary: Assessment: 1. Acute hypoxemic respiratory failure - due to opioid overdose +/- aspiration, +/- pulmonary edema 2. Pulmonary infiltrates - could represent aspiration or pulmonary edema 3. Shock - septic vs sedation related - currently on levophed 5 mcg/min 4. Suspected opioid overdose - on methadone as outpatient. 5. Afib - rate controlled 6. Microcytic anemia - likely iron deficiency - Ferritin last Recommendations: - hold sedation. Once more alert and following commands may be ready for breathing trial - given shock, diffuse infiltrates and recent hospitalizations, change antibiotics to vancomycin, zosyn, and levaquin. Check sputum culture and procal - continue D5NS at 100 ml/hr - if not extubated today, plan to start tube feeding - titrate down levophed for MAP > 65. If unable to titrate off today, can place art line, but I suspect with sedation off her BP will improve - she is high risk for DVT. She has chronic anemia and no current signs of active bleeding. Recommend lovenox for DVT ppx Discussed with Dr. Huitron I&O: Intake & Output 06/07/25 06/08/25 06/09/25 06/10/25 23:59 23:59 23:59 23:59 Intake Total 205.240 / 623.599 5438.804 / 1256.804 Output Total 450 / 450 Balance 205.240 / 205.240 806.804 / 806.804 Weight 114 kg 110 kg Code Status: Resuscitation Status Full Code Subjective Critical and life-threatening events over the past 24 hours: Patient is a 64 yo with a history of polysubstance abuse, afib, and tobacco abuse, who was admitted on 06/10 for acute respiratory failure. She was found down by EMS. Brought to the ED and intubated for encephalopathy and suspected opioid overdose. Has been a recurrent issue for her in the recent past. Last admission was earlier this month, but did not require intubation at that time. CXR showed diffuse, patchy infiltrates. Was hypotensive overnight and started on levophed. Currently sedated with propofol, fentanyl. On FiO2 30%. Had mild secretions overnight. ROS: unable to obtain ROS due to clinical status Exam Narrative Exam Narrative: General: intubated, sedated Head: normocephalic, ET tube in place ENT: no stridor, trachea midline CV: normal rate, irregular rhythm Respiratory: no wheezing, no crackles, bilateral rhonchi, no prolonged expiration GI: abd soft, non-distended Skin: no rashes Extremities: +1 edema, no digital clubbing Neuro: sedated Most Recent VS/Results Last Vital Signs Temp 36.6 C 06/10/25 06:09 Pulse 53 L 06/10/25 05:01 Resp 18 06/10/25 07:42 BP 75/42 L 06/10/25 07:42 Pulse Ox 92 06/10/25 06:15 Laboratory Results - last 24 hr 06/09/25 06/09/25 06/09/25 20:48 21:20 22:23 WBC 6.79 RBC 4.78 Hgb 8.9 L Hct 37.1 MCV 78 L MCH 18.6 L MCHC 24.0 L RDW 20.6 H Plt Count 339 MPV 9.6 Immature Gran % 0.3 Neutrophils % 59.1 Lymphocytes % 23.7 Monocytes % 6.3 Eosinophils % 9.7 Basophils % 0.9 Nucleated RBC % 0.0 Absolute Neutrophils 4.01 Absolute Lymphocytes 1.61 Absolute Monocytes 0.43 Absolute Eosinophils 0.66 Absolute Basophils 0.06 RBC Morphology See Below Hypochromasia 1+ Poikilocytosis 1+ Anisocytosis 2+ PT 10.7 INR 1.1 VBG pH 7.27 L 7.41 VBG pCO2 68 H* 47 VBG pO2 41 51 VBG HCO3 31 H 30 H VBG Total CO2 30 H 28 VBG O2 Saturation 68 87 VBG Base Excess 5 H 5 H Sodium 141 Potassium 3.7 Chloride 101 Carbon Dioxide 33.9 H Anion Gap 6.1 BUN 20 H Creatinine 0.6 Est GFR (CKD-EPI 2020) 101.42 Glucose 100 Calcium 9.0 Magnesium 2.2 Total Bilirubin 0.4 AST 9 L ALT 15 Alkaline Phosphatase 110 Troponin I 13 13 Total Protein 7.4 Albumin 3.4 Urine Color Yellow Urine Clarity Clear Urine pH 6.0 Ur Specific [place] 1.025 Urine Protein 30 H Urine Ketones Negative Urine Blood Negative Urine Nitrite Negative Urine Bilirubin Negative Urine Urobilinogen 1.0 H Ur Leukocyte Esterase Negative Urine RBC Negative Urine WBC 3-5 Ur Epithelial Cells Moderate Urine Crystals Negative Urine Bacteria Few Urine Casts 5-10 Hyaline Urine Mucus Moderate Ur Culture Indicated? No Urine Glucose Negative Salicylates < 2.8 Urine Opiates Screen Positive A Urine Methadone Screen Positive A Acetaminophen < 2 Ur Barbiturates Screen Negative Ur Tricyclics Screen Positive A Ur Amphetamines Screen Negative U Benzodiazepines Scrn Negative Urine Cocaine Screen Negative Ur THC Screen Negative Ethyl Alcohol < 3.0 06/09/25 06/10/25 23:37 05:25 WBC 5.97 RBC 3.69 L Hgb 7.1 L Hct 28.4 L MCV 77 L MCH 19.2 L MCHC 25.0 L RDW 20.0 H Plt Count 270 MPV 9.4 Immature Gran % 0.3 Neutrophils % 63.4 Lymphocytes % 22.4 Monocytes % 5.4 Eosinophils % 8.2 Basophils % 0.3 Nucleated RBC % 0.0 Absolute Neutrophils 3.78 Absolute Lymphocytes 1.34 Absolute Monocytes 0.32 Absolute Eosinophils 0.49 Absolute Basophils 0.02 RBC Morphology See Below Hypochromasia 2+ Poikilocytosis Anisocytosis PT INR VBG pH 7.41 VBG pCO2 52 H VBG pO2 41 VBG HCO3 33 H VBG Total CO2 32 H VBG O2 Saturation 76 VBG Base Excess 8 H Sodium 142 Potassium 3.5 Chloride 105 Carbon Dioxide 33.9 H Anion Gap 3.1 BUN 17 Creatinine 0.5 L Est GFR (CKD-EPI 2020) 105.98 Glucose 93 Calcium 8.4 L Magnesium Total Bilirubin 0.2 AST 9 L ALT 7 L Alkaline Phosphatase 82 Troponin I 13 Total Protein 5.2 L Albumin 2.4 L Urine Color Urine Clarity Urine pH Ur Specific [place] Urine Protein Urine Ketones Urine Blood Urine Nitrite Urine Bilirubin Urine Urobilinogen Ur Leukocyte Esterase Urine RBC Urine WBC Ur Epithelial Cells Urine Crystals Urine Bacteria Urine Casts Urine Mucus Ur Culture Indicated? Urine Glucose Salicylates Urine Opiates Screen Urine Methadone Screen Acetaminophen Ur Barbiturates Screen Ur Tricyclics Screen Ur Amphetamines Screen U Benzodiazepines Scrn Urine Cocaine Screen Ur THC Screen Ethyl Alcohol Time spent with patient Time spent in Critical Care: 36 Time spent in Critical care included: Performing procedures not included in c.c time, Coordination of care, Chart review, Documenting critically ill care, Time at immediate bedside and Discussing critically ill care with other medical staff
[2025-06-10] MEDS: Nystatin POWDER 15 GM JAR TP ×2 (08:30→14:38)
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
[2025-06-10 08:40] LABS: Procalcitonin < 0.10 ng/mL
[2025-06-10] MEDS: PIPERACILLIN/TAZO 4.5 GM in Normal Saline 100 ML IVPB ×2 (09:44→14:10)
[2025-06-10] MEDS: Enoxaparin 40 MG/0.4 ML SYR SC ×2 (09:45→21:11)
[2025-06-10 10:15] LABS: BE 6 mmol/L (-2-3); HCO3 32 mmol/L (22-26)
[2025-06-10 10:16] LABS: FIO2 32 %
[2025-06-10] MEDS: levoFLOXacin 750 MG/150 ML BAG 100 MG IVPB (12:01)
[2025-06-10] MEDS: VANCOMYCIN/WATER (PEG) 2 GM/400 ML BAG IVPB (12:02)
--- NOTE | 2025-06-10 14:12 | PHA.REVIEW2 ---
Pharmacy Admission Review Admission Clinical Review Admission Pharmacy Review: Shock (Acute) Respiratory failure (Acute) Cellulitis (Acute) Altered mental status (Acute) Opioid use disorder, severe, on maintenance therapy, dependence (Acute) Low BP (Acute) No Known Drug Allergies Allergy (Unknown, Verified 05/13/25 21:52) none Resuscitation Status Full Code Height 5 ft 5 in Weight 110 kg Pharmacy Admission Review Renal Dosing Renal Dosing: BUN 17 mg/dL (7-18) 06/10/25 05:25 Creatinine 0.5 mg/dL (0.55-1.02) L 06/10/25 05:25 Medications needing adjustments: Reviewed (CrCl 72 mL/min, BUN decreased from 20) List of meds needing interventions: Current medications are okay Anticoagulation Anticoagulation: Hgb 7.1 g/dL (11.2-15.7) L 8.9 g/dL (11.2-15.7) L 06/10/25 05:25 06/09/25 20:48 Hct 28.4 % (36.0-46.0) L 06/10/25 05:25 Plt Count 270 10^3/uL (130-400) 06/10/25 05:25 INR 1.1 (0.9-1.1) 06/09/25 20:48 Creatinine 0.5 mg/dL (0.55-1.02) L 06/10/25 05:25 DVT Prophylaxis: Intervened (changed from DAILY to BID due to BMI of 40) Medications: Enoxaparin (40mg BID) Opiate Usage Evaluate Pain Scale/Pains Meds: Reviewed (has order for fentanyl infusion - currently paused) Scheduled Bowel Reg ordered if on Opiates?: No Relevant Labs Relevant Labs: Sodium 142 mmol/L (136-145) 06/10/25 05:25 Potassium 3.5 mmol/L (3.5-5.1) 06/10/25 05:25 Chloride 105 mmol/L (98-107) 06/10/25 05:25 Magnesium 2.2 mg/dL (1.8-2.4) 06/09/25 20:48 Electrolytes, C-Reactive P, ESR: Reviewed Cardiac Review Cardiac Review: Troponin I 13 ng/L (<or=51) 06/09/25 23:37 NT-Pro-B Natriuret Pep 2013 pg/mL (<300) H 06/10/25 05:25 BP, HR, EF%: Reviewed (BP WNL, HR 132) List meds needing interventions: Has order for norepinephrine infusion and propofol infusion - both currently paused. QTc Review QTc: Reviewed (464 from 06/09/25) IV to PO Switch IV Medications: Reviewed (intubated) Home Meds Home Med List reviewed: Reviewed Relevent Home Meds Not ordered & why?: aripiprazole, Prolia, diclofenac, doxepin, duloxetine, fenofibrate, furosemide, gabapentin, lidocaine, methadone, metoprolol, oxycodone and simvastatin None ordered - patient currently intubated Current Meds Current Medication Order Review: Intervened Comments: Added IV access order Pharmacy Antibiotic Review Relevant Labs: Relevant Labs 06/10/25 05:25 Procalcitonin < 0.10 WBC 5.97 10^3/uL (4.4-10.8) 06/10/25 05:25 Procalcitonin < 0.10 ng/mL 06/10/25 05:25 Temperature 36.6 C Pharmacy Antibiotic Activity: C/S review and Reviewed, no change Comments: Patient is on levofloxacin, vancomycin and Zosyn, day 1, for cellulitis (pneumonia?). Current vancomycin dose is 1250mg q8h with predicted AUC of 507. Ordered level for today at 1800. Will adjust dose as needed based on results. Blood and sputum cultures pending.
[2025-06-10 14:39] LABS: BE 6 mmol/L (-2-3); HCO3 31 mmol/L (22-26)
[2025-06-10 14:42] LABS: FIO2 24 %
--- NOTE | 2025-06-10 15:29 | CHAPLAIN ---
I spoke with Maryjane shortly after she was extubated. She was relieved to be able to talk freely. She'd been communicating by writing things down while she was intubated. Maryjane live sin [place] with her mother and asked that someone call her mom. Maryjane told me she was hungry and asked me to let her nurse know that she wanted something to eat. I will continue to visit. .
--- NOTE | 2025-06-10 15:57 | PGE_ITS ---
Date of Service Date of service: 06/10/25 Time of Service: 15:57 Assessment and Plan Assessment and plan (1) Respiratory failure: Status: Acute Assessment and plan: - Acute hypoxemic requiring intubation secondary to respiratory failure due to presumed unintentional opioid overdose - Sedating meds were discontinued on the morning of 06/10/2025, patient was ultimately successfully extubated to 2 L nasal cannula as of afternoon 06/10/2025 - Wean O2 as tolerated (2) Aspiration into airway: Status: Acute Assessment and plan: - Question of respiratory failure caused by potential aspiration - Initially recommended for patient to be started on vancomycin, Zosyn and Levaquin by pulmonology - Given that shock is resolved and patient has been extubated, will transition to Unasyn and then likely Augmentin at discharge - Follow-up blood cultures (3) Low BP: Status: Acute Assessment and plan: -Was likely secondary to sedating meds - Levophed has since been discontinued (4) Chronic atrial fibrillation: Status: Chronic Assessment and plan: - The patient is awake and tolerating p.o. Will give 1 dose of p.o. metoprolol and restart daily tomorrow - During recent visit cardiology recommended against anticoagulation given history multiple falls (5) Opioid use disorder, severe, on maintenance therapy, dependence: Status: Acute Assessment and plan: - Will hold off on restarting sedating meds till tomorrow 06/11/2025 Subjective Subjective Interval history since last seen: Patient seen currently after extubation. States that she feels well and wants to eat. Has no complaints or concerns at this time. Exam Narrative Exam Narrative: Chronically ill-appearing female older than stated age lying in bed in no acute distress, ANO x 4, heart mildly tachycardic, lungs clear to auscultation bilaterally, abdomen soft, nontender, nondistended Objective Last Vital Signs Temp 97.9 F 06/10/25 06:09 Pulse 75 06/10/25 14:31 Resp 17 06/10/25 14:56 BP 138/116 H 06/10/25 14:56 Pulse Ox 88 L 06/10/25 14:56 Laboratory Results - last 24 hr 06/09/25 06/09/25 06/09/25 20:48 21:20 22: WBC 6.79 RBC 4.78 Hgb 8.9 L Hct 37.1 MCV 78 L MCH 18.6 L MCHC 24.0 L RDW 20.6 H Plt Count 339 MPV 9.6 Immature Gran % 0.3 Neutrophils % 59.1 Lymphocytes % 23.7 Monocytes % 6.3 Eosinophils % 9.7 Basophils % 0.9 Nucleated RBC % 0.0 Absolute Neutrophils 4.01 Absolute Lymphocytes 1.61 Absolute Monocytes 0.43 Absolute Eosinophils 0.66 Absolute Basophils 0.06 RBC Morphology See Below Hypochromasia 1+ Poikilocytosis 1+ Anisocytosis 2+ PT 10.7 INR 1.1 ABG Sample Site ABG pH ABG pCO2 ABG pO2 ABG HCO3 ABG Total CO2 ABG O2 Saturation ABG Base Excess VBG pH 7.27 L 7.41 VBG pCO2 68 H* 47 VBG pO2 41 51 VBG HCO3 31 H 30 H VBG Total CO2 30 H 28 VBG O2 Saturation 68 87 VBG Base Excess 5 H 5 H FiO2 Sodium 141 Potassium 3.7 Chloride 101 Carbon Dioxide 33.9 H Anion Gap 6.1 BUN 20 H Creatinine 0.6 Est GFR (CKD-EPI 2020) 101.42 Glucose 100 Calcium 9.0 Magnesium 2.2 Total Bilirubin 0.4 AST 9 L ALT 15 Alkaline Phosphatase 110 Troponin I 13 13 NT-Pro-B Natriuret Pep Total Protein 7.4 Albumin 3.4 Procalcitonin Urine Color Yellow Urine Clarity Clear Urine pH 6.0 Ur Specific [place] 1.025 Urine Protein 30 H Urine Ketones Negative Urine Blood Negative Urine Nitrite Negative Urine Bilirubin Negative Urine Urobilinogen 1.0 H Ur Leukocyte Esterase Negative Urine RBC Negative Urine WBC 3-5 Ur Epithelial Cells Moderate Urine Crystals Negative Urine Bacteria Few Urine Casts 5-10 Hyaline Urine Mucus Moderate Ur Culture Indicated? No Urine Glucose Negative Salicylates < 2.8 Urine Opiates Screen Positive A Urine Methadone Screen Positive A Acetaminophen < 2 Ur Barbiturates Screen Negative Ur Tricyclics Screen Positive A Ur Amphetamines Screen Negative U Benzodiazepines Scrn Negative Urine Cocaine Screen Negative Ur THC Screen Negative Ethyl Alcohol < 3.0 06/09/25 06/10/25 06/10/25 23:37 05:25 10:10 WBC 5.97 RBC 3.69 L Hgb 7.1 L Hct 28.4 L MCV 77 L MCH 19.2 L MCHC 25.0 L RDW 20.0 H Plt Count 270 MPV 9.4 Immature Gran % 0.3 Neutrophils % 63.4 Lymphocytes % 22.4 Monocytes % 5.4 Eosinophils % 8.2 Basophils % 0.3 Nucleated RBC % 0.0 Absolute Neutrophils 3.78 Absolute Lymphocytes 1.34 Absolute Monocytes 0.32 Absolute Eosinophils 0.49 Absolute Basophils 0.02 RBC Morphology See Below Hypochromasia 2+ Poikilocytosis Anisocytosis PT INR ABG Sample Site Left Radial ABG pH 7.32 L ABG pCO2 61 H* ABG pO2 58 L ABG HCO3 32 H ABG Total CO2 31 H ABG O2 Saturation 88 L ABG Base Excess 6 H VBG pH 7.41 VBG pCO2 52 H VBG pO2 41 VBG HCO3 33 H VBG Total CO2 32 H VBG O2 Saturation 76 VBG Base Excess 8 H FiO2 32 Sodium 142 Potassium 3.5 Chloride 105 Carbon Dioxide 33.9 H Anion Gap 3.1 BUN 17 Creatinine 0.5 L Est GFR (CKD-EPI 2020) 105.98 Glucose 93 Calcium 8.4 L Magnesium Total Bilirubin 0.2 AST 9 L ALT 7 L Alkaline Phosphatase 82 Troponin I 13 NT-Pro-B Natriuret Pep 2013 H Total Protein 5.2 L Albumin 2.4 L Procalcitonin < 0.10 Urine Color Urine Clarity Urine pH Ur Specific [place] Urine Protein Urine Ketones Urine Blood Urine Nitrite Urine Bilirubin Urine Urobilinogen Ur Leukocyte Esterase Urine RBC Urine WBC Ur Epithelial Cells Urine Crystals Urine Bacteria Urine Casts Urine Mucus Ur Culture Indicated? Urine Glucose Salicylates Urine Opiates Screen Urine Methadone Screen Acetaminophen Ur Barbiturates Screen Ur Tricyclics Screen Ur Amphetamines Screen U Benzodiazepines Scrn Urine Cocaine Screen Ur THC Screen Ethyl Alcohol 06/10/25 14:24 WBC RBC Hgb Hct MCV MCH MCHC RDW Plt Count MPV Immature Gran % Neutrophils % Lymphocytes % Monocytes % Eosinophils % Basophils % Nucleated RBC % Absolute Neutrophils Absolute Lymphocytes Absolute Monocytes Absolute Eosinophils Absolute Basophils RBC Morphology Hypochromasia Poikilocytosis Anisocytosis PT INR ABG Sample Site Left Radial ABG pH 7.36 ABG pCO2 55 H ABG pO2 50 L ABG HCO3 31 H ABG Total CO2 30 H ABG O2 Saturation 83 L ABG Base Excess 6 H VBG pH VBG pCO2 VBG pO2 VBG HCO3 VBG Total CO2 VBG O2 Saturation VBG Base Excess FiO2 24 Sodium Potassium Chloride Carbon Dioxide Anion Gap BUN Creatinine Est GFR (CKD-EPI 2020) Glucose Calcium Magnesium Total Bilirubin AST ALT Alkaline Phosphatase Troponin I NT-Pro-B Natriuret Pep Total Protein Albumin Procalcitonin Urine Color Urine Clarity Urine pH Ur Specific [place] Urine Protein Urine Ketones Urine Blood Urine Nitrite Urine Bilirubin Urine Urobilinogen Ur Leukocyte Esterase Urine RBC Urine WBC Ur Epithelial Cells Urine Crystals Urine Bacteria Urine Casts Urine Mucus Ur Culture Indicated? Urine Glucose Salicylates Urine Opiates Screen Urine Methadone Screen Acetaminophen Ur Barbiturates Screen Ur Tricyclics Screen Ur Amphetamines Screen U Benzodiazepines Scrn Urine Cocaine Screen Ur THC Screen Ethyl Alcohol Time Spent with Patient Time Spent with Patient: >50 minutes Time was spent: preparing to see the patient(eg.review tests), obtaining and/or reviewing separately otained hiistory, ordering medications,tests, procedures, referring, communicating with other health home health care coordinator, indepentently interpreting results, counseling the patient and care coordination
[2025-06-10] MEDS: Metoprolol CR 25 MG TABCR 12.5 MG PO (16:16)
[2025-06-10] MEDS: AMPICILLIN/SULBACTAM 3 GM in Normal Saline 100 ML IVPB (18:28)
[2025-06-10] MEDS: Methadone 10 MG TAB PO (18:29)
[2025-06-10 19:05] LABS: Vancomycin, Random 16.0 ug/mL
[2025-06-10] MEDS: Doxepin 50 MG CAP 200 MG PO (21:09)
[2025-06-10] MEDS: Metoprolol 12.5 MG TAB PO (21:10)
[2025-06-10] MEDS: Albuterol 2.5 MG/3 ML INH SOLN VIAL UPD (21:44)
[2025-06-10] MEDS: Acetaminophen 325 MG TAB 650 MG PO (23:34)
[2025-06-11] VITALS (35 sets, daily range): BP systolic 71–125; BP diastolic 37–95; PULSE 42–146; RESP 11–24; TEMP 36.9; O2SAT 89–97
[2025-06-11] MEDS: AMPICILLIN/SULBACTAM 3 GM in Normal Saline 100 ML IVPB ×3 (03:03→17:40)
[2025-06-11] MEDS: Methadone 10 MG TAB PO ×2 (06:04→17:39)
[2025-06-11] MEDS: Acetaminophen 325 MG TAB 650 MG PO ×3 (06:35→20:13)
[2025-06-11 06:36] LABS: HCT 33.2 % (36.0-46.0); HGB 8.1 g/dL (11.2-15.7); MCH 18.9 pg (27.0-33.0); MPV 9.7 fL (8.0-11.0); Platelet Count 293 10^3/uL (130-400); RBC 4.29 10^6/uL (3.93-5.22); RDW 20.5 % (11.7-14.6); RDW-SD 57.0 fL; WBC 7.43 10^3/uL (4.4-10.8)
[2025-06-11 06:51] LABS: Anion Gap 4.6 mmol/L (3-11); BUN 9 mg/dL (7-18); CO2 32.4 mmol/L (21.0-32.0); Calcium 8.9 mg/dL (8.5-10.1); Chloride 107 mmol/L (98-107); Glucose 80 mg/dL (74-106); Potassium 3.7 mmol/L (3.5-5.1); Sodium 144 mmol/L (136-145)
[2025-06-11 07:23] LABS: MCHC 24.4 % (32.0-36.0); MCV 77 fL (80-95)
[2025-06-11] MEDS: Metoprolol CR 25 MG TABCR 12.5 MG PO (07:39)
[2025-06-11] MEDS: Enoxaparin 40 MG/0.4 ML SYR SC ×2 (07:39→20:13)
[2025-06-11] MEDS: ARIPiprazole 5 MG TAB 40 MG PO (07:39)
[2025-06-11] MEDS: Nystatin POWDER 15 GM JAR TP ×3 (07:40→20:15)
[2025-06-11] MEDS: DULoxetine 30 MG CAP 60 MG PO (07:40)
--- NOTE | 2025-06-11 10:10 | W.NUTRFU ---
Date of service: 06/11/25 Time of Service: 10:10 Nutrition Note NOTE: Maryjane known to me from previous admissions. In ICU currently being treated for Resp Failure (potentially caused by aspiration), opioid overdose (with low bp). Was endotracheally intubated and current extubated. Hx of tobacco use, class III obesity. LAbs - Hgb/Hct today 8.1/33.2. BUN/Cr 9/.5. Total protein and albumin labs yesterday low at 5.2/2.4 , with elevated CRP noted last month (7.5). Intake fair to good this admission. Weight trends hard to interpret with edema usually present and devices weight/subtracted with patient as estimates. ~16kg weight loss noted x 1 month. 06/14 Intake still fair-good. ONS continued to be offered at meals. Discharge anticipated today - reviewed high protein diet as total protein and albumin continue to be low. PT has my contact if desiring further outpatient guidance. Time Spent in Nutritional Counseling and Treatment: 5 min
--- NOTE | 2025-06-11 16:27 | IN_ITS ---
PT Notes Visit Reasons: Respiratory Failure Inpatient Physical Therapy Evaluation Date: 06/11/25 Referring Doctor: Dr. Putnam PT Orders: PT CONSULT: safety consult for d/c Precautions: Fall precautions Patient Profile/Admitting Diagnosis: Respiratory Failure Subjective: Pt presented to the ED following opiod overdose, requiring intubation. She was extubated yesterday and is currently presents in the ICU where she is conversive lying semi-supine in bed. She has had multiple recent hospitalizations for similar symptoms. Short term rehab has been recommended due to mobility limitations but she has refused and has returned home with home health. Her last hospitalization was a few weeks ago. She states that she did suffer a fall at one point onto her right knee which caused an abrasion that is observable today. She lives in [place] with her mother. She has a step to enter but then lives on the first floor. She only needs to transfer from her bed in the living room to her wheelchair which she states is usually no problem. She now states that she is willing to attend rehab to try to get stronger. PMH includes A-fib, opiod abuse, low BP. Objective: General Observation: Resting comfortably in bed, welcomes this PT in, agreeable to participating today Mental Status: A+Ox4 - remembers my name and position Pain: chronic pain throughout body, currently states it is moderate Vital Signs: spO2 94% on 2 L/min via NC, BP low at 101/64 but nursing aware, HR fluctuating between 90-150 bpm throughout session Wounds: abrasion on right knee, pressure injury observed on right heel ROM: Able to actively flex shoulders overhead and utilize bilat UEs for assistance for bed mobility Strength: Right Lower Extremity: R hip flex 3+/5, R knee ext 3-/5, R ankle DF 4/5 Left Lower Extremity: L hip flex 4/5, L knee ext 4/5, L ankle DF 4/5 Sensation: Notes full sensation bilaterally Bed Mobility/Transfers: supine to sitting on EOB w/min assist sitting to supine w/max assist of 2 - required boosting up in bed w/max assist of 2 sitting to standing w/min assist standing to sitting w/min assist Gait: unwilling to perform even side stepping today Balance: Static Sitting: Good Dynamic Sitting: Fair Static Standing: Poor - bent over and unable to fully stand tall, significant scoliotic posture observed Dynamic Standing: Poor - unable to perform static marching or take hands of walker Special Tests: Mobility Limitations Standardized Measure [facility] AM-PAC 6 clicks Basic Mobility Inpatient Short Form: Raw Score: 10 CMS Score: Informed Consent/Education: Patient instructed in purpose of PT consult and plan of care. Assessment: Patient is currently very limited with her overall function as she is unable to ambulate or transfer at this time. She was able to stand today w/minimal assistance but is unable to perform any marching in place or transfer because of RLE weaknesses and postural limitations. She also has a very diff icult time with bed mobility as she is unable to perform bridging activities. She seems to have a greater understanding of her limitations compared to previous admissions. She would greatly benefit from STR to allow her to become more functional and safe which she agrees to now. She will continue to benefit from PT services during her hospital stay to optimize her level of functioning. Patient is assessed as a [x] Moderate 10634 complexity based on the following: History: Moderate Examination: Moderate Presentation: Moderate Decision Making: Moderate Goals: Goals X1 week 1. Supine-Sit w/SBA 2. Sit-Supine w/min assist 3. Sit-Stand w/CGA 4. Stand-Sit w/CGA 5. Bed-Chair w/min assist 6. Chair-Bed w/min assist Plan of Care/Treatment Plan: 1-2x/day, 7 days/week x 1 week. Plan of care has been reviewed with the DEALER RELATIONSHIP MANAGER providing the service under Physical Therapy direction. Initiate Physical Therapy intervention for strengthening, bed mobility, transfers, gait, stairs, balance training, use of assistive device. DISCHARGE RECOMMENDATIONS: [x] SNF for continued rehabilitation TREATMENT CODE/TIME: Moderate (80429) Eval x1 - 45 min
--- NOTE | 2025-06-11 16:33 | PGE_ITS ---
Date of Service Date of service: 06/11/25 Time of Service: 13:00 Assessment and Plan Assessment and plan (1) Respiratory failure: Status: Acute Assessment and plan: - Acute hypoxemic requiring intubation secondary to respiratory failure due to presumed unintentional opioid overdose - Sedating meds were discontinued on the morning of 06/10/2025, patient was ultimately successfully extubated to 2 L nasal cannula as of afternoon 06/10/2025 - Wean O2 as tolerated Oct 24: extubated yesterday. On 2L. Discussed ramifications of this degree of intervention and concern for additional episodes with continued narcotic use. (2) Aspiration into airway: Status: Acute Assessment and plan: - Question of respiratory failure caused by potential aspiration - Initially recommended for patient to be started on vancomycin, Zosyn and Levaquin by pulmonology - Given that shock is resolved and patient has been extubated, will transition to Unasyn and then likely Augmentin at discharge - Follow-up blood cultures (3) Low BP: Status: Acute Assessment and plan: -Was likely secondary to sedating meds - Levophed has since been discontinued (4) Chronic atrial fibrillation: Status: Chronic Assessment and plan: - The patient is awake and tolerating p.o. Will give 1 dose of p.o. metoprolol and restart daily tomorrow - During recent visit cardiology recommended against anticoagulation given history multiple falls (5) Opioid use disorder, severe, on maintenance therapy, dependence: Status: Acute Assessment and plan: - Will hold off on restarting sedating meds till tomorrow 06/11/2025 Subjective Subjective Interval history since last seen: Mrs. Cline is comfortable in bed with her mother and her son at bedside. Patient wants to go to rehab for physical therapy. Exam Narrative Exam Narrative: General: This is a pleasant, obese woman in no distress HEENT: Normocephalic, atraumatic CV: RRR Resp: CTAB Abd: soft, NTND MSK: voluntary motion x4. Multiple lower extremity skin wounds, dressed. Neuro: awake, alert, no focal deficits Objective Last Vital Signs Temp 36.6 C 06/10/25 06:09 Pulse 52 L 06/11/25 16:02 Resp 24 06/11/25 12:01 BP 120/76 06/11/25 16:02 Pulse Ox 95 06/11/25 16:02 Laboratory Results - last 24 hr 06/10/25 06/11/25 18:40 05:40 WBC 7.43 RBC 4.29 Hgb 8.1 L Hct 33.2 L MCV 77 L MCH 18.9 L MCHC 24.4 L RDW 20.5 H Plt Count 293 MPV 9.7 Sodium 144 Potassium 3.7 Chloride 107 Carbon Dioxide 32.4 H Anion Gap 4.6 BUN 9 Creatinine 0.5 L Est GFR (CKD-EPI 2020) 105.98 Glucose 80 Calcium 8.9 Random Vancomycin 16.0 Time Spent with Patient Time Spent with Patient: 25-34 minutes Time was spent: preparing to see the patient(eg.review tests), obtaining and/or reviewing separately otained hiistory, ordering medications,tests, procedures, referring, communicating with other health director of managed care, indepentently int erpreting results, counseling the patient and care coordination
--- NOTE | 2025-06-11 17:33 | CMPROGNOTE_ITS ---
Date of service: 06/11/25 Time of Service: 17:33 Care Management Progress Note Progress Note Text Progress Note Text: Maryjane was lying in bed when CM met with her. She was visiting with her mother, her son, Sony, and MD was present in the room as well. discussed medication changes with Maryjane, in order to reduce hospitalizations while still controlling her pain. Maryjane worked with PT today, who recommended SNF for short term rehab. Maryjane is agreeable to going for a short time, and asked for referrals to be sent to the [facility], [facility], [facility] and [place]. She would prefer to stay locally, at either the [facility] or [facility]. Sony expressed concern for his mother, and stated that he is available by phone for support, and that he will make sure that Maryjane's mother (his grandmother) is taken care of while she is in rehab. Maryjane is agreeable to this plan, and will remain over the weekend for potential SNF placement early next week. She is currently being treated in the ICU, and is on 2LO2. CM will con tinue to follow. Discharge Potential Discharge Needs: PCP F/U Appt and Other (coordinated SNF placement) Anticipated Barriers to Discharge: Bed availability Patient/Family Education Needs: Review discharge instructions, discuss Ask Me Three Transportation: Private vehicle Plan: Anticipate Maryjane will transfer to SNF, if she is offered a bed. Referrals will be sent to multiple facilities. She will likely transport via private vehicle vs w/c van, depending on her mobility at the time of discharge. She will follow up with her PCP and discharge plan of care. CM will continue to follow. Social Determinants of Health Screening Social Determinants of health last assessed in clinic: 06/11/25 Will the Patient Participate in the Screening?: Yes Do you worry about having a steady place to live?: no Problems where you live: no known problems In the past 12 months, have you had to go without electric, gas, oil or water in your home?: no 1. Within the past 12 months, we worried whether our food would run out before we got money to buy more.: Never true 2. Within the past 12 months, the food we bought just didn't last and we didn't have money to get more.: Never true Has lack of transportation kept you from medical appointments or from doing things needed for daily living?: no Has anyone in your life made you feel unsafe or unsupported?: no How hard is it for you to pay for the very basics like food, housing, medical care, and heating? Would you say it is:: Not hard at all Do you want help finding or keeping work or a job?: I do not need or want help If for any reason you need help with day-to-day activities such as bathing, preparing meals, shopping, managing finances, etc., do you get the help you need?: I get all the help I need How often do you feel lonely or isolated from those around you?: Rarely Do you speak a language other than Malay at home?: No Does the patient want assistance with any of the above?: No Health Related Social Needs Health related social needs: feeling lonely/isolated (Z60.8)
[2025-06-11] MEDS: Normal Saline Flush 10 ML SYR IVP ×2 (18:28→20:14)
[2025-06-11] MEDS: Albuterol 2.5 MG/3 ML INH SOLN VIAL UPD (19:32)
[2025-06-11] MEDS: Doxepin 50 MG CAP 200 MG PO (20:12)
[2025-06-11] MEDS: Simvastatin 20 MG TAB PO (20:13)
[2025-06-12] VITALS (23 sets, daily range): BP systolic 96–153; BP diastolic 55–100; PULSE 40–129; RESP 10–23; TEMP 36.8–37.1; O2SAT 80–98
[2025-06-12] MEDS: AMPICILLIN/SULBACTAM 3 GM in Normal Saline 100 ML IVPB ×3 (01:29→20:32)
[2025-06-12] MEDS: Normal Saline Flush 10 ML SYR IVP ×6 (01:45→21:13)
[2025-06-12] MEDS: Albuterol 2.5 MG/3 ML INH SOLN VIAL UPD ×2 (02:27→21:54)
[2025-06-12] MEDS: diphenhydrAMINE 25 MG CAP PO (02:39)
[2025-06-12] MEDS: Acetaminophen 325 MG TAB 650 MG PO ×2 (02:49→12:15)
[2025-06-12] MEDS: Methadone 10 MG TAB PO ×2 (06:18→18:44)
[2025-06-12] MEDS: Furosemide 20 MG TAB PO (06:19)
[2025-06-12 06:38] LABS: Abs Immature Grans 0.03 10^3/uL (0.0-0.06); HCT 30.4 % (36.0-46.0); HGB 7.6 g/dL (11.2-15.7); Immature Grans % 0.5 %; MCH 19.5 pg (27.0-33.0); MCHC 25.0 % (32.0-36.0); MCV 78 fL (80-95); MPV 9.7 fL (8.0-11.0); Platelet Count 254 10^3/uL (130-400); RBC 3.90 10^6/uL (3.93-5.22); RDW 20.8 % (11.7-14.6); RDW-SD 57.3 fL; WBC 6.31 10^3/uL (4.4-10.8)
[2025-06-12 07:00] LABS: ALT 9 U/L (14-59); AST 7 U/L (15-37); Albumin 2.4 g/dL (3.4-5.0); Alkaline Phosphatase 78 U/L (46-116); Anion Gap 3.0 mmol/L (3-11); BUN 10 mg/dL (7-18); Bilirubin, Total 0.3 mg/dL (0.2-1.0); CO2 35.0 mmol/L (21.0-32.0); Calcium 8.7 mg/dL (8.5-10.1); Chloride 106 mmol/L (98-107); Glucose 82 mg/dL (74-106); Potassium 3.7 mmol/L (3.5-5.1); Sodium 144 mmol/L (136-145); Total Protein 5.6 g/dL (6.4-8.2)
[2025-06-12 07:07] LABS: Anisocytosis 2+; Hypochromasia 1+; Polychromasia Present
[2025-06-12] MEDS: DULoxetine 30 MG CAP 60 MG PO (08:19)
[2025-06-12] MEDS: Nystatin POWDER 15 GM JAR TP ×2 (08:20→20:31)
[2025-06-12] MEDS: Metoprolol CR 25 MG TABCR 12.5 MG PO (08:20)
[2025-06-12] MEDS: Enoxaparin 40 MG/0.4 ML SYR SC ×2 (08:22→20:32)
[2025-06-12] MEDS: ARIPiprazole 5 MG TAB 10 MG PO (08:49)
--- NOTE | 2025-06-12 09:19 | PTTR_ITS ---
PT Notes Visit Reasons: Respiratory Failure Inpatient Physical Therapy Treatment Note [facility] Date: 06/12/2025 PRECAUTIONS:Fall Precautions, Pt becomes fearful when hands are on her SUBJECTIVE: Pt reports it is easier for her to pivot to the left OBJECTIVE: presented supine in bed on her phone. PAIN:pain in right leg with supine to sit VITALS: monitored by nursing Therapeutic Activities ([id number][]): Direct one-on-one instruction in dynamic activities to improve functional performance. BED MOBILITY/TRANSFERS Rolling L/R:mod A Supine-sit: min A Sit-supine: mod A for LEs Sit-stand: CGA x 5 trials from bed and chair Stand-sit: CGA x5 trials Bed-Chair:CGA pivot to left Chair-bed: CGA pivot to left with use of bed rail Second session Sit-supine: mod A for LEs Sit-stand: CGA x 2 trials from bed and commode Stand-sit: CGA [id number] Bed-commode:CGA pivot to right Commode-bed: CGA pivot to left with use of bed rail Provided skilled cues and instruction on performance and technique throughout. ASSESSMENT: Chapis has progressed to CGA for transfers. She requires assist for bed mobility . She sleeps in recliner at home and performs pivot transfers to w/c and commode. Pt has difficulty WB through RLE therefore transfers to the left make it easier. At home she intermittently uses a 4WW for transfers. Second session patient demonstrates ability to perform step turn transfer to the right to get on commode as she does at home patient utilizes bilateral upper extremity support on commode transitions toward the right readjusting her hands as she goes and is able to control descent onto commode. Patient demonstrated independent toilet hygiene however required assistance for management of undergarment after. PLAN: 1-2x/day, 7 days/week x 1 week. Plan of care has been reviewed with the RN PALLIATIVE CARE providing the service under Physical Therapy direction. Initiate Physical Therapy intervention for strengthening, bed mobility, transfers, gait, stairs, balance training, use of assistive device. TREATMENT CODE/TIME: 89173/0840–0951 2nd session: 15206/ [id number] DISCHARGE RECOMMENDATION: SNF to progress with strengthening versus HHPT
--- NOTE | 2025-06-12 10:12 | W.PC.ACHO ---
Registration Status: ADM IN Primary Language: Preferred Language: German ED Information & Data Chief Complaint AMS/LOC 06/09/25 21:29 Triage Note PT's mother was watching TV 06/09/25 20:11 with the PT when she noticed that the PT was not alert. Called 911 sighting concern about her altered mental status. Hx of polypharmacy Medical / Surgical History (Last Reviewed 05/18/25 @ 18:45 by Rom Carrillo) Displaced trimalleolar fracture of right ankle Gastric ulcer (08/18/05) Depression (07/18/05) Gastroparesis (07/18/05) Morbid obesity Chronic right-sided lumbar radiculopathy Osteoporosis Type 2 diabetes mellitus Essential hypertension History of fractured rib COPD (chronic obstructive pulmonary disease) (Last Reviewed 05/18/25 @ 18:45 by Rom Carrillo) History of ankle surgery History of back surgery (10/17/17) ULCER/STOMACH SURGERY Replacement of total knee joint (04/17/17) Total replacement of hip KNEE SURGERY EGD - MAC Cholecystectomy (~06/2013) Most Recent Vital Signs Temperature 98.8 F 06/12/25 09:17 Temperature Source Temporal Artery Scan 06/12/25 09:17 Pulse 68 06/12/25 09:17 Pulse 126 H 06/12/25 07:39 Respiratory Rate 17 06/12/25 09:17 Respiratory Effort Mechanically Ventilated 06/10/25 01:30 Blood Pressure 143/80 H 06/12/25 09:17 Blood Pressure Mean 101 06/12/25 09:17 Blood Pressure Position Supine 06/10/25 01:30 Pulse Oximetry 87 L 06/12/25 09:17 Respiratory End-tidal CO2 57 06/10/25 14:56 Oxygen Delivery Method Room Air 06/12/25 09:17 Oxygen Flow Rate 0 06/12/25 09:17 Fraction of Inspired Oxygen (FIO2) 24 06/10/25 14:56 Pain Level 3 06/12/25 09:17 Comment prior to my shift 06/10/25 06:46 Allergies No Known Drug Allergies Allergy (Unknown, Verified 05/13/25 21:52) none Active Medications Generic Name Dose Route Start Last Admin Trade Name Freq PRN Reason Stop Dose Admin Acetaminophen 650 mg 06/10/25 19:23 06/12/25 02:49 Acetaminophen 325 Mg Tab PO 650 mg Q6H PRN PRN Administration Albuterol Sulfate 2.5 mg 06/10/25 00:10 06/12/25 02:27 Albuterol 2.5 Mg/3 Ml Inh Soln Vial UPD 2.5 mg Q2H PRN PRN Administration Aripiprazole 10 mg 06/12/25 08:30 06/12/25 08:49 Aripiprazole 5 Mg Tab PO 10 mg DAILY TAINA Administration Doxepin HCl 200 mg 06/10/25 20:00 06/11/25 20:12 Doxepin 50 Mg Cap PO 200 mg HS TAINA Administration Duloxetine HCl 60 mg 06/11/25 08:30 06/12/25 08:19 Duloxetine 30 Mg Cap PO 60 mg DAILY TAINA Administration Enoxaparin Sodium 40 mg 06/10/25 08:30 06/12/25 08:22 Enoxaparin 40 Mg/0.4 Ml Syr SC 40 mg BID TAINA Administration Furosemide 20 mg 06/12/25 04:07 06/12/25 06:19 Furosemide 20 Mg Tab PO 20 mg BID PRN PRN Administration Swelling Ampicillin Sodium/Sulbactam 100 mls @ 200 mls/hr 06/10/25 18:00 06/12/25 03:04 Sodium 3 gm/ Sodium Chloride IVPB Infused Q8H TAINA Infusion Methadone HCl 10 mg 06/10/25 18:00 06/12/25 06:18 Methadone 10 Mg Tab PO 10 mg Q12H TAINA Administration Nystatin 0 gm 06/10/25 08:30 06/12/25 08:20 Nystatin Powder 15 Gm Jar TP 1 applic TID TAINA Administration Simvastatin 20 mg 06/11/25 20:00 06/11/25 20:13 Simvastatin 20 Mg Tab PO 20 mg QPM TAINA Administration Sodium Chloride 0 ml 06/10/25 02:57 06/12/25 05:11 Normal Saline Flush 10 Ml Syr IVP 40 ml PRN PRN Administration IV IV Catheter Type [Left tripple lumen IJ Internal Jugular] IV Catheter Type [Left Saline Lock Antecubital] IV Catheter Type [Left Wrist] Saline Lock IV Catheter Type [Right Peripheral IV Antecubital] IV Catheter Gauge [Left 18 Antecubital] IV Catheter Gauge [Left Wrist] 20 IV Catheter Gauge [Right 14 Antecubital] Diagnostics 06/12/25 Range/Units 05:30 WBC 6.31 (4.4-10.8) 10^3/uL RBC 3.90 L (3.93-5.22) 10^6/uL Hgb 7.6 L (11.2-15.7) g/dL Hct 30.4 L (36.0-46.0) % MCV 78 L (80-95) fL MCH 19.5 L (27.0-33.0) pg MCHC 25.0 L (32.0-36.0) % RDW 20.8 H (11.7-14.6) % Plt Count 254 (130-400) 10^3/uL MPV 9.7 (8.0-11.0) fL Immature Gran % 0.5 % Neutrophils % 62.2 % Lymphocytes % 16.8 % Monocytes % 5.9 % Eosinophils % 14.1 % Basophils % 0.5 % Nucleated RBC % 0.0 (0.0-0.3) % Absolute Neutrophils 3.93 (1.2-6.7) 10^3/uL Absolute Lymphocytes 1.06 L (1.2-3.4) 10^3/uL Absolute Monocytes 0.37 (0.1-0.8) 10^3/uL Absolute Eosinophils 0.89 H (0.0-0.7) 10^3/uL Absolute Basophils 0.03 (0.0-0.2) 10^3/uL RBC Morphology See Below Polychromasia Present Hypochromasia 1+ Anisocytosis 2+ Sodium 144 (136-145) mmol/L Potassium 3.7 (3.5-5.1) mmol/L Chloride 106 (98-107) mmol/L Carbon Dioxide 35.0 H (21.0-32.0) mmol/L Anion Gap 3.0 (3-11) mmol/L BUN 10 (7-18) mg/dL Creatinine 0.5 L (0.55-1.02) mg/dL Est GFR (CKD-EPI 2020) 105.98 (mL/min/1.73m2) Glucose 82 (74-106) mg/dL Calcium 8.7 (8.5-10.1) mg/dL Total Bilirubin 0.3 (0.2-1.0) mg/dL AST 7 L (15-37) U/L ALT 9 L (14-59) U/L Alkaline Phosphatase 78 (46-116) U/L Total Protein 5.6 L (6.4-8.2) g/dL Albumin 2.4 L (3.4-5.0) g/dL 06/10/25 05:20 Blood Culture - Preliminary Blood NO GROWTH 48 HOURS 06/10/25 05:08 Blood Culture - Preliminary Blood NO GROWTH 48 HOURS 06/10/25 08:25 Sputum Culture - Preliminary Sputum Normal Carol Gram Stain - Final Intake and Output - 24 Hour Total 06/09/25 20:04 thru 06/12/25 08:25 Intake Total 5521.700 Output Total 3595 Balance 1926.700 Weight 233 lb 7.512 oz Intake: IV 4339.700 Oral 1182 Output: Gastric Drainage 150 Oral 150 Urine 3445 Other: Urine Color Light [place] Urine Appearance Clear Stool Size Large Stool Characteristics Soft Formed Brown Urinary Catheter Urinary Catheter Date of 06/09/25 Insertion [Urethral (Villatoro)] Time of insertion [Urethral ( 21:20 Villatoro)] Falls Risk Assessment History of Falls Previous History 06/10/25 01:30 Contributing Factors Medications 06/10/25 01:30 Ambulatory Aids Uses ambulatory device + 06/10/25 01:30 Tubes/Lines With any additional score 06/10/25 01:30 Gait Evaluation W/any additional score 06/10/25 01:30 Cognition No cognitive impairment 06/10/25 01:30 Fall Total Score 88 06/10/25 01:30 Level of Risk Maximum Risk 06/10/25 01:30 Restraint Information Behavior Requiring Restraints/ Harm to Patient Seclusion Note patient extubated at 1515 Criteria for Restraint Removal No longer threat to self Date Restraints Removed 06/10/25 Time Restraints Removed 15:15 Was Restraint Order Yes Discontinued If no,why was the order not will stay restrained until extubated. discontinued? Problems (Last Reviewed 05/18/25 @ 18:45 by Rom Carrillo) Aspiration into airway (Acute) Shock (Acute) Respiratory failure (Acute) Cellulitis (Acute) Altered mental status (Acute) Anemia (Chronic) Abdominal hernia without obstruction and without gangrene (Chronic) Chronic atrial fibrillation (Chronic) Opioid use disorder, severe, on maintenance therapy, dependence (Acute) Low BP (Acute) Notes 06/10/25 00:18 Nursing Notes by Richar Rae line placement verified by Xray. ED MD henao with line use at this timeNursing Note: Initialized on 06/10/25 00:18 - END OF NOTE 06/09/25 23:46 Nursing Notes by Richar Rae 23:43 L AC IV infiltrated. ED MD aware. ED MD at bedside for IJ placement Nursing Note: Initialized on 06/09/25 23:46 - END OF NOTE 06/09/25 23:20 Nursing Notes by Richar Rae 2300 after infiltration ED MD notified. R arm elevated and monitored per ED MD. Nursing Note: Initialized on 06/09/25 23:20 - END OF NOTE 06/09/25 23:19 Nursing Notes by Richar Rae after several attempts to get peripheral IV by RN. ED MD at bedside for ultrasound IV placement Nursing Note: Initialized on 06/09/25 23:19 - END OF NOTE 06/09/25 22:32 Nursing Notes by Richar Rae assumed care of PT from P Dayna PMNursing Note: Initialized on 06/09/25 22:32 - END OF NOTE v v v v v v v v v Sending and/or Receiving Nurses: Please use comment section below to note any information pertinent to the patient hand-off not included above. Information / Comments: patient transferred from ICU to [facility] Report received from: Christopher Knight RN
[2025-06-12] MEDS: Gabapentin 800 MG TAB PO ×2 (15:44→20:30)
--- NOTE | 2025-06-12 16:00 | PGE_ITS ---
Date of Service Date of service: 06/12/25 Time of Service: 13:00 Assessment and Plan Assessment and plan (1) Respiratory failure: Status: Resolved Assessment and plan: - Acute hypoxemic requiring intubation secondary to respiratory failure due to presumed unintentional opioid overdose - Sedating meds were discontinued on the morning of 06/10/2025, patient was ultimately successfully extubated to 2 L nasal cannula as of afternoon 06/10/2025 - Wean O2 as tolerated Jun 11: extubated yesterday. On 2L. Discussed ramifications of this degree of intervention and concern for additional episodes with continued narcotic use. Jun 12: Resolved, on room air. (2) Aspiration into airway: Status: Resolved Assessment and plan: - Question of respiratory failure caused by potential aspiration - Initially recommended for patient to be started on vancomycin, Zosyn and Leva lorne by pulmonology - Given that shock is resolved and patient has been extubated, will transition to Unasyn and then likely Augmentin at discharge - Follow-up blood cultures Jun 12: cultures negative, will complete augmentin course (3) Low BP: Status: Resolved Assessment and plan: -Was likely secondary to sedating meds - Levophed has since been discontinued Jun 12: normotensive (4) Chronic atrial fibrillation: Status: Chronic Assessment and plan: - The patient is awake and tolerating p.o. Will give 1 dose of p.o. metoprolol and restart daily tomorrow - During recent visit cardiology recommended against anticoagulation given history multiple falls (5) Opioid use disorder, severe, on maintenance therapy, dependence: Status: Acute Assessment and plan: - Restarted methadone. Not restarting oxycodone Subjective Subjective Interval history since last seen: Ms. Cline is sitting up in bed visiting with a friend. She feels much better today. Ongoing discussion with son Sony about her next steps and her need for support. Exam Narrative Exam Narrative: General: This is a pleasant, obese woman in no distress HEENT: Normocephalic, atraumatic CV: RRR Resp: CTAB Abd: soft, NTND MSK: voluntary motion x4. Multiple lower extremity skin wounds, dressed. Neuro: awake, alert, no focal deficits Objective Last Vital Signs Temp 37.1 C 06/12/25 15:32 Pulse 46 L 06/12/25 15:32 Resp 17 06/12/25 15:32 BP 153/100 H 06/12/25 15:32 Pulse Ox 87 L 06/12/25 15:32 Laboratory Results - last 24 hr 06/12/25 05:30 WBC 6.31 RBC 3.90 L Hgb 7.6 L Hct 30.4 L MCV 78 L MCH 19.5 L MCHC 25.0 L RDW 20.8 H Plt Count 254 MPV 9.7 Immature Gran % 0.5 Neutrophils % 62.2 Lymphocytes % 16.8 Monocytes % 5.9 Eosinophils % 14.1 Basophils % 0.5 Nucleated RBC % 0.0 Absolute Neutrophils 3.93 Absolute Lymphocytes 1.06 L Absolute Monocytes 0.37 Absolute Eosinophils 0.89 H Absolute Basophils 0.03 RBC Morphology See Below Polychromasia Present Hypochromasia 1+ Anisocytosis 2+ Sodium 144 Potassium 3.7 Chloride 106 Carbon Dioxide 35.0 H Anion Gap 3.0 BUN 10 Creatinine 0.5 L Est GFR (CKD-EPI 2020) 105.98 Glucose 82 Calcium 8.7 Total Bilirubin 0.3 AST 7 L ALT 9 L Alkaline Phosphatase 78 Total Protein 5.6 L Albumin 2.4 L Time Spent with Patient Time Spent with Patient: 25-34 minutes Time was spent: preparing to see the patient(eg.review tests), obtaining and/or reviewing separately otained hiistory, ordering medications,tests, procedures, referring, communicating with other health healthcare sales representative, indepentently interpreting results, counseling the patient and care coordination
[2025-06-12] MEDS: Acetaminophen 500 MG TAB 1000 MG PO (20:30)
[2025-06-12] MEDS: Simvastatin 20 MG TAB PO (20:30)
[2025-06-12] MEDS: Doxepin 50 MG CAP 200 MG PO (20:31)
[2025-06-13 04:00] VITALS: BP 132/103; PULSE 91; RESP 18; TEMP 36.5; O2SAT 93
[2025-06-13 06:58] VITALS: BP 138/105; PULSE 81; RESP 17; TEMP 36.7; O2SAT 77
[2025-06-13] MEDS: Methadone 10 MG TAB PO ×2 (07:02→17:47)
[2025-06-13] MEDS: AMPICILLIN/SULBACTAM 3 GM in Normal Saline 100 ML IVPB (07:03)
[2025-06-13] MEDS: ARIPiprazole 15 MG TAB 30 MG PO (08:42)
[2025-06-13] MEDS: ARIPiprazole 5 MG TAB 10 MG PO (08:42)
[2025-06-13] MEDS: DULoxetine 30 MG CAP 60 MG PO (08:42)
[2025-06-13] MEDS: Gabapentin 800 MG TAB PO ×4 (08:43→20:47)
[2025-06-13] MEDS: Furosemide 20 MG TAB PO (08:43)
[2025-06-13] MEDS: Acetaminophen 500 MG TAB 1000 MG PO ×2 (08:43→21:33)
[2025-06-13] MEDS: Enoxaparin 40 MG/0.4 ML SYR SC ×2 (08:43→20:47)
[2025-06-13] MEDS: Metoprolol 12.5 MG TAB PO (08:43)
[2025-06-13] MEDS: Normal Saline Flush 10 ML SYR IVP (08:44)
[2025-06-13] MEDS: Nystatin POWDER 15 GM JAR TP ×2 (09:50→20:47)
--- NOTE | 2025-06-13 11:44 | PTTR_ITS ---
Date of service: 06/13/25 PT Notes Visit Reasons: Respiratory Failure Inpatient Physical Therapy Treatment Note [facility] Date: 06/13/2025 PRECAUTIONS:Fall Precautions, Pt becomes fearful when hands are on her SUBJECTIVE: Pt reports she feels better today. She states her son is involved with her discharge. OBJECTIVE: presented seated at EOB. PAIN:did not report pain VITALS: monitored by nursing Therapeutic Activities ([id number]): Direct one-on-one instruction in dynamic activities to improve functional performance. BED MOBILITY/TRANSFERS Rolling L/R:min A Supine-sit: min A Sit-supine: mod A for LEs Sit-stand: CGA x 3 trials from bed and commode Stand-sit: CGA x3 trials Bed-Commode:CGA pivot to right patient utilizes bilateral upper extremity support on commode transitions toward the right readjusting her hands as she goes and is able to control descent onto commode. Commode-bed: CGA pivot to left with use of bed rail Second session Sit-supine: mod A for LEs Sit-stand: CGA x 2 trials from bed and commode Stand-sit: CGA [id number] Bed-commode:CGA pivot to right Commode-bed: CGA pivot to left with use of bed rail Provided skilled cues and instruction on performance and technique throughout. ASSESSMENT: Pt eager to perform transfers. She is able to assess how her legs are feeling as she stands. She required a brief rest to adjust her feet then was able to achieve upright stand Patient demonstrated independent toilet hygiene however required assistance for management of undergarment after. PLAN: 1-2x/day, 7 days/week x 1 week. Plan of care has been reviewed with the DIRECTOR OF CATEGORY MANAGEMENT providing the service under Physical Therapy direction. Initiate Physical Therapy intervention for strengthening, b ed mobility, transfers, gait, stairs, balance training, use of assistive device. TREATMENT CODE/TIME: 06008/[id number] 2nd session: Patient declined second session as her family was visiting. DISCHARGE RECOMMENDATION: SNF to progress with strengthening versus HHPT
[2025-06-13 11:47] VITALS: BP 126/93; PULSE 50; RESP 16; TEMP 36.6; O2SAT 87
--- NOTE | 2025-06-13 13:51 | W.PM.PROGNOT ---
Date of Service Date of service: 06/13/25 Time of Service: 11:00 Assessment and Plan Assessment and plan (1) Respiratory failure: Status: Resolved Assessment and plan: - Acute hypoxemic requiring intubation secondary to respiratory failure due to presumed unintentional opioid overdose - Sedating meds were discontinued on the morning of 06/10/2025, patient was ultimately successfully extubated to 2 L nasal cannula as of afternoon 06/10/2025 - Wean O2 as tolerated Jun 11: extubated yesterday. On 2L. Discussed ramifications of this degree of intervention and concern for additional episodes with continued narcotic use. Jun 12: Resolved, on room air. (2) Aspiration into airway: Status: Resolved Assessment and plan: - Question of respiratory failure caused by potential aspiration - Initially recommended for patient to be started on vancomycin, Zosyn and Levaquin by pulmonology - Given that shock is resolved and patient has been extubated, will transition to Unasyn and then likely Augmentin at discharge - Follow-up blood cultures Jun 12: cultures negative, will complete augmentin course (3) Low BP: Status: Resolved Assessment and plan: -Was likely secondary to sedating meds - Levophed has since been discontinued Jun 12: normotensive (4) Chronic atrial fibrillation: Status: Chronic Assessment and plan: - The patient is awake and tolerating p.o. Will give 1 dose of p.o. metoprolol and restart daily tomorrow - During recent visit cardiology recommended against anticoagulation given history multiple falls (5) Opioid use disorder, severe, on maintenance therapy, dependence: Status: Acute Assessment and plan: - Restarted methadone. Not restarting oxycodone - Anticipate Saturday discharge home vs. placement in nursing facility for physical therapy Subjective Subjective Interval history since last seen: Mrs. Cline is comfortable in bed. No overnight events, no new complaints. Exam Narrative Exam Narrative: General: This is a pleasant, obese woman in no distress HEENT: Normocephalic, atraumatic CV: RRR Resp: CTAB Abd: soft, NTND MSK: voluntary motion x4. Multiple lower extremity skin wounds, dressed. Neuro: awake, alert, no focal deficits Objective Last Vital Signs Temp 36.6 C 06/13/25 11:47 Pulse 50 L 06/13/25 11:47 Resp 16 06/13/25 11:47 BP 126/93 H 06/13/25 11:47 Pulse Ox 87 L 06/13/25 11:47 Time Spent with Patient Time Spent with Patient: 25-34 minutes Time was spent: preparing to see the patient(eg.review tests), obtaining and/or reviewing separately otained hiistory, ordering medications,tests, procedures, referring, communicating with other health health care analyst, indepentently interpreting results, counseling the patient and care coordination
[2025-06-13 15:32] VITALS: BP 120/81; PULSE 45; RESP 17; TEMP 36.7; O2SAT 83
[2025-06-13 15:36] VITALS: PULSE 62; O2SAT 89
[2025-06-13 20:28] VITALS: RESP 18; TEMP 36.5; O2SAT 90
[2025-06-13] MEDS: Doxepin 50 MG CAP 200 MG PO (20:47)
[2025-06-13] MEDS: Simvastatin 20 MG TAB PO (20:47)
[2025-06-14] VITALS (9 sets, daily range): BP systolic 125–150; BP diastolic 70–98; PULSE 56–72; RESP 15–17; TEMP 36.3–36.7; O2SAT 85–93
[2025-06-14] MEDS: Methadone 10 MG TAB PO ×2 (06:16→19:02)
[2025-06-14] MEDS: Albuterol 2.5 MG/3 ML INH SOLN VIAL UPD (07:50)
[2025-06-14] MEDS: DULoxetine 30 MG CAP 60 MG PO (08:29)
[2025-06-14] MEDS: Furosemide 20 MG TAB PO (08:29)
[2025-06-14] MEDS: Acetaminophen 500 MG TAB 1000 MG PO ×3 (08:29→21:18)
[2025-06-14] MEDS: Gabapentin 800 MG TAB PO ×3 (08:29→21:18)
[2025-06-14] MEDS: ARIPiprazole 5 MG TAB 10 MG PO (08:29)
[2025-06-14] MEDS: Enoxaparin 40 MG/0.4 ML SYR SC ×2 (08:30→21:17)
[2025-06-14] MEDS: ARIPiprazole 15 MG TAB 30 MG PO (08:30)
[2025-06-14] MEDS: Metoprolol 12.5 MG TAB PO (08:34)
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
[2025-06-14] MEDS: Nystatin POWDER 15 GM JAR TP (09:39)
--- NOTE | 2025-06-14 10:20 | CMPROGNOTE_ITS ---
Date of service: 06/14/25 Time of Service: 10:20 Care Management Progress Note Progress Note Text Progress Note Text: Maryjane was sitting up on the edge of her bed when CM met with her. She stated that she is doing well working with PT, and is back at her baseline, which is independent with transfers. CM discussed this with PT, who recommended that she return home with new PT. PT stated that she would benefit from short term rehab, if her goal is to walk more independently, although it may take her longer to achieve this goal, which she is not interested in; she expressed many times that she is worried about short term rehab turning into a [facility] stay. CM discussed rehab as an option post discharge, for 30 days, using this acute three night stay. CM also discussed child support officer planning, as she may need more support at some point. Maryjane agreed to a referral being sent to [facility] for child support officer planning, which was sent. CM and Maryjane called her son, Sony, together in her room, and discussed her discharge plan. Sony was hoping for her to go to rehab, and stated that he will continue to talk with his mother about this option. CM followed up on the rehab referrals today, and the [facility] has made a tentative bed offer. CM will discuss this with Maryjane tomorrow; she will either go to SNF vs return home with new services, although she has stated that she prefers to return home, which will likely be the outcome. CM will continue to follow. Discharge Potential Discharge Needs: PCP F/U Appt Anticipated Barriers to Discharge: None Identified Patient/Family Education Needs: Review discharge instructions, discuss Ask Me Three Transportation: RCT Plan: Anticipate Maryjane will transfer to SNF vs return home with new RN, PT, OT. She will transport via RCT w/c van. She will follow up with her PCP and discharge plan of care. CM will continue to follow. Social Determinants of Health Screening Social Determinants of health last assessed in clinic: 06/14/25 Will the Patient Participate in the Screening?: Yes Do you worry about having a steady place to live?: no Problems where you live: no known problems In the past 12 months, have you had to go without electric, gas, oil or water in your home?: no 1. Within the past 12 months, we worried whether our food would run out before w e got money to buy more.: Never true 2. Within the past 12 months, the food we bought just didn't last and we didn't have money to get more.: Never true Has lack of transportation kept you from medical appointments or from doing things needed for daily living?: no Has anyone in your life made you feel unsafe or unsupported?: no How hard is it for you to pay for the very basics like food, housing, medical care, and heating? Would you say it is:: Not hard at all Do you want help finding or keeping work or a job?: I do not need or want help If for any reason you need help with day-to-day activities such as bathing, preparing meals, shopping, managing finances, etc., do you get the help you need?: I get all the help I need How often do you feel lonely or isolated from those around you?: Rarely Do you speak a language other than Hebrew at home?: No Does the patient want assistance with any of the above?: No Health Related Social Needs Health related social needs: feeling lonely/isolated (Z60.8)
--- NOTE | 2025-06-14 11:10 | PT.INTREAT ---
PT Notes Visit Reasons: Respiratory Failure Date: 06/14/2025 PRECAUTIONS: Fall. Standard. Activity as tolerated. SUBJECTIVE: Pt sitting on the EOB when approached for therapy this morning. agreed to participating with therapy session. Pt in bed visiting with mother when approached for 2nd session this afternoon, agreed to participate with therapy intervention. OBJECTIVE: PAIN: denies VITALS: Monitored by nursing Therapeutic Activities [id number]: Direct one-on-one instruction in dynamic activities to improve functional performance. BED MOBILITY/TRANSFERS (AM) Rolling L/R: SBA Supine-sit: CGA Sit-supine: CGA Sit-stand: CGA Stand-sit: CGA Bed-Wheel Chair: CGA Wheel Chair-bed: CGA (PM) Rolling L/R: Supervision Supine-sit: Supervision Sit-supine: Supervision Sit-stand: SBA x3 Stand-sit: SBA x3 Bed-Wheel Chair: SBA x2 Wheel Chair-bed: SBA x2 Provided skilled cues and instruction on performance and technique throughout. Therapeutic Exercises [id number]: Direct one-on-one instruction in therapeutic exercises to develop strength, endurance, range of motion and flexibility. Exercises: Provided skilled instruction in proper exercise performance Provided skilled manual cues to facilitate proper muscle recruitment and/or form: ASSESSMENT: Pt motivated to perform transfer since pt reports she is looking forward for this morning shower, pt was highly motivated with her transfers since she was demonstrating for her mom how she is going to do it when they got home, pt able to perform transfers safely performing the transfer the way she is used to doing it before. PLAN: Continue with balance training, global strengthening and general conditioning for improved safety, mobility and activity tolerance until pt is ready for DC. TREATMENT CODE/TIME: [id number] 15mins (8:55-9:10am) [id number] 30mins (2:27-2:57pm)
--- NOTE | 2025-06-14 12:13 | W.PM.PROGNOT ---
Date of Service Date of service: 06/14/25 Time of Service: 08:00 Assessment and Plan Assessment and plan (1) Respiratory failure: Status: Resolved Assessment and plan: - Acute hypoxemic requiring intubation secondary to respiratory failure due to presumed unintentional opioid overdose - Sedating meds were discontinued on the morning of 06/10/2025, patient was ultimately successfully extubated to 2 L nasal cannula as of afternoon 06/10/2025 - Wean O2 as tolerated Jun 11: extubated yesterday. On 2L. Discussed ramifications of this degree of intervention and concern for additional episodes with continued narcotic use. Jun 12: Resolved, on room air. (2) Aspiration into airway: Status: Resolved Assessment and plan: - Question of respiratory failure caused by potential aspiration - Initially recommended for patient to be started on vancomycin, Zosyn and Levaquin by pulmonology - Given that shock is resolved and patient has been extubated, will transition to Unasyn and then likely Augmentin at discharge - Follow-up blood cultures Jun 12-: cultures negative, will complete augmentin course (3) Low BP: Status: Resolved Assessment and plan: -Was likely secondary to sedating meds - Levophed has since been discontinued Jun 12: normotensive (4) Chronic atrial fibrillation: Status: Chronic Assessment and plan: - The patient is awake and tolerating p.o. Will give 1 dose of p.o. metoprolol and restart daily tomorrow - During recent visit cardiology recommended against anticoagulation given history multiple falls (5) Opioid use disorder, severe, on maintenance therapy, dependence: Status: Acute Assessment and plan: - Restarted methadone. Not restarting oxycodone - Anticipate Saturday discharge home vs. placement in nursing facility for physical therapy - Jun 14: patient declines nursing facility, will go home Jun 15 Subjective Subjective Interval history since last seen: Mrs. Cline reports that she is continuing to feel better and looks forward to going home soon. Exam Narrative Exam Narrative: General: This is a pleasant, obese woman in no distress HEENT: Normocephalic, atraumatic CV: RRR Resp: CTAB Abd: soft, NTND MSK: voluntary motion x4. Multiple lower extremity skin wounds, dressed. Neuro: awake, alert, no focal deficits Objective Last Vital Signs Temp 36.7 C 06/14/25 11:40 Pulse 65 06/14/25 11:40 Resp 15 06/14/25 11:40 BP 125/70 06/14/25 11:40 Pulse Ox 87 L 06/14/25 11:40 Time Spent with Patient Time Spent with Patient: 25-34 minutes Time was spent: preparing to see the patient(eg.review tests), obtaining and/or reviewing separately otained hiistory, ordering medications,tests, procedures, referring, communicating with other health auto care center manager, indepentently interpreting results, counseling the patient and care coordination
[2025-06-14] MEDS: Doxepin 50 MG CAP 200 MG PO (21:18)
[2025-06-14] MEDS: Simvastatin 20 MG TAB PO (21:18)
[2025-06-15 03:55] VITALS: BP 133/97; PULSE 74; RESP 16; TEMP 36.1; O2SAT 88
[2025-06-15] MEDS: Methadone 10 MG TAB PO (06:18)
[2025-06-15 07:30] VITALS: BP 145/81; PULSE 53; RESP 16; TEMP 36.6; O2SAT 83
[2025-06-15] MEDS: Enoxaparin 40 MG/0.4 ML SYR SC (07:47)
[2025-06-15] MEDS: Gabapentin 800 MG TAB PO ×2 (07:48→12:40)
[2025-06-15] MEDS: Furosemide 20 MG TAB PO (07:48)
[2025-06-15] MEDS: ARIPiprazole 5 MG TAB 10 MG PO (07:48)
[2025-06-15] MEDS: DULoxetine 30 MG CAP 60 MG PO (07:48)
[2025-06-15] MEDS: ARIPiprazole 15 MG TAB 30 MG PO (07:48)
[2025-06-15] MEDS: Metoprolol 12.5 MG TAB PO (07:48)
[2025-06-15] MEDS: Nystatin POWDER 15 GM JAR TP (07:51)
--- NOTE | 2025-06-15 09:10 | PDOC.CMDIS ---
Date of service: 06/15/25 Time of Service: 09:10 LACE Index Scoring Tool Questions: Length of Stay (in days): 4 - 6 Was the patient admitted via the E.D.?: Yes E.D. Visits: 3 Answers: Total Score: 10 Risk of Readmission: High Risk Care Management Discharge Plan Reason for Hospitalization: Respiratory failure Discharge Plan: Maryjane will be discharged home with New [facility] services for RN, PT, OT and IRRIGATION SPECIALIST. She will follow up with her community providers and continue per her discharge plan of care. She will be transported via [employer] w/c van, with Bennie garcia accommodating a lift assist. Patient/Family Education Needs: Review discharge instructions and plan to follow up after discharge. Discuss ask me three. Services Needed at Discharge: Home Health Care Services (New [facility] RN,PT,OT,IRRIGATION SPECIALIST) and Transportation ([employer] w/c van with lift assist coordinated by CM) SDOH Health Related Social Needs: Health related social needs lonely/isolated Health related social needs details lives with mother with dementia, falls often, found unresponsive on the floor prior to admission, non ambulatory
[2025-06-15 09:17] VITALS: O2SAT 94
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
--- NOTE | 2025-06-15 11:42 | PDOC.HHF2F ---
Date of service: 06/15/25 Time of Service: 11:42 Home Health Referral Registered Nurse: Check all that apply Instruct on new or changed medication(s)/assess compliance: Ordered Assess for exacerbation of medical condition, instruct patient/caregivers on signs and symptoms to report for early detection: Ordered (worsening back pain; leg weakness) Physical Therapist: Check all that apply Increase strength & endurance for safe mobility at home: Ordered To design/establish home maintenance program: Ordered Fall reduction therapy program for patient with history of frequent falls: Ordered Home safety evaluation and teaching/gait training including stair management (if applicable): Ordered Occupational Therapist: Evaluate and treat for patient unable to perform ADL/IADL/self-care: Ordered Solid Waste Management Engineer: Assist with community resources: Ordered Home Bound Status Requires the aid of supportive device (check all that apply): Wheelchair Patient has a condition such that leaving home is medically contraindicated (Describe): Bilateral lower extremity weakness, frequent falls; chronic low back pain; awaiting surgery Encounter Date and Reason: I certify that a FTF encounter for this patient was performed on June 15, 2025 and that such encounter was related to the primary reason the patient requires home health services. The encounter was conducted in the following manner: By me as the certifying physician, BENEFITS COUNSELOR, PA or By an inpatient physician, BENEFITS COUNSELOR or PA during an inpatient stay who communicated findings to me, Certification And Authentication I certify that I composed the above information based on my clinical judgment relating to this patient's medical condition and, if applicable, clinical findings communicated to me by the NPP or inpatient physician who performed the FTF encounter. Name of Provider that will be monitoring home health services: Shahzad Olivarez
--- NOTE | 2025-06-15 15:18 | PTTR_ITS ---
PT Notes Visit Reasons: Respiratory Failure Inpatient Physical Therapy Treatment Note [facility] Date: 06/15/25 SUBJECTIVE: Maryjane reports that she is going home today. She knows that people are upset with her for not going to rehab, but she feels like she needs to be h ome, and will commit to doing her PT at home with HH. OBJECTIVE: [] PAIN: right knee and ankle VITALS: monitored by nsg. Therapeutic Activities (68925x[]): Direct one-on-one instruction in dynamic activities to improve functional performance. BED MOBILITY/TRANSFERS Supine-sit: CGA Sit-supine: min assist with LE Sit-stand: CGA/min A Stand-sit: CGA Provided skilled cues and instruction on performance and technique throughout. Therapeutic Exercises ([id number]): Direct one-on-one instruction in therapeutic exercises to develop strength, endurance, range of motion and flexibility. Exercises supine: AP, hip abd/add, hip IR/ER, QS, GS and heel slides. seated: LAQ left (attempted right) marching. sit to stand x3. refused to march in place or attempt taking any steps as she did not want to be too tired for when she goes home. Provided skilled instruction in proper exercise performance ASSESSMENT: tolerated session well. Lots of encouragement to continue as she seems happy to lay in bed today. PLAN: d/c home TREATMENT CODE/TIME: 20 min
--- NOTE | 2025-06-17 07:58 | NUR.NOTE ---
Access chart to reconcile EKG orders with EKG's in [facility]. No EKG found in [facility], order cancelled in [facility]. Nursing Note:
== END 2025-06-15 12:51 | disposition home health service (06) | DRG 917 ==
LOC: ER 06-10 00:40 → ICU 06-10 01:12 → MS 06-12 09:05
PROVIDERS: Family Medicine; Internal Medicine Pulmonary Disease; Admitting Provider Hospitalist; Emergency Provider Emergency Medicine; PCP Family Medicine; Responsible Provider Family Medicine; Visit Provider Hospitalist
DX: I48.20 Chronic atrial fibrillation, unspecified; T40.2X4A Poisoning by other opioids, undetermined, initial encounter; G92.8 Other toxic encephalopathy; F11.20 Opioid dependence, uncomplicated; R57.9 Shock, unspecified; L03.116 Cellulitis of left lower limb; R29.6 Repeated falls; Z59.87 Material hardship due to limited financial resources, not elsewhere classified; Z79.899 Other long term (current) drug therapy; D50.9 Iron deficiency anemia, unspecified; R74.01 Elevation of levels of liver transaminase levels; M48.061 Spinal stenosis, lumbar region without neurogenic claudication; R60.0 Localized edema; I87.2 Venous insufficiency (chronic) (peripheral); M17.12 Unilateral primary osteoarthritis, left knee; F41.9 Anxiety disorder, unspecified; F17.210 Nicotine dependence, cigarettes, uncomplicated; K46.9 Unspecified abdominal hernia without obstruction or gangrene; T17.908A Unspecified foreign body in respiratory tract, part unspecified causing other injury, initial encounter; W44.9XXA Unspecified foreign body entering into or through a natural orifice, initial encounter; G89.29 Other chronic pain; R45.89 Other symptoms and signs involving emotional state; J96.01 Acute respiratory failure with hypoxia
CPT/HCPCS: 00123; 31500; 36415; 36556; 51702; 71045; 76937; 80048; 80053; 80307; 82805; 84145; 85027; 87040; 93005; 94761; 96365; 96366; 97110; 97162; 97530; 99291; J1650; 70450; 80202; 80320; 80329; 81003; 81015; 83735; 83880; 84484; 85025; 85610; 87070; 87205; 93010; 94002; 94640; 94760; 99223; 99231; 99238; J0295; J0696; J1756; J1956; J2543; J2704; J3010; J3373; J3490; J7613

== ENCOUNTER 2025-07-05 16:52 | Inpatient (IN) | payer MEDICARE, SELFPAY ==
[2025-07-05] VITALS (49 sets, daily range): BP systolic 153–205; BP diastolic 75–157; PULSE 48–113; RESP 9–27; TEMP 36.5–36.8; O2SAT 76–98
--- NOTE | 2025-07-05 16:45 | RT.EKG_ITS ---
APPROVED REPORT Exam: Resting ECG Reason for Exam: low oxygen Patient Location: E HR:82 bpm ECG Measurements Heart Rate 82 AXIS RI 174 P 51 QRSd 93 QRS 68 QT 375 T 41 QTc 439 Conclusion Sinus rhythm...normal P axis, V-rate 60- 99 Paired ventricular premature complexes...sequence of 2 V complexes Probable left atrial enlargement...P >50mS, <-0.10mV V1 No STEMI
--- NOTE | 2025-07-05 17:00 | DI.RAD_ITS ---
Exam(s) XR PORTABLE CHEST AP EXAM: XR PORTABLE CHEST AP CLINICAL HISTORY: sob. TECHNIQUE: 2D digital imaging was performed. COMPARISON: CR,XR XR PORTABLE CHEST AP POST LINE from 06/10/2025 FINDINGS: Single AP portable view. Chest leads in place Cardiomegaly again noted. There is a pulmonary venous hypertension pattern borderline interstitial edema. There are no infiltrates in the left lung. There is a 1.5 x 1.0 cm nodular infiltrate in the mid right lung field. However, the number of similar appearing patchy infiltrates which were evident in the right lung on 06/10/2025 has decreased. There are no obvious pleural effusions. IMPRESSION: Cardiomegaly. Pulmonary venous hypertension pattern. 15 x 10 mm nodular infiltrate mid right lung field. Please note that this patient was recently intubated on 06/10/2025. DATA REPOSITORY: RADIATION DOSE DELIVERED:
[2025-07-05] MEDS: Albuterol/Ipratropium 3 ML UPD VIAL UPD (17:30)
[2025-07-05 17:32] LABS: BE (Venous) 11 mmol/L (-2-3); HCO3 (Venous) 37 mmol/L (23-28); O2 Sat (Venous) 50 %; TCO2 (Venous) 36 mmol/L (24-29); pO2 (Venous) 31 mmHg
[2025-07-05 17:34] LABS: Abs Immature Grans 0.06 10^3/uL (0.0-0.06); HCT 38.9 % (36.0-46.0); HGB 9.4 g/dL (11.2-15.7); Immature Grans % 1.0 %; MCH 18.6 pg (27.0-33.0); MCHC 24.2 % (32.0-36.0); MCV 77 fL (80-95); MPV 8.7 fL (8.0-11.0); Platelet Count 373 10^3/uL (130-400); RBC 5.06 10^6/uL (3.93-5.22); RDW 20.6 % (11.7-14.6); RDW-SD 56.2 fL; WBC 6.21 10^3/uL (4.4-10.8)
[2025-07-05 17:36] LABS: pCO2 (Venous) 72 mmHg (41-51)
[2025-07-05 17:47] LABS: Anisocytosis 1+; Hypochromasia 1+; Poikilocytes 1+
[2025-07-05 17:54] LABS: Magnesium 2.3 mg/dL (1.6-2.6); Troponin I 22 ng/L (<35)
[2025-07-05 17:56] LABS: ALT 12 U/L (10-49); AST 15 U/L (<34); Albumin 4.1 g/dL (3.4-5.0); Alkaline Phosphatase 109 U/L (46-116); Anion Gap 4.8 mmol/L (3-11); BUN 11 mg/dL (9-23); Bilirubin, Total 0.30 mg/dL (0.2-1.2); CO2 38.2 mmol/L (20.0-31.0); Calcium 9.3 mg/dL (8.3-10.6); Chloride 100 mmol/L (98-107); Glucose 95 mg/dL (74-106); Potassium 3.6 mmol/L (3.5-5.1); Sodium 143 mmol/L (136-145); Total Protein 7.0 g/dL (5.7-8.2)
--- NOTE | 2025-07-05 18:00 | DI.CT_ITS ---
Exam(s) CT CHEST PE CTA EXAM: CT CHEST PE CTA CLINICAL HISTORY: hypoxia, elevated ddimer. TECHNIQUE: Imaging Protocol: Axial CT angiography was performed with multi- slice acquisition and multi-planar reconstructions as well as axial, coronal and sagittal MIP reconstructions. Computer aided detection (CAD) was utilized. CONTRAST MATERIAL: Intravenous: Omnipaque 350 Contrast volume:100 ml COMPARISON: CT CT CHEST PE ABD PELVIS W from 05/13/[address] CHEST/ABD/PEL W from 05/18/2025 CR,XR XR PORTABLE CHEST AP from 06/09/2025 CR,XR XR PORTABLE CHEST AP POST LINE from 06/10/2025 CR XR PORTABLE CHEST AP from 07/05/2025 FINDINGS: Pulmonary Arteries: Prominent. No evidence of filling defect to suggest pulmonary emboli. Mediastinum and Tiffany: No dominant adenopathy or fluid collection. Pulmonary parenchyma: Mildly limited evaluation due to expiratory changes. Mild centrilobular emphysema greater at the upper lobes. No consolidation or dominant measurable mass. Mildly increased interlobular septal thickening could indicate mild pulmonary edema. Pleura: Small right pleural effusion. Trace left pleural effusion. Small amount of fluid in the fissures. No pneumothorax. Heart: The heart is moderately dilated. No pericardial effusion. Coronary artery calcifications. Aorta: Thoracic aorta non-dilated. No dissection. Upper abdomen: No acute findings. Bones: Multiple right rib fractures, subacute. Tubes, Catheters, and Lines: None Soft tissues: Diffuse edema. IMPRESSION: No evidence of pulmonary embolism. Small right and trace left pleural effusion. Mild pulmonary edema. The preliminary [facility] report was reviewed. RADIATION DOSE DELIVERED: 369.55mGy.cm Total DLP DATA REPOSITORY: All CT scans at this facility are submitted to the National Radiology Data Registry (NRDR) Dose Index Registry (DIR) with the [employer] (A[employer]). RADIATION OPTIMIZATION: All CT scans at this facility use at least one of these dose optimization techniques: automated exposure control; mA and/or kV adjustment per patient size (includes targeted exams where dose is matched to clinical indication); or iterative reconstruction.
[2025-07-05 18:02] LABS: D-Dimer 1021 ng/mlFEU (<500)
[2025-07-05 18:15] LABS: COVID-19 PCR Negative (Negative); RSV PCR Negative (Negative)
[2025-07-05 18:48] LABS: Troponin I 25 ng/L (<35)
[2025-07-05] MEDS: Furosemide 100 MG/10 ML VIAL 80 MG IVP (18:49)
[2025-07-05 19:15] LABS: Glucose Negative (Negative)
[2025-07-05 19:22] LABS: C & S Indicated? No; RBC Negative HPF (0-2)
[2025-07-05] MEDS: Normal Saline Flush 10 ML SYR IVP (19:38)
[2025-07-05] MEDS: Normal Saline - Diluent 50 ML VIAL IJ (19:39)
[2025-07-05] MEDS: Omnipaque 350 MG/ML 100 ML BTL IJ (19:39)
[2025-07-05 19:57] LABS: BE (Venous) 13 mmol/L (-2-3); HCO3 (Venous) 39 mmol/L (23-28); O2 Sat (Venous) 50 %; TCO2 (Venous) 37 mmol/L (24-29); pO2 (Venous) 30 mmHg
[2025-07-05 19:59] LABS: pCO2 (Venous) 68 mmHg (41-51)
[2025-07-05] MEDS: cefTRIAXone 1 GM/50 ML BAG IVPB (20:08)
[2025-07-05] MEDS: Metoprolol 5 MG/5 ML VIAL IVP (20:09)
--- NOTE | 2025-07-05 20:09 | DI.[facility]_ITS ---
PROCEDURE INFORMATION: Exam: CTA Chest With Contrast Exam date and time: 07/05/2025 7:35 PM Age: 64 years old Clinical indication: Other: Hypoxia, elevated ddimer TECHNIQUE: Imaging protocol: Computed tomographic angiography of the chest with contrast. Exam focused on the arteries. 3D rendering (Not supervised by radiologist): MIP and/or 3D reconstructed images were created by the technologist. Contrast material: OMNI 350; Contrast volume: 100 ml; Contrast route: INTRAVENOUS (IV); COMPARISON: CT CHEST PE ABD PELVIS W 05/13/2025 11:40 PM FINDINGS: Pulmonary arteries: No acute pulmonary embolus. Aorta: Unremarkable. No aortic aneurysm. No aortic dissection. Thyroid: The thyroid has a heterogeneous appearance and is incompletely characterized on CT. Lungs: There is moderate centrilobular emphysema with an apical predominance. Mild atelectasis is present at the dependent lung bases. Pleural spaces: There is a small right and a trace left low-density pleural effusion. Heart: The heart is moderately enlarged. No pericardial effusion Coronary arteries: There are scattered atheromatous coronary artery calcifications. Lymph nodes: There is a 1.3 cm in diameter pretracheal lymph node. No other mediastinal or hilar adenopathy. Bones/joints: Multiple healing lateral right rib fractures are noted. Bones have a normal appearance. No acute fracture or suspicious bone lesion. Soft tissues: There is diffuse anasarca throughout the soft tissues. IMPRESSION: 1. No pulmonary embolus. 2. Solitary enlarged lymph nodes suggesting reactive adenopathy. 3. No acute pulmonary findings. 4. Heterogeneous appearance of the thyroid. If further characterization is warranted, nonemergent thyroid ultrasound could be used. Dictated and Authenticated by: Cris Kerns MD. Orderin Kylie Kwong MD
[2025-07-05] MEDS: Metoprolol CR 25 MG TABCR 12.5 MG PO (20:10)
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
[2025-07-05] MEDS: Enoxaparin 40 MG/0.4 ML SYR SC (22:52)
--- NOTE | 2025-07-05 23:16 | W.PC.ACHO ---
Registration Status: ADM IN Primary Language: Preferred Language: Persian ED Information & Data Chief Complaint RespSymp 07/05/25 22:58 Triage Note pt with history of afib pt 07/05/25 16:52 rate controlled at this time pt o2 saturation 80's on arrival of ems Medical / Surgical History (Last Reviewed 05/18/25 @ 18:45 by Rom Carrillo) Displaced trimalleolar fracture of right ankle Gastric ulcer (08/18/05) Depression (07/18/05) Gastroparesis (07/18/05) Morbid obesity Chronic right-sided lumbar radiculopathy Osteoporosis Type 2 diabetes mellitus Essential hypertension History of fractured rib COPD (chronic obstructive pulmonary disease) (Last Reviewed 05/18/25 @ 18:45 by Rom Carrillo) History of ankle surgery History of back surgery (10/17/17) ULCER/STOMACH SURGERY Replacement of total knee joint (04/17/17) Total replacement of hip KNEE SURGERY EGD - MAC Cholecystectomy (~06/2013) Most Recent Vital Signs Temperature 36.5 C 07/05/25 22:22 Temperature Source Temporal Artery Scan 07/05/25 22:04 Pulse 105 H 07/05/25 23:03 Pulse Rhythm Irregular 07/05/25 22:22 Pulse 104 H 07/05/25 21:50 Respiratory Rate 18 07/05/25 22:22 Respiratory Effort Normal 07/05/25 22:22 Respiratory Depth Normal 07/05/25 22:22 Respiratory Pattern Normal 07/05/25 22:22 Blood Pressure 154/75 H 07/05/25 22:22 Blood Pressure Mean 113 07/05/25 22:04 Pulse Oximetry 94 07/05/25 23:03 Oxygen Delivery Method Nasal Cannula 07/05/25 23:03 Oxygen Flow Rate 2 07/05/25 23:03 Fraction of Inspired Oxygen (FIO2) 28 07/05/25 20:20 Pain Level 0 07/05/25 22:22 Comment refusing BiPAP, CPAP 07/05/25 21:00 Allergies No Known Drug Allergies Allergy (Unknown, Verified 07/05/25 17:03) none Active Medications Generic Name Dose Route Start Last Admin Trade Name Freq PRN Reason Stop Dose Admin Enoxaparin Sodium 40 mg 07/05/25 22:00 07/05/25 22:54 Enoxaparin 40 Mg/0.4 Ml Syr SC Not Given Q24H TAINA Iohexol 100 ml 07/05/25 19:45 07/05/25 19:39 Omnipaque 350 Mg/Ml 100 Ml Btl IJ 08/04/25 23:59 100 ml DIRECTED TAINA Administration Sodium Chloride 50 ml 07/05/25 19:45 07/05/25 19:39 Normal Saline - Diluent 50 Ml Vial IJ 50 ml DIRECTED TAINA Administration Sodium Chloride 0 ml 07/05/25 19:37 07/05/25 19:38 Normal Saline Flush 10 Ml Syr IVP 10 ml PRN PRN Administration IV IV Catheter Type [Left Peripheral IV Antecubital] IV Catheter Gauge [Left 20 Antecubital] Diet Orders Category Date Time Status Low Sodium [DIET] Nutrition 07/06/25 Breakfast Ordered Diagnostics 07/05/25 07/05/25 07/05/25 Range/Units 19:52 19:04 18:20 WBC (4.4-10.8) 10^3/uL RBC (3.93-5.22) 10^6/uL Hgb (11.2-15.7) g/dL Hct (36.0-46.0) % MCV (80-95) fL MCH (27.0-33.0) pg MCHC (32.0-36.0) % RDW (11.7-14.6) % Plt Count (130-400) 10^3/uL MPV (8.0-11.0) fL Immature Gran % % Neutrophils % % Lymphocytes % % Monocytes % % Eosinophils % % Basophils % % Nucleated RBC % (0.0-0.3) % Absolute Neutrophils (1.2-6.7) 10^3/uL Absolute Lymphocytes (1.2-3.4) 10^3/uL Absolute Monocytes (0.1-0.8) 10^3/uL Absolute Eosinophils (0.0-0.7) 10^3/uL Absolute Basophils (0.0-0.2) 10^3/uL RBC Morphology Hypochromasia Poikilocytosis Anisocytosis D-Dimer (<500) ng/mlFEU VBG pH 7.36 VBG pCO2 68 H* VBG pO2 30 VBG HCO3 39 H VBG Total CO2 37 H VBG O2 Saturation 50 VBG Base Excess 13 H VBG Lactate (<or=2.0) mmol/L Sodium (136-145) mmol/L Potassium (3.5-5.1) mmol/L Chloride (98-107) mmol/L Carbon Dioxide (20.0-31.0) mmol/L Anion Gap (3-11) mmol/L BUN (9-23) mg/dL Creatinine (0.55-1.02) mg/dL Est GFR (CKD-EPI 2020) (mL/min/1.73m2) Glucose (74-106) mg/dL Calcium (8.3-10.6) mg/dL Magnesium (1.6-2.6) mg/dL Total Bilirubin (0.2-1.2) mg/dL AST (<34) U/L ALT (10-49) U/L Alkaline Phosphatase (46-116) U/L Troponin I 25 (<35) ng/L NT-Pro-B Natriuret Pep (<300) pg/mL Total Protein (5.7-8.2) g/dL Albumin (3.4-5.0) g/dL Urine Color Yellow (Yellow) Urine Clarity Clear (Clear) Urine pH 7.0 (5-8) Ur Specific [place] 1.015 (1.005-1.025) Urine Protein Negative (Neg-Trace) mg/dL Urine Ketones Negative (Negative) mg/dL Urine Blood Negative (Negative) Urine Nitrite Positive H (Negative) Urine Bilirubin Negative (Negative) Urine Urobilinogen 0.2 (Up to 0.2) mg/dL Ur Leukocyte Esterase Negative (Negative) Urine RBC Negative (0-2) HPF Urine WBC 5-10 (0-5) HPF Ur Epithelial Cells Few (Negative) HPF Urine Crystals Negative (Negative) HPF Urine Bacteria Packed (Negative) HPF Urine Casts Negative (Negative) LPF Urine Mucus Negative (Negative) Ur Culture Indicated? No Urine Glucose Negative (Negative) mg/dL COVID-19 Source SARS-CoV-2 (PCR) (Negative) Influenza Type A (PCR) (Negative) Influenza Type B (PCR) (Negative) RSV (PCR) (Negative) 07/05/25 07/05/25 07/05/25 Range/Units 17:33 17:20 17:11 WBC 6.21 (4.4-10.8) 10^3/uL RBC 5.06 (3.93-5.22) 10^6/uL Hgb 9.4 L (11.2-15.7) g/dL Hct 38.9 (36.0-46.0) % MCV 77 L (80-95) fL MCH 18.6 L (27.0-33.0) pg MCHC 24.2 L (32.0-36.0) % RDW 20.6 H (11.7-14.6) % Plt Count 373 (130-400) 10^3/uL MPV 8.7 (8.0-11.0) fL Immature Gran % 1.0 % Neutrophils % 72.2 % Lymphocytes % 19.8 % Monocytes % 6.4 % Eosinophils % 0.0 % Basophils % 0.6 % Nucleated RBC % 0.3 (0.0-0.3) % Absolute Neutrophils 4.48 (1.2-6.7) 10^3/uL Absolute Lymphocytes 1.23 (1.2-3.4) 10^3/uL Absolute Monocytes 0.40 (0.1-0.8) 10^3/uL Absolute Eosinophils 0.00 (0.0-0.7) 10^3/uL Absolute Basophils 0.04 (0.0-0.2) 10^3/uL RBC Morphology See Below Hypochromasia 1+ Poikilocytosis 1+ Anisocytosis 1+ D-Dimer 1021 H (<500) ng/mlFEU VBG pH 7.32 Cancelled VBG pCO2 72 H* Cancelled VBG pO2 31 Cancelled VBG HCO3 37 H Cancelled VBG Total CO2 36 H Cancelled VBG O2 Saturation 50 Cancelled VBG Base Excess 11 H Cancelled VBG Lactate 1.5 (<or=2.0) mmol/L Sodium 143 (136-145) mmol/L Potassium 3.6 (3.5-5.1) mmol/L Chloride 100 (98-107) mmol/L Carbon Dioxide 38.2 H (20.0-31.0) mmol/L Anion Gap 4.8 (3-11) mmol/L BUN 11 (9-23) mg/dL Creatinine 0.5 L (0.55-1.02) mg/dL Est GFR (CKD-EPI 2020) 127.63 (mL/min/1.73m2) Glucose 95 (74-106) mg/dL Calcium 9.3 (8.3-10.6) mg/dL Magnesium 2.3 (1.6-2.6) mg/dL Total Bilirubin 0.30 (0.2-1.2) mg/dL AST 15 (<34) U/L ALT 12 (10-49) U/L Alkaline Phosphatase 109 (46-116) U/L Troponin I 22 (<35) ng/L NT-Pro-B Natriuret Pep 75807 H (<300) pg/mL Total Protein 7.0 (5.7-8.2) g/dL Albumin 4.1 (3.4-5.0) g/dL Urine Color (Yellow) Urine Clarity (Clear) Urine pH (5-8) Ur Specific [place] (1.005-1.025) Urine Protein (Neg-Trace) mg/dL Urine Ketones (Negative) mg/dL Urine Blood (Negative) Urine Nitrite (Negative) Urine Bilirubin (Negative) Urine Urobilinogen (Up to 0.2) mg/dL Ur Leukocyte Esterase (Negative) Urine RBC (0-2) HPF Urine WBC (0-5) HPF Ur Epithelial Cells (Negative) HPF Urine Crystals (Negative) HPF Urine Bacteria (Negative) HPF Urine Casts (Negative) LPF Urine Mucus (Negative) Ur Culture Indicated? Urine Glucose (Negative) mg/dL COVID-19 Source Nasopharynx SARS-CoV-2 (PCR) Negative (Negative) Influenza Type A (PCR) Negative (Negative) Influenza Type B (PCR) Negative (Negative) RSV (PCR) Negative (Negative) 07/05/25 19:04 Urine Culture - Pending Urine - Cath Paige Indwelling Intake and Output - 24 Hour Total 07/05/25 16:45 thru 07/05/25 22:42 Intake Total 170 Output Total 3000 Balance -2830 Weight 103.4 kg Intake: IV 50 Oral 120 Output: Urine 3000 Other: Urine Color Pale Urine Appearance Clear Comment no issue with paige placement. Assisted by CAMILLE Wiess Urinary Catheter Urinary Catheter Date of 07/05/25 Insertion [Urethral (Paige)] Time of insertion [Urethral ( 19:00 Paige)] Falls Risk Assessment History of Falls Previous History 07/05/25 22:22 Contributing Factors Unstable 07/05/25 22:22 Ambulatory Aids Uses ambulatory device 07/05/25 22:22 Tubes/Lines W/no contributing factors 07/05/25 22:22 Gait Evaluation W/no contributing factors 07/05/25 22:22 Cognition No cognitive impairment 07/05/25 22:22 Fall Total Score 53 07/05/25 22:22 Level of Risk High Risk 07/05/25 22:22 Attestation Statement: By documenting the first initial, last name, and credentials of the reporting nurse below, both parties acknowledge that all relevant information regarding the patient handoff has been communicated, and that all questions have been addressed to ensure continuity and safety of care. Additional [facility] to [facility] related to low O2. at the ER PT BP 174/98, o2 sat 87% on pipap, pt refused to use PIPAP, O2 provided via NC @ 4L/min, PT A&OX4, LAC IV access, paige on place with clear urine on bag, pt recieved metoprolol IV and PO at ER, Report Received Suyapa RICHARDSON
[2025-07-05] MEDS: Gabapentin 800 MG TAB PO (23:21)
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
[2025-07-06 01:00] VITALS: O2SAT 85
[2025-07-06 01:22] VITALS: O2SAT 92
[2025-07-06 04:30] VITALS: O2SAT 93
[2025-07-06 07:00] LABS: Abs Immature Grans 0.03 10^3/uL (0.0-0.06); HCT 34.8 % (36.0-46.0); HGB 8.6 g/dL (11.2-15.7); Immature Grans % 0.5 %; MCH 18.7 pg (27.0-33.0); MCHC 24.7 % (32.0-36.0); MCV 76 fL (80-95); MPV 9.2 fL (8.0-11.0); Platelet Count 341 10^3/uL (130-400); RBC 4.60 10^6/uL (3.93-5.22); RDW 20.3 % (11.7-14.6); RDW-SD 54.9 fL; WBC 5.58 10^3/uL (4.4-10.8)
[2025-07-06 07:20] LABS: Anisocytosis 2+; Hypochromasia 1+; Microcytosis 1+; Stomatocytes 2+
[2025-07-06 07:57] VITALS: BP 134/94; PULSE 84; RESP 18; TEMP 36.4; O2SAT 91
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
[2025-07-06 08:11] LABS: ALT 9 U/L (10-49); AST 12 U/L (<34); Albumin 3.3 g/dL (3.4-5.0); Alkaline Phosphatase 91 U/L (46-116); BUN 10 mg/dL (9-23); Bilirubin, Total 0.30 mg/dL (0.2-1.2); Calcium 9.1 mg/dL (8.3-10.6); Chloride 98 mmol/L (98-107); Glucose 77 mg/dL (74-106); Potassium 3.2 mmol/L (3.5-5.1); Sodium 145 mmol/L (136-145); Total Protein 5.7 g/dL (5.7-8.2)
[2025-07-06 08:12] LABS: CO2 > 40.0 mmol/L (20.0-31.0)
[2025-07-06] MEDS: ARIPiprazole 5 MG TAB 10 MG PO (09:01)
[2025-07-06] MEDS: Metoprolol CR 25 MG TABCR 12.5 MG PO (09:01)
[2025-07-06] MEDS: predniSONE 20 MG TAB 40 MG PO (09:01)
[2025-07-06] MEDS: DULoxetine 30 MG CAP 60 MG PO (09:02)
[2025-07-06] MEDS: ARIPiprazole 15 MG TAB 30 MG PO (09:02)
[2025-07-06] MEDS: Gabapentin 800 MG TAB PO ×2 (09:02→12:13)
[2025-07-06] MEDS: Normal Saline Flush 10 ML SYR IVP ×3 (09:18→12:13)
[2025-07-06] MEDS: Furosemide 40 MG/4 ML VIAL IVP (09:18)
[2025-07-06] MEDS: Methadone 10 MG TAB PO (09:18)
[2025-07-06] MEDS: POTASSIUM CHLORIDE 20 MEQ, POTASSIUM CHLORIDE 10 MEQ 30 MEQ PO (10:17)
[2025-07-06] MEDS: IRON SUCROSE COMPLEX 300 MG in Normal Saline 250 ML 176.667 MG IVPB (10:41)
[2025-07-06 11:45] LABS: TSH 1.41 uIU/mL (0.55-4.78)
--- NOTE | 2025-07-06 12:43 | NT_ITS ---
PT Notes Visit Reasons: Respiratory Failure Pt approached for PT evaluation. Pt seated in chair with Oxygen on and receiving IV infusion of iron. She stated she did not want or need PT because she is going home later this afternoon after her infusion is completed. RN and WOOD PATTERN [employer]KER notified.Pt encouraged to participate however continued to decline. no charge for 15 mins spent with patient.
--- NOTE | 2025-07-06 13:30 | W.NUTRFU ---
Date of service: 07/06/25 Time of Service: 13:30 Nutrition Note NOTE: Maryjane relayed interested in low sodium education to respiratory therapy - visited for education today. Maryjane with long hx of respiratory ailments related to chronic tobacco use and other factors. Current BMI congruent with class 2 obesity. weight trend hard to decipher related to hx of fluid shifts/edema. feels her intake is fair - denies significant unintentional wt loss
--- NOTE | 2025-07-06 15:16 | CHAPLAIN ---
Maryjane was up in her chair when I visited. She said she was very tired, and seemed to nod off at times while we were talking. Maryjane said she believes she'll be going home today. She was interested in napping and calling her mom.
[2025-07-06 16:24] LABS: Lab Add On Test DONE
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
--- NOTE | 2025-07-06 18:38 | RESPIRATORY ---
Addendum entered by Kamla Burroughs 07/07/25 17:11: Serial Numbers for Home O2 Concentrator and Battery: [id number] Addendum entered by Kamla Burroughs 07/07/25 08:51: 07/06/2025 Patient now agreeable to home oxygen. Patient was previously qualified for home oxygen on 05/26/25 but then refused it from the delivery personnel after discharge from hospital. Patient is wheelchair bound and only transfers in and out of the wheelchair. Oxygen qualification done at rest. Patient required 1L continuous to maintain greater than 88% SPO2 or 2L pulse dose to maintain greater than 88% SPO2. Patient SPO2 on room air was 84%. Oxygen safety reviewed with patient and patient was sent home with a portable oxygen concentrator from [employer] and was given instruction on how to use concentrator. Original Note: ABG was ordered, this RT attempted to obtain sample and was on the second try when patient refused and said to take the needle out of her arm due to pain. Bandaid applied.
--- NOTE | 2025-07-06 19:05 | CMPROGNOTE_ITS ---
Date of service: 07/06/25 Time of Service: 19:05 Care Management Progress Note Progress Note Text Progress Note Text: Maryjane was admitted late yesterday evening, and discharged this afternoon. She was lying in her bed when CM met with her. She stated that things have been going well at home, although she feels that she should have supplemental O2 at home now, since her saturation was very low, which is what brought her back to the hospital. RT worked with Maryjane on her previous admission, and set up home O2, which Maryjane declined when they attempted to deliver it to her at home. She stated that she now recognizes that she needs it, and is accepting of it. RT qualified her again today, and is setting up home O2 to be delivered. Maryjane was insistent on going home today, and stated that she feels ready for discharge. CM coordinated RCT w/c van with a lift assist by Bennie Camarena. She returned home with a resumption of HH services and new home O2. She stated that she had a recent home visit with her PCP, whom she has a good relationship with, and will follow up with again. CM will continue to follow. Discharge Potential Discharge Needs: PCP F/U Appt and Other (new home O2) Anticipated Barriers to Discharge: None Identified Patient/Family Education Needs: Review discharge instructions, discuss Ask Me Three Transportation: RCT RCT Transportation: Wheel chair van (with a lift assist) Plan: Maryjane returned home today with a resumption of HH services and new home O2. She transported via RCT w/c van with a lift assist. She will follow up with her PCP and discharge plan of care. She was happy to be going home today. CM will continue to follow. Social Determinants of Health Screening Social Determinants of health last assessed in clinic: 07/06/25 Will the Patient Participate in the Screening?: Yes Do you worry about having a steady place to live?: no Problems where you live: no known problems In the past 12 months, have you had to go without electric, gas, oil or water in your home?: no 1. Within the past 12 months, we worried whether our food would run out before we got money to buy more.: Don't know/refused 2. Within the past 12 months, the food we bought just didn't last and we didn't have money to get more.: Don't know/refused Has lack of transportation kept you from medical appointments or from doing things needed for daily living?: no Has anyone in your life made you feel unsafe or unsupported?: no How hard is it for you to pay for the very basics like food, housing, medical care, and heating? Would you say it is:: Not hard at all Do you want help finding or keeping work or a job?: I do not need or want help If for any reason you need help with day-to-day activities such as bathing, preparing meals, shopping, managing finances, etc., do you get the help you need?: I don?t need any help How often do you feel lonely or isolated from those around you?: Never Do you speak a language other than Pashto at home?: No Does the patient want assistance with any of the above?: No Anticipated HH Services Anticipated HH Services at Discharge [facility] Resumption, Anticipated Date of Discharge: 07/06/25. Following Provider: Dr. Olivarez.
== END 2025-07-06 16:59 | disposition home health service (06) | DRG 291 ==
LOC: ER 18:33 → MS 21:55
PROVIDERS: Admitting Provider Hospitalist; Emergency Provider Physician Assistant; PCP Family Medicine; Responsible Provider Nurse Practitioner Family; Visit Provider Hospitalist
DX: I48.20 Chronic atrial fibrillation, unspecified (principal); E04.1 Nontoxic single thyroid nodule; R59.0 Localized enlarged lymph nodes; R91.1 Solitary pulmonary nodule; J96.01 Acute respiratory failure with hypoxia; J96.12 Chronic respiratory failure with hypercapnia; F11.20 Opioid dependence, uncomplicated; R79.1 Abnormal coagulation profile; R29.6 Repeated falls; Z79.899 Other long term (current) drug therapy; F43.22 Adjustment disorder with anxiety; I11.0 Hypertensive heart disease with heart failure; I50.9 Heart failure, unspecified; I27.20 Pulmonary hypertension, unspecified; D50.9 Iron deficiency anemia, unspecified; R74.01 Elevation of levels of liver transaminase levels; M48.061 Spinal stenosis, lumbar region without neurogenic claudication; E66.01 Morbid (severe) obesity due to excess calories; M81.0 Age-related osteoporosis without current pathological fracture; E11.43 Type 2 diabetes mellitus with diabetic autonomic (poly)neuropathy; K31.84 Gastroparesis; Z87.11 Personal history of peptic ulcer disease; M54.16 Radiculopathy, lumbar region; F32.A Depression, unspecified; Z87.891 Personal history of nicotine dependence; Z68.37 Body mass index [BMI] 37.0-37.9, adult; R45.89 Other symptoms and signs involving emotional state; Z60.8 Other problems related to social environment
CPT/HCPCS: 00123; 36415; 51702; 71275; 80053; 82805; 87077; 87637; 93005; 94640; 96365; 96375; 99222; 99291; J1650; 71045; 81003; 81015; 83605; 83735; 83880; 84439; 84443; 84484; 85025; 85379; 87086; 87186; 93010; 99239; J0696; J1756; J1938; J3490; J7512; J7620

== ENCOUNTER → 2025-07-06 11:44 | Outpatient (BNVA) | payer MEDICARE, SELFPAY | PROVIDERS: PCP Family Medicine; Referring Provider Family Medicine; Visit Provider Internal Medicine Pulmonary Disease ==

== ENCOUNTER 2025-07-10 11:44 | Inpatient (IN) | payer MEDICARE, SELFPAY ==
[2025-07-10] VITALS (249 sets, daily range): BP systolic 79–190; BP diastolic 39–111; PULSE 40–104; RESP 4–45; TEMP 36.9; O2SAT 84–100
--- NOTE | 2025-07-10 11:45 | DI.RAD_ITS ---
Exam(s) XR PORTABLE CHEST AP EXAM: XR PORTABLE CHEST AP CLINICAL HISTORY: hypoxia TECHNIQUE: 2D digital imaging was performed. COMPARISON: CT CT CHEST PE CTA from 07/05/2025 CR XR PORTABLE CHEST AP from 07/05/2025 FINDINGS: Exam is limited by under penetration and overlying monitoring leads. An endotracheal tube has been placed which is at the level of the aortic arch. A nasogastric tube projects in the stomach. LUNGS: prominent pulmonary vascularity. No visible effusion or pneumothorax however the patient is supine. Increased interstitial markings which may represent CHF. HEART: Enlarged, unchanged. AORTA: Normal diameter. BONES: Right rib fractures again noted. Hardware in lumbar spine Soft tissues: Unremarkable. IMPRESSION: Satisfactory placement of endotracheal tube and nasogastric tube. Cardiomegaly and CHF. The preliminary [facility] report was reviewed. DATA REPOSITORY: RADIATION DOSE DELIVERED:
--- NOTE | 2025-07-10 11:45 | RT.EKG_ITS ---
APPROVED REPORT Exam: Resting ECG Reason for Exam: AMS Patient Location: E HR:82 bpm ECG Measurements Heart Rate 82 AXIS AZ 156 P 44 QRSd 100 QRS 66 QT 376 T 21 QTc 439 Conclusion Sinus rhythm...normal P axis, V-rate 60- 99 Nonspecific T abnormalities, anterior leads...T <-0.10mV, V2-V4 Physician: No STEMI
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
[2025-07-10] MEDS: Albuterol/Ipratropium 3 ML UPD VIAL UPD ×2 (12:10→14:44)
--- NOTE | 2025-07-10 12:15 | DI.CT_ITS ---
Exam(s) CT HEAD CERVICAL SPINE WO EXAM: CT HEAD CERVICAL SPINE WO CLINICAL HISTORY: AMS, s/p unwitnessed fall. TECHNIQUE: Imaging Protocol: Axial computed tomography images with coronal and sagittal reformatted images were created and reviewed COMPARISON: CT CT HEAD WO from 01/14/[address] HEAD WO from 06/09/2025 FINDINGS: Head CT Ventricles and Extra axial spaces: Normal in size and morphology for the patient's age. Hemorrhage: None. Cerebral parenchyma: No evidence of mass or acute infarct. Prominent frontotemporal atrophy, unchanged. White matter changes of small vessel disease. Midline shift: None. Brainstem/Cerebellum: Normal. Calvarium: Normal. Visualized Paranasal sinuses/Mastoids: Mild mucous retention in the left maxillary and a few ethmoid ethmoid sinuses. Fluid in nasal cavity. Soft tissues: Posterior sebaceous cyst again noted. Cervical Spine CT BONES: Vertebral body heights are maintained. Alignment is normal. There is no evidence of acute fracture. Degenerative disc changes and facet degenerative changes are seen greater at C4- 5 through C6-7 and at C1-2.. SOFT TISSUES: Endotracheal tube and nasogastric tube noted no paraspinal hematoma. The airway appears intact. No pneumothorax is seen at the lung apices. IMPRESSION: Head CT: Prominent frontal temporal atrophy. No acute abnormality. C-spine CT: Degenerative changes, no acute abnormality. The preliminary [facility] report was reviewed. RADIATION DOSE DELIVERED: Total DLP DATA REPOSITORY: All CT scans at this facility are submitted to the National Radiology Data Registry (NRDR) Dose Index Registry (DIR) with the [employer] (A[employer]). RADIATION OPTIMIZATION: All CT scans at this facility use at least one of these dose optimization techniques: automated exposure control; mA and/or kV adjustment per patient size (includes targeted exams where dose is matched to clinical indication); or iterative reconstruction.
[2025-07-10 13:18] LABS: BE (Venous) 11 mmol/L (-2-3); HCO3 (Venous) 38 mmol/L (23-28); O2 Sat (Venous) 79 %; TCO2 (Venous) 36 mmol/L (24-29); pO2 (Venous) 49 mmHg
[2025-07-10 13:21] LABS: pCO2 (Venous) 77 mmHg (41-51)
[2025-07-10 13:22] LABS: Abs Immature Grans 0.04 10^3/uL (0.0-0.06); HCT 38.7 % (36.0-46.0); HGB 9.3 g/dL (11.2-15.7); Immature Grans % 0.6 %; MCH 19.1 pg (27.0-33.0); MCHC 24.0 % (32.0-36.0); MCV 80 fL (80-95); MPV 8.9 fL (8.0-11.0); Platelet Count 340 10^3/uL (130-400); RBC 4.86 10^6/uL (3.93-5.22); RDW 21.6 % (11.7-14.6); RDW-SD 58.9 fL; WBC 7.01 10^3/uL (4.4-10.8)
[2025-07-10 13:23] LABS: COVID-19 PCR Negative (Negative); RSV PCR Negative (Negative)
[2025-07-10 13:37] LABS: Troponin I 16 ng/L (<35)
[2025-07-10] MEDS: Naloxone 0.4 MG/ML VIAL 0.2 MG IVP (13:37)
[2025-07-10] MEDS: methylPREDNISolone SUCC 125 MG VIAL IVP (13:37)
[2025-07-10 13:38] LABS: ALT 11 U/L (10-49); AST 15 U/L (<34); Albumin 4.0 g/dL (3.4-5.0); Alkaline Phosphatase 105 U/L (46-116); Anion Gap 5 mmol/L (3-11); BUN 7 mg/dL (9-23); Bilirubin, Total 0.30 mg/dL (0.2-1.2); CO2 38.3 mmol/L (20.0-31.0); Calcium 9.1 mg/dL (8.3-10.6); Chloride 99 mmol/L (98-107); Glucose 98 mg/dL (74-106); Potassium 3.8 mmol/L (3.5-5.1); Sodium 142 mmol/L (136-145); Total Protein 6.6 g/dL (5.7-8.2)
[2025-07-10 13:40] LABS: TSH (W/Ref FT4) 1.78 uIU/mL (0.55-4.78)
[2025-07-10 13:48] LABS: Anisocytosis 2+; D-Dimer 775 ng/mlFEU (<500); Hypochromasia 2+
[2025-07-10 13:49] LABS: Poikilocytes 2+
--- NOTE | 2025-07-10 14:00 | DI.CT_ITS ---
Exam(s) CT CHEST PE CTA EXAM: CT CHEST PE CTA CLINICAL HISTORY: SOB, O2 sat 60% on RA, h/o afib not on anticoag. TECHNIQUE: Imaging Protocol: Axial CT angiography was performed with multi- slice acquisition and multi-planar reconstructions as well as axial, coronal and sagittal MIP reconstructions. Computer aided detection (CAD) was utilized. CONTRAST MATERIAL: Intravenous: Omnipaque 350 Contrast volume:100 ml COMPARISON: CT CT CHEST PE CTA from 07/05/2025 FINDINGS: Exam is limited by streak artifact related to arm positioning and body habitus as well as expiratory changes and mild respiratory motion, greater at the lung bases. Pulmonary Arteries: Small embolus noted in right lower lobe pulmonary artery branch. Question of additional embolus in the medial basilar segment. Mediastinum and Tiffany: No dominant adenopathy or fluid collection. Pulmonary parenchyma: Dependent changes. Interlobular septal thickening consistent with pulmonary edema. No consolidation or dominant measurable mass. Pleura: Trace right pneumothorax. No pneumothorax. Heart: The heart is moderately dilated. Mild coronary artery calcifications are seen. No evidence of right heart strain. No pericardial effusion. Aorta: Thoracic aorta non-dilated. No dissection. Upper abdomen: No acute findings. Bones: Old right rib fractures. Tubes, Catheters, and Lines: Endo gastric tube and nasogastric tubes are in appropriate position Soft tissues: Increased edema in the soft tissues, greater posteriorly. IMPRESSION: Question of small lower lobe pulmonary emboli. The exam is limited by artifact. No right heart strain. Findings suspicious for CHF. The preliminary [facility] report was reviewed. RADIATION DOSE DELIVERED: Total DLP DATA REPOSITORY: All CT scans at this facility are submitted to the National Radiology Data Registry (NRDR) Dose Index Registry (DIR) with the [employer] (ACR). RADIATION OPTIMIZATION: All CT scans at this facility use at least one of these dose optimization techniques: automated exposure control; mA and/or kV adjustment per patient size (includes targeted exams where dose is matched to clinical indication); or iterative reconstruction.
[2025-07-10 14:25] LABS: BE (Venous) 13 mmol/L (-2-3); HCO3 (Venous) 39 mmol/L (23-28); O2 Sat (Venous) 58 %; TCO2 (Venous) 37 mmol/L (24-29); pO2 (Venous) 34 mmHg
[2025-07-10 14:27] LABS: pCO2 (Venous) 73 mmHg (41-51)
[2025-07-10 14:43] LABS: Troponin I 16 ng/L (<35)
[2025-07-10] MEDS: Etomidate 20 MG/10 ML VIAL (14:53)
[2025-07-10] MEDS: Rocuronium 50 MG/5 ML SYR (14:54)
--- NOTE | 2025-07-10 15:00 | ED.PROG_ITS ---
Date of service: 07/10/25 Time of Service: 15:01 Medical Decision Making I was asked to consult on patient by the patient's primary caregiver here in the ED Jackelin, please refer to Jackelin's HPI, physical exam, assessment and plan. Abbreviated history, patient came from home, was found having fallen out of her wheelchair, was altered and somewhat confused upon arrival, blood work showed mild respiratory acidosis with hypercarbia, however review of labs show that this was not overly atypical for her however there definitely appear to be an acute component. During the patient's time here her mental status was slightly altered, we are pending head CT secondary to the initial fall. Patient was started on BiPAP however her mental status worsened while on BiPAP and she became more confused and obtunded. At time of requested input, patient was evaluated and noted to have a GCS of 8-9, however the patient definitely had no ability at this stage to remove the BiPAP mask if she was nauseous or vomiting. Due to the decline in mental status the decision was made to intubate. The inciting etiology for her metabolic encephalopathy remains the hypercarbia however it could be secondary to an intracranial etiology. Patient was not safe to lie flat while on the BiPAP secondary to a lack of significant gag reflex or ability to remove the BiPAP device. Decision was made to intubate, patient was intubated without complication. Prior to the second IV was placed by myself for definitive IV access. Patient's care will be continued by Jackelin Levy. Plan is to admit pending remaining imaging workup. Quality:SDOH Health Related Social Needs: 2 Health related social needs lonely/isolated Health related social needs details lives with mother with dementia, falls often, found unresponsive on the floor prior to admission, non ambulatory Procedure Airway Management Date of Procedure: 07/10/25 Time of Procedure: 15:05 Patient Consented: Emergent Case Indication: Apnea, Respiratory failure and Reduced level of consciousness Provider that performed the procedure: Alonso Garsia Mallampati Class: 3 Induction setup: Pt. evaluated prior to induction, Pt. Ramped, Head of Bed Elevated, Apneic Oxygenation, BiPAP/CPAP, Bag Valve Mask Ventilation and Delayed Sequence Induction Ultrasound: Not used Airway Type: Intubation Laryngoscopy: Atraumatic Laryngoscopy and Poor Dentition. Grade: Airway Grade: 2a. Airway Blades: Glidescope 3. Endotracheal Tube: Cuffed and 7.5mm. Secured at(cm): 23. Placement Confirmation: Cuff inflated with minimally occlusive pressure, Secured with commercial device, Bilateral breath sounds, ETCO2 waveform present and Depth to teeth EJ/Peripheral IV/Phlebotomy Date of Procedure: 07/10/25 Time of Procedure: 15:04 Indication: Nursing/tech could not get IV and Difficult IV access Laterality: Left Insertion Site: Antecubital Size & Type: 20 ga. Number ofAttempts(See previous attempts in note section): 1 Dressing: IV Dressing Placed and Tegaderm Applied Ultrasound: Used/Image Saved Estimated Blood Loss: minimal Reason for Blood Draw by Provider: RN/lab unable and MD to place line Procedure Tolerated: No Complications and Patient tolerated well Procedure Outcome: Successful Critical Care Time Critical Care Time Critical Care Time: Yes Total Critical Care Time: 30 Attestation: Upon my evaluation, this patient had a high probability of imminent or life- threatening deterioration, which required my direct attention, intervention, and personal management. I have personally provided 30 minutes of critical care time exclusive of time spent on separately billable procedures. Time includes review of laboratory data, radiology results, discussion with consultants, and monitoring for potential decompensation. Interventions were performed as documented. Discharge Plan Discharge Details Chief Complaint: SOB Primary Care Provider: Shahzad Olivarez ED Provider: Jackelin Martinez Home Meds and New Rx's Prescriptions: No Action lidocaine HCl [Lidocaine Viscous] 2 % solution 1 applic mucous membrane QID PRN (Reason: mouth sores) Qty: 100 2RF Rx Instructions: mix with equal parts mylanta and benadryl; swish and spit 5 ml of this mixture 4 x/day as needed Prolia 60 mg/mL syringe 60 mg subcut [id number] Qty: 1 1RF albuterol sulfate [Ventolin HFA] 90 mcg/actuation HFA aerosol inhaler 2 puff inhalation QID PRN (Reason: shortness of breath or wheezing) Qty: 8.5 1RF gabapentin 800 mg tablet 800 mg PO QID Qty: 120 5RF duloxetine 60 mg capsule,delayed release(DR/EC) 60 mg PO DAILY Qty: 90 3RF Patient Comments: as prescribed metoprolol succinate 25 mg tablet extended release 24 hr 12.5 mg PO DAILY Qty: 30 2RF aripiprazole [Abilify] 20 mg tablet 40 mg PO DAILY Qty: 180 4RF doxepin 100 mg capsule 200 mg PO QHS Qty: 180 3RF fenofibrate 54 mg tablet 54 mg PO DAILY Qty: 90 3RF simvastatin 20 mg tablet 20 mg PO DAILY Qty: 90 3RF diclofenac sodium 75 mg tablet,delayed release (DR/EC) 75 mg PO BID PRN (Reason: back pain) Qty: 180 3RF lidocaine 5 % adhesive patch,medicated 1 patch topical DAILY Qty: 30 5RF Rx Instructions: leave on most painful area for up to 12 hrs acetaminophen 500 mg capsule 1,000 mg PO TID PRN naloxone [Narcan] 4 mg/actuation spray,non-aerosol 4 mg intranasal Q2M PRN (Reason: opioid overdose) Qty: 2 0RF Patient Comments: i dont know Rx Instructions: spray 1 dose into ONE nostril; alternate nostrils w each dose until help arrives prednisone 20 mg tablet 40 mg PO DAILY Qty: 10 0RF methadone 10 mg tablet 10 mg PO Q12H MDD 2 tabs Qty: 14 0RF furosemide 20 mg tablet 40 mg PO DAILY Qty: 60 2RF Rx Instructions: take in early AM and 6 hours later.
[2025-07-10] MEDS: PROPOFOL 1,000 MG/100 ML BTL 16.5 MG IV_INF ×2 (15:10→23:28)
[2025-07-10] MEDS: Omnipaque 350 MG/ML 100 ML BTL IJ ×2 (15:32→21:30)
[2025-07-10] MEDS: Normal Saline - Diluent 50 ML VIAL IJ ×2 (15:33→21:30)
[2025-07-10 16:10] LABS: Glucose Negative (Negative)
--- NOTE | 2025-07-10 16:14 | DI.[facility]AD_ITS ---
PROCEDURE INFORMATION: Exam: XR Chest Exam date and time: 07/10/2025 3:05 PM Age: 64 years old Clinical indication: Other: Intubation, hypoxia TECHNIQUE: Imaging protocol: Radiologic exam of the chest. Views: 1 view. COMPARISON: CT CHEST PE CTA 07/05/2025 7:35 PM FINDINGS: Tubes, catheters and devices: Endotracheal tube in place. The tip is seen at the T4-5 level. Nasogastric tube in place. Lungs: The pulmonary vascularity appears redistributed. Minimal increased markings at the right lung base medially, presumed atelectasis. Pleural spaces: Unremarkable. No pleural effusion. No pneumothorax. Heart/Mediastinum: There is marked cardiomegaly. Bones/joints: Old right rib fractures. Lower lumbar surgical change noted. IMPRESSION: Endotracheal tube tip at the T4-5 level. Congestive heart failure noted. Dictated and Authenticated by: Marissa Thurston MD. Orderin Whit Benítez MD
[2025-07-10 16:15] LABS: WBC 0-2 HPF (0-5)
[2025-07-10 16:16] LABS: C & S Indicated? No; RBC 0-2 HPF (0-2)
[2025-07-10 16:25] LABS: Cannabinoids THC Negative (Negative)
--- NOTE | 2025-07-10 16:26 | DI.VRAD_ITS ---
Addendum created by Marissa Thurston MD on 07/10/2025 4:29:05 PM EST: I discussed case findings with FRANTZ FLORES 07/10/2025 4:27 PM EST. Initial report created on 07/10/2025 4:25:37 PM EST: PROCEDURE INFORMATION: Exam: CTA Chest With Contrast Exam date and time: 07/10/2025 3:45 PM Age: 64 years old Clinical indication: Other: SOB, o2 sat 60% on ra, h/o afib not on anticoag TECHNIQUE: Imaging protocol: Computed tomographic angiography of the chest with contrast. Exam focused on the arteries. 3D rendering (Not supervised by radiologist): MIP and/or 3D reconstructed images were created by the technologist. Contrast material: 350; Contrast volume: 100 ml; Contrast route: INTRAVENOUS (IV); COMPARISON: CT CHEST PE CTA 07/05/2025 7:35 PM FINDINGS: Tubes, catheters and devices: Endotracheal tube and nasogastric tube in place. Pulmonary arteries: There is a tiny right lower lobe pulmonary artery branch embolus. It is best appreciated on coronal series 8, image 67 and axial series 10, image 83. There may be a tiny more medial embolus image 86 of the right lung base. Aorta: Unremarkable. No aortic aneurysm. No aortic dissection. Thyroid: There is thyroid heterogeneity, probable multinodular goiter. Lungs: There is increased hazy airspace opacity and ground-glass change at both lung bases compared to previous study. Pleural spaces: Trace right pleural effusion. Heart: No change cardiomegaly. Heart RV/LV ratio: The RV to LV ratio is 4.89/4.35. This is 1.12, within normal limits. Lymph nodes: Unremarkable. No enlarged lymph nodes. Bones/joints: Multiple nonacute right rib fractures. Soft tissues: Unremarkable. IMPRESSION: 1. One or possibly 2 tiny right lower lobe pulmonary emboli. No evidence for right heart strain. 2. Increased ground-glass changes at the lung bases. Suspect congestive heart failure. Dictated and Authenticated by: Marissa Thurston MD. Orderin Whit Benítez MD
--- NOTE | 2025-07-10 16:30 | DI.VRAD_ITS ---
PROCEDURE INFORMATION: Exam: CT Head Without Contrast Exam date and time: 07/10/2025 3:42 PM Age: 64 years old Clinical indication: Other: AMS, S/P unwitnessed fall, intubated; Other: AMS, S/P unwitnessed fall, intubation TECHNIQUE: Imaging protocol: Computed tomography of the head without contrast. COMPARISON: CT HEAD WO 06/09/2025 9:50 PM FINDINGS: Brain: No acute intracranial hemorrhage.. Prominent subdural spaces anterior to the frontal lobes may represent atrophy or chronic subdural hematomas.. There is mild diffuse heterogeneity of the white matter attenuation, consistent with chronic white matter ischemic changes. Mild cerebral atrophy Cerebral ventricles: No ventriculomegaly. Paranasal sinuses: Opacities in the ethmoid sinuses and nasal cavities may represent sinusitis Mastoid air cells: Visualized mastoid air cells are well aerated. Bones: Unremarkable. No acute fracture. Soft tissues: Unremarkable. IMPRESSION: 1. No acute intracranial hemorrhage.. 2. Prominent subdural spaces anterior to the frontal lobes may represent atrophy or chronic subdural hematomas.. PROCEDURE INFORMATION: Exam: CT Cervical Spine Without Contrast Exam date and time: 07/10/2025 3:42 PM Age: 64 years old Clinical indication: Other: AMS, S/P unwitnessed fall, intubated; Other: AMS, S/P unwitnessed fall, intubation TECHNIQUE: Imaging protocol: Computed tomography of the cervical spine without contrast. COMPARISON: CT HEAD CERVICAL SPINE WO 05/18/2025 3:58 PM FINDINGS: Tubes, catheters and devices: Endotracheal tube and enteric tubes are identified Bones: No acute fracture of the cervical spine. No subluxation or dislocation of the cervical spine. Intervertebral disc space narrowing C4 through C7 may represent degenerative disc disease.. Anterior osteophyte formation C4 through C7. Posterior osteophyte formation C4 through C7. Degenerative changes in the facets at multiple levels. Degenerative changes at C1/C2. Degenerative changes in the temporomandibular joints Lungs: Lung apices are normal. Thyroid: The thyroid is heterogeneous Soft tissues: Unremarkable. IMPRESSION: 1. No acute fracture of the cervical spine. 2. No subluxation or dislocation of the cervical spine. 3. Intervertebral disc space narrowing C4 through C7 may represent degenerative disc disease.. Dictated and Authenticated by: Leyla aJmes MD. Orderin Whit Benítez MD
[2025-07-10] MEDS: fentaNYL 100 MCG/2 ML VIAL IVP (16:51)
[2025-07-10] MEDS: fentaNYL 1,000 MCG in Normal Saline 80 ML 11 MCG IV_INF (17:26)
--- NOTE | 2025-07-10 18:45 | DI.CT_ITS ---
Exam(s) CT HEAD WO CT BRAIN NECK CTA EXAM: CT BRAIN NECK CTA CLINICAL HISTORY: blown pupil, new neuro change. TECHNIQUE: Imaging Protocol: Axial CT angiography was performed with multi- slice acquisition and multi-planar and MIP reconstructions. CONTRAST MATERIAL: Intravenous: Omnipaque 350 Contrast volume:100 ml COMPARISON: CT CT HEAD CERVICAL SPINE WO from 07/10/2025 FINDINGS: CT Head W/O and W contrast: Ventricles and Extra axial spaces: Normal in size and morphology for the patient's age. Hemorrhage: None. Cerebral parenchyma: No evidence of acute infarct or mass. Frontal temporal atrophy again noted. Midline shift: None. Brainstem/Cerebellum: No acute findings.. Calvarium: Normal. Visualized Paranasal sinuses/Mastoids: Mild mucous retention at the floor of the left maxillary sinus. Soft Tissues: Posterior sebaceous cyst again noted. Enhancement: Normal. Venous sinuses are patent. CTA Brain W: Internal Carotid Arteries: Right: No aneurysm, occlusion or significant stenosis. Left: No aneurysm, occlusion or significant stenosis. Middle Cerebral Arteries: Right: No aneurysm, occlusion or significant stenosis. Left: No aneurysm, occlusion or significant stenosis. Anterior Cerebral Arteries: Right: No aneurysm, occlusion or significant stenosis. Left: No aneurysm, occlusion or significant stenosis. Posterior cerebral Arteries: Right: No aneurysm, occlusion or significant stenosis. Left: No aneurysm, occlusion or significant stenosis. Vertebral Arteries: Right: No aneurysm, occlusion or significant stenosis. Left: No aneurysm, occlusion or significant stenosis. Basilar Artery: No aneurysm, occlusion or significant stenosis. CTA Neck W: Visualized aorta: Unremarkable. Visualized pulmonary arteries: Unremarkable. Subclavian arteries: Unremarkable. Common Carotid: Right: Mild calcific plaque. No dissection, occlusion or significant stenosis. Left: Minimal calcific plaque. No dissection, occlusion or significant stenosis. External Carotid: Right: No dissection, occlusion or significant stenosis. Left: No dissection, occlusion or significant stenosis. Internal Carotid: Right: No dissection, occlusion or significant stenosis. Left: No dissection, occlusion or significant stenosis. Vertebral Artery: Right: No dissection, occlusion or significant stenosis. Left: No dissection, occlusion or significant stenosis. Lung Apices: Interlobular septal thickening consistent with pulmonary edema. No focal consolidation. Mild emphysematous changes. An endotracheal tube and orogastric tube are noted. Bones: No acute abnormality. Soft Tissues: Heterogeneous thyroid. No dominant thyroid nodule. IMPRESSION: 1. CTA brain: Normal CTA examination of the [place]. 2. Head CT: No acute abnormality. 3. CTA neck: No evidence of occlusion, significant stenosis or dissection. The preliminary [facility] report was reviewed. RADIATION DOSE DELIVERED: Total DLP DATA REPOSITORY: All CT scans at this facility are submitted to the National Radiology Data Registry (NRDR) Dose Index Registry (DIR) with the [employer] (ACR). RADIATION OPTIMIZATION: All CT scans at this facility use at least one of these dose optimization techniques: automated exposure control; mA and/or kV adjustment per patient size (includes targeted exams where dose is matched to clinical indication); or iterative reconstruction.
--- NOTE | 2025-07-10 19:15 | DI.CT_ITS ---
Exam(s) CT HEAD WO CT BRAIN NECK CTA EXAM: CT BRAIN NECK CTA CLINICAL HISTORY: blown pupil, new neuro change. TECHNIQUE: Imaging Protocol: Axial CT angiography was performed with multi- slice acquisition and multi-planar and MIP reconstructions. CONTRAST MATERIAL: Intravenous: Omnipaque 350 Contrast volume:100 ml COMPARISON: CT CT HEAD CERVICAL SPINE WO from 07/10/2025 FINDINGS: CT Head W/O and W contrast: Ventricles and Extra axial spaces: Normal in size and morphology for the patient's age. Hemorrhage: None. Cerebral parenchyma: No evidence of acute infarct or mass. Frontal temporal atrophy again noted. Midline shift: None. Brainstem/Cerebellum: No acute findings.. Calvarium: Normal. Visualized Paranasal sinuses/Mastoids: Mild mucous retention at the floor of the left maxillary sinus. Soft Tissues: Posterior sebaceous cyst again noted. Enhancement: Normal. Venous sinuses are patent. CTA Brain W: Internal Carotid Arteries: Right: No aneurysm, occlusion or significant stenosis. Left: No aneurysm, occlusion or significant stenosis. Middle Cerebral Arteries: Right: No aneurysm, occlusion or significant stenosis. Left: No aneurysm, occlusion or significant stenosis. Anterior Cerebral Arteries: Right: No aneurysm, occlusion or significant stenosis. Left: No aneurysm, occlusion or significant stenosis. Posterior cerebral Arteries: Right: No aneurysm, occlusion or significant stenosis. Left: No aneurysm, occlusion or significant stenosis. Vertebral Arteries: Right: No aneurysm, occlusion or significant stenosis. Left: No aneurysm, occlusion or significant stenosis. Basilar Artery: No aneurysm, occlusion or significant stenosis. CTA Neck W: Visualized aorta: Unremarkable. Visualized pulmonary arteries: Unremarkable. Subclavian arteries: Unremarkable. Common Carotid: Right: Mild calcific plaque. No dissection, occlusion or significant stenosis. Left: Minimal calcific plaque. No dissection, occlusion or significant stenosis. External Carotid: Right: No dissection, occlusion or significant stenosis. Left: No dissection, occlusion or significant stenosis. Internal Carotid: Right: No dissection, occlusion or significant stenosis. Left: No dissection, occlusion or significant stenosis. Vertebral Artery: Right: No dissection, occlusion or significant stenosis. Left: No dissection, occlusion or significant stenosis. Lung Apices: Interlobular septal thickening consistent with pulmonary edema. No focal consolidation. Mild emphysematous changes. An endotracheal tube and orogastric tube are noted. Bones: No acute abnormality. Soft Tissues: Heterogeneous thyroid. No dominant thyroid nodule. IMPRESSION: 1. CTA brain: Normal CTA examination of the [place]. 2. Head CT: No acute abnormality. 3. CTA neck: No evidence of occlusion, significant stenosis or dissection. The preliminary [facility] report was reviewed. RADIATION DOSE DELIVERED: Total DLP DATA REPOSITORY: All CT scans at this facility are submitted to the National Radiology Data Registry (NRDR) Dose Index Registry (DIR) with the [employer] (ACR). RADIATION OPTIMIZATION: All CT scans at this facility use at least one of these dose optimization techniques: automated exposure control; mA and/or kV adjustment per patient size (includes targeted exams where dose is matched to clinical indication); or iterative reconstruction.
--- NOTE | 2025-07-10 19:19 | DI.[facility]AD_ITS ---
PROCEDURE INFORMATION: Exam: CT Head Without Contrast Exam date and time: 07/10/2025 7:02 PM Age: 64 years old Clinical indication: Stroke-like symptoms; Other: Unequal pupils- new change TECHNIQUE: Imaging protocol: Computed tomography of the head without contrast. Other technique: STROKE PROTOCOL was implemented. COMPARISON: CT HEAD CERVICAL SPINE WO 07/10/2025 3:42 PM FINDINGS: Tubes, catheters and devices: Endotracheal tube and orogastric tube in place. Brain: Mild cortical volume loss. No hemorrhage. Unremarkable white matter. No mass effect. Cerebral ventricles: No ventriculomegaly. Paranasal sinuses: Visualized sinuses are unremarkable. No fluid levels. Mastoid air cells: Visualized mastoid air cells are well aerated. Bones: Unremarkable. No acute fracture. Soft tissues: Hyperdense right scalp lesion at the occipital level, probable sebaceous cyst. IMPRESSION: No evidence for acute intracranial abnormality. MRI assessment is more sensitive to characterize in the setting of acute stroke if patient MRI compatible. ASSESSMENT: ASPECTS ([place] Stroke Program Early CT Score) is 10. Dictated and Authenticated by: Marissa Thurston MD. Orderin Whit Benítez MD
[2025-07-10] MEDS: Propofol 200 MG/20 ML VIAL 20 MG IVP ×4 (19:31→20:35)
[2025-07-10] MEDS: PROPOFOL 1,000 MG/100 ML BTL 39.6 MG IV_INF (20:07)
[2025-07-10] MEDS: fentaNYL 100 MCG/2 ML VIAL 50 MCG IVP ×2 (20:28→20:35)
--- NOTE | 2025-07-10 20:46 | DI.VRAD_ITS ---
PROCEDURE INFORMATION: Exam: XR Chest Exam date and time: 07/10/2025 8:39 PM Age: 64 years old Clinical indication: Other: Subclavian line placement TECHNIQUE: Imaging protocol: Radiologic exam of the chest. Views: 1 view. COMPARISON: CT CHEST PE CTA 07/10/2025 3:45 PM FINDINGS: Tubes, catheters and devices: There is a left-sided central line catheter in place with the tip seen at the distal SVC. Endotracheal tube tip at the T4 level. Nasogastric tube again identified. Lungs: Pulmonary vascularity remains redistributed. There is some increased airspace markings at the lung bases, presumed atelectasis. Pleural spaces: Unremarkable. No pleural effusion. No pneumothorax. Heart/Mediastinum: No change cardiomegaly. Bones/joints: Unremarkable. IMPRESSION: No pneumothorax after line placement. Dictated and Authenticated by: Marissa Thurston MD. Orderin Whit Benítez MD
[2025-07-10] MEDS: fentaNYL 1,000 MCG in Normal Saline 80 ML 22 MCG IV_INF (20:48)
[2025-07-10] MEDS: Furosemide 40 MG/4 ML VIAL IVP (20:50)
--- NOTE | 2025-07-10 21:17 | DI.RAD_ITS ---
Exam(s) XR PORTABLE CHEST AP POST LINE EXAM: XR PORTABLE CHEST AP POST LINE CLINICAL HISTORY: New L IJ placement TECHNIQUE: 2D digital imaging was performed. COMPARISON: CT CT CHEST PE CTA from 07/10/2025 CR,XR XR PORTABLE CHEST AP from 07/10/2025 FINDINGS: A central line is been inserted with the tip in the lower SVC. The nasogastric tube and endotracheal tube positions are unchanged. LUNGS: Pulmonary vascular prominence and increased bilateral pulmonary markings suspicious for CHF. HEART: Enlarged, unchanged. AORTA: Normal diameter. BONES: Unremarkable for age. Soft tissues: Unremarkable. IMPRESSION: Satisfactory placement of central line. The preliminary [facility] report was reviewed. DATA REPOSITORY: RADIATION DOSE DELIVERED:
--- NOTE | 2025-07-10 22:33 | DI.RAD_ITS ---
Exam(s) XR PORTABLE CHEST AP POST LINE EXAM: XR PORTABLE CHEST AP POST LINE CLINICAL HISTORY: R subclavian placement TECHNIQUE: 2D digital imaging was performed. COMPARISON: CR,XR XR PORTABLE CHEST AP POST LINE from 07/10/2025 FINDINGS: A 2nd central line has now been placed via the right subclavian. The tip lies in the upper SVC. Previously noted left-sided central line is unchanged. The endotracheal tube and nasogastric tubes are also appear unchanged in position. LUNGS: No evidence of pneumothorax. Vascular prominence increase markings suspicious for CHF. HEART: Enlarged, unchanged. AORTA: Normal diameter. BONES: Unremarkable for age. Soft tissues: Unremarkable. IMPRESSION: Status post placement of right-sided subclavian central line. No pneumothorax. Other findings are stable. The preliminary [facility] report was reviewed. DATA REPOSITORY: RADIATION DOSE DELIVERED:
--- NOTE | 2025-07-10 22:41 | DI.[facility]AD_ITS ---
PROCEDURE INFORMATION: Exam: XR Chest Exam date and time: 07/10/2025 10:29 PM Age: 64 years old Clinical indication: Other: Subclav line placement TECHNIQUE: Imaging protocol: Radiologic exam of the chest. Views: 1 view. COMPARISON: CR XR LINE PLACEMENT PICC/CVA 07/10/2025 8:39 PM FINDINGS: Tubes, catheters and devices: The patient is intubated and the endotracheal tube is 3.1 cm above the parveen. There is a right subclavian central venous catheter, the distal tip of which is projected over the confluence of the brachiocephalic veins. There is a left central venous catheter, the tip of which is projected over the cavoatrial junction. An NG tube is present in the distal tip is not visualized on the inferior margins of the study. Lungs: Diffuse patchy interstitial pulmonary radiopacities are redemonstrated and appear unchanged from the previous study. Pleural spaces: There may be a left pleural effusion. No pneumothorax. Heart/Mediastinum: The heart is normal size. Bones/joints: Unremarkable. IMPRESSION: 1. Tubes and lines as above. 2. Diffuse patchy interstitial radiopacities. Differential considerations include pulmonary edema, ARDS, and multifocal pneumonia. Dictated and Authenticated by: Cris Kerns MD. Orderin Whit Benítez MD
--- NOTE | 2025-07-10 22:54 | W.ED.PROC ---
Date of service: 07/10/25 Time of Service: 20:10 Procedures Central Line Placement Left IJ: Time Out Performed: Yes Patient Placed on Monitor/Pulse Ox: Yes MD Prep: mask, gown and gloves Central Line Prep: Chlorhexidine scrub Ultrasound Used for Placement: Yes Central Line Lumen Inserted: triple Post Procedure: good blood return, all ports aspirated, flushed, capped and sutured in place with 2-0 silk Post Procedure X-Ray: tip of catheter in good position Patient Tolerated Procedure: well Complications: none Additional Comments: Indication: Central line was placed due to paucity of peripheral IV sites. Right SC: Time Out Performed: Yes Patient Placed on Monitor/Pulse Ox: Yes Central Line Prep: Chlorhexidine scrub Ultrasound Used for Placement: Yes Central Line Lumen Inserted: triple Post Procedure: good blood return, all ports aspirated, flushed, capped and sutured in place with 2-0 silk Post Procedure X-Ray: tip of catheter in good position Complications: none Additional Comments: Indication: Was advised by diagnostic imaging that IJ lines are not acceptable for CTA bolus as per hospital guidelines. Medical Decision Making Quality:SDOH Health Related Social Needs: Health related social needs lonely/isolated Health related social needs details lives with mother with dementia, falls often, found unresponsive on the floor prior to admission, non ambulatory
--- NOTE | 2025-07-10 23:09 | DI.VRAD_ITS ---
PROCEDURE INFORMATION: Exam: CTA Head Without And With Contrast, Arteriography Exam date and time: 07/10/2025 7:40 PM Age: 64 years old Clinical indication: Other: Blown pupil, new neuro change TECHNIQUE: Imaging protocol: Computed tomographic angiography of the head without and with contrast. Exam focused on the arteries. 3D rendering (Not supervised by radiologist): MIP and/or 3D reconstructed images were created by the technologist. Contrast material: 350; Contrast volume: 70 ml; Contrast route: INTRAVENOUS (IV); COMPARISON: CT HEAD WO 07/10/2025 7:02 PM FINDINGS: ANTERIOR CIRCULATION: Right internal carotid artery: Intracranial segment is patent with no significant stenosis or occlusion. No aneurysm. Right middle cerebral artery: No occlusion or significant stenosis. No aneurysm. Right anterior cerebral artery: No occlusion or significant stenosis. No aneurysm. Left internal carotid artery: Intracranial segment is patent with no significant stenosis. No aneurysm. Left middle cerebral artery: No occlusion or significant stenosis. No aneurysm. Left anterior cerebral artery: No occlusion or significant stenosis. No aneurysm. POSTERIOR CIRCULATION: Right vertebral artery: No occlusion or significant stenosis. No aneurysm. Left vertebral artery: No occlusion or significant stenosis. No aneurysm. Basilar artery: No occlusion or significant stenosis. No aneurysm. Right posterior cerebral artery: No occlusion or significant stenosis. No aneurysm. Left posterior cerebral artery: No occlusion or significant stenosis. No aneurysm. HEAD: Brain: No acute intracranial hemorrhage or mass lesions. No midline shift. Normal grace-white differentiation. Cerebral ventricles: Normal. No ventriculomegaly. Bones: Unremarkable. No acute fracture. Paranasal sinuses: Visualized sinuses are normal. No fluid levels. Mastoid air cells: Visualized mastoids are normal. No mastoid effusion. Soft tissues: Unremarkable. IMPRESSION: 1. No stenosis, occlusion, or aneurysm. 2. No acute intracranial findings. PROCEDURE INFORMATION: Exam: CTA Neck Without And With Contrast Exam date and time: 07/10/2025 7:40 PM Age: 64 years old Clinical indication: Other: Blown pupil, new neuro change TECHNIQUE: Imaging protocol: Computed tomographic angiography of the neck without and with contrast. Exam focused on the cervical segments of the vasculature. 3D rendering (Not supervised by radiologist): MIP and/or 3D reconstructed images were created by the technologist. Contrast material: 350; Contrast volume: 70 ml; Contrast route: INTRAVENOUS (IV); COMPARISON: CT HEAD CERVICAL SPINE WO 07/10/2025 3:42 PM FINDINGS: Tubes, catheters and devices: The patient is intubated and the endotracheal tube is a proximally 2.6 cm above the parveen. An NG tube is visualized within the esophagus. Right common carotid artery: No stenosis. No dissection or occlusion. Right internal carotid artery: Moderate atheromatous calcifications are present at the right carotid bulb. Right external carotid artery: No occlusion or stenosis of the origin. Left common carotid artery: No stenosis. No dissection or occlusion. Left internal carotid artery: Mild atheromatous calcifications are present at the left carotid bulb. Left external carotid artery: No occlusion or stenosis of the origin. Right vertebral artery: No stenosis. No dissection or occlusion. Left vertebral artery: No stenosis. No dissection or occlusion. Thyroid: Multiple subcentimeter nodules are present within the thyroid. Soft tissues: Normal. No significant soft tissue swelling. Bones/joints: No acute fracture. IMPRESSION: 1. No stenosis, occlusion, or aneurysm. 2. Heterogeneous thyroid. If further characterization is warranted, thyroid ultrasound could be used. REFERENCES: NASCET CRITERIA. The degree of stenosis in the cervical segment of the internal carotid artery is based on NASCET criteria. Normal is no stenosis. Mild is less than 50% stenosis. Moderate is 50-69% stenosis. Severe is 70% to 99% stenosis. Total occlusion is no detectable patent lumen. Dictated and Authenticated by: Cris Kerns MD. Orderin Whit Benítez MD
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
[2025-07-11] VITALS (91 sets, daily range): BP systolic 77–152; BP diastolic 54–101; PULSE 42–76; RESP 11–28; TEMP 36.7–37; O2SAT 79–97
--- NOTE | 2025-07-11 01:29 | W.ED.PROC ---
Date of service: 07/11/25 Time of Service: 01:29 Procedures Other Description: Asked to obtain ocular pressure readings on this patient with anisocoria. Patient is sedated and intubated in the ICU. Using the ICare 2000 tonometer patient was found to have a pressure of 6 in the right eye with the dilated pupil and 7 in the left eye with very small pupil. I informed Dr. Loving of the results. Medical Decision Making Quality:SDOH Health Related Social Needs: Health related social needs lonely/isolated Health related social needs details lives with mother with dementia, falls often, found unresponsive on the floor prior to admission, non ambulatory
[2025-07-11] MEDS: methylPREDNISolone SUCC 40 MG VIAL 20 MG IVP ×2 (01:30→12:28)
[2025-07-11 02:22] LABS: PTT Activated 23.4 sec (20.6-30.2)
[2025-07-11] MEDS: cefTRIAXone 1 GM/50 ML BAG IVPB (02:45)
[2025-07-11] MEDS: Heparin in 0.45% NaCl 25,000 UNIT/250 ML BAG 18 UNIT IVINF (02:48)
[2025-07-11 03:11] LABS: Iron 15 ug/dL (50-170); Total Iron Binding Capacity 355 ug/dL (250-425); Transferrin Sat 4 % (15-50)
[2025-07-11 03:13] LABS: Folate 9.7 ng/mL (>5.38); Vitamin B12 310 pg/mL (211-911)
[2025-07-11] MEDS: IRON SUCROSE COMPLEX 400 MG in Normal Saline 250 ML 100 MG IVPB (04:33)
[2025-07-11] MEDS: PROPOFOL 1,000 MG/100 ML BTL 16.5 MG IV_INF (05:02)
--- NOTE | 2025-07-11 05:12 | W.PC.ACHO ---
Registration Status: ADM IN Primary Language: Preferred Language: Tajik ED Information & Data Chief Complaint SOB 07/10/25 12:02 Chief Complaint SOB 07/10/25 11:48 Other Complaint AMS/LOC 07/10/25 11:48 Triage Note Pt reports that she slipped 07/10/25 11:48 out of her wheelchair this morning- called EMS for a lift assist- EMS found her on the floor, lethargic with oxygen in the 60s- supposed to be on home oxygen but not using it- pt alert/ oriented but very sleepy on arrival Medical / Surgical History (Last Updated 07/06/25 @ 08:24 by Lex Montes MD) Elevated d-dimer Chronic atrial fibrillation Tobacco use disorder Pulmonary nodule Acute hypercapnic respiratory failure Displaced trimalleolar fracture of right ankle Gastric ulcer (08/18/05) Depression (07/18/05) Gastroparesis (07/18/05) Morbid obesity Chronic right-sided lumbar radiculopathy Osteoporosis Type 2 diabetes mellitus Essential hypertension History of fractured rib COPD (chronic obstructive pulmonary disease) (Last Reviewed 05/18/25 @ 18:45 by Rom Carrillo) History of ankle surgery History of back surgery (10/17/17) ULCER/STOMACH SURGERY Replacement of total knee joint (04/17/17) Total replacement of hip KNEE SURGERY EGD - MAC Cholecystectomy (~06/2013) Most Recent Vital Signs Temperature 37 C 07/11/25 00:11 Temperature Source Temporal Artery Scan 07/10/25 12:02 Pulse 56 L 07/11/25 00:11 Pulse 56 L 07/11/25 03:02 Respiratory Rate 16 07/11/25 03:02 Respiratory Effort Short of Breath, Labored, Nasal Flaring 07/10/25 13:41 Respiratory Depth Shallow 07/10/25 13:41 Blood Pressure 112/67 07/11/25 00:11 Blood Pressure Mean 77 07/11/25 00:05 Blood Pressure Position Supine 07/10/25 12:02 Pulse Oximetry 94 07/11/25 03:02 Respiratory End-tidal CO2 48 07/11/25 03:02 Oxygen Delivery Method Mechanical Ventilator 07/10/25 23:56 Oxygen Flow Rate 0 07/10/25 23:56 Fraction of Inspired Oxygen (FIO2) 25 07/11/25 03:02 Pain Level 0 07/11/25 00:11 Allergies No Known Drug Allergies Allergy (Unknown, Verified 07/05/25 17:03) none Precautions Isolation Standard precaution 07/10/25 12:02 Active Medications Generic Name Dose Route Start Last Admin Trade Name Peggy PRN Reason Stop Dose Admin Propofol 1,000 mg in 100 mls @ 0 mls/hr 07/10/25 17:00 07/11/25 05:02 Diprivan IV_INF 16.5 mls/hr INFUSION TAINA 16.5 mls/hr Protocol Administration Per Protocol Fentanyl 1,000 mcg/ Sodium 100 mls @ 0 mls/hr 07/10/25 17:15 07/10/25 22:23 Chloride IV_INF 11 mls/hr INFUSION TAINA 11 mls/hr Protocol Titration Titrate Heparin Sodium/Sodium Chloride 25,000 unit in 250 mls @ 0 mls/hr 07/10/25 22:00 07/11/25 02:48 IVINF 16.41 units/kg/hr INFUSION TAINA 18 mls/hr Protocol Administration Per Protocol Ceftriaxone Sodium/Dextrose 1 gm in 50 mls @ 100 mls/hr 07/11/25 02:00 07/11/25 03:25 Rocephin IVPB Infused HS TAINA Infusion Iohexol 100 ml 07/10/25 15:45 07/10/25 21:30 Omnipaque 350 Mg/Ml 100 Ml Btl IJ 08/09/25 23:59 70 ml DIRECTED TAINA Administration Methylprednisolone Sodium Succinate 20 mg 07/11/25 00:00 07/11/25 01:30 Methylprednisolone Succ 40 Mg Vial IVP 20 mg Q12H TAINA Administration Propofol 20 mg 07/10/25 21:54 07/10/25 20:35 Propofol 200 Mg/20 Ml Vial IVP 20 mg DIRECTED PRN Administration Agitation Sodium Chloride 50 ml 07/10/25 15:45 07/10/25 21:30 Normal Saline - Diluent 50 Ml Vial IJ 50 ml DIRECTED TAINA Administration IV IV Catheter Type [Right Triple Lumen Subclavian Subclavian] IV Catheter Type [Left Triple Lumen Subclavian Internal Jugular] IV Catheter Type [Left Peripheral IV Antecubital] IV Catheter Gauge [Right 7 Subclavian] IV Catheter Gauge [Left 7 Internal Jugular] IV Catheter Gauge [Left 20 Antecubital] Diet Orders Category Date Time Status Nothing Per Oral [DIET] Nutrition 07/10/25 23:34 Active Diagnostics 07/11/25 07/11/25 07/11/25 Range/Units 05:35 02:35 01:50 WBC Pending (4.4-10.8) 10^3/uL RBC Pending (3.93-5.22) 10^6/uL Hgb Pending (11.2-15.7) g/dL Hct Pending (36.0-46.0) % MCV Pending (80-95) fL MCH Pending (27.0-33.0) pg MCHC Pending (32.0-36.0) % RDW Pending (11.7-14.6) % Plt Count Pending (130-400) 10^3/uL MPV Pending (8.0-11.0) fL Immature Gran % Pending % Neutrophils % Pending % Lymphocytes % Pending % Monocytes % Pending % Eosinophils % Pending % Basophils % Pending % Nucleated RBC % (0.0-0.3) % Absolute Neutrophils Pending (1.2-6.7) 10^3/uL Absolute Lymphocytes Pending (1.2-3.4) 10^3/uL Absolute Monocytes Pending (0.1-0.8) 10^3/uL Absolute Eosinophils Pending (0.0-0.7) 10^3/uL Absolute Basophils Pending (0.0-0.2) 10^3/uL RBC Morphology Hypochromasia Poikilocytosis Anisocytosis APTT 23.4 (20.6-30.2) sec D-Dimer (<500) ng/mlFEU ABG Sample Site Pending ABG pH Pending ABG pCO2 Pending ABG pO2 Pending ABG HCO3 Pending ABG Total CO2 Pending ABG O2 Saturation Pending ABG Base Excess Pending VBG pH (7.31-7.41) VBG pCO2 (41-51) mmHg VBG pO2 mmHg VBG HCO3 (23-28) mmol/L VBG Total CO2 (24-29) mmol/L VBG O2 Saturation % VBG Base Excess (-2-3) mmol/L VBG Lactate (<or=2.0) mmol/L Sodium Pending (136-145) mmol/L Potassium Pending (3.5-5.1) mmol/L Chloride Pending (98-107) mmol/L Carbon Dioxide Pending (20.0-31.0) mmol/L Anion Gap Pending (3-11) mmol/L BUN Pending (9-23) mg/dL Creatinine Pending (0.55-1.02) mg/dL Est GFR (CKD-EPI 2020) Pending (mL/min/1.73m2) Glucose Pending (74-106) mg/dL Calcium Pending (8.3-10.6) mg/dL Iron 15 L (50-170) ug/dL TIBC 355 (250-425) ug/dL Transferrin % Sat 4 L (15-50) % Total Bilirubin Pending (0.2-1.2) mg/dL AST Pending (<34) U/L ALT Pending (10-49) U/L Alkaline Phosphatase Pending (46-116) U/L Troponin I (<35) ng/L NT-Pro-B Natriuret Pep (<300) pg/mL Total Protein Pending (5.7-8.2) g/dL Albumin Pending (3.4-5.0) g/dL Vitamin B12 310 (211-911) pg/mL Folate 9.7 (>5.38) ng/mL TSH Pending (0.55-4.78) uIU/mL Urine Color (Yellow) Urine Clarity (Clear) Urine pH (5-8) Ur Specific Bowen (1.005-1.025) Urine Protein (Neg-Trace) mg/dL Urine Ketones (Negative) mg/dL Urine Blood (Negative) Urine Nitrite (Negative) Urine Bilirubin (Negative) Urine Urobilinogen (Up to 0.2) mg/dL Ur Leukocyte Esterase (Negative) Urine RBC (0-2) HPF Urine WBC (0-5) HPF Ur Epithelial Cells (Negative) HPF Urine Crystals (Negative) HPF Urine Bacteria (Negative) HPF Urine Casts (Negative) LPF Urine Mucus (Negative) Ur Culture Indicated? Urine Glucose (Negative) mg/dL Urine Opiates Screen (Negative) Urine Methadone Screen (Negative) Ur Barbiturates Screen (Negative) Ur Tricyclics Screen (Negative) Ur Amphetamines Screen (Negative) U Benzodiazepines Scrn (Negative) Urine Cocaine Screen (Negative) U Cannabinoids Screen (Negative) COVID-19 Source SARS-CoV-2 (PCR) (Negative) Influenza Type A (PCR) (Negative) Influenza Type B (PCR) (Negative) RSV (PCR) (Negative) 07/10/25 07/10/25 07/10/25 Range/Units 14:10 14:00 13:10 WBC 7.01 (4.4-10.8) 10^3/uL RBC 4.86 (3.93-5.22) 10^6/uL Hgb 9.3 L (11.2-15.7) g/dL Hct 38.7 (36.0-46.0) % MCV 80 D (80-95) fL MCH 19.1 L (27.0-33.0) pg MCHC 24.0 L (32.0-36.0) % RDW 21.6 H (11.7-14.6) % Plt Count 340 (130-400) 10^3/uL MPV 8.9 (8.0-11.0) fL Immature Gran % 0.6 % Neutrophils % 71.9 % Lymphocytes % 13.6 % Monocytes % 6.7 % Eosinophils % 6.3 % Basophils % 0.9 % Nucleated RBC % 0.0 (0.0-0.3) % Absolute Neutrophils 5.05 (1.2-6.7) 10^3/uL Absolute Lymphocytes 0.95 L (1.2-3.4) 10^3/uL Absolute Monocytes 0.47 (0.1-0.8) 10^3/uL Absolute Eosinophils 0.44 (0.0-0.7) 10^3/uL Absolute Basophils 0.06 (0.0-0.2) 10^3/uL RBC Morphology See Below Hypochromasia 2+ Poikilocytosis 2+ Anisocytosis 2+ APTT (20.6-30.2) sec D-Dimer 775 H (<500) ng/mlFEU ABG Sample Site ABG pH ABG pCO2 ABG pO2 ABG HCO3 ABG Total CO2 ABG O2 Saturation ABG Base Excess VBG pH 7.33 7.30 L (7.31-7.41) VBG pCO2 73 H* 77 H* (41-51) mmHg VBG pO2 34 49 mmHg VBG HCO3 39 H 38 H (23-28) mmol/L VBG Total CO2 37 H 36 H (24-29) mmol/L VBG O2 Saturation 58 79 % VBG Base Excess 13 H 11 H (-2-3) mmol/L VBG Lactate 1.0 (<or=2.0) mmol/L Sodium 142 (136-145) mmol/L Potassium 3.8 (3.5-5.1) mmol/L Chloride 99 (98-107) mmol/L Carbon Dioxide 38.3 H (20.0-31.0) mmol/L Anion Gap 5 (3-11) mmol/L BUN 7 L (9-23) mg/dL Creatinine 0.56 (0.55-1.02) mg/dL Est GFR (CKD-EPI 2020) 109.40 (mL/min/1.73m2) Glucose 98 (74-106) mg/dL Calcium 9.1 (8.3-10.6) mg/dL Iron (50-170) ug/dL TIBC (250-425) ug/dL Transferrin % Sat (15-50) % Total Bilirubin 0.30 (0.2-1.2) mg/dL AST 15 (<34) U/L ALT 11 (10-49) U/L Alkaline Phosphatase 105 (46-116) U/L Troponin I 16 16 (<35) ng/L NT-Pro-B Natriuret Pep 5272 H (<300) pg/mL Total Protein 6.6 (5.7-8.2) g/dL Albumin 4.0 (3.4-5.0) g/dL Vitamin B12 (211-911) pg/mL Folate (>5.38) ng/mL TSH 1.78 (0.55-4.78) uIU/mL Urine Color Yellow (Yellow) Urine Clarity Clear (Clear) Urine pH 6.5 (5-8) Ur Specific Bowen 1.020 (1.005-1.025) Urine Protein 30 H (Neg-Trace) mg/dL Urine Ketones Trace H (Negative) mg/dL Urine Blood Negative (Negative) Urine Nitrite Negative (Negative) Urine Bilirubin Small H (Negative) Urine Urobilinogen 1.0 H (Up to 0.2) mg/dL Ur Leukocyte Esterase Negative (Negative) Urine RBC 0-2 (0-2) HPF Urine WBC 0-2 (0-5) HPF Ur Epithelial Cells Rare (Negative) HPF Urine Crystals Negative (Negative) HPF Urine Bacteria Rare (Negative) HPF Urine Casts 3-5 Hyaline (Negative) LPF Urine Mucus Heavy (Negative) Ur Culture Indicated? No Urine Glucose Negative (Negative) mg/dL Urine Opiates Screen Negative (Negative) Urine Methadone Screen Positive A (Negative) Ur Barbiturates Screen Negative (Negative) Ur Tricyclics Screen Positive A (Negative) Ur Amphetamines Screen Negative (Negative) U Benzodiazepines Scrn Negative (Negative) Urine Cocaine Screen Negative (Negative) U Cannabinoids Screen Negative (Negative) COVID-19 Source SARS-CoV-2 (PCR) (Negative) Influenza Type A (PCR) (Negative) Influenza Type B (PCR) (Negative) RSV (PCR) (Negative) 07/10/25 Range/Units 12:25 WBC (4.4-10.8) 10^3/uL RBC (3.93-5.22) 10^6/uL Hgb (11.2-15.7) g/dL Hct (36.0-46.0) % MCV (80-95) fL MCH (27.0-33.0) pg MCHC (32.0-36.0) % RDW (11.7-14.6) % Plt Count (130-400) 10^3/uL MPV (8.0-11.0) fL Immature Gran % % Neutrophils % % Lymphocytes % % Monocytes % % Eosinophils % % Basophils % % Nucleated RBC % (0.0-0.3) % Absolute Neutrophils (1.2-6.7) 10^3/uL Absolute Lymphocytes (1.2-3.4) 10^3/uL Absolute Monocytes (0.1-0.8) 10^3/uL Absolute Eosinophils (0.0-0.7) 10^3/uL Absolute Basophils (0.0-0.2) 10^3/uL RBC Morphology Hypochromasia Poikilocytosis Anisocytosis APTT (20.6-30.2) sec D-Dimer (<500) ng/mlFEU ABG Sample Site ABG pH ABG pCO2 ABG pO2 ABG HCO3 ABG Total CO2 ABG O2 Saturation ABG Base Excess VBG pH (7.31-7.41) VBG pCO2 (41-51) mmHg VBG pO2 mmHg VBG HCO3 (23-28) mmol/L VBG Total CO2 (24-29) mmol/L VBG O2 Saturation % VBG Base Excess (-2-3) mmol/L VBG Lactate (<or=2.0) mmol/L Sodium (136-145) mmol/L Potassium (3.5-5.1) mmol/L Chloride (98-107) mmol/L Carbon Dioxide (20.0-31.0) mmol/L Anion Gap (3-11) mmol/L BUN (9-23) mg/dL Creatinine (0.55-1.02) mg/dL Est GFR (CKD-EPI 2020) (mL/min/1.73m2) Glucose (74-106) mg/dL Calcium (8.3-10.6) mg/dL Iron (50-170) ug/dL TIBC (250-425) ug/dL Transferrin % Sat (15-50) % Total Bilirubin (0.2-1.2) mg/dL AST (<34) U/L ALT (10-49) U/L Alkaline Phosphatase (46-116) U/L Troponin I (<35) ng/L NT-Pro-B Natriuret Pep (<300) pg/mL Total Protein (5.7-8.2) g/dL Albumin (3.4-5.0) g/dL Vitamin B12 (211-911) pg/mL Folate (>5.38) ng/mL TSH (0.55-4.78) uIU/mL Urine Color (Yellow) Urine Clarity (Clear) Urine pH (5-8) Ur Specific Bowen (1.005-1.025) Urine Protein (Neg-Trace) mg/dL Urine Ketones (Negative) mg/dL Urine Blood (Negative) Urine Nitrite (Negative) Urine Bilirubin (Negative) Urine Urobilinogen (Up to 0.2) mg/dL Ur Leukocyte Esterase (Negative) Urine RBC (0-2) HPF Urine WBC (0-5) HPF Ur Epithelial Cells (Negative) HPF Urine Crystals (Negative) HPF Urine Bacteria (Negative) HPF Urine Casts (Negative) LPF Urine Mucus (Negative) Ur Culture Indicated? Urine Glucose (Negative) mg/dL Urine Opiates Screen (Negative) Urine Methadone Screen (Negative) Ur Barbiturates Screen (Negative) Ur Tricyclics Screen (Negative) Ur Amphetamines Screen (Negative) U Benzodiazepines Scrn (Negative) Urine Cocaine Screen (Negative) U Cannabinoids Screen (Negative) COVID-19 Source Nasopharynx SARS-CoV-2 (PCR) Negative (Negative) Influenza Type A (PCR) Negative (Negative) Influenza Type B (PCR) Negative (Negative) RSV (PCR) Negative (Negative) Intake and Output - 24 Hour Total 07/10/25 11:38 thru 07/11/25 03:25 Intake Total 332.508 Output Total 3505 Balance -3172.492 Weight 109.7 kg Intake: IV 332.508 Output: Gastric Drainage 380 Oral 380 Urine 3125 Other: Urine Color Light [place] Urine Appearance Clear Urinary Catheter Urinary Catheter Date of 07/10/25 Insertion [Urethral (Villatoro)] Time of insertion [Urethral ( 13:30 Villatoro)] Falls Risk Assessment History of Falls Previous History 07/10/25 13:40 Contributing Factors Confusion,Unstable, 07/10/25 13:40 Impairments Ambulatory Aids Uses ambulatory device + 07/10/25 13:40 Tubes/Lines With any additional score 07/10/25 13:40 Gait Evaluation W/no contributing factors 07/10/25 13:40 Cognition No cognitive impairment 07/10/25 13:40 Fall Total Score 84 07/10/25 13:40 Level of Risk Maximum Risk 07/10/25 13:40 Restraint Information Behavior Requiring Restraints/ Harm to Patient Seclusion Date of Initiation 07/10/25 Time Restraints were Initiated 23:36 Note intubated w/ propofol/fent gtts infusing continuously Problems (Last Updated 07/06/25 @ 08:24 by Lex Montes MD) Respiratory distress (Acute) Anisocoria (Acute) AMS (altered mental status) (Acute) CHF (congestive heart failure) (Chronic) Respiratory failure with hypoxia and hypercapnia (Acute) Iron deficiency (Acute) Thyroid nodule (Acute) Endotracheally intubated (Acute) PAF (paroxysmal atrial fibrillation) (Chronic) Opioid use disorder, severe, on maintenance therapy, dependence (Acute) Microcytic anemia (Chronic) Attestation Statement: By documenting the first initial, last name, and credentials of the reporting nurse below, both parties acknowledge that all relevant information regarding the patient handoff has been communicated, and that all questions have been addressed to ensure continuity and safety of care. Additional Patient Information/Comments: Report Received From: Medina Trejo RN
[2025-07-11] MEDS: fentaNYL 1,000 MCG in Normal Saline 80 ML 11 MCG IV_INF ×2 (05:44→16:35)
[2025-07-11 05:53] LABS: BE 14 mmol/L (-2-3); HCO3 38 mmol/L (22-26)
[2025-07-11 05:54] LABS: FIO2 24 %
[2025-07-11 06:20] LABS: Abs Immature Grans 0.03 10^3/uL (0.0-0.06); HCT 36.1 % (36.0-46.0); HGB 8.9 g/dL (11.2-15.7); Immature Grans % 0.7 %; MCH 19.1 pg (27.0-33.0); MCHC 24.7 % (32.0-36.0); MCV 77 fL (80-95); MPV 9.4 fL (8.0-11.0); Platelet Count 332 10^3/uL (130-400); RBC 4.67 10^6/uL (3.93-5.22); RDW 22.2 % (11.7-14.6); RDW-SD 57.6 fL; WBC 4.06 10^3/uL (4.4-10.8)
[2025-07-11 06:46] LABS: TSH 0.77 uIU/mL (0.55-4.78)
[2025-07-11 06:47] LABS: ALT 10 U/L (10-49); AST 12 U/L (<34); Albumin 3.3 g/dL (3.4-5.0); Alkaline Phosphatase 95 U/L (46-116); Anion Gap 7.5 mmol/L (3-11); BUN 8 mg/dL (9-23); Bilirubin, Total 0.30 mg/dL (0.2-1.2); CO2 37.7 mmol/L (20.0-31.0); Calcium 8.9 mg/dL (8.3-10.6); Chloride 98 mmol/L (98-107); Glucose 117 mg/dL (74-106); Potassium 3.6 mmol/L (3.5-5.1); Sodium 143 mmol/L (136-145); Total Protein 5.7 g/dL (5.7-8.2)
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
[2025-07-11] MEDS: Normal Saline Flush 10 ML SYR IVP ×3 (08:20→22:20)
--- NOTE | 2025-07-11 08:56 | W.PM.PROGNOT ---
Date of Service Date of service: 07/11/25 Time of Service: 08:56 Assessment and Plan Assessment and plan (1) Respiratory failure with hypoxia and hypercapnia: Status: Acute Assessment and plan: -likely secondary to combination of COPD exacerbation and PE -spO2 down to 79 while in ED -CO2 on initial VBG 77, though appears well compensated with pH 7.30 and bicarb 38 -patient failed BiPAP in ED and was intubated -spontaneous breathing trial AM 07/11 failed, will attempt daily breathing trials (2) COPD with acute exacerbation: Status: Acute Assessment and plan: -intubated and sedated -will continue breathing treatements -continue IV steriods while intubated, will transition to PO once tolerating PO intake (3) Pulmonary emboli: Status: Chronic Assessment and plan: -small, but seen on CT -patient has history of a-fib but has not been on anticoagulation due to frequent falls -currently on heparin drip -will transition to PO eliquis once extubated and tolerating PO intake -will need to have discussion with PCP regarding long-term anticoagulation once patient has completed her treatment course (4) PAF (paroxysmal atrial fibrillation): Status: Chronic Assessment and plan: -has not been treated with eliquis as outpatient due to frequent falls -however, now on heparin drip for PE as noted above (5) Anisocoria: Status: Acute Assessment and plan: -admitted provider consulted neurology and they do not recommend specific treatment or give a diagnosis. -patient does not appear to be bleeding as she has had 2 CTs that did not show hemorrhage. -Consider an ophthalmology consult at discharge if problem persists (6) Opioid use disorder, severe, on maintenance therapy, dependence: Status: Acute Assessment and plan: -continue home methadone once extubated and tolerating PO intake (7) Tobacco use disorder: Assessment and plan: -continue with nicotine replacement Subjective Subjective Interval history since last seen: Patient intubated and sedated and does not appear to be in any acute distress. Exam Narrative Exam Narrative: chronically ill appearing olde female laying in bed intubated and sedated, heart RRR, lungs with audible mechanical breath sounds, abdomen soft, non-tender, non-distended Objective Last Vital Signs Temp 98.1 F 07/11/25 00:35 Pulse 50 L 07/11/25 07:31 Resp 16 07/11/25 07:45 BP 97/62 L 07/11/25 07:45 Pulse Ox 91 L 07/11/25 07:45 Laboratory Results - last 24 hr 07/10/25 07/10/25 07/10/25 12:25 13:10 14:00 WBC 7.01 RBC 4.86 Hgb 9.3 L Hct 38.7 MCV 80 D MCH 19.1 L MCHC 24.0 L RDW 21.6 H Plt Count 340 MPV 8.9 Immature Gran % 0.6 Neutrophils % 71.9 Lymphocytes % 13.6 Monocytes % 6.7 Eosinophils % 6.3 Basophils % 0.9 Nucleated RBC % 0.0 Absolute Neutrophils 5.05 Absolute Lymphocytes 0.95 L Absolute Monocytes 0.47 Absolute Eosinophils 0.44 Absolute Basophils 0.06 RBC Morphology See Below Hypochromasia 2+ Poikilocytosis 2+ Anisocytosis 2+ APTT D-Dimer 775 H ABG Sample Site ABG pH ABG pCO2 ABG pO2 ABG HCO3 ABG Total CO2 ABG O2 Saturation ABG Base Excess VBG pH 7.30 L VBG pCO2 77 H* VBG pO2 49 VBG HCO3 38 H VBG Total CO2 36 H VBG O2 Saturation 79 VBG Base Excess 11 H VBG Lactate 1.0 FiO2 Sodium 142 Potassium 3.8 Chloride 99 Carbon Dioxide 38.3 H Anion Gap 5 BUN 7 L Creatinine 0.56 Est GFR (CKD-EPI 2020) 109.40 Glucose 98 Calcium 9.1 Iron TIBC Transferrin % Sat Total Bilirubin 0.30 AST 15 ALT 11 Alkaline Phosphatase 105 Troponin I 16 NT-Pro-B Natriuret Pep 5272 H Total Protein 6.6 Albumin 4.0 Vitamin B12 Folate TSH 1.78 Urine Color Yellow Urine Clarity Clear Urine pH 6.5 Ur Specific [place] 1.020 Urine Protein 30 H Urine Ketones Trace H Urine Blood Negative Urine Nitrite Negative Urine Bilirubin Small H Urine Urobilinogen 1.0 H Ur Leukocyte Esterase Negative Urine RBC 0-2 Urine WBC 0-2 Ur Epithelial Cells Rare Urine Crystals Negative Urine Bacteria Rare Urine Casts 3-5 Hyaline Urine Mucus Heavy Ur Culture Indicated? No Urine Glucose Negative Urine Opiates Screen Negative Urine Methadone Screen Positive A Ur Barbiturates Screen Negative Ur Tricyclics Screen Positive A Ur Amphetamines Screen Negative U Benzodiazepines Scrn Negative Urine Cocaine Screen Negative U Cannabinoids Screen Negative COVID-19 Source Nasopharynx SARS-CoV-2 (PCR) Negative Influenza Type A (PCR) Negative Influenza Type B (PCR) Negative RSV (PCR) Negative 07/10/25 07/11/25 07/11/25 14:10 01:50 02:35 WBC RBC Hgb Hct MCV MCH MCHC RDW Plt Count MPV Immature Gran % Neutrophils % Lymphocytes % Monocytes % Eosinophils % Basophils % Nucleated RBC % Absolute Neutrophils Absolute Lymphocytes Absolute Monocytes Absolute Eosinophils Absolute Basophils RBC Morphology Hypochromasia Poikilocytosis Anisocytosis APTT 23.4 D-Dimer ABG Sample Site ABG pH ABG pCO2 ABG pO2 ABG HCO3 ABG Total CO2 ABG O2 Saturation ABG Base Excess VBG pH 7.33 VBG pCO2 73 H* VBG pO2 34 VBG HCO3 39 H VBG Total CO2 37 H VBG O2 Saturation 58 VBG Base Excess 13 H VBG Lactate FiO2 Sodium Potassium Chloride Carbon Dioxide Anion Gap BUN Creatinine Est GFR (CKD-EPI 2020) Glucose Calcium Iron 15 L TIBC 355 Transferrin % Sat 4 L Total Bilirubin AST ALT Alkaline Phosphatase Troponin I 16 NT-Pro-B Natriuret Pep Total Protein Albumin Vitamin B12 310 Folate 9.7 TSH Urine Color Urine Clarity Urine pH Ur Specific [place] Urine Protein Urine Ketones Urine Blood Urine Nitrite Urine Bilirubin Urine Urobilinogen Ur Leukocyte Esterase Urine RBC Urine WBC Ur Epithelial Cells Urine Crystals Urine Bacteria Urine Casts Urine Mucus Ur Culture Indicated? Urine Glucose Urine Opiates Screen Urine Methadone Screen Ur Barbiturates Screen Ur Tricyclics Screen Ur Amphetamines Screen U Benzodiazepines Scrn Urine Cocaine Screen U Cannabinoids Screen COVID-19 Source SARS-CoV-2 (PCR) Influenza Type A (PCR) Influenza Type B (PCR) RSV (PCR) 07/11/25 07/11/25 07/11/25 05:47 05:50 08:10 WBC 4.06 L RBC 4.67 Hgb 8.9 L Hct 36.1 MCV 77 L MCH 19.1 L MCHC 24.7 L RDW 22.2 H Plt Count 332 MPV 9.4 Immature Gran % 0.7 Neutrophils % 87.2 Lymphocytes % 9.4 Monocytes % 2.5 Eosinophils % 0.0 Basophils % 0.2 Nucleated RBC % 0.0 Absolute Neutrophils 3.54 Absolute Lymphocytes 0.38 L Absolute Monocytes 0.10 Absolute Eosinophils 0.00 Absolute Basophils 0.01 RBC Morphology Hypochromasia Poikilocytosis Anisocytosis APTT > 155.0 H* D-Dimer ABG Sample Site Right Radial ABG pH 7.43 ABG pCO2 57 H ABG pO2 52 L ABG HCO3 38 H ABG Total CO2 35 H ABG O2 Saturation 87 L ABG Base Excess 14 H VBG pH VBG pCO2 VBG pO2 VBG HCO3 VBG Total CO2 VBG O2 Saturation VBG Base Excess VBG Lactate FiO2 24 Sodium 143 Potassium 3.6 Chloride 98 Carbon Dioxide 37.7 H Anion Gap 7.5 BUN 8 L Creatinine 0.42 L Est GFR (CKD-EPI 2020) 152.47 Glucose 117 H Calcium 8.9 Iron TIBC Transferrin % Sat Total Bilirubin 0.30 AST 12 ALT 10 Alkaline Phosphatase 95 Troponin I NT-Pro-B Natriuret Pep Total Protein 5.7 Albumin 3.3 L Vitamin B12 Folate TSH 0.77 Urine Color Urine Clarity Urine pH Ur Specific [place] Urine Protein Urine Ketones Urine Blood Urine Nitrite Urine Bilirubin Urine Urobilinogen Ur Leukocyte Esterase Urine RBC Urine WBC Ur Epithelial Cells Urine Crystals Urine Bacteria Urine Casts Urine Mucus Ur Culture Indicated? Urine Glucose Urine Opiates Screen Urine Methadone Screen Ur Barbiturates Screen Ur Tricyclics Screen Ur Amphetamines Screen U Benzodiazepines Scrn Urine Cocaine Screen U Cannabinoids Screen COVID-19 Source SARS-CoV-2 (PCR) Influenza Type A (PCR) Influenza Type B (PCR) RSV (PCR) Time Spent with Patient Time Spent with Patient: >50 minutes Time was spent: preparing to see the patient(eg.review tests), obtaining and/or reviewing separately otained hiistory, ordering medications,tests, procedures, referring, communicating with other health long term acute care registered nurse, indepentently interpreting results, counseling the patient and care coordination
[2025-07-11] MEDS: PROPOFOL 1,000 MG/100 ML BTL 26.4 MG IV_INF (09:00)
[2025-07-11] MEDS: Lidocaine 5% Patch 1 PATCH TP (09:30)
--- NOTE | 2025-07-11 10:50 | PHA.REVIEW2 ---
Pharmacy Admission Review Admission Clinical Review Admission Pharmacy Review: COPD with acute exacerbation (Acute) Respiratory distress (Acute) Anisocoria (Acute) AMS (altered mental status) (Acute) Respiratory failure with hypoxia and hypercapnia (Acute) Iron deficiency (Acute) Thyroid nodule (Acute) Endotracheally intubated (Acute) Opioid use disorder, severe, on maintenance therapy, dependence (Acute) No Known Drug Allergies Allergy (Unknown, Verified 07/05/25 17:03) none Resuscitation Status Full Code Height 5 ft 5 in Weight 103.9 kg Comments Comments/Follow Ups: Currently intubated - watch for addition of home meds once patient able to take PO Pharmacy Admission Review Renal Dosing Renal Dosing: BUN 8 mg/dL (9-23) L 07/11/25 05:50 Creatinine 0.42 mg/dL (0.55-1.02) L 07/11/25 05:50 Medications needing adjustments: Reviewed (CrCl 69.76 mL/min) List of meds needing interventions: Current medications are okay Anticoagulation Anticoagulation: Hgb 8.9 g/dL (11.2-15.7) L 07/11/25 05:50 Hct 36.1 % (36.0-46.0) 07/11/25 05:50 Plt Count 332 10^3/uL (130-400) 07/11/25 05:50 Creatinine 0.42 mg/dL (0.55-1.02) L 07/11/25 05:50 Therapeutic Anticoagulation: Reviewed (aPTT > 155 @0810 - held for 1 hour and then decreased by 300 units) Medications: Heparin (infusion @ 15ml/hr) Opiate Usage Evaluate Pain Scale/Pains Meds: Reviewed (fentanyl infusion @ 11ml/hr) Scheduled Bowel Reg ordered if on Opiates?: No (NPO) Relevant Labs Relevant Labs: Sodium 143 mmol/L (136-145) 07/11/25 05:50 Potassium 3.6 mmol/L (3.5-5.1) 07/11/25 05:50 Chloride 98 mmol/L (98-107) 07/11/25 05:50 Electrolytes, C-Reactive P, ESR: Reviewed Cardiac Review Cardiac Review: Troponin I 16 ng/L (<35) 07/10/25 14:10 NT-Pro-B Natriuret Pep 5272 pg/mL (<300) H 07/10/25 13:10 Blood Pressure 112/72 0930 Blood Pressure 96/61 0901 Blood Pressure 109/72 0830 Blood Pressure 108/91 0800 Blood Pressure 97/62 0745 Blood Pressure 97/62 0731 Blood Pressure 96/62 0700 Blood Pressure 102/63 0631 Blood Pressure 148/83 0602 BP, HR, EF%: Reviewed (HR 52 - range in low 50s) QTc Review QTc: Reviewed (439 from 07/10/25) IV to PO Switch IV Medications: Reviewed (intubated) Home Meds Home Med List reviewed: Reviewed Relevent Home Meds Not ordered & why?: acetaminophen (PRN), aripiprazole, Prolia (i2rycokr), diclofenac (PRN), doxepin, duloxetine, fenofibrate, furosemide, gabapentin, lidocaine viscous solution (PRN), methadone, metoprolol, Narcan (PRN), prednisone (has order for IV methylprednisolone) and simvastatin Currently intubated - watch for addition of home meds once patient able to take PO Current Meds Current Medication Order Review: Intervened Comments: Added IV access order Propofol infusion running at 26.4 ml/hr Comments Comments/Follow Ups: Currently intubated - watch for addition of home meds once patient able to take PO
[2025-07-11] MEDS: PROPOFOL 1,000 MG/100 ML BTL 19.8 MG IV_INF (13:07)
[2025-07-11] MEDS: Heparin in 0.45% NaCl 25,000 UNIT/250 ML BAG 15 UNIT IVINF (14:29)
[2025-07-11 16:43] LABS: PTT Activated 95.2 sec (20.6-30.2)
[2025-07-11] MEDS: PROPOFOL 1,000 MG/100 ML BTL 33 MG IV_INF (17:50)
[2025-07-11] MEDS: PROPOFOL 1,000 MG/100 ML BTL 29.7 MG IV_INF (21:43)
[2025-07-11] MEDS: Lidocaine Patch Removal 1 EACH TP (22:21)
[2025-07-11 23:23] LABS: PTT Activated 41.7 sec (20.6-30.2)
[2025-07-12] VITALS (89 sets, daily range): BP systolic 90–161; BP diastolic 55–99; PULSE 47–108; RESP 11–27; TEMP 36.6–37.8; O2SAT 84–96
--- NOTE | 2025-07-12 | DI.US_ITS ---
Exam(s) US LOWER EXTREMITY VENOUS RT EXAM: US LOWER EXTREMITY VENOUS RT CLINICAL HISTORY: dvt TECHNIQUE: Right lower extremity venous ultrasound performed using grayscale, color-flow, and spectral Doppler analysis. COMPARISON: No exams were available for comparison FINDINGS: The study was discontinued at the patient's request. The right common femoral, the deep femoral and proximal and mid femoral veins were evaluated. They show normal compression augmentation and color flow. The distal right femoral vein, popliteal vein and posterior tibialis veins were not interrogated at this time. The saphenofemoral junction is unremarkable. The soft tissues are unremarkable. IMPRESSION: 1. This is an incomplete examination. The study was discontinued at the patient's request. 2. There is no evidence of a DVT in the right common femoral, deep femoral and proximal and mid right femoral veins. 3. The remainder of the right lower extremity deep venous system was not evaluated sonographically. DATA REPOSITORY:
[2025-07-12] MEDS: methylPREDNISolone SUCC 40 MG VIAL 20 MG IVP (00:07)
[2025-07-12] MEDS: PROPOFOL 1,000 MG/100 ML BTL 29.7 MG IV_INF ×2 (00:57→06:31)
[2025-07-12] MEDS: fentaNYL 1,000 MCG in Normal Saline 80 ML 11 MCG IV_INF (02:13)
[2025-07-12] MEDS: Normal Saline 500 ML IV (02:42)
[2025-07-12] MEDS: DEXTROSE 5%-0.45% SALINE 1,000 ML 125 ML IV (04:17)
[2025-07-12] MEDS: POTASSIUM CHLORIDE 10 MEQ/100 ML BAG 100 MEQ IV_INF ×2 (05:14→06:26)
[2025-07-12] MEDS: Heparin in 0.45% NaCl 25,000 UNIT/250 ML BAG 15 UNIT IVINF (05:27)
[2025-07-12 06:23] LABS: HCT 34.4 % (36.0-46.0); HGB 8.7 g/dL (11.2-15.7); MCH 19.3 pg (27.0-33.0); MCHC 25.3 % (32.0-36.0); MCV 76 fL (80-95); MPV 9.9 fL (8.0-11.0); Platelet Count 338 10^3/uL (130-400); RBC 4.51 10^6/uL (3.93-5.22); RDW 23.1 % (11.7-14.6); RDW-SD 61.0 fL; WBC 6.00 10^3/uL (4.4-10.8)
[2025-07-12] MEDS: Normal Saline Flush 10 ML SYR IVP ×2 (06:28→20:40)
[2025-07-12 06:36] LABS: PTT Activated 77.3 sec (20.6-30.2)
[2025-07-12 06:50] LABS: Anion Gap 7 mmol/L (3-11); BUN 12 mg/dL (9-23); CO2 34.7 mmol/L (20.0-31.0); Calcium 8.8 mg/dL (8.3-10.6); Chloride 99 mmol/L (98-107); Glucose 109 mg/dL (74-106); Potassium 3.6 mmol/L (3.5-5.1); Sodium 141 mmol/L (136-145)
[2025-07-12 06:51] LABS: Magnesium 2.0 mg/dL (1.6-2.6)
--- NOTE | 2025-07-12 07:37 | W.PULMCC ---
General Date of Service Date of service: 07/12/25 Time of Service: 07:30 Reason for Admission to ICU: Respiratory failure Assessment and Plan Assessment and plan (1) Pulmonary edema: Status: Acute (2) Hypercapnia: Status: Acute (3) Respiratory failure with hypoxia and hypercapnia: Status: Acute (4) Pulmonary emboli: Status: Chronic (5) COPD with acute exacerbation: Status: Acute Recommendations Pulmonary: Assessment: 1. Acute on chronic hypercapneic respiratory failure - intubated for confusion and hypercapnia 2. Suspected COPD exacerbation - no prior PFT's available. No wheezing on exam 3. Pulmonary infiltrates - suspect pulmonary edema 4. Pulmonary embolism - provoked given recurrent hospitalizations - small RLL subsegmental pulmonary embolism - on heparin gtt 5. Encephalopathy - medication induced vs concussion vs hypercapnia. Likely a combination of these. CT head imaging was unremarkable 6. Microcytic anemia - likely iron deficiency - Ferritin last Recommendations: - hold sedation. Once more awake plan for breathing trial this AM - can continue methylprednisolone - continue heparin gtt for acute PE - will add doxycycline for COPD exacerbation Discussed with Dr. Huitron I&O: Intake & Output 07/09/25 07/10/25 07/11/25 07/12/25 23:59 23:59 23:59 23:59 Intake Total 282.508 / 591.288 1375.200 / 1283.200 987.697 / 987.697 Output Total 2655 / 2655 2150 / 2150 150 / 150 Balance -2372.492 / -2372.492 -866.800 / -866.800 837.697 / 837.697 Weight 109.7 kg 103.9 kg 104.3 kg Code Status: Resuscitation Status Full Code Subjective Critical and life-threatening events over the past 24 hours: Patient is a 64 yo with a history of polysubstance abuse, afib, and tobacco abuse, who was admitted on 07/10 for respiratory failure, confusion and falls. She has had recurrent admissions over the past few months. Was intubated in 05/2025 for respiratory failure and suspected opioid overdose. EMS was contacted after she had a fall from her wheelchair. Brought to the ED and was intubated due to confusion and hypercapnia. CTa chest noted a small RLL pulmonary embolism, as well as trace bilateral pleural effusions and bilateral ground glass opacities. WBC was normal. Currently sedated with propofol and fentanyl. On FiO2 28%. No significant ET tube secretions noted by staff ROS: unable to obtain ROS due to clinical status Exam Narrative Exam Narrative: General: intubated, sedated Head: normocephalic, ET tube in place ENT: no stridor, trachea midline CV: normal rate, regular rhythm Respiratory: no wheezing, no crackles, no rhonchi, no prolonged expiration GI: abd soft, non-tender, non-distended Skin: lower leg erythema bilaterally Extremities: trace edema, no digital clubbing Neuro: sedated Most Recent VS/Results Last Vital Signs Temp 36.9 C 07/12/25 03:07 Pulse 56 L 07/11/25 22:31 Resp 16 07/12/25 06:25 BP 103/58 L 07/12/25 06:25 Pulse Ox 91 L 07/12/25 06:25 Laboratory Results - last 24 hr 07/11/25 07/11/25 07/11/25 08:10 14:50 16:05 WBC RBC Hgb Hct MCV MCH MCHC RDW Plt Count MPV APTT > 155.0 H* > 155.0 H* 95.2 H* Sodium Potassium Chloride Carbon Dioxide Anion Gap BUN Creatinine Est GFR (CKD-EPI 2020) Glucose Calcium Magnesium 07/11/25 07/12/25 22:45 05:39 WBC 6.00 RBC 4.51 Hgb 8.7 L Hct 34.4 L MCV 76 L MCH 19.3 L MCHC 25.3 L RDW 23.1 H Plt Count 338 MPV 9.9 APTT 41.7 H 77.3 H Sodium 141 Potassium 3.6 Chloride 99 Carbon Dioxide 34.7 H Anion Gap 7 BUN 12 Creatinine 0.45 L Est GFR (CKD-EPI 2020) 140.80 Glucose 109 H Calcium 8.8 Magnesium 2.0 Time spent with patient Time spent in Critical Care: 33 Time spent in Critical care included: Coordination of care, Chart review, Documenting critically ill care, Time at immediate bedside and Discussing critically ill care with other medical staff
--- NOTE | 2025-07-12 08:31 | PDOC.CMPRO ---
Date of service: 07/12/25 Time of Service: 08:31 Care Management Progress Note Progress Note Text Progress Note Text: Maryjane was awake and lying in bed when CM met with her. She appeared irritable and stated she has a headache, adding that she could not talk but wanted to know what I wanted. When CM asked Maryjane what brought her back to the hospital, Maryjane reported that she fell out of her wheelchair, and that is it. CM briefly reviewed the option of transitioning to SNF for STR upon discharge, however Maryjane is adamant that she will not consider STR. CM attempted to reflect on the conversation from her previous admission, during which she had expressed openness to STR; however, Maryjane declined to revisit the topic and stated I'm not going because I don't want to, and that's it. At the patients request, CM ended the conversaiton and left the room. At this time there continues to be significant concerns regarding Maryjane's ability to safely manage at home following each of her hospital discharges, however CM will continue to follow and offer discharge support to the best of our abilities. Discharge Potential Discharge Needs: PT Evaluation Anticipated Barriers to Discharge: Medical Status Patient/Family Education Needs: Review discharge instructions, discuss Ask Me Three Transportation: [facility] (Dependent on dispo and mobility at the time of discharge.) Plan: Maryjane continues to refuse SNF for STR and is planning to discharge home via [facility] w/c van (with lift assist) with a resumption of [facility], PT, OT services. CM will follow. Social Determinants of Health Screening Will the Patient Participate in the Screening?: Unable to obtain Do you worry about having a steady place to live?: no Health Related Social Needs Health related social needs details: Patient intubated, unable to answer.
[2025-07-12] MEDS: DOXYCYCLINE 100 MG in Normal Saline 100 ML IVPB (09:06)
[2025-07-12] MEDS: Apixaban 5 MG TAB 10 MG PO ×2 (10:36→20:42)
--- NOTE | 2025-07-12 10:57 | W.PM.PROGNOT ---
Date of Service Date of service: 07/12/25 Time of Service: 10:57 Assessment and Plan Assessment and plan (1) Respiratory failure with hypoxia and hypercapnia: Status: Acute Assessment and plan: -likely secondary to combination of COPD exacerbation and PE -spO2 down to 79 while in ED -CO2 on initial VBG 77, though appears well compensated with pH 7.30 and bicarb 38 -patient failed BiPAP in ED and was intubated -spontaneous breathing trial AM 07/11 failed, successful on AM 07/12 resulting in extubation -patient currently on 2L NC, wean as tolerated (2) COPD with acute exacerbation: Status: Acute Assessment and plan: -had been intubated and sedated, now extubated as noted above -will continue breathing treatements -has been on IV methylpred, transition to PO prednisone now that she is tolerating PO intake -PO doxy started this AM (3) Pulmonary emboli: Status: Chronic Assessment and plan: -small, but seen on CT -patient has history of a-fib but has not been on anticoagulation due to frequent falls -had been on heparin drip, now started on PO eliquis that she is tolerating PO intake -will transition to PO eliquis once extubated and tolerating PO intake -will need to have discussion with PCP regarding long-term anticoagulation once patient has completed her treatment course (4) PAF (paroxysmal atrial fibrillation): Status: Chronic Assessment and plan: -has not been treated with eliquis as outpatient due to frequent falls -however, was on heprin drip and now on tx dose eliquis as noted above (5) Anisocoria: Status: Acute Assessment and plan: -admitted provider consulted neurology and they do not recommend specific treatment or give a diagnosis. -patient does not appear to be bleeding as she has had 2 CTs that did not show hemorrhage. -patient refused MRI on AM 07/12 (6) Opioid use disorder, severe, on maintenance therapy, dependence: Status: Acute Assessment and plan: -continue home methadone once patients mental status returns to baseline (7) Tobacco use disorder: Assessment and plan: -continue with nicotine replacement Subjective Subjective Interval history since last seen: Patient somewhat confused after being extubated earlier this morning, though she is able to state that she is feeling better and has no complaints or concerns at this time. Exam Narrative Exam Narrative: Chronically ill-appearing older female laying in bed in no acute distress, awake, alert, oriented to person and place but continues to lack insight into her medical condition, 2L nasal cannula in place, lungs good auscultation bilaterally, abdomen soft, nontender, nondistended Objective Last Vital Signs Temp 98.1 F 07/12/25 07:15 Pulse 82 07/12/25 09:30 Resp 18 07/12/25 09:30 BP 135/89 07/12/25 09:00 Pulse Ox 92 07/12/25 09:30 Laboratory Results - last 24 hr 07/11/25 07/11/25 07/11/25 14:50 16:05 22:45 WBC RBC Hgb Hct MCV MCH MCHC RDW Plt Count MPV APTT > 155.0 H* 95.2 H* 41.7 H Sodium Potassium Chloride Carbon Dioxide Anion Gap BUN Creatinine Est GFR (CKD-EPI 2020) Glucose Calcium Magnesium 07/12/25 05:39 WBC 6.00 RBC 4.51 Hgb 8.7 L Hct 34.4 L MCV 76 L MCH 19.3 L MCHC 25.3 L RDW 23.1 H Plt Count 338 MPV 9.9 APTT 77.3 H Sodium 141 Potassium 3.6 Chloride 99 Carbon Dioxide 34.7 H Anion Gap 7 BUN 12 Creatinine 0.45 L Est GFR (CKD-EPI 2020) 140.80 Glucose 109 H Calcium 8.8 Magnesium 2.0 Time Spent with Patient Time Spent with Patient: >50 minutes Time was spent: preparing to see the patient(eg.review tests), obtaining and/or reviewing separately otained hiistory, ordering medications,tests, procedures, referring, communicating with other health patient care coordinator, indepentently interpreting results, counseling the patient and care coordination
[2025-07-12] MEDS: Acetaminophen 500 MG TAB 1000 MG PO ×2 (14:27→20:41)
[2025-07-12] MEDS: Methadone 10 MG TAB PO (14:51)
--- NOTE | 2025-07-12 18:13 | NUR.NOTE ---
Nursing Note: Patient is refusing to wear her oxygen, oxygen probe on her finger and her blood pressure cuff. Dr. Huitron has been notified.
[2025-07-12] MEDS: Doxycycline Hyclate 100 MG CAP PO (20:41)
[2025-07-12] MEDS: Doxepin 50 MG CAP 200 MG PO (20:42)
[2025-07-13] VITALS (9 sets, daily range): BP systolic 121–157; BP diastolic 64–105; PULSE 81–110; RESP 15–18; TEMP 36.1–37.5; O2SAT 89–99
[2025-07-13] MEDS: Methadone 10 MG TAB PO ×2 (02:43→14:05)
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
[2025-07-13] MEDS: DULoxetine 30 MG CAP 60 MG PO (08:02)
--- NOTE | 2025-07-13 08:02 | W.PC.ACHO ---
Registration Status: ADM IN Primary Language: Preferred Language: Korean ED Information & Data Chief Complaint SOB 07/10/25 12:02 Chief Complaint SOB 07/10/25 11:48 Other Complaint AMS/LOC 07/10/25 11:48 Triage Note Pt reports that she slipped 07/10/25 11:48 out of her wheelchair this morning- called EMS for a lift assist- EMS found her on the floor, lethargic with oxygen in the 60s- supposed to be on home oxygen but not using it- pt alert/ oriented but very sleepy on arrival Medical / Surgical History (Last Updated 07/06/25 @ 08:24 by Lex Montes MD) Elevated d-dimer Chronic atrial fibrillation Tobacco use disorder Pulmonary nodule Acute hypercapnic respiratory failure Displaced trimalleolar fracture of right ankle Gastric ulcer (08/18/05) Depression (07/18/05) Gastroparesis (07/18/05) Morbid obesity Chronic right-sided lumbar radiculopathy Osteoporosis Type 2 diabetes mellitus Essential hypertension History of fractured rib COPD (chronic obstructive pulmonary disease) (Last Reviewed 05/18/25 @ 18:45 by Rom Carrillo) History of ankle surgery History of back surgery (10/17/17) ULCER/STOMACH SURGERY Replacement of total knee joint (04/17/17) Total replacement of hip KNEE SURGERY EGD - MAC Cholecystectomy (~06/2013) Most Recent Vital Signs Temperature 37.4 C 07/13/25 07:40 Temperature Source Temporal Artery Scan 07/13/25 07:40 Pulse 110 H 07/13/25 07:40 Pulse 91 H 07/12/25 21:00 Respiratory Rate 17 07/13/25 07:40 Respiratory Effort Mechanically Ventilated 07/11/25 00:35 Respiratory Depth Normal 07/11/25 00:35 Blood Pressure 146/64 H 07/13/25 07:40 Blood Pressure Mean 91 07/13/25 07:40 Blood Pressure Position Supine 07/10/25 12:02 Pulse Oximetry 90 L 07/13/25 07:40 Respiratory End-tidal CO2 51 07/12/25 08:28 Oxygen Delivery Method Room Air 07/13/25 07:40 Oxygen Flow Rate 0 07/13/25 07:40 Fraction of Inspired Oxygen (FIO2) 26 07/12/25 08:28 Pain Level 0 07/13/25 03:52 Allergies No Known Drug Allergies Allergy (Unknown, Verified 07/05/25 17:03) none Precautions Isolation Standard precaution 07/10/25 12:02 Active Medications Generic Name Dose Route Start Last Admin Trade Name Freq PRN Reason Stop Dose Admin Acetaminophen 1,000 mg 07/12/25 14:04 07/12/25 20:41 Acetaminophen 500 Mg Tab PO 1,000 mg Q6H PRN PRN Administration Apixaban 10 mg 07/12/25 10:00 07/12/25 20:42 Apixaban 5 Mg Tab PO 07/18/25 20:01 10 mg BID TAINA Administration Doxepin HCl 200 mg 07/12/25 20:00 07/12/25 20:42 Doxepin 50 Mg Cap PO 200 mg HS TAINA Administration Doxycycline Hyclate 100 mg 07/12/25 20:00 07/12/25 20:41 Doxycycline Hyclate 100 Mg Cap PO 100 mg BID TAINA Administration Lidocaine 1 patch 07/11/25 08:30 07/12/25 09:44 Lidocaine 5% Patch TP Not Given DAILY TAINA Methadone HCl 10 mg 07/12/25 14:00 07/13/25 02:43 Methadone 10 Mg Tab PO 10 mg Q12H TAINA Administration Miscellaneous 1 each 07/11/25 20:30 07/12/25 20:43 Lidocaine Patch Removal TP Not Given Q24H TAINA Sodium Chloride 0 ml 07/10/25 21:32 07/12/25 20:40 Normal Saline Flush 10 Ml Syr IVP 50 ml PRN PRN Administration IV IV Catheter Type [Left Forearm Saline Lock ] IV Catheter Type [Right Upper Saline Lock arm] IV Catheter Type [Right Triple Lumen Subclavian Subclavian] IV Catheter Type [Left Triple Lumen Subclavian Internal Jugular] IV Catheter Type [Left Peripheral IV Antecubital] IV Catheter Gauge [Left 20 Forearm] IV Catheter Gauge [Right Upper 20 arm] IV Catheter Gauge [Right 7 Subclavian] IV Catheter Gauge [Left 7 Internal Jugular] IV Catheter Gauge [Left 20 Antecubital] Diagnostics 07/12/25 Range/Units 13:30 APTT Cancelled Akbcc-en-Copk Documentation Fingerstick Glucose Start: 07/12/25 01:04 Freq: Status: Complete Protocol: Activity Type Activity Date Activity User E-sign Co-sign Detail Recorded Client Recorded Date Recorded By Document 07/12/25 01:03 BKG DAEMON(5) NVT-BG05 07/12/25 01:04 BKG DAEMON(6) Fingerstick Glucose Start: 07/12/25 03:11 Freq: .Q6H Status: Complete Protocol: Activity Type Activity Date Activity User E-sign Co-sign Detail Recorded Client Recorded Date Recorded By Document 07/12/25 11:39 BKG DAEMON(7) NVT-BG05 07/12/25 11:41 BKG DAEMON(8) Fingerstick Glucose Start: 07/12/25 15:58 Freq: .ACHS Status: Active Protocol: Activity Type Activity Date Activity User E-sign Co-sign Detail Recorded Client Recorded Date Recorded By Document 07/13/25 07:42 KK [id number] 07/13/25 07:42 KK Intake and Output - 24 Hour Total 07/10/25 11:38 thru 07/13/25 04:53 Intake Total 4381.077 Output Total 7805 Balance -3423.923 Weight 104.3 kg Intake: IV 3911.077 Oral 470 Output: Gastric Drainage 980 Oral 980 Urine 6825 Other: Urine Color Pale Yellow Urine Appearance Clear Stool Size Smear Stool Characteristics Soft Brown Urinary Catheter Urinary Catheter Date of 07/10/25 Insertion [Urethral (Villatoro)] Time of insertion [Urethral ( 13:30 Villatoro)] Falls Risk Assessment History of Falls Previous History 07/10/25 13:40 Contributing Factors Confusion,Unstable, 07/10/25 13:40 Impairments Ambulatory Aids Uses ambulatory device + 07/10/25 13:40 Tubes/Lines With any additional score 07/10/25 13:40 Gait Evaluation W/no contributing factors 07/10/25 13:40 Cognition No cognitive impairment 07/10/25 13:40 Fall Total Score 84 07/10/25 13:40 Level of Risk Maximum Risk 07/10/25 13:40 Restraint Information Behavior Requiring Restraints/ Harm to Patient Seclusion Date of Initiation 07/10/25 Time Restraints were Initiated 23:36 Note Patient has been extubated. Criteria for Restraint Removal No longer threat to self Date Restraints Removed 07/12/25 Time Restraints Removed 09:00 Problems (Last Updated 07/06/25 @ 08:24 by Lex Montes MD) COPD with acute exacerbation (Acute) Pulmonary emboli (Chronic) Hypercapnia (Acute) Respiratory distress (Acute) Anisocoria (Acute) AMS (altered mental status) (Acute) CHF (congestive heart failure) (Chronic) Respiratory failure with hypoxia and hypercapnia (Acute) Iron deficiency (Acute) Thyroid nodule (Acute) Endotracheally intubated (Acute) PAF (paroxysmal atrial fibrillation) (Chronic) Pulmonary edema (Acute) Opioid use disorder, severe, on maintenance therapy, dependence (Acute) Microcytic anemia (Chronic) Notes 07/12/25 18:13 Nursing Notes by Promise Stokes Nursing Note: Patient is refusing to wear her oxygen, oxygen probe on her finger and her blood pressure cuff. Dr. Huitron has been notified. Initialized on 07/12/25 18:13 - END OF NOTE Attestation Statement: By documenting the first initial, last name, and credentials of the reporting nurse below, both parties acknowledge that all relevant information regarding the patient handoff has been communicated, and that all questions have been addressed to ensure continuity and safety of care. Additional Patient Information/Comments: Extubated 07/12/25, recent admission prior, recent falls, wheelchair use, cared for by mother at home, Alert and oriented, wears 1-2L oxygen at home-refusing oxygen here, crackles bilateral bases, SB-sinus arrthymia, BM tonight, hernia on abdomen, transitioned to Eliquis and po antibiotics, plan DC saturday. Report Received From: Becky Kelley RN @ [id number] 07/12/25
[2025-07-13] MEDS: Apixaban 5 MG TAB 10 MG PO ×2 (08:03→20:46)
[2025-07-13] MEDS: Doxycycline Hyclate 100 MG CAP PO ×2 (08:03→20:46)
[2025-07-13] MEDS: Furosemide 20 MG TAB 40 MG PO (08:03)
[2025-07-13] MEDS: ARIPiprazole 5 MG TAB 10 MG PO (08:04)
[2025-07-13] MEDS: ARIPiprazole 15 MG TAB 30 MG PO (08:04)
--- NOTE | 2025-07-13 12:30 | PDOC.CMPRO ---
Date of service: 07/13/25 Time of Service: 12:31 Care Management Progress Note Progress Note Text Progress Note Text: Maryjane was lying in bed, eating her lunch when CM met with her. She was pleasant and engaged well in conversation. She stated that she doesn't want to go to rehab, which she discussed with her palliative care physician yesterday. She is adamant that she wants to return home. CM encouraged her to continue working with PT while inpatient, in order to keep her strength up, and be at her physical baseline upon discharge. Maryjane stated that she is able to transfer independently, when she is home. CM spoke to Maryjane's CO[employer] case management assistant, Franny, who plans to come in and meet her today, as she was recently assigned to her. Maryjane was agreeable to this visit. Per report, Maryjane declined having an MRI and echo today. CM asked Maryjane about this, and she stated that she didn't want to have them and feels that she has had enough testing. CM asked if she has been connected to palliative care, which she has not. CM suggested palliative care to MD as an additional level of support in the community, and to discuss her goals of care. CM will continue to follow. Discharge Potential Discharge Needs: PT Evaluation Anticipated Barriers to Discharge: Medical Status Patient/Family Education Needs: Review discharge instructions, discuss Ask Me Three Transportation: [facility] RCT Transportation: Wheel chair van (will need lift assist ) Plan: Anticipate Maryjane will return home once medically cleared, with a resumption of RN, PT, OT. SNF has been offered, which she is declining at this time. She will transport via [facility] w/c van with a lift assist coordinated upon discharge. She will follow up with her PCP and discharge plan of care. CM will continue to follow. Social Determinants of Health Screening Will the Patient Participate in the Screening?: Unable to obtain Do you worry about having a steady place to live?: no Health Related Social Needs Health related social needs details: Patient intubated, unable to answer.
--- NOTE | 2025-07-13 15:42 | PT.INTREAT ---
PT Notes Visit Reasons: Respiratory Failure Date: 07/13/25 PRECAUTIONS: Fall. standard. Activity as tolerated. SUBJECTIVE: Pt in bed when approached for therapy this afternoon, agreed to participating with therapy session after using bed de [place] [facility]. OBJECTIVE: ?puffy upper lip, ecchymosis on right anterior shoulder ? PAIN: generalized body malaise VITALS: Monitored by nursing Therapeutic Activities 66295: Direct one-on-one instruction in dynamic activities to improve functional performance. ?? BED MOBILITY/TRANSFERS? Rolling L/R: min A Supine-sit: ?min A? Sit-supine: ?min A for bilateral LE elevation ? Sit-stand: ? CGA? Stand-sit: ?CGA ? Bed-Chair:? CGA? Chair-bed: CGA Provided skilled cues and instruction on performance and technique throughout. ASSESSMENT:? Pt able to perform stand pivot transfer going from EOB to chair with armrest, Stand pivot transfer going from chair with armrest to EOB with CGA, side scooting for proper repositioning independently, rolling and upward movement in bed to get situated after session independently using bed tilting for ease with movement. PLAN: Continue with balance training, global strengthening and general conditioning for improved safety, mobility and activity tolerance until pt is ready for DC. TREATMENT CODE/TIME: [id number] 25mins (3:20 to 3:45pm)
--- NOTE | 2025-07-13 16:46 | W.PM.PROGNOT ---
Date of Service Date of service: 07/13/25 Time of Service: 08:00 Assessment and Plan Assessment and plan (1) Respiratory failure with hypoxia and hypercapnia: Status: Resolved Assessment and plan: -likely secondary to combination of COPD exacerbation and PE -spO2 down to 79 while in ED -CO2 on initial VBG 77, though appears well compensated with pH 7.30 and bicarb 38 -patient failed BiPAP in ED and was intubated -spontaneous breathing trial AM 07/11 failed, successful on AM 07/12 resulting in extubation -patient currently on 2L NC, wean as tolerated Jul 13: resolved, on room air (2) COPD with acute exacerbation: Status: Acute Assessment and plan: -had been intubated and sedated, now extubated as noted above -will continue breathing treatements -has been on IV methylpred, transition to PO prednisone now that she is tolerating PO intake -PO doxy started this AM Jul 13: continue steroid course and antibiotics (3) Pulmonary emboli: Status: Chronic Assessment and plan: -small, but seen on CT -patient has history of a-fib but has not been on anticoagulation due to frequent falls -had been on heparin drip, now started on PO eliquis that she is tolerating PO intake -will transition to PO eliquis once extubated and tolerating PO intake -will need to have discussion with PCP regarding long-term anticoagulation once patient has completed her treatment course (4) PAF (paroxysmal atrial fibrillation): Status: Chronic Assessment and plan: -has not been treated with eliquis as outpatient due to frequent falls -however, was on heprin drip and now on tx dose eliquis as noted above (5) Anisocoria: Status: Acute Assessment and plan: -admitted provider consulted neurology and they do not recommend specific treatment or give a diagnosis. -patient does not appear to be bleeding as she has had 2 CTs that did not show hemorrhage. -patient refused MRI on AM 07/12 (6) Opioid use disorder, severe, on maintenance therapy, dependence: Status: Acute Assessment and plan: -continue home methadone once patients mental status returns to baseline (7) Tobacco use disorder: Assessment and plan: -continue with nicotine replacement Subjective Subjective Interval history since last seen: Ms. Cline is comfortable in bed. She is unable to go home today due to her mother not being home. She has reduced her narcotics since previous admission. Discussed avoiding dehydration, and resting after taking her methadone, to prevent future falls. Exam Narrative Exam Narrative: General: This is a pleasant, obese woman in no distress HEENT: Normocephalic, atraumatic CV: RRR Resp: CTAB Abd: soft, NTND MSK: voluntary motion x4 Neuro: awake, alert, no focal deficits Objective Last Vital Signs Temp 37.1 C 07/13/25 12:54 Pulse 97 H 07/13/25 12:54 Resp 18 07/13/25 12:54 BP 153/89 H 07/13/25 12:54 Pulse Ox 90 L 07/13/25 12:54 VTE Prohylaxis Risk Level: Moderate/High Risk Contraindications: None Prophylaxis: Patient anticoagulated Time Spent with Patient Time Spent with Patient: 25-34 minutes Time was spent: preparing to see the patient(eg.review tests), obtaining and/or reviewing separately otained hiistory, ordering medications,tests, procedures, referring, communicating with other health career technical education teacher, indepentently interpreting results, counseling the patient and care coordination
[2025-07-13] MEDS: Doxepin 50 MG CAP 200 MG PO (20:45)
[2025-07-13] MEDS: Acetaminophen 500 MG TAB 1000 MG PO (20:46)
[2025-07-14] MEDS: Methadone 10 MG TAB PO (01:41)
[2025-07-14 03:12] VITALS: BP 113/71; PULSE 77; RESP 16; TEMP 36.8; O2SAT 88
--- NOTE | 2025-07-14 06:29 | W.PULMPROG ---
Assessment and Plan Assessment and plan (1) Pulmonary edema: Status: Acute (2) Respiratory failure with hypoxia and hypercapnia: Status: Resolved (3) COPD with acute exacerbation: Status: Acute (4) Pulmonary emboli: Status: Chronic General Date Of Service Date of service: 07/14/25 Time of Service: 07:50 Requesting physician: Bienvenido Putnam Reason for Consult: Respiratory failure Recommendations: Assessment: 1. Acute on chronic hypercapneic respiratory failure - initially intubated for confusion and hypercapnia. Extubated 07/12 2. COPD exacerbation - no prior PFT's available. Improved 3. Pulmonary infiltrates - suspect pulmonary edema 4. Questionable pulmonary embolism - small RLL subsegmental pulmonary embolism. Currently on eliquis 5. Paroxysmal A-fib Recommendations: - continue with PO pred 50 mg daily and and PO doxycycline 100 BID - plan for 2 more days of steroids/abx - I reviewed the CTa chest imaging with radiology. There was significant artifact on her CTa chest scan, making definitive diagnosis of an acute PE difficult. If there is one, it is a very small, peripheral/subsegmental pulmonary embolism in the right lower lobe. Given her recurrent hospitalizations she is certainly high risk for a VTE. Given her hx of Afib and possible PE, contining anticoagulation is reasonable in my opinion. Counselled her on taking precautions to prevent falls. - I will sign off Discussed with Dr. Putnam Subjective Note Note: Patient is a 64 yo with a history of polysubstance abuse, afib, and tobacco abuse, who was admitted on 07/10 for respiratory failure, confusion and falls. She has had recurrent admissions over the past few months. Was intubated in 05/2025 for respiratory failure and suspected opioid overdose. EMS was contacted after she had a fall from her wheelchair. Brought to the ED and was intubated due to confusion and hypercapnia. CTa chest noted a small RLL pulmonary embolism, as well as trace bilateral pleural effusions and bilateral ground glass opacities. WBC was normal. She was extubated on 07/12. She denied complaints this AM. Denied dyspnea, cough or chest pain. Currently on room air. ROS: 6 pt ROS negative except as above Exam Narrative Exam Narrative: General: intubated, sedated Head: normocephalic ENT: no stridor, trachea midline CV: normal rate, irregular rhythm Respiratory: no wheezing, no crackles, no rhonchi, no prolonged expiration GI: abd soft, non-tender, non-distended Skin: lower leg erythema bilaterally Extremities: trace edema, no digital clubbing Objective Last Vital Signs Temp 36.8 C 07/14/25 03:12 Pulse 77 07/14/25 03:12 Resp 16 07/14/25 03:12 BP 113/71 07/14/25 03:12 Pulse Ox 88 L 07/14/25 03:12 Results Medications Medications: Active Medications Generic Name Dose Route Start Last Admin Trade Name Freq PRN Reason Stop Dose Admin Acetaminophen 1,000 mg 07/12/25 14:04 07/13/25 20:46 Acetaminophen 500 Mg Tab PO 1,000 mg Q6H PRN PRN Administration Albuterol Sulfate 2 puff 07/11/25 01:08 Albuterol Hfa 8 Gm 60 Puff Inh IH QID PRN PRN shortness of breath or wheezing Apixaban 10 mg 07/12/25 10:00 07/13/25 20:46 Apixaban 5 Mg Tab PO 07/18/25 20:01 10 mg BID TAINA Administration Aripiprazole 30 mg 07/13/25 08:30 07/13/25 08:04 Aripiprazole 15 Mg Tab PO 30 mg DAILY TAINA Administration Aripiprazole 10 mg 07/13/25 08:30 07/13/25 08:04 Aripiprazole 5 Mg Tab PO 10 mg DAILY TAINA Administration Bacteriostatic Water 0 ml 07/10/25 13:25 Water,Injection,Bacteriostatic 30 Ml Vial IJ DIRECTED PRN Doxepin HCl 200 mg 07/12/25 20:00 07/13/25 20:45 Doxepin 50 Mg Cap PO 200 mg HS TAINA Administration Doxycycline Hyclate 100 mg 07/12/25 20:00 07/13/25 20:46 Doxycycline Hyclate 100 Mg Cap PO 100 mg BID TAINA Administration Duloxetine HCl 60 mg 07/13/25 08:30 07/13/25 08:02 Duloxetine 30 Mg Cap PO 60 mg DAILY TAINA Administration Furosemide 40 mg 07/13/25 08:30 07/13/25 08:03 Furosemide 20 Mg Tab PO 40 mg DAILY TAINA Administration Lidocaine 1 patch 07/11/25 08:30 07/13/25 08:05 Lidocaine 5% Patch TP Not Given DAILY TAINA Lidocaine/Diphenhydr/Alum/Mg/Simeth 10 ml 07/12/25 10:15 Magic Mouthwash 119 Ml Btl PO Q6H PRN PRN Methadone HCl 10 mg 07/12/25 14:00 07/14/25 01:41 Methadone 10 Mg Tab PO 10 mg Q12H TAINA Administration Miscellaneous 1 each 07/11/25 20:30 07/13/25 22:21 Lidocaine Patch Removal TP Not Given Q24H TAINA Sodium Chloride 0 ml 07/10/25 21:32 07/12/25 20:40 Normal Saline Flush 10 Ml Syr IVP 50 ml PRN PRN Administration Allergies No Known Drug Allergies Allergy (Unknown, Verified 07/05/25 17:03) none Labs 07/12/25 05:39 07/12/25 05:39 Labs: Laboratory Tests Range/Units 07/10/25 07/10/25 07/10/25 12:25 13:10 14:00 WBC (4.4-10.8) 10^3/uL 7.01 RBC (3.93-5.22) 10^6/uL 4.86 Hgb (11.2-15.7) g/dL 9.3 L Hct (36.0-46.0) % 38.7 MCV (80-95) fL 80 D MCH (27.0-33.0) pg 19.1 L MCHC (32.0-36.0) % 24.0 L RDW (11.7-14.6) % 21.6 H Plt Count (130-400) 10^3/uL 340 MPV (8.0-11.0) fL 8.9 Immature Gran % % 0.6 Neutrophils % % 71.9 Lymphocytes % % 13.6 Monocytes % % 6.7 Eosinophils % % 6.3 Basophils % % 0.9 Nucleated RBC % (0.0-0.3) % 0.0 Absolute Neutrophils (1.2-6.7) 10^3/uL 5.05 Absolute Lymphocytes (1.2-3.4) 10^3/uL 0.95 L Absolute Monocytes (0.1-0.8) 10^3/uL 0.47 Absolute Eosinophils (0.0-0.7) 10^3/uL 0.44 Absolute Basophils (0.0-0.2) 10^3/uL 0.06 RBC Morphology See Below Hypochromasia 2+ Poikilocytosis 2+ Anisocytosis 2+ APTT (20.6-30.2) sec D-Dimer (<500) ng/mlFEU 775 H ABG Sample Site ABG pH (7.35-7.45) ABG pCO2 (35-45) mmHg ABG pO2 (80-105) mmHg ABG HCO3 (22-26) mmol/L ABG Total CO2 (23-27) mmol/L ABG O2 Saturation (95-98) % ABG Base Excess (-2-3) mmol/L VBG pH (7.31-7.41) 7.30 L VBG pCO2 (41-51) mmHg 77 H* VBG pO2 mmHg 49 VBG HCO3 (23-28) mmol/L 38 H VBG Total CO2 (24-29) mmol/L 36 H VBG O2 Saturation % 79 VBG Base Excess (-2-3) mmol/L 11 H VBG Lactate (<or=2.0) mmol/L 1.0 FiO2 % Sodium (136-145) mmol/L 142 Potassium (3.5-5.1) mmol/L 3.8 Chloride (98-107) mmol/L 99 Carbon Dioxide (20.0-31.0) mmol/L 38.3 H Anion Gap (3-11) mmol/L 5 BUN (9-23) mg/dL 7 L Creatinine (0.55-1.02) mg/dL 0.56 Est GFR (CKD-EPI 2020) (mL/min/1.73m2) 109.40 Glucose (74-106) mg/dL 98 Calcium (8.3-10.6) mg/dL 9.1 Magnesium (1.6-2.6) mg/dL Iron (50-170) ug/dL TIBC (250-425) ug/dL Transferrin % Sat (15-50) % Total Bilirubin (0.2-1.2) mg/dL 0.30 AST (<34) U/L 15 ALT (10-49) U/L 11 Alkaline Phosphatase (46-116) U/L 105 Troponin I (<35) ng/L 16 NT-Pro-B Natriuret Pep (<300) pg/mL 5272 H Total Protein (5.7-8.2) g/dL 6.6 Albumin (3.4-5.0) g/dL 4.0 Vitamin B12 (211-911) pg/mL Folate (>5.38) ng/mL TSH (0.55-4.78) uIU/mL 1.78 Urine Color (Yellow) Yellow Urine Clarity (Clear) Clear Urine pH (5-8) 6.5 Ur Specific [place] (1.005-1.025) 1.020 Urine Protein (Neg-Trace) mg/dL 30 H Urine Ketones (Negative) mg/dL Trace H Urine Blood (Negative) Negative Urine Nitrite (Negative) Negative Urine Bilirubin (Negative) Small H Urine Urobilinogen (Up to 0.2) mg/dL 1.0 H Ur Leukocyte Esterase (Negative) Negative Urine RBC (0-2) HPF 0-2 Urine WBC (0-5) HPF 0-2 Ur Epithelial Cells (Negative) HPF Rare Urine Crystals (Negative) HPF Negative Urine Bacteria (Negative) HPF Rare Urine Casts (Negative) LPF 3-5 Hyaline Urine Mucus (Negative) Heavy Ur Culture Indicated? No Urine Glucose (Negative) mg/dL Negative Urine Opiates Screen (Negative) Negative Urine Methadone Screen (Negative) Positive A Ur Barbiturates Screen (Negative) Negative Ur Tricyclics Screen (Negative) Positive A Ur Amphetamines Screen (Negative) Negative U Benzodiazepines Scrn (Negative) Negative Urine Cocaine Screen (Negative) Negative U Cannabinoids Screen (Negative) Negative COVID-19 Source Nasopharynx SARS-CoV-2 (PCR) (Negative) Negative Influenza Type A (PCR) (Negative) Negative Influenza Type B (PCR) (Negative) Negative RSV (PCR) (Negative) Negative Range/Units 07/10/25 07/11/25 07/11/25 14:10 01:50 02:35 WBC (4.4-10.8) 10^3/uL RBC (3.93-5.22) 10^6/uL Hgb (11.2-15.7) g/dL Hct (36.0-46.0) % MCV (80-95) fL MCH (27.0-33.0) pg MCHC (32.0-36.0) % RDW (11.7-14.6) % Plt Count (130-400) 10^3/uL MPV (8.0-11.0) fL Immature Gran % % Neutrophils % % Lymphocytes % % Monocytes % % Eosinophils % % Basophils % % Nucleated RBC % (0.0-0.3) % Absolute Neutrophils (1.2-6.7) 10^3/uL Absolute Lymphocytes (1.2-3.4) 10^3/uL Absolute Monocytes (0.1-0.8) 10^3/uL Absolute Eosinophils (0.0-0.7) 10^3/uL Absolute Basophils (0.0-0.2) 10^3/uL RBC Morphology Hypochromasia Poikilocytosis Anisocytosis APTT (20.6-30.2) sec 23.4 D-Dimer (<500) ng/mlFEU ABG Sample Site ABG pH (7.35-7.45) ABG pCO2 (35-45) mmHg ABG pO2 (80-105) mmHg ABG HCO3 (22-26) mmol/L ABG Total CO2 (23-27) mmol/L ABG O2 Saturation (95-98) % ABG Base Excess (-2-3) mmol/L VBG pH (7.31-7.41) 7.33 VBG pCO2 (41-51) mmHg 73 H* VBG pO2 mmHg 34 VBG HCO3 (23-28) mmol/L 39 H VBG Total CO2 (24-29) mmol/L 37 H VBG O2 Saturation % 58 VBG Base Excess (-2-3) mmol/L 13 H VBG Lactate (<or=2.0) mmol/L FiO2 % Sodium (136-145) mmol/L Potassium (3.5-5.1) mmol/L Chloride (98-107) mmol/L Carbon Dioxide (20.0-31.0) mmol/L Anion Gap (3-11) mmol/L BUN (9-23) mg/dL Creatinine (0.55-1.02) mg/dL Est GFR (CKD-EPI 2020) (mL/min/1.73m2) Glucose (74-106) mg/dL Calcium (8.3-10.6) mg/dL Magnesium (1.6-2.6) mg/dL Iron (50-170) ug/dL 15 L TIBC (250-425) ug/dL 355 Transferrin % Sat (15-50) % 4 L Total Bilirubin (0.2-1.2) mg/dL AST (<34) U/L ALT (10-49) U/L Alkaline Phosphatase (46-116) U/L Troponin I (<35) ng/L 16 NT-Pro-B Natriuret Pep (<300) pg/mL Total Protein (5.7-8.2) g/dL Albumin (3.4-5.0) g/dL Vitamin B12 (211-911) pg/mL 310 Folate (>5.38) ng/mL 9.7 TSH (0.55-4.78) uIU/mL Urine Color (Yellow) Urine Clarity (Clear) Urine pH (5-8) Ur Specific [place] (1.005-1.025) Urine Protein (Neg-Trace) mg/dL Urine Ketones (Negative) mg/dL Urine Blood (Negative) Urine Nitrite (Negative) Urine Bilirubin (Negative) Urine Urobilinogen (Up to 0.2) mg/dL Ur Leukocyte Esterase (Negative) Urine RBC (0-2) HPF Urine WBC (0-5) HPF Ur Epithelial Cells (Negative) HPF Urine Crystals (Negative) HPF Urine Bacteria (Negative) HPF Urine Casts (Negative) LPF Urine Mucus (Negative) Ur Culture Indicated? Urine Glucose (Negative) mg/dL Urine Opiates Screen (Negative) Urine Methadone Screen (Negative) Ur Barbiturates Screen (Negative) Ur Tricyclics Screen (Negative) Ur Amphetamines Screen (Negative) U Benzodiazepines Scrn (Negative) Urine Cocaine Screen (Negative) U Cannabinoids Screen (Negative) COVID-19 Source SARS-CoV-2 (PCR) (Negative) Influenza Type A (PCR) (Negative) Influenza Type B (PCR) (Negative) RSV (PCR) (Negative) Range/Units 07/11/25 07/11/25 07/11/25 05:47 05:50 08:10 WBC (4.4-10.8) 10^3/uL 4.06 L RBC (3.93-5.22) 10^6/uL 4.67 Hgb (11.2-15.7) g/dL 8.9 L Hct (36.0-46.0) % 36.1 MCV (80-95) fL 77 L MCH (27.0-33.0) pg 19.1 L MCHC (32.0-36.0) % 24.7 L RDW (11.7-14.6) % 22.2 H Plt Count (130-400) 10^3/uL 332 MPV (8.0-11.0) fL 9.4 Immature Gran % % 0.7 Neutrophils % % 87.2 Lymphocytes % % 9.4 Monocytes % % 2.5 Eosinophils % % 0.0 Basophils % % 0.2 Nucleated RBC % (0.0-0.3) % 0.0 Absolute Neutrophils (1.2-6.7) 10^3/uL 3.54 Absolute Lymphocytes (1.2-3.4) 10^3/uL 0.38 L Absolute Monocytes (0.1-0.8) 10^3/uL 0.10 Absolute Eosinophils (0.0-0.7) 10^3/uL 0.00 Absolute Basophils (0.0-0.2) 10^3/uL 0.01 RBC Morphology Hypochromasia Poikilocytosis Anisocytosis APTT (20.6-30.2) sec > 155.0 H* D-Dimer (<500) ng/mlFEU ABG Sample Site Right Radial ABG pH (7.35-7.45) 7.43 ABG pCO2 (35-45) mmHg 57 H ABG pO2 (80-105) mmHg 52 L ABG HCO3 (22-26) mmol/L 38 H ABG Total CO2 (23-27) mmol/L 35 H ABG O2 Saturation (95-98) % 87 L ABG Base Excess (-2-3) mmol/L 14 H VBG pH (7.31-7.41) VBG pCO2 (41-51) mmHg VBG pO2 mmHg VBG HCO3 (23-28) mmol/L VBG Total CO2 (24-29) mmol/L VBG O2 Saturation % VBG Base Excess (-2-3) mmol/L VBG Lactate (<or=2.0) mmol/L FiO2 % 24 Sodium (136-145) mmol/L 143 Potassium (3.5-5.1) mmol/L 3.6 Chloride (98-107) mmol/L 98 Carbon Dioxide (20.0-31.0) mmol/L 37.7 H Anion Gap (3-11) mmol/L 7.5 BUN (9-23) mg/dL 8 L Creatinine (0.55-1.02) mg/dL 0.42 L Est GFR (CKD-EPI 2020) (mL/min/1.73m2) 152.47 Glucose (74-106) mg/dL 117 H Calcium (8.3-10.6) mg/dL 8.9 Magnesium (1.6-2.6) mg/dL Iron (50-170) ug/dL TIBC (250-425) ug/dL Transferrin % Sat (15-50) % Total Bilirubin (0.2-1.2) mg/dL 0.30 AST (<34) U/L 12 ALT (10-49) U/L 10 Alkaline Phosphatase (46-116) U/L 95 Troponin I (<35) ng/L NT-Pro-B Natriuret Pep (<300) pg/mL Total Protein (5.7-8.2) g/dL 5.7 Albumin (3.4-5.0) g/dL 3.3 L Vitamin B12 (211-911) pg/mL Folate (>5.38) ng/mL TSH (0.55-4.78) uIU/mL 0.77 Urine Color (Yellow) Urine Clarity (Clear) Urine pH (5-8) Ur Specific [place] (1.005-1.025) Urine Protein (Neg-Trace) mg/dL Urine Ketones (Negative) mg/dL Urine Blood (Negative) Urine Nitrite (Negative) Urine Bilirubin (Negative) Urine Urobilinogen (Up to 0.2) mg/dL Ur Leukocyte Esterase (Negative) Urine RBC (0-2) HPF Urine WBC (0-5) HPF Ur Epithelial Cells (Negative) HPF Urine Crystals (Negative) HPF Urine Bacteria (Negative) HPF Urine Casts (Negative) LPF Urine Mucus (Negative) Ur Culture Indicated? Urine Glucose (Negative) mg/dL Urine Opiates Screen (Negative) Urine Methadone Screen (Negative) Ur Barbiturates Screen (Negative) Ur Tricyclics Screen (Negative) Ur Amphetamines Screen (Negative) U Benzodiazepines Scrn (Negative) Urine Cocaine Screen (Negative) U Cannabinoids Screen (Negative) COVID-19 Source SARS-CoV-2 (PCR) (Negative) Influenza Type A (PCR) (Negative) Influenza Type B (PCR) (Negative) RSV (PCR) (Negative) Range/Units 07/11/25 07/11/25 07/11/25 14:50 16:05 22:45 WBC (4.4-10.8) 10^3/uL RBC (3.93-5.22) 10^6/uL Hgb (11.2-15.7) g/dL Hct (36.0-46.0) % MCV (80-95) fL MCH (27.0-33.0) pg MCHC (32.0-36.0) % RDW (11.7-14.6) % Plt Count (130-400) 10^3/uL MPV (8.0-11.0) fL Immature Gran % % Neutrophils % % Lymphocytes % % Monocytes % % Eosinophils % % Basophils % % Nucleated RBC % (0.0-0.3) % Absolute Neutrophils (1.2-6.7) 10^3/uL Absolute Lymphocytes (1.2-3.4) 10^3/uL Absolute Monocytes (0.1-0.8) 10^3/uL Absolute Eosinophils (0.0-0.7) 10^3/uL Absolute Basophils (0.0-0.2) 10^3/uL RBC Morphology Hypochromasia Poikilocytosis Anisocytosis APTT (20.6-30.2) sec > 155.0 H* 95.2 H* 41.7 H D-Dimer (<500) ng/mlFEU ABG Sample Site ABG pH (7.35-7.45) ABG pCO2 (35-45) mmHg ABG pO2 (80-105) mmHg ABG HCO3 (22-26) mmol/L ABG Total CO2 (23-27) mmol/L ABG O2 Saturation (95-98) % ABG Base Excess (-2-3) mmol/L VBG pH (7.31-7.41) VBG pCO2 (41-51) mmHg VBG pO2 mmHg VBG HCO3 (23-28) mmol/L VBG Total CO2 (24-29) mmol/L VBG O2 Saturation % VBG Base Excess (-2-3) mmol/L VBG Lactate (<or=2.0) mmol/L FiO2 % Sodium (136-145) mmol/L Potassium (3.5-5.1) mmol/L Chloride (98-107) mmol/L Carbon Dioxide (20.0-31.0) mmol/L Anion Gap (3-11) mmol/L BUN (9-23) mg/dL Creatinine (0.55-1.02) mg/dL Est GFR (CKD-EPI 2020) (mL/min/1.73m2) Glucose (74-106) mg/dL Calcium (8.3-10.6) mg/dL Magnesium (1.6-2.6) mg/dL Iron (50-170) ug/dL TIBC (250-425) ug/dL Transferrin % Sat (15-50) % Total Bilirubin (0.2-1.2) mg/dL AST (<34) U/L ALT (10-49) U/L Alkaline Phosphatase (46-116) U/L Troponin I (<35) ng/L NT-Pro-B Natriuret Pep (<300) pg/mL Total Protein (5.7-8.2) g/dL Albumin (3.4-5.0) g/dL Vitamin B12 (211-911) pg/mL Folate (>5.38) ng/mL TSH (0.55-4.78) uIU/mL Urine Color (Yellow) Urine Clarity (Clear) Urine pH (5-8) Ur Specific [place] (1.005-1.025) Urine Protein (Neg-Trace) mg/dL Urine Ketones (Negative) mg/dL Urine Blood (Negative) Urine Nitrite (Negative) Urine Bilirubin (Negative) Urine Urobilinogen (Up to 0.2) mg/dL Ur Leukocyte Esterase (Negative) Urine RBC (0-2) HPF Urine WBC (0-5) HPF Ur Epithelial Cells (Negative) HPF Urine Crystals (Negative) HPF Urine Bacteria (Negative) HPF Urine Casts (Negative) LPF Urine Mucus (Negative) Ur Culture Indicated? Urine Glucose (Negative) mg/dL Urine Opiates Screen (Negative) Urine Methadone Screen (Negative) Ur Barbiturates Screen (Negative) Ur Tricyclics Screen (Negative) Ur Amphetamines Screen (Negative) U Benzodiazepines Scrn (Negative) Urine Cocaine Screen (Negative) U Cannabinoids Screen (Negative) COVID-19 Source SARS-CoV-2 (PCR) (Negative) Influenza Type A (PCR) (Negative) Influenza Type B (PCR) (Negative) RSV (PCR) (Negative) Range/Units 07/12/25 07/12/25 05:39 13:30 WBC (4.4-10.8) 10^3/uL 6.00 RBC (3.93-5.22) 10^6/uL 4.51 Hgb (11.2-15.7) g/dL 8.7 L Hct (36.0-46.0) % 34.4 L MCV (80-95) fL 76 L MCH (27.0-33.0) pg 19.3 L MCHC (32.0-36.0) % 25.3 L RDW (11.7-14.6) % 23.1 H Plt Count (130-400) 10^3/uL 338 MPV (8.0-11.0) fL 9.9 Immature Gran % % Neutrophils % % Lymphocytes % % Monocytes % % Eosinophils % % Basophils % % Nucleated RBC % (0.0-0.3) % Absolute Neutrophils (1.2-6.7) 10^3/uL Absolute Lymphocytes (1.2-3.4) 10^3/uL Absolute Monocytes (0.1-0.8) 10^3/uL Absolute Eosinophils (0.0-0.7) 10^3/uL Absolute Basophils (0.0-0.2) 10^3/uL RBC Morphology Hypochromasia Poikilocytosis Anisocytosis APTT (20.6-30.2) sec 77.3 H Cancelled D-Dimer (<500) ng/mlFEU ABG Sample Site ABG pH (7.35-7.45) ABG pCO2 (35-45) mmHg ABG pO2 (80-105) mmHg ABG HCO3 (22-26) mmol/L ABG Total CO2 (23-27) mmol/L ABG O2 Saturation (95-98) % ABG Base Excess (-2-3) mmol/L VBG pH (7.31-7.41) VBG pCO2 (41-51) mmHg VBG pO2 mmHg VBG HCO3 (23-28) mmol/L VBG Total CO2 (24-29) mmol/L VBG O2 Saturation % VBG Base Excess (-2-3) mmol/L VBG Lactate (<or=2.0) mmol/L FiO2 % Sodium (136-145) mmol/L 141 Potassium (3.5-5.1) mmol/L 3.6 Chloride (98-107) mmol/L 99 Carbon Dioxide (20.0-31.0) mmol/L 34.7 H Anion Gap (3-11) mmol/L 7 BUN (9-23) mg/dL 12 Creatinine (0.55-1.02) mg/dL 0.45 L Est GFR (CKD-EPI 2020) (mL/min/1.73m2) 140.80 Glucose (74-106) mg/dL 109 H Calcium (8.3-10.6) mg/dL 8.8 Magnesium (1.6-2.6) mg/dL 2.0 Iron (50-170) ug/dL TIBC (250-425) ug/dL Transferrin % Sat (15-50) % Total Bilirubin (0.2-1.2) mg/dL AST (<34) U/L ALT (10-49) U/L Alkaline Phosphatase (46-116) U/L Troponin I (<35) ng/L NT-Pro-B Natriuret Pep (<300) pg/mL Total Protein (5.7-8.2) g/dL Albumin (3.4-5.0) g/dL Vitamin B12 (211-911) pg/mL Folate (>5.38) ng/mL TSH (0.55-4.78) uIU/mL Urine Color (Yellow) Urine Clarity (Clear) Urine pH (5-8) Ur Specific [place] (1.005-1.025) Urine Protein (Neg-Trace) mg/dL Urine Ketones (Negative) mg/dL Urine Blood (Negative) Urine Nitrite (Negative) Urine Bilirubin (Negative) Urine Urobilinogen (Up to 0.2) mg/dL Ur Leukocyte Esterase (Negative) Urine RBC (0-2) HPF Urine WBC (0-5) HPF Ur Epithelial Cells (Negative) HPF Urine Crystals (Negative) HPF Urine Bacteria (Negative) HPF Urine Casts (Negative) LPF Urine Mucus (Negative) Ur Culture Indicated? Urine Glucose (Negative) mg/dL Urine Opiates Screen (Negative) Urine Methadone Screen (Negative) Ur Barbiturates Screen (Negative) Ur Tricyclics Screen (Negative) Ur Amphetamines Screen (Negative) U Benzodiazepines Scrn (Negative) Urine Cocaine Screen (Negative) U Cannabinoids Screen (Negative) COVID-19 Source SARS-CoV-2 (PCR) (Negative) Influenza Type A (PCR) (Negative) Influenza Type B (PCR) (Negative) RSV (PCR) (Negative) Imaging CT scan - chest: report reviewed and image reviewed
[2025-07-14 07:35] VITALS: BP 147/86; PULSE 72; RESP 17; TEMP 36.9; O2SAT 90
[2025-07-14] MEDS: ARIPiprazole 5 MG TAB 10 MG PO (08:02)
[2025-07-14] MEDS: ARIPiprazole 15 MG TAB 30 MG PO (08:02)
[2025-07-14] MEDS: Doxycycline Hyclate 100 MG CAP PO (08:02)
[2025-07-14] MEDS: Apixaban 5 MG TAB 10 MG PO (08:02)
[2025-07-14] MEDS: Furosemide 20 MG TAB 40 MG PO (08:02)
[2025-07-14] MEDS: DULoxetine 30 MG CAP 60 MG PO (08:02)
--- NOTE | 2025-07-14 08:53 | PT.INTREAT ---
PT Notes Visit Reasons: Respiratory Failure Date: 07/14/25 PRECAUTIONS: Fall. standard. Activity as tolerated. SUBJECTIVE: Pt in bed when approached for therapy this morning, agreed to participating with therapy session after finishing her breakfast. OBJECTIVE: ?puffy upper lip, ecchymosis on right anterior shoulder ? PAIN: generalized body malaise VITALS: Monitored by nursing Therapeutic Activities 58514: Direct one-on-one instruction in dynamic activities to improve functional performance. ?? BED MOBILITY/TRANSFERS? Rolling L/R: supervision Supine-sit: ?min A? Sit-supine: ?min A for bilateral LE elevation ? Sit-stand: ? CGA? Stand-sit: ?CGA ? Bed-Chair:? CGA? Chair-bed: CGA Provided skilled cues and instruction on performance and technique throughout. ASSESSMENT:? Pt performed her stand pivot transfer going from EOB to commode with the commode perpendicular to the bed and another chair for pt to use for support. stand pivot transfer going back to EOB after pt finished using the commode doing stand pivot transfer using same configuration, side to side scooting was independent, going back in bed min A for LE elevation to get centered in bed. upward movement in bed using bed tilting to facilitate movement. PLAN: Continue with balance training, global strengthening and general conditioning for improved safety, mobility and activity tolerance until pt is ready for DC. TREATMENT CODE/TIME: 60705o1 25mins (8:10 to 8:35am)
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
[2025-07-14 11:34] VITALS: BP 141/80; PULSE 95; RESP 17; TEMP 37.2; O2SAT 93
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
--- NOTE | 2025-07-14 13:29 | CHAPLAIN ---
Maryjane was on the phone when I walked in. She was moved from the ICU to / after being extubated. Maryjane interrupted her phone call to speak with we briefly. We know each other from her previous admission. I offered support and let Maryjane know that professor of management is available any time if she would like a visit.
--- NOTE | 2025-07-14 13:48 | PDOC.HHF2F ---
Date of service: 07/14/25 Time of Service: 13:48 Home Health Referral Registered Nurse: Check all that apply Instruct on new or changed medication(s)/assess compliance: Ordered Assess for exacerbation of medical condition, instruct patient/caregivers on signs and symptoms to report for early detection: Ordered (worsening back pain; leg weakness) Physical Therapist: Check all that apply Increase strength & endurance for safe mobility at home: Ordered To design/establish home maintenance program: Ordered Fall reduction therapy program for patient with history of frequent falls: Ordered Home safety evaluation and teaching/gait training including stair management (if applicable): Ordered Occupational Therapist: Evaluate and treat for patient unable to perform ADL/IADL/self-care: Ordered Upper extremity strengthening, range and motion: Ordered Head Waiter/Waitress Banquet: Assist with community resources: Ordered Home Bound Status Requires the aid of supportive device (check all that apply): Wheelchair Patient has a condition such that leaving home is medically contraindicated (Describe): Bilateral lower extremity weakness, frequent falls; chronic low back pain; awaiting surgery Encounter Date and Reason: I certify that a FTF encounter for this patient was performed on July 14, 2025 and that such encounter was related to the primary reason the patient requires home health services. The encounter was conducted in the following manner: By me as the certifying physician, TEST BORING CREW CHIEF, PA or By an inpatient physician, TEST BORING CREW CHIEF or PA during an inpatient stay who communicated findings to me, Certification And Authentication I certify that I composed the above information based on my clinical judgment relating to this patient's medical condition and, if applicable, clinical findings communicated to me by the NPP or inpatient physician who performed the FTF encounter. Name of Provider that will be monitoring home health services: Shahzad Olivarez
--- NOTE | 2025-07-14 14:35 | PDOC.CMDIS ---
Date of service: 07/14/25 Time of Service: 14:35 LACE Index Scoring Tool Questions: Length of Stay (in days): 4 - 6 Was the patient admitted via the E.D.?: Yes Comorbidities: Congestive Heart Failure and Chronic Pulmonary Disease E.D. Visits: 5 Answers: Total Score: 16 Risk of Readmission: High Risk Care Management Discharge Plan Reason for Hospitalization: Respiratory Failure Discharge Plan: Maryjane returned home today with a resumption of HH RN, PT, and OT. She transported home via RCT w/c van with a lift assist by [employer], coordinated by [employer]O. Maryjane was encouraged to go to short term rehab prior to returning home, but she declined. Per PT, she was at her functional baseline upon discharge. She will follow up with her PCP, palliative care, and her discharge plan of care. She has a meeting scheduled with her COA catalytic case operator, Franny, next week, where they will discuss options for additional care at home. She is happy to be going home. Patient/Family Education Needs: Review discharge instructions and limitations, discussion of self care needs including ask me three. Services Needed at Discharge: Home Health Care Services (resumption of HH RN, PT, OT) and Transportation (RCT w/c van with lift assist by [employer]) SDOH Health Related Social Needs: Health related social needs lonely/isolated Health related social needs details Patient intubated, unable to answer. Health related social needs details: Patient intubated, unable to answer.
== END 2025-07-14 14:24 | disposition home or self-care (01) | DRG 208 ==
LOC: ER 23:53 → ICU 07-11 00:19 → MS 07-13
PROVIDERS: Family Medicine; Nurse Practitioner Family; Admitting Provider Hospitalist; Emergency Provider Emergency Medicine; PCP Family Medicine; Responsible Provider Family Medicine; Visit Provider Hospitalist
DX: I48.0 Paroxysmal atrial fibrillation; H57.02 Anisocoria; F11.20 Opioid dependence, uncomplicated; E04.1 Nontoxic single thyroid nodule; D50.9 Iron deficiency anemia, unspecified; F17.210 Nicotine dependence, cigarettes, uncomplicated; J44.1 Chronic obstructive pulmonary disease with (acute) exacerbation; J81.1 Chronic pulmonary edema; I50.9 Heart failure, unspecified; I83.018 Varicose veins of right lower extremity with ulcer other part of lower leg; I83.028 Varicose veins of left lower extremity with ulcer other part of lower leg; R29.6 Repeated falls; I26.94 Multiple subsegmental thrombotic pulmonary emboli without acute cor pulmonale; G93.41 Metabolic encephalopathy; J96.01 Acute respiratory failure with hypoxia; J96.02 Acute respiratory failure with hypercapnia; I11.0 Hypertensive heart disease with heart failure; W05.0XXA Fall from non-moving wheelchair, initial encounter; Z99.3 Dependence on wheelchair; R45.89 Other symptoms and signs involving emotional state; G90.2 Horner's syndrome; I45.10 Unspecified right bundle-branch block; R59.0 Localized enlarged lymph nodes; R79.1 Abnormal coagulation profile; M48.061 Spinal stenosis, lumbar region without neurogenic claudication; E11.43 Type 2 diabetes mellitus with diabetic autonomic (poly)neuropathy; K31.84 Gastroparesis; E66.01 Morbid (severe) obesity due to excess calories
CPT/HCPCS: 00123; 31500; 36415; 36556; 36569; 51702; 70496; 70498; 71045; 71275; 76942; 80048; 80053; 80307; 82805; 85027; 87637; 93005; 94640; 96365; 96366; 96375; 97162; 97530; 99232; 99291; 36600; 70450; 72125; 81003; 81015; 82607; 82746; 83540; 83550; 83605; 83735; 83880; 84443; 84484; 85025; 85379; 85730; 93010; 93971; 94002; 94003; 99223; 99233; 99238; J0696; J1644; J1756; J1938; J2312; J2704; J2919; J3010; J3480; J3490; J7620

== ENCOUNTER → 2025-08-04 15:17 | Outpatient (BNVA) | payer MEDICARE, SELFPAY | PROVIDERS: PCP Family Medicine; Referring Provider Family Medicine; Visit Provider Internal Medicine Pulmonary Disease ==